=== PATIENT | female | born 1945 | race Caucasian/White ===

== ENCOUNTER → 2017-01-15 | Outpatient (CLI) | payer MEDICARE ==
--- NOTE | 2017-01-15 16:06 | BD ---
EXAMINATION TYPE: MG DEXA axial skeleton. DATE OF EXAM: 01/15/2017 COMPARISON: 2009 CLINICAL HISTORY: 71-year-old female post menopausal Height: 5'3 Weight: 150 FRAX RISK QUESTIONS: Alcohol (3 or more units per day): no Family History (Parent hip fracture): no Glucocorticoids (More than 3mos): no (Ex: prednisone, prednisolone, methylprednisolone, dexamethasone, and hydrocortisone). History of Fracture in Adulthood: no Secondary Osteoporosis: 1. Type 1 Diabetes: no 2. Hyperthyroidism: no 3. Menopause before 45: no 4. Malnutrition: no 5. Chronic liver disease: no Rheumatoid Arthritis: no Current Tobacco Use: no RISK FACTORS HISTORY OF: Surgery to /Hip(right/left)/ When: total hips 1995 Active: no Postmenopausal woman: yes Lost more than 2 inches in height since high school: yes Frequent falls: yes MEDICATIONS: Thyroid Medications: Which medication: Synthroid How Lon years Additional Medications: blood pressure, cholesterol, anti depressant Additional History: pt uses cane EXAM MEASUREMENTS: Bone mineral densitometry was performed using the [employer] System. Bone mineral density as measured about the Lumbar spine is: ----- L1-L4(G/cm2): 1.654 T Score Values are as follows: ----- L2: 3.8 ----- L3: 5.3 ----- L4: 3.8 ----- L1-L4: 3.9 Bone mineral density has: Increased 4.2% since study of: 05/13/2010 IMPRESSION: Normal bone mineral density as measured in the lumbar spine only. There has been prior bilateral hip surgery. Consider repeating this study in 5 years or sooner if there is some new clinical indication. NOTE: T-SCORE=SD OF THE YOUNG ADULT MEAN.
--- NOTE | 2017-01-17 06:59 | MM ---
Reason for exam: screening (asymptomatic). Last mammogram was performed 1 year and 2 months ago. History: Patient is postmenopausal and had first child at age 31. Family history of premenopausal breast cancer in maternal cousin at age 40. Benign right mammotome panel of the right breast, May 23, 2010. Benign excisional biopsy of the left breast. Took estrogen for 22 years 6 months beginning at age 44. Took progesterone for 22 years 6 months beginning at age 44. Physical Findings: A clinical breast exam by your physician is recommended on an annual basis and results should be correlated with mammographic findings. MG 3D Screening Mammo W/Cad Bilateral CC and MLO view(s) were taken. Prior study comparison: November 23, 2015, bilateral MG 3d screening mammo w/cad. June 22, 2014, bilateral MG screening mammo w CAD. May 30, 2013, CAD bilateral diagnostic mammogram. There are scattered fibroglandular densities. Previous mammotome biopsy in the right breast. No significant changes when compared with prior studies. ASSESSMENT: Negative, BI-RAD 1 RECOMMENDATION: Routine screening mammogram of both breasts in 1 year.
== END | disposition home or self-care (01) ==
LOC: RADMAMWWP 11:55
PROVIDERS: ATTEND Internal Medicine
DX: Z12.31 Encounter for screening mammogram for malignant neoplasm of breast (principal); Z78.0 Asymptomatic menopausal state
CPT/HCPCS: 77080; 77063; G0202

== ENCOUNTER → 2017-05-15 | Outpatient (CLI) | payer MEDICARE ==
--- NOTE | 2017-05-15 09:14 | MR ---
EXAMINATION TYPE: MR shoulder RT wo con DATE OF EXAM: 05/15/2017 8:03 AM COMPARISON: NONE HISTORY: Right shoulder pain TECHNIQUE: Multiplanar multispin echo imaging of the shoulder was performed. FINDINGS: Rotator cuff : Marked irregularity of the supraspinatus tendon and portions of the infraspinatus tend on compatible with tendinopathy. Full thickness partial tear of the supraspinatus tendon anteriorly. Tendinosis subscapularis tendon noted as well. Bursa: No bursal effusion or thickening is seen. Musculature: There is no muscular tear, contusion, or atrophy. Acromioclavicular joint : Elevation humeral head relative to the central glenoid axis resulting in se george subacromial impingement. Subacromial spurring with moderately severe AC joint arthropathy.. Osseous structures : Cystic degenerative change greater humeral tuberosity. No evidence for fracture or osseous lesion within the oosmi-up-evyt. Humeral head bony spurring. Long biceps tendon : The biceps tendon is normally situated within the bicipital groove. No complete or partial biceps tendon tear is present. Tendinosis intra-articular portion of the biceps tendon. Glenohumeral Joint fluid : There is no glenohumeral joint effusion. Cartilage and Bone : No focal hyaline cartilage defects are noted. No Hill-Sachs, reverse Hill-Sachs, or bony Bankart lesions are seen. Labrum : Diminutive superior and inferior glenoid labrum suspicious for chronic labral tears.. OTHER FINDINGS : none IMPRESSION: 1. Severe tendinopathy supraspinatus and infraspinatus tendons. This partial tear as discussed. Bethany tion humeral head resulting in severe subacromial impingement. 2. Cystic degenerative change. 3. Chronic glenoid labral tears.
== END | disposition home or self-care (01) ==
LOC: RADMRIMAIN 07:15
PROVIDERS: ATTEND Internal Medicine Hematology & Oncology
DX: S43.491A Other sprain of right shoulder joint, initial encounter (principal); M67.813 Other specified disorders of tendon, right shoulder

== ENCOUNTER 2017-05-18 11:35 | Inpatient (IN) | payer MEDICARE ==
[2017-05-18] MEDS ORDERED: SODIUM CHLORIDE 0.9% 500 ML IV STA (11:57)
--- NOTE | 2017-05-18 12:01 | ED ---
Overdose HPI - General Chief Complaint: Overdose Stated Complaint: overdose Time Seen by Provider: 05/18/17 11:50 Source: patient, family, RN notes reviewed Mode of arrival: wheelchair Limitations: no limitations - History of Present Illness Initial Comments: This is a 72-year-old female history depression and other medical issues who apparently has not been sleeping well recently she was told she could take an extra Seroquel which she did. She had taken 2.5 mg Ambien apparently still could not sleep with her came home he found that she had taken probably 15 5 mg Ambien somewhere around 9:30 this morning. Patient was brought in for evaluation this unclear whether this was accidental or purposeful. No other reported medications were consume this morning. - Related Data Home Medications Medication Instructions Recorded Confirmed Aspirin 81 mg PO DAILY 12/02/14 05/18/17 Calcium Carbonate/Vitamin D3 1 tab PO DAILY 12/02/14 05/18/17 [Calcium 600-Vit D3 400 Tablet] Levothyroxine Sodium [Synthroid] 50 mcg PO SUMOWETHFR 12/02/14 05/18/17 Multivitamins, Thera [Multivitamin 1 tab PO DAILY 12/02/14 05/18/17 (formulary)] lamoTRIgine [LaMICtal] 150 mg PO DAILY 05/01/15 05/18/17 Lisinopril [Zestril] 20 mg PO DAILY 10/14/15 05/18/17 Potassium Chloride ER [K-Dur 10] 10 meq PO DAILY 10/14/15 05/18/17 QUEtiapine [SEROquel] 25 mg PO HS 10/14/15 05/18/17 Cholecalciferol [Vitamin D3] 1,000 unit PO DAILY 05/18/17 05/18/17 Folic Acid 0.4 mg PO DAILY 05/18/17 05/18/17 Hydrocortisone Cream 1 applic TOPICAL BID PRN 05/18/17 05/18/17 [Hydrocortisone 2.5% Cream] L.acidoph,Paracasei, B.lactis 1 cap PO DAILY 05/18/17 05/18/17 [Probiotic] Latanoprost Ophth [Xalatan 0.005%] 1 drops BOTH EYES HS 05/18/17 05/18/17 Levothyroxine Sodium [Synthroid] 100 mcg PO TUSA 05/18/17 05/18/17 Methylphenidate HCl [Concerta] 18 mg PO DAILY 05/18/17 05/18/17 Sertraline HCl [Zoloft] 50 mg PO DAILY 05/18/17 05/18/17 Vortioxetine Hydrobromide 5 mg PO DAILY 05/18/17 05/18/17 [Trintellix] amLODIPine BESYLATE [Norvasc] 10 mg PO HS 05/18/17 05/18/17 Allergies Allergy/AdvReac Type Severity Reaction Status Date / Time OPIATES AdvReac Unknown AGITATION Uncoded 05/18/17 11:43 Review of Systems ROS Statement: Those systems with pertinent positive or pertinent negative responses have been documented in the HPI. ROS Other: All systems not noted in ROS Statement are negative. Past Medical History Past Medical History: Asthma, GERD/Reflux, Hypertension, Skin Disorder, Thyroid Disorder Additional Past Medical History / Comment(s): PAST HX OF MIGRAINES, HX OF GERD- ( NO PROBLEM NOW), HYPOTHYROID. STATES SHE HAS LITTLE BUMPS ON SKIN THAT ITCH- SHE SEEN HER DRVeronica-IVETTE VALLE., STATES SHE HAD RECTAL PROLAPSE. History of Any Multi-Drug Resistant Organisms: None Reported Past Surgical History: Bariatric Surgery, Joint Replacement, Orthopedic Surgery Additional Past Surgical History / Comment(s): PANNICULECTOMY, LAP BAND(2003), RIGHT TOTAL HIP X2, LEFT TOTAL HIP X2, LLOYD TOTAL KNEES, LLOYD CATARACTS, RIGHT THUMB, D&C'S. Past Anesthesia/Blood Transfusion Reactions: Motion Sickness, Postoperative Nausea & Vomiting (PONV) Past Psychological History: ADD/ADHD, Anxiety, Depression Smoking Status: Former smoker Past Alcohol Use History: Occasional Past Drug Use History: None Reported - Past Family History Mother History Unknown: Yes Family Medical History: Cancer Additional Family Medical History / Comment(s): BLADDER CA- AT 70 YEARS OLD. Father History Unknown: Yes Family Medical History: Coronary Artery Disease (CAD), Myocardial Infarction ([place] ) Additional Family Medical History / Comment(s): AT 60 YRS OLD General Exam - General Exam Comments Initial Comments: This is a well-developed well-nourished lethargic female she does respond to questioning and does follow commands. Limitations: no limitations General appearance: lethargic Head exam: Present: atraumatic, normocephalic, normal inspection Eye exam: Present: normal appearance, PERRL, EOMI. Absent: scleral icterus, conjunctival injection, periorbital swelling ENT exam: Present: normal exam, mucous membranes moist Neck exam: Present: normal inspection. Absent: tenderness, meningismus, lymphadenopathy Respiratory exam: Present: normal lung sounds bilaterally. Absent: respiratory distress, wheezes, rales, rhonchi, stridor Cardiovascular Exam: Present: regular rate, normal rhythm, normal heart sounds. Absent: systolic murmur, diastolic murmur, rubs, gallop, clicks GI/Abdominal exam: Present: soft, normal bowel sounds. Absent: distended, tenderness, guarding, rebound, rigid Extremities exam: Present: normal inspection, full ROM, normal capillary refill. Absent: tenderness, pedal edema, joint swelling, calf tenderness Back exam: Present: normal inspection Neurological exam: Present: alert, oriented X3, CN II-XII intact Psychiatric exam: Present: depressed, flat affect Skin exam: Present: warm, dry, intact, normal color. Absent: rash Course Vital Signs 05/18/17 05/18/17 05/18/17 11:41 12:07 13:26 Temperature 97.7 F Pulse Rate 80 66 76 Respiratory 18 12 14 Rate Blood Pressure 125/74 110/68 102/64 O2 Sat by Pulse 89 L 92 L 97 Oximetry Medical Decision Making - Medical Decision Making I did discuss [employer] the patient and with her as well as with Dr. Villalobos. Patient will be admitted she was medically cleared she was evaluated and will be admitted for inpatient treatment - Lab Data Result diagrams: 05/18/17 11:55 05/18/17 11:55 Lab Results 05/18/17 05/18/17 05/18/17 Range/Units 11:55 11:55 11:55 WBC 10.1 (3.8-10.6) k/uL RBC 4.82 (3.80-5.40) m/uL Hgb 14.6 (11.4-16.0) gm/dL Hct 44.6 (34.0-46.0) % MCV 92.5 (80.0-100.0) fL MCH 30.2 (25.0-35.0) pg MCHC 32.7 (31.0-37.0) g/dL RDW 13.6 (11.5-15.5) % Plt Count 217 (150-450) k/uL Neutrophils % 78 % Lymphocytes % 16 % Monocytes % 3 % Eosinophils % 1 % Basophils % 0 % Neutrophils # 7.9 H (1.3-7.7) k/uL Lymphocytes # 1.6 (1.0-4.8) k/uL Monocytes # 0.3 (0-1.0) k/uL Eosinophils # 0.1 (0-0.7) k/uL Basophils # 0.0 (0-0.2) k/uL Sodium 138 (137-145) mmol/L Potassium 4.1 (3.5-5.1) mmol/L Chloride 105 (98-107) mmol/L Carbon Dioxide 24 (22-30) mmol/L Anion Gap 9 mmol/L BUN 14 (7-17) mg/dL Creatinine 0.88 (0.52-1.04) mg/dL Est GFR (MDRD) Af Amer >60 (>60 ml/min/1.73 sqM) Est GFR (MDRD) Non-Af >60 (>60 ml/min/1.73 sqM) Glucose 124 H (74-99) mg/dL Calcium 10.0 (8.4-10.2) mg/dL Total Bilirubin 0.3 (0.2-1.3) mg/dL AST 23 (14-36) U/L ALT 33 (9-52) U/L Alkaline Phosphatase 59 (38-126) U/L Total Creatine Kinase 46 (30-135) U/L CK-MB (CK-2) 1.1 (0.0-2.4) ng/mL CK-MB (CK-2) Rel Index 2.4 Total Protein 7.6 (6.3-8.2) g/dL Albumin 4.1 (3.5-5.0) g/dL Amylase 67 (30-110) U/L Lipase 76 (23-300) U/L Salicylates <1.0 mg/dL Urine Opiates Screen (NotDetected) Ur Oxycodone Screen (NotDetected) Urine Methadone Screen (NotDetected) Ur Propoxyphene Screen (NotDetected) Acetaminophen <10.0 ug/mL Ur Barbiturates Screen (NotDetected) U Tricyclic Antidepress (NotDetected) Ur Phencyclidine Scrn (NotDetected) Ur Amphetamines Screen (NotDetected) U Methamphetamines Scrn (NotDetected) U Benzodiazepines Scrn (NotDetected) Urine Cocaine Screen (NotDetected) U Marijuana (THC) Screen (NotDetected) Serum Alcohol <10 mg/dL 05/18/17 Range/Units 12:55 WBC (3.8-10.6) k/uL RBC (3.80-5.40) m/uL Hgb (11.4-16.0) gm/dL Hct (34.0-46.0) % MCV (80.0-100.0) fL MCH (25.0-35.0) pg MCHC (31.0-37.0) g/dL RDW (11.5-15.5) % Plt Count (150-450) k/uL Neutrophils % % Lymphocytes % % Monocytes % % Eosinophils % % Basophils % % Neutrophils # (1.3-7.7) k/uL Lymphocytes # (1.0-4.8) k/uL Monocytes # (0-1.0) k/uL Eosinophils # (0-0.7) k/uL Basophils # (0-0.2) k/uL Sodium (137-145) mmol/L Potassium (3.5-5.1) mmol/L Chloride (98-107) mmol/L Carbon Dioxide (22-30) mmol/L Anion Gap mmol/L BUN (7-17) mg/dL Creatinine (0.52-1.04) mg/dL Est GFR (MDRD) Af Amer (>60 ml/min/1.73 sqM) Est GFR (MDRD) Non-Af (>60 ml/min/1.73 sqM) Glucose (74-99) mg/dL Calcium (8.4-10.2) mg/dL Total Bilirubin (0.2-1.3) mg/dL AST (14-36) U/L ALT (9-52) U/L Alkaline Phosphatase (38-126) U/L Total Creatine Kinase (30-135) U/L CK-MB (CK-2) (0.0-2.4) ng/mL CK-MB (CK-2) Rel Index Total Protein (6.3-8.2) g/dL Albumin (3.5-5.0) g/dL Amylase (30-110) U/L Lipase (23-300) U/L Salicylates mg/dL Urine Opiates Screen Not Detected (NotDetected) Ur Oxycodone Screen Not Detected (NotDetected) Urine Methadone Screen Not Detected (NotDetected) Ur Propoxyphene Screen Not Detected (NotDetected) Acetaminophen ug/mL Ur Barbiturates Screen Not Detected (NotDetected) U Tricyclic Antidepress Detected H (NotDetected) Ur Phencyclidine Scrn Not Detected (NotDetected) Ur Amphetamines Screen Not Detected (NotDetected) U Methamphetamines Scrn Not Detected (NotDetected) U Benzodiazepines Scrn Not Detected (NotDetected) Urine Cocaine Screen Not Detected (NotDetected) U Marijuana (THC) Screen Not Detected (NotDetected) Serum Alcohol mg/dL - EKG Data -: EKG Interpreted by [facility] EKG shows normal: sinus rhythm, axis, intervals, QRS complexes, ST-T waves (EKG shows normal sinus rhythm of 72. Interval 158 QRS duration 76 QT since QTC of 392/429 ST-T wave changes.) Rate: normal - Radiology Data Radiology results: report reviewed (I did review the imaging and reports no acute findings.), image reviewed Disposition Clinical Impression: Drug overdose, Depression, Bipolar 1 disorder, depressed Disposition: TRANSFER TO PSYCH HOSP/UNIT Condition: Stable Referrals: Carlos Alberto Guerra MD [Primary Care Provider] - 1-2 days
[2017-05-18] MEDS ORDERED: SODIUM CHLORIDE 0.9% 1,000 ML IV STA (12:04)
[2017-05-18 12:21] LABS: Basophils % (A) 0 %; CH 30.5; CHCM 33.2; Eosinophils # (A) 0.1 k/uL (0-0.7); Eosinophils % (A) 1 %; HCT 44.6 % (34.0-46.0); HDW 2.32; HGB 14.6 gm/dL (11.4-16.0); Luc % (Auto) 1; Lymphocytes # (A) 1.6 k/uL (1.0-4.8); Lymphocytes % (A) 16 %; MCH 30.2 pg (25.0-35.0); MCHC 32.7 g/dL (31.0-37.0); MCV 92.5 fL (80.0-100.0); Mean Platelet Volume 8.6; Monocytes # (A) 0.3 k/uL (0-1.0); Monocytes % (A) 3 %; Neutrophils # (A) 7.9 k/uL (1.3-7.7); Neutrophils % (A) 78 %; RBC 4.82 m/uL (3.80-5.40); RDW 13.6 % (11.5-15.5); WBC 10.1 k/uL (3.8-10.6); WBC (Perox) 10.04
[2017-05-18 12:30] LABS: ALT 33 U/L (9-52); AST 23 U/L (14-36); Acetaminophen <10.0 ug/mL; Alcohol <10 mg/dL; Alkaline Phosphatase 59 U/L (38-126); Amylase 67 U/L (30-110); Anion Gap 9 mmol/L; Blood Urea Nitrogen 14 mg/dL (7-17); Carbon Dioxide 24 mmol/L (22-30); Chloride 105 mmol/L (98-107); Glucose 124 mg/dL (74-99); Non-African American GFR(MDRD) >60 (>60 ml/min/1.73 sqM); Potassium 4.1 mmol/L (3.5-5.1); Salicylate <1.0 mg/dL; Sodium 138 mmol/L (137-145); Total Bilirubin 0.3 mg/dL (0.2-1.3); Total Protein 7.6 g/dL (6.3-8.2)
--- NOTE | 2017-05-18 12:48 | XR ---
EXAMINATION TYPE: XR chest 1V portable DATE OF EXAM: 05/18/2017 COMPARISON: NONE HISTORY: Chest pain and depression. TECHNIQUE: Single frontal view of the chest is obtained. FINDINGS: There is no focal air space opacity, pleural effusion, or pneumothorax seen. The cardiac silhouette size is again upper limits of normal. The osseous structures are intact with degenerativ e changes at the greater tuberosities. IMPRESSION: No acute process.
[2017-05-18 12:58] LABS: Creatine Kinase MB 1.1 ng/mL (0.0-2.4)
[2017-05-18] MEDS ORDERED: amLODIPine 10 MG TAB PO SCH (21:00)
[2017-05-18] MEDS: LATANOPROST 0.005% OPHTH DROPS 2.5 ML BTL BOTH EYES SCH (21:03)
[2017-05-18] MEDS: lamoTRIgine 25 MG TAB PO SCH (21:04)
[2017-05-18] MEDS: QUEtiapine 25 MG TAB PO SCH (21:04)
[2017-05-19] MEDS: MAG HYDROX/AL HYDROX/SIMETH 30 ML CUP PO PRN (02:08)
[2017-05-19] MEDS: ACETAMINOPHEN TAB 325 MG TAB PO PRN ×2 (04:36→13:55)
[2017-05-19] MEDS: LEVOTHYROXINE 50 MCG TAB PO SCH (06:04)
--- NOTE | 2017-05-19 07:34 | CONS ---
CONSULTATION Mrs. Austin presented and was brought into the emergency room earlier today with change in mental status. Apparently, she was found lethargic earlier by her . The patient apparently had difficulty falling asleep last evening. She had the Ambien along with an extra Seroquel and still apparently did not sleep well through the night and into the morning ingested approximately 15 tablets of 5 mg Ambien tablets approximately 9:30 in the morning and apparently her discovered the patient and brought her to the emergency room. She has been somewhat lethargic according to the record, but appears to be generally responsive during this period of time. PAST MEDICAL HISTORY: Is notable for a history of bipolar disorder, attention deficit disorder and general anxiety disorder for which she is followed as an outpatient by Psychiatry. Apparently the patient states that she has been stopping her previous medications for her bipolar depressed as stated. She also has other past medical history that includes hypertension. There is a history of mild intermittent asthma, hypothyroidism on replacement therapy. There is a history of benign monoclonal gammopathy for which she is followed by Hematology. She has had a history of major depression in the past. Patient also has had a numbers surgeries regarding her osteoarthritis. She has had both left and right hip surgeries done in the past and revised in early . She has also had a right knee surgery in 2003 and thumb surgery. She has had appendectomy performed back in 2011 and previous D and C and tubal ligations in the past and previous history of laparoscopic gastric banding. No history of myocardial infarction, diabetes, or stroke. HOME MEDICATIONS: Include aspirin 81 mg daily, calcium 600 with vitamin D3 400 one daily, levothyroxine 50 mcg p.o. daily except for Saturdays and Tuesdays for which she takes 100 mcg. She is on Lamictal 150 mg daily, multiple vitamin daily. Lisinopril was recently decreased from 20 to 10 mg and potassium K-Dur 10 mEq daily. Seroquel 25 mg at bedtime, folic acid 0.4 mg daily, probiotic daily, Xalatan eyedrops 1 drop in both eyes 0.005%, Concerta 18 mg daily, but apparently patient has dropped on her recently and also Zoloft 50 mg daily. The Trintellix for bipolar 5 mg daily as mentioned the patient has stopped and amlodipine 10 mg at bedtime which has recently been decreased to 5 mg. Apparently, she has had agitation with opiates in the past. No other reaction. REVIEW OF SYSTEMS: Presently is negative for any unusual headache. No visual disturbances. She has had some nausea but no vomiting. She has had some diffuse epigastric upset recently , but no more pain or urinary or bowel symptoms. No unusual edema. FAMILY HISTORY: Is positive for coronary artery disease. SOCIAL HISTORY: The patient is a former smoker and apparently does drink some wine on a weekly basis and she does live locally at home with her . Social history is otherwise as stated above. PHYSICAL EXAMINATION: She is on my exam fairly easily aroused, alert and oriented. At times during the examination she is tearful. Vital signs revealed a blood pressure of 102/70 with a pulse of 80 and regular. Respirations were 16 and she was afebrile. Head is atraumatic. The extraocular movements were intact. Neck is supple. No thyromegaly or adenopathy detected. Lungs were clear to auscultation and percussion. HEART: Regular without murmur. Breasts and pelvic exam is deferred. Abdomen is soft and nontender. Extremities revealed no edema. Neurologically she is alert, oriented at this time x3. Cranial nerves were intact. She is moving all extremities without focal neurological changes. LABORATORY VALUES: General chemistries were unremarkable. Chest x-ray revealed no acute changes. EKG revealed regular sinus rhythm without acute changes. IMPRESSION: Overall impression at this point is this is a 72-year-old female admitted to the to the psychiatric floor here at [facility] with a history of bipolar and recent depression, having stopped some of her medications and ingestion of overdose of Ambien. She does have a past medical history as stated above with a history of bipolar, depression and attention deficit disorder, along with hypertension, asthma, hypothyroidism, degenerative joint disease, and the multiple surgeries that she has had in the past and also post bariatric surgery. Overall at this point though her cardiovascular status appears stable. We will hold her antihypertensives tonight and see how her blood pressure is in the morning. Await for further psychiatric input. The labs also being done in the morning will include a thyroid along with electrolytes. I would continue her present thyroid at this dose and further recommendations pending clinical response and results of above. MMODL / IJN: [id number] / [facility]ERSum[facility]
[2017-05-19] MEDS ORDERED: BACITRACIN OINT 1 EACH PACKET TOPICAL ONE (08:04)
[2017-05-19] MEDS: CHOLECALCIFEROL 1,000 UNIT TAB PO SCH (08:08)
[2017-05-19] MEDS: CALCIUM CARB-VIT D 500MG-200UN 1 EACH TAB PO SCH (08:08)
[2017-05-19] MEDS: LISINOPRIL 10 MG TAB PO SCH (08:08)
[2017-05-19] MEDS: SERTRALINE 50 MG TAB PO SCH (08:08)
[2017-05-19] MEDS: ASPIRIN 81 MG PO SCH (08:08)
[2017-05-19] MEDS: FOLIC ACID 1 MG TAB PO SCH (08:08)
[2017-05-19 08:41] LABS: Basophils % (A) 0 %; CH 30.9; CHCM 33.2; Eosinophils # (A) 0.1 k/uL (0-0.7); Eosinophils % (A) 1 %; HCT 44.5 % (34.0-46.0); HDW 2.45; HGB 14.7 gm/dL (11.4-16.0); Luc # (Auto) 0.06; Luc % (Auto) 1; Lymphocytes # (A) 1.1 k/uL (1.0-4.8); Lymphocytes % (A) 15 %; MCH 30.8 pg (25.0-35.0); MCHC 32.9 g/dL (31.0-37.0); MCV 93.6 fL (80.0-100.0); Mean Platelet Volume 7.8; Monocytes # (A) 0.3 k/uL (0-1.0); Monocytes % (A) 3 %; Neutrophils # (A) 5.9 k/uL (1.3-7.7); Neutrophils % (A) 80 %; RBC 4.76 m/uL (3.80-5.40); RDW 12.3 % (11.5-15.5); WBC 7.4 k/uL (3.8-10.6); WBC (Perox) 7.27
[2017-05-19] MEDS ORDERED: LISINOPRIL 20 MG TAB PO SCH (09:00)
[2017-05-19 09:01] LABS: Anion Gap 11 mmol/L; Blood Urea Nitrogen 13 mg/dL (7-17); Carbon Dioxide 21 mmol/L (22-30); Chloride 107 mmol/L (98-107); Cholesterol 229 mg/dL (<200); Glucose 104 mg/dL (74-99); HDL Cholesterol 77 mg/dL (40-60); Non-African American GFR(MDRD) >60 (>60 ml/min/1.73 sqM); Potassium 4.1 mmol/L (3.5-5.1); Sodium 139 mmol/L (137-145)
[2017-05-19] MEDS: MULTIVITAMINS, THERA 1 EACH TAB PO SCH (11:25)
--- NOTE | 2017-05-19 15:41 | HP ---
HISTORY AND PHYSICAL IDENTIFYING DATA: The patient is a 72-year-old female. She resides with her . She was admitted through the emergency room. CHIEF COMPLAINT: The patient has had some issues with depression, anxiety and poor sleep. She impulsively took approximately 17 tablets of Ambien 5 mg, which she said she took out of frustration because she was feeling bad physically and mentally. HISTORY OF PRESENT ILLNESS: The patient was not able to give a clear past history. Medical records are not available to clarify past psychiatric history. The patient reports that she has had long-term problems with depression. She said that she first got started on medications around 1982. She said she took Xanax at that time and continued on Xanax until about 2 years ago. She said that she had some exacerbation of psychiatric issues around 1992, though she was not clear about details. She said a little more than 2 years ago she had an episode where she apparently had manic symptoms. She described going for 2 weeks a with little or no sleep and significantly elevated mood. She had a psychiatric hospitalization in [place]. She apparently was diagnosed with bipolar disorder. She had been started on lithium, though she said she tolerated lithium poorly. She was vague about details. She also said that at some point at that time she was started on Lamictal, though she did not find the Lamictal to be helpful in. She has been followed by Dr. Villalobos and noted that she had just seen him recently. She was not clear as to what adjustments might have been made with her medications. She notes that she has had a lot of physical issues including repeat joint replacement surgeries involving both hips and both knees. She had bariatric surgery with lap band placement, though had complications with that. She seemed to indicate that other than the 2 week episode of elevated mood she had prior to her previous hospitalization that she has not had other manic symptoms before that time or since. She says mostly she has struggled with depression issues. She said that this last summer she was doing fairly well. She was active, doing some traveling including a cruise. She did feel that some of her medications were causing her some problems, though she was not clear about details. home psychotropic medications include Lexapro 10 mg a day, Seroquel 25 mg at bedtime. Strattera 50 mg a day. Lamictal 200 mg a day. She says she has been on a muscle relaxant, though that did not show up on the medications that were recorded as her home medications. She acknowledges that she has had some trouble with her medications, then has some help at home keeping her medications organized. When discussing the overdose of Ambien, she said that she took about 17 tablets of her 's 5 mg Ambien. She was not clear about the idea that it was or was not a suicide attempt. She said she was very frustrated and feeling quite negative and took the medicine in a distressed state. Currently, the patient is prescribed Zoloft 50 mg a day, Concerta 18 mg a day, Trintellix 5 mg a day, Lamictal 150 mg a day and Seroquel 25 mg a day as her psychotropic medications. She is admitted for further evaluation. SUBSTANCE USE HISTORY: Patient reports no current or past problems with any substance abuse issues. MEDICAL HISTORY: The patient has a history of asthma, GERD, hypertension, thyroid disease. The past history of migraine headaches. Further medical history and review of systems as per medical consultation. FAMILY AND SOCIAL HISTORY: Patient was vague on details. She lives with her . 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 She said she has to graduate degrees in. She currently is not working. She is ambulatory though requires 2 walking canes. MENTAL STATUS EXAM: Patient was lying in bed. She gave fair eye contact. Psychomotor activity was slowed. Speech was monotone and soft. She was spontaneous. At times she tended to ramble and was somewhat disorganized in her thoughts. Her affect was anxious. Mood depressed. She was moderately distressed. There was no indication for thought disorder. She did make an effort to answer formal cognitive questions. Insight was uncertain. Judgment poor. Fund of knowledge average. PHYSICAL EXAMINATION: Physical exam as per medical consultation. ASSESSMENT: This 70-year-old female she is admitted for a history of depression and possible bipolar disorder. She has a number of general health complications that may be impacting her current situation. Psychosocial stressors are unclear. Her impulse towards taking excessive medications is not fully clear as far as motivation. Her strengths include a long history of good function academically and professionally. Weakness includes possible cognitive issues. DIAGNOSES: 1. Major depression with acute exacerbation. 2. Rule out bipolar disorder. 3. History of bariatric surgery with lap band placement with complications. 4. Gastroesophageal reflux disease. 5. Hypertension. 6. Hypothyroidism. 7. Asthma. RECOMMENDATIONS: Patient will be admitted for comprehensive medical psychiatric and psychosocial evaluation. We will engage the patient in individual and group therapeutic activities. I will continue the patient on Zoloft 50 mg a day, Seroquel 25 mg a day and Lamictal 25 mg at bedtime. At this point, I will keep the patient off her Concerta and Trintellix. She will need time to recover from excessive exposure to Ambien. We will focus on stabilization and discharge planning. MMLAVELLE / IJPhi: [id number] /
[2017-05-19] MEDS: lamoTRIgine 25 MG TAB PO SCH (20:27)
[2017-05-19] MEDS: QUEtiapine 25 MG TAB PO SCH (20:27)
[2017-05-19] MEDS: LATANOPROST 0.005% OPHTH DROPS 2.5 ML BTL BOTH EYES SCH (20:27)
[2017-05-20] MEDS: MAGNESIUM HYDROXIDE 2,400 MG/10 ML CUP PO PRN ×2 (00:27→16:20)
[2017-05-20] MEDS: ACETAMINOPHEN TAB 325 MG TAB PO PRN ×2 (00:27→16:19)
[2017-05-20] MEDS: MAG HYDROX/AL HYDROX/SIMETH 30 ML CUP PO PRN (00:31)
[2017-05-20] MEDS: LEVOTHYROXINE 50 MCG TAB PO SCH (05:35)
[2017-05-20] MEDS ORDERED: PANTOPRAZOLE 40 MG TABLET PO SCH (07:30)
[2017-05-20] MEDS: FOLIC ACID 1 MG TAB PO SCH (08:33)
[2017-05-20] MEDS: SERTRALINE 50 MG TAB PO SCH (08:33)
[2017-05-20] MEDS: CALCIUM CARB-VIT D 500MG-200UN 1 EACH TAB PO SCH (08:33)
[2017-05-20] MEDS: LISINOPRIL 10 MG TAB PO SCH (08:33)
[2017-05-20] MEDS: ASPIRIN 81 MG PO SCH (08:33)
[2017-05-20] MEDS: MULTIVITAMINS, THERA 1 EACH TAB PO SCH (08:33)
[2017-05-20] MEDS: CHOLECALCIFEROL 1,000 UNIT TAB PO SCH (08:33)
--- NOTE | 2017-05-20 12:01 | P.PN ---
Progress Note - Text The patient is a 72-year-old female who presented to the emergency room on the 10th after ingestion of the numerous Ambien tablets. She was presently lethargic on presentation. Apparently she has been complaining of some refractory depression as of late. She has been admitted here to the psychiatric floor here at [facility]. She states she overall feels better. She does complain of some epigastric discomfort. She denies any nausea vomiting or chest pain. No shortness of breath. No unusual urinary or bowel symptoms. vital signs reveal a temperature 97.5 with a pulse of 102 and respirations 16. Blood pressure 133/87 and she is 99% saturated on room air. She is sitting up at the side of the bed alert and oriented. In no acute distress. Lung and heart examination is clear and regular. Abdomen is generally soft and nontender without rebound guarding or masses detected. No unusual edema. No focal neurological deficits noted. laboratory: CBC from yesterday was unremarkable. Electrolytes also were normal although CO2 content was 21. Blood sugar was 104. Her A1c is 5.4. Calcium is 10. GFR is greater than 60. Mild elevation of LDL cholesterol of 133. Total cholesterol 229. Moderately elevated cholesterol at 77 and triglycerides were 93. Would not add cholesterol medication at this time. All her previous liver function testing were good. Amylase and lipase normal. TSH normal at 1.69. Impressions and plan Overall this 72-year-old female is generally doing well. She has had her psychiatric evaluation and treatment is in progress. She does complain of some epigastric discomfort and her Protonix will be increased to twice a day. This should take the place of her omeprazole. if symptoms persist she may need further gastrointestinal evaluation and likely can be done as an outpatient later. She is asking for home medication that apparently is [id number] for her a lactose intolerance and I did discuss with nursing staff that her can bring those in for her. Blood pressures are doing fairly well and continue present regimen pending further readings. Please call for questions concerns or problems. Dr. Man consumer insights specialist for me over the weekend.
[2017-05-20] MEDS: PANTOPRAZOLE 40 MG TABLET PO SCH (16:21)
[2017-05-20] MEDS: LACTASE ENZYME PO PRN ×2 (17:34→20:39)
[2017-05-20] MEDS: lamoTRIgine 25 MG TAB PO SCH (20:59)
[2017-05-20] MEDS: LATANOPROST 0.005% OPHTH DROPS 2.5 ML BTL BOTH EYES SCH (20:59)
[2017-05-20] MEDS ORDERED: QUEtiapine 25 MG TAB PO PRN (21:00)
[2017-05-20] MEDS ORDERED: QUEtiapine 25 MG TAB PO SCH (21:00)
[2017-05-20] MEDS ORDERED: traZODone HCL 50 MG TAB PO SCH (21:00)
--- NOTE | 2017-05-20 21:21 | PN ---
PROGRESS NOTE DATE OF SERVICE: 05/20/2017. CHIEF COMPLAINT: The patient has had some issues with depression, anxiety and poor sleep. She impulsively took 17 tablets of Ambien 5 mg, which she said she took out of frustration because she was feeling bad physically and mentally. INTERVAL HISTORY: Patient has been doing fairly well. She had a quiet evening last night. She said unfortunately she only slept about 3 hours. She notes that she often has to wake up in the night to urinate and then it is very difficult for her to get back to sleep. She does say that her mood is improved. She has a better outlook. She has been able to begin ambulating with the assistance of her walking cane. She says this is been help for her just to be able to be more physically active. She has been up and about. She has been appropriate in her behavior. She has had some problems with diarrhea. She has not had other change in her general health. She tolerates psychotropic medications. MENTAL STATUS: Patient gave good eye contact. She was a little restless. Her thoughts were clear. Her affect was a little constricted. She did smile some. Her mood was reserved, though not down or depressed. She did appear to be significantly distressed. ASSESSMENT: I will continue the current diagnosis and treatment plan. I will add trazodone 75 mg at bedtime in addition to her other psychotropic medications. The patient has shown improvement in her mood. We will continue to focus on stabilization and discharge planning. MMLAVELLE / MYRON: [id number] /
[2017-05-21] MEDS: ACETAMINOPHEN TAB 325 MG TAB PO PRN ×4 (01:56→19:05)
[2017-05-21] MEDS: LEVOTHYROXINE 50 MCG TAB PO SCH (05:44)
[2017-05-21] MEDS: CHOLECALCIFEROL 1,000 UNIT TAB PO SCH (09:23)
[2017-05-21] MEDS: CALCIUM CARB-VIT D 500MG-200UN 1 EACH TAB PO SCH (09:23)
[2017-05-21] MEDS: SERTRALINE 50 MG TAB PO SCH (09:23)
[2017-05-21] MEDS: FOLIC ACID 1 MG TAB PO SCH (09:23)
[2017-05-21] MEDS: PANTOPRAZOLE 40 MG TABLET PO SCH ×2 (09:23→16:55)
[2017-05-21] MEDS: ASPIRIN 81 MG PO SCH (09:23)
[2017-05-21] MEDS: LISINOPRIL 10 MG TAB PO SCH (09:23)
--- NOTE | 2017-05-21 11:02 | P.PN ---
Progress Note - Text Interval history: The patient is found in her room she is lying awake in bed. She has her legs elevated due to experiencing dependent edema. The patient was admitted Sunday after overdosing with 17 Ambien tablets. The patient states that she hadn't slept well the night before felt overwhelmed in the morning and took the medication. She states it wasn't necessarily her intent to but knew she was assuming a safety risk by taking that many pills. She does have a history of an intentional suicide attempt with Xanax overdose proximally 2 years ago. The patient is known to my outpatient practice. In the recent past she had discontinued the Lamictal which was serving as a mood stabilizer. We have reinstituted the Lamictal and she is agreeable. She reports feeling overwhelmed with several stressors at home and focuses on communication difficulties with her spouse. We discussed the need for her to develop more productive activity for herself. She reports she has been responding well to supportive input from nursing and social work. Mental status exam: The patient is a female appearing her stated age. She is lying in bed. She is alert pleasant and cooperative. She endorses recent feelings of depression and frustration. She verbalizes no ongoing suicidal or homicidal ideation intent or plan. There is no report or evidence of psychosis. Thought process for the most part is linear she demonstrates no tangential thinking loose associations or flight of ideas. She does not appear hypomanic or manic at this time. She demonstrates no verbal or physical aggressiveness. No abnormal involuntary movements. Affect is expressive ranging from smiling to brief tearfulness. Plan: The patient will continue on her current psychotropic medications however we will discontinue the trazodone. She has been on that before with lack of efficacy. We will continue the Seroquel and titrate to 75 mg at bedtime Lamictal will be increased to 50 mg at bedtime continue Zoloft 50 mg daily. She was previously on one-to-one supervision due to fall risk after the Ambien overdose. It appears that she is able to ambulate as usual. Nursing will continue to monitor. She is encouraged to attend groups. We will monitor her safety in general. We will involve her as she will allow in treatment planning and discharge planning. The patient is not yet appropriate for discharge home given the recent overdose. Vital signs reviewed. Her primary care physician has seen her in the hospital and he will continue to follow.
[2017-05-21] MEDS: MULTIVITAMINS, THERA 1 EACH TAB PO SCH (11:46)
[2017-05-21] MEDS: LACTASE ENZYME PO PRN (20:18)
[2017-05-21] MEDS: amLODIPine 10 MG TAB PO SCH (21:08)
[2017-05-21] MEDS: lamoTRIgine 25 MG TAB PO SCH (21:09)
[2017-05-21] MEDS: LATANOPROST 0.005% OPHTH DROPS 2.5 ML BTL BOTH EYES SCH (21:09)
[2017-05-21] MEDS: QUEtiapine 25 MG TAB PO SCH (21:09)
[2017-05-22] MEDS: ACETAMINOPHEN TAB 325 MG TAB PO PRN ×3 (05:59→19:03)
[2017-05-22] MEDS: LEVOTHYROXINE 50 MCG TAB PO SCH (05:59)
[2017-05-22 06:00] VITALS: TEMP 97.6
--- NOTE | 2017-05-22 07:58 | P.PN ---
Progress Note - Text The patient is a 72-year-old female who presented to the emergency room on May 18 after ingestion of numerous Ambien tablets. Patient initially presented in a lethargic state. Prior to admission she had been having some refractory depression. Patient apparently also had been self adjusting her medication. She is presently on the psychiatric floor at [facility]. This morning she is sitting on the side of the bed. She states she overall feels better. She has some diffuse joint aches from her arthritis. Patient also fell when she was trying to open up her drawer on the bottom of her bed. Denies any specific head injury. Denies any chest pain or shortness of breath. No nausea or vomiting. This morning vital signs were a temperature of 97.6 with a pulse of 88 respirations 14. Blood pressure was 133/71. She is overall pleasant and oriented. No respiratory distress. No unusual edema. No new focal neurological changes. Patient has been up ambulating. No new labs this morning. Impressions and plans: psychiatric evaluation and treatment in process. Blood pressures are doing better on lisinopril and amlodipine. Overall her pulse and blood pressure are lower. Would continue present medications. Advance as per psychiatry.
[2017-05-22] MEDS: ASPIRIN 81 MG PO SCH (08:04)
[2017-05-22] MEDS: LISINOPRIL 10 MG TAB PO SCH (08:04)
[2017-05-22] MEDS: CHOLECALCIFEROL 1,000 UNIT TAB PO SCH (08:04)
[2017-05-22] MEDS: PANTOPRAZOLE 40 MG TABLET PO SCH ×2 (08:04→17:12)
[2017-05-22] MEDS: SERTRALINE 50 MG TAB PO SCH (08:05)
[2017-05-22] MEDS: CALCIUM CARB-VIT D 500MG-200UN 1 EACH TAB PO SCH (08:05)
[2017-05-22] MEDS: FOLIC ACID 1 MG TAB PO SCH (08:05)
--- NOTE | 2017-05-22 09:59 | P.PN ---
Progress Note - Text Interval history: The patient's is found in her room she follows me to an interview room. She has been compliant with her medications she reports attending some groups. She is using a wheelchair for stability as she has a known gait disturbance. She is feeling more hopeful. She denies having any suicidal ideation intent or plan. She has had a conversation with her . She spontaneously reports future oriented thinking in describing tasks that she wants to accomplish at home and resources she will employed. Mental status exam: The patient is an alert female she is dressed in hospital attire. She ambulates by pushing a wheelchair. Eye contact is appropriate speech is fluent spontaneous nonpressured. She indicates her mood is improving. She reports no suicidal or homicidal ideation intent or plan. She is endorsing no auditory or visual hallucinations or specific delusions. There is no observable evidence of psychosis. Thought process is linear she demonstrates no tangential thinking loose associations or flight of ideas. There is no observable evidence of hypomania or shekhar. She remains oriented to person place and date. She demonstrates no verbal or physical aggressiveness she demonstrates no abnormal involuntary movements. Affect is congruent to reported mood and appears more euthymic today. Plan: The patient is indicating improvement of her mood. She continues to be agreeable in terms of further utilization of Seroquel, Lamictal, Zoloft. She has been seen by her primary care physician again today Dr. Naik. She is encouraged to continue participating in the milieu. We will monitor her for safety. If she demonstrates continued stability and clinical improvement we will consider discharge in the next 1-2 days. Signs reviewed.
[2017-05-22] MEDS: MULTIVITAMINS, THERA 1 EACH TAB PO SCH (12:58)
[2017-05-22] MEDS: QUEtiapine 25 MG TAB PO SCH (21:24)
[2017-05-22] MEDS: amLODIPine 10 MG TAB PO SCH (21:24)
[2017-05-22] MEDS: lamoTRIgine 25 MG TAB PO SCH (21:24)
[2017-05-22] MEDS: LATANOPROST 0.005% OPHTH DROPS 2.5 ML BTL BOTH EYES SCH (21:25)
[2017-05-23] MEDS ORDERED: ACETAMINOPHEN TAB 325 MG TAB ONE (02:30)
[2017-05-23] MEDS: LEVOTHYROXINE 50 MCG TAB PO SCH (06:37)
[2017-05-23] MEDS: PANTOPRAZOLE 40 MG TABLET PO SCH (08:01)
[2017-05-23] MEDS: LISINOPRIL 10 MG TAB PO SCH (08:01)
[2017-05-23] MEDS: ASPIRIN 81 MG PO SCH (08:01)
[2017-05-23] MEDS: FOLIC ACID 1 MG TAB PO SCH (08:01)
[2017-05-23] MEDS: SERTRALINE 50 MG TAB PO SCH (08:02)
[2017-05-23] MEDS: CALCIUM CARB-VIT D 500MG-200UN 1 EACH TAB PO SCH (08:02)
[2017-05-23] MEDS: CHOLECALCIFEROL 1,000 UNIT TAB PO SCH (08:02)
[2017-05-23 08:17] VITALS: BP 148/84; PULSE 97; RESP 18
--- NOTE | 2017-05-23 08:45 | P.PN ---
Progress Note - Text The patient is a 72-year-old female whom I am following on the psychiatric floor because of her underlying medical conditions which include hypertension. Prior to patient's admission we had decreased her blood pressure medications as her outpatient blood pressures were running in the lower 100. We have gradually increased her medications and her blood pressures are still running from 141 up to 166 systolic and anywhere from 72-102 diastolic over the last 24 hours. Otherwise from the medical standpoint she appears to be doing well with a temperature of 97.6 pulse of 80 and respirations 16. At this time we will increase her lisinopril back to her previous dose of 20 mg daily. Continue her amlodipine and continue to monitor her blood pressures as is being done. Upon discharge would continue her blood pressure medications with amlodipine 10 mg at at bedtime and lisinopril 20 mg in the morning. This can be followed as an outpatient. Please call if any questions concerns or problems.
[2017-05-23] MEDS: LISINOPRIL 20 MG TAB PO SCH ×2 (09:19→10:08)
--- NOTE | 2017-05-23 09:43 | P.DS ---
Providers Date of admission: 05/18/17 16:07 Expected date of discharge: 05/23/17 Attending physician: Carlos Alberto Villalobos Consults: 05/18/17 16:13 Consult Physician Routine Consulting Provider: Carlos Alberto Guerra Consult Reason/Comments: H and P and medical management Do you want consulting provider notified?: Yes Primary care physician: Carlos Alberto Guerra - Discharge Diagnosis(es) (1) Bipolar disorder Current Visit: Yes Status: Acute Priority: High (2) ADHD (attention deficit hyperactivity disorder), inattentive type Current Visit: Yes Status: Acute Priority: Medium (3) Generalized anxiety disorder Current Visit: Yes Status: Acute Priority: Medium Hospital Course: Brief summary of admission note: This patient is a 72-year-old female who is known to my outpatient practice who was admitted to the mental health unit after an overdose with 17, 5 mg Ambien tablets. The patient felt overwhelmed with recent stressors and had difficulty with sleep the previous night and impulsively took the pills. She reported no clear intent of killing herself but does admit that this was a reckless maneuver that could have resulted in great harm. The patient has a history of one manic episode with psychosis. Otherwise she has had major depressive disorder for numerous years. She has struggle with generalized anxiety disorder history of PTSD and ADHD symptoms. For full details please refer to the psychiatric evaluation now. Summary of hospital course: The patient was admitted to the mental health unit once medically cleared. She was seen by her primary care physician several times during this stay. She was initially on one-to-one supervision for gait instability subsequent to the overdose. That quickly cleared and she no longer required one-to-one supervision. We reviewed her presenting symptoms and medication options. We continued her on Zoloft which was a recent change Lamictal was restarted and Seroquel was titrated. The patient participated in group she demonstrated no agitated behavior. I was able to speak with her via phone. The patient reported a progressive improvement of symptoms while here. She is feeling more hopeful and is able to describe plans she has for addressing stressors in her life and becoming more productive at home. She has been experiencing some diarrhea here on the mental health unit. It's unclear if this is an infectious etiology reaction to medication or diet related. Her primary care physician has been monitoring her blood pressure she was continued on the Center prole and Norvasc. Lasix was not prescribed. Mental status exam: The patient is alert she is dressed in her own clothing eye contact is appropriate. Speech is fluent spontaneous nonpressured. She is ambulating with the use of to ski poles. She reports her mood is better she is endorsing no hopelessness thinking no suicidal ideation intent or plan. She reports no homicidal ideation. She reports no racing thoughts. There is no evidence of tangential thinking loose associations or flight of ideas. She does not appear hypomanic or manic. She is endorsing no auditory or visual hallucinations or any specific delusions. There is no observed evidence of psychosis. She remains oriented to person place and date. She demonstrates no agitated behavior no verbal or physical aggressiveness. She demonstrates no abnormal involuntary movements. Insight and judgment have sufficiently improved. Affect is appropriately expressive and appears euthymic and congruent to reported mood. Impressions 1. Bipolar disorder most recent depressed, generalized anxiety disorder, history of PTSD, ADHD inattentive type II. Cluster B traits 3. Asthma, GERD, hypertension, thyroid disease history of migraine headaches bilateral hip pathology Plan: The patient will be discharged from mental health unit today to return home with her following a support meeting here on the mental health unit. She will continue on Lamictal 50 mg at bedtime, Seroquel 75 mg at bedtime , Zoloft 50 mg daily. She will follow with her primary care physician regarding her antihypertensives. There is no imminent safety risk the patient is appropriate for transition back to outpatient care. [facility]. Patient Condition at Discharge: Stable Plan - Discharge Summary New Discharge Prescriptions: New lamoTRIgine [LaMICtal] 50 mg PO HS #60 tab QUEtiapine [SEROquel] 75 mg PO HS #90 tab Sertraline [Zoloft] 50 mg PO DAILY tab Continue Aspirin 81 mg PO DAILY Levothyroxine Sodium [Synthroid] 50 mcg PO SUMOWETHFR Multivitamins, Thera [Multivitamin (formulary)] 1 tab PO DAILY Calcium Carbonate/Vitamin D3 [Calcium 600-Vit D3 400 Tablet] 1 tab PO DAILY Lisinopril [Zestril] 20 mg PO DAILY Latanoprost Ophth [Xalatan 0.005%] 1 drops BOTH EYES HS Folic Acid 0.4 mg PO DAILY Cholecalciferol [Vitamin D3] 1,000 unit PO DAILY amLODIPine BESYLATE [Norvasc] 10 mg PO HS Hydrocortisone Cream [Hydrocortisone 2.5% Cream] 1 applic TOPICAL BID PRN PRN Reason: Rash Methylphenidate HCl [Concerta] 18 mg PO DAILY L.acidoph,Paracasei, B.lactis [Probiotic] 1 cap PO DAILY Discontinued lamoTRIgine [LaMICtal] 150 mg PO DAILY Potassium Chloride ER [K-Dur 10] 10 meq PO DAILY QUEtiapine [SEROquel] 25 mg PO HS Vortioxetine Hydrobromide [Trintellix] 5 mg PO DAILY Sertraline HCl [Zoloft] 50 mg PO DAILY Discharge Medication List Aspirin 81 mg PO DAILY 12/02/14 [History] Calcium Carbonate/Vitamin D3 [Calcium 600-Vit D3 400 Tablet] 1 tab PO DAILY [History] Levothyroxine Sodium [Synthroid] 50 mcg PO SUMOWETHFR 12/02/14 [History] Multivitamins, Thera [Multivitamin (formulary)] 1 tab PO DAILY 12/02/14 [History ] Lisinopril [Zestril] 20 mg PO DAILY 10/14/15 [History] Cholecalciferol [Vitamin D3] 1,000 unit PO DAILY 05/18/17 [History] Folic Acid 0.4 mg PO DAILY 05/18/17 [History] Hydrocortisone Cream [Hydrocortisone 2.5% Cream] 1 applic TOPICAL BID PRN [History] L.acidoph,Paracasei, B.lactis [Probiotic] 1 cap PO DAILY 05/18/17 [History] Latanoprost Ophth [Xalatan 0.005%] 1 drops BOTH EYES HS 05/18/17 [History] Methylphenidate HCl [Concerta] 18 mg PO DAILY 05/18/17 [History] amLODIPine BESYLATE [Norvasc] 10 mg PO HS 05/18/17 [History] QUEtiapine [SEROquel] 75 mg PO HS #90 tab 05/23/17 [Rx] Sertraline [Zoloft] 50 mg PO DAILY tab 05/23/17 [Rx] lamoTRIgine [LaMICtal] 50 mg PO HS #60 tab 05/23/17 [Rx] Follow up Appointment(s)/Referral(s): Carlos Alberto Guerra MD [Primary Care Provider] - 1-2 days
[2017-05-23] MEDS ORDERED: LOPERAMIDE 2 MG CAP PO ONE (09:50)
[2017-05-23] MEDS ORDERED: LISINOPRIL 10 MG TAB PO STA (09:51)
[2017-05-24] MEDS ORDERED: LISINOPRIL 20 MG TAB PO SCH (09:00)
== END 2017-05-23 11:20 | disposition home or self-care (01) | DRG 885 ==
LOC: EC 11:35 → 3MHU 16:07
PROVIDERS: ADMIT Psychiatry & Neurology Psychiatry; ATTEND Psychiatry & Neurology Psychiatry
DX: F31.9 Bipolar disorder, unspecified (principal); I10 Essential (primary) hypertension; K21.9 Gastro-esophageal reflux disease without esophagitis; E03.9 Hypothyroidism, unspecified; J45.909 Unspecified asthma, uncomplicated; R53.1 Weakness; T42.6X1A Poisoning by other antiepileptic and sedative-hypnotic drugs, accidental (unintentional), initial encounter; F90.0 Attention-deficit hyperactivity disorder, predominantly inattentive type; F41.1 Generalized anxiety disorder; R26.9 Unspecified abnormalities of gait and mobility; F43.10 Post-traumatic stress disorder, unspecified; R19.7 Diarrhea, unspecified; R45.1 Restlessness and agitation; M19.90 Unspecified osteoarthritis, unspecified site; Z79.899 Other long term (current) drug therapy; Z91.5 Personal history of self-harm; Z82.49 Family history of ischemic heart disease and other diseases of the circulatory system; Z98.84 Bariatric surgery status; Z80.52 Family history of malignant neoplasm of bladder; Z79.82 Long term (current) use of aspirin; Z90.89 Acquired absence of other organs; Z87.891 Personal history of nicotine dependence; Z98.41 Cataract extraction status, right eye; Z98.42 Cataract extraction status, left eye; Z96.653 Presence of artificial knee joint, bilateral; Z96.643 Presence of artificial hip joint, bilateral; W19.XXXA Unspecified fall, initial encounter
CPT/HCPCS: 36415; 71010; 80048; 80053; 80061; 80306; 80320; 82075; 82150; 82550; 82553; 83036; 83520; 83690; 84443; 85025; 93005; 96360; 96361; 99285

== ENCOUNTER 2017-05-24 08:25 | Inpatient (IN) | payer MEDICARE ==
[2017-05-24] MEDS ORDERED: SODIUM CHLORIDE 0.9% 500 ML IV STA (08:33)
[2017-05-24] MEDS ORDERED: NALOXONE 0.4 MG/ML 1 ML VIAL IV STA (08:33)
--- NOTE | 2017-05-24 08:40 | ED ---
General Adult HPI - General Chief complaint: Overdose Stated complaint: overdose Time Seen by Provider: 05/24/17 08:25 Source: EMS, RN notes reviewed Mode of arrival: EMS Limitations: altered mental status - History of Present Illness Initial comments: This is a 72-year-old female who presents emergency Department by ambulance. Patient was brought in unresponsive. According to EMS patient was found unresponsive by her thinks she may have taken too many Seroquel because she has done this in the past. Per EMS she was maintaining her airway and oxygenating okay on the way in however she remained unresponsive for the whole trip. Patient's told paramedics that she was acting normal yesterday and had no complaints. Patient is unable to give us any history is yet to arrive. - Related Data Home Medications Medication Instructions Recorded Confirmed Aspirin 81 mg PO DAILY 12/02/14 05/24/17 Calcium Carbonate/Vitamin D3 1 tab PO DAILY 12/02/14 05/24/17 [Calcium 600-Vit D3 400 Tablet] Levothyroxine Sodium [Synthroid] 50 mcg PO SUMOWETHFR 12/02/14 05/24/17 Multivitamins, Thera [Multivitamin 1 tab PO DAILY 12/02/14 05/24/17 (formulary)] Cholecalciferol [Vitamin D3] 1,000 unit PO DAILY 05/18/17 05/24/17 Folic Acid 0.4 mg PO DAILY 05/18/17 05/24/17 Hydrocortisone Cream 1 applic TOPICAL BID PRN 05/18/17 05/24/17 [Hydrocortisone 2.5% Cream] L.acidoph,Paracasei, B.lactis 1 cap PO DAILY 05/18/17 05/24/17 [Probiotic] Latanoprost Ophth [Xalatan 0.005%] 1 drops BOTH EYES HS 05/18/17 05/24/17 Methylphenidate HCl [Concerta] 18 mg PO DAILY 05/18/17 05/24/17 amLODIPine BESYLATE [Norvasc] 10 mg PO HS 05/18/17 05/24/17 Previous Rx's Medication Instructions Recorded Lisinopril [Zestril] 20 mg PO DAILY #30 tab 05/23/17 QUEtiapine [SEROquel] 75 mg PO HS #90 tab 05/23/17 Sertraline [Zoloft] 50 mg PO DAILY tab 05/23/17 lamoTRIgine [LaMICtal] 50 mg PO HS #60 tab 05/23/17 Allergies Allergy/AdvReac Type Severity Reaction Status Date / Time OPIATES AdvReac Unknown AGITATION Uncoded 05/24/17 08:33 Review of Systems ROS Statement: Those systems with pertinent positive or pertinent negative responses have been documented in the HPI. ROS Other: All systems not noted in ROS Statement are negative. Past Medical History Past Medical History: Asthma, GERD/Reflux, Hypertension, Skin Disorder, Thyroid Disorder Additional Past Medical History / Comment(s): PAST HX OF MIGRAINES, HX OF GERD- ( NO PROBLEM NOW), HYPOTHYROID. STATES SHE HAS LITTLE BUMPS ON SKIN THAT ITCH- SHE SEEN HER DRVeronica-IVETTE VALLE., STATES SHE HAD RECTAL PROLAPSE. History of Any Multi-Drug Resistant Organisms: None Reported Past Surgical History: Bariatric Surgery, Joint Replacement, Orthopedic Surgery Additional Past Surgical History / Comment(s): PANNICULECTOMY, LAP BAND(2003), RIGHT TOTAL HIP X2, LEFT TOTAL HIP X2, LLOYD TOTAL KNEES, LLOYD CATARACTS, RIGHT THUMB, D&C'S. Past Anesthesia/Blood Transfusion Reactions: Motion Sickness, Postoperative Nausea & Vomiting (PONV) Past Psychological History: ADD/ADHD, Anxiety, Depression Smoking Status: Former smoker Past Alcohol Use History: Occasional Past Drug Use History: None Reported - Past Family History Mother History Unknown: Yes Family Medical History: Cancer Additional Family Medical History / Comment(s): BLADDER CA- AT 70 YEARS OLD. Father History Unknown: Yes Family Medical History: Coronary Artery Disease (CAD), Myocardial Infarction ([place] ) Additional Family Medical History / Comment(s): AT 60 YRS OLD General Exam - General Exam Comments Initial Comments: GENERAL: Patient is well-developed and well-nourished. Patient is nontoxic and well- hydrated and is in no acute distress. Patient is unresponsive to verbal and does move and occasionally open her eyes to painful stimuli ENT: Neck is soft and supple. No significant lymphadenopathy is noted. Oropharynx is clear. Moist mucous membranes. EYES: The sclera were anicteric and conjunctiva were pink and moist. Extraocular movements were intact and pupils were equal round and reactive to light. Eyelids were unremarkable. PULMONARY: Unlabored respirations. Good breath sounds bilaterally. No audible rales rhonchi or wheezing was noted. CARDIOVASCULAR: There is a regular rate and rhythm without any murmurs gallops or rubs. ABDOMEN: Soft and nontender with normal bowel sounds. No palpable organomegaly was noted. There is no palpable pulsatile mass. SKIN: Skin is clear with no lesions or rashes and otherwise unremarkable. NEUROLOGIC: Patient is unresponsive she does grimace and occasionally try to pull your hand away with painful stimuli MUSCULOSKELETAL: Normal extremities with adequate strength and full range of motion. LYMPHATICS: No significant lymphadenopathy is noted PSYCHIATRIC: Normal psychiatric evaluation. Limitations: altered mental status Course Vital Signs 05/24/17 05/24/17 05/24/17 08:27 08:30 08:41 Temperature 96.8 F L Pulse Rate 112 H 110 H 112 H Respiratory 18 14 Rate Blood Pressure 111/60 96/54 O2 Sat by Pulse 96 98 96 Oximetry 05/24/17 05/24/17 05/24/17 09:04 09:20 10:00 Temperature Pulse Rate 111 H 98 86 Respiratory 16 18 18 Rate Blood Pressure 144/64 101/53 85/55 O2 Sat by Pulse 99 99 99 Oximetry 05/24/17 10:49 Temperature Pulse Rate 90 Respiratory 18 Rate Blood Pressure 78/57 O2 Sat by Pulse 99 Oximetry Medical Decision Making - Medical Decision Making EKG shows a sinus tachycardia at 113 bpm NE interval is on a 56 QRS is 76 QT interval 358 QTC is 491. Patient's EKG shows no ST segment elevation or depression or T-wave abdomen is noted CT of the brain shows no acute normalities. I spoke with Dr. Guerra he agreed to admit the patient. I spoke with Dr. Judd he states he'll come down and see the patient but he believes that the patient can be admitted to the floor. I wrote admitting orders. I reevaluated the patient on multiple occasions and she remains unresponsive though she does withdraw to painful stimuli. Her vitals are stable. - Lab Data Result diagrams: 05/24/17 08:41 05/24/17 08:41 Lab Results 05/24/17 05/24/17 05/24/17 Range/Units 08:41 08:41 08:41 WBC 7.4 (3.8-10.6) k/uL RBC 4.18 (3.80-5.40) m/uL Hgb 12.8 (11.4-16.0) gm/dL Hct 38.7 (34.0-46.0) % MCV 92.7 (80.0-100.0) fL MCH 30.6 (25.0-35.0) pg MCHC 33.0 (31.0-37.0) g/dL RDW 13.1 (11.5-15.5) % Plt Count 186 (150-450) k/uL Neutrophils % 71 % Lymphocytes % 20 % Monocytes % 4 % Eosinophils % 4 % Basophils % 0 % Neutrophils # 5.2 (1.3-7.7) k/uL Lymphocytes # 1.5 (1.0-4.8) k/uL Monocytes # 0.3 (0-1.0) k/uL Eosinophils # 0.3 (0-0.7) k/uL Basophils # 0.0 (0-0.2) k/uL Sodium 139 (137-145) mmol/L Potassium 3.4 L (3.5-5.1) mmol/L Chloride 106 (98-107) mmol/L Carbon Dioxide 21 L (22-30) mmol/L Anion Gap 12 mmol/L BUN 15 (7-17) mg/dL Creatinine 0.84 (0.52-1.04) mg/dL Est GFR (MDRD) Af Amer >60 (>60 ml/min/1.73 sqM) Est GFR (MDRD) Non-Af >60 (>60 ml/min/1.73 sqM) Glucose 156 H (74-99) mg/dL Plasma Lactic Acid Ramez (0.7-2.0) mmol/L Calcium 9.8 (8.4-10.2) mg/dL Total Bilirubin 0.5 (0.2-1.3) mg/dL AST 23 (14-36) U/L ALT 33 (9-52) U/L Alkaline Phosphatase 54 (38-126) U/L Total Creatine Kinase 117 (30-135) U/L CK-MB (CK-2) 2.9 H* (0.0-2.4) ng/mL CK-MB (CK-2) Rel Index 2.5 Troponin I 0.082 H* (0.000-0.034) ng/mL Total Protein 6.7 (6.3-8.2) g/dL Albumin 3.6 (3.5-5.0) g/dL Salicylates <1.0 mg/dL Urine Opiates Screen (NotDetected) Ur Oxycodone Screen (NotDetected) Urine Methadone Screen (NotDetected) Ur Propoxyphene Screen (NotDetected) Acetaminophen <10.0 ug/mL Ur Barbiturates Screen (NotDetected) U Tricyclic Antidepress (NotDetected) Ur Phencyclidine Scrn (NotDetected) Ur Amphetamines Screen (NotDetected) U Methamphetamines Scrn (NotDetected) U Benzodiazepines Scrn (NotDetected) Urine Cocaine Screen (NotDetected) U Marijuana (THC) Screen (NotDetected) Serum Alcohol <10 mg/dL 05/24/17 05/24/17 Range/Units 08:41 08:41 WBC (3.8-10.6) k/uL RBC (3.80-5.40) m/uL Hgb (11.4-16.0) gm/dL Hct (34.0-46.0) % MCV (80.0-100.0) fL MCH (25.0-35.0) pg MCHC (31.0-37.0) g/dL RDW (11.5-15.5) % Plt Count (150-450) k/uL Neutrophils % % Lymphocytes % % Monocytes % % Eosinophils % % Basophils % % Neutrophils # (1.3-7.7) k/uL Lymphocytes # (1.0-4.8) k/uL Monocytes # (0-1.0) k/uL Eosinophils # (0-0.7) k/uL Basophils # (0-0.2) k/uL Sodium (137-145) mmol/L Potassium (3.5-5.1) mmol/L Chloride (98-107) mmol/L Carbon Dioxide (22-30) mmol/L Anion Gap mmol/L BUN (7-17) mg/dL Creatinine (0.52-1.04) mg/dL Est GFR (MDRD) Af Amer (>60 ml/min/1.73 sqM) Est GFR (MDRD) Non-Af (>60 ml/min/1.73 sqM) Glucose (74-99) mg/dL Plasma Lactic Acid Ramez 1.5 (0.7-2.0) mmol/L Calcium (8.4-10.2) mg/dL Total Bilirubin (0.2-1.3) mg/dL AST (14-36) U/L ALT (9-52) U/L Alkaline Phosphatase (38-126) U/L Total Creatine Kinase (30-135) U/L CK-MB (CK-2) (0.0-2.4) ng/mL CK-MB (CK-2) Rel Index Troponin I (0.000-0.034) ng/mL Total Protein (6.3-8.2) g/dL Albumin (3.5-5.0) g/dL Salicylates mg/dL Urine Opiates Screen Not Detected (NotDetected) Ur Oxycodone Screen Not Detected (NotDetected) Urine Methadone Screen Not Detected (NotDetected) Ur Propoxyphene Screen Not Detected (NotDetected) Acetaminophen ug/mL Ur Barbiturates Screen Not Detected (NotDetected) U Tricyclic Antidepress Detected H (NotDetected) Ur Phencyclidine Scrn Not Detected (NotDetected) Ur Amphetamines Screen Not Detected (NotDetected) U Methamphetamines Scrn Not Detected (NotDetected) U Benzodiazepines Scrn Not Detected (NotDetected) Urine Cocaine Screen Not Detected (NotDetected) U Marijuana (THC) Screen Not Detected (NotDetected) Serum Alcohol mg/dL Critical Care Time Critical Care Time: Yes Total Critical Care Time: 35 Disposition Clinical Impression: Depression, Overdose Disposition: ADMITTED IP TO THIS HOSP Referrals: Carlos Alberto Guerra MD [Primary Care Provider] - 1-2 days Time of Disposition: 11:02
--- NOTE | 2017-05-24 09:00 | XR ---
EXAMINATION TYPE: XR chest 1V portable DATE OF EXAM: 05/24/2017 COMPARISON: 05/18/2017 HISTORY: Unresponsive. TECHNIQUE: Single frontal view of the chest is obtained. FINDINGS: There is no focal air space opacity, pleural effusion, or pneumothorax seen. There is inte rval development of left basilar subsegmental atelectasis. Chronic elevation of the right hemidiaphra gm. The cardiac silhouette size is within normal limits. The osseous structures are intact. Extens dori degenerative changes of the right glenohumeral joint are seen. Surgical clips are again noted marisel r the gastroesophageal junction. IMPRESSION: New minimal left basilar subsegmental atelectasis. No focal consolidation, pneumothorax or pleural effusion.
[2017-05-24 09:03] LABS: Basophils % (A) 0 %; CH 30.6; CHCM 33.1; Eosinophils # (A) 0.3 k/uL (0-0.7); Eosinophils % (A) 4 %; HCT 38.7 % (34.0-46.0); HDW 2.35; HGB 12.8 gm/dL (11.4-16.0); Luc # (Auto) 0.09; Luc % (Auto) 1; Lymphocytes # (A) 1.5 k/uL (1.0-4.8); Lymphocytes % (A) 20 %; MCH 30.6 pg (25.0-35.0); MCV 92.7 fL (80.0-100.0); Mean Platelet Volume 8.2; Monocytes # (A) 0.3 k/uL (0-1.0); Monocytes % (A) 4 %; Neutrophils # (A) 5.2 k/uL (1.3-7.7); Neutrophils % (A) 71 %; RBC 4.18 m/uL (3.80-5.40); RDW 13.1 % (11.5-15.5); WBC 7.4 k/uL (3.8-10.6); WBC (Perox) 8.22
--- NOTE | 2017-05-24 09:16 | CT ---
EXAMINATION TYPE: CT brain wo con DATE OF EXAM: 05/24/2017 COMPARISON: 12/19/2014 INDICATION: Patient poor historian. Patient unresponsive during exam. Possible overdose. DLP: 718.9 mGycm, Automated exposure control for dose reduction was used. CONTRAST: None CT of the brain is performed utilizing 3 mm thick sections through the posterior fossa and 3 mm thick sections through the remaining calvarium. Study is performed within 24 hours of arrival to the hosp ital. No abnormal hyperdensity is present to suggest an acute intracranial hemorrhage. No mass lesion is evident. No acute infarcts are evident. Minimal periventricular white matter ischemic type changes may be pres ent. Ventricles and sulci are slightly prominent for the patient age. Paranasal sinuses and mastoid air cells within the [id number] are clear. IMPRESSIONS: 1. Mild age-related atrophy
[2017-05-24 09:18] LABS: ALT 33 U/L (9-52); AST 23 U/L (14-36); Acetaminophen <10.0 ug/mL; Alcohol <10 mg/dL; Alkaline Phosphatase 54 U/L (38-126); Anion Gap 12 mmol/L; Blood Urea Nitrogen 15 mg/dL (7-17); Calcium 9.8 mg/dL (8.4-10.2); Carbon Dioxide 21 mmol/L (22-30); Chloride 106 mmol/L (98-107); Glucose 156 mg/dL (74-99); Non-African American GFR(MDRD) >60 (>60 ml/min/1.73 sqM); Potassium 3.4 mmol/L (3.5-5.1); Salicylate <1.0 mg/dL; Sodium 139 mmol/L (137-145); Total Bilirubin 0.5 mg/dL (0.2-1.3); Total Protein 6.7 g/dL (6.3-8.2)
[2017-05-24 09:45] LABS: Creatine Kinase MB 2.9 ng/mL (0.0-2.4); Troponin I 0.082 ng/mL (0.000-0.034)
[2017-05-24] MEDS ORDERED: SODIUM CHLORIDE 0.9% 1,000 ML IV ONE (11:10)
--- NOTE | 2017-05-24 11:45 | P.CNPUL ---
History of Present Illness Consult date: 05/24/17 Reason for consult: other Chief complaint: Accidental drug overdose History of present illness: Consult dated 05/24/2017 72-year-old female brought in by EMS. The patient apparently was found to be poorly responsive her unresponsive. The thinks that the ratio may have taken too many Seroquel dose at nighttime. She usually takes one but may have woken up and taken another. The patient's hemodynamically stable. Saturations are fine. She is arousable but falls back into a deep sleep. I was called by the ER doctor to ask my opinion about placement. After evaluating her, I think she can go to the 6 selective unit safely. Head of bed should be elevated. She should not be given a continue to drink at this time. Obviously no narcotics that sedatives hypnotics or tranquilizer should be given. Should she deteriorate, I do know about her we can certainly move her at that time. Review of Systems ROS unobtainable: due to mental status Past Medical History Past Medical History: Asthma, GERD/Reflux, Hypertension, Skin Disorder, Thyroid Disorder Additional Past Medical History / Comment(s): PAST HX OF MIGRAINES, HX OF GERD- ( NO PROBLEM NOW), HYPOTHYROID. STATES SHE HAS LITTLE BUMPS ON SKIN THAT ITCH- SHE SEEN HER DRVeronica-IVETTE VALLE., STATES SHE HAD RECTAL PROLAPSE. History of Any Multi-Drug Resistant Organisms: None Reported Past Surgical History: Bariatric Surgery, Joint Replacement, Orthopedic Surgery Additional Past Surgical History / Comment(s): PANNICULECTOMY, LAP BAND(2003), RIGHT TOTAL HIP X2, LEFT TOTAL HIP X2, LLOYD TOTAL KNEES, LLOYD CATARACTS, RIGHT THUMB, D&C'S. Past Anesthesia/Blood Transfusion Reactions: Motion Sickness, Postoperative Nausea & Vomiting (PONV) Past Psychological History: ADD/ADHD, Anxiety, Depression Smoking Status: Former smoker Past Alcohol Use History: Occasional Past Drug Use History: None Reported - Past Family History Mother History Unknown: Yes Family Medical History: Cancer Additional Family Medical History / Comment(s): BLADDER CA- AT 70 YEARS OLD. Father History Unknown: Yes Family Medical History: Coronary Artery Disease (CAD), Myocardial Infarction ([place] ) Additional Family Medical History / Comment(s): AT 60 YRS OLD Medications and Allergies Home Medications Medication Instructions Recorded Confirmed Type Aspirin 81 mg PO DAILY 12/02/14 05/24/17 History Calcium Carbonate/Vitamin D3 1 tab PO DAILY 12/02/14 05/24/17 History [Calcium 600-Vit D3 400 Tablet] Levothyroxine Sodium [Synthroid] 50 mcg PO SUMOWETHFR 12/02/14 05/24/17 History Multivitamins, Thera [Multivitamin 1 tab PO DAILY 12/02/14 05/24/17 History (formulary)] Cholecalciferol [Vitamin D3] 1,000 unit PO DAILY 05/18/17 05/24/17 History Folic Acid 0.4 mg PO DAILY 05/18/17 05/24/17 History Hydrocortisone Cream 1 applic TOPICAL BID PRN 05/18/17 05/24/17 History [Hydrocortisone 2.5% Cream] L.acidoph,Paracasei, B.lactis 1 cap PO DAILY 05/18/17 05/24/17 History [Probiotic] Latanoprost Ophth [Xalatan 0.005%] 1 drops BOTH EYES HS 05/18/17 05/24/17 History Methylphenidate HCl [Concerta] 18 mg PO DAILY 05/18/17 05/24/17 History amLODIPine BESYLATE [Norvasc] 10 mg PO HS 05/18/17 05/24/17 History Lisinopril [Zestril] 20 mg PO DAILY #30 tab 05/23/17 05/24/17 Rx QUEtiapine [SEROquel] 75 mg PO HS #90 tab 05/23/17 05/24/17 Rx Sertraline [Zoloft] 50 mg PO DAILY tab 05/23/17 05/24/17 Rx lamoTRIgine [LaMICtal] 50 mg PO HS #60 tab 05/23/17 05/24/17 Rx Allergies Allergy/AdvReac Type Severity Reaction Status Date / Time OPIATES AdvReac Unknown AGITATION Uncoded 05/24/17 08:33 Physical Exam Osteopathic Statement: *. No significant issues noted on an osteopathic structural exam other than those noted in the History and Physical/Consult. Vitals: Vital Signs Temp Pulse Resp BP Pulse Ox 05/24/17 11:00 91 16 92/56 99 05/24/17 10:49 90 18 78/57 99 05/24/17 10:00 86 18 85/55 99 05/24/17 09:20 98 18 101/53 99 05/24/17 09:04 111 H 16 144/64 99 05/24/17 08:41 112 H 14 96/54 96 05/24/17 08:30 110 H 98 05/24/17 08:27 96.8 F L 112 H 18 111/60 96 Intake and Output 05/23/17 05/24/17 05/24/17 22:59 06:59 14:59 Other: Weight 68.901 kg Patient Weight 05/25/17 06:59 Weight 68.901 kg No acute distress, very sleepy. Does arouse but falls back to sleep. HEENT examination is grossly unremarkable. Neck supple. Full range of motion. No adenopathy. Cardiovascular examination reveals regular rhythm rate. S1-S2 normal. Lungs clear breath sounds equal. Abdomen soft bowel sounds are heard. Extremities are intact. No cyanosis clubbing or edema. Skin without rash. Neurologic examination cannot be performed. Results - Laboratory Findings CBC and BMP: 05/24/17 08:41 05/24/17 08:41 Abnormal lab findings: Abnormal Labs 05/24/17 05/24/17 05/24/17 08:41 08:41 08:41 Potassium 3.4 L Carbon Dioxide 21 L Glucose 156 H CK-MB (CK-2) 2.9 H* Troponin I 0.082 H* U Tricyclic Antidepress Detected H - Diagnostic Findings Chest x-ray: image reviewed (Labs x-rays a medications are reviewed.) Assessment and Plan (1) Hypothyroidism Current Visit: Yes Status: Acute Code(s): E03.9 - HYPOTHYROIDISM, UNSPECIFIED SNOMED Code(s): 59148645 (2) Asthma Current Visit: Yes Status: Acute Code(s): J45.909 - UNSPECIFIED ASTHMA, UNCOMPLICATED SNOMED Code(s): 573464533 (3) Hypertension Current Visit: Yes Status: Acute Code(s): I10 - ESSENTIAL (PRIMARY) HYPERTENSION SNOMED Code(s): 81128629 (4) GERD (gastroesophageal reflux disease) Current Visit: Yes Status: Acute Code(s): K21.9 - GASTRO-ESOPHAGEAL REFLUX DISEASE WITHOUT ESOPHAGITIS SNOMED Code(s): 006795154 (5) Depression Current Visit: Yes Status: Acute Code(s): F32.9 - MAJOR DEPRESSIVE DISORDER , SINGLE EPISODE, UNSPECIFIED SNOMED Code(s): 90858628 (6) Drug overdose Current Visit: Yes Status: Acute Code(s): T50.901A - POISONING BY UNSP DRUG/ MEDS/BIOL SUBST, ACCIDENTAL, INIT SNOMED Code(s): 15620488 (7) ADHD (attention deficit hyperactivity disorder), inattentive type Current Visit: No Status: Acute Priority: Medium Code(s): F90.0 - ATTN- DEFCT HYPERACTIVITY DISORDER, PREDOM INATTENTIVE TYPE SNOMED Code(s): 68525179 (8) Bipolar 1 disorder, depressed Current Visit: No Status: Acute Code(s): F31.9 - BIPOLAR DISORDER, UNSPECIFIED SNOMED Code(s): 54100615 (9) Generalized anxiety disorder Current Visit: No Status: Acute Priority: Medium Code(s): F41.1 - GENERALIZED ANXIETY DISORDER SNOMED Code(s): 42525173 Plan: Plan dated 05/24/2017 The patient still very sleepy. I believe she can be safely monitored on 6 floor. The patient should arouse as the medication were off. I review her medications make sure she is on nothing that would improve prolong the period of sedation. She should have aspiration precautions nothing to drink at this time. Head of bed elevated at all times. Time with Patient: Greater than 30
--- NOTE | 2017-05-24 17:48 | P.HPIM ---
History of Present Illness Chief complaint Mental status change with unresponsiveness History of present illness The patient is a 72-year-old female who was brought to the emergency room earlier this morning by ambulance. She herself is not able to give a good history but reviewing the records indicates that she was found by her this morning unresponsive and there was some concern that she may have taken more of her Seroquel during the night. Apparently EMS was called and brought her to the emergency room where she was at times unresponsive and at other times she would respond and then fall back to sleep. Patient does have a history of depression and actually was recently hospitalized here at [facility]. Past medical history Patient has had underlying history of bipolar disorder along with attention deficit disorder and anxiety. She has been having increased depression of late and apparently had an overdose of Ambien earlier. Other medical history includes mild intermittent asthma, hypothyroidism on replacement therapy and also history of benign monoclonal gammopathy for which she is followed by hematology. Also history of gastroesophageal reflux disease. Patient has had multiple problems with arthritis and arthritic surgeries which include both left and right hip surgeries with revisions in the early 1999. Also she has had a right knee surgery and previous thumb surgery. Other general surgery includes appendectomy back in 2011 and previous D&C and tubal ligations. She has also had previous laparoscopic banding. No history of myocardial infarction, diabetes or stroke. Home medications: Patient has had agitation reaction with opiates in the past. Medications include Lamictal 50 mg at at bedtime Amlodipine 10 mg at at bedtime Zoloft 50 mg daily Seroquel 75 mg at at bedtime Multiple vitamin daily Concerta 18 mg daily Lisinopril 20 mg daily Synthroid 50 g Sunday, Sunday, Sunday, and Sunday. Apparently on Saturdays and Tuesdays she takes 100 g. Xalatan 0.005% 1 drop in both eyes at at bedtime Hydrocortisone cortisone cream applied topically twice a day to affected areas Folic acid 0.4 mg daily Vitamin D 3000 units daily Calcium 600-vitamin D3 400-1 daily and Aspirin 81 mg daily. Review of systems The patient arouses enough and responds and denies any unusual headache or chest pain or shortness of breath. She denies any nausea or vomiting. Social history Patient lives locally with her . 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 No history of illicit substance use/ abuse. The patient is a former smoker. Occasional EtOH usage. Family history Positive for coronary artery disease. Physical examination: The patient is lying flat in bed and does not appear to be in any acute distress. Her voice though is slurred. Somewhat difficult to follow and understand. Vital signs reveal temperature 97.4 with a pulse of 94 and respirations 18. Blood pressure 134/79 and she is 97% saturated on room air. Head is atraumatic. Extraocular movements intact. Pupils are equal and reactive. Neck is supple. No carotid bruits or adenopathy or thyromegaly detected. Breast and pelvic examination is been deferred. Lungs are clear to auscultation and percussion. Heart tones were regular without murmurs or rubs. Abdomen is soft and nontender without organomegaly or tenderness. Extremities reveal no edema. Patient once again responds and her talk is somewhat slurred but she does respond to simple commands. No definite cranial nerve deficits. She is able to move all extremities and no focal weaknesses noted. Reflexes are generally diminished at this time. Laboratory White count 7.4 with a hemoglobin 12.8 and a platelet count of 186. Sodium 134 with potassium 3.4 and a CO2 content of 21. Random blood sugar was 156. Lactic acid level I.5. All liver function tests satisfactory. CPK was 117. Troponin though elevated 0.082. Toxicology was positive for tricyclic antidepressants. Chest x-ray revealed some minimal left basilar atelectasis but no focal consolidation or pleural effusion noted. computed tomography scan of the brain consistent with mild age-related atrophy. Impressions Altered mental status likely related to overdose of medication, Seroquel by history. Definite evidence for other processes such as CVA or hypotension or myocardial infarction or seizure. Past mental health history of manic depression with recent depressive exacerbation. Other past medical history as listed in the past medical and above. Mild hypokalemia. Plans Continue with IV hydration along with adding potassium in her IV. Follow-up blood tests in the morning. Continue to hold oral medications until her mental status improves and then we'll restart her medications for her hypertension. Consultation with psych services. Consultation has been also obtained from pulmonary medicine to evaluate in the emergency room. Please refer to Dr. Judd's note. Past Medical History Past Medical History: Asthma, GERD/Reflux, Hypertension, Osteoarthritis (OA), Thyroid Disorder Additional Past Medical History / Comment(s): Insomnia, past migraines, sinus problems at times, hypothyroid, arthritis-back pain, sciatica, benign monoclonal gammopathy followed by hematology. History of Any Multi-Drug Resistant Organisms: None Reported Past Surgical History: Adenoidectomy, Appendectomy, Bariatric Surgery, Joint Replacement, Orthopedic Surgery, Tonsillectomy, Tubal Ligation Additional Past Surgical History / Comment(s): 2003 lap band, panniculectomy, R hip ORIF/total arthroplasty, L hip arthroplasty x 2, r knee ACL repair and total arthroplasty, R thumb sx, D&Cs, EGDs/colonoscopies, R breast benign bx. Past Anesthesia/Blood Transfusion Reactions: Motion Sickness, Postoperative Nausea & Vomiting (PONV) Smoking Status: Former smoker - Past Family History Mother History Unknown: Yes Family Medical History: Cancer Additional Family Medical History / Comment(s): BLADDER CA- AT 70 YEARS OLD. Father History Unknown: Yes Family Medical History: Coronary Artery Disease (CAD), Myocardial Infarction (SC ) Additional Family Medical History / Comment(s): AT 60 YRS OLD Medications and Allergies Home Medications Medication Instructions Recorded Confirmed Type Aspirin 81 mg PO DAILY 12/02/14 05/24/17 History Calcium Carbonate/Vitamin D3 1 tab PO DAILY 12/02/14 05/24/17 History [Calcium 600-Vit D3 400 Tablet] Levothyroxine Sodium [Synthroid] 50 mcg PO SUMOWETHFR 12/02/14 05/24/17 History Multivitamins, Thera [Multivitamin 1 tab PO DAILY 12/02/14 05/24/17 History (formulary)] Cholecalciferol [Vitamin D3] 1,000 unit PO DAILY 05/18/17 05/24/17 History Folic Acid 0.4 mg PO DAILY 05/18/17 05/24/17 History Hydrocortisone Cream 1 applic TOPICAL BID PRN 05/18/17 05/24/17 History [Hydrocortisone 2.5% Cream] L.acidoph,Paracasei, B.lactis 1 cap PO DAILY 05/18/17 05/24/17 History [Probiotic] Latanoprost Ophth [Xalatan 0.005%] 1 drops BOTH EYES HS 05/18/17 05/24/17 History Methylphenidate HCl [Concerta] 18 mg PO DAILY 05/18/17 05/24/17 History amLODIPine BESYLATE [Norvasc] 10 mg PO HS 05/18/17 05/24/17 History Lisinopril [Zestril] 20 mg PO DAILY #30 tab 05/23/17 05/24/17 Rx QUEtiapine [SEROquel] 75 mg PO HS #90 tab 05/23/17 05/24/17 Rx Sertraline [Zoloft] 50 mg PO DAILY tab 05/23/17 05/24/17 Rx lamoTRIgine [LaMICtal] 50 mg PO HS #60 tab 05/23/17 05/24/17 Rx Allergies Allergy/AdvReac Type Severity Reaction Status Date / Time OPIATES AdvReac Unknown AGITATION Uncoded 05/24/17 08:33 Physical Exam Vitals: Vital Signs Temp Pulse Pulse Resp BP BP Pulse Ox 05/24/17 16:00 97.4 F L 94 18 134/79 97 05/24/17 13:30 97.4 F L 101 H 16 117/74 98 05/24/17 12:45 97.1 F L 104 H 18 117/68 99 05/24/17 11:55 97 18 101/64 98 05/24/17 11:00 91 16 92/56 99 05/24/17 10:49 90 18 78/57 99 05/24/17 10:00 86 18 85/55 99 05/24/17 09:20 98 18 101/53 99 05/24/17 09:04 111 H 16 144/64 99 05/24/17 08:41 112 H 14 96/54 96 05/24/17 08:30 110 H 98 05/24/17 08:27 96.8 F L 112 H 18 111/60 96 Intake and Output 05/24/17 05/24/17 05/24/17 06:59 14:59 22:59 Other: Weight 68.901 kg Patient Weight 05/25/17 06:59 Weight 68.901 kg Results CBC & Chem 7: 05/24/17 08:41 05/24/17 08:41 Labs: Abnormal Lab Results - Last 24 Hours (Table) 05/24/17 05/24/17 05/24/17 Range/Units 08:41 08:41 08:41 Potassium 3.4 L (3.5-5.1) mmol/L Carbon Dioxide 21 L (22-30) mmol/L Glucose 156 H (74-99) mg/dL CK-MB (CK-2) 2.9 H* (0.0-2.4) ng/mL Troponin I 0.082 H* (0.000-0.034) ng/mL U Tricyclic Antidepress Detected H (NotDetected) Thrombosis Risk Factor Assmnt - Choose All That Apply Any of the Below Risk Factors Present?: Yes Each Factor Represents 1 point: Medical pt on bed rest, Obesity (BMI >25) Other Risk Factors: Yes Each Risk Factor Represents 2 Points: Age 61-74 years, Patient confined to bed Other congenital or acquired thrombophilia - If yes, enter type in comment: No Thrombosis Risk Factor Assessment Total Risk Factor Score: 6 Thrombosis Risk Factor Assessment Level: High Risk
[2017-05-24] MEDS ORDERED: 0.9% NACL WITH KCL 20 MEQ/L 1,000 ML IV ONE (18:00)
[2017-05-25 06:18] LABS: Basophils % (A) 0 %; CH 30.5; CHCM 33.3; Eosinophils # (A) 0.2 k/uL (0-0.7); Eosinophils % (A) 4 %; HCT 36.4 % (34.0-46.0); HDW 2.47; HGB 11.9 gm/dL (11.4-16.0); Luc # (Auto) 0.08; Luc % (Auto) 1; Lymphocytes # (A) 0.8 k/uL (1.0-4.8); Lymphocytes % (A) 12 %; MCH 30.3 pg (25.0-35.0); MCHC 32.8 g/dL (31.0-37.0); MCV 92.2 fL (80.0-100.0); Mean Platelet Volume 7.8; Monocytes # (A) 0.3 k/uL (0-1.0); Monocytes % (A) 4 %; Neutrophils # (A) 5.3 k/uL (1.3-7.7); Neutrophils % (A) 78 %; RBC 3.95 m/uL (3.80-5.40); RDW 12.3 % (11.5-15.5); WBC 6.7 k/uL (3.8-10.6); WBC (Perox) 7.08
[2017-05-25 06:38] LABS: ALT 40 U/L (9-52); AST 29 U/L (14-36); Alkaline Phosphatase 45 U/L (38-126); Anion Gap 9 mmol/L; Blood Urea Nitrogen 11 mg/dL (7-17); Calcium 8.7 mg/dL (8.4-10.2); Carbon Dioxide 17 mmol/L (22-30); Chloride 113 mmol/L (98-107); Glucose 77 mg/dL (74-99); Non-African American GFR(MDRD) >60 (>60 ml/min/1.73 sqM); Potassium 3.6 mmol/L (3.5-5.1); Sodium 139 mmol/L (137-145); Total Bilirubin 0.4 mg/dL (0.2-1.3); Total Protein 5.7 g/dL (6.3-8.2)
[2017-05-25] MEDS ORDERED: TRIAMCINOLONE 0.1% CREAM 80 GM TUBE TOPICAL PRN (07:54)
[2017-05-25] MEDS ORDERED: LEVOTHYROXINE 50 MCG TAB PO SCH (08:00)
--- NOTE | 2017-05-25 08:03 | P.PN ---
Progress Note - Text The patient is a 72-year-old female who was brought into the emergency room yesterday morning by ambulance. The patient was unresponsive and thought at that time to have taken more of her Seroquel during the night according to her 's report to the emergency room physician. The patient has been admitted to the cardiology unit here and has been placed on suicidal precautions. This morning she is much more alert. Tearful at times. She does seem to be alert and oriented. She does not complain of any chest pain or shortness of breath. No nausea or vomiting. In fact she wants to have some breakfast this morning. Last vital signs reveal temperature 97.6 with a pulse of 82 and respirations 18. Blood pressure is 140/111 and she is 97% saturated on room air. Lung and heart examination is clear and regular. Abdomen is nontender. No cranial nerve deficits and no focal weakness noted. No unusual edema. Laboratory values from this morning reveals her CBC to be unremarkable with a white count of 6.7 and a hemoglobin 11.9. Platelet count is 173. Sodium is 139 with potassium of 3.6 and a CO2 content of 17. Her blood sugar was 77. Liver function tests remain stable. Impressions and plans: Patient's neurological status appears to be overall improving. We will resume patient's diet and resume patient's medications for her blood pressure and thyroid and depression. Hitchcock will be removed. Continue suicidal precautions. Await for further psychiatric input.
[2017-05-25] MEDS ORDERED: SERTRALINE 50 MG TAB PO SCH (09:00)
[2017-05-25] MEDS ORDERED: ASPIRIN 81 MG PO SCH (09:00)
[2017-05-25] MEDS ORDERED: METHYLPHENIDATE HCL 18 MG PO SCH (09:00)
[2017-05-25] MEDS ORDERED: LISINOPRIL 20 MG TAB PO SCH (09:00)
--- NOTE | 2017-05-25 10:41 | P.PN ---
Subjective Progress Note Date: 05/25/17 Principal diagnosis: 72-year-old female brought in by EMS. The patient apparently was found to be poorly responsive her unresponsive. The thinks that the ratio may have taken too many Seroquel dose at nighttime. She usually takes one but may have woken up and taken another. The patient's hemodynamically stable. Saturations are fine. She is arousable but falls back into a deep sleep. I was called by the ER doctor to ask my opinion about placement. After evaluating her, I think she can go to the 6 selective unit safely. Head of bed should be elevated. She should not be given a continue to drink at this time. Obviously no narcotics that sedatives hypnotics or tranquilizer should be given. Should she deteriorate, I do know about her we can certainly move her at that time. The patient is seen again today 05/25/2017 in follow-up on the selective care unit. A sitter is at the bedside. The patient is more awake and alert today as compared to yesterday. She denies any intentional overdose. She states she took 2 Seroquel woke up in the middle of the night and could not go back to sleep and took a third Seroquel. She denies any shortness of breath, cough or congestion. She is maintaining good O2 saturations in the high 90s on room air. She's been afebrile. Hemodynamically stable. Objective - Vital Signs Vital signs: Vital Signs Temp 98.4 F 05/25/17 08:00 Pulse 92 05/25/17 08:00 Resp 16 05/25/17 08:00 BP 138/80 05/25/17 08:00 Pulse Ox 99 05/25/17 08:00 Intake & Output 05/24/17 05/25/17 05/25/17 18:59 06:59 18:59 Intake Total 150 100 Output Total 700 450 Balance -550 -350 Weight 68.901 kg 68.5 kg Intake: IV 150 Sodium Chloride 0.9% 1, 150 000 ml @ 75 mls/hr IV . [id number] ONE Rx#:[id number] Oral 100 Output: Urine 700 450 Uretheral (Hitchcock) 700 450 Other: Voiding Method Indwelling Catheter - Exam GENERAL EXAM: Alert, active, comfortable in no apparent distress. HEAD: Normocephalic. EYES: Normal reaction of pupils, equal size. NOSE: Clear with pink turbinates. THROAT: No erythema or exudates. NECK: No masses, no JVD. CHEST: No chest wall deformity. LUNGS: Equal air entry with no crackles, wheeze, rhonchi or dullness. CVS: S1 and S2 normal with no audible murmur, regular rhythm. ABDOMEN: No hepatosplenomegaly, normal bowel sounds, no guarding or rigidity. SPINE: No scoliosis or deformity SKIN: No rashes CENTRAL NERVOUS SYSTEM: No focal deficits, tone is normal in all 4 extremities. EXTREMITIES: There is no peripheral edema. No clubbing, no cyanosis. Peripheral pulses are intact. - Labs CBC & Chem 7: 05/25/17 05:51 05/25/17 05:51 Labs: Abnormal Lab Results - Last 24 Hours (Table) 05/25/17 05/25/17 Range/Units 05:51 05:51 Lymphocytes # 0.8 L (1.0-4.8) k/uL Chloride 113 H (98-107) mmol/L Carbon Dioxide 17 L (22-30) mmol/L Total Protein 5.7 L (6.3-8.2) g/dL Albumin 3.1 L (3.5-5.0) g/dL Assessment and Plan Assessment: Assessment and Plan (1) Hypothyroidism Current Visit: Yes Status: Acute Code(s): E03.9 - HYPOTHYROIDISM, UNSPECIFIED SNOMED Code(s): 86651189 (2) Asthma Current Visit: Yes Status: Acute Code(s): J45.909 - UNSPECIFIED ASTHMA, UNCOMPLICATED SNOMED Code(s): 606616652 (3) Hypertension Current Visit: Yes Status: Acute Code(s): I10 - ESSENTIAL (PRIMARY) HYPERTENSION SNOMED Code(s): 83235360 (4) GERD (gastroesophageal reflux disease) Current Visit: Yes Status: Acute Code(s): K21.9 - GASTRO-ESOPHAGEAL REFLUX DISEASE WITHOUT ESOPHAGITIS SNOMED Code(s): 833516393 (5) Depression Current Visit: Yes Status: Acute Code(s): F32.9 - MAJOR DEPRESSIVE DISORDER , SINGLE EPISODE, UNSPECIFIED SNOMED Code(s): 33574627 (6) Drug overdose Current Visit: Yes Status: Acute Code(s): T50.901A - POISONING BY UNSP DRUG/ MEDS/BIOL SUBST, ACCIDENTAL, INIT SNOMED Code(s): 09420506 (7) ADHD (attention deficit hyperactivity disorder), inattentive type Current Visit: No Status: Acute Priority: Medium Code(s): F90.0 - ATTN- DEFCT HYPERACTIVITY DISORDER, PREDOM INATTENTIVE TYPE SNOMED Code(s): 12348897 (8) Bipolar 1 disorder, depressed Current Visit: No Status: Acute Code(s): F31.9 - BIPOLAR DISORDER, UNSPECIFIED SNOMED Code(s): 17512400 (9) Generalized anxiety disorder Current Visit: No Status: Acute Priority: Medium Code(s): F41.1 - GENERALIZED ANXIETY DISORDER SNOMED Code(s): 40062511 Plan: The patient was seen and evaluated by Dr. Judd. She is much more awake and alert today as compared to yesterday. She denies any intentional overdose. A psychiatric consult is pending. We will increase her activity as tolerated. We 'll continue to follow. I, the cosigning physician, have performed a history and physical examination on the patient. Lung sounds are clear. Maintaining good O2 saturations in the 90s on room air. I have discussed the assessment and plan of care with my nurse practitioner, Leticia Balderrama. I attest the above documented note as dictated by her.
--- NOTE | 2017-05-25 11:23 | P.CN ---
Psychiatric Consult - . Consult:: 05/25/17 11:13 Identifying data: This patient is a 72-year-old female known to my outpatient practice. The patient presented to the hospital unresponsive after an overdose with Seroquel. She has an ongoing diagnosis of bipolar disorder, generalized anxiety disorder, ADHD. The patient was recently treated on the mental health unit for several days. The initial admission was 4 medication overdose. The patient indicates that she is overwhelmed with stressors at home. She continues to describe barriers in the relationship with her . She states that she took the overdose knowing the potential for harm. Prior to her last admission the patient had been off of her mood stabilizer and we had been adjusting the antidepressant medication. The Lamictal was restarted during her last admission Zoloft was continued and Seroquel was titrated. She reports feeling safe in the hospital she is describing no homicidal ideation. She is reporting no auditory or visual hallucinations or specific delusions. Past psychiatric history: The patient has had a total of 2 psychiatric admissions both for suicidal ideation with overdose. She follows at my office for medication management and works with a therapist Peyton at another clinic. Most recently she's been prescribed Zoloft 50 mg daily Lamictal has been restarted 50 mg at bedtime Seroquel was recently increased to 75 mg at bedtime and previously she was on methylphenidate extended release 18 mg daily. The methylphenidate was being held so as not to provoke any symptoms of shekhar. Past medical history refer to history and physical Mental status exam: The patient is alert she is lying in bed she is dressed in hospital attire. Eye contact is appropriate. She endorses a sad depressed mood. She endorses no suicidal ideation today but acknowledges she took the extra pills knowing it could cause harm. She is endorsing no auditory or visual hallucinations or specific delusions is no observable evidence of psychosis. Thought process can be circumstantial she demonstrates no tangential thinking loose associations or flight of ideas. She does not appear hypomanic or manic at this time. She demonstrates no verbal or physical aggressiveness she demonstrates no abnormal involuntary movements. Insight and judgment limited. She is oriented to person place and date. Affect is tearful. Impressions 1. Bipolar disorder most recent depressed, generalized anxiety disorder, ADHD inattentive type II. Cluster B traits Plan: The patient is currently on select care she has been seen by her primary care physician. Once medically cleared we will transition her back to the mental health unit. She indicates she is willing to do this voluntarily. The Seroquel is being held due to the overdose continue Zoloft 50 mg daily Lamictal 50 mg at bedtime. I will discontinue the methylphenidate extended release order. Continue safety assistant until transfer to mental health unit.
[2017-05-25] MEDS ORDERED: CHOLECALCIFEROL 1,000 UNIT TAB PO SCH (12:00)
[2017-05-25] MEDS ORDERED: LACTOBACILLUS ACIDOPH & BULGAR 1 EACH PACKET PO SCH (12:00)
[2017-05-25] MEDS ORDERED: FOLIC ACID 1 MG TAB PO SCH (12:00)
[2017-05-25] MEDS ORDERED: CALCIUM CARB-VIT D 500MG-200UN 1 EACH TAB PO SCH (12:00)
[2017-05-25] MEDS ORDERED: MULTIVITAMINS, THERA 1 EACH TAB PO SCH (12:00)
[2017-05-25 15:55] VITALS: BP 139/96; PULSE 87; RESP 16; TEMP 98.4
[2017-05-25] MEDS ORDERED: LATANOPROST 0.005% OPHTH DROPS 2.5 ML BTL BOTH EYES SCH (21:00)
[2017-05-25] MEDS ORDERED: lamoTRIgine 25 MG TAB PO SCH (21:00)
[2017-05-25] MEDS ORDERED: amLODIPine 10 MG TAB PO SCH (21:00)
--- NOTE | 2017-06-05 08:36 | DS ---
DISCHARGE SUMMARY DATE OF ADMISSION: 05/24/2017 DATE OF DISCHARGE: 05/25/2017 The patient is a 72-year-old female who was admitted to the general medical floor, actually the telemetry unit where she was monitored after presentation to the emergency room with serious mental status changes, obtundation secondary to a Seroquel overdose. The patient was monitored and given IV fluids. Suicidal precautions were undertaken and initial blood pressure medications were held and adjusted and consultation obtained with Psych Services. Please refer to notes by Dr. Villalobos. The patient had been hospitalized previously with a Ambien overdose. The laboratory values revealed a fairly unremarkable CBC x2. Potassium initially was low at 3.4 and was replaced. She did have metabolic acidosis with a CO2 content of 21 and 17. Other general chemistries were satisfactory. Initial blood sugar was 156, but the following morning was down to 77 and other liver function tests were good. The patient once again was seen by Psych Services and also Pulmonary Medicine, Dr. Judd. Plans are now for transfer to the psychiatric pizarro for further evaluation and treatment and care. The EKG did not show any ischemic changes. MEDICATIONS ON DISCHARGE: Will include Lamictal 50 mg, amlodipine 10 mg at bedtime. Zoloft 50 mg daily. Seroquel 75 mg at bedtime pending further adjustment per Psychiatry. Lisinopril 20 mg daily. She is on Synthroid 50 mcg daily with 100 mcg on Saturdays, Tuesdays. She is on Xalatan eyedrops 0.005% 1 drop in both eyes. Hydrocortisone cream applied to affected areas twice a day, folic acid 0.4 mg, vitamin D with 3000 units daily, calcium 600 with vitamin D3 400 units daily, and aspirin 81 mg daily. FINAL DISCHARGE DIAGNOSES: 1. Acute Seroquel overdose. 2. History of manic depression with recent depression. 3. Mild hypokalemia. 4. History of intermittent mild asthma. 5. Hypothyroidism on replacement. 6. History of benign monoclonal gammopathy. 7. Gastroesophageal reflux. 8. History of multiple surgeries for degenerative joint disease including both the left and right hips with revisions along with right knee surgery and previous thumb surgery. 9. Also history of general surgeries which include appendectomy in 2011, previous D and C's, and tubal ligations and also previous laparoscopic banding. DIET AND ACTIVITY: As per the psychiatric pizarro as tolerated. MMODL / IJN: [id number] / ROBERTO
== END 2017-05-25 16:58 | disposition still patient (30) | DRG 918 ==
LOC: EC 08:25 → 6SEL 11:14
PROVIDERS: ADMIT Internal Medicine; ATTEND Internal Medicine
DX: T50.901A Poisoning by unspecified drugs, medicaments and biological substances, accidental (unintentional), initial encounter (principal); F31.9 Bipolar disorder, unspecified; I10 Essential (primary) hypertension; E03.9 Hypothyroidism, unspecified; F90.0 Attention-deficit hyperactivity disorder, predominantly inattentive type; F41.1 Generalized anxiety disorder; E87.6 Hypokalemia; J45.20 Mild intermittent asthma, uncomplicated; K21.9 Gastro-esophageal reflux disease without esophagitis; Z87.891 Personal history of nicotine dependence; Z80.52 Family history of malignant neoplasm of bladder; Z79.82 Long term (current) use of aspirin; Z79.899 Other long term (current) drug therapy; Z82.49 Family history of ischemic heart disease and other diseases of the circulatory system; Z96.642 Presence of left artificial hip joint; Z98.84 Bariatric surgery status; Z88.6 Allergy status to analgesic agent; Z86.69 Personal history of other diseases of the nervous system and sense organs; Z98.41 Cataract extraction status, right eye; Z98.42 Cataract extraction status, left eye; Z96.653 Presence of artificial knee joint, bilateral; Z96.643 Presence of artificial hip joint, bilateral
CPT/HCPCS: 36415; 70450; 71010; 80053; 80306; 80320; 82550; 82553; 83520; 83605; 84484; 85025; 93005; 94760; 96361; 96374; 99291

== ENCOUNTER 2017-05-25 17:02 | Inpatient (IN) | payer MEDICARE ==
[2017-05-25] MEDS ORDERED: MAG HYDROX/AL HYDROX/SIMETH 30 ML CUP PO PRN (17:10)
[2017-05-25] MEDS ORDERED: MAGNESIUM HYDROXIDE 2,400 MG/10 ML CUP PO PRN (17:10)
[2017-05-25] MEDS ORDERED: TRIAMCINOLONE 0.1% CREAM 80 GM TUBE TOPICAL PRN (17:32)
[2017-05-25] MEDS: LATANOPROST 0.005% OPHTH DROPS 2.5 ML BTL BOTH EYES SCH (20:34)
[2017-05-25] MEDS: amLODIPine 10 MG TAB PO SCH (20:34)
[2017-05-25] MEDS: lamoTRIgine 25 MG TAB PO SCH (20:34)
[2017-05-25] MEDS ORDERED: QUEtiapine 25 MG TAB PO SCH (21:00)
[2017-05-25] MEDS: ACETAMINOPHEN TAB 325 MG TAB PO PRN (21:59)
[2017-05-26] MEDS: ACETAMINOPHEN TAB 325 MG TAB PO PRN ×2 (03:55→12:40)
[2017-05-26] MEDS: ASPIRIN 81 MG PO SCH (07:54)
[2017-05-26] MEDS: LISINOPRIL 20 MG TAB PO SCH (07:54)
[2017-05-26] MEDS: SERTRALINE 50 MG TAB PO SCH (07:54)
[2017-05-26] MEDS ORDERED: LOPERAMIDE 2 MG CAP PO PRN (11:01)
--- NOTE | 2017-05-26 11:01 | P.CONS ---
History of Present Illness - History of Present Illness History of present illness The patient is a 72-year-old female who initially was admitted to the medical service back on the after being found unresponsive from an apparent overtaking of her Seroquel. Patient prior to that had had an episode similar with Mykeien. She had presented in a very lethargic state and was monitored on the cardiac unit. Consultation was obtained with Dr. Villalobos her regular psychiatrist and she has been admitted here on the psychiatric floor here at [facility]. Patient has been struggling with increased depression recently. Past medical history Patient does have a history of bipolar disease along with attention deficit disorder and anxiety. As mentioned she's been having more problems with depression of late. Other medical problems include a history of mild intermittent asthma, hypothyroidism on replacement therapy and a history of benign monoclonal gammopathy for which she is followed by hematology. Patient also has gastroesophageal reflux disease. Also history of hypertension. Patient has had multiple surgeries for arthritic problems that include both left and right hip surgeries along with revisions in nearly 1999. She has had right knee surgery and previous thumb surgeries. Other general medical surgical history includes an appendectomy in 2011 and previous D&C and tubal ligations. She has had a previous laparoscopic banding procedure. No history of myocardial infarction diabetes or stroke. Previous home medications prior to admission Lamictal 50 mg at bedtime Amlodipine 10 mg at bedtime Zoloft 50 mg daily Seroquel 75 mg at bedtime Multiple vitamin daily Concerta 18 mg daily Lisinopril 20 mg daily Synthroid 50 g daily and apparently 100 g on Saturdays and Tuesdays. Xalatan eyedrops 0.005% 1 drop in both eyes at bedtime Hydrocortisone cream to affected areas on the skin twice a day as needed Folic acid 0.4 mg daily Vitamin D 50,000 units daily Calcium 600 with vitamin D3 400 units one daily Aspirin 81 mg daily Review of systems Patient is sitting up in a chair. She denies any chest pain shortness of breath. No nausea or vomiting. No unusual headache. No urinary or bowel symptomatology. No unusual edema problems. 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 Patient is a former smoker. Admits only to occasional alcohol usage and no history of illicit substance use. Family history Positive for coronary artery disease. Physical examination: She is alert and pleasant. In no acute distress. Vital signs reveal temperature of 97.5 with a pulse of 86 and respirations 14. Blood pressure is 158/86. Head and neck exam is unremarkable. Extraocular movements intact. Pupils are equal and reactive. Neck is supple without adenopathy, thyromegaly or bruits detected. Breast and pelvic examination deferred. Lungs are clear to auscultation. Heart tones are regular without murmurs. Abdomen is nontender. Extremities reveal no edema. She does have marked degenerative changes about the knees. Hands. Neurologically though she is alert. No cranial nerve deficits. No focal weakness. Labs from yesterday on the medical floor revealed a white count of 6.7 and hemoglobin 11.9 and a platelet count of 173. Sodium was 139 with potassium of 3.6 and a chloride of 113. CO2 content of 17. BUN of 11 with creatinine of 0.8 given her GFR greater than 60. Random blood sugar was 132. TSH performed earlier this month was normal at 1.69. Recent imaging studies include a unremarkable brain CAT scan and chest x-ray. Last EKG on the revealed a normal sinus rhythm. Mild tachycardia. No definite ischemic changes noted. Impressions 1. This 72-year-old female with bipolar disorder and mental illness as previously outlined by psychiatry has had increasing problems with depression. Now requiring 2 admissions to the psychiatric floor along with overtaking of medications 2. Overall seems to be of high risk. 2. Underlying medical concerns of hypertension are mildly elevated. She is back on her home medications. We will continue to monitor and adjust as needed. 3. Other medical problems as listed above generally are stable. She will be continued on her maintenance medications. Past Medical History Past Medical History: Asthma, GERD/Reflux, Hypertension, Osteoarthritis (OA), Thyroid Disorder Additional Past Medical History / Comment(s): Insomnia, past migraines, sinus problems at times, hypothyroid, arthritis-back pain, sciatica, benign monoclonal gammopathy followed by hematology. History of Any Multi-Drug Resistant Organisms: None Reported Past Surgical History: Adenoidectomy, Appendectomy, Bariatric Surgery, Joint Replacement, Orthopedic Surgery, Tonsillectomy, Tubal Ligation Additional Past Surgical History / Comment(s): 2003 lap band, panniculectomy, R hip ORIF/total arthroplasty, L hip arthroplasty x 2, r knee ACL repair and total arthroplasty, R thumb sx, D&Cs, EGDs/colonoscopies, R breast benign bx. Past Anesthesia/Blood Transfusion Reactions: Motion Sickness, Postoperative Nausea & Vomiting (PONV) Smoking Status: Former smoker - Past Family History Mother History Unknown: Yes Family Medical History: Cancer Additional Family Medical History / Comment(s): BLADDER CA- AT 70 YEARS OLD. Father History Unknown: Yes Family Medical History: Coronary Artery Disease (CAD), Myocardial Infarction (PR ) Additional Family Medical History / Comment(s): AT 60 YRS OLD Medications and Allergies Home Medications Medication Instructions Recorded Confirmed Type Aspirin 81 mg PO DAILY 12/02/14 05/24/17 History Calcium Carbonate/Vitamin D3 1 tab PO DAILY 12/02/14 05/24/17 History [Calcium 600-Vit D3 400 Tablet] Levothyroxine Sodium [Synthroid] 50 mcg PO SUMOWETHFR 12/02/14 05/24/17 History Multivitamins, Thera [Multivitamin 1 tab PO DAILY 12/02/14 05/24/17 History (formulary)] Cholecalciferol [Vitamin D3] 1,000 unit PO DAILY 05/18/17 05/24/17 History Folic Acid 0.4 mg PO DAILY 05/18/17 05/24/17 History Hydrocortisone Cream 1 applic TOPICAL BID PRN 05/18/17 05/24/17 History [Hydrocortisone 2.5% Cream] L.acidoph,Paracasei, B.lactis 1 cap PO DAILY 05/18/17 05/24/17 History [Probiotic] Latanoprost Ophth [Xalatan 0.005%] 1 drops BOTH EYES HS 05/18/17 05/24/17 History Methylphenidate HCl [Concerta] 18 mg PO DAILY 05/18/17 05/24/17 History amLODIPine BESYLATE [Norvasc] 10 mg PO HS 05/18/17 05/24/17 History Lisinopril [Zestril] 20 mg PO DAILY #30 tab 05/23/17 05/24/17 Rx QUEtiapine [SEROquel] 75 mg PO HS #90 tab 05/23/17 05/24/17 Rx Sertraline [Zoloft] 50 mg PO DAILY tab 05/23/17 05/24/17 Rx lamoTRIgine [LaMICtal] 50 mg PO HS #60 tab 05/23/17 05/24/17 Rx Allergies Allergy/AdvReac Type Severity Reaction Status Date / Time OPIATES AdvReac Unknown AGITATION Uncoded 05/24/17 08:33 Physical Exam Vitals: Vital Signs Temp Pulse Pulse Pulse Resp BP BP 05/26/17 09:30 86 14 158/86 05/26/17 07:50 87 14 167/84 05/26/17 06:48 16 05/26/17 06:11 97.5 F L 85 16 05/25/17 20:40 76 18 BP 05/26/17 09:30 05/26/17 07:50 05/26/17 06:48 145/86 05/26/17 06:11 186/96 05/25/17 20:40 133/97 Intake and Output 05/25/17 05/26/17 05/26/17 22:59 06:59 14:59 Other: Weight 68.5 kg
[2017-05-26] MEDS ORDERED: LACTOBACILLUS ACIDOPH & BULGAR 1 EACH PACKET PO SCH (12:00)
[2017-05-26] MEDS ORDERED: FOLIC ACID 1 MG TAB PO SCH (12:00)
[2017-05-26] MEDS: CHOLECALCIFEROL 1,000 UNIT TAB PO SCH (12:38)
[2017-05-26] MEDS: CALCIUM CARB-VIT D 500MG-200UN 1 EACH TAB PO SCH (12:38)
[2017-05-26] MEDS: MULTIVITAMINS, THERA 1 EACH TAB PO SCH (12:38)
[2017-05-26] MEDS: FOLIC ACID 1 MG TAB PO SCH (12:39)
[2017-05-26] MEDS: LACTOBACILLUS ACIDOPH & BULGAR 1 EACH PACKET PO SCH (12:39)
--- NOTE | 2017-05-26 14:13 | P.HP ---
Psychiatric H&P - . H&P Date: 05/26/17 History & Physical: Allergies Allergy/AdvReac Type Severity Reaction Status Date / Time OPIATES AdvReac Unknown AGITATION Uncoded 05/24/17 08:33 Vital Signs Temp 97.5 F L 05/26/17 06:11 Pulse 86 05/26/17 09:30 Resp 14 05/26/17 09:30 BP 158/86 05/26/17 09:30 Pulse Ox Intake & Output 05/25/17 05/26/17 05/26/17 18:59 06:59 18:59 Weight 68.5 kg 05/26/17 14:03 IDENTIFYING DATA: 72-year-old female patient HPI: patient admitted to the inpatient psychiatric unit [facility] on a voluntary basis with recent concerns of depression and overdose of Seroquel. Patient states that she had had another recent admission to the [facility] and was discharged home and things were pretty chaotic and she felt like she wanted to be out of pain. She took an overdose of Seroquel denies having had thoughts of suicide at the time but she had pain and wanted to sleep. The recent on prior hospitalization she had taken an overdose of Ambien prior to hospitalization. She does admit to recent depression. She makes reference to having had some depression related to Aldactone in 2013 and came off of the Aldactone. She seems to relate no significant prior history of depressive episodes. She does have per chart history of bipolar disorder. She says since late she's either Clarke pre-op pain her postop pain. She has been placed back on Seroquel 25 mg at bedtime last night and says she only slept 3 hours, relays that she does not feel oversedated. PAST PSYCHIATRIC HISTORY: has been seeing Dr. Villalobos as an outpatient she states for a couple of years. Per chart, history of diagnosis of bipolar disorder. She has been on most recently Zoloft which has a history of working well, Seroquel and Lamictal. She denies any history of suicide attempts. She doesn' t history of self-medicating. She was on Xanax in the past. She currently sees a therapist Peyton at [facility]. PMH:primary care doctor is Dr. Stone. She said total hip replacements bilaterally with multiple dislocations. She had 2 revisions of the hip surgery. She's had bilateral total knee replacements. Mild asthma, lap band surgery, panniculectomy ALLERGIES: opiates MEDICATIONS:Tylenol when necessary, Maalox when necessary,Norvasc, aspirin,Os- Tima plus D, vitamin D3,folic acid, Lactinex,Lamictal, Xalatan,Synthroid, Zestril ,Imodium when necessary, milk of magnesia when necessary,Theragran, Zoloft, Seroquel, Kenalog when necessary CHEMICAL DEPENDENCY HISTORY: denies, quit smoking FAMILY PSYCHIATRIC HISTORY: none known at this time. FAMILY CHEMICAL DEPENDENCY HISTORY: none known at this time. SOCIAL HISTORY: currently lives with her and dog; 2 biological children and 1 child that they have helped take care of. 9 grandchildren. 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 MENTAL STATUS EXAM: she is alert and cooperative with the interview. Her speech is fluent, not rapid or pressured. Thought processes organized. Her mood she describes as "hopeful, peaceful." She denies any thoughts of harm to self or others. There is no evidence of psychosis or agitation. Cognitively she appears to be grossly intact. STRENGTHS/WEAKNESSES: strengthsfamily support; weaknessescoping skills INTELLECTUAL FUNCTIONING: average IMPRESSIONS: bipolar disorder, depressed PLAN: patient is admitted to the inpatient psychiatric unit [facility] on a voluntary basis. She'll be placed on SP 15 minute precautions. Baseline laboratory workup done patient medical consultation will be ordered. She'll participate in group and activity therapies. Baseline laboratory workup will be done the patient. We'll maintain Zoloft and Lamictal as current. We' ll titrate up on Seroquel to help further with the mood stability and would also likely help with difficulty with sleep. We will monitor for any side effects. Continue to monitor regarding any suicidal ideations. We will look into family supports. Estimated length of stay is 3-5 days. Prognosis is guarded. We'll continue to cover this patient for Dr. Villalobos through the weekend.
[2017-05-26] MEDS: LATANOPROST 0.005% OPHTH DROPS 2.5 ML BTL BOTH EYES SCH (20:05)
[2017-05-26] MEDS: amLODIPine 10 MG TAB PO SCH (20:05)
[2017-05-26] MEDS: QUEtiapine 50 MG TAB PO SCH (20:05)
[2017-05-26] MEDS: lamoTRIgine 25 MG TAB PO SCH (20:05)
[2017-05-27] MEDS: LEVOTHYROXINE 50 MCG TAB PO SCH (06:42)
[2017-05-27] MEDS: ASPIRIN 81 MG PO SCH (08:18)
[2017-05-27] MEDS: LISINOPRIL 20 MG TAB PO SCH (08:19)
[2017-05-27] MEDS: SERTRALINE 50 MG TAB PO SCH (08:20)
[2017-05-27] MEDS: CALCIUM CARB-VIT D 500MG-200UN 1 EACH TAB PO SCH (12:29)
[2017-05-27] MEDS: CHOLECALCIFEROL 1,000 UNIT TAB PO SCH (12:29)
[2017-05-27] MEDS: MULTIVITAMINS, THERA 1 EACH TAB PO SCH (12:30)
[2017-05-27] MEDS: LACTOBACILLUS ACIDOPH & BULGAR 1 EACH PACKET PO SCH (12:30)
[2017-05-27] MEDS: FOLIC ACID 1 MG TAB PO SCH (12:30)
[2017-05-27] MEDS: ACETAMINOPHEN TAB 325 MG TAB PO PRN (12:31)
--- NOTE | 2017-05-27 17:33 | P.PN ---
Progress Note - Text Progress Note Date: 05/27/17 Interval history: Patient seen in [facility] today for Dr. Villalobos. She reports that her mood is doing better. She does state that she slept well last night until they woke her up to take her blood pressure. She does not seem to voice any adverse psychotropic medication side effects. Her did come to visit last night. Mental status exam: She is alert and cooperative with the interview. Her speech is fluent, not rapid or pressured. Thought processes are organized. Her affect does show range. Her mood is improved. She does not verbalize any thoughts of harm to self others. No evidence of psychosis. Plan: We'll maintain current psychotropic medication regimen. Patient status does appear to be improving. Dr. Villalobos to resume care this patient starting tomorrow.
[2017-05-27] MEDS: amLODIPine 10 MG TAB PO SCH (20:39)
[2017-05-27] MEDS: QUEtiapine 50 MG TAB PO SCH (20:39)
[2017-05-27] MEDS: lamoTRIgine 25 MG TAB PO SCH (20:39)
[2017-05-27] MEDS: LATANOPROST 0.005% OPHTH DROPS 2.5 ML BTL BOTH EYES SCH (20:40)
[2017-05-28] MEDS: ACETAMINOPHEN TAB 325 MG TAB PO PRN ×3 (02:15→20:36)
[2017-05-28] MEDS: LEVOTHYROXINE 50 MCG TAB PO SCH (06:25)
[2017-05-28] MEDS: ASPIRIN 81 MG PO SCH (08:16)
[2017-05-28] MEDS: SERTRALINE 50 MG TAB PO SCH (08:16)
[2017-05-28] MEDS: LISINOPRIL 20 MG TAB PO SCH (08:16)
--- NOTE | 2017-05-28 08:34 | P.PN ---
Progress Note - Text The patient is a 72-year-old female who was admitted initially to my medical service back on the after she was found unresponsive from an apparent overtaking of Seroquel. Patient had had a similar episode with Mykeien earlier in the month. She is now presently on the psychiatric floor here at [facility]. She is presently up eating in the lounge. She denies any chest pain or shortness of breath. Does complain of insomnia. She does complain of some epigastric discomfort but no vomiting apparently on the pizarro. Last vital signs reveal a temperature of 98.3 pulse is up at 116. Respiratory rate is 16 and blood pressure 141/90. Overall she is alert and oriented. No focal neurological changes. She does not appear to be any respiratory distress. Impressions and plans The patient's blood pressures generally stable. We will continue her lisinopril and amlodipine at present dosages. Discussed with patient, if she continues to have problems with epigastric discomfort this could be worked up with gastroscopy as an outpatient.
--- NOTE | 2017-05-28 11:10 | P.PN ---
Progress Note - Text Interval history: The patient is found in her room she follows me to an interview room. She reports that yesterday her mood seemed to be better but she became more concerned and dysphoric after a visit with her . She states that he had described his own anxiety and she feels guilty as she assumes she was the precipitating cause. She reports having difficulty sleeping last night only getting 4 hours. We again discussed her thought process in terms of overdosing, this time choosing Seroquel. She indicates that she didn't think it would kill her but she wasn't sure. At the time she felt overwhelmed with concerns regarding her which likely prompted impaired sleep. And she took the medications to ensure she slept. We spent some time this morning examining how to change that decision-making process in a time of crisis. We discussed the possibility of developing more cognitive behavioral type strategies. Mental status exam: The patient is alert she is ambulating by pushing a wheelchair. She is dressed in her own clothing. She is pleasant and cooperative. She indicates her mood has fluctuated somewhat. She spends the bulk of the session discussing concerns regarding interactions with her . She is reporting no suicidal ideation today. She endorses no symptoms of psychosis no homicidal ideation. Thought process can be circumstantial at times. She demonstrates no loose associations or flight of ideas. No tangential thinking. She does not appear hypomanic or manic. She i demonstrates no abnormal involuntary movements. No verbal or physical aggressiveness. She remains oriented to person place and date. Affect is appropriately expressive. Plan: The patient will continue on her current medications however we will re- titrate the Seroquel to 75 mg at bedtime. We will likely titrate the Lamictal further during the course of this hospitalization. Continue Zoloft as written. I have asked social work to arrange a family meeting involving myself and her with the patient tomorrow if possible. We will continue to monitor the patient for safety and encourage her participation in the milieu.
[2017-05-28] MEDS: LACTOBACILLUS ACIDOPH & BULGAR 1 EACH PACKET PO SCH (12:47)
[2017-05-28] MEDS: CHOLECALCIFEROL 1,000 UNIT TAB PO SCH (12:47)
[2017-05-28] MEDS: MULTIVITAMINS, THERA 1 EACH TAB PO SCH (12:47)
[2017-05-28] MEDS: CALCIUM CARB-VIT D 500MG-200UN 1 EACH TAB PO SCH (12:47)
[2017-05-28] MEDS: FOLIC ACID 1 MG TAB PO SCH (12:48)
[2017-05-28] MEDS: amLODIPine 10 MG TAB PO SCH (20:34)
[2017-05-28] MEDS: lamoTRIgine 25 MG TAB PO SCH (20:35)
[2017-05-28] MEDS: LATANOPROST 0.005% OPHTH DROPS 2.5 ML BTL BOTH EYES SCH (20:40)
[2017-05-28] MEDS ORDERED: QUEtiapine 25 MG TAB PO SCH (21:00)
[2017-05-29] MEDS: ACETAMINOPHEN TAB 325 MG TAB PO PRN ×2 (02:01→07:29)
[2017-05-29 06:51] VITALS: BP 160/84; PULSE 87; RESP 16; TEMP 97.7
[2017-05-29] MEDS: SERTRALINE 50 MG TAB PO SCH (08:09)
[2017-05-29] MEDS: LISINOPRIL 20 MG TAB PO SCH (08:09)
[2017-05-29] MEDS: ASPIRIN 81 MG PO SCH (08:09)
--- NOTE | 2017-05-29 10:12 | P.DS ---
Providers Date of admission: 05/25/17 17:06 Expected date of discharge: 05/29/17 Attending physician: Carlos Alberto Villalobos Consults: 05/25/17 17:10 Consult Physician Routine Consulting Provider: Carlos Alberto Guerra Consult Reason/Comments: H & P and medical management Do you want consulting provider notified?: Yes Primary care physician: Stated None - Discharge Diagnosis(es) (1) Bipolar disorder Current Visit: No Status: Acute Priority: High (2) Generalized anxiety disorder Current Visit: No Status: Acute Priority: Medium (3) ADHD (attention deficit hyperactivity disorder), inattentive type Current Visit: No Status: Acute Priority: Medium Hospital Course: Brief summary of admission note: The patient is a 72-year-old female who was admitted to the mental health unit after overdosing with Seroquel. The patient had just been recently discharged mental health unit. She reported things at home were chaotic she was unable to sleep that evening and had stomach pain. She took the remaining Seroquel pills in the bottle in order to sleep. The patient is well known to me from the outpatient setting. For full details please refer to the psychiatric evaluation note dictated by Dr. Martel. Summary of hospital course: The patient presented to the emergency room she was admitted to [facility] for I initially saw her. She was medically stabilized and transferred to the mental health unit. She did sign in voluntarily. Throughout the hospitalization she was seen by her primary care physician Dr. Naik. We continued the Zoloft 50 mg daily we ultimately titrated the Lamictal to 100 mg at bedtime Seroquel was re-titrated to 75 mg at bedtime as it has been helpful with sleep. The patient reported a progressive improvement of symptoms while here. Today I held a family meeting involving her for approximately one hour. We discussed presenting circumstances we discussed the need for a change in her outpatient psychotherapy sessions utilizing CBT. The patient's indicates he feels comfortable with the patient returning home and believes she would be safe. Again he is instructed to control all medications at this time and dispense them to her. He is agreeable. Mental status exam: The patient is alert she seated calmly eye contact is appropriate. Speech is fluent spontaneous nonpressured. She can be circumstantial but she demonstrates no tangential thinking loose associations or flight of ideas. She endorses no auditory or visual hallucinations or specific delusions. There is no evidence of psychosis. She does not appear hypomanic or manic. Affect is appropriately expressive. She demonstrates no verbal or physical aggressiveness she demonstrates no abnormal involuntary movements. She is oriented to person place and date. Impressions 1. Bipolar disorder depressed, generalized anxiety disorder, ADHD inattentive type II. Cluster B traits Plan: The patient will be discharged mental health unit today to return home residing with her . She will follow with me in the office for outpatient psychiatric medication management. She plans on returning to her therapist Peyton at [facility]. She will continue on Zoloft 50 mg daily , Lamictal 100 mg at bedtime, Seroquel 75 mg at bedtime. There is no imminent safety risk she is appropriate for discharge to outpatient care. She is instructed to return to the hospital with any acute safety concerns. The patient and her are agreeable to the treatment plan as we discussed during our meeting this morning. Patient Condition at Discharge: Stable Plan - Discharge Summary New Discharge Prescriptions: New Acetaminophen Tab [Tylenol] 650 mg PO Q4HR PRN tab PRN Reason: Pain/Discomfort lamoTRIgine [LaMICtal] 100 mg PO HS #30 tab Triamcinolone 0.1% Cream [Kenalog] 1 applic TOPICAL BID PRN applic PRN Reason: Rash Continue Aspirin 81 mg PO DAILY Levothyroxine Sodium [Synthroid] 50 mcg PO SUMOWETHFR Multivitamins, Thera [Multivitamin (formulary)] 1 tab PO DAILY Calcium Carbonate/Vitamin D3 [Calcium 600-Vit D3 400 Tablet] 1 tab PO DAILY Latanoprost Ophth [Xalatan 0.005%] 1 drops BOTH EYES HS Folic Acid 0.4 mg PO DAILY Cholecalciferol [Vitamin D3] 1,000 unit PO DAILY amLODIPine BESYLATE [Norvasc] 10 mg PO HS Hydrocortisone Cream [Hydrocortisone 2.5% Cream] 1 applic TOPICAL BID PRN PRN Reason: Rash L.acidoph,Paracasei, B.lactis [Probiotic] 1 cap PO DAILY Lisinopril [Zestril] 20 mg PO DAILY #30 tab QUEtiapine [SEROquel] 75 mg PO HS #90 tab Sertraline [Zoloft] 50 mg PO DAILY #30 tab Discontinued Methylphenidate HCl [Concerta] 18 mg PO DAILY lamoTRIgine [LaMICtal] 50 mg PO HS #60 tab Discharge Medication List Aspirin 81 mg PO DAILY 12/02/14 [History] Calcium Carbonate/Vitamin D3 [Calcium 600-Vit D3 400 Tablet] 1 tab PO DAILY [History] Levothyroxine Sodium [Synthroid] 50 mcg PO SUMOWETHFR 12/02/14 [History] Multivitamins, Thera [Multivitamin (formulary)] 1 tab PO DAILY 12/02/14 [History ] Cholecalciferol [Vitamin D3] 1,000 unit PO DAILY 05/18/17 [History] Folic Acid 0.4 mg PO DAILY 05/18/17 [History] Hydrocortisone Cream [Hydrocortisone 2.5% Cream] 1 applic TOPICAL BID PRN [History] L.acidoph,Paracasei, B.lactis [Probiotic] 1 cap PO DAILY 05/18/17 [History] Latanoprost Ophth [Xalatan 0.005%] 1 drops BOTH EYES HS 05/18/17 [History] amLODIPine BESYLATE [Norvasc] 10 mg PO HS 05/18/17 [History] Lisinopril [Zestril] 20 mg PO DAILY #30 tab 05/23/17 [Rx] Acetaminophen Tab [Tylenol] 650 mg PO Q4HR PRN tab 05/29/17 [Rx] QUEtiapine [SEROquel] 75 mg PO HS #90 tab 05/29/17 [Rx] Sertraline [Zoloft] 50 mg PO DAILY #30 tab 05/29/17 [Rx] Triamcinolone 0.1% Cream [Kenalog] 1 applic TOPICAL BID PRN applic 05/29/17 [Rx ] lamoTRIgine [LaMICtal] 100 mg PO HS #30 tab 05/29/17 [Rx]
[2017-05-29] MEDS: CHOLECALCIFEROL 1,000 UNIT TAB PO SCH (12:04)
[2017-05-29] MEDS: FOLIC ACID 1 MG TAB PO SCH (12:04)
[2017-05-29] MEDS: CALCIUM CARB-VIT D 500MG-200UN 1 EACH TAB PO SCH (12:04)
[2017-05-29] MEDS: LACTOBACILLUS ACIDOPH & BULGAR 1 EACH PACKET PO SCH (12:04)
[2017-05-29] MEDS: MULTIVITAMINS, THERA 1 EACH TAB PO SCH (12:09)
[2017-05-29] MEDS ORDERED: lamoTRIgine 100 MG TAB PO SCH (21:00)
== END 2017-05-29 16:09 | disposition home or self-care (01) | DRG 885 ==
LOC: 3MHU 17:06
PROVIDERS: ADMIT Psychiatry & Neurology Psychiatry; ATTEND Psychiatry & Neurology Psychiatry
DX: F31.9 Bipolar disorder, unspecified (principal); R45.851 Suicidal ideations; I10 Essential (primary) hypertension; E03.9 Hypothyroidism, unspecified; F41.1 Generalized anxiety disorder; F90.0 Attention-deficit hyperactivity disorder, predominantly inattentive type; J45.20 Mild intermittent asthma, uncomplicated; K21.9 Gastro-esophageal reflux disease without esophagitis; Z91.5 Personal history of self-harm; Z79.82 Long term (current) use of aspirin; Z79.899 Other long term (current) drug therapy; Z80.52 Family history of malignant neoplasm of bladder; Z82.49 Family history of ischemic heart disease and other diseases of the circulatory system; Z87.891 Personal history of nicotine dependence; Z96.642 Presence of left artificial hip joint; Z96.653 Presence of artificial knee joint, bilateral; Z98.84 Bariatric surgery status

== ENCOUNTER → 2017-06-26 | Outpatient (CLI) | payer MEDICARE ==
--- NOTE | 2017-06-26 12:29 | NM ---
EXAMINATION TYPE: NM hepatobiliary w EF DATE OF EXAM: 06/26/2017 COMPARISON: NONE INDICATION: Right upper quadrant pain TECHNIQUE: After the intravenous administration of 5.4 mCi Tc 99m Mebrofenin hepatobiliary scintigrap hy is performed. Images were obtained immediately post injection. FINDINGS: There is prompt uptake and excretion of radiotracer by the liver. Extrahepatic ducts are identified at 11 minutes. The gallbladder is visualized within 20 minutes. At one hour 8 ounces of oral ensure plus is given to mimic CCK and gallbladder ejection fraction is c alculated at %, which is elevated range. (Normal >35% and <80%.). IMPRESSION: 1. Hyperkinesia with ejection fraction of 85%
--- NOTE | 2017-06-26 15:05 | US ---
EXAMINATION TYPE: US gallbladder DATE OF EXAM: 06/26/2017 COMPARISON: NONE CLINICAL HISTORY: Rt Upper Quad Pain R10.11. EXAM MEASUREMENTS: Liver Length: 12.9 cm Gallbladder Wall: 0.3 cm CBD: 0.7 cm Right Kidney: 11.1 x 5.0 x 4.6 cm Pancreas: Pancreatic duct is mildly dilated at 3mm within the body. Tail obscured by overlying bowel gas Liver: wnl Gallbladder: stones within, wall upper limits of normal. No pericholecystic fluid or gallbladder wal l thickening is evident. Evidence for sonographic Ocampo's sign: no CBD: Normal for the patient age Right Kidney: echogenic foci noted probable stones, largest measuring 0.5 x 0.2 x 0.3cm IMPRESSION: 1. Nonobstructing renal stones. 2. Gallstones without ultrasound evidence of acute cholecystitis.
== END | disposition home or self-care (01) ==
LOC: RADUSMAIN 08:49
PROVIDERS: ATTEND Surgery
DX: N20.0 Calculus of kidney (principal); K80.20 Calculus of gallbladder without cholecystitis without obstruction
CPT/HCPCS: 76705; 78226; A9537

== ENCOUNTER → 2017-07-16 | Outpatient (CLI) | payer MEDICARE ==
[2017-07-16 15:57] VITALS: BP 170/98; PULSE 68; TEMP 97.7; BMI 25.4
--- NOTE | 2017-07-16 17:15 | P.HPBAR ---
Bariatric H&P - History & Physicial H&P Date: 07/16/17 History & Physicial: Visit/CC: lap band follow up Patient initial contact: Initial weight: 66.026 kg Initial weight in pounds: 145.56 Height: 5 ft 3 in Initial BMI: 25.7 Last weight: Current weight: 65.317 kg Current weight in pounds: 144.00 Current BMI: 25.4 [place] body weight (based on NIH guidelines): 52.163 kg Excess body weight loss: 5.1% The patient is a 72 year-old F who presents for Bariatric Assessment. Patient resents today for LAP-BAND follow-up. She has complaints of hunger. She wish to fill. Her band is currently empty. 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 EGD 06/22/17 Past Anesthesia/Blood Transfusion Reactions: Motion Sickness, Postoperative Nausea & Vomiting (PONV) Smoking Status: Former smoker - Past Family History Mother History Unknown: Yes Family Medical History: Cancer Additional Family Medical History / Comment(s): BLADDER CA- AT 70 YEARS OLD. Father History Unknown: Yes Family Medical History: Coronary Artery Disease (CAD), Myocardial Infarction ([place] ) Additional Family Medical History / Comment(s): AT 60 YRS OLD Surgical - Exam Vital Signs Temp Pulse BP 97.7 F 68 170/98 07/16/17 15:55 07/16/17 15:55 07/16/17 15:55 - General well developed, no distress - Eyes PERRL - ENT normal pinna - Neck no masses - Respiratory normal expansion - Cardiovascular Rhythm: regular - Abdomen Abdomen: soft, non tender Bariatric Assessment & Plan Plan: The patient's lap band adjusted. She had 1.3 mL added to her band. She'll follow-up one month. Bariatric Checklist Checklist: Plan: Checklist: EGD: 1. Hiatal hernia: 2. H. Pylori: HgbA1c: Vitamin D: Smoking: Former smoker Primary care physician referral: Dr. Carlos Alberto Guerra Psychiatry clearance: Cardiology clearance: Sleep study: Diet journal: VTE risk score: VTE risk level: Rehab needs at discharge:
== END | disposition home or self-care (01) ==
LOC: BARWHC3 14:53
PROVIDERS: ATTEND Surgery
DX: Z09 Encounter for follow-up examination after completed treatment for conditions other than malignant neoplasm (principal); T73.0XXA Starvation, initial encounter; J45.909 Unspecified asthma, uncomplicated; I10 Essential (primary) hypertension; Z98.84 Bariatric surgery status; Z90.49 Acquired absence of other specified parts of digestive tract; Z98.890 Other specified postprocedural states; Z87.891 Personal history of nicotine dependence
CPT/HCPCS: 99212

== ENCOUNTER → 2017-09-24 | Outpatient (CLI) | payer MEDICARE ==
[2017-09-24 14:55] VITALS: BP 144/88; PULSE 88; RESP 15; BMI 27.1
--- NOTE | 2017-09-24 16:12 | P.HPBAR ---
Bariatric H&P - History & Physicial H&P Date: 09/24/17 History & Physicial: Visit/CC: band adjustment Patient initial contact: Initial weight: 66.026 kg Initial weight in pounds: 145.56 Height: 5 ft 3 in Initial BMI: 25.7 Last weight: Current weight: 69.536 kg Current weight in pounds: 153.30 Current BMI: 27.1 [place] body weight (based on NIH guidelines): 52.163 kg Excess body weight loss: The patient is a 72 year-old F who presents for Bariatric Assessment. The patient resents today for LAP-BAND follow-up. She has hunger and wants to have her band fill. 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 EGD 06/22/17 Past Anesthesia/Blood Transfusion Reactions: Motion Sickness, Postoperative Nausea & Vomiting (PONV) Past Psychological History: ADD/ADHD, Anxiety, Depression Additional Psychological History / Comment(s): 09/14/17: Pt states she has recenlty been dx with depression and panic attacks and it is "not pretty." PT recently admitted on 05/18/17 with bipolar, ADHD, generalized anxiety, impulsive overdose of ambien d/t difficulty sleeping, PAST INTENTIONAL OVERDOSE ATTEMPT 12/02/2014-(PREVIOUSLY RECORDED THAT SHE THOUGHT SHE HAD ALZHEIMERS). Pt resides with her spouse. Pt is normally independent. Pt's spouse is uncertain if this was an accidental overdose or not, he wants pt to be admitted to psychiatric floor once stable. He has cancelled their upcoming vacation to [facility]. Smoking Status: Former smoker Past Alcohol Use History: Occasional Additional Past Alcohol Use History / Comment(s): QUIT SMOKING 1978. SMOKED 1PPD. SMOKED FOR 20 YEARS. Past Drug Use History: None Reported - Past Family History Mother History Unknown: Yes Family Medical History: Cancer Additional Family Medical History / Comment(s): BLADDER CA- AT 70 YEARS OLD. Father History Unknown: Yes Family Medical History: Coronary Artery Disease (CAD), Myocardial Infarction ([place] ) Additional Family Medical History / Comment(s): AT 60 YRS OLD Surgical - Exam Vital Signs Pulse Resp BP 88 15 144/88 09/24/17 14:53 09/24/17 14:53 09/24/17 14:53 - General well developed, no distress - Eyes PERRL - ENT normal pinna - Neck no masses - Respiratory normal expansion - Cardiovascular Rhythm: regular - Abdomen Abdomen: soft, non tender Bariatric Assessment & Plan Plan: The patient LAP-BAND was adjusted. She had 1 mL added to her band. She'll follow-up in one month. Bariatric Checklist Checklist: Plan: Checklist: EGD: 1. Hiatal hernia: 2. H. Pylori: HgbA1c: Vitamin D: Smoking: Former smoker Primary care physician referral: Dr. Carlos Alberto Guerra Psychiatry clearance: Cardiology clearance: Sleep study: Diet journal: VTE risk score: VTE risk level: Rehab needs at discharge:
== END | disposition home or self-care (01) ==
LOC: BARWHC3 14:19
PROVIDERS: ATTEND Surgery
DX: Z48.815 Encounter for surgical aftercare following surgery on the digestive system (principal); Z98.84 Bariatric surgery status; Z98.890 Other specified postprocedural states; Z87.891 Personal history of nicotine dependence
CPT/HCPCS: 99212

== ENCOUNTER → 2018-07-03 | Outpatient (CLI) | payer MEDICARE ==
--- NOTE | 2018-07-05 09:31 | MM ---
Reason for exam: screening (asymptomatic). Last mammogram was performed 1 year and 6 months ago. History: Patient is postmenopausal and had first child at age 31. Family history of premenopausal breast cancer in maternal cousin at age 40. Benign right mammotome panel of the right breast, May 23, 2010. Benign excisional biopsy of the left breast. Took estrogen for 22 years 6 months beginning at age 44. Took progesterone for 22 years 6 months beginning at age 44. Physical Findings: A clinical breast exam by your physician is recommended on an annual basis and results should be correlated with mammographic findings. MG 3D Screening Mammo W/Cad Bilateral CC and MLO view(s) were taken. Prior study comparison: January 15, 2017, bilateral MG 3d screening mammo w/cad. November 23, 2015, bilateral MG 3d screening mammo w/cad. The breast tissue is heterogeneously dense. This may lower the sensitivity of mammography. Previous mammotome biopsy in the right breast. No significant changes when compared with prior studies. ASSESSMENT: Negative, BI-RAD 1 RECOMMENDATION: Routine screening mammogram of both breasts in 1 year.
== END ==
LOC: RADMAMWWP 09:22
PROVIDERS: ATTEND Internal Medicine
DX: Z12.31 Encounter for screening mammogram for malignant neoplasm of breast (principal)
CPT/HCPCS: 77063; 77067

== ENCOUNTER → 2018-07-03 | Outpatient (CLI) | payer MEDICARE ==
[2018-07-03 16:21] LABS: T4, Free (Free Thyroxine) 1.1 ng/dL (0.80-1.80)
== END | disposition home or self-care (01) ==
LOC: LABWHC1 09:35
PROVIDERS: ATTEND Internal Medicine Endocrinology, Diabetes & Metabolism
DX: E03.9 Hypothyroidism, unspecified (principal)
CPT/HCPCS: 36415; 84439; 84443; 84481

== ENCOUNTER → 2019-05-21 | Outpatient (CLI) | payer MEDICARE ==
[2019-05-21 10:04] VITALS: BP 147/85; PULSE 80; TEMP 97.8; BMI 28.1
--- NOTE | 2019-05-21 12:01 | P.HPBAR ---
Bariatric H&P - History & Physicial H&P Date: 05/21/19 History & Physicial: Visit/CC: lap band adjustment Patient initial contact: Initial weight: 66.026 kg Initial weight in pounds: 145.56 Height: 5 ft 3 in Initial BMI: 25.7 Last weight: Current weight: 72.121 kg Current weight in pounds: 159.00 Current BMI: 28.1 [place] body weight (based on NIH guidelines): 52.163 kg Excess body weight loss: The patient is a 74 year-old F who presents for Bariatric Assessment. Patient presents to the clinic today. She had a fill yesterday she has dysphagia. She is requesting fluid to be removed. 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 EGD 06/22/17 Past Anesthesia/Blood Transfusion Reactions: Motion Sickness, Postoperative Nausea & Vomiting (PONV) Smoking Status: Former smoker - Past Family History Mother History Unknown: Yes Family Medical History: Cancer Additional Family Medical History / Comment(s): BLADDER CA- AT 70 YEARS OLD. Father History Unknown: Yes Family Medical History: Coronary Artery Disease (CAD), Myocardial Infarction ([place]) Additional Family Medical History / Comment(s): AT 60 YRS OLD Surgical - Exam Vital Signs Temp Pulse BP 97.8 F 80 147/85 05/21/19 10:02 05/21/19 10:02 05/21/19 10:02 - General well developed, well nourished, no distress - Eyes PERRL - ENT normal pinna - Neck no masses - Respiratory normal expansion - Cardiovascular Rhythm: regular - Abdomen Abdomen: soft, non tender Bariatric Assessment & Plan Plan: Patient LAP-BAND had fluid removed. 0.5 mL was removed from band. She currently is her 1.7 mL in the band. She was able drink water without difficulty. She'll follow-up in one week. Bariatric Checklist Checklist: Plan: Checklist: EGD: 1. Hiatal hernia: 2. H. Pylori: HgbA1c: Vitamin D: Smoking: Former smoker Primary care physician referral: Dr. Carlos Alberto Guerra Psychiatry clearance: Cardiology clearance: Sleep study: Diet journal: VTE risk score: VTE risk level: Rehab needs at discharge:
== END ==
LOC: BARWHC3 09:41
PROVIDERS: ATTEND Surgery
DX: Z46.51 Encounter for fitting and adjustment of gastric lap band (principal); R13.10 Dysphagia, unspecified; Z87.891 Personal history of nicotine dependence
CPT/HCPCS: 99212

== ENCOUNTER 2020-03-11 18:56 | Inpatient (IN) | payer MEDICARE ==
[2020-03-11] MEDS ORDERED: SODIUM CHLORIDE 0.9% 500 ML 500 ML IV STA (19:37)
[2020-03-11] MEDS ORDERED: KETOROLAC 15 MG/ML 1 ML VIAL IVP STA (19:37)
--- NOTE | 2020-03-11 19:44 | ED ---
General Adult HPI - General Source: patient, family, RN notes reviewed Mode of arrival: ambulatory Limitations: no limitations <Nile Ramos - Last Filed: 03/11/20 23:23> <Olman Power - Last Filed: 03/14/20 07:23> - General Chief complaint: Abdominal Pain Stated complaint: Abd pain Time Seen by Provider: 03/11/20 19:18 - History of Present Illness Initial comments: 74-year-old female with a complicated past medical history including several abdominal surgeries presents to the emergency room for abdominal pain. Patient reports that about 7 hours prior to arrival she was straining to have a bowel movement. States she suddenly started to feel lightheaded and like she was going to pass out. Her assisted her to sit down. States that this lasted for quite some time, possibly up to an hour. Patient states that since that time she has had left lower quadrant pain. States that she thought this was from constipation and has been using an enema. Patient has had diarrhea since that time. She may have had scant amount of bright red blood in the stool. Patient states she feels well at this time aside from abdominal pain. Currently rating the pain a 2 out of 3.Patient has no other complaints at this time including shortness of breath, chest pain, nausea or vomiting, headache, or visual changes. (Nile Ramos) - Related Data Home Medications Medication Instructions Recorded Confirmed Cholecalciferol [Vitamin D3 (25 2,000 unit PO DAILY 05/18/17 03/12/20 Mcg = 1000 Iu)] L.acidoph,Paracasei, B.lactis 1 cap PO DAILY 05/18/17 03/12/20 [Probiotic] Latanoprost Ophth [Xalatan 0.005%] 1 drops BOTH EYES HS 05/18/17 03/12/20 Loratadine [Claritin] 10 mg PO DAILY 06/20/17 03/12/20 lisinopriL [Zestril] 20 mg PO BID 06/20/17 03/12/20 Folic Acid 800 mcg PO DAILY 09/24/17 03/12/20 Albuterol Sulfate [Albuterol 1 puff PO RT-Q6H PRN 03/12/20 03/12/20 Sulfate Hfa] Aspirin [Adult Low Dose Aspirin EC] 81 mg PO DAILY 03/12/20 03/12/20 Calcium Carbonate/Vitamin D3 1 tab PO DAILY 03/12/20 03/12/20 [Calcium 600-Vit D3 800 Caplet] Desvenlafaxine Succinate [Pristiq] 100 mg PO DAILY 03/12/20 03/12/20 Eszopiclone 3 mg PO HS 03/12/20 03/12/20 Fluticasone/Salmeterol [Advair Hfa 2 puff INHALATION RT-BID 03/12/20 03/12/20 230-21 Mcg Inhaler] Levothyroxine Sodium [Synthroid] 88 mcg PO MOTUWETHFRSA 03/12/20 03/12/20 Levothyroxine Sodium [Synthroid] 132 mcg PO AHMADI 03/12/20 03/12/20 Montelukast Sodium [Singulair] 10 mg PO HS 03/12/20 03/12/20 Multivit-Min/Iron/Folic/Lutein 1 tab PO DAILY 03/12/20 03/12/20 [Centrum Silver Women Tablet] Omeprazole 20 mg PO DAILY 03/12/20 03/12/20 QUEtiapine [SEROquel] 100 mg PO HS 03/12/20 03/12/20 Suvorexant [Belsomra] 1 tab PO HS 03/12/20 03/12/20 amLODIPine [Norvasc] 10 mg PO HS 03/12/20 03/12/20 buPROPion HCL [Wellbutrin XL] 300 mg PO DAILY 03/12/20 03/12/20 hydroCHLOROthiazide [Hydrodiuril] 25 mg PO DAILY 03/12/20 03/12/20 lamoTRIgine 100 mg PO HS 03/12/20 03/12/20 Allergies Allergy/AdvReac Type Severity Reaction Status Date / Time morphine AdvReac Confusion Verified 03/12/20 07:49 OPIATES AdvReac Unknown AGITATION Uncoded 03/12/20 07:49 Review of Systems ROS Other: All systems not noted in ROS Statement are negative. <Nile Ramos - Last Filed: 03/11/20 23:23> ROS Other: All systems not noted in ROS Statement are negative. <Olman Power - Last Filed: 03/14/20 07:23> ROS Statement: Those systems with pertinent positive or pertinent negative responses have been documented in the HPI. 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 EGD 06/22/17 Past Anesthesia/Blood Transfusion Reactions: Motion Sickness, Postoperative Nausea & Vomiting (PONV) Past Psychological History: ADD/ADHD, Anxiety, Depression Smoking Status: Former smoker Past Alcohol Use History: Occasional Past Drug Use History: None Reported - Past Family History Mother History Unknown: Yes Family Medical History: Cancer Additional Family Medical History / Comment(s): BLADDER CA- AT 70 YEARS OLD. Father History Unknown: Yes Family Medical History: Coronary Artery Disease (CAD), Myocardial Infarction ([place]) Additional Family Medical History / Comment(s): AT 60 YRS OLD <RachelNile P - Last Filed: 03/11/20 23:23> General Exam Limitations: no limitations General appearance: alert, in no apparent distress Head exam: Present: atraumatic, normocephalic, normal inspection Eye exam: Present: normal appearance, PERRL, EOMI. Absent: scleral icterus, conjunctival injection, periorbital swelling ENT exam: Present: normal exam, mucous membranes moist Neck exam: Present: normal inspection. Absent: tenderness, meningismus, lymphadenopathy Respiratory exam: Present: normal lung sounds bilaterally. Absent: respiratory distress, wheezes, rales, rhonchi, stridor Cardiovascular Exam: Present: regular rate, normal rhythm, normal heart sounds. Absent: systolic murmur, diastolic murmur, rubs, gallop, clicks GI/Abdominal exam: Present: soft, tenderness (Mild tenderness left lower quadrant without guarding or rebound.), normal bowel sounds. Absent: distended, guarding, rebound, rigid <Nile Ramos - Last Filed: 03/11/20 23:23> Course Vital Signs 03/11/20 03/11/20 03/11/20 19:13 21:45 22:28 Temperature 98.1 F 98.1 F Pulse Rate 98 94 89 Respiratory 18 18 18 Rate Blood Pressure 132/90 145/85 145/95 O2 Sat by Pulse 97 98 95 Oximetry EKG Findings - EKG Comments: EKG Findings:: Normal sinus rhythm, ventricular rate 83, IN interval 188, QTC 406 <Nile Ramos - Last Filed: 03/11/20 23:23> Medical Decision Making - Lab Data Result diagrams: 03/11/20 19:49 03/11/20 19:49 <Nile Ramos - Last Filed: 03/11/20 23:23> - Lab Data Result diagrams: 03/13/20 10:07 03/13/20 10:07 <Olman Power - Last Filed: 03/14/20 07:23> - Medical Decision Making Vitals are stable. Patient presents for several complaints including his syncope and abdominal pain. CBC does show leukocytosis. CMP shows evidence of dehydration with hyponatremia. Neck acidosis of 2.1 likely secondary to dehydration. Urinalysis is negative. Occult blood is negative. CT abdomen and pelvis showed descending sigmoid colitis which appears inflammatory/infectious in etiology. Pain is controlled. Patient has reportedly not had a cardiac workup in several years. Patient will be admitted for cardiology consultation and trending troponin for near syncopal episode.. (Nile Ramos) I saw this patient in conjunction with the physician visitor services assistant. I performed independent history and physical exam. Agree with case management. (Olman Power) - Lab Data Lab Results 03/11/20 03/11/20 03/11/20 Range/Units 19:49 19:49 19:49 WBC 14.9 H (3.8-10.6) k/uL RBC 4.74 (3.80-5.40) m/uL Hgb 14.4 (11.4-16.0) gm/dL Hct 44.3 (34.0-46.0) % MCV 93.5 (80.0-100.0) fL MCH 30.4 (25.0-35.0) pg MCHC 32.5 (31.0-37.0) g/dL RDW 12.5 (11.5-15.5) % Plt Count 267 (150-450) k/uL Neutrophils % 91 % Lymphocytes % 4 % Monocytes % 3 % Eosinophils % 2 % Basophils % 0 % Neutrophils # 13.6 H (1.3-7.7) k/uL Lymphocytes # 0.6 L (1.0-4.8) k/uL Monocytes # 0.4 (0-1.0) k/uL Eosinophils # 0.2 (0-0.7) k/uL Basophils # 0.0 (0-0.2) k/uL PT 9.7 (9.0-12.0) sec INR 0.9 (<1.2) APTT 21.3 L (22.0-30.0) sec Sodium (137-145) mmol/L Potassium (3.5-5.1) mmol/L Chloride (98-107) mmol/L Carbon Dioxide (22-30) mmol/L Anion Gap mmol/L BUN (7-17) mg/dL Creatinine (0.52-1.04) mg/dL Est GFR (CKD-EPI)AfAm (>60 ml/min/1.73 sqM) Est GFR (CKD-EPI)NonAf (>60 ml/min/1.73 sqM) Glucose (74-99) mg/dL Lactic Ac Sepsis Rflx Plasma Lactic Acid Ramez (0.7-2.0) mmol/L Calcium (8.4-10.2) mg/dL Total Bilirubin (0.2-1.3) mg/dL AST (14-36) U/L ALT (4-34) U/L Alkaline Phosphatase (38-126) U/L Troponin I (0.000-0.034) ng/mL Total Protein (6.3-8.2) g/dL Albumin (3.5-5.0) g/dL Triglycerides (<150) mg/dL Cholesterol (<200) mg/dL LDL Cholesterol, Calc (0-99) mg/dL HDL Cholesterol (40-60) mg/dL Amylase (30-110) U/L Lipase (23-300) U/L Urine Color Yellow Urine Appearance Clear (Clear) Urine pH 6.0 (5.0-8.0) Ur Specific Shelby 1.035 (1.001-1.035) Urine Protein Negative (Negative) Urine Glucose (UA) Negative (Negative) Urine Ketones Negative (Negative) Urine Blood Negative (Negative) Urine Nitrite Negative (Negative) Urine Bilirubin Negative (Negative) Urine Urobilinogen <2.0 (<2.0) mg/dL Ur Leukocyte Esterase Negative (Negative) Stool Occult Blood (Negative) 03/11/20 03/11/20 03/11/20 Range/Units 19:49 19:49 19:49 WBC (3.8-10.6) k/uL RBC (3.80-5.40) m/uL Hgb (11.4-16.0) gm/dL Hct (34.0-46.0) % MCV (80.0-100.0) fL MCH (25.0-35.0) pg MCHC (31.0-37.0) g/dL RDW (11.5-15.5) % Plt Count (150-450) k/uL Neutrophils % % Lymphocytes % % Monocytes % % Eosinophils % % Basophils % % Neutrophils # (1.3-7.7) k/uL Lymphocytes # (1.0-4.8) k/uL Monocytes # (0-1.0) k/uL Eosinophils # (0-0.7) k/uL Basophils # (0-0.2) k/uL PT (9.0-12.0) sec INR (<1.2) APTT (22.0-30.0) sec Sodium 130 L (137-145) mmol/L Potassium 4.3 (3.5-5.1) mmol/L Chloride 97 L (98-107) mmol/L Carbon Dioxide 21 L (22-30) mmol/L Anion Gap 12 mmol/L BUN 22 H (7-17) mg/dL Creatinine 1.10 H (0.52-1.04) mg/dL Est GFR (CKD-EPI)AfAm 57 (>60 ml/min/1.73 sqM) Est GFR (CKD-EPI)NonAf 50 (>60 ml/min/1.73 sqM) Glucose 157 H (74-99) mg/dL Lactic Ac Sepsis Rflx Plasma Lactic Acid Ramez 2.1 H* (0.7-2.0) mmol/L Calcium 10.3 H (8.4-10.2) mg/dL Total Bilirubin 0.6 (0.2-1.3) mg/dL AST 33 (14-36) U/L ALT 21 (4-34) U/L Alkaline Phosphatase 203 H (38-126) U/L Troponin I <0.012 (0.000-0.034) ng/mL Total Protein 7.7 (6.3-8.2) g/dL Albumin 4.7 (3.5-5.0) g/dL Triglycerides (<150) mg/dL Cholesterol (<200) mg/dL LDL Cholesterol, Calc (0-99) mg/dL HDL Cholesterol (40-60) mg/dL Amylase 276 H (30-110) U/L Lipase 157 (23-300) U/L Urine Color Urine Appearance (Clear) Urine pH (5.0-8.0) Ur Specific [place] (1.001-1.035) Urine Protein (Negative) Urine Glucose (UA) (Negative) Urine Ketones (Negative) Urine Blood (Negative) Urine Nitrite (Negative) Urine Bilirubin (Negative) Urine Urobilinogen (<2.0) mg/dL Ur Leukocyte Esterase (Negative) Stool Occult Blood (Negative) 03/11/20 03/11/20 03/11/20 Range/Units 20:25 21:45 22:40 WBC (3.8-10.6) k/uL RBC (3.80-5.40) m/uL Hgb (11.4-16.0) gm/dL Hct (34.0-46.0) % MCV (80.0-100.0) fL MCH (25.0-35.0) pg MCHC (31.0-37.0) g/dL RDW (11.5-15.5) % Plt Count (150-450) k/uL Neutrophils % % Lymphocytes % % Monocytes % % Eosinophils % % Basophils % % Neutrophils # (1.3-7.7) k/uL Lymphocytes # (1.0-4.8) k/uL Monocytes # (0-1.0) k/uL Eosinophils # (0-0.7) k/uL Basophils # (0-0.2) k/uL PT (9.0-12.0) sec INR (<1.2) APTT (22.0-30.0) sec Sodium (137-145) mmol/L Potassium (3.5-5.1) mmol/L Chloride (98-107) mmol/L Carbon Dioxide (22-30) mmol/L Anion Gap mmol/L BUN (7-17) mg/dL Creatinine (0.52-1.04) mg/dL Est GFR (CKD-EPI)AfAm (>60 ml/min/1.73 sqM) Est GFR (CKD-EPI)NonAf (>60 ml/min/1.73 sqM) Glucose (74-99) mg/dL Lactic Ac Sepsis Rflx Y Plasma Lactic Acid Ramez 0.9 (0.7-2.0) mmol/L Calcium (8.4-10.2) mg/dL Total Bilirubin (0.2-1.3) mg/dL AST (14-36) U/L ALT (4-34) U/L Alkaline Phosphatase (38-126) U/L Troponin I (0.000-0.034) ng/mL Total Protein (6.3-8.2) g/dL Albumin (3.5-5.0) g/dL Triglycerides (<150) mg/dL Cholesterol (<200) mg/dL LDL Cholesterol, Calc (0-99) mg/dL HDL Cholesterol (40-60) mg/dL Amylase (30-110) U/L Lipase (23-300) U/L Urine Color Urine Appearance (Clear) Urine pH (5.0-8.0) Ur Specific [place] (1.001-1.035) Urine Protein (Negative) Urine Glucose (UA) (Negative) Urine Ketones (Negative) Urine Blood (Negative) Urine Nitrite (Negative) Urine Bilirubin (Negative) Urine Urobilinogen (<2.0) mg/dL Ur Leukocyte Esterase (Negative) Stool Occult Blood Negative (Negative) 03/11/20 03/12/20 03/12/20 Range/Units 23:42 02:33 02:33 WBC (3.8-10.6) k/uL RBC (3.80-5.40) m/uL Hgb (11.4-16.0) gm/dL Hct (34.0-46.0) % MCV (80.0-100.0) fL MCH (25.0-35.0) pg MCHC (31.0-37.0) g/dL RDW (11.5-15.5) % Plt Count (150-450) k/uL Neutrophils % % Lymphocytes % % Monocytes % % Eosinophils % % Basophils % % Neutrophils # (1.3-7.7) k/uL Lymphocytes # (1.0-4.8) k/uL Monocytes # (0-1.0) k/uL Eosinophils # (0-0.7) k/uL Basophils # (0-0.2) k/uL PT (9.0-12.0) sec INR (<1.2) APTT (22.0-30.0) sec Sodium (137-145) mmol/L Potassium (3.5-5.1) mmol/L Chloride (98-107) mmol/L Carbon Dioxide (22-30) mmol/L Anion Gap mmol/L BUN (7-17) mg/dL Creatinine (0.52-1.04) mg/dL Est GFR (CKD-EPI)AfAm (>60 ml/min/1.73 sqM) Est GFR (CKD-EPI)NonAf (>60 ml/min/1.73 sqM) Glucose (74-99) mg/dL Lactic Ac Sepsis Rflx Plasma Lactic Acid Ramez (0.7-2.0) mmol/L Calcium (8.4-10.2) mg/dL Total Bilirubin (0.2-1.3) mg/dL AST (14-36) U/L ALT (4-34) U/L Alkaline Phosphatase (38-126) U/L Troponin I <0.012 <0.012 (0.000-0.034) ng/mL Total Protein (6.3-8.2) g/dL Albumin (3.5-5.0) g/dL Triglycerides 60 (<150) mg/dL Cholesterol 200 H (<200) mg/dL LDL Cholesterol, Calc 106 H (0-99) mg/dL HDL Cholesterol 82 H (40-60) mg/dL Amylase (30-110) U/L Lipase (23-300) U/L Urine Color Urine Appearance (Clear) Urine pH (5.0-8.0) Ur Specific [place] (1.001-1.035) Urine Protein (Negative) Urine Glucose (UA) (Negative) Urine Ketones (Negative) Urine Blood (Negative) Urine Nitrite (Negative) Urine Bilirubin (Negative) Urine Urobilinogen (<2.0) mg/dL Ur Leukocyte Esterase (Negative) Stool Occult Blood (Negative) Disposition Is patient prescribed a controlled substance at d/c from ED?: No Time of Disposition: 23:20 <Nile Ramos - Last Filed: 03/11/20 23:23> <Olman Power - Last Filed: 03/14/20 07:23> Clinical Impression: Near syncope, Abdominal pain, Dehydration, Colitis Disposition: ADMITTED IP TO THIS HOSP Condition: Fair
[2020-03-11 20:00] LABS: Basophils % (A) 0 %; Eosinophils # (A) 0.2 k/uL (0-0.7); Eosinophils % (A) 2 %; HCT 44.3 % (34.0-46.0); HGB 14.4 gm/dL (11.4-16.0); Lymphocytes # (A) 0.6 k/uL (1.0-4.8); Lymphocytes % (A) 4 %; MCH 30.4 pg (25.0-35.0); MCHC 32.5 g/dL (31.0-37.0); MCV 93.5 fL (80.0-100.0); Mean Platelet Volume 8.7; Monocytes # (A) 0.4 k/uL (0-1.0); Monocytes % (A) 3 %; Neutrophils # (A) 13.6 k/uL (1.3-7.7); Neutrophils % (A) 91 %; Platelet Count 267 k/uL (150-450); RBC 4.74 m/uL (3.80-5.40); RDW 12.5 % (11.5-15.5); WBC 14.9 k/uL (3.8-10.6)
[2020-03-11 20:09] LABS: Albumin 4.7 g/dL (3.5-5.0); Calcium 10.3 mg/dL (8.4-10.2); Potassium 4.3 mmol/L (3.5-5.1); Total Bilirubin 0.6 mg/dL (0.2-1.3); Total Protein 7.7 g/dL (6.3-8.2)
[2020-03-11 20:21] LABS: INR 0.9 (<1.2); Partial Thromboplastin Time 21.3 sec (22.0-30.0); Prothrombin Time 9.7 sec (9.0-12.0)
--- NOTE | 2020-03-11 21:26 | CT ---
EXAMINATION TYPE: CT abdomen pelvis w con DATE OF EXAM: 03/11/2020 COMPARISON: None HISTORY: Left lower quadrant abdominal pain. CT DLP: 1000.1 mGycm Automated exposure control for dose reduction was used. TECHNIQUE: Helical acquisition of images was performed from the lung bases through the pelvis. CONTRAST: Performed without Oral Contrast and with IV Contrast, patient injected with 80ml mL of Isov ue 300. FINDINGS: LUNG BASES: No acute findings. LIVER/GB: The intrahepatic and intrahepatic biliary tree appears dilated in caliber, but the patient is postcholecystectomy. For significance, please refer to bilirubin alkaline phosphatase levels. No f ocal liver lesions. PANCREAS: No significant abnormality is seen. SPLEEN: No significant abnormality is seen. ADRENALS: No significant abnormality is seen. KIDNEYS: No significant abnormality is seen. RETROPERITONEAL ADENOPATHY: None visualized REPRODUCTIVE ORGANS: No significant abnormality is seen URINARY BLADDER: No significant abnormality is seen. PELVIC ADENOPATHY: None visualized. OSSEOUS STRUCTURES: No definite acute process, but heterogeneous bone marrow pattern noted. BOWEL: The descending colon and sigmoid show circumferential mild/moderate mural thickening with mil d indistinctness and pericolonic edematous reticulation. These changes are consistent with acute mild /moderate colitis, etiology likely inflammatory/infectious. There is prominent colonic redundancy wit h prominent gas-distended transverse colon. The transverse colon does not demonstrate mural thickenin g and the transverse mesocolon is unremarkable.There is no extraluminal gas. PERITONEAL CAVITY: No pneumoperitoneum or peritoneal fluid. OTHER: No acute vascular findings. However, marked nonaneurysmal atherosclerotic intimal calcificatio ns are seen throughout the arterial vasculature. IMPRESSION: DESCENDING/SIGMOID COLITIS PATTERN, WHICH APPEARS INFLAMMATORY/INFECTIOUS IN ETIOLOGY.
[2020-03-11 22:33] LABS: Appearance,Urine Clear (Clear); Bilirubin,Urine Negative (Negative); Blood,Urine Negative (Negative); Color,Urine Yellow; Glucose,Urine (UA) Negative (Negative); Ketones,Urine Negative (Negative); Leukocyte Esterase,Urine Negative (Negative); Nitrite,Urine Negative (Negative); Protein,Urine Negative (Negative); Specific Gravity,Urine 1.035 (1.001-1.035); Urobilinogen,Urine <2.0 mg/dL (<2.0)
[2020-03-11] MEDS ORDERED: NITROGLYCERIN SL TABS 0.4 MG TAB SUBLINGUAL PRN (23:20)
[2020-03-12 03:12] LABS: Cholesterol 200 mg/dL (<200); HDL Cholesterol 82 mg/dL (40-60); LDL Cholesterol,Calculated 106 mg/dL (0-99); Triglycerides 60 mg/dL (<150)
[2020-03-12] MEDS ORDERED: ASPIRIN 325 MG TAB PO SCH (09:00)
[2020-03-12] MEDS ORDERED: ALBUTEROL NEBULIZED 2.5 MG/3 ML INHALATION PRN (09:11)
[2020-03-12] MEDS ORDERED: ASPIRIN 81 MG PO SCH (09:15)
--- NOTE | 2020-03-12 09:41 | P.CRDCN ---
History of Present Illness Consult date: 03/12/20 Reason for Consult (text): Near syncope History of present illness: HISTORY OF PRESENTING ILLNESS This is a pleasant 74-year-old female with past medical history of multiple orthopedic issues with 4 prior hip surgeries, knee surgeries, peripheral neuropathy, hypertension who presents secondary to a near syncopal episode. She follows in the office with Dr. BARON Gilman. We have been asked to see in consultation for near syncope. She admits she had been feeling well until last night when she felt like she needed to have a bowel movement. She does have some issues with multiple prior abdominal surgeries. She was sitting down and feeling like she needed to go the bathroom with abdominal pain and then felt very lightheaded. She denies prior similar episodes in the past. She did not actually pass out however almost stated. She therefore called life alert however did not actually go into the emergency department when EMS came. She tr ied to have her gave her an enema which sounded like this did not work with some trauma. She sentences noticed some blood in her stool since the enema. She denies any fevers, chills, cough. She denies any associated shortness breath, palpitations, chest pain or pressure. She had workup in the emergency department which showed CAT scan with concern of colitis. She believes it has been a few years since she had an echocardiogram or stress test. She does not regularly see Dr. Gilman and it has been a few years. DIAGNOSTICS EKG reveals normal sinus rhythm, normal axis, T-wave flattening in [address] of the abdomen and pelvis showed descending and sigmoid colitis Laboratory reviewed, white blood cell count 14.9, hemoglobin 14.4, sodium 1:30, creatinine 1.1, lactic acid 2.1. Troponin negative 3 Home medications include lisinopril 20 mg daily, hydrochlorothiazide 25 mg daily , amlodipine 10 mg daily, aspirin 81 mg daily REVIEW OF SYSTEMS At the time of my exam: CONSTITUTIONAL: Denies fever or chills. CARDIOVASCULAR: Denies chest pain, shortness of breath, orthopnea, PND or palpitations. RESPIRATORY: Denies cough. GASTROINTESTINAL:+ abdominal pain, no diarrhea, +constipation, no nausea or vomiting. MUSCULOSKELETAL: Denies myalgias. NEUROLOGIC: +numbness, no tingling or weakness. ENDOCRINE: Denies fatigue, weight change, polydipsia or polyurina. GENITOURINARY: Denies burning, hematuria or urgency with micturation. HEMATOLOGIC: Denies history of anemia or bleeding. PHYSICAL EXAMINATION Blood pressure 120/80 with prior being 113/73 heart rate 92 afebrile and ma intaining oxygen saturation on room air. CONSTITUTIONAL: No apparent distress. HEENT: Head is normocephalic. Pupils are equal, round. Sclerae anicteric. Mucous membranes of the mouth are moist. No JVD. No carotid bruit. CHEST EXAMINATION: Lungs are clear to auscultation. No chest wall tenderness is noted on palpation or with deep breathing. HEART EXAMINATION: Regular rate and rhythm. S1, S2 heard. No murmurs, gallops or rub. ABDOMEN: Soft, +tender. Positive bowel sounds. EXTREMITIES: 2+ peripheral pulses, no lower extremity edema and no calf tenderness. NEUROLOGIC EXAMINATION: Patient is awake, alert and oriented x3. ASSESSMENT 1. Near syncopal episode likely related to vasovagal episode while having the urge to have a bowel movement and abdominal pain. 2. Hypertension with borderline low blood pressures currently 3. Hyponatremia 4. Colitis by CT 5. Peripheral neuropathy 6. Leukocytosis PLAN Patient's symptoms appear most consistent with a vasovagal episode as she was having the urge to have a bowel movement with abdominal pain. Likely exacerbated by what appears to be colitis with leukocytosis and CT findings. We will continue to monitor on telemetry however no significant bradyarrhythmias. We will check a 2-D echo to rule out valvular heart disease and to assess LV function. If echo normal, patient clear for discharge from cardiac standpoint with follow-up with Dr. Gilman. Patient does have borderline low blood pressures and hyponatremia without complaints of decreased PO intake. Would recommend hold hydrochlorothiazide at this time and reassess blood pressure in the office in one week. 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 EGD 06/22/17 Past Anesthesia/Blood Transfusion Reactions: Motion Sickness, Postoperative Nausea & Vomiting (PONV) Past Psychological History: ADD/ADHD, Anxiety, Depression Additional Psychological History / Comment(s): 09/14/17: Pt states she has recenlty been dx with depression and panic attacks and it is "not pretty." PT recently admitted on 05/18/17 with bipolar, ADHD, generalized anxiety, impulsive overdose of ambien d/t difficulty sleeping, PAST INTENTIONAL OVERDOSE ATTEMPT 12/02/2014-(PREVIOUSLY RECORDED THAT SHE THOUGHT SHE HAD ALZHEIMERS). Pt resides with her spouse. Pt is normally independent. Pt's spouse is uncertain if this was an accidental overdose or not, he wants pt to be admitted to psychiatric floor once stable. He has cancelled their upcoming vacation to [facility]. Smoking Status: Former smoker Past Alcohol Use History: Occasional Additional Past Alcohol Use History / Comment(s): QUIT SMOKING 1978. SMOKED 1PPD. SMOKED FOR 20 YEARS. Past Drug Use History: None Reported - Past Family History Mother History Unknown: Yes Family Medical History: Cancer Additional Family Medical History / Comment(s): BLADDER CA- AT 70 YEARS OLD. Father History Unknown: Yes Family Medical History: Coronary Artery Disease (CAD), Myocardial Infarction (GA) Additional Family Medical History / Comment(s): AT 60 YRS OLD Medications and Allergies Home Medications Medication Instructions Recorded Confirmed Type Cholecalciferol [Vitamin D3 (25 2,000 unit PO DAILY 05/18/17 03/12/20 History Mcg = 1000 Iu)] L.acidoph,Paracasei, B.lactis 1 cap PO DAILY 05/18/17 03/12/20 History [Probiotic] Latanoprost Ophth [Xalatan 0.005%] 1 drops BOTH EYES HS 05/18/17 03/12/20 History Loratadine [Claritin] 10 mg PO DAILY 06/20/17 03/12/20 History lisinopriL [Zestril] 20 mg PO BID 06/20/17 03/12/20 History Folic Acid 800 mcg PO DAILY 09/24/17 03/12/20 History Albuterol Sulfate [Albuterol 1 puff PO RT-Q6H PRN 03/12/20 03/12/20 History Sulfate Hfa] Aspirin [Adult Low Dose Aspirin EC] 81 mg PO DAILY 03/12/20 03/12/20 History Calcium Carbonate/Vitamin D3 1 tab PO DAILY 03/12/20 03/12/20 History [Calcium 600-Vit D3 800 Caplet] Desvenlafaxine Succinate [Pristiq] 100 mg PO DAILY 03/12/20 03/12/20 History Eszopiclone 3 mg PO HS 03/12/20 03/12/20 History Fluticasone/Salmeterol [Advair Hfa 2 puff INHALATION RT-BID 03/12/20 03/12/20 History 230-21 Mcg Inhaler] Levothyroxine Sodium [Synthroid] 88 mcg PO MOTUWETHFRSA 03/12/20 03/12/20 History Levothyroxine Sodium [Synthroid] 132 mcg PO AHMADI 03/12/20 03/12/20 History Montelukast Sodium [Singulair] 10 mg PO HS 03/12/20 03/12/20 History Multivit-Min/Iron/Folic/Lutein 1 tab PO DAILY 03/12/20 03/12/20 History [Centrum Silver Women Tablet] Omeprazole 20 mg PO DAILY 03/12/20 03/12/20 History QUEtiapine [SEROquel] 100 mg PO HS 03/12/20 03/12/20 History amLODIPine [Norvasc] 10 mg PO HS 03/12/20 03/12/20 History buPROPion HCL [Wellbutrin XL] 300 mg PO DAILY 03/12/20 03/12/20 History hydroCHLOROthiazide [Hydrodiuril] 25 mg PO DAILY 03/12/20 03/12/20 History lamoTRIgine 100 mg PO HS 03/12/20 03/12/20 History Allergies Allergy/AdvReac Type Severity Reaction Status Date / Time morphine AdvReac Confusion Verified 03/12/20 07:49 OPIATES AdvReac Unknown AGITATION Uncoded 03/12/20 07:49 Physical Exam Vitals: Vital Signs Temp Pulse Pulse Pulse Pulse Pulse Resp 03/12/20 08:36 99 F 101 H 101 H 92 20 03/12/20 03:00 98.2 F 93 18 03/11/20 23:56 98.0 F 85 18 03/11/20 22:28 89 18 03/11/20 21:45 98.1 F 94 18 03/11/20 19:13 98.1 F 98 18 BP BP BP BP BP Pulse Ox 03/12/20 08:36 120/80 98/65 106/69 93 L 03/12/20 03:00 113/73 93 L 03/11/20 23:56 96 03/11/20 22:28 145/95 95 03/11/20 21:45 145/85 98 03/11/20 19:13 132/90 97 Intake and Output 03/11/20 03/12/20 03/12/20 22:59 06:59 14:59 Other: Voiding Method Toilet # Voids 1 Weight 68.039 kg 68.039 kg Results 03/11/20 19:49 03/11/20 19:49 Cardiac Enzymes 03/11/20 03/11/20 03/11/20 Range/Units 19:49 19:49 23:42 AST 33 (14-36) U/L Troponin I <0.012 <0.012 (0.000-0.034) ng/mL 03/12/20 Range/Units 02:33 AST (14-36) U/L Troponin I <0.012 (0.000-0.034) ng/mL Coagulation 03/11/20 Range/Units 19:49 PT 9.7 (9.0-12.0) sec APTT 21.3 L (22.0-30.0) sec Lipids 03/12/20 Range/Units 02:33 Triglycerides 60 (<150) mg/dL Cholesterol 200 H (<200) mg/dL HDL Cholesterol 82 H (40-60) mg/dL CBC 03/11/20 Range/Units 19:49 WBC 14.9 H (3.8-10.6) k/uL RBC 4.74 (3.80-5.40) m/uL Hgb 14.4 (11.4-16.0) gm/dL Hct 44.3 (34.0-46.0) % Plt Count 267 (150-450) k/uL Comprehensive Metabolic Panel 03/11/20 Range/Units 19:49 Sodium 130 L (137-145) mmol/L Potassium 4.3 (3.5-5.1) mmol/L Chloride 97 L (98-107) mmol/L Carbon Dioxide 21 L (22-30) mmol/L BUN 22 H (7-17) mg/dL Creatinine 1.10 H (0.52-1.04) mg/dL Glucose 157 H (74-99) mg/dL Calcium 10.3 H (8.4-10.2) mg/dL AST 33 (14-36) U/L ALT 21 (4-34) U/L Alkaline Phosphatase 203 H (38-126) U/L Total Protein 7.7 (6.3-8.2) g/dL Albumin 4.7 (3.5-5.0) g/dL Current Medications Generic Name Dose Route Start Last Admin Trade Name Freq PRN Reason Stop Dose Admin Albuterol Sulfate 2.5 mg 03/12/20 09:11 Ventolin Nebulized INHALATION RT-Q6H PRN Shortness Of Breath Aspirin 81 mg 03/12/20 09:15 Aspirin PO DAILY [facility] Budesonide/Formoterol Fumarate 2 puff 03/12/20 20:00 Symbicort 160-4.5 Mcg Inhaler INHALATION RT-BID [facility] Bupropion HCl 300 mg 03/12/20 09:15 Wellbutrin Xl PO DAILY [facility] Calcium Carbonate 1 each 03/12/20 09:15 Oscal 500+D PO DAILY [facility] Cholecalciferol 2,000 unit 03/12/20 09:15 Vitamin D3 (25 Mcg = 1000 Iu) PO DAILY [facility] Desvenlafaxine Succinate 100 mg 03/12/20 09:15 Pristiq Er PO DAILY [facility] Folic Acid 1 mg 03/12/20 09:15 Folic Acid PO DAILY [facility] Lactobacillus Acidoph/Bulgaricus 1 each 03/12/20 09:15 Lactinex PO DAILY [facility] Lamotrigine 100 mg 03/12/20 21:00 Lamictal PO HS [facility] Latanoprost 1 drops 03/12/20 21:00 Xalatan 0.005% BOTH EYES HS [facility] Levothyroxine Sodium 88 mcg 03/12/20 09:15 Synthroid PO [id number] [facility] Levothyroxine Sodium 132 mcg 03/14/20 06:30 Synthroid PO AHMADI [facility] Lisinopril 20 mg 03/12/20 09:15 Zestril PO BID [facility] Loratadine 10 mg 03/12/20 09:15 Claritin PO DAILY [facility] Montelukast Sodium 10 mg 03/12/20 21:00 Singulair PO HS [facility] Multivitamins 1 each 03/12/20 09:15 Theragran PO DAILY [facility] Nitroglycerin 0.4 mg 03/11/20 23:20 Nitrostat SUBLINGUAL Q5M PRN Chest Pain Pantoprazole Sodium 40 mg 03/12/20 09:15 Protonix PO AC-BRKFST [facility] Quetiapine Fumarate 100 mg 03/12/20 21:00 Seroquel PO HS [facility] Temazepam 15 mg 03/12/20 21:00 Restoril PO HS [facility] Intake and Output 03/11/20 03/12/20 03/12/20 22:59 06:59 14:59 Other: Voiding Method Toilet # Voids 1 Weight 68.039 kg 68.039 kg 03/11/20 19:49 03/11/20 19:49
[2020-03-12] MEDS: DESVENLAFAXINE SUCCINATE 50 MG TAB.ER.24H PO SCH (10:44)
[2020-03-12] MEDS: buPROPion XL 300 MG TAB.ER.24H PO SCH (10:44)
[2020-03-12] MEDS: LEVOTHYROXINE 88 MCG TAB PO SCH (10:45)
[2020-03-12] MEDS: CHOLECALCIFEROL 1,000 UNIT TAB PO SCH (10:53)
[2020-03-12] MEDS: LORATADINE 10 MG TAB PO SCH (10:53)
[2020-03-12] MEDS: FOLIC ACID 1 MG TAB PO SCH (10:53)
[2020-03-12] MEDS: CALCIUM CARB-VIT D 500MG-200UN 1 EACH TAB PO SCH (10:53)
[2020-03-12] MEDS: lisinopriL 20 MG TAB PO SCH ×2 (10:53→20:31)
[2020-03-12] MEDS: PANTOPRAZOLE 40 MG TABLET PO SCH (10:53)
[2020-03-12] MEDS: SODIUM CHLORIDE 0.9% 1,000 ML IV SCH ×2 (10:54→20:31)
[2020-03-12] MEDS: PIPERACILLIN-TAZOBACTAM 3.375 GM in SODIUM CHLORIDE 0.9% 100 ML IVPB SCH ×3 (10:57→23:31)
--- NOTE | 2020-03-12 11:56 | ECHOF ---
Referral Reason:near syncope MEASUREMENTS -------- HEIGHT: 157.5 cm WEIGHT: 68.0 kg BP: 106/69 RVIDd: 2.8 cm (< 3.3) IVSd: 1.1 cm (0.6 - 1.1) LVIDd: 4.0 cm (3.9 - 5.3) LVPWd: 1.1 cm (0.6 - 1.1) IVSs: 1.5 cm LVIDs: 2.8 cm LVPWs: 1.5 cm LA Diam: 3.7 cm (2.7 - 3.8) LAESV Index (A-L): 24.71 ml/m Ao Diam: 2.9 cm (2.0 - 3.7) AV Cusp: 1.7 cm (1.5 - 2.6) MV EXCURSION: 11.892 mm (> 18.000) MV EF SLOPE: 35 mm/s (70 - 150) EPSS: 0.2 cm MV E Alen: 1.00 m/s MV DecT: 153 ms MV A Alen: 0.86 m/s MV E/A Ratio: 1.17 RAP: 5.00 mmHg RVSP: 33.06 mmHg FINDINGS -------- Sinus rhythm. This was a technically adequate study. The left ventricular size is normal. There is borderline concentric left ventricular hypertrophy. Overall left ventricular systolic function is normal with, an EF between 60 - 65 %. The right ventricle is normal in size. Normal LA size by volume 22+/-6 ml/m2. The right atrium is normal in size. Interatrial and interventricular septum intact. The aortic valve is trileaflet and appears structurally normal. The mitral valve is normal. Mild tricuspid regurgitation present. There is no evidence of pulmonary hypertension. The right v entricular systolic pressure, as measured by Doppler, is 33.06mmHg. The pulmonic valve was not well visualized. The aortic root size is normal. IVC Not well visulized. There is no pericardial effusion. CONCLUSIONS -------- 1. The left ventricular size is normal. 2. There is borderline concentric left ventricular hypertrophy. 3. Overall left ventricular systolic function is normal with, an EF between 60 - 65 %. 4. Mild tricuspid regurgitation present. 5. The right ventricular systolic pressure, as measured by Doppler, is 33.06mmHg. 6. There is no pericardial effusion. INSTRUMENT LENS INSPECTOR: TRACEE Madsen
[2020-03-12] MEDS: MULTIVITAMINS, THERA 1 EACH TAB PO SCH (12:40)
[2020-03-12] MEDS: LACTOBACILLUS ACIDOPH & BULGAR 1 EACH PACKET PO SCH (12:40)
[2020-03-12] MEDS ORDERED: traMADol 50 MG TAB PO PRN (13:37)
[2020-03-12] MEDS ORDERED: KETOROLAC 15 MG/ML 1 ML VIAL IVP SCH (14:30)
[2020-03-12] MEDS: KETOROLAC 15 MG/ML 1 ML VIAL IVP PRN ×2 (14:57→20:38)
--- NOTE | 2020-03-12 15:56 | P.GSCN ---
History of Present Illness Consult date: 03/12/20 History of present illness: CHIEF COMPLAINT: Abdominal pain HISTORY OF PRESENT ILLNESS: This is a 74-year-old female with a known history of lap band surgery, cholecystectomy, appendectomy, panniculectomy. Also history of asthma, GERD, hypertension, osteoporosis arthritis, hypothyroidism and benign monoclonal gammopathy. Patient presents to the emergency room with complaints of abdominal pain. Patient reports that about 7 hours prior to arrival to ER she was having us draining to have a bowel movement. She felt lightheaded and thought she was going to pass out. She reports that the pain with the left lower quadrant. She was having issues with constipation and used an enema. Then she had some diarrhea. There was scant amount of bright red blood reported in stool. She denies any fever, chills, sweats nausea or vomiting. Computed tomography scan of the abdomen and pelvis showing sigmoid colitis. And therefore surgical consult was placed. Cardiology is also following due to a near syncopal episode. Please note patient was seen and examined with Dr. Fried. PAST MEDICAL HISTORY: See list. PAST SURGICAL HISTORY: See list. MEDICATIONS: See list. ALLERGIES: See list. SOCIAL HISTORY: No illicit drug use. REVIEW OF SYSTEMS: CONSTITUTIONAL: Denies fever or chills. HEENT: Denies blurred vision, vision changes, or eye pain. Denies hemoptysis CARDIOVASCULAR: Denies chest pain or pressure. RESPIRATORY: No shortness of breath. GASTROINTESTINAL: See HPI for pertinent findings HEMATOLOGIC: Denies bleeding disorders. GENITOURINARY: Denies any blood in urine or increased urinary frequency. SKIN: Denies pruitis. Denies rash. PHYSICAL EXAM: VITAL SIGNS: Reviewed GENERAL: Well-developed in no acute distress. HEENT: No sclera icterus. Extraocular movements grossly intact. Moist buccal mucosa. Head is atraumatic, normocephalic. No nasal drainage. ABDOMEN: Soft. Nondistended. NEUROLOGIC: Alert and oriented. Cranial nerves II through XII grossly intact. LABORATORY DATA: WBC 14.9 hemoglobin 14.4 creatinine 1.10 lactic 2.1 stool for occult blood negative UA negative AST 33 ALT 21 IMAGING: CT abdomen descending/sigmoid colon colitis pattern which appears inflammatory or infectious in etiology ASSESSMENT: 1. Acute sigmoid colitis 2. Near syncope followed by cardiology 3. History of multiple abdominal surgeries 4. Essential hypertension 5. Hypothyroidism PLAN: -Conservative management. No surgical intervention needed -Continue clear liquid diet -Continue IV Zosyn -Continue IV fluids Thank you for this consultation. Physician Dough Cutting Machine Operator note has been reviewed by physician. Signing provider agrees with the documented findings, assessment, and plan of care. 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 EGD 06/22/17 Past Anesthesia/Blood Transfusion Reactions: Motion Sickness, Postoperative Naus ea & Vomiting (PONV) Past Psychological History: ADD/ADHD, Anxiety, Depression Additional Psychological History / Comment(s): 09/14/17: Pt states she has recenlty been dx with depression and panic attacks and it is "not pretty." PT recently admitted on 05/18/17 with bipolar, ADHD, generalized anxiety, impulsive overdose of ambien d/t difficulty sleeping, PAST INTENTIONAL OVERDOSE ATTEMPT 12/02/2014-(PREVIOUSLY RECORDED THAT SHE THOUGHT SHE HAD ALZHEIMERS). Pt resides with her spouse. Pt is normally independent. Pt's spouse is uncertain if this was an accidental overdose or not, he wants pt to be admitted to psychiatric floor once stable. He has cancelled their upcoming vacation to [facility]. Smoking Status: Former smoker Past Alcohol Use History: Occasional Additional Past Alcohol Use History / Comment(s): QUIT SMOKING 1978. SMOKED 1PPD. SMOKED FOR 20 YEARS. Past Drug Use History: None Reported - Past Family History Mother History Unknown: Yes Family Medical History: Cancer Additional Family Medical History / Comment(s): BLADDER CA- AT 70 YEARS OLD. Father History Unknown: Yes Family Medical History: Coronary Artery Disease (CAD), Myocardial Infarction (GA) Additional Family Medical History / Comment(s): AT 60 YRS OLD Medications and Allergies Home Medications Medication Instructions Recorded Confirmed Type Cholecalciferol [Vitamin D3 (25 2,000 unit PO DAILY 05/18/17 03/12/20 History Mcg = 1000 Iu)] L.acidoph,Paracasei, B.lactis 1 cap PO DAILY 05/18/17 03/12/20 History [Probiotic] Latanoprost Ophth [Xalatan 0.005%] 1 drops BOTH EYES HS 05/18/17 03/12/20 Histo ry Loratadine [Claritin] 10 mg PO DAILY 06/20/17 03/12/20 History lisinopriL [Zestril] 20 mg PO BID 06/20/17 03/12/20 History Folic Acid 800 mcg PO DAILY 09/24/17 03/12/20 History Albuterol Sulfate [Albuterol 1 puff PO RT-Q6H PRN 03/12/20 03/12/20 History Sulfate Hfa] Aspirin [Adult Low Dose Aspirin EC] 81 mg PO DAILY 03/12/20 03/12/20 History Calcium Carbonate/Vitamin D3 1 tab PO DAILY 03/12/20 03/12/20 History [Calcium 600-Vit D3 800 Caplet] Desvenlafaxine Succinate [Pristiq] 100 mg PO DAILY 03/12/20 03/12/20 History Eszopiclone 3 mg PO HS 03/12/20 03/12/20 History Fluticasone/Salmeterol [Advair Hfa 2 puff INHALATION RT-BID 03/12/20 03/12/20 History 230-21 Mcg Inhaler] Levothyroxine Sodium [Synthroid] 88 mcg PO MOTUWETHFRSA 03/12/20 03/12/20 History Levothyroxine Sodium [Synthroid] 132 mcg PO AHMADI 03/12/20 03/12/20 History Montelukast Sodium [Singulair] 10 mg PO HS 03/12/20 03/12/20 History Multivit-Min/Iron/Folic/Lutein 1 tab PO DAILY 03/12/20 03/12/20 History [Centrum Silver Women Tablet] Omeprazole 20 mg PO DAILY 03/12/20 03/12/20 History QUEtiapine [SEROquel] 100 mg PO HS 03/12/20 03/12/20 History Suvorexant [Belsomra] 1 tab PO HS 03/12/20 03/12/20 History amLODIPine [Norvasc] 10 mg PO HS 03/12/20 03/12/20 History buPROPion HCL [Wellbutrin XL] 300 mg PO DAILY 03/12/20 03/12/20 History hydroCHLOROthiazide [Hydrodiuril] 25 mg PO DAILY 03/12/20 03/12/20 History lamoTRIgine 100 mg PO HS 03/12/20 03/12/20 History Allergies Allergy/AdvReac Type Severity Reaction Status Date / Time morphine AdvReac Confusion Verified 03/12/20 07:49 OPIATES AdvReac Unknown AGITATION Uncoded 03/12/20 07:49 Surgical - Exam Vital Signs Temp Pulse Resp BP Pulse Ox 98.1 F 98 18 132/90 97 03/11/20 19:13 03/11/20 19:13 03/11/20 19:13 03/11/20 19:13 03/11/20 19:13 Results - Labs 03/11/20 19:49 03/11/20 19:49 Abnormal Lab Results - Last 24 Hours (Table) 03/11/20 03/11/20 03/11/20 Range/Units 19:49 19:49 19:49 WBC 14.9 H (3.8-10.6) k/uL Neutrophils # 13.6 H (1.3-7.7) k/uL Lymphocytes # 0.6 L (1.0-4.8) k/uL APTT 21.3 L (22.0-30.0) sec Sodium 130 L (137-145) mmol/L Chloride 97 L (98-107) mmol/L Carbon Dioxide 21 L (22-30) mmol/L BUN 22 H (7-17) mg/dL Creatinine 1.10 H (0.52-1.04) mg/dL Glucose 157 H (74-99) mg/dL Plasma Lactic Acid Ramez (0.7-2.0) mmol/L Calcium 10.3 H (8.4-10.2) mg/dL Alkaline Phosphatase 203 H (38-126) U/L Cholesterol (<200) mg/dL LDL Cholesterol, Calc (0-99) mg/dL HDL Cholesterol (40-60) mg/dL Amylase 276 H (30-110) U/L 03/11/20 03/12/20 Range/Units 19:49 02:33 WBC (3.8-10.6) k/uL Neutrophils # (1.3-7.7) k/uL Lymphocytes # (1.0-4.8) k/uL APTT (22.0-30.0) sec Sodium (137-145) mmol/L Chloride (98-107) mmol/L Carbon Dioxide (22-30) mmol/L BUN (7-17) mg/dL Creatinine (0.52-1.04) mg/dL Glucose (74-99) mg/dL Plasma Lactic Acid Ramez 2.1 H* (0.7-2.0) mmol/L Calcium (8.4-10.2) mg/dL Alkaline Phosphatase (38-126) U/L Cholesterol 200 H (<200) mg/dL LDL Cholesterol, Calc 106 H (0-99) mg/dL HDL Cholesterol 82 H (40-60) mg/dL Amylase (30-110) U/L Diabetes panel 03/11/20 03/12/20 Range/Units 19:49 02:33 Sodium 130 L (137-145) mmol/L Potassium 4.3 (3.5-5.1) mmol/L Chloride 97 L (98-107) mmol/L Carbon Dioxide 21 L (22-30) mmol/L BUN 22 H (7-17) mg/dL Creatinine 1.10 H (0.52-1.04) mg/dL Glucose 157 H (74-99) mg/dL Calcium 10.3 H (8.4-10.2) mg/dL AST 33 (14-36) U/L ALT 21 (4-34) U/L Alkaline Phosphatase 203 H (38-126) U/L Total Protein 7.7 (6.3-8.2) g/dL Albumin 4.7 (3.5-5.0) g/dL Triglycerides 60 (<150) mg/dL HDL Cholesterol 82 H (40-60) mg/dL Calcium panel 03/11/20 Range/Units 19:49 Calcium 10.3 H (8.4-10.2) mg/dL Albumin 4.7 (3.5-5.0) g/dL Pituitary panel 03/11/20 Range/Units 19:49 Sodium 130 L (137-145) mmol/L Potassium 4.3 (3.5-5.1) mmol/L Chloride 97 L (98-107) mmol/L Carbon Dioxide 21 L (22-30) mmol/L BUN 22 H (7-17) mg/dL Creatinine 1.10 H (0.52-1.04) mg/dL Glucose 157 H (74-99) mg/dL Calcium 10.3 H (8.4-10.2) mg/dL Adrenal panel 03/11/20 Range/Units 19:49 Sodium 130 L (137-145) mmol/L Potassium 4.3 (3.5-5.1) mmol/L Chloride 97 L (98-107) mmol/L Carbon Dioxide 21 L (22-30) mmol/L BUN 22 H (7-17) mg/dL Creatinine 1.10 H (0.52-1.04) mg/dL Glucose 157 H (74-99) mg/dL Calcium 10.3 H (8.4-10.2) mg/dL Total Bilirubin 0.6 (0.2-1.3) mg/dL AST 33 (14-36) U/L ALT 21 (4-34) U/L Alkaline Phosphatase 203 H (38-126) U/L Total Protein 7.7 (6.3-8.2) g/dL Albumin 4.7 (3.5-5.0) g/dL
--- NOTE | 2020-03-12 18:52 | CONS ---
CONSULTATION DATE OF DICTATION: 03/12/2020 REASON FOR CONSULTATION: Severe lower abdominal pain and bloody diarrhea. HISTORY OF PRESENT ILLNESS: The patient is a 74-year-old pleasant white female admitted to the hospital because of acute onset of severe lower abdominal pain that started yesterday afternoon. Following the abdominal pain she became extremely lightheaded and dizzy, and an hour later she felt somewhat constipated. She was given an enema by her and after that she started having bright red blood per rectum. She had about 4 episodes yesterday. She came to the emergency room and subsequently had a CT of the abdomen and pelvis done that showed thickening of the left colon consistent with acute colitis. This morning she had another 7 episodes of bright red blood per rectum. She continues to have persistent lower abdominal pain. No fever, chills or night sweats. She never had these symptoms in the past. PAST MEDICAL HISTORY: Her past medical history is significant for asthma, GERD, hypertension, degenerative joint disease, hypothyroidism, chronic migraines, insomnia. PAST SURGICAL HISTORY: Adenoidectomy, appendectomy, bariatric surgery, cholecystectomy, tonsillectomy, tubal ligation, panniculectomy, lap band surgery in 2003, EGD, colonoscopy. The last colonoscopy by Dr. Fried, according to the patient, was 4 or 5 years ago. MEDICATIONS: Medications at home include calcium, levothyroxine, multivitamin, probiotics, Xalatan eye drops, Norvasc, Ventolin, Claritin, Zestril, Pristiq, folic acid, Seroquel, HydroDIURIL, Lamictal. ALLERGIES: Allergies to MORPHINE. SOCIAL HISTORY: Former smoker. No alcohol use. FAMILY HISTORY: Mother had bladder cancer. Father had coronary artery disease and [place]. REVIEW OF SYSTEMS: CARDIOPULMONARY: No chest pain or shortness of breath. GENITOURINARY: No dysuria or hematuria. MUSCULOSKELETAL: Chronic back pain. NEUROLOGY: Unremarkable. PSYCHIATRIC: Unremarkable. ENT/VISION: Unremarkable. CONSTITUTIONAL: No recent weight loss. No fever, chills, night sweats. PHYSICAL EXAMINATION: She appears comfortable, in no apparent distress. Vital signs are stable. Blood pressure 106/69, pulse rate 101, temperature 99. HEENT examination unremarkable. Conjunctivae pink. Sclerae anicteric. Oral cavity no lesions. NECK: No JVD or lymph node enlargement. CHEST: Clear to auscultation. HEART: Regular rate and rhythm. ABDOMEN: Soft. Bowel sounds are positive. No organomegaly. Tenderness in the left lower quadrant area, suprapubic area and the right lower quadrant area. Rest of the abdomen had mild tenderness. EXTREMITIES: No pedal edema. SKIN: No rashes. NEUROLOGIC: Alert and oriented x3. No focal deficits. LABS/IMAGING: Labs done at the time of admission to the hospital: WBC 13.9, hemoglobin 14.4, platelets normal. Basic metabolic panel is within normal limits. Sodium 130, potassium 4.3, BUN 22, creatinine 1.10. AST, ALT normal, alkaline phosphatase 203. Stool occult blood was negative. CT of the abdomen and pelvis done in the emergency room did show thickening of the left colon, mostly in the descending colon and sigmoid colon, consistent with acute colitis. IMPRESSION: 1. This is a patient who presented to the hospital with acute onset of severe lower abdominal pain followed by rectal bleeding that started yesterday morning, and since then she had at least 10 or 15 bowel movements with bright red blood per rectum. CT scan showed thickening of the descending and sigmoid colon. Clinical picture is consistent with acute ischemic colitis. Possibility of infectious colitis cannot be excluded. The patient stated that she did have a colonoscopy by Dr. Fried about 4 or 5 years and was noted to have polyps. 2. History of hypertension. 3. Hyponatremia. 4. History of anxiety and depression. RECOMMENDATIONS: 1. Start her on a clear liquid diet. 2. I had a lengthy discussion with the patient regarding management of acute colitis which is most likely ischemic in etiology. At this time will continue with symptomatic and supportive care with IV hydration and broad-spectrum antibiotics. The patient is already on Zosyn at this time. Repeat labs in the morning. No need for any endoscopic intervention at the present time. Will follow with you closely. Thank you for this consultation. MMODL / IJN: [id number] /
[2020-03-12] MEDS: SYMBICORT 160-4.5 MCG INHALER INHALATION SCH (19:52)
--- NOTE | 2020-03-12 20:15 | P.HPIM ---
History of Present Illness H&P Date: 03/12/20 Chief Complaint: Abdominal pain History of presenting complaint: This is a very pleasant 74-year-old patient of Dr. Audra Bowen. Other extensive medical history. Chronic stable medical conditions include intermittent asthma, GERD, hypertension, primary osteoarthritis and multiple surgeries hypothyroid, chronic insomnia, sciatica, benign monoclonal gammopathy. 2004 patient also had a LAP-BAND with panniculectomy by Dr. Fried. Has had multiple hip and knee surgeries. Does use a cane to get about. Yesterday she sitting down in the tolerate she was straining she felt faint He passed out temporarily. Pulses having abdominal pain no nausea vomiting actually given an enema noticed to have bright red blood in the stool. Admitted for the same. Computed tomography scan did show colitis. Patient has had intermittent bright red blood per rectum. Made nothing by mouth. Start antibiotics. No chest pain or shortness of breath. Review of systems: GEN.: Tired EYES: None HEENT: None NECK: None RESPIRATORY: None CARDIOVASCULAR: None GASTROINTESTINAL: As above GENITOURINARY: None MUSCULOSKELETAL: [Multiple joint pains LYMPHATICS: None HEMATOLOGICAL: None PSYCHIATRY: Anxious NEUROLOGICAL: Does use a cane Past medical history to include: Asthma, GERD, hypertension, osteoarthritis, hypothyroid, insomnia, arthritis in multiple joints, benign monoclonal gammopathy being followed by hematology, LAP- BAND, panniculectomy, multiple orthopedic surgeries, anxiety depression bipolar Social history: . 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 Smoked a pack a day for 20 years stopped in [id number]. There is a glass of wine a day. Physical examination: VITAL SIGNS: 98.1, 98, 18, 132.90, 97% on room air GENERAL: BMI 27.4, laying in bed tired appearing awake. EYES: Pupils equal. Conjunctiva normal. HEENT: External appearance of nose and ears normal, oral cavity grossly normal. NECK: JVD not raised; masses not palpable. HEART: First and second heart sounds are normal; no edema. LUNGS: Respiratory rate normal; clear to auscultation. ABDOMEN: Soft, lower abdominal tenderness, no guarding rigidity, liver spleen not palpable, no masses palpable. PSYCH: Alert and oriented x3; mood and affect anxiousl. MUSCULOSKELETAL: Evidence of OA NEUROLOGICAL: Cranial nerves grossly intact; no facial asymmetry, power and sensation grossly intact. LYMPHATICS: No lymph nodes palpable in the axilla and neck INVESTIGATIONS, reviewed in the clinical context: White count 14.9 hemoglobin 14.4 platelets 267 sodium 1:30 potassium 4.3 bun 22 creatinine 1.10 lactic acid 2.1 UA negative Troponin I 2 both negative EKG tracing personally reviewed by me-normal sinus rhythm nonspecific ST-T wave changes. Computed tomography scan of the abdomen pelvis with contrast: Descending and sigmoid: Show circumferential [id number] mural thickening with mild i ndistinctiveness and pericolonic kidney metastatic reticulation. 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 Put on IV Zosyn. Consultation was made to GI general surgery and cardiology. On telemetry. Home medications resumed. I also spoke to patient's Dr. Austin on The phone. Patient be admitted to inpatient. Will will need at least 2 nights stay in the hospital. 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 EGD 06/22/17 Past Anesthesia/Blood Transfusion Reactions: Motion Sickness, Postoperative Nausea & Vomiting (PONV) Past Psychological History: ADD/ADHD, Anxiety, Depression Additional Psychological History / Comment(s): 09/14/17: Pt states she has recenlty been dx with depression and panic attacks and it is "not pretty." PT recently admitted on 05/18/17 with bipolar, ADHD, generalized anxiety, impulsive overdose of ambien d/t difficulty sleeping, PAST INTENTIONAL OVERDOSE ATTEMPT 12/02/2014-(PREVIOUSLY RECORDED THAT SHE THOUGHT SHE HAD ALZHEIMERS). Pt resides with her spouse. Pt is normally independent. Pt's spouse is uncertain if this was an accidental overdose or not, he wants pt to be admitted to psychiatric floor once stable. He has cancelled their upcoming vacation to [facility]. Smoking Status: Former smoker Past Alcohol Use History: Occasional Additional Past Alcohol Use History / Comment(s): QUIT SMOKING 1978. SMOKED 1PPD. SMOKED FOR 20 YEARS. Past Drug Use History: None Reported - Past Family History Mother History Unknown: Yes Family Medical History: Cancer Additional Family Medical History / Comment(s): BLADDER CA- AT 70 YEARS OLD. Father History Unknown: Yes Family Medical History: Coronary Artery Disease (CAD), Myocardial Infarction (RI) Additional Family Medical History / Comment(s): AT 60 YRS OLD Medications and Allergies Home Medications Medication Instructions Recorded Confirmed Type Cholecalciferol [Vitamin D3 (25 2,000 unit PO DAILY 05/18/17 03/12/20 History Mcg = 1000 Iu)] L.acidoph,Paracasei, B.lactis 1 cap PO DAILY 05/18/17 03/12/20 History [Probiotic] Latanoprost Ophth [Xalatan 0.005%] 1 drops BOTH EYES HS 05/18/17 03/12/20 History Loratadine [Claritin] 10 mg PO DAILY 06/20/17 03/12/20 History lisinopriL [Zestril] 20 mg PO BID 06/20/17 03/12/20 History Folic Acid 800 mcg PO DAILY 09/24/17 03/12/20 History Albuterol Sulfate [Albuterol 1 puff PO RT-Q6H PRN 03/12/20 03/12/20 History Sulfate Hfa] Aspirin [Adult Low Dose Aspirin EC] 81 mg PO DAILY 03/12/20 03/12/20 History Calcium Carbonate/Vitamin D3 1 tab PO DAILY 03/12/20 03/12/20 History [Calcium 600-Vit D3 800 Caplet] Desvenlafaxine Succinate [Pristiq] 100 mg PO DAILY 03/12/20 03/12/20 History Eszopiclone 3 mg PO HS 03/12/20 03/12/20 History Fluticasone/Salmeterol [Advair Hfa 2 puff INHALATION RT-BID 03/12/20 03/12/20 History 230-21 Mcg Inhaler] Levothyroxine Sodium [Synthroid] 88 mcg PO MOTUWETHFRSA 03/12/20 03/12/20 History Levothyroxine Sodium [Synthroid] 132 mcg PO AHMADI 03/12/20 03/12/20 History Montelukast Sodium [Singulair] 10 mg PO HS 03/12/20 03/12/20 History Multivit-Min/Iron/Folic/Lutein 1 tab PO DAILY 03/12/20 03/12/20 History [Centrum Silver Women Tablet] Omeprazole 20 mg PO DAILY 03/12/20 03/12/20 History QUEtiapine [SEROquel] 100 mg PO HS 03/12/20 03/12/20 History Suvorexant [Belsomra] 1 tab PO HS 03/12/20 03/12/20 History amLODIPine [Norvasc] 10 mg PO HS 03/12/20 03/12/20 History buPROPion HCL [Wellbutrin XL] 300 mg PO DAILY 03/12/20 03/12/20 History hydroCHLOROthiazide [Hydrodiuril] 25 mg PO DAILY 03/12/20 03/12/20 History lamoTRIgine 100 mg PO HS 03/12/20 03/12/20 History Allergies Allergy/AdvReac Type Severity Reaction Status Date / Time morphine AdvReac Confusion Verified 03/12/20 07:49 OPIATES AdvReac Unknown AGITATION Uncoded 03/12/20 07:49 Physical Exam Vitals: Vital Signs Temp Pulse Pulse Pulse Pulse Pulse Resp 03/12/20 08:36 99 F 101 H 101 H 92 20 03/12/20 03:00 98.2 F 93 18 03/11/20 23:56 98.0 F 85 18 03/11/20 22:28 89 18 03/11/20 21:45 98.1 F 94 18 03/11/20 19:13 98.1 F 98 18 BP BP BP BP BP Pulse Ox 03/12/20 08:36 120/80 98/65 106/69 93 L 03/12/20 03:00 113/73 93 L 03/11/20 23:56 96 03/11/20 22:28 145/95 95 03/11/20 21:45 145/85 98 03/11/20 19:13 132/90 97 Intake and Output 03/11/20 03/12/20 03/12/20 22:59 06:59 14:59 Other: Voiding Method Toilet # Voids 1 Weight 68.039 kg 68.039 kg Results CBC & Chem 7: 03/11/20 19:49 03/11/20 19:49 Labs: Abnormal Lab Results - Last 24 Hours (Table) 03/11/20 03/11/20 03/11/20 Range/Units 19:49 19:49 19:49 WBC 14.9 H (3.8-10.6) k/uL Neutrophils # 13.6 H (1.3-7.7) k/uL Lymphocytes # 0.6 L (1.0-4.8) k/uL APTT 21.3 L (22.0-30.0) sec Sodium 130 L (137-145) mmol/L Chloride 97 L (98-107) mmol/L Carbon Dioxide 21 L (22-30) mmol/L BUN 22 H (7-17) mg/dL Creatinine 1.10 H (0.52-1.04) mg/dL Glucose 157 H (74-99) mg/dL Plasma Lactic Acid Ramez (0.7-2.0) mmol/L Calcium 10.3 H (8.4-10.2) mg/dL Alkaline Phosphatase 203 H (38-126) U/L Cholesterol (<200) mg/dL LDL Cholesterol, Calc (0-99) mg/dL HDL Cholesterol (40-60) mg/dL Amylase 276 H (30-110) U/L 03/11/20 03/12/20 Range/Units 19:49 02:33 WBC (3.8-10.6) k/uL Neutrophils # (1.3-7.7) k/uL Lymphocytes # (1.0-4.8) k/uL APTT (22.0-30.0) sec Sodium (137-145) mmol/L Chloride (98-107) mmol/L Carbon Dioxide (22-30) mmol/L BUN (7-17) mg/dL Creatinine (0.52-1.04) mg/dL Glucose (74-99) mg/dL Plasma Lactic Acid Ramez 2.1 H* (0.7-2.0) mmol/L Calcium (8.4-10.2) mg/dL Alkaline Phosphatase (38-126) U/L Cholesterol 200 H (<200) mg/dL LDL Cholesterol, Calc 106 H (0-99) mg/dL HDL Cholesterol 82 H (40-60) mg/dL Amylase (30-110) U/L Thrombosis Risk Factor Assmnt - Choose All That Apply Any of the Below Risk Factors Present?: Yes Each Factor Represents 1 point: Obesity (BMI >25) Each Risk Factor Represents 2 Points: Age 61-74 years Other congenital or acquired thrombophilia - If yes, enter type in comment: No Thrombosis Risk Factor Assessment Total Risk Factor Score: 3 Thrombosis Risk Factor Assessment Level: Moderate Risk
[2020-03-12] MEDS: lamoTRIgine 100 MG TAB PO SCH (20:30)
[2020-03-12] MEDS: LATANOPROST 0.005% OPHTH DROPS 2.5 ML BTL BOTH EYES SCH (20:31)
[2020-03-12] MEDS: MONTELUKAST 10 MG TAB PO SCH (20:31)
[2020-03-12] MEDS: LUNESTA (ESZOPICLONE) 3 MG PO SCH (20:31)
[2020-03-12] MEDS: QUEtiapine 50 MG TAB PO SCH (20:31)
[2020-03-12] MEDS: BELSOMRA 20 MG PO SCH (20:31)
[2020-03-12] MEDS ORDERED: TEMAZEPAM 15 MG CAP PO SCH (21:00)
[2020-03-13] MEDS: SODIUM CHLORIDE 0.9% 1,000 ML IV SCH ×2 (06:52→16:33)
[2020-03-13] MEDS: LEVOTHYROXINE 88 MCG TAB PO SCH (06:52)
[2020-03-13] MEDS: PANTOPRAZOLE 40 MG TABLET PO SCH (06:52)
[2020-03-13] MEDS: SYMBICORT 160-4.5 MCG INHALER INHALATION SCH ×2 (08:09→19:34)
[2020-03-13] MEDS: CHOLECALCIFEROL 1,000 UNIT TAB PO SCH (08:34)
[2020-03-13] MEDS: FOLIC ACID 1 MG TAB PO SCH (08:34)
[2020-03-13] MEDS: MULTIVITAMINS, THERA 1 EACH TAB PO SCH (08:34)
[2020-03-13] MEDS: LORATADINE 10 MG TAB PO SCH (08:35)
[2020-03-13] MEDS: LACTOBACILLUS ACIDOPH & BULGAR 1 EACH PACKET PO SCH (08:35)
[2020-03-13] MEDS: CALCIUM CARB-VIT D 500MG-200UN 1 EACH TAB PO SCH (08:35)
[2020-03-13] MEDS: lisinopriL 20 MG TAB PO SCH ×2 (08:35→20:20)
[2020-03-13] MEDS: DESVENLAFAXINE SUCCINATE 50 MG TAB.ER.24H PO SCH (08:36)
[2020-03-13] MEDS: buPROPion XL 300 MG TAB.ER.24H PO SCH (08:37)
[2020-03-13] MEDS: PIPERACILLIN-TAZOBACTAM 3.375 GM in SODIUM CHLORIDE 0.9% 100 ML IVPB SCH ×2 (10:09→16:33)
[2020-03-13 10:50] LABS: Basophils % (A) 0 %; Eosinophils # (A) 0.3 k/uL (0-0.7); Eosinophils % (A) 3 %; HCT 34.5 % (34.0-46.0); Lymphocytes # (A) 0.9 k/uL (1.0-4.8); Lymphocytes % (A) 9 %; MCH 30.7 pg (25.0-35.0); MCHC 32.5 g/dL (31.0-37.0); MCV 94.6 fL (80.0-100.0); Mean Platelet Volume 8.8; Monocytes # (A) 0.4 k/uL (0-1.0); Monocytes % (A) 4 %; Neutrophils # (A) 8.3 k/uL (1.3-7.7); Neutrophils % (A) 83 %; Platelet Count 176 k/uL (150-450); RBC 3.65 m/uL (3.80-5.40); RDW 12.4 % (11.5-15.5); WBC 9.9 k/uL (3.8-10.6)
[2020-03-13 10:52] LABS: Albumin 3.1 g/dL (3.5-5.0); Calcium 8.8 mg/dL (8.4-10.2); Potassium 3.8 mmol/L (3.5-5.1); Total Bilirubin 0.4 mg/dL (0.2-1.3); Total Protein 5.6 g/dL (6.3-8.2)
[2020-03-13 11:02] LABS: HGB 11.2 gm/dL (11.4-16.0)
[2020-03-13 11:41] LABS: Glucose,Whole Blood 103 mg/dL (75-99)
--- NOTE | 2020-03-13 11:52 | PN ---
PROGRESS NOTE The patient is a 74-year-old pleasant white female admitted to the hospital with acute onset of lower abdominal pain followed by multiple episodes of bright red blood per rectum that started 2 days ago. She is feeling much better. She had a small smear of blood in the stool today, but no bowel movements in the last 12 hours. Abdominal pain has improved on a clear liquid diet, tolerating well. She denies any fever, chills, or night sweats. PHYSICAL EXAMINATION: Appears comfortable, no apparent distress. VITAL SIGNS: Vital signs are stable. Blood pressure 127/78, pulse 82, temperature 97.8. HEENT: Examination unremarkable. Conjunctivae are pink. Sclerae anicteric. Oral cavity no lesions. NECK: No JVD or lymph node enlargement. CHEST: Clear to auscultation. HEART: Regular rate and rhythm. ABDOMEN: Soft. Mild tenderness in the left lower quadrant area. The rest of the abdomen was benign. Bowel sounds are positive. No organomegaly. EXTREMITIES: No pedal edema. SKIN: No rashes. NEURO: She is alert and oriented x3. No focal deficits. LABS: WBC 9.1, hemoglobin 11.2, platelets normal. Basic metabolic panel is within normal limits. AST and ALT are 47 and 61 respectively. T-bilirubin and alkaline phosphatase are within normal limits. Stool occult blood was negative. IMPRESSION: Acute onset of lower abdominal pain followed by multiple episodes of bright red blood per rectum and CT scan showing thickening of the left colon, all consistent with acute ischemic colitis. Rule out infectious colitis. The patient clinically is improving. Hemoglobin dropped but stable at 11.2 g/dL. Overall condition has significantly improved since yesterday. RECOMMENDATIONS: 1. Advance to full liquid diet. 2. Continue with empiric antibiotics. 3. Increase ambulation. 4. Repeat labs in the morning. 5. If she is doing well, she can be discharged home in 24-48 hours with an outpatient colonoscopy by Dr. Fried in 6 weeks. MMODL / IJN: [id number] /
--- NOTE | 2020-03-13 12:09 | P.PN ---
Subjective Progress Note Date: 03/13/20 Principal diagnosis: Colitis Patient doing well today. Denies pain. T-max 99.3. Hemoglobin stable. White count normal. No bowel movement today. Objective - Vital Signs Vital signs: Vital Signs Temp 97.8 F 03/13/20 09:00 Pulse 82 03/13/20 09:00 Resp 18 03/13/20 09:00 BP 127/78 03/13/20 09:00 Pulse Ox 94 L 03/13/20 09:00 Intake & Output 03/12/20 03/13/20 03/13/20 18:59 06:59 18:59 Intake Total 1150 1480 240 Balance 1150 1480 240 Intake: IV 1000 1000 Piperacillin-Tazobactam 3 200 .375 gm In Sodium Chloride 0.9% 100 ml @ 25 mls/hr IVPB Q8HR [facility] Rx# :[id number] Sodium Chloride 0.9% 1, 800 1000 000 ml @ 100 mls/hr IV . Q10H [facility] Rx#:[id number] Oral 150 480 240 Other: Voiding Method Toilet Toilet Toilet Bedside Commode Bedside Commode # Voids 3 1 1 # Bowel Movements 2 1 - Exam Abdomen: Soft, nontender, nondistended - Labs CBC & Chem 7: 03/13/20 10:07 03/13/20 10:07 Labs: Abnormal Lab Results - Last 24 Hours (Table) 03/13/20 03/13/20 03/13/20 Range/Units 10:07 10:07 11:38 RBC 3.65 L (3.80-5.40) m/uL Hgb 11.2 L D (11.4-16.0) gm/dL Neutrophils # 8.3 H (1.3-7.7) k/uL Lymphocytes # 0.9 L (1.0-4.8) k/uL Sodium 135 L (137-145) mmol/L Glucose 111 H (74-99) mg/dL POC Glucose (mg/dL) 103 H (75-99) mg/dL AST 47 H (14-36) U/L ALT 61 H (4-34) U/L Total Protein 5.6 L (6.3-8.2) g/dL Albumin 3.1 L (3.5-5.0) g/dL Assessment and Plan (1) Colitis Narrative/Plan: Patient doing well today. Continue advancing diet. Continue empiric a ntibiotics. Possible discharge. Current Visit: Yes Status: Acute Code(s): K52.9 - NONINFECTIVE GASTROENTERITIS AND COLITIS, UNSPECIFIED SNOMED Code(s): 64758731
[2020-03-13] MEDS: KETOROLAC 15 MG/ML 1 ML VIAL IVP PRN ×2 (14:16→20:20)
--- NOTE | 2020-03-13 16:54 | P.PN ---
Progress Note - Text Progress Note Date: 03/13/20 Chief Complaint: Abdominal pain History of presenting complaint: This is a very pleasant 74-year-old patient of Dr. Audra Bowen. Other extensive medical history. Chronic stable medical conditions include intermittent asthma, GERD, hypertension, primary osteoarthritis and multiple surgeries hypothyroid, chronic insomnia, sciatica, benign monoclonal gammopathy. 2004 patient also had a LAP-BAND with panniculectomy by Dr. Fried. Has had multiple hip and knee surgeries. Does use a cane to get about. Yesterday she sitting down in the tolerate she was straining she felt faint She passed out temporarily. Pulses having abdominal pain no nausea vomiting hus band actually given an enema noticed to have bright red blood in the stool. Admitted for the same. Computed tomography scan did show colitis. Patient has had intermittent bright red blood per rectum. Made nothing by mouth. Start antibiotics. No chest pain or shortness of breath. Admitted with descending colitis likely ischemic. Infective colitis cannot be ruled out. Started IV Zosyn. Initially placed on ice chips. Today-feeling a bit better. She does get some blood on the tissue when she wipes herself. Decreased abdominal pain. No nausea vomiting.. Had been on clear liquids. Review of systems: Was done for constitutional, cardiovascular, GI, pulmonary. relevant finding as above Active Medications Albuterol Sulfate (Ventolin Nebulized) 2.5 mg INHALATION RT-Q6H PRN PRN Reason: Shortness Of Breath Budesonide/Formoterol Fumarate (Symbicort 160-4.5 Mcg Inhaler) 2 puff INHALATION RT-BID [facility] Last Admin: 03/13/20 08:09 Dose: 2 puff Documented by: Bupropion HCl (Wellbutrin Xl) 300 mg PO DAILY [facility] Last Admin: 03/13/20 08:37 Dose: 300 mg Documented by: Calcium Carbonate (Oscal 500+D) 1 each PO DAILY [facility] Last Admin: 03/13/20 08:35 Dose: 1 each Documented by: Cholecalciferol (Vitamin D3 (25 Mcg = 1000 Iu)) 2,000 unit PO DAILY [facility] Last Admin: 03/13/20 08:34 Dose: 2,000 unit Documented by: Desvenlafaxine Succinate (Pristiq Er) 100 mg PO DAILY [facility] Last Admin: 03/13/20 08:36 Dose: 100 mg Documented by: Folic Acid (Folic Acid) 1 mg PO DAILY [facility] Last Admin: 03/13/20 08:34 Dose: 1 mg Documented by: Sodium Chloride (Saline 0.9%) 1,000 mls @ 100 mls/hr IV .Q10H [facility] Last Admin: 03/13/20 16:33 Dose: 100 mls/hr Documented by: Piperacillin Sod/Tazobactam (Sod 3.375 gm/ Sodium Chloride) 100 mls @ 25 mls/hr IVPB Q8HR [facility] Last Admin: 03/13/20 16:33 Dose: 25 mls/hr Documented by: Ketorolac Tromethamine (Toradol) 15 mg IVP Q6HR PRN PRN Reason: Pain Stop: 03/15/20 14:31 Last Admin: 03/13/20 14:16 Dose: 15 mg Documented by: Lactobacillus Acidoph/Bulgaricus (Lactinex) 1 each PO DAILY [facility] Last Admin: 03/13/20 08:35 Dose: 1 each Documented by: Lamotrigine (Lamictal) 100 mg PO [facility] Last Admin: 03/12/20 20:30 Dose: 100 mg Documented by: Latanoprost (Xalatan 0.005%) 1 drops BOTH EYES [facility] Last Admin: 03/12/20 20:31 Dose: 1 drops Documented by: Levothyroxine Sodium (Synthroid) 88 mcg PO MoTuWeThFrSa@0630 [facility] Last Admin: 03/13/20 06:52 Dose: 88 mcg Documented by: Levothyroxine Sodium (Synthroid) 132 mcg PO AHMADI [facility] Lisinopril (Zestril) 20 mg PO BID [facility] Last Admin: 03/13/20 08:35 Dose: 20 mg Documented by: Loratadine (Claritin) 10 mg PO DAILY [facility] Last Admin: 03/13/20 08:35 Dose: 10 mg Documented by: Montelukast Sodium (Singulair) 10 mg PO [facility] Last Admin: 03/12/20 20:31 Dose: 10 mg Documented by: Multivitamins (Theragran) 1 each PO DAILY [facility] Last Admin: 03/13/20 08:34 Dose: 1 each Documented by: Nitroglycerin (Nitrostat) 0.4 mg SUBLINGUAL Q5M PRN PRN Reason: Chest Pain Lunesta (Eszopiclone () 3 Mg) 1 each PO [facility] Last Admin: 03/12/20 20:31 Dose: 1 each Documented by: Belsomra (Sovorexant () 20 Mg) 1 each PO [facility] Last Admin: 03/12/20 20:31 Dose: 1 each Documented by: Pantoprazole Sodium (Protonix) 40 mg PO AC-BRKFST [facility] Last Admin: 03/13/20 06:52 Dose: 40 mg Documented by: Quetiapine Fumarate (Seroquel) 100 mg PO [facility] Last Admin: 03/12/20 20:31 Dose: 100 mg Documented by: Physical examination: VITAL SIGNS: 97.8, 82, 18, 127/78, 94% room air GENERAL: Laying in bed, looking a bit better EYES: Pupils equal. Conjunctiva normal. HEENT: External appearance of nose and ears normal, oral cavity grossly normal. NECK: JVD not raised; masses not palpable. HEART: First and second heart sounds are normal; no edema. LUNGS: Respiratory rate normal; clear to auscultation. ABDOMEN: Soft, decreased lower abdominal tenderness, no guarding rigidity, liver spleen not palpable, no masses palpable. PSYCH: Alert and oriented x3; mood and affect anxiousl. MUSCULOSKELETAL: Evidence of OA INVESTIGATIONS, reviewed in the clinical context: White count 9.9 hemoglobin 11.2 platelets 176 potassium 3.8 creatinine 0.80 Admission testing White count 14.9 hemoglobin 14.4 platelets 267 sodium 1:30 potassium 4.3 bun 22 creatinine 1.10 lactic acid 2.1 UA negative Troponin I 2 both negative EKG tracing personally reviewed by me-normal sinus rhythm nonspecific ST-T wave changes. Computed tomography scan of the abdomen pelvis with contrast: Descending and sigmoid: Show circumferential [id number] mural thickening with mild indistinctiveness and pericolonic kidney metastatic reticulation. 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 Maki. Continue with IV Zosyn. Encouraged to set up in a chair and ambulate as tolerated. Questions were answered. Did speak to patient's over the phone.
[2020-03-13] MEDS: LATANOPROST 0.005% OPHTH DROPS 2.5 ML BTL BOTH EYES SCH (20:19)
[2020-03-13] MEDS: BELSOMRA 20 MG PO SCH (20:20)
[2020-03-13] MEDS: MONTELUKAST 10 MG TAB PO SCH (20:20)
[2020-03-13] MEDS: lamoTRIgine 100 MG TAB PO SCH (20:20)
[2020-03-13] MEDS: QUEtiapine 50 MG TAB PO SCH (20:20)
[2020-03-13] MEDS: LUNESTA (ESZOPICLONE) 3 MG PO SCH (20:21)
[2020-03-14] MEDS: PIPERACILLIN-TAZOBACTAM 3.375 GM in SODIUM CHLORIDE 0.9% 100 ML IVPB SCH ×3 (01:28→18:52)
[2020-03-14] MEDS: SODIUM CHLORIDE 0.9% 1,000 ML IV SCH ×3 (01:35→20:39)
[2020-03-14] MEDS ORDERED: LEVOTHYROXINE 88 MCG TAB PO SCH (06:30)
[2020-03-14] MEDS: LEVOTHYROXINE 88 MCG TAB PO SCH (06:33)
[2020-03-14] MEDS: PANTOPRAZOLE 40 MG TABLET PO SCH (06:33)
[2020-03-14] MEDS: SYMBICORT 160-4.5 MCG INHALER INHALATION SCH ×2 (07:58→19:46)
[2020-03-14] MEDS: MULTIVITAMINS, THERA 1 EACH TAB PO SCH (09:51)
[2020-03-14] MEDS: LORATADINE 10 MG TAB PO SCH (09:51)
[2020-03-14] MEDS: CALCIUM CARB-VIT D 500MG-200UN 1 EACH TAB PO SCH (09:51)
[2020-03-14] MEDS: CHOLECALCIFEROL 1,000 UNIT TAB PO SCH (09:51)
[2020-03-14] MEDS: FOLIC ACID 1 MG TAB PO SCH (09:51)
[2020-03-14] MEDS: lisinopriL 20 MG TAB PO SCH ×2 (09:51→20:49)
[2020-03-14] MEDS: DESVENLAFAXINE SUCCINATE 50 MG TAB.ER.24H PO SCH (09:52)
[2020-03-14] MEDS: LACTOBACILLUS ACIDOPH & BULGAR 1 EACH PACKET PO SCH (09:52)
[2020-03-14] MEDS: buPROPion XL 300 MG TAB.ER.24H PO SCH (09:52)
--- NOTE | 2020-03-14 10:45 | P.PN ---
Subjective Progress Note Date: 03/14/20 Principal diagnosis: Colitis Patient had a bloody liquid stool this morning. Otherwise feels well. Mild discomfort. Tolerating diet. Objective - Vital Signs Vital signs: Vital Signs Temp 98.0 F 03/14/20 08:42 Pulse 82 03/14/20 08:42 Resp 16 03/14/20 08:42 BP 148/97 03/14/20 08:42 Pulse Ox 96 03/14/20 08:42 Intake & Output 03/13/20 03/14/20 03/14/20 18:59 06:59 18:59 Intake Total 1440 900 460 Balance 1440 900 460 Intake: IV 1000 100 Piperacillin-Tazobactam 3 200 .375 gm In Sodium Chloride 0.9% 100 ml @ 25 mls/hr IVPB Q8HR [facility] Rx# :[id number] Sodium Chloride 0.9% 1, 800 100 000 ml @ 100 mls/hr IV . Q10H [facility] Rx#:[id number] Intake, IV Titration 200 Amount Piperacillin-Tazobactam 3 200 .375 gm In Sodium Chloride 0.9% 100 ml @ 25 mls/hr IVPB Q8HR [facility] Rx# :[id number] Oral 240 900 360 Other: Voiding Method Toilet Toilet Toilet Bedside Commode Bedside Commode Bedside Commode # Voids 3 1 1 # Bowel Movements 1 - Exam Abdomen: Soft, nondistended, mild left lower quadrant tenderness - Labs CBC & Chem 7: 03/13/20 10:07 03/13/20 10:07 Labs: Abnormal Lab Results - Last 24 Hours (Table) 03/13/20 03/13/20 03/13/20 Range/Units 10:07 10:07 11:38 RBC 3.65 L (3.80-5.40) m/uL Hgb 11.2 L D (11.4-16.0) gm/dL Neutrophils # 8.3 H (1.3-7.7) k/uL Lymphocytes # 0.9 L (1.0-4.8) k/uL Sodium 135 L (137-145) mmol/L Glucose 111 H (74-99) mg/dL POC Glucose (mg/dL) 103 H (75-99) mg/dL AST 47 H (14-36) U/L ALT 61 H (4-34) U/L Total Protein 5.6 L (6.3-8.2) g/dL Albumin 3.1 L (3.5-5.0) g/dL Assessment and Plan (1) Colitis Narrative/Plan: Patient with improved but persistent mucousy bloody diarrhea. Continue antibiotics. Continue diet as ordered. Ambulate. Current Visit: Yes Status: Acute Code(s): K52.9 - NONINFECTIVE GASTROENTERITIS AND COLITIS, UNSPECIFIED SNOMED Code(s): 48919289
[2020-03-14 11:10] LABS: Basophils % (A) 0 %; Eosinophils # (A) 0.3 k/uL (0-0.7); Eosinophils % (A) 5 %; HCT 35.5 % (34.0-46.0); HGB 11.4 gm/dL (11.4-16.0); Lymphocytes # (A) 0.7 k/uL (1.0-4.8); Lymphocytes % (A) 10 %; MCHC 32.2 g/dL (31.0-37.0); MCV 96.3 fL (80.0-100.0); Mean Platelet Volume 8.5; Monocytes # (A) 0.3 k/uL (0-1.0); Monocytes % (A) 4 %; Neutrophils # (A) 5.6 k/uL (1.3-7.7); Neutrophils % (A) 80 %; Platelet Count 179 k/uL (150-450); RBC 3.68 m/uL (3.80-5.40); RDW 12.8 % (11.5-15.5); WBC 6.9 k/uL (3.8-10.6)
--- NOTE | 2020-03-14 11:56 | PN ---
PROGRESS NOTE DATE OF SERVICE: 03/14/2020 REQUESTING PHYSICIAN: Dr. Audra Bowen. BRIEF HISTORY: Patient is a 74-year-old pleasant white female admitted to the hospital with acute colitis. She presented with lower abdominal pain and bloody diarrhea of 3 days duration. She is feeling much better. Abdominal pain has improved. However, she had a 2 bowel movement this morning with still bright red blood noted. She is on a full liquid diet, tolerating well. No nausea or vomiting. No fever, chills, or night sweats. PHYSICAL EXAMINATION: She appears comfortable. VITAL SIGNS: Blood pressure is 149/97, pulse rate 82 and afebrile. HEENT: Examination unremarkable. Conjunctivae are pink. Sclerae anicteric. Oral cavity no lesions. NECK: No JVD or lymph node enlargement. CHEST: Clear to auscultation. HEART: Regular rate and rhythm. ABDOMEN: Soft there was very minimal tenderness in the left lower quadrant area. Rest of the abdomen is benign. Bowel sounds are positive. No organomegaly. EXTREMITIES: No pedal edema. NEURO: She is alert and oriented x3. No focal deficits LABS: No labs available from today. Yesterday hemoglobin was 11.2 g/dL. IMPRESSION: Acute onset of lower abdominal pain followed by bloody diarrhea of 3 days duration. Clinical picture consistent with acute colitis, possibly ischemic etiology, cannot rule out infectious etiology. Presently on broad-spectrum antibiotics. Still has some rectal bleeding but overall feeling much better. Hemoglobin as of yesterday was 11.2 g/dL. RECOMMENDATIONS: 1. Continue with broad-spectrum antibiotics. 2. Advance to a soft diet. 3. Repeat CBC today and tomorrow. 4. If the bleeding subsided she can be discharged home tomorrow with outpatient colonoscopy by Dr. Fried in 6 weeks. MMODL / IJN: [id number] /
[2020-03-14] MEDS: KETOROLAC 15 MG/ML 1 ML VIAL IVP PRN (14:21)
--- NOTE | 2020-03-14 19:11 | P.PN ---
Progress Note - Text Progress Note Date: 03/14/20 Chief Complaint: Abdominal pain History of presenting complaint: This is a very pleasant 74-year-old patient of Dr. Audra Bowen. Other extensive medical history. Chronic stable medical conditions include intermittent asthma, GERD, hypertension, primary osteoarthritis and multiple surgeries hypothyroid, chronic insomnia, sciatica, benign monoclonal gammopathy. 2004 patient also had a LAP-BAND with panniculectomy by Dr. Fried. Has had multiple hip and knee surgeries. Does use a cane to get about. Yesterday she sitting down in the tolerate she was straining she felt faint She passed out temporarily. Pulses having abdominal pain no nausea vomiting hus band actually given an enema noticed to have bright red blood in the stool. Admitted for the same. Computed tomography scan did show colitis. Patient has had intermittent bright red blood per rectum. Made nothing by mouth. Start antibiotics. No chest pain or shortness of breath. Admitted with descending colitis likely ischemic. Infective colitis cannot be ruled out. Started IV Zosyn. Initially placed on ice chips. Today-tolerating full liquids. Abdominal pain better. He did some blood in this stool this morning. Seen by Dr. Giselle Howell. Continue antibiotics. Patient been up in a chair.. Review of systems: Was done for constitutional, cardiovascular, GI, pulmonary. relevant finding as above Active Medications Albuterol Sulfate (Ventolin Nebulized) 2.5 mg INHALATION RT-Q6H PRN PRN Reason: Shortness Of Breath Budesonide/Formoterol Fumarate (Symbicort 160-4.5 Mcg Inhaler) 2 puff INHALATION RT-BID [facility] Last Admin: 03/14/20 07:58 Dose: 2 puff Documented by: Bupropion HCl (Wellbutrin Xl) 300 mg PO DAILY [facility] Last Admin: 03/14/20 09:52 Dose: 300 mg Documented by: Calcium Carbonate (Oscal 500+D) 1 each PO DAILY [facility] Last Admin: 03/14/20 09:51 Dose: 1 each Documented by: Cholecalciferol (Vitamin D3 (25 Mcg = 1000 Iu)) 2,000 unit PO DAILY [facility] Last Admin: 03/14/20 09:51 Dose: 2,000 unit Documented by: Desvenlafaxine Succinate (Pristiq Er) 100 mg PO DAILY [facility] Last Admin: 03/14/20 09:52 Dose: 100 mg Documented by: Folic Acid (Folic Acid) 1 mg PO DAILY [facility] Last Admin: 03/14/20 09:51 Dose: 1 mg Documented by: Sodium Chloride (Saline 0.9%) 1,000 mls @ 100 mls/hr IV .Q10H [facility] Last Admin: 03/14/20 18:17 Dose: Not Given Documented by: Piperacillin Sod/Tazobactam (Sod 3.375 gm/ Sodium Chloride) 100 mls @ 25 mls/hr IVPB Q8HR [facility] Last Admin: 03/14/20 18:52 Dose: 25 mls/hr Documented by: Ketorolac Tromethamine (Toradol) 15 mg IVP Q6HR PRN PRN Reason: Pain Stop: 03/15/20 14:31 Last Admin: 03/14/20 14:21 Dose: 15 mg Documented by: Lactobacillus Acidoph/Bulgaricus (Lactinex) 1 each PO DAILY [facility] Last Admin: 03/14/20 09:52 Dose: 1 each Documented by: Lamotrigine (Lamictal) 100 mg PO [facility] Last Admin: 03/13/20 20:20 Dose: 100 mg Documented by: Latanoprost (Xalatan 0.005%) 1 drops BOTH EYES [facility] Last Admin: 03/13/20 20:19 Dose: 1 drops Documented by: Levothyroxine Sodium (Synthroid) 88 mcg PO MoTuWeThFrSa@0630 [facility] Last Admin: 03/14/20 06:33 Dose: 88 mcg Documented by: Levothyroxine Sodium (Synthroid) 132 mcg PO AHMADI [facility] Last Admin: 03/14/20 11:11 Dose: Not Given Documented by: Lisinopril (Zestril) 20 mg PO BID [facility] Last Admin: 03/14/20 09:51 Dose: 20 mg Documented by: Loratadine (Claritin) 10 mg PO DAILY [facility] Last Admin: 03/14/20 09:51 Dose: 10 mg Documented by: Montelukast Sodium (Singulair) 10 mg PO [facility] Last Admin: 03/13/20 20:20 Dose: 10 mg Documented by: Multivitamins (Theragran) 1 each PO DAILY [facility] Last Admin: 03/14/20 09:51 Dose: 1 each Documented by: Nitroglycerin (Nitrostat) 0.4 mg SUBLINGUAL Q5M PRN PRN Reason: Chest Pain Lunesta (Eszopiclone () 3 Mg) 1 each PO [facility] Last Admin: 03/13/20 20:21 Dose: 1 each Documented by: Belsomra (Sovorexant () 20 Mg) 1 each PO [facility] Last Admin: 03/13/20 20:20 Dose: 1 each Documented by: Pantoprazole Sodium (Protonix) 40 mg PO -BRKFST [facility] Last Admin: 03/14/20 06:33 Dose: 40 mg Documented by: Quetiapine Fumarate (Seroquel) 100 mg PO [facility] Last Admin: 03/13/20 20:20 Dose: 100 mg Documented by: Physical examination: VITAL SIGNS: 98, 82, 16, 148/97, 96% room air GENERAL: Laying in bed, more perked up EYES: Pupils equal. Conjunctiva pale. HEENT: External appearance of nose and ears normal, oral cavity grossly normal. NECK: JVD not raised; masses not palpable. HEART: First and second heart sounds are normal; no edema. LUNGS: Respiratory rate normal; clear to auscultation. ABDOMEN: Soft, decreased lower abdominal tenderness, no guarding rigidity, liver spleen not palpable, no masses palpable. PSYCH: Alert and oriented x3; mood and affect less anxious MUSCULOSKELETAL: Evidence of OA INVESTIGATIONS, reviewed in the clinical context: White count 6.9 hemoglobin 11.4 Admission testing White count 14.9 hemoglobin 14.4 platelets 267 sodium 1:30 potassium 4.3 bun 22 creatinine 1.10 lactic acid 2.1 UA negative Troponin I 2 both negative EKG tracing personally reviewed by me-normal sinus rhythm nonspecific ST-T wave changes. Computed tomography scan of the abdomen pelvis with contrast: Descending and sigmoid: Show circumferential [id number] mural thickening with mild indistinctiveness and pericolonic kidney metastatic reticulation. 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 Repeat CBC in the morning. Discussed with the patient. Spoke to the nurse to have the patient ambulate in the hallway.
[2020-03-14] MEDS: QUEtiapine 50 MG TAB PO SCH (20:49)
[2020-03-14] MEDS: MONTELUKAST 10 MG TAB PO SCH (20:49)
[2020-03-14] MEDS: lamoTRIgine 100 MG TAB PO SCH (20:49)
[2020-03-14] MEDS: LATANOPROST 0.005% OPHTH DROPS 2.5 ML BTL BOTH EYES SCH (20:50)
[2020-03-14] MEDS: BELSOMRA 20 MG PO SCH (21:06)
[2020-03-14] MEDS: LUNESTA (ESZOPICLONE) 3 MG PO SCH (21:06)
[2020-03-15] MEDS: PIPERACILLIN-TAZOBACTAM 3.375 GM in SODIUM CHLORIDE 0.9% 100 ML IVPB SCH ×2 (00:25→08:36)
[2020-03-15 06:09] LABS: Basophils % (A) 0 %; Eosinophils # (A) 0.3 k/uL (0-0.7); Eosinophils % (A) 7 %; HGB 10.1 gm/dL (11.4-16.0); Lymphocytes # (A) 0.7 k/uL (1.0-4.8); Lymphocytes % (A) 15 %; MCH 30.9 pg (25.0-35.0); MCHC 32.7 g/dL (31.0-37.0); MCV 94.5 fL (80.0-100.0); Mean Platelet Volume 8.3; Monocytes # (A) 0.3 k/uL (0-1.0); Monocytes % (A) 7 %; Neutrophils # (A) 3.2 k/uL (1.3-7.7); Neutrophils % (A) 69 %; Platelet Count 171 k/uL (150-450); RBC 3.28 m/uL (3.80-5.40); RDW 12.7 % (11.5-15.5); WBC 4.7 k/uL (3.8-10.6)
[2020-03-15] MEDS: SODIUM CHLORIDE 0.9% 1,000 ML IV SCH (06:27)
[2020-03-15] MEDS: PANTOPRAZOLE 40 MG TABLET PO SCH (06:28)
[2020-03-15 06:46] LABS: African American GFR (CKD) >90 (>60 ml/min/1.73 sqM); Anion Gap 4 mmol/L; Blood Urea Nitrogen 4 mg/dL (7-17); Calcium 8.4 mg/dL (8.4-10.2); Carbon Dioxide 23 mmol/L (22-30); Chloride 111 mmol/L (98-107); Glucose 89 mg/dL (74-99); Non-African American GFR(CKD) 87 (>60 ml/min/1.73 sqM); Potassium 3.8 mmol/L (3.5-5.1); Sodium 138 mmol/L (137-145)
[2020-03-15] MEDS: SYMBICORT 160-4.5 MCG INHALER INHALATION SCH (07:17)
[2020-03-15 08:32] VITALS: BP 164/100; PULSE 83; RESP 16; TEMP 98
[2020-03-15] MEDS: CALCIUM CARB-VIT D 500MG-200UN 1 EACH TAB PO SCH (08:39)
[2020-03-15] MEDS: buPROPion XL 300 MG TAB.ER.24H PO SCH (08:39)
[2020-03-15] MEDS: lisinopriL 20 MG TAB PO SCH (08:40)
[2020-03-15] MEDS: FOLIC ACID 1 MG TAB PO SCH (08:40)
[2020-03-15] MEDS: LACTOBACILLUS ACIDOPH & BULGAR 1 EACH PACKET PO SCH (08:40)
[2020-03-15] MEDS: DESVENLAFAXINE SUCCINATE 50 MG TAB.ER.24H PO SCH (08:40)
[2020-03-15] MEDS: CHOLECALCIFEROL 1,000 UNIT TAB PO SCH (08:40)
[2020-03-15] MEDS: MULTIVITAMINS, THERA 1 EACH TAB PO SCH (08:41)
[2020-03-15] MEDS: LORATADINE 10 MG TAB PO SCH (08:41)
--- NOTE | 2020-03-15 11:22 | P.PN ---
Subjective Progress Note Date: 03/15/20 Principal diagnosis: Colitis Patient doing well today. Brown stool that is more formed. Denies pain. Objective - Vital Signs Vital signs: Vital Signs Temp 98 F 03/15/20 08:31 Pulse 83 03/15/20 08:31 Resp 16 03/15/20 08:31 BP 164/100 03/15/20 08:31 Pulse Ox 95 03/15/20 08:31 Intake & Output 03/14/20 03/15/20 03/15/20 18:59 06:59 18:59 Intake Total 460 300 Output Total 3 Balance 457 300 Intake: IV 100 100 Sodium Chloride 0.9% 1, 100 100 000 ml @ 100 mls/hr IV . Q10H [facility] Rx#:[id number] Oral 360 200 Output: Urine/Stool Mix 3 Other: Voiding Method Toilet Toilet Toilet Bedside Commode Bedside Commode Bedside Commode # Voids 1 2 2 # Bowel Movements 1 2 1 - Exam Abdomen: Soft, nondistended, nontender - Labs CBC & Chem 7: 03/15/20 05:33 03/15/20 05:33 Labs: Abnormal Lab Results - Last 24 Hours (Table) 03/15/20 03/15/20 Range/Units 05:33 05:33 RBC 3.28 L (3.80-5.40) m/uL Hgb 10.1 L (11.4-16.0) gm/dL Hct 31.0 L (34.0-46.0) % Lymphocytes # 0.7 L (1.0-4.8) k/uL Chloride 111 H (98-107) mmol/L BUN 4 L (7-17) mg/dL Microbiology - Last 24 Hours (Table) 03/14/20 15:39 Stool Culture - Preliminary Stool Assessment and Plan (1) Colitis Narrative/Plan: Patient doing well. Continue to monitor for recurrent bleeding. Continue diet as tolerated. Outpatient follow-up with Dr. Fried. He Current Visit: Yes Status: Acute Code(s): K52.9 - NONINFECTIVE GASTROENTERITIS AND COLITIS, UNSPECIFIED SNOMED Code(s): 59780877
--- NOTE | 2020-03-15 11:55 | PN ---
PROGRESS NOTE DATE OF SERVICE: 03/15/2020 INTERVAL HISTORY: Patient is a 74-year-old pleasant white female admitted to hospital with acute colitis, presented with abdominal pain and rectal bleeding. She is doing better. She had 1 brown bowel movement this morning and had small amount of blood when she wiped. No abdominal pain. On a soft diet, tolerating well. PHYSICAL EXAMINATION: Appears comfortable. No apparent distress. VITAL SIGNS: Stable. Blood pressure is 138/85, pulse rate 82 per minute and afebrile. HEENT: Examination unremarkable. Conjunctivae are pink. Sclerae anicteric. Oral cavity no lesions. NECK: No JVD. No lymph node enlargement. CHEST: Clear to auscultation. HEART: Regular rate and rhythm. ABDOMEN: Soft. Bowel sounds are positive. No organomegaly. EXTREMITIES: No pedal edema. SKIN: No rashes. NEURO: She is alert and oriented x3. No focal deficits. LABS: WBC 4.7, hemoglobin 10.1, platelets normal. Basic metabolic panel is within normal limits. IMPRESSION: Acute colitis, possibly infectious versus ischemic. On broad-spectrum antibiotics and doing better. Bleeding has resolved. She had normal bowel movement this morning with a small amount of blood when she wiped. Hemoglobin stable at 10.1 g/dL. RECOMMENDATIONS: 1. Continue with antibiotics. 2. Continue with low fiber diet. 3. The patient can be discharged home today with outpatient followup in 2-3 weeks. Thank you for this consultation. MMODL / CATHIN: [id number] /
--- NOTE | 2020-03-15 15:59 | P.DS ---
Providers Date of admission: 03/12/20 20:15 Expected date of discharge: 03/15/20 Attending physician: Cameron Reza Consults: 03/11/20 23:20 Consult Physician Routine Consulting Provider: [facility] Consult Reason/Comments: near syncope Do you want consulting provider notified?: Yes 03/12/20 09:09 Consult Physician Urgent Consulting Provider: Hilda Howell Consult Reason/Comments: blood in stool, abdominal cramps, colitis Do you want consulting provider notified?: Yes 03/12/20 09:57 Consult Physician Routine Consulting Provider: Rolo Fried Consult Reason/Comments: abd pain Do you want consulting provider notified?: Yes [facility] Course: Chief Complaint: Abdominal pain History of presenting complaint: This is a very pleasant 74-year-old patient of Dr. Audra Bowen. Other extensive medical history. Chronic stable medical conditions include intermittent asthma, GERD, hypertension, primary osteoarthritis and multiple surgeries hypothyroid, chronic insomnia, sciatica, benign monoclonal gammopathy. 2004 patient also had a LAP-BAND with panniculectomy by Dr. Fried. Has had multiple hip and knee surgeries. Does use a cane to get about. Yesterday she sitting down in the tolerate she was straining she felt faint She passed out temporarily. Pulses having abdominal pain no nausea vomiting actually given an enema noticed to have bright red blood in the stool. Admitted for the same. Computed tomography scan did show colitis. Patient has had intermittent bright red blood per rectum. Made nothing by mouth. Start antibiotics. No chest pain or shortness of breath. Admitted with descending colitis likely ischemic. Infective colitis cannot be ruled out. Started IV Zosyn. Initially placed on ice chips. Today-tolerated regular diet. Pain well controlled. No further bleeding. Has been out of bed. Cheerful. Keen to go home. Care was discussed with the patient. Questions were answered. Complete a course of antibiotic. Outpatient coloscopy. Discussion and discharge planning more than 35 minutes Consultation: Dr. Morris from general surgery Dr. Giselle Howell from GI Physical examination: VITAL SIGNS: 98, 83, 16, 137/87, 95% room air GENERAL: Laying in bed, comfortable, cheerful EYES: Pupils equal. Conjunctiva pale. HEENT: External appearance of nose and ears normal, oral cavity grossly normal. NECK: JVD not raised; masses not palpable. HEART: First and second heart sounds are normal; no edema. LUNGS: Respiratory rate normal; clear to auscultation. ABDOMEN: Soft, no abdominal tenderness, no guarding rigidity, liver spleen not palpable, no masses palpable. PSYCH: Alert and oriented x3; mood and affect cheerful MUSCULOSKELETAL: Evidence of OA INVESTIGATIONS, reviewed in the clinical context: White count 4.7 hemoglobin 10.1 potassium 3.8 Admission testing White count 14.9 hemoglobin 14.4 platelets 267 sodium 1:30 potassium 4.3 bun 22 creatinine 1.10 lactic acid 2.1 UA negative Troponin I 2 both negative EKG tracing personally reviewed by me-normal sinus rhythm nonspecific ST-T wave changes. Computed tomography scan of the abdomen pelvis with contrast: Descending and sigmoid: Show circumferential [id number] mural thickening with mild indistinctiveness and pericolonic kidney metastatic reticulation. Assessment: -acute severe ischemic colitis left-sided, infectious component cannot be ruled out-slow to respond -Acute GI blood loss anemia -SIRS from above -Intermittent asthma -GERD -Essential hypertension -Primary osteoarthritis -Hypothyroid and-chronic insomnia for medical conditions -Chronic sciatica -Benign monoclonal adenopathy been followed by hematology -Bipolar disorder currently under control Disposition: Home Patient Condition at Discharge: Stable Plan - Discharge Summary Discharge Rx Participant: No New Discharge Prescriptions: New Amoxicillin/Potassium Clav [Augmentin 875-125 Tablet] 1 tab PO Q12HR #14 tab Continue Latanoprost Ophth [Xalatan 0.005%] 1 drops BOTH EYES HS Cholecalciferol [Vitamin D3 (25 Mcg = 1000 Iu)] 2,000 unit PO DAILY L.acidoph,Paracasei, B.lactis [Probiotic] 1 cap PO DAILY lisinopriL [Zestril] 20 mg PO BID Loratadine [Claritin] 10 mg PO DAILY Folic Acid 800 mcg PO DAILY Eszopiclone 3 mg PO HS Aspirin [Adult Low Dose Aspirin EC] 81 mg PO DAILY buPROPion HCL [Wellbutrin XL] 300 mg PO DAILY Montelukast Sodium [Singulair] 10 mg PO HS Albuterol Sulfate [Albuterol Sulfate Hfa] 1 puff PO RT-Q6H PRN PRN Reason: Shortness Of Breath Calcium Carbonate/Vitamin D3 [Calcium 600-Vit D3 800 Caplet] 1 tab PO DAILY Desvenlafaxine Succinate [Pristiq] 100 mg PO DAILY Fluticasone/Salmeterol [Advair Hfa 230-21 Mcg Inhaler] 2 puff INHALATION RT- BID lamoTRIgine 100 mg PO HS Levothyroxine Sodium [Synthroid] 88 mcg PO MOTUWETHFRSA Levothyroxine Sodium [Synthroid] 132 mcg PO AHMADI Multivit-Min/Iron/Folic/Lutein [Centrum Silver Women Tablet] 1 tab PO DAILY Omeprazole 20 mg PO DAILY QUEtiapine [SEROquel] 100 mg PO HS Suvorexant [Belsomra] 1 tab PO HS Changed amLODIPine [Norvasc] 5 mg PO HS #0 Discontinued hydroCHLOROthiazide [Hydrodiuril] 25 mg PO DAILY Discharge Medication List Cholecalciferol [Vitamin D3 (25 Mcg = 1000 Iu)] 2,000 unit PO DAILY 05/18/17 [History] L.acidoph,Paracasei, B.lactis [Probiotic] 1 cap PO DAILY 05/18/17 [History] Latanoprost Ophth [Xalatan 0.005%] 1 drops BOTH EYES HS 05/18/17 [History] Loratadine [Claritin] 10 mg PO DAILY 06/20/17 [History] lisinopriL [Zestril] 20 mg PO BID 06/20/17 [History] Folic Acid 800 mcg PO DAILY 09/24/17 [History] Albuterol Sulfate [Albuterol Sulfate Hfa] 1 puff PO RT-Q6H PRN 03/12/20 [History] Aspirin [Adult Low Dose Aspirin EC] 81 mg PO DAILY 03/12/20 [History] Calcium Carbonate/Vitamin D3 [Calcium 600-Vit D3 800 Caplet] 1 tab PO DAILY 03/12/20 [History] Desvenlafaxine Succinate [Pristiq] 100 mg PO DAILY 03/12/20 [History] Eszopiclone 3 mg PO HS 03/12/20 [History] Fluticasone/Salmeterol [Advair Hfa 230-21 Mcg Inhaler] 2 puff INHALATION RT-BID 03/12/20 [History] Levothyroxine Sodium [Synthroid] 88 mcg PO MOTUWETHFRSA 03/12/20 [History] Levothyroxine Sodium [Synthroid] 132 mcg PO AHMADI 03/12/20 [History] Montelukast Sodium [Singulair] 10 mg PO HS 03/12/20 [History] Multivit-Min/Iron/Folic/Lutein [Centrum Silver Women Tablet] 1 tab PO DAILY 03/12/20 [History] Omeprazole 20 mg PO DAILY 03/12/20 [History] QUEtiapine [SEROquel] 100 mg PO HS 03/12/20 [History] Suvorexant [Belsomra] 1 tab PO HS 03/12/20 [History] buPROPion HCL [Wellbutrin XL] 300 mg PO DAILY 03/12/20 [History] lamoTRIgine 100 mg PO HS 03/12/20 [History] Amoxicillin/Potassium Clav [Augmentin 875-125 Tablet] 1 tab PO Q12HR #14 tab 03/15/20 [Rx] amLODIPine [Norvasc] 5 mg PO HS #0 03/15/20 [Rx] Follow up Appointment(s)/Referral(s): Kindra Gilman MD [STAFF PHYSICIAN] - 1 Week (Please call the office to schedule follow up appointment) Hilda Howell MD [STAFF PHYSICIAN] - 1 Week (Please call the office to schedule follow up appointment) Dez Bowen DO [Primary Care Provider] - 1-2 days (Please call the office to schedule follow up appointment) Rolo Fried MD [STAFF PHYSICIAN] - 1 Week (Please call the office to schedule follow up appointment) Patient Instructions/Handouts: Irritable Bowel Syndrome (GEN), Infectious Colitis (GEN) Discharge Disposition: HOME SELF-CARE
== END 2020-03-15 12:53 | disposition home or self-care (01) | DRG 394 ==
LOC: EC 18:56 → 3NCARDOBS 23:13 → OBSVTOIN 03-12 20:15
PROVIDERS: ADMIT Hospitalist; ATTEND Hospitalist
DX: K55.039 Acute (reversible) ischemia of large intestine, extent unspecified (principal); A09 Infectious gastroenteritis and colitis, unspecified; R65.10 Systemic inflammatory response syndrome (SIRS) of non-infectious origin without acute organ dysfunction; E87.2 Acidosis; E87.1 Hypo-osmolality and hyponatremia; D62 Acute posthemorrhagic anemia; F31.9 Bipolar disorder, unspecified; K21.9 Gastro-esophageal reflux disease without esophagitis; J45.20 Mild intermittent asthma, uncomplicated; I10 Essential (primary) hypertension; E03.9 Hypothyroidism, unspecified; G43.909 Migraine, unspecified, not intractable, without status migrainosus; D47.2 Monoclonal gammopathy; F90.9 Attention-deficit hyperactivity disorder, unspecified type; F41.0 Panic disorder [episodic paroxysmal anxiety]; F41.1 Generalized anxiety disorder; E86.0 Dehydration; M54.30 Sciatica, unspecified side; M19.91 Primary osteoarthritis, unspecified site; F51.04 Psychophysiologic insomnia; R45.87 Impulsiveness; E66.9 Obesity, unspecified; G62.9 Polyneuropathy, unspecified; M81.0 Age-related osteoporosis without current pathological fracture; K59.00 Constipation, unspecified; R55 Syncope and collapse; Z68.27 Body mass index [BMI] 27.0-27.9, adult; Z79.899 Other long term (current) drug therapy; Z79.82 Long term (current) use of aspirin; Z79.51 Long term (current) use of inhaled steroids; Z98.84 Bariatric surgery status; Z98.890 Other specified postprocedural states; Z90.49 Acquired absence of other specified parts of digestive tract; Z98.51 Tubal ligation status; Z96.643 Presence of artificial hip joint, bilateral; Z96.651 Presence of right artificial knee joint; Z87.891 Personal history of nicotine dependence; Z79.890 Hormone replacement therapy; Z88.5 Allergy status to narcotic agent; Z80.52 Family history of malignant neoplasm of bladder; Z82.49 Family history of ischemic heart disease and other diseases of the circulatory system
CPT/HCPCS: 36415; 51701; 74177; 80048; 80053; 80061; 81003; 82150; 82272; 83605; 83690; 84484; 85025; 85610; 85730; 87045; 87046; 93005; 93306; 94640; 96361; 96374; 99285

== ENCOUNTER → 2020-04-29 | Day surgery (SDC) | payer MEDICARE ==
[2020-04-27 18:24] VITALS: BMI 27.8
[~2020-04-29] MED LIST: LACTATED RINGERS 1,000 ML IV SCH; LIDOCAINE 1% (10MG/ML) FOR IV START INTRADERMA ONE; PROPOFOL 10 MG/ML 20 ML VIAL IV ONE
[2020-04-29 09:50] VITALS: TEMP 97.7
--- NOTE | 2020-04-29 10:16 | P.GSHP ---
History of Present Illness H&P Date: 04/29/20 Chief Complaint: Colitis This a 74-year-old female with a previous history of colitis. Patient rents today for colonoscopy. Past Medical History Past Medical History: Asthma, GERD/Reflux, Hypertension, Osteoarthritis (OA), Thyroid Disorder Additional Past Medical History / Comment(s): Insomnia, past migraines, sinus problems at times, hypothyroid, arthritis-back pain, sciatica,, GALLBLADDER DISORDER History of Any Multi-Drug Resistant Organisms: None Reported Past Surgical History: Adenoidectomy, Appendectomy, Bariatric Surgery, Cholecystectomy, Joint Replacement, Orthopedic Surgery, Tonsillectomy, Tubal Ligation Additional Past Surgical History / Comment(s): 2003 lap band, panniculectomy, R hip ORIF/total arthroplasty, L hip arthroplasty x 2, r knee ACL repair and total arthroplasty, R thumb sx, D&Cs, EGDs/colonoscopies, R breast benign bx. EGD 06/22/17 Past Anesthesia/Blood Transfusion Reactions: Motion Sickness, Postoperative Nausea & Vomiting (PONV) Smoking Status: Former smoker - Past Family History Mother History Unknown: Yes Family Medical History: Cancer Additional Family Medical History / Comment(s): BLADDER CA- AT 70 YEARS OLD. Father History Unknown: Yes Family Medical History: Coronary Artery Disease (CAD), Myocardial Infarction ([place]) Additional Family Medical History / Comment(s): AT 60 YRS OLD Medications and Allergies Home Medications Medication Instructions Recorded Confirmed Type Cholecalciferol [Vitamin D3 (25 2,000 unit PO DAILY 05/18/17 04/29/20 History Mcg = 1000 Iu)] L.acidoph,Paracasei, B.lactis 1 cap PO DAILY 05/18/17 04/29/20 History [Probiotic] Latanoprost Ophth [Xalatan 0.005%] 1 drops BOTH EYES HS 05/18/17 04/29/20 History Loratadine [Claritin] 10 mg PO DAILY 06/20/17 04/29/20 History lisinopriL [Zestril] 20 mg PO BID 06/20/17 04/29/20 History Folic Acid 800 mcg PO DAILY 09/24/17 04/29/20 History Albuterol Sulfate [Albuterol 1 puff PO RT-Q6H PRN 03/12/20 04/29/20 History Sulfate Hfa] Aspirin [Adult Low Dose Aspirin EC] 81 mg PO DAILY 03/12/20 04/29/20 History Calcium Carbonate/Vitamin D3 1 tab PO DAILY 03/12/20 04/29/20 History [Calcium 600-Vit D3 800 Caplet] Desvenlafaxine Succinate [Pristiq] 100 mg PO DAILY 03/12/20 04/29/20 History Eszopiclone 3 mg PO HS 03/12/20 04/29/20 History Fluticasone/Salmeterol [Advair Hfa 2 puff INHALATION RT-BID 03/12/20 04/29/20 History 230-21 Mcg Inhaler] Levothyroxine Sodium [Synthroid] 88 mcg PO MOTUWETHFRSA 03/12/20 04/29/20 History Levothyroxine Sodium [Synthroid] 132 mcg PO AHMAID 03/12/20 04/29/20 History Montelukast Sodium [Singulair] 10 mg PO HS 03/12/20 04/29/20 History Multivit-Min/Iron/Folic/Lutein 1 tab PO DAILY 03/12/20 04/29/20 History [Centrum Silver Women Tablet] Omeprazole 20 mg PO DAILY 03/12/20 04/29/20 History QUEtiapine [SEROquel] 100 mg PO HS 03/12/20 04/29/20 History Suvorexant [Belsomra] 20 mg PO HS 03/12/20 04/29/20 History buPROPion HCL [Wellbutrin XL] 300 mg PO DAILY 03/12/20 04/29/20 History lamoTRIgine 100 mg PO HS 03/12/20 04/29/20 History hydroCHLOROthiazide 25 mg PO MOTUWETHFRSA 04/27/20 04/29/20 History hydroCHLOROthiazide [Hydrodiuril] 50 mg PO AHMADI 04/27/20 04/29/20 History Allergies Allergy/AdvReac Type Severity Reaction Status Date / Time spironolactone Allergy ANXIETY Verified 04/27/20 18:12 [From Aldactone] AND DEPRESSION morphine AdvReac Confusion Verified 04/27/20 18:10 OPIATES AdvReac Unknown AGITATION Uncoded 04/27/20 18:10 Surgical - Exam Vital Signs Temp Pulse Resp BP Pulse Ox 97.7 F 83 18 160/95 94 L 04/29/20 09:49 04/29/20 09:49 04/29/20 09:49 04/29/20 09:49 04/29/20 09:49 - General well developed, well nourished, no distress - Eyes PERRL - ENT normal pinna - Neck no masses - Respiratory normal expansion - Cardiovascular Rhythm: regular - Abdomen Abdomen: soft, non tender Assessment and Plan Assessment: Colitis. We'll perform colonoscopy.
--- NOTE | 2020-04-29 10:35 | P.OP ---
Date of Procedure: 04/29/20 Preoperative Diagnosis: Colitis Postoperative Diagnosis: Mild diverticulosis Procedure(s) Performed: Colonoscopy Anesthesia: MAC Surgeon: Rolo Fried Pathology: none sent Condition: stable Disposition: PACU Description of Procedure: The patient's placed on the endoscopy table lateral position. She received IV sedation. Digital rectal exam performed which revealed no abnormality. The flexible colonoscope was then placed anus passed throughout the colon. The ileocecal valve was visualized tortuosity valve. Scope was withdrawn. The remainder the ascending colon transverse colon appeared normal. The descending and; was mild diverticular changes. The scope was brought back the rectum this appeared normal. Scope. There is no evidence of any inflammatory changes in the descending and sigmoid colon.
[2020-04-29 10:39] VITALS: BP 138/68; RESP 16
[2020-04-29 10:57] VITALS: PULSE 68
== END ==
LOC: ORWHC2ENDO 08:47
PROVIDERS: ATTEND Surgery
DX: K57.30 Diverticulosis of large intestine without perforation or abscess without bleeding (principal); Q43.8 Other specified congenital malformations of intestine; K21.9 Gastro-esophageal reflux disease without esophagitis; I10 Essential (primary) hypertension; J45.909 Unspecified asthma, uncomplicated; M19.90 Unspecified osteoarthritis, unspecified site; G47.00 Insomnia, unspecified; E03.9 Hypothyroidism, unspecified; M47.9 Spondylosis, unspecified; M54.30 Sciatica, unspecified side; Z90.49 Acquired absence of other specified parts of digestive tract; Z98.84 Bariatric surgery status; Z98.51 Tubal ligation status; Z96.643 Presence of artificial hip joint, bilateral; Z96.651 Presence of right artificial knee joint; Z98.890 Other specified postprocedural states; Z87.891 Personal history of nicotine dependence; Z80.52 Family history of malignant neoplasm of bladder; Z82.49 Family history of ischemic heart disease and other diseases of the circulatory system; Z79.899 Other long term (current) drug therapy; Z79.82 Long term (current) use of aspirin; Z79.890 Hormone replacement therapy; Z79.51 Long term (current) use of inhaled steroids; Z88.5 Allergy status to narcotic agent; Z88.8 Allergy status to other drugs, medicaments and biological substances
CPT/HCPCS: 45378; J2704

== ENCOUNTER → 2020-06-24 | Outpatient (CLI) | payer MEDICARE | END | disposition home or self-care (01) | LOC: RADUSWWP 12:32 | PROVIDERS: ATTEND Family Medicine | DX: I73.9 Peripheral vascular disease, unspecified (principal) | CPT/HCPCS: 93922 ==

== ENCOUNTER 2020-10-25 08:52 | Day surgery (SDC) | payer MEDICARE ==
[2020-10-22 12:22] VITALS: BMI 27.8
[~2020-10-25 08:52] MED LIST changes: +ACETAMINOPHEN TAB 500 MG TAB PO PRN; +HEPARIN SODIUM,PORCINE/PF 5,000 UNIT/0.5 ML SYRINGE SQ PRN; -LIDOCAINE 1% (10MG/ML) FOR IV START INTRADERMA ONE; +LIDOCAINE 1% (10MG/ML) FOR IV START INTRADERMA PRN; -PROPOFOL 10 MG/ML 20 ML VIAL IV ONE; +Pre Op ABX Message 1 EACH MISC MISCELLANE ONE
[2020-10-25 09:24] VITALS: TEMP 97.4
[2020-10-25] MEDS ORDERED: ONDANSETRON 4 MG/2 ML VIAL ONE (09:30)
[2020-10-25] MEDS ORDERED: LIDOCAINE 1% (10MG/ML) FOR IV START INTRADERMA ONE (09:41)
[2020-10-25] MEDS ORDERED: DEXAMETHASONE SOD PHOSPHATE 4 MG/ML 1 ML VIAL IV ONE (09:42)
--- NOTE | 2020-10-25 11:09 | P.GSHP ---
History of Present Illness H&P Date: 10/25/20 Chief Complaint: Right Buttock skin lesion Is a 75-year-old female who presents today for excision of a right buttock skin lesion. Patient hasn't had an inflamed skin lesion for several months. It measured approximately 3 cm in size. Past Medical History Past Medical History: Asthma, GERD/Reflux, Hypertension, Osteoarthritis (OA), Thyroid Disorder Additional Past Medical History / Comment(s): Insomnia, past migraines, sinus problems at times, hypothyroid, arthritis-back pain, sciatica,, GALLBLADDER DISORDER History of Any Multi-Drug Resistant Organisms: None Reported Past Surgical History: Adenoidectomy, Appendectomy, Bariatric Surgery, Joint Replacement, Orthopedic Surgery, Tonsillectomy, Tubal Ligation Additional Past Surgical History / Comment(s): 2003 lap band, panniculectomy, R hip ORIF/total arthroplasty, L hip arthroplasty x 2, r knee ACL repair and total arthroplasty, R thumb sx, D&Cs, EGDs/colonoscopies, R breast benign bx. EGD Past Anesthesia/Blood Transfusion Reactions: Motion Sickness, Postoperative Nausea & Vomiting (PONV) Smoking Status: Former smoker - Past Family History Mother History Unknown: Yes Family Medical History: Cancer Additional Family Medical History / Comment(s): BLADDER CA- AT 70 YEARS OLD. Father History Unknown: Yes Family Medical History: Coronary Artery Disease (CAD), Myocardial Infarction ([place]) Additional Family Medical History / Comment(s): AT 60 YRS OLD Medications and Allergies Home Medications Medication Instructions Recorded Confirmed Type Cholecalciferol [Vitamin D3 (25 2,000 unit PO DAILY 05/18/17 10/25/20 History Mcg = 1000 Iu)] Latanoprost Ophth [Xalatan 0.005%] 1 drops BOTH EYES HS 05/18/17 10/25/20 History Loratadine [Claritin] 10 mg PO DAILY 06/20/17 10/25/20 History lisinopriL [Zestril] 20 mg PO BID 06/20/17 10/25/20 History Folic Acid 800 mcg PO DAILY 09/24/17 10/25/20 History Albuterol Sulfate [Albuterol 1 puff PO RT-Q6H PRN 03/12/20 10/25/20 History Sulfate Hfa] Aspirin [Adult Low Dose Aspirin EC] 81 mg PO DAILY 03/12/20 10/25/20 History Calcium Carbonate/Vitamin D3 1 tab PO DAILY 03/12/20 10/25/20 History [Calcium 600-Vit D3 20 Mcg (800 Iu)] Desvenlafaxine Succinate [Pristiq] 50 mg PO DAILY 03/12/20 10/25/20 History Eszopiclone 3 mg PO HS 03/12/20 10/25/20 History Fluticasone/Salmeterol [Advair Hfa 2 puff INHALATION RT-BID 03/12/20 10/25/20 History 230-21 Mcg Inhaler] Levothyroxine Sodium [Synthroid] 88 mcg PO MOTUWETHFRSA 03/12/20 10/25/20 History Levothyroxine Sodium [Synthroid] 132 mcg PO AHMADI 03/12/20 10/25/20 History Montelukast Sodium [Singulair] 10 mg PO HS 03/12/20 10/25/20 History Multivit-Min/Iron/Folic/Lutein 1 tab PO DAILY 03/12/20 10/25/20 History [Centrum Silver Women Tablet] Omeprazole 20 mg PO DAILY 03/12/20 10/25/20 History QUEtiapine [SEROquel] 100 mg PO HS 03/12/20 10/25/20 History Suvorexant [Belsomra] 10 mg PO HS 03/12/20 10/25/20 History buPROPion HCL [Wellbutrin XL] 300 mg PO DAILY 03/12/20 10/25/20 History lamoTRIgine 100 mg PO HS 03/12/20 10/25/20 History hydroCHLOROthiazide 25 mg PO MOTUWETHFRSA 04/27/20 10/25/20 History hydroCHLOROthiazide [Hydrodiuril] 50 mg PO AHMADI 04/27/20 10/25/20 History amLODIPine [Norvasc] 10 mg PO DAILY 10/22/20 10/25/20 History Cephalexin [Keflex] 500 mg PO Q6HR 10/25/20 10/25/20 History Clindamycin Phosphate [Clindagel 1 applic TOPICAL BID 10/25/20 10/25/20 History 1%] Allergies Allergy/AdvReac Type Severity Reaction Status Date / Time spironolactone Allergy ANXIETY Verified 10/25/20 09:13 [From Aldactone] AND DEPRESSION morphine AdvReac Confusion Verified 10/25/20 09:13 OPIATES AdvReac Unknown AGITATION Uncoded 10/25/20 09:13 Surgical - Exam Vital Signs Temp Pulse BP Pulse Ox 97.4 F L 89 140/82 99 10/25/20 09:22 10/25/20 09:22 10/25/20 09:22 10/25/20 09:22 - General well developed, well nourished, no distress - Eyes PERRL - ENT normal pinna - Neck no masses - Respiratory normal expansion - Cardiovascular Rhythm: regular - Abdomen Abdomen: soft, non tender - Integumentary 3 cm right buttock skin lesion Assessment and Plan Assessment: Right buttock skin lesion. We'll perform excision.
[2020-10-25] MEDS ORDERED: KETAMINE 10 MG/ML 20 ML VIAL ONE (11:27)
[2020-10-25] MEDS ORDERED: MIDAZOLAM 2 MG/2 ML VIAL ONE (11:27)
[2020-10-25] MEDS ORDERED: PROPOFOL 10 MG/ML 20 ML VIAL IV ONE (11:27)
[2020-10-25] MEDS ORDERED: BUPIVACAINE (PF) 0.25% 30 ML VIAL SQ ONE (11:51)
--- NOTE | 2020-10-25 12:14 | P.OP ---
Date of Procedure: 10/25/20 Preoperative Diagnosis: Right buttock skin lesion Postoperative Diagnosis: Right buttock skin lesion Procedure(s) Performed: Excision of right buttock skin lesion Anesthesia: MAC Surgeon: Rolo Fried Pathology: other Condition: stable Disposition: PACU Description of Procedure: The patient's placed on the operating table in the lateral position. Her right buttock was prepped and draped usual sterile fashion. Patient had a 3 cm skin lesion. Elliptical skin incision was made around the lesion after the area was anesthetized 1% local Xylocaine. Using a large cautery the subcu tissue divided. The specimens of pathology. The Bovie hemostasis. The skin was closed interrupted 3-0 nylon suture. Patient top she will was sent to recovery room stable condition.
[2020-10-25 12:45] VITALS: BP 115/68; PULSE 84; RESP 16
== END 2020-10-25 13:14 | disposition home or self-care (01) ==
LOC: OR 08:52
PROVIDERS: ATTEND Surgery
DX: L72.0 Epidermal cyst (principal); L02.91 Cutaneous abscess, unspecified; L92.9 Granulomatous disorder of the skin and subcutaneous tissue, unspecified; J45.909 Unspecified asthma, uncomplicated; K21.9 Gastro-esophageal reflux disease without esophagitis; I10 Essential (primary) hypertension; M19.90 Unspecified osteoarthritis, unspecified site; E03.9 Hypothyroidism, unspecified; G47.00 Insomnia, unspecified; M47.9 Spondylosis, unspecified; Z90.89 Acquired absence of other organs; Z98.84 Bariatric surgery status; Z96.643 Presence of artificial hip joint, bilateral; Z96.651 Presence of right artificial knee joint; Z98.51 Tubal ligation status; Z98.890 Other specified postprocedural states; Z87.891 Personal history of nicotine dependence; Z80.52 Family history of malignant neoplasm of bladder; Z82.49 Family history of ischemic heart disease and other diseases of the circulatory system; Z79.82 Long term (current) use of aspirin; Z79.890 Hormone replacement therapy; Z79.899 Other long term (current) drug therapy; Z88.5 Allergy status to narcotic agent; Z88.8 Allergy status to other drugs, medicaments and biological substances
CPT/HCPCS: 88304; 11403; J2250; J1100; J2405; J2704; J1644

== ENCOUNTER → 2020-11-24 | Outpatient (CLI) | payer MEDICARE ==
--- NOTE | 2020-11-25 12:43 | BD ---
EXAMINATION TYPE: Axial Bone Density DATE OF EXAM: 11/24/2020 COMPARISON: 01/15/2017 CLINICAL HISTORY: Height: 61.2 IN Weight: 147 LBS RISK FACTORS HISTORY OF: Surgery to Hip(LLOYD)Wrist (right): When: LLOYD HIP REPLACEMENTS IN AGE 40'S; RT WRIST AGE 60 Active: LIMITED Diet low in dairy products/other sources of calcium: YES Postmenopausal woman: AGE 55 Take estrogen and/or progesterone medications: NOT NOW How long: TOOK CONTROL ON AND OFF FOR 10 YEARS Lost more than 2 inches in height since high school: YES 5" Frequent falls: YES DUE TO BALANCE MEDICATIONS: Thyroid Medications: YES Which medication: Synthroid How Lon+ YEARS Additional Medications: CALCIUM, VIT D, SYNTHROID, HCTZ,AMLODIPINE, ADVAIR,SEROQUEL, WELLBUTRIN, PRIL OSEC, VENTOLIN, CLINDAMYCIN,RETIN A GEL,BABY ASPIRIN,LAMOTRIGINE,LISINOPRIL, LUNESTA, SINGULAIR, P EXAM MEASUREMENTS: Bone mineral densitometry was performed using the [employer] System. Bone mineral density as measured about the Lumbar spine is: ----- L1-L4(G/cm2): 1.739 T Score Values are as follows: ----- L2: 5.6 ----- L3: 5.6 ----- L4: 4.3 ----- L1-L4: 4.7 Bone mineral density has: Increased 5.9% since study of: 01/15/2017 [employer]LOYD HIP REPLACEMENTS Bone mineral density about the L Wrist (g/cm2): 0.538 T Score values are as follows: -----Dist. R+U: 0.4 -----Prox. R+U: -2.1 -----Radius total: -2.3 Bone mineral density BASELINE OF LEFT WRIST IMPRESSION: Bone density likely falsely elevated in the low back due to reactive sclerosis from degen erative change. Osteopenia (T Score between -2.5 and -1) in the left forearm. There is slightly increased risk of fracture and the patient may be considered for treatment. Re-Screen 2-5 years. NOTE: T-SCORE=SD OF THE YOUNG ADULT MEAN.
== END | disposition home or self-care (01) ==
LOC: RADBDWWP 09:42
PROVIDERS: ATTEND Family Medicine
DX: Z13.820 Encounter for screening for osteoporosis (principal); M85.832 Other specified disorders of bone density and structure, left forearm
CPT/HCPCS: 77080

== ENCOUNTER → 2020-11-25 | Outpatient (CLI) | payer MEDICARE ==
--- NOTE | 2020-11-29 09:56 | MM ---
Reason for exam: screening (asymptomatic). Last mammogram was performed 1 year and 3 months ago. History: Patient is postmenopausal and had first child at age 31. Family history of premenopausal breast cancer in maternal cousin at age 40. Benign right mammotome panel of the right breast, May 23, 2010. Benign excisional biopsy of the left breast. Took estrogen for 22 years 6 months beginning at age 44. Took progesterone for 22 years 6 months beginning at age 44. Physical Findings: A clinical breast exam by your physician is recommended on an annual basis and results should be correlated with mammographic findings. MG 3D Screening Mammo W/Cad Bilateral CC and MLO view(s) were taken. Prior study comparison: August 14, 2019, bilateral MG 3d screening mammo w/cad. July 03, 2018, bilateral MG 3d screening mammo w/cad. There are scattered fibroglandular densities. ASSESSMENT: Benign, BI-RAD 2 RECOMMENDATION: Routine screening mammogram of both breasts in 1 year.
== END | disposition home or self-care (01) ==
LOC: RADMAMWWP 14:48
PROVIDERS: ATTEND Family Medicine
DX: Z12.31 Encounter for screening mammogram for malignant neoplasm of breast (principal); Z78.0 Asymptomatic menopausal state; Z80.3 Family history of malignant neoplasm of breast
CPT/HCPCS: 77063; 77067

== ENCOUNTER → 2022-01-12 | Outpatient (CLI) | payer MEDICARE ==
--- NOTE | 2022-01-13 15:44 | MM ---
Reason for Exam: Screening (asymptomatic). Last mammogram was performed 1 year(s) and 2 month(s) ago. Patient History: Menarche at age 10. First Full-Term at age 31. Late child-bearing (after 30). Postmenopausal. Estrogen, starting at age 44 for 22 years, 6 months. Progesterone, starting at age 44 for 22 years, 6 months. Benign Excisional Biopsy on the left side. 05/23/2010, Benign Core Biopsy on the right side. Maternal cousin had breast cancer, age 40. Risk Values: Allie 5 year model risk: 4.0%. NCI Lifetime model risk: 8.0%. Prior Study Comparison: 07/03/2018 Bilateral Screening Mammogram, [facility]. 08/14/2019 Bilateral Screening Mammogram, [facility]. 11/25/2020 Bilateral Screening Mammogram, [facility]. Tissue Density: The breast tissue is heterogeneously dense. This may lower the sensitivity of mammography. Findings: Analyzed By CAD. Breast density has increased compared to prior exam likely from interval weight loss. Microclip central right breast from prior biopsy. No significant change from prior exams. Overall Assessment: Benign, BI-RAD 2 Management: Screening Mammogram of both breasts in 1 year. 1. Patient should continue monthly self breast exams. 2. A clinical breast exam by your physician is recommended on an annual basis. 3. This exam should not preclude additional follow-up of suspicious palpable abnormalities. Electronically signed and approved by: Fuentes Stone M.D. Radiologist
== END | disposition home or self-care (01) ==
LOC: RADMAMWWP 12:57
PROVIDERS: ATTEND Family Medicine
DX: Z12.31 Encounter for screening mammogram for malignant neoplasm of breast (principal)
CPT/HCPCS: 77063; 77067

== ENCOUNTER 2022-01-23 17:29 | Emergency (ER) | payer MEDICARE ==
--- NOTE | 2022-01-23 19:36 | ED ---
General Adult HPI - General Source: patient, RN notes reviewed, old records reviewed Mode of arrival: ambulatory Limitations: no limitations <To Mulligan - Last Filed: 01/23/22 19:34> - History of Present Illness -: days(s) Radiation: non-radiation Consistency: constant Improves with: none Worsens with: none Associated Symptoms: confusion, loss of appetite Treatments Prior to Arrival: none <Sal Castaneda - Last Filed: 01/23/22 23:38> <Shamir Vega - Last Filed: 01/27/22 11:20> - General Chief complaint: Psychiatric Symptoms Stated complaint: EPS Eval Time Seen by Provider: 01/23/22 18:53 - History of Present Illness Initial comments: 76-year-old female history of bipolar depression presenting for psychiatric evaluation. Patient has had workup as an outpatient with chief complaint of frequent falls and balance issues. She had CT imaging and laboratory testing performed today. She has had a new nurse practitioner who is prescribing her psychiatric medication and she's had multiple dosing changes over the past several weeks. She is accompanied by her daughter and her were able to give a detailed history. She has previous history of bipolar depression with manic phases. She has been manic according to family over the past one week. (To Mulligan) - Related Data Home Medications Medication Instructions Recorded Confirmed Loratadine [Claritin] 10 mg PO DAILY 06/20/17 01/23/22 lisinopriL [Zestril] 20 mg PO BID 06/20/17 01/23/22 Folic Acid 0.4 mg PO DAILY 09/24/17 01/23/22 Albuterol Sulfate [Albuterol 1 puff PO RT-Q6H PRN 03/12/20 01/23/22 Sulfate Hfa] Calcium Carbonate/Vitamin D3 1 tab PO DAILY 03/12/20 01/23/22 [Calcium 600-Vit D3 20 Mcg (800 Iu)] Eszopiclone 3 mg PO HS 03/12/20 01/23/22 Fluticasone Propion/Salmeterol 2 puff INHALATION RT-BID 03/12/20 01/23/22 [Advair Hfa 230-21 Mcg Inhaler] Levothyroxine Sodium [Synthroid] 88 mcg PO MOTUWETHFRSA 03/12/20 01/23/22 Levothyroxine Sodium [Synthroid] 132 mcg PO AHMADI 03/12/20 01/23/22 Montelukast Sodium [Singulair] 10 mg PO HS 03/12/20 01/23/22 Multivit-Min/Iron/Folic/Lutein 1 tab PO DAILY 03/12/20 01/23/22 [Centrum Silver Women Tablet] Omeprazole 20 mg PO BID 03/12/20 01/23/22 buPROPion HCL [Wellbutrin XL] 300 mg PO DIRECTED 03/12/20 01/23/22 lamoTRIgine 150 mg PO HS 03/12/20 01/23/22 hydroCHLOROthiazide 25 mg PO MOTUWETHFRSA 04/27/20 01/23/22 amLODIPine [Norvasc] 10 mg PO HS 10/22/20 01/23/22 Alendronate Sodium [Fosamax] 70 mg PO WEEKLY 01/23/22 01/23/22 Desvenlafaxine Succinate [Pristiq 50 mg PO DIRECTED 01/23/22 01/23/22 ER] Desvenlafaxine [Pristiq ER] 100 mg PO DIRECTED 01/23/22 01/23/22 Pravastatin Sodium [Pravachol] 20 mg PO HS 01/23/22 01/23/22 QUEtiapine FUMARATE [SEROquel] 200 mg PO HS 01/23/22 01/23/22 hydroCHLOROthiazide 50 mg PO AHMADI 01/23/22 01/23/22 lamoTRIgine 200 mg PO DIRECTED 01/23/22 01/23/22 Allergies Allergy/AdvReac Type Severity Reaction Status Date / Time spironolactone Allergy ANXIETY Verified 01/23/22 21:50 [From Aldactone] AND DEPRESSION morphine AdvReac Confusion Verified 01/23/22 21:50 OPIATES AdvReac Unknown AGITATION Uncoded 01/23/22 21:50 Review of Systems ROS Other: All systems not noted in ROS Statement are negative. <To Mulligan - Last Filed: 01/23/22 19:34> ROS Other: All systems not noted in ROS Statement are negative. <Sal Castaneda - Last Filed: 01/23/22 23:38> ROS Other: All systems not noted in ROS Statement are negative. <Shamir Vega - Last Filed: 01/27/22 11:20> ROS Statement: Those systems with pertinent positive or pertinent negative responses have been documented in the HPI. Past Medical History Past Medical History: Asthma, GERD/Reflux, Hypertension, Osteoarthritis (OA), Thyroid Disorder Additional Past Medical History / Comment(s): Insomnia, past migraines, sinus problems at times, hypothyroid, arthritis-back pain, sciatica,, GALLBLADDER DISORDER History of Any Multi-Drug Resistant Organisms: None Reported Past Surgical History: Adenoidectomy, Appendectomy, Bariatric Surgery, Joint Replacement, Orthopedic Surgery, Tonsillectomy, Tubal Ligation Additional Past Surgical History / Comment(s): 2004 lap band, panniculectomy, R hip ORIF/total arthroplasty, L hip arthroplasty x 2, r knee ACL repair and total arthroplasty, R thumb sx, D&Cs, EGDs/colonoscopies, R breast benign bx. EGD Past Anesthesia/Blood Transfusion Reactions: Motion Sickness, Postoperative Nausea & Vomiting (PONV) Past Psychological History: ADD/ADHD, Anxiety, Bipolar, Depression, Panic Disorder Smoking Status: Former smoker - Past Family History Mother History Unknown: Yes Family Medical History: Cancer Additional Family Medical History / Comment(s): BLADDER CA- AT 70 YEARS OLD. Father History Unknown: Yes Family Medical History: Coronary Artery Disease (CAD), Myocardial Infarction ([place]) Additional Family Medical History / Comment(s): AT 60 YRS OLD <To Mulligan - Last Filed: 01/23/22 19:34> General Exam Limitations: no limitations General appearance: alert, in no apparent distress Head exam: Present: atraumatic, normocephalic Eye exam: Present: normal appearance ENT exam: Present: mucous membranes moist Neck exam: Present: normal inspection. Absent: tenderness, meningismus Respiratory exam: Present: normal lung sounds bilaterally. Absent: respiratory distress, wheezes Cardiovascular Exam: Present: regular rate, normal rhythm GI/Abdominal exam: Present: soft. Absent: distended, tenderness, guarding Extremities exam: Present: normal inspection Neurological exam: Present: alert, oriented X3. Absent: motor sensory deficit Psychiatric exam: Present: manic Skin exam: Present: warm, dry, intact. Absent: cyanosis, diaphoretic <To Mulligan - Last Filed: 01/23/22 19:34> General appearance: alert, in no apparent distress Head exam: Present: atraumatic, normocephalic, normal inspection Eye exam: Present: normal appearance, PERRL, EOMI. Absent: scleral icterus, conjunctival injection, periorbital swelling ENT exam: Present: normal exam, mucous membranes moist Neck exam: Present: normal inspection. Absent: tenderness, meningismus, lymphadenopathy Respiratory exam: Present: normal lung sounds bilaterally. Absent: respiratory distress, wheezes, rales, rhonchi, stridor Cardiovascular Exam: Present: regular rate, normal rhythm, normal heart sounds. Absent: systolic murmur, diastolic murmur, rubs, gallop, clicks GI/Abdominal exam: Present: soft, normal bowel sounds. Absent: distended, tenderness, guarding, rebound, rigid Extremities exam: Present: normal inspection, full ROM, normal capillary refill. Absent: tenderness, pedal edema, joint swelling, calf tenderness Back exam: Present: normal inspection Neurological exam: Present: alert, oriented X3, CN II-XII intact Psychiatric exam: Present: normal affect, normal mood Skin exam: Present: warm, dry, intact, normal color. Absent: rash <Sal Castaneda B - Last Filed: 01/23/22 23:38> Course <To Mulligan N - Last Filed: 01/23/22 19:34> <Sal Castaneda B - Last Filed: 01/23/22 23:38> Vital Signs 01/23/22 01/23/22 01/24/22 17:52 23:00 06:00 Temperature 98.2 F 98.7 F Pulse Rate 98 54 L 80 Respiratory 20 16 Rate Blood Pressure 126/85 169/82 165/85 O2 Sat by Pulse 97 98 96 Oximetry 01/24/22 01/24/22 01/24/22 07:37 08:41 11:08 Temperature 99.2 F Pulse Rate 91 77 97 Respiratory 18 18 18 Rate Blood Pressure 185/109 175/116 O2 Sat by Pulse 97 98 97 Oximetry 01/24/22 01/24/22 01/24/22 13:34 14:25 19:18 Temperature 98.4 F 98.3 F Pulse Rate 95 91 90 Respiratory 18 18 18 Rate Blood Pressure 145/95 150/77 O2 Sat by Pulse 97 95 97 Oximetry 01/25/22 01/25/22 01/25/22 06:29 14:00 21:10 Temperature 98.0 F Pulse Rate 83 82 92 Respiratory 16 18 18 Rate Blood Pressure 160/92 140/86 151/107 O2 Sat by Pulse 98 97 92 L Oximetry 01/26/22 01/26/22 01/26/22 06:50 08:22 11:22 Temperature Pulse Rate 99 83 94 Respiratory 18 16 16 Rate Blood Pressure 134/96 120/83 94/72 O2 Sat by Pulse 97 96 95 Oximetry 01/26/22 01/27/22 20:00 08:46 Temperature 98.5 F Pulse Rate 94 105 H Respiratory 20 16 Rate Blood Pressure 140/109 125/84 O2 Sat by Pulse 94 L 92 L Oximetry - Reevaluation(s) Reevaluation #1: 01/23/22 19:36 Cleared for EPS. (To Mulligan) Reevaluation #2: 01/23/22 23:38 Patient is seen and evaluated by EPS (Sal Castaneda) Medical Decision Making <Sal Castaneda - Last Filed: 01/23/22 23:38> - Lab Data Result diagrams: 01/27/22 06:14 01/27/22 06:14 <Shamir Vega - Last Filed: 01/27/22 11:20> - Medical Decision Making 76 female presented today for evaluation of psychiatric illness. Patient's his tory of bipolar history of current shekhar, patient be transferred for inpatient geriatric psychiatric evaluation and treatment (Sal Castaneda) I was notified by EPS that they may have a placement for the patient. I completed an updated certification. I spoke with the patient's . Patient is sedated at this time, however this is secondary to the medications, a nd is cooperative. Apparently has been having more manic-type symptoms over the last few weeks following a period of depression once medications were changed. No other acute complaints at this time. (Shamir Vega) - Lab Data Lab Results 01/23/22 01/23/22 01/23/22 Range/Units 18:45 23:34 23:34 WBC 6.6 (3.8-10.6) k/uL RBC 3.84 (3.80-5.40) m/uL Hgb 12.0 (11.4-16.0) gm/dL Hct 35.4 (34.0-46.0) % MCV 92.0 (80.0-100.0) fL MCH 31.1 (25.0-35.0) pg MCHC 33.8 (31.0-37.0) g/dL RDW 12.9 (11.5-15.5) % Plt Count 318 (150-450) k/uL MPV 7.9 Neutrophils % 58 % Lymphocytes % 18 % Monocytes % 7 % Eosinophils % 13 % Basophils % 0 % Neutrophils # 3.9 (1.3-7.7) k/uL Lymphocytes # 1.2 (1.0-4.8) k/uL Monocytes # 0.5 (0-1.0) k/uL Eosinophils # 0.9 H (0-0.7) k/uL Basophils # 0.0 (0-0.2) k/uL Sodium 135 L (137-145) mmol/L Potassium 2.6 L* (3.5-5.1) mmol/L Chloride 100 (98-107) mmol/L Carbon Dioxide 30 (22-30) mmol/L Anion Gap 5 mmol/L BUN 19 H (7-17) mg/dL Creatinine 0.86 (0.52-1.04) mg/dL Est GFR (CKD-EPI)AfAm 77 (>60 ml/min/1.73 sqM) Est GFR (CKD-EPI)NonAf 66 (>60 ml/min/1.73 sqM) Glucose 118 H (74-99) mg/dL Calcium 11.8 H (8.4-10.2) mg/dL Total Bilirubin 0.2 (0.2-1.3) mg/dL AST 24 (14-36) U/L ALT 20 (4-34) U/L Alkaline Phosphatase 89 (38-126) U/L Total Protein 6.4 (6.3-8.2) g/dL Albumin 3.5 (3.5-5.0) g/dL Urine Color Yellow Urine Appearance Cloudy H (Clear) Urine pH 6.5 (5.0-8.0) Ur Specific Kyle 1.016 (1.001-1.035) Urine Protein Trace H (Negative) Urine Glucose (UA) Negative (Negative) Urine Ketones Negative (Negative) Urine Blood Negative (Negative) Urine Nitrite Negative (Negative) Urine Bilirubin Negative (Negative) Urine Urobilinogen <2.0 (<2.0) mg/dL Ur Leukocyte Esterase Moderate H (Negative) Urine RBC 9 H (0-5) /hpf Urine WBC 9 H (0-5) /hpf Ur Squamous Epith Cells <1 (0-4) /hpf Urine Bacteria Rare H (None) /hpf Hyaline Casts 8 H (0-2) /lpf Urine Mucus Rare H (None) /hpf Urine Opiates Screen Not Detected (NotDetected) Ur Oxycodone Screen Not Detected (NotDetected) Urine Methadone Screen Not Detected (NotDetected) Ur Propoxyphene Screen Not Detected (NotDetected) Ur Barbiturates Screen Not Detected (NotDetected) U Tricyclic Antidepress Detected H (NotDetected) Ur Phencyclidine Scrn Not Detected (NotDetected) Ur Amphetamines Screen Not Detected (NotDetected) U Methamphetamines Scrn Not Detected (NotDetected) U Benzodiazepines Scrn Not Detected (NotDetected) Urine Cocaine Screen Not Detected (NotDetected) U Marijuana (THC) Screen Detected H (NotDetected) Coronavirus (PCR) (Not Detectd) 01/23/22 01/24/22 01/27/22 Range/Units 23:34 07:36 06:14 WBC 7.7 (3.8-10.6) k/uL RBC 4.23 (3.80-5.40) m/uL Hgb 12.8 (11.4-16.0) gm/dL Hct 38.7 (34.0-46.0) % MCV 91.5 (80.0-100.0) fL MCH 30.2 (25.0-35.0) pg MCHC 33.1 (31.0-37.0) g/dL RDW 12.4 (11.5-15.5) % Plt Count 328 (150-450) k/uL MPV 7.9 Neutrophils % 62 % Lymphocytes % 21 % Monocytes % 6 % Eosinophils % 9 % Basophils % 1 % Neutrophils # 4.7 (1.3-7.7) k/uL Lymphocytes # 1.6 (1.0-4.8) k/uL Monocytes # 0.5 (0-1.0) k/uL Eosinophils # 0.7 (0-0.7) k/uL Basophils # 0.0 (0-0.2) k/uL Sodium 136 L (137-145) mmol/L Potassium 3.4 L (3.5-5.1) mmol/L Chloride 101 (98-107) mmol/L Carbon Dioxide 31 H (22-30) mmol/L Anion Gap 4 mmol/L BUN 17 (7-17) mg/dL Creatinine 0.90 (0.52-1.04) mg/dL Est GFR (CKD-EPI)AfAm 72 (>60 ml/min/1.73 sqM) Est GFR (CKD-EPI)NonAf 63 (>60 ml/min/1.73 sqM) Glucose 106 H (74-99) mg/dL Calcium 11.4 H (8.4-10.2) mg/dL Total Bilirubin 0.4 (0.2-1.3) mg/dL AST 27 (14-36) U/L ALT 21 (4-34) U/L Alkaline Phosphatase 91 (38-126) U/L Total Protein 6.7 (6.3-8.2) g/dL Albumin 3.7 (3.5-5.0) g/dL Urine Color Urine Appearance (Clear) Urine pH (5.0-8.0) Ur Specific Kyle (1.001-1.035) Urine Protein (Negative) Urine Glucose (UA) (Negative) Urine Ketones (Negative) Urine Blood (Negative) Urine Nitrite (Negative) Urine Bilirubin (Negative) Urine Urobilinogen (<2.0) mg/dL Ur Leukocyte Esterase (Negative) Urine RBC (0-5) /hpf Urine WBC (0-5) /hpf Ur Squamous Epith Cells (0-4) /hpf Urine Bacteria (None) /hpf Hyaline Casts (0-2) /lpf Urine Mucus (None) /hpf Urine Opiates Screen (NotDetected) Ur Oxycodone Screen (NotDetected) Urine Methadone Screen (NotDetected) Ur Propoxyphene Screen (NotDetected) Ur Barbiturates Screen (NotDetected) U Tricyclic Antidepress (NotDetected) Ur Phencyclidine Scrn (NotDetected) Ur Amphetamines Screen (NotDetected) U Methamphetamines Scrn (NotDetected) U Benzodiazepines Scrn (NotDetected) Urine Cocaine Screen (NotDetected) U Marijuana (THC) Screen (NotDetected) Coronavirus (PCR) Not Detected (Not Detectd) 01/27/22 Range/Units 06:14 WBC (3.8-10.6) k/uL RBC (3.80-5.40) m/uL Hgb (11.4-16.0) gm/dL Hct (34.0-46.0) % MCV (80.0-100.0) fL MCH (25.0-35.0) pg MCHC (31.0-37.0) g/dL RDW (11.5-15.5) % Plt Count (150-450) k/uL MPV Neutrophils % % Lymphocytes % % Monocytes % % Eosinophils % % Basophils % % Neutrophils # (1.3-7.7) k/uL Lymphocytes # (1.0-4.8) k/uL Monocytes # (0-1.0) k/uL Eosinophils # (0-0.7) k/uL Basophils # (0-0.2) k/uL Sodium 137 (137-145) mmol/L Potassium 3.2 L (3.5-5.1) mmol/L Chloride 102 (98-107) mmol/L Carbon Dioxide 30 (22-30) mmol/L Anion Gap 5 mmol/L BUN 24 H (7-17) mg/dL Creatinine 1.38 H (0.52-1.04) mg/dL Est GFR (CKD-EPI)AfAm 43 (>60 ml/min/1.73 sqM) Est GFR (CKD-EPI)NonAf 37 (>60 ml/min/1.73 sqM) Glucose 108 H (74-99) mg/dL Calcium 12.3 H (8.4-10.2) mg/dL Total Bilirubin 0.4 (0.2-1.3) mg/dL AST 24 (14-36) U/L ALT 18 (4-34) U/L Alkaline Phosphatase 78 (38-126) U/L Total Protein 6.7 (6.3-8.2) g/dL Albumin 3.7 (3.5-5.0) g/dL Urine Color Urine Appearance (Clear) Urine pH (5.0-8.0) Ur Specific Kyle (1.001-1.035) Urine Protein (Negative) Urine Glucose (UA) (Negative) Urine Ketones (Negative) Urine Blood (Negative) Urine Nitrite (Negative) Urine Bilirubin (Negative) Urine Urobilinogen (<2.0) mg/dL Ur Leukocyte Esterase (Negative) Urine RBC (0-5) /hpf Urine WBC (0-5) /hpf Ur Squamous Epith Cells (0-4) /hpf Urine Bacteria (None) /hpf Hyaline Casts (0-2) /lpf Urine Mucus (None) /hpf Urine Opiates Screen (NotDetected) Ur Oxycodone Screen (NotDetected) Urine Methadone Screen (NotDetected) Ur Propoxyphene Screen (NotDetected) Ur Barbiturates Screen (NotDetected) U Tricyclic Antidepress (NotDetected) Ur Phencyclidine Scrn (NotDetected) Ur Amphetamines Screen (NotDetected) U Methamphetamines Scrn (NotDetected) U Benzodiazepines Scrn (NotDetected) Urine Cocaine Screen (NotDetected) U Marijuana (THC) Screen (NotDetected) Coronavirus (PCR) (Not Detectd) Disposition <To Mulligan - Last Filed: 01/23/22 19:34> Is patient prescribed a controlled substance at d/c from ED?: No <Sal Castaneda - Last Filed: 01/23/22 23:38> <Shamir Vega - Last Filed: 01/27/22 11:20> Clinical Impression: Bipolar disorder, Psychosis, Monopolar shekhar, Bipolar 1 disorder, depressed, Generalized anxiety disorder, ADHD (attention deficit hyperactivity disorder), inattentive type, Acute anxiety Disposition: TRANSFER TO PSYCH HOSP/UNIT Condition: Fair Referrals: Dez Bowen DO [Primary Care Provider] - 1-2 days
[2022-01-23 20:00] LABS: Appearance,Urine Cloudy (Clear); Bacteria,Urine Rare /hpf; Bilirubin,Urine Negative (Negative); Blood,Urine Negative (Negative); Color,Urine Yellow; Glucose,Urine (UA) Negative (Negative); Hyaline Casts,Urine 8 /lpf (0-2); Ketones,Urine Negative (Negative); Leukocyte Esterase,Urine Moderate (Negative); Mucus,Urine Rare /hpf; Nitrite,Urine Negative (Negative); PH, Urine 6.5 (5.0-8.0); Protein,Urine Trace (Negative); RBC,Urine 9 /hpf (0-5); Specific Gravity,Urine 1.016 (1.001-1.035); Squamous Epithelial Cell,Urine <1 /hpf (0-4); Urobilinogen,Urine <2.0 mg/dL (<2.0); WBC,Urine 9 /hpf (0-5)
[2022-01-23 20:16] LABS: Amphetamine Screen,Urine Not Detected (NotDetected); Barbiturate Screen,Urine Not Detected (NotDetected); Benzodiazepines Screen,Urine Not Detected (NotDetected); Cocaine Screen,Urine Not Detected (NotDetected); Methadone Screen, Urine Not Detected (NotDetected); Opiate Screen,Urine Not Detected (NotDetected); Oxycodone Screen, Urine Not Detected (NotDetected); Phencyclidine Screen,Urine Not Detected (NotDetected); Tricyclic Antidepressant,Urine Detected (NotDetected); Urn Cannabinoid Scrn Detected (NotDetected)
--- NOTE | 2022-01-23 20:25 | XR ---
EXAMINATION TYPE: XR lumbosacral spine min 4V DATE OF EXAM: 01/23/2022 COMPARISON: NONE HISTORY: Back pain TECHNIQUE: 5 view FINDINGS: There is degenerative disc space narrowing throughout the lumbar spine with spurring and va cuum disc. No compression fracture. There is a retrolisthesis of the L3 vertebral body. Abdominal aor ta is atheromatous. Sacroiliac joints are intact. No focal bone destruction. There is very slight dex troscoliosis. IMPRESSION: There is multilevel spondylotic changes. Mild dextroscoliosis and L3 retrolisthesis. No fracture seen .
[2022-01-23] MEDS ORDERED: IBUPROFEN 600 MG TAB PO STA (23:40)
[2022-01-23] MEDS ORDERED: ACETAMINOPHEN TAB 500 MG TAB PO STA (23:40)
[2022-01-23 23:45] LABS: Basophils % (A) 0 %; Eosinophils # (A) 0.9 k/uL (0-0.7); Eosinophils % (A) 13 %; HCT 35.4 % (34.0-46.0); Lymphocytes # (A) 1.2 k/uL (1.0-4.8); Lymphocytes % (A) 18 %; MCH 31.1 pg (25.0-35.0); MCHC 33.8 g/dL (31.0-37.0); Mean Platelet Volume 7.9; Monocytes # (A) 0.5 k/uL (0-1.0); Monocytes % (A) 7 %; Neutrophils # (A) 3.9 k/uL (1.3-7.7); Neutrophils % (A) 58 %; Platelet Count 318 k/uL (150-450); RBC 3.84 m/uL (3.80-5.40); RDW 12.9 % (11.5-15.5); WBC 6.6 k/uL (3.8-10.6)
[2022-01-23] MEDS ORDERED: POTASSIUM BICARBONATE/CIT AC 20 MEQ TABLET.EFF PO STA ×2 (23:45)
[2022-01-23 23:56] LABS: Albumin 3.5 g/dL (3.5-5.0); Calcium 11.8 mg/dL (8.4-10.2); Total Bilirubin 0.2 mg/dL (0.2-1.3); Total Protein 6.4 g/dL (6.3-8.2)
[2022-01-24 00:07] LABS: Potassium 2.6 mmol/L (3.5-5.1)
[2022-01-24] MEDS ORDERED: lamoTRIgine 100 MG TAB PO STA (01:55)
[2022-01-24 08:17] LABS: Albumin 3.7 g/dL (3.5-5.0); Calcium 11.4 mg/dL (8.4-10.2); Potassium 3.4 mmol/L (3.5-5.1); Total Bilirubin 0.4 mg/dL (0.2-1.3); Total Protein 6.7 g/dL (6.3-8.2)
[2022-01-24] MEDS: lisinopriL 20 MG TAB PO SCH ×2 (09:15→20:21)
[2022-01-24] MEDS: LEVOTHYROXINE 88 MCG TAB PO SCH (09:15)
[2022-01-24] MEDS: hydroCHLOROthiazide 25 MG TAB PO SCH (09:15)
[2022-01-24] MEDS: SODIUM CHLORIDE 0.9% 1,000 ML IV SCH ×2 (09:15→20:22)
[2022-01-24] MEDS ORDERED: CEPHALEXIN 500 MG CAP PO STA (09:19)
[2022-01-24] MEDS ORDERED: NON FORMULARY DRUG (Desvenlafaxine [Pristiq Er] 100 MG Tab.Er.24h) PO SCH (16:15)
[2022-01-24] MEDS ORDERED: buPROPion XL 300 MG TAB.ER.24H PO SCH (16:15)
[2022-01-24] MEDS ORDERED: DESVENLAFAXINE SUCCINATE 50 MG TAB.ER.24H PO SCH (16:15)
[2022-01-24] MEDS: ACETAMINOPHEN TAB 325 MG TAB PO PRN (20:19)
[2022-01-24] MEDS: PANTOPRAZOLE 40 MG TABLET PO SCH (20:21)
[2022-01-24] MEDS: amLODIPine 10 MG TAB PO SCH (20:21)
[2022-01-24] MEDS: SYMBICORT 160-4.5 MCG INHALER INHALATION SCH (20:24)
[2022-01-24] MEDS ORDERED: TEMAZEPAM 15 MG CAP PO SCH (21:00)
[2022-01-24] MEDS: lamoTRIgine 100 MG TAB PO SCH (21:24)
[2022-01-24] MEDS: PRAVASTATIN SODIUM 20 MG TAB PO SCH (21:24)
[2022-01-24] MEDS: TEMAZEPAM 7.5 MG CAP PO SCH (23:28)
[2022-01-24] MEDS: QUEtiapine 200 MG TAB PO SCH (23:28)
[2022-01-25] MEDS: LEVOTHYROXINE 88 MCG TAB PO SCH (06:31)
[2022-01-25] MEDS: PANTOPRAZOLE 40 MG TABLET PO SCH ×2 (10:45→21:12)
[2022-01-25] MEDS: hydroCHLOROthiazide 25 MG TAB PO SCH (10:45)
[2022-01-25] MEDS: CALCIUM CARB-VIT D 500 MG-5 MCG TAB PO SCH (10:45)
[2022-01-25] MEDS: FOLIC ACID 1 MG TAB PO SCH (10:45)
[2022-01-25] MEDS: SYMBICORT 160-4.5 MCG INHALER INHALATION SCH ×2 (10:45→22:25)
[2022-01-25] MEDS: lisinopriL 20 MG TAB PO SCH ×2 (10:45→21:12)
[2022-01-25] MEDS: ACETAMINOPHEN TAB 325 MG TAB PO PRN ×2 (12:25→22:32)
[2022-01-25] MEDS: TEMAZEPAM 7.5 MG CAP PO SCH (21:12)
[2022-01-25] MEDS: QUEtiapine 200 MG TAB PO SCH (21:12)
[2022-01-25] MEDS: PRAVASTATIN SODIUM 20 MG TAB PO SCH (21:12)
[2022-01-25] MEDS: amLODIPine 10 MG TAB PO SCH (21:12)
[2022-01-25] MEDS: lamoTRIgine 100 MG TAB PO SCH (21:14)
[2022-01-25] MEDS: SODIUM CHLORIDE 0.9% 1,000 ML IV SCH (22:16)
[2022-01-26] MEDS: LEVOTHYROXINE 88 MCG TAB PO SCH (06:46)
[2022-01-26] MEDS: PANTOPRAZOLE 40 MG TABLET PO SCH ×2 (08:20→20:33)
[2022-01-26] MEDS: FOLIC ACID 1 MG TAB PO SCH (08:20)
[2022-01-26] MEDS: lisinopriL 20 MG TAB PO SCH ×3 (08:21→20:33)
[2022-01-26] MEDS: hydroCHLOROthiazide 25 MG TAB PO SCH ×2 (08:21→11:04)
[2022-01-26] MEDS: CALCIUM CARB-VIT D 500 MG-5 MCG TAB PO SCH (08:21)
[2022-01-26] MEDS: SYMBICORT 160-4.5 MCG INHALER INHALATION SCH ×2 (11:04→20:34)
[2022-01-26] MEDS: lamoTRIgine 100 MG TAB PO SCH (20:33)
[2022-01-26] MEDS: PRAVASTATIN SODIUM 20 MG TAB PO SCH (20:33)
[2022-01-26] MEDS: TEMAZEPAM 7.5 MG CAP PO SCH (20:33)
[2022-01-26] MEDS: QUEtiapine 200 MG TAB PO SCH (20:33)
[2022-01-26] MEDS: amLODIPine 10 MG TAB PO SCH (20:33)
[2022-01-27 06:25] LABS: Basophils % (A) 1 %; Eosinophils # (A) 0.7 k/uL (0-0.7); Eosinophils % (A) 9 %; HCT 38.7 % (34.0-46.0); HGB 12.8 gm/dL (11.4-16.0); Lymphocytes # (A) 1.6 k/uL (1.0-4.8); Lymphocytes % (A) 21 %; MCH 30.2 pg (25.0-35.0); MCHC 33.1 g/dL (31.0-37.0); MCV 91.5 fL (80.0-100.0); Mean Platelet Volume 7.9; Monocytes # (A) 0.5 k/uL (0-1.0); Monocytes % (A) 6 %; Neutrophils # (A) 4.7 k/uL (1.3-7.7); Neutrophils % (A) 62 %; Platelet Count 328 k/uL (150-450); RBC 4.23 m/uL (3.80-5.40); RDW 12.4 % (11.5-15.5); WBC 7.7 k/uL (3.8-10.6)
[2022-01-27 06:45] LABS: Albumin 3.7 g/dL (3.5-5.0); Calcium 12.3 mg/dL (8.4-10.2); Potassium 3.2 mmol/L (3.5-5.1); Total Bilirubin 0.4 mg/dL (0.2-1.3); Total Protein 6.7 g/dL (6.3-8.2)
[2022-01-27] MEDS ORDERED: ACETAMINOPHEN TAB 325 MG TAB PO PRN (06:51)
--- NOTE | 2022-01-27 07:00 | XR ---
EXAMINATION TYPE: XR chest 1V portable DATE OF EXAM: 01/27/2022 6:04 AM COMPARISON: Chest radiographs from 05/24/2017 TECHNIQUE: XR chest 1V portable Portable AP radiograph of the chest. CLINICAL INDICATION:Female, 76 years old with history of cough; FINDINGS: Lungs/Pleura: Bibasilar airspace opacities are present increased. There is no evidence of pleural eff usion, or pneumothorax. Pulmonary vascularity: Mild pulmonary vascular congestion. Heart/mediastinum: Cardiomediastinal silhouette is prominent in size. Musculoskeletal: No acute osseous pathology. IMPRESSION: Increased bibasilar airspace opacities correlate for pneumonia/aspiration.
[2022-01-27] MEDS: LEVOTHYROXINE 88 MCG TAB PO SCH ×2 (07:27→22:34)
[2022-01-27] MEDS: PANTOPRAZOLE 40 MG TABLET PO SCH ×2 (09:01→18:42)
[2022-01-27] MEDS: CALCIUM CARB-VIT D 500 MG-5 MCG TAB PO SCH (09:02)
[2022-01-27] MEDS: hydroCHLOROthiazide 25 MG TAB PO SCH (09:02)
[2022-01-27] MEDS: FOLIC ACID 1 MG TAB PO SCH (09:02)
[2022-01-27] MEDS: SYMBICORT 160-4.5 MCG INHALER INHALATION SCH ×2 (09:02→20:51)
[2022-01-27] MEDS: lisinopriL 20 MG TAB PO SCH ×2 (09:02→20:50)
[2022-01-27 20:58] LABS: Appearance,Urine Clear (Clear); Bacteria,Urine Rare /hpf; Bilirubin,Urine Negative (Negative); Blood,Urine Negative (Negative); Color,Urine Yellow; Glucose,Urine (UA) Negative (Negative); Hyaline Casts,Urine 16 /lpf (0-2); Ketones,Urine Negative (Negative); Leukocyte Esterase,Urine Large (Negative); Mucus,Urine Rare /hpf; Nitrite,Urine Negative (Negative); Protein,Urine Trace (Negative); RBC,Urine 2 /hpf (0-5); Specific Gravity,Urine 1.012 (1.001-1.035); Squamous Epithelial Cell,Urine 1 /hpf (0-4); Urobilinogen,Urine <2.0 mg/dL (<2.0); WBC,Urine 23 /hpf (0-5)
[2022-01-27] MEDS ORDERED: amLODIPine 10 MG TAB PO SCH (21:00)
[2022-01-27] MEDS ORDERED: TEMAZEPAM 7.5 MG CAP PO SCH (21:00)
[2022-01-27] MEDS ORDERED: PRAVASTATIN SODIUM 20 MG TAB PO SCH (21:00)
[2022-01-27] MEDS ORDERED: QUEtiapine 200 MG TAB PO SCH (21:00)
[2022-01-27] MEDS ORDERED: lamoTRIgine 100 MG TAB PO SCH (21:00)
[2022-01-28] MEDS: FOLIC ACID 1 MG TAB PO SCH (08:02)
[2022-01-28] MEDS: CALCIUM CARB-VIT D 500 MG-5 MCG TAB PO SCH (08:03)
[2022-01-28] MEDS: PANTOPRAZOLE 40 MG TABLET PO SCH ×2 (08:03→18:09)
[2022-01-28] MEDS: LEVOTHYROXINE 88 MCG TAB PO SCH (08:03)
[2022-01-28] MEDS: lisinopriL 20 MG TAB PO SCH (08:03)
[2022-01-28] MEDS: hydroCHLOROthiazide 25 MG TAB PO SCH (08:03)
[2022-01-28 08:22] VITALS: RESP 16
[2022-01-28] MEDS ORDERED: cefTRIAXone IN SWFI 1,000 MG/10 ML SYRINGE IVP STA (14:56)
[2022-01-28] MEDS ORDERED: CEPHALEXIN 500 MG CAP PO STA (15:10)
--- NOTE | 2022-01-28 15:35 | ED ---
Medical Decision Making - Medical Decision Making The patient rested comfortably throughout the day have evidence of a UTI the patient was started on antibiotics additionally and certification was completed by me. I did discuss this with the patient and her . Transfer is pending - Lab Data Result diagrams: 01/27/22 06:14 01/27/22 06:14 Lab Results 01/23/22 01/23/22 01/23/22 Range/Units 18:45 23:34 23:34 WBC 6.6 (3.8-10.6) k/uL RBC 3.84 (3.80-5.40) m/uL Hgb 12.0 (11.4-16.0) gm/dL Hct 35.4 (34.0-46.0) % MCV 92.0 (80.0-100.0) fL MCH 31.1 (25.0-35.0) pg MCHC 33.8 (31.0-37.0) g/dL RDW 12.9 (11.5-15.5) % Plt Count 318 (150-450) k/uL MPV 7.9 Neutrophils % 58 % Lymphocytes % 18 % Monocytes % 7 % Eosinophils % 13 % Basophils % 0 % Neutrophils # 3.9 (1.3-7.7) k/uL Lymphocytes # 1.2 (1.0-4.8) k/uL Monocytes # 0.5 (0-1.0) k/uL Eosinophils # 0.9 H (0-0.7) k/uL Basophils # 0.0 (0-0.2) k/uL Sodium 135 L (137-145) mmol/L Potassium 2.6 L* (3.5-5.1) mmol/L Chloride 100 (98-107) mmol/L Carbon Dioxide 30 (22-30) mmol/L Anion Gap 5 mmol/L BUN 19 H (7-17) mg/dL Creatinine 0.86 (0.52-1.04) mg/dL Est GFR (CKD-EPI)AfAm 77 (>60 ml/min/1.73 sqM) Est GFR (CKD-EPI)NonAf 66 (>60 ml/min/1.73 sqM) Glucose 118 H (74-99) mg/dL Calcium 11.8 H (8.4-10.2) mg/dL Total Bilirubin 0.2 (0.2-1.3) mg/dL AST 24 (14-36) U/L ALT 20 (4-34) U/L Alkaline Phosphatase 89 (38-126) U/L Total Protein 6.4 (6.3-8.2) g/dL Albumin 3.5 (3.5-5.0) g/dL Urine Color Yellow Urine Appearance Cloudy H (Clear) Urine pH 6.5 (5.0-8.0) Ur Specific [place] 1.016 (1.001-1.035) Urine Protein Trace H (Negative) Urine Glucose (UA) Negative (Negative) Urine Ketones Negative (Negative) Urine Blood Negative (Negative) Urine Nitrite Negative (Negative) Urine Bilirubin Negative (Negative) Urine Urobilinogen <2.0 (<2.0) mg/dL Ur Leukocyte Esterase Moderate H (Negative) Urine RBC 9 H (0-5) /hpf Urine WBC 9 H (0-5) /hpf Ur Squamous Epith Cells <1 (0-4) /hpf Urine Bacteria Rare H (None) /hpf Hyaline Casts 8 H (0-2) /lpf Urine Mucus Rare H (None) /hpf Urine Opiates Screen Not Detected (NotDetected) Ur Oxycodone Screen Not Detected (NotDetected) Urine Methadone Screen Not Detected (NotDetected) Ur Propoxyphene Screen Not Detected (NotDetected) Ur Barbiturates Screen Not Detected (NotDetected) U Tricyclic Antidepress Detected H (NotDetected) Ur Phencyclidine Scrn Not Detected (NotDetected) Ur Amphetamines Screen Not Detected (NotDetected) U Methamphetamines Scrn Not Detected (NotDetected) U Benzodiazepines Scrn Not Detected (NotDetected) Urine Cocaine Screen Not Detected (NotDetected) U Marijuana (THC) Screen Detected H (NotDetected) Coronavirus (PCR) (Not Detectd) Influenza Type A (PCR) (Not Detectd) Influenza Type B (PCR) (Not Detectd) RSV (PCR) (Not Detectd) SARS-CoV-2 (PCR) (Not Detectd) 01/23/22 01/24/22 01/27/22 Range/Units 23:34 07:36 06:14 WBC 7.7 (3.8-10.6) k/uL RBC 4.23 (3.80-5.40) m/uL Hgb 12.8 (11.4-16.0) gm/dL Hct 38.7 (34.0-46.0) % MCV 91.5 (80.0-100.0) fL MCH 30.2 (25.0-35.0) pg MCHC 33.1 (31.0-37.0) g/dL RDW 12.4 (11.5-15.5) % Plt Count 328 (150-450) k/uL MPV 7.9 Neutrophils % 62 % Lymphocytes % 21 % Monocytes % 6 % Eosinophils % 9 % Basophils % 1 % Neutrophils # 4.7 (1.3-7.7) k/uL Lymphocytes # 1.6 (1.0-4.8) k/uL Monocytes # 0.5 (0-1.0) k/uL Eosinophils # 0.7 (0-0.7) k/uL Basophils # 0.0 (0-0.2) k/uL Sodium 136 L (137-145) mmol/L Potassium 3.4 L (3.5-5.1) mmol/L Chloride 101 (98-107) mmol/L Carbon Dioxide 31 H (22-30) mmol/L Anion Gap 4 mmol/L BUN 17 (7-17) mg/dL Creatinine 0.90 (0.52-1.04) mg/dL Est GFR (CKD-EPI)AfAm 72 (>60 ml/min/1.73 sqM) Est GFR (CKD-EPI)NonAf 63 (>60 ml/min/1.73 sqM) Glucose 106 H (74-99) mg/dL Calcium 11.4 H (8.4-10.2) mg/dL Total Bilirubin 0.4 (0.2-1.3) mg/dL AST 27 (14-36) U/L ALT 21 (4-34) U/L Alkaline Phosphatase 91 (38-126) U/L Total Protein 6.7 (6.3-8.2) g/dL Albumin 3.7 (3.5-5.0) g/dL Urine Color Urine Appearance (Clear) Urine pH (5.0-8.0) Ur Specific [place] (1.001-1.035) Urine Protein (Negative) Urine Glucose (UA) (Negative) Urine Ketones (Negative) Urine Blood (Negative) Urine Nitrite (Negative) Urine Bilirubin (Negative) Urine Urobilinogen (<2.0) mg/dL Ur Leukocyte Esterase (Negative) Urine RBC (0-5) /hpf Urine WBC (0-5) /hpf Ur Squamous Epith Cells (0-4) /hpf Urine Bacteria (None) /hpf Hyaline Casts (0-2) /lpf Urine Mucus (None) /hpf Urine Opiates Screen (NotDetected) Ur Oxycodone Screen (NotDetected) Urine Methadone Screen (NotDetected) Ur Propoxyphene Screen (NotDetected) Ur Barbiturates Screen (NotDetected) U Tricyclic Antidepress (NotDetected) Ur Phencyclidine Scrn (NotDetected) Ur Amphetamines Screen (NotDetected) U Methamphetamines Scrn (NotDetected) U Benzodiazepines Scrn (NotDetected) Urine Cocaine Screen (NotDetected) U Marijuana (THC) Screen (NotDetected) Coronavirus (PCR) Not Detected (Not Detectd) Influenza Type A (PCR) (Not Detectd) Influenza Type B (PCR) (Not Detectd) RSV (PCR) (Not Detectd) SARS-CoV-2 (PCR) (Not Detectd) 01/27/22 01/27/22 01/28/22 Range/Units 06:14 20:51 13:10 WBC (3.8-10.6) k/uL RBC (3.80-5.40) m/uL Hgb (11.4-16.0) gm/dL Hct (34.0-46.0) % MCV (80.0-100.0) fL MCH (25.0-35.0) pg MCHC (31.0-37.0) g/dL RDW (11.5-15.5) % Plt Count (150-450) k/uL MPV Neutrophils % % Lymphocytes % % Monocytes % % Eosinophils % % Basophils % % Neutrophils # (1.3-7.7) k/uL Lymphocytes # (1.0-4.8) k/uL Monocytes # (0-1.0) k/uL Eosinophils # (0-0.7) k/uL Basophils # (0-0.2) k/uL Sodium 137 (137-145) mmol/L Potassium 3.2 L (3.5-5.1) mmol/L Chloride 102 (98-107) mmol/L Carbon Dioxide 30 (22-30) mmol/L Anion Gap 5 mmol/L BUN 24 H (7-17) mg/dL Creatinine 1.38 H (0.52-1.04) mg/dL Est GFR (CKD-EPI)AfAm 43 (>60 ml/min/1.73 sqM) Est GFR (CKD-EPI)NonAf 37 (>60 ml/min/1.73 sqM) Glucose 108 H (74-99) mg/dL Calcium 12.3 H (8.4-10.2) mg/dL Total Bilirubin 0.4 (0.2-1.3) mg/dL AST 24 (14-36) U/L ALT 18 (4-34) U/L Alkaline Phosphatase 78 (38-126) U/L Total Protein 6.7 (6.3-8.2) g/dL Albumin 3.7 (3.5-5.0) g/dL Urine Color Yellow Urine Appearance Clear (Clear) Urine pH 7.0 (5.0-8.0) Ur Specific [place] 1.012 (1.001-1.035) Urine Protein Trace H (Negative) Urine Glucose (UA) Negative (Negative) Urine Ketones Negative (Negative) Urine Blood Negative (Negative) Urine Nitrite Negative (Negative) Urine Bilirubin Negative (Negative) Urine Urobilinogen <2.0 (<2.0) mg/dL Ur Leukocyte Esterase Large H (Negative) Urine RBC 2 (0-5) /hpf Urine WBC 23 H (0-5) /hpf Ur Squamous Epith Cells 1 (0-4) /hpf Urine Bacteria Rare H (None) /hpf Hyaline Casts 16 H (0-2) /lpf Urine Mucus Rare H (None) /hpf Urine Opiates Screen (NotDetected) Ur Oxycodone Screen (NotDetected) Urine Methadone Screen (NotDetected) Ur Propoxyphene Screen (NotDetected) Ur Barbiturates Screen (NotDetected) U Tricyclic Antidepress (NotDetected) Ur Phencyclidine Scrn (NotDetected) Ur Amphetamines Screen (NotDetected) U Methamphetamines Scrn (NotDetected) U Benzodiazepines Scrn (NotDetected) Urine Cocaine Screen (NotDetected) U Marijuana (THC) Screen (NotDetected) Coronavirus (PCR) (Not Detectd) Influenza Type A (PCR) Not Detected (Not Detectd) Influenza Type B (PCR) Not Detected (Not Detectd) RSV (PCR) Not Detected (Not Detectd) SARS-CoV-2 (PCR) Not Detected (Not Detectd) Disposition Clinical Impression: Bipolar disorder, Psychosis, Monopolar shekhar, Bipolar 1 disorder, depressed, Generalized anxiety disorder, ADHD (attention deficit hyperactivity disorder), inattentive type, Acute anxiety Disposition: TRANSFER TO PSYCH HOSP/UNIT Condition: Fair Referrals: Dez Bowen DO [Primary Care Provider] - 1-2 days Decision Date: 01/28/22 Decision Time: 15:00
[2022-01-28 19:15] VITALS: BP 128/78; PULSE 79; TEMP 98.1
[2022-01-29] MEDS ORDERED: CEPHALEXIN 500 MG CAP PO SCH
[2022-01-29] MEDS ORDERED: LEVOTHYROXINE 88 MCG TAB PO SCH ×2 (06:30)
== END 2022-01-28 19:12 ==
LOC: EC 17:29
DX: F31.5 Bipolar disorder, current episode depressed, severe, with psychotic features (principal); F90.9 Attention-deficit hyperactivity disorder, unspecified type; F41.1 Generalized anxiety disorder; I10 Essential (primary) hypertension; K21.9 Gastro-esophageal reflux disease without esophagitis; Z79.83 Long term (current) use of bisphosphonates; Z87.891 Personal history of nicotine dependence; Z88.8 Allergy status to other drugs, medicaments and biological substances; Z88.1 Allergy status to other antibiotic agents
CPT/HCPCS: 36415; 72110; 80053; 80306; 81001; 82075; 85025; 87635; 87636; 93005; 99285

== ENCOUNTER → 2022-01-23 | Outpatient (CLI) | payer MEDICARE ==
--- NOTE | 2022-01-23 13:13 | CT ---
EXAMINATION TYPE: CT brain wo con DATE OF EXAM: 01/23/2022 COMPARISON: 05/24/2017 HISTORY: loss of balance, falls CT DLP: 1165 mGycm Automated exposure control for dose reduction was used. FINDINGS: Moderate generalized degenerative change. Artifact limits assessment for subtle hemorrhage. No gross acute intracranial hemorrhage or mass effect. No midline shift. Faint low-attenuation white matter is nonspecific but most remote white matter disease. Small cervical areas of low attenuation involving the basal ganglia compatible with remote Calvarium intact. Orbits symmetric. Sinuses clear. Tiny punctate metallic foreign bodies in the epide rmis anterior to the frontal bone correlate clinically. Findings are retrospectively noted on prior e xam. Craniocervical junction partially empty sella turcica IMPRESSION: DEGENERATIVE AND NONSPECIFIC WHITE MATTER CHANGES MOST TYPICAL OF REMOTE ISCHEMIA WITH NO ACUTE HEMOR RHAGE OR MASS EFFECT.
[2022-01-23 18:49] LABS: Basophils # (A) 0.03 X 10*3/uL (0.00-0.10); Basophils % (A) 0.5 %; Eosinophils # (A) 0.64 X 10*3/uL (0.04-0.35); Eosinophils % (A) 10.1 %; HCT 38.3 % (37.2-46.3); HGB 12.5 g/dL (12.0-15.0); Immature Grans, Automated 0.3 %; Lymphocytes # (A) 1.03 X 10*3/uL (0.90-5.00); Lymphocytes % (A) 16.2 %; MCH 30.1 pg (27.0-32.0); MCHC 32.6 g/dL (32.0-37.0); MCV 92.3 fL (80.0-97.0); Mean Platelet Volume 10.6 fL (9.5-12.2); NRBC Per 100 WBC 0 /100 WBCS (0.0-0.0); Neutrophils # (A) 3.92 X 10*3/uL (1.80-7.70); Neutrophils % (A) 61.9 %; Platelet Count 293 X 10*3/uL (140-440); RBC 4.15 X 10*6/uL (4.10-5.20); RDW 12.2 % (11.5-14.5); WBC 6.34 X 10*3/uL (4.50-10.00)
[2022-01-23 20:42] LABS: African American GFR (CKD) 66.2 (60.0-200.0); Albumin/Globulin Ratio 1.27 (1.60-3.17); Anion Gap 14.3 mmol/L (10.00-18.00); BUN/Creat Ratio 19.17 Ratio (12.00-20.00); Blood Urea Nitrogen 18.5 mg/dL (9.0-27.0); Calcium 12.4 mg/dL (8.7-10.3); Carbon Dioxide 24.3 mmol/L (20.0-27.5); Globulin 3.1 g/dL (1.6-3.3); Non-African American GFR(CKD) 57.1 (60.0-200.0); Potassium 2.9 mmol/L (3.5-5.5); Total Bilirubin 0.3 mg/dL (0.30-1.20); Total Protein 7.1 g/dL (6.2-8.2)
== END | disposition home or self-care (01) ==
LOC: RADCTMAIN 12:15
PROVIDERS: ATTEND Family Medicine
DX: R29.6 Repeated falls (principal); R51.9 Headache, unspecified; R42 Dizziness and giddiness; Z79.899 Other long term (current) drug therapy
CPT/HCPCS: 70450; 80053; 85025

== ENCOUNTER 2022-03-08 09:36 | Day surgery (SDC) | payer MEDICARE ==
[2022-03-07 12:08] VITALS: BMI 24.0
[~2022-03-08 09:36] MED LIST changes: +DEXAMETHASONE SOD PHOSPHATE 4 MG/ML 1 ML VIAL IV ONE; +ONDANSETRON 4 MG/2 ML VIAL IVP ONE; +fentaNYL (PF) 50 MCG/ML 2 ML AMP IV PRN
--- NOTE | 2022-03-08 10:23 | P.GSHP ---
History of Present Illness H&P Date: 03/08/22 Chief Complaint: Right elbow lipoma 2 This is a 76-year-old female who's developed a double lipoma on the right side. Patient has 2 lipomas measuring 3 cm and 5 cm over her right elbow. She presents today for excision. Past Medical History Past Medical History: Asthma, GERD/Reflux, Hypertension, Osteoarthritis (OA), Thyroid Disorder Additional Past Medical History / Comment(s): Insomnia, past migraines,PAST HYPERTENSION , sinus problems at times,HIP DISLOCATION X20 History of Any Multi-Drug Resistant Organisms: None Reported Past Surgical History: Adenoidectomy, Appendectomy, Bariatric Surgery, Joint Replacement, Orthopedic Surgery, Tonsillectomy, Tubal Ligation Additional Past Surgical History / Comment(s): 2003 lap band, panniculectomy, R hip ORIF/total arthroplasty, L hip arthroplasty x 2, r knee ACL repair and total right arthroplasty, R thumb sx, D&Cs, EGDs/colonoscopies, R breast benign bx. EGD Past Anesthesia/Blood Transfusion Reactions: Motion Sickness, Postoperative Nausea & Vomiting (PONV) Smoking Status: Former smoker - Past Family History Mother History Unknown: Yes Family Medical History: Cancer Additional Family Medical History / Comment(s): BLADDER CA- AT 70 YEARS OLD. Father History Unknown: Yes Family Medical History: Coronary Artery Disease (CAD), Myocardial Infarction ([place]) Additional Family Medical History / Comment(s): AT 60 YRS OLD Medications and Allergies Home Medications Medication Instructions Recorded Confirmed Type Loratadine [Claritin] 10 mg PO DAILY 06/20/17 03/08/22 History lisinopriL [Zestril] 10 mg PO BID 06/20/17 03/08/22 History Folic Acid 0.4 mg PO DAILY 09/24/17 03/08/22 History Albuterol Sulfate [Albuterol 1 puff PO RT-Q6H PRN 03/12/20 03/08/22 History Sulfate Hfa] Fluticasone Propion/Salmeterol 2 puff INHALATION RT-BID 03/12/20 03/08/22 History [Advair Hfa 230-21 Mcg Inhaler] Levothyroxine Sodium [Synthroid] 88 mcg PO 1200 03/12/20 03/08/22 History Montelukast Sodium [Singulair] 10 mg PO HS 03/12/20 03/08/22 History Multivit-Min/Iron/Folic/Lutein 1 tab PO DAILY 03/12/20 03/08/22 History [Centrum Silver Women Tablet] Omeprazole 20 mg PO DAILY 03/12/20 03/08/22 History Alendronate Sodium [Fosamax] 70 mg PO AHMADI 01/23/22 03/08/22 History Pravastatin Sodium [Pravachol] 20 mg PO HS 01/23/22 03/08/22 History QUEtiapine FUMARATE [SEROquel] 200 mg PO HS 01/23/22 03/08/22 History Fluticasone Propion/Salmeterol 2 puff INHALATION BID 03/07/22 03/08/22 History [Advair Hfa 230-21 Mcg Inhaler] amLODIPine [Norvasc] 10 mg PO DAILY 03/07/22 03/08/22 History Allergies Allergy/AdvReac Type Severity Reaction Status Date / Time spironolactone Allergy ANXIETY Verified 03/08/22 09:58 [From Aldactone] AND DEPRESSION morphine AdvReac Confusion Verified 03/08/22 09:58 OPIATES AdvReac Unknown AGITATION Uncoded 03/08/22 09:58 Surgical - Exam Vital Signs Temp Pulse Resp BP Pulse Ox 96.7 F L 86 18 104/64 96 03/08/22 09:53 03/08/22 09:53 03/08/22 09:53 03/08/22 09:53 03/08/22 09:53 - General well developed, well nourished, no distress - Eyes PERRL - ENT normal pinna - Neck no masses - Respiratory normal expansion - Cardiovascular Rhythm: regular - Abdomen Abdomen: soft, non tender Assessment and Plan Assessment: Right elbow lipoma 2. We'll perform excision.
[2022-03-08] MEDS ORDERED: MIDAZOLAM 2 MG/2 ML VIAL ONE (10:36)
[2022-03-08] MEDS ORDERED: fentaNYL (PF) 50 MCG/ML 2 ML AMP ONE (10:36)
[2022-03-08] MEDS ORDERED: PROPOFOL 10 MG/ML 20 ML VIAL IV ONE (10:36)
[2022-03-08] MEDS ORDERED: LIDOCAINE 2% INJ 20 MG/ML (2 ML VIAL) ONE (10:36)
[2022-03-08] MEDS ORDERED: SODIUM CHLORIDE 0.9% 50 ML with ceFAZolin 2,000 MG IV ONE ×2 (11:02)
[2022-03-08] MEDS ORDERED: BUPIVACAIN-EPI 0.25%-1:200,000 30 ML VIAL SQ ONE (11:05)
[2022-03-08 11:36] VITALS: TEMP 98.1
--- NOTE | 2022-03-08 11:54 | P.OP ---
Date of Procedure: 03/08/22 Preoperative Diagnosis: Right elbow lipoma 2 Postoperative Diagnosis: Right elbow lipoma 2 Procedure(s) Performed: Excision of right elbow lipoma Anesthesia: OSMEL Surgeon: Rolo Fried Estimated Blood Loss (ml): 5 Pathology: none sent (Elbow lipoma 2) Condition: stable Disposition: PACU Description of Procedure: The patient's placed on the operative table in the supine position. She received general endotracheal tube anesthesia. Her right elbow was prepped and draped usual fashion. The patient to lipomas measuring 5 cm and 2 cm over her right elbow. The skin was excised surrounding lipoma. And then the lipoma was dissected with left cautery. He was achieved. The skin incision sites were closed with 3-0 nylon suture. Patient top she will. Sterile dressing applied. Patient sent to recovery room in stable condition.
[2022-03-08 12:13] VITALS: RESP 20
[2022-03-08 12:19] VITALS: BP 115/73; PULSE 78
== END 2022-03-08 12:47 ==
LOC: OR 09:36
PROVIDERS: ATTEND Surgery
DX: D23.61 Other benign neoplasm of skin of right upper limb, including shoulder (principal); L72.0 Epidermal cyst; I10 Essential (primary) hypertension; E78.5 Hyperlipidemia, unspecified; J45.909 Unspecified asthma, uncomplicated; K21.9 Gastro-esophageal reflux disease without esophagitis; E07.9 Disorder of thyroid, unspecified; M19.90 Unspecified osteoarthritis, unspecified site; Z79.890 Hormone replacement therapy; Z79.899 Other long term (current) drug therapy; Z88.5 Allergy status to narcotic agent; Z88.8 Allergy status to other drugs, medicaments and biological substances; Z79.51 Long term (current) use of inhaled steroids; Z87.891 Personal history of nicotine dependence; Z80.52 Family history of malignant neoplasm of bladder; Z82.49 Family history of ischemic heart disease and other diseases of the circulatory system; Z90.49 Acquired absence of other specified parts of digestive tract
CPT/HCPCS: 24071; 88304; 88305; J2250; J1100; J2405; J0690; J3010; J2704; J1644; J2001

== ENCOUNTER 2022-07-15 08:27 | Inpatient (IN) | payer MEDICARE ==
[2022-07-15] MEDS ORDERED: SODIUM CHLORIDE 0.9% 500 ML 500 ML IV STA (08:48)
[2022-07-15] MEDS ORDERED: SODIUM CHLORIDE 0.9% 1,000 ML IV ONE ×3 (09:15→11:54)
--- NOTE | 2022-07-15 09:15 | ED ---
General Adult HPI - General Chief complaint: Overdose Stated complaint: rx overdose Time Seen by Provider: 07/15/22 08:35 Source: patient, RN notes reviewed, old records reviewed Mode of arrival: wheelchair Limitations: no limitations - History of Present Illness Initial comments: This is a 77-year-old female presents emergency department after having taking 30 of Seroquel and they were long-acting. Patient stated she had the thought of committing suicide and she took the pills and then immediately regretted it and told her . Patient took the pills around 8:00 in the morning. Patient states she's not thinking clearly right now. Patient denies any headache patient denies any numbness or weakness. Patient denies any chest pain difficul ty breathing or shortness of breath patient denies any palpitations. Patient denies abdominal pain patient denies any nausea vomiting. states that the patient has been depressive states since before Thanksgiving she's been previously diagnosed with bipolar - Related Data Home Medications Medication Instructions Recorded Confirmed Loratadine [Claritin] 10 mg PO DAILY 06/20/17 03/08/22 lisinopriL [Zestril] 10 mg PO BID 06/20/17 03/08/22 Folic Acid 0.4 mg PO DAILY 09/24/17 03/08/22 Albuterol Sulfate [Albuterol 1 puff PO RT-Q6H PRN 03/12/20 03/08/22 Sulfate Hfa] Fluticasone Propion/Salmeterol 2 puff INHALATION RT-BID 03/12/20 03/08/22 [Advair Hfa 230-21 Mcg Inhaler] Levothyroxine Sodium [Synthroid] 88 mcg PO 1200 03/12/20 03/08/22 Montelukast Sodium [Singulair] 10 mg PO HS 03/12/20 03/08/22 Multivit-Min/Iron/Folic/Lutein 1 tab PO DAILY 03/12/20 03/08/22 [Centrum Silver Women Tablet] Omeprazole 20 mg PO DAILY 03/12/20 03/08/22 Alendronate Sodium [Fosamax] 70 mg PO AHMADI 01/23/22 03/08/22 Pravastatin Sodium [Pravachol] 20 mg PO HS 01/23/22 03/08/22 QUEtiapine FUMARATE [SEROquel] 200 mg PO HS 01/23/22 03/08/22 Fluticasone Propion/Salmeterol 2 puff INHALATION BID 03/07/22 03/08/22 [Advair Hfa 230-21 Mcg Inhaler] amLODIPine [Norvasc] 10 mg PO DAILY 03/07/22 03/08/22 Previous Rx's Medication Instructions Recorded Sulfamethox-Tmp 800-160Mg [Bactrim 1 tab PO Q12HR #14 tab 03/08/22 DS 800-160 mg] Allergies Allergy/AdvReac Type Severity Reaction Status Date / Time spironolactone Allergy ANXIETY Verified 07/15/22 08:31 [From Aldactone] AND DEPRESSION morphine AdvReac Confusion Verified 07/15/22 08:31 OPIATES AdvReac Unknown AGITATION Uncoded 07/15/22 08:31 Review of Systems ROS Statement: Those systems with pertinent positive or pertinent negative responses have been documented in the HPI. ROS Other: All systems not noted in ROS Statement are negative. Past Medical History Past Medical History: Asthma, GERD/Reflux, Hypertension, Osteoarthritis (OA), Thyroid Disorder Additional Past Medical History / Comment(s): Insomnia, past migraines,PAST HYPERTENSION , sinus problems at times,HIP DISLOCATION X20 History of Any Multi-Drug Resistant Organisms: None Reported Past Surgical History: Adenoidectomy, Appendectomy, Bariatric Surgery, Joint Replacement, Orthopedic Surgery, Tonsillectomy, Tubal Ligation Additional Past Surgical History / Comment(s): 2004 lap band, panniculectomy, R hip ORIF/total arthroplasty, L hip arthroplasty x 2, r knee ACL repair and total right arthroplasty, R thumb sx, D&Cs, EGDs/colonoscopies, R breast benign bx. EGD Past Anesthesia/Blood Transfusion Reactions: Motion Sickness, Postoperative Nausea & Vomiting (PONV) Past Psychological History: ADD/ADHD, Anxiety, Bipolar, Depression, Panic Disorder Smoking Status: Former smoker - Past Family History Mother History Unknown: Yes Family Medical History: Cancer Additional Family Medical History / Comment(s): BLADDER CA- AT 70 YEARS OLD. Father History Unknown: Yes Family Medical History: Coronary Artery Disease (CAD), Myocardial Infarction ([place]) Additional Family Medical History / Comment(s): AT 60 YRS OLD General Exam - General Exam Comments Initial Comments: GENERAL: Patient is well-developed and well-nourished. Patient is nontoxic and well- hydrated and is in no acute distress. ENT: Neck is soft and supple. No significant lymphadenopathy is noted. Oropharynx is clear. Moist mucous membranes. Neck has full range of motion without eliciting any pain. EYES: The sclera were anicteric and conjunctiva were pink and moist. Extraocular movements were intact and pupils were equal round and reactive to light. Eyelids were unremarkable. PULMONARY: Unlabored respirations. Good breath sounds bilaterally. No audible rales rhonchi or wheezing was noted. CARDIOVASCULAR: There is a regular rate and rhythm without any murmurs gallops or rubs. ABDOMEN: Soft and nontender with normal bowel sounds. SKIN: Skin is clear with no lesions or rashes and otherwise unremarkable. NEUROLOGIC: Patient is alert and oriented x3. Cranial nerves II through XII are grossly intact. Motor and sensory are also intact. Normal speech, volume and content. Symmetrical smile. MUSCULOSKELETAL: Normal extremities with adequate strength and full range of motion. LYMPHATICS: No significant lymphadenopathy is noted PSYCHIATRIC: Patient states she was taking the pills to commit suicide but then she immediately regretted it. Patient still is very depressed Limitations: no limitations Course Vital Signs 07/15/22 07/15/22 08:31 09:35 Temperature 98 F Pulse Rate 51 L Respiratory 16 Rate Blood Pressure 117/69 O2 Sat by Pulse 96 95 Oximetry Medical Decision Making - Medical Decision Making EKG was interpreted by myself. EKG shows sinus tachycardia with frequent PACs at a rate of 107 bpm [place] interval 166 QRS is 85 QT interval 3:30 QTC is 376. Patient's EKG shows no ST segment elevation or depression. Was pt. sent in by a medical professional or institution (, PA, COMB SETTER, urgent care, hospital, or alf...) When possible be specific @ -[No] Did you speak to anyone other than the patient for history (EMS, parent, family, police, friend...)? What history was obtained from this source @ -Spoke with the extensively about her past medical history about current situation. Did you review nursing and triage notes (agree or disagree)? Why? @ -[I reviewed and agree with nursing and triage notes] Were old charts reviewed (outside hosp., previous admission, EMS record, old EKG, old radiological studies, urgent care reports/EKG's, alf records)? Report findings @ -[No old charts were reviewed] Differential Diagnosis (chest pain, altered mental status, abdominal pain women, abdominal pain men, vaginal bleeding, weakness, fever, dyspnea, syncope, headache, dizziness, GI bleed, back pain, seizure, CVA, palpatations, mental health)? @ -[not applicable] EKG interpreted by me (3pts min.). @ -[As above] X-rays interpreted by me (1pt min.). @ -[None done] CT interpreted by me (1pt min.). @ -[None done] U/S interpreted by me (1pt. min.). @ -[None done] What testing was considered but not performed or refused? (CT, X-rays, U/S, labs)? Why? @ -Considered doing a gastric lavage however patient had a LAP-BAND so it was unable to be performed What meds were considered but not given or refused? Why? @ -Because patient took Seroquel Benadryl was considered for any extrapyramidal symptoms Did you discuss the management of the patient with other professionals (professionals i.e. , PA, COMB SETTER, lab, RT, psych nurse, social science manager, volunteer firefighter, teacher, traffic police officer, special education case manager)? Give summary @ -I spoke with the [facility] agreed to admit the patient admitted the patient wrote admitting orders Was smoking cessation discussed for >3mins.? @ -[No] Was critical care preformed (if so, how long)? @ -[No] Were there social determinants of health that impacted care today? How? (Homelessness, low income, unemployed, alcoholism, drug addiction, transportation, low edu. Level, literacy, decrease access to med. care, assisted, rehab)? @ -[No] Was there de-escalation of care discussed even if they declined (Discuss DNR or withdrawal of care, Hospice)? DNR status @ -[No] What co-morbidities impacted this encounter? (DM, HTN, Smoking, COPD, CAD, Cancer, CVA, ARF, Chemo, Hep., AIDS, mental health diagnosis, sleep apnea, morbid obesity)? @ -[None] Was patient admitted / discharged? Hospital course, mention meds given and route, prescriptions, significant lab abnormalities, going to OR and other pertinent info. @ -Patient will be admitted for suicidal ideations and suicide attempt as well as a Seroquel overdose Undiagnosed new problem with uncertain prognosis? @ -[No] Drug Therapy requiring intensive monitoring for toxicity (Heparin, Nitro, Insulin, Cardizem)? @ -[No] Were any procedures done? @ -[No] Diagnosis/symptom? @ -Seroquel overdose Acute, or Chronic, or Acute on Chronic? @ -Acute Uncomplicated (without systemic symptoms) or Complicated (systemic symptoms)? @ -Complicated Side effects of treatment? @ -[No] Exacerbation, Progression, or Severe Exacerbation? @ -[No] Poses a threat to life or bodily function? How? (Chest pain, [place], [place], pneumonia, PE, COPD, DKA, ARF, appy, cholecystitis, CVA, Diverticulitis, Homicidal, Suicidal, threat to staff... and all critical care pts) @ -Yes. This could lead 2 QT interval prolongation which could lead to lethal arrhythmia. Diagnosis/symptom? @ -Depression Acute, or Chronic, or Acute on Chronic? @ -Acute on chronic Uncomplicated (without systemic symptoms) or Complicated (systemic symptoms)? @ -[default] Side effects of treatment? @ -[none] Exacerbation, Progression, or Severe Exacerbation] @ -[no] Poses a threat to life or bodily function? @ - Diagnosis/symptom? @ -Suicide attempts Acute, or Chronic, or Acute on Chronic? @ -Acute Uncomplicated (without systemic symptoms) or Complicated (systemic symptoms)? @ -Complicated Side effects of treatment? @ -[none] Exacerbation, Progression, or Severe Exacerbation] @ -[no] Poses a threat to life or bodily function? @ -[no] - Lab Data Result diagrams: 07/15/22 09:11 07/15/22 09:11 Lab Results 07/15/22 07/15/22 Range/Units 09:11 09:11 WBC 3.5 L (3.8-10.6) k/uL RBC 4.34 (3.80-5.40) m/uL Hgb 13.1 (11.4-16.0) gm/dL Hct 37.5 (34.0-46.0) % MCV 86.4 (80.0-100.0) fL MCH 30.1 (25.0-35.0) pg MCHC 34.8 (31.0-37.0) g/dL RDW 12.2 (11.5-15.5) % Plt Count 199 (150-450) k/uL MPV 8.4 Neutrophils % 64 % Lymphocytes % 28 % Monocytes % 5 % Eosinophils % 1 % Basophils % 1 % Neutrophils # 2.3 (1.3-7.7) k/uL Lymphocytes # 1.0 (1.0-4.8) k/uL Monocytes # 0.2 (0-1.0) k/uL Eosinophils # 0.0 (0-0.7) k/uL Basophils # 0.0 (0-0.2) k/uL Sodium 134 L (137-145) mmol/L Potassium 3.7 (3.5-5.1) mmol/L Chloride 102 (98-107) mmol/L Carbon Dioxide 22 (22-30) mmol/L Anion Gap 10 mmol/L BUN 10 (7-17) mg/dL Creatinine 0.65 (0.52-1.04) mg/dL Est GFR (CKD-EPI)AfAm >90 (>60 ml/min/1.73 sqM) Est GFR (CKD-EPI)NonAf 86 (>60 ml/min/1.73 sqM) Glucose 183 H (74-99) mg/dL Calcium 9.1 (8.4-10.2) mg/dL Total Bilirubin 0.4 (0.2-1.3) mg/dL AST 21 (14-36) U/L ALT 20 (4-34) U/L Alkaline Phosphatase 62 (38-126) U/L Total Protein 7.1 (6.3-8.2) g/dL Albumin 4.3 (3.5-5.0) g/dL Salicylates <1.0 mg/dL Acetaminophen <10.0 ug/mL Serum Alcohol <10 mg/dL Disposition Clinical Impression: Depression, Suicide attempt, Overdose by ingestion Disposition: ADMITTED IP TO THIS HOSP Referrals: Dez Bowen DO [Primary Care Provider] - 1-2 days Time of Disposition: 10:37
[2022-07-15 09:21] LABS: Basophils % (A) 1 %; Eosinophils % (A) 1 %; HCT 37.5 % (34.0-46.0); HGB 13.1 gm/dL (11.4-16.0); Lymphocytes % (A) 28 %; MCH 30.1 pg (25.0-35.0); MCHC 34.8 g/dL (31.0-37.0); MCV 86.4 fL (80.0-100.0); Mean Platelet Volume 8.4; Monocytes # (A) 0.2 k/uL (0-1.0); Monocytes % (A) 5 %; Neutrophils # (A) 2.3 k/uL (1.3-7.7); Neutrophils % (A) 64 %; Platelet Count 199 k/uL (150-450); RBC 4.34 m/uL (3.80-5.40); RDW 12.2 % (11.5-15.5); WBC 3.5 k/uL (3.8-10.6)
[2022-07-15 09:41] LABS: ALT 20 U/L (4-34); AST 21 U/L (14-36); Acetaminophen <10.0 ug/mL; African American GFR (CKD) >90 (>60 ml/min/1.73 sqM); Albumin 4.3 g/dL (3.5-5.0); Alcohol <10 mg/dL; Alkaline Phosphatase 62 U/L (38-126); Anion Gap 10 mmol/L; Blood Urea Nitrogen 10 mg/dL (7-17); Calcium 9.1 mg/dL (8.4-10.2); Carbon Dioxide 22 mmol/L (22-30); Chloride 102 mmol/L (98-107); Glucose 183 mg/dL (74-99); Non-African American GFR(CKD) 86 (>60 ml/min/1.73 sqM); Potassium 3.7 mmol/L (3.5-5.1); Salicylate <1.0 mg/dL; Sodium 134 mmol/L (137-145); Total Bilirubin 0.4 mg/dL (0.2-1.3); Total Protein 7.1 g/dL (6.3-8.2)
[2022-07-15 22:45] LABS: Amphetamine Screen,Urine Not Detected (NotDetected); Barbiturate Screen,Urine Not Detected (NotDetected); Benzodiazepines Screen,Urine Not Detected (NotDetected); Cocaine Screen,Urine Not Detected (NotDetected); Methadone Screen, Urine Not Detected (NotDetected); Opiate Screen,Urine Not Detected (NotDetected); Oxycodone Screen, Urine Not Detected (NotDetected); Phencyclidine Screen,Urine Not Detected (NotDetected); Tricyclic Antidepressant,Urine Detected (NotDetected); Urn Cannabinoid Scrn Not Detected (NotDetected)
[2022-07-15] MEDS ORDERED: LORazepam 2 MG/ML INJ IV STA (23:04)
--- NOTE | 2022-07-15 23:38 | CT ---
EXAMINATION TYPE: CT brain wo con DATE OF EXAM: 07/15/2022 COMPARISON: 01/23/2022 HISTORY: seizure, seroquel OD CT DLP: 1107.4 mGycm Automated exposure control for dose reduction was used. Images of the brain obtained with no contrast. There is diffuse cerebral atrophy. There is no mass effect or midline shift. No sign of intracranial hemorrhage. Calvarium is intact. There is normal aeration of the mastoid sinuses. IMPRESSION: Cerebral atrophy and no acute intracranial abnormality. No change compared to old exam.
[2022-07-16 05:23] LABS: Glucose,Whole Blood 96 mg/dL (70-110)
[2022-07-16 05:24] LABS: ABG HCO3 19 mmol/L (21-25); ABG Oxygen Saturation 98.1 % (94-97); ABG PCO2 33 mmHg (35-45); ABG PH 7.37 (7.35-7.45); ABG PO2 98 mmHg (83-108); ABG TCO2 20 mmol/L (19-24); Allen Test Performed? Yes
[2022-07-16] MEDS ORDERED: NALOXONE 0.4 MG/ML 1 ML VIAL IV PRN (06:06)
[2022-07-16 06:40] LABS: African American GFR (CKD) >90 (>60 ml/min/1.73 sqM); Anion Gap 8 mmol/L; Blood Urea Nitrogen 16 mg/dL (7-17); Calcium 7.9 mg/dL (8.4-10.2); Carbon Dioxide 19 mmol/L (22-30); Chloride 112 mmol/L (98-107); Glucose 96 mg/dL (74-99); Magnesium 2.1 mg/dL (1.6-2.3); Non-African American GFR(CKD) 80 (>60 ml/min/1.73 sqM); Potassium 3.8 mmol/L (3.5-5.1); Sodium 139 mmol/L (137-145)
[2022-07-16 06:45] LABS: HGB 11.4 gm/dL (11.4-16.0); MCH 29.4 pg (25.0-35.0); MCHC 33.6 g/dL (31.0-37.0); MCV 87.3 fL (80.0-100.0); Mean Platelet Volume 8.9; Platelet Count 211 k/uL (150-450); RDW 12.7 % (11.5-15.5); WBC 9.4 k/uL (3.8-10.6)
[2022-07-16] MEDS ORDERED: FUROSEMIDE 10 MG/ML 4 ML VIAL IV STA (06:45)
--- NOTE | 2022-07-16 06:45 | P.CNPUL ---
History of Present Illness Consult date: 07/16/22 Reason for consult: dyspnea Chief complaint: drug overdose History of present illness: This is a 77-year-old female patient with known history of bipolar depression, who presented emergency department yesterday after overdosing on a large quantity of Seroquel tablets. Based on calculation, the patient has significant total of 10,400 mg of Seroquel all at once. This was an intentional overdose. She took the pills and she immediately regretted and contacted her went to bring her to the emergency department. In the emergency, was not given a gastric lavage. I'm not certain if the patient was given activated charcoal also. Nevertheless, she was 100 stable. She did not have an EKG changes and her EKG was essentially within normal limits. Her mental status was normal when she arrived to the emergency department. Her vitals are all stable. It's she had a temperature of 98 with a pulse of 51 and respiration of 16 and a blood pressure of 117/69 with a pulse ox of 96% on room air oxygen. Her blood work showed a number of his account of 3.5 with a hemoglobin of 13.1 and a platelet count of 199. Sodium is at 134 with a potassium level of 3.7 BUN is at 10 with a creatinine of 0.6 and a glucose was 183. As the patient was in the emergency department, she was given a CAT scan of the brain that showed no acute abnormalities. Subsequently, around midnight, the patient had a generalized seizure. The seizure lasted for a total of 2 minutes and the patient was given a total of 2 mg of Ativan IV. Following that, the patient became progressively hypoxic. There is a possibility that the patient aspirated as the patient had some emesis post seizure activity. She had onle 1 seizure episode. At that point, she was placed on 100% nonrebreather facemask to bring a saturation above 90%. I was contacted and the patient got moved to the intensive care unit.. At this point in time, the patient withdraws to sternal rub and painful stimulation. She is not following commands. She is significantly obtunded, possibly postictal. No jerky body movements. No body stiffness. No tonic or clonic activity. No fever. No neck stiffness. No trauma. She remains hemodynamically stable and the most recent blood pressure is 105/85. A chest x- ray was done and showed bilateral infiltrates could be related to aspiration pneumonia/ARDS/noncardiogenic pulmonary edema. Repeat EKG will be done. Based on the cardiac rhythm on the monitor, no significant abnormalities are noted. Neurologic has been involved. Most recent QTC is at 330 milliseconds. Review of Systems ROS unobtainable: due to mental status Past Medical History Past Medical History: Asthma, GERD/Reflux, Hypertension, Osteoarthritis (OA), Thyroid Disorder Additional Past Medical History / Comment(s): Insomnia, past migraines,PAST HYPERTENSION , sinus problems at times,HIP DISLOCATION X20 History of Any Multi-Drug Resistant Organisms: None Reported Past Surgical History: Adenoidectomy, Appendectomy, Bariatric Surgery, Joint Replacement, Orthopedic Surgery, Tonsillectomy, Tubal Ligation Additional Past Surgical History / Comment(s): 2004 lap band, panniculectomy, R hip ORIF/total arthroplasty, L hip arthroplasty x 2, r knee ACL repair and total right arthroplasty, R thumb sx, D&Cs, EGDs/colonoscopies, R breast benign bx. EGD Past Anesthesia/Blood Transfusion Reactions: Motion Sickness, Postoperative Nausea & Vomiting (PONV) Past Psychological History: ADD/ADHD, Anxiety, Bipolar, Depression, Panic Disorder Smoking Status: Former smoker - Past Family History Mother History Unknown: Yes Family Medical History: Cancer Additional Family Medical History / Comment(s): BLADDER CA- AT 70 YEARS OLD. Father History Unknown: Yes Family Medical History: Coronary Artery Disease (CAD), Myocardial Infarction (MT) Additional Family Medical History / Comment(s): AT 60 YRS OLD Medications and Allergies Home Medications Medication Instructions Recorded Confirmed Type Loratadine [Claritin] 10 mg PO DAILY 06/20/17 07/15/22 History lisinopriL [Zestril] 10 mg PO BID 06/20/17 07/15/22 History Albuterol Sulfate [Albuterol 2 puff INHALATION RT-QID PRN 03/12/20 07/15/22 History Sulfate Hfa] Levothyroxine Sodium [Synthroid] 88 mcg PO DAILY@1200 03/12/20 07/15/22 History Montelukast Sodium [Singulair] 10 mg PO HS 03/12/20 07/15/22 History Multivit-Min/Iron/Folic/Lutein 1 tab PO DAILY@1200 03/12/20 07/15/22 History [Centrum Silver Women Tablet] Omeprazole 20 mg PO DAILY 03/12/20 07/15/22 History Alendronate Sodium [Fosamax] 70 mg PO AHMADI 01/23/22 07/15/22 History Pravastatin Sodium [Pravachol] 20 mg PO HS 01/23/22 07/15/22 History amLODIPine [Norvasc] 10 mg PO DAILY 03/07/22 07/15/22 History Budesonide/Formoterol Fumarate 2 puff INHALATION RT-BID 07/15/22 07/15/22 History [Symbicort 80-4.5 Mcg Inhaler] Cholecalciferol [Vitamin D3 (25 50 mcg PO Q2D@1200 07/15/22 07/15/22 History Mcg = 1000 Iu)] Folic Acid 0.8 mg PO DAILY@1200 07/15/22 07/15/22 History L.acidoph,Paracasei, B.lactis 1 cap PO DAILY@1200 07/15/22 07/15/22 History [Probiotic] QUEtiapine FUMARATE [SEROquel XR] 400 mg PO HS 07/15/22 07/15/22 History Allergies Allergy/AdvReac Type Severity Reaction Status Date / Time spironolactone Allergy ANXIETY Verified 07/15/22 12:53 [From Aldactone] AND DEPRESSION buspirone [From BuSpar] AdvReac Insomnia Verified 07/15/22 16:16 morphine AdvReac Confusion Verified 07/15/22 12:53 Opioids - Morphine Analogues AdvReac Confusion Verified 07/15/22 12:53 Opioids-Meperidine and AdvReac Confusion Verified 07/15/22 12:53 Related OPIATES AdvReac Unknown AGITATION Uncoded 07/15/22 12:53 Physical Exam Vitals: Vital Signs Temp Pulse Pulse Resp BP BP Pulse Ox 07/16/22 06:00 28 H 07/16/22 05:54 98.5 F 94 23 103/72 97 07/16/22 03:23 86 16 96/62 99 07/16/22 01:52 87 14 99/62 99 07/15/22 23:32 88 14 84/50 100 07/15/22 23:00 07/15/22 21:33 93/60 07/15/22 19:30 97.8 F 97 16 98/60 95 07/15/22 17:00 97.4 F L 89 16 90/55 94 L 07/15/22 16:09 96 07/15/22 13:33 95 14 92/58 96 07/15/22 11:48 92 14 82/70 95 07/15/22 09:35 95 07/15/22 08:31 98 F 51 L 16 117/69 96 FiO2 07/16/22 06:00 07/16/22 05:54 07/16/22 03:23 07/16/22 01:52 07/15/22 23:32 07/15/22 23:00 100 07/15/22 21:33 07/15/22 19:30 07/15/22 17:00 07/15/22 16:09 07/15/22 13:33 07/15/22 11:48 07/15/22 09:35 07/15/22 08:31 Intake and Output 07/15/22 07/15/22 07/16/22 14:59 22:59 06:59 Output Total 500 300 Balance -500 -300 Output: Urine 500 300 Straight 500 Other: Weight 54.431 kg Patient is currently quite obtunded, withdraws only to deep painful stimulation. She is currently on 100% nonrebreather facemask. Breathing is nonlabored. No jerky body movements. No tonic or clonic activity at this point in time. No twitching. Head exam was generally normal. There was no scleral icterus or corneal arcus. Mucous membranes were moist. Neck was supple and without jugular venous distension, thyromegaly, or carotid bruits. Carotids were easily palpable bilaterally. There was no adenopathy. Lungs sounds are diminished and the patient has limited secondary to the mid and lower lung wiggins bilaterally. Cardiac exam revealed the PMI to be normally situated and sized. The rhythm was regular and no extrasystoles were noted during several minutes of auscultation. The first and second heart sounds were normal and physiologic splitting of the second heart sound was noted. There were no murmurs, rubs, clicks, or gallops. Abdominal exam revealed normal bowel sounds. The abdomen was soft, non-tender, and without masses, organomegaly, or appreciable enlargement of the abdominal aorta. Lower extremities Examination of the extremities revealed easily palpable radial, femoral and pedal pulses. There was no cyanosis, clubbing or edema. Examination of the skin revealed no evidence of significant rashes, suspicious appearing nevi or other concerning lesions. Neurologically, the patient is alert and oriented 0. Not responsive at this point in time. Was also painful stimulation. Adequate motor and sensory asse ssment cannot be done. No facial asymmetry. No jerky body movements. No neck stiffness. Pupils are round 4 mm in size and sluggishly reactive to light. No preferential gaze. No nystagmus. Results - Laboratory Findings CBC and BMP: 07/15/22 09:11 07/15/22 09:11 ABG ABG pH 7.37 (7.35-7.45) 07/16/22 05:22 ABG pCO2 33 mmHg (35-45) L 07/16/22 05:22 ABG pO2 98 mmHg (83-108) 07/16/22 05:22 ABG O2 Saturation 98.1 % (94-97) H 07/16/22 05:22 Abnormal lab findings: Abnormal Labs 07/15/22 07/15/22 07/15/22 09:11 09:11 22:15 WBC 3.5 L ABG pCO2 ABG HCO3 ABG O2 Saturation Sodium 134 L Glucose 183 H U Tricyclic Antidepress Detected H 07/16/22 05:22 WBC ABG pCO2 33 L ABG HCO3 19 L ABG O2 Saturation 98.1 H Sodium Glucose U Tricyclic Antidepress - Diagnostic Findings Chest x-ray: image reviewed Assessment and Plan Plan: Acute intentional drug overdose with Seroquel Acute seizure activity, drug induced, received Ativan. Currently quite obtunded probably postictal. CAT scan of the brain that was done at time of admission was negative. Acute hypoxic respiratory failure currently on on a percent on rebreather facemask. Rule out aspiration/ARDS. Rule out noncardiac pulmonary edema. Diminished level of consciousness secondary to above History of bronchial asthma maternal Symbicort on outpatient basis Hypertension Degenerative arthritis Chronic bipolar disorder/depression. Plan The patient 100% on rebreather facemask Patient has been resuscitated with IV fluids. The patient received a total of 5 L of normal saline in the emergency. I'm going to switch her to KVO and given a dose of Lasix 40 mg IV push Cover the patient with IV Zosyn 3.375 g every 8 hours covering for aspiration pneumonia Obtain echocardiogram to assess LV function We'll obtain an EEG Monitor for any seizure activity Monitor neuro status Consult neurology Urine drug screen has been essentially negative We'll need a sitter at the bedside and suicide precautions Heparin subcu for DVT prophylaxis IV Protonix Blood gas was noted Chest x-ray was noted Hitchcock catheter insertion urinary retention due to Seroquel overdose Condition is obviously critical and will be kept in the intensive care unit. We'll closely monitor for any seizure activity. Apply seizure precautions. We'll continue to follow. Time with Patient: Greater than 30
--- NOTE | 2022-07-16 07:21 | XR ---
EXAMINATION TYPE: XR chest 1V portable DATE OF EXAM: 07/16/2022 4:45 AM COMPARISON: Chest radiographs from 01/27/2022. TECHNIQUE: XR chest 1V portable Portable AP radiograph of the chest. CLINICAL INDICATION:Female, 77 years old with history of resp distress; FINDINGS: Lungs/Pleura: There is no evidence of pleural effusion, focal consolidation, or pneumothorax. Pulmonary vascularity: Unremarkable. Heart/mediastinum: Cardiomediastinal silhouette is unremarkable. Atherosclerotic calcifications are seen in the aorta. Musculoskeletal: Degenerative changes of the shoulder joints. Findings communicated to Telly Jimenez on 07/16/2022 7:[address] To Navarro. IMPRESSION: There appears to be air under the diaphragm on the right further evaluation for pneumoperitoneum. Cor relate clinically for recent surgical intervention.
--- NOTE | 2022-07-16 08:25 | XR ---
EXAMINATION TYPE: XR chest 1V portable DATE OF EXAM: 07/16/2022 8:12 AM COMPARISON: Chest radiographs from earlier same day. TECHNIQUE: XR chest 1V portable Portable AP radiograph of the chest. CLINICAL INDICATION:Female, 77 years old with history of pneumonia; FINDINGS: Lungs/Pleura: Consolidation with air bronchograms projecting over the left heart. There is no evidenc e of pleural effusion, focal consolidation, or pneumothorax. Pulmonary vascularity: Unremarkable. Heart/mediastinum: Cardiomediastinal silhouette is unremarkable. Musculoskeletal: No acute osseous pathology. IMPRESSION: Free air under the diaphragm is not as well visualized on this exam. Some lucencies projecting over t he heart could represent atelectatic lung. Further evaluation of the chest with chest CT is recommend ed.
[2022-07-16] MEDS: PIPERACILLIN-TAZOBACTAM 3.375 GM in SODIUM CHLORIDE 0.9% 100 ML IVPB SCH ×2 (08:29→16:27)
[2022-07-16] MEDS: PANTOPRAZOLE 40 MG/10 ML VIAL IVP SCH (08:29)
[2022-07-16] MEDS: HEPARIN SODIUM,PORCINE/PF 5,000 UNIT/0.5 ML SYRINGE SQ SCH ×2 (08:29→16:27)
[2022-07-16] MEDS: LEVOTHYROXINE IVP 100 MCG/5 ML VIAL IV SCH (08:29)
[2022-07-16] MEDS: SODIUM CHLORIDE 0.9% 1,000 ML IV SCH (08:30)
[2022-07-16 08:37] LABS: Band Neutrophils % 2 %; Lymphocytes # (M) 0.09 k/uL (1.0-4.8); Monocytes # (M) 0.85 k/uL (0-1.0); Neutrophils % (M) 88 %; Nucleated Red Blood Cells 0 /100 WBC (0-0); Total Cells Counted 100
[2022-07-16 09:10] LABS: Appearance,Urine Clear (Clear); Bilirubin,Urine Negative (Negative); Blood,Urine Moderate (Negative); Color,Urine Yellow; Glucose,Urine (UA) Negative (Negative); Ketones,Urine 2+ (Negative); Leukocyte Esterase,Urine Negative (Negative); Mucus,Urine Rare /hpf; Nitrite,Urine Negative (Negative); PH, Urine 6.5 (5.0-8.0); Protein,Urine 2+ (Negative); RBC,Urine <1 /hpf (0-5); Specific Gravity,Urine 1.021 (1.001-1.035); Squamous Epithelial Cell,Urine 1 /hpf (0-4); Urobilinogen,Urine <2.0 mg/dL (<2.0); WBC,Urine 3 /hpf (0-5)
--- NOTE | 2022-07-16 09:17 | P.HPIM ---
History of Present Illness H&P Date: 07/15/22 Chief Complaint: Overdose with Seroquel 77-year-old female presents emergency department after having taking 30 of Seroquel and they were long-acting. Patient stated she had the thought of committing suicide and she took the pills and then immediately regretted it and told her . Patient took the pills around 8:00 in the morning. Patient states she's not thinking clearly right now. Patient denies any headache patient denies any numbness or weakness. Patient denies any chest pain difficulty breathing or shortness of breath patient denies any palpitations. Vick osei denies abdominal pain patient denies any nausea vomiting. states that the patient has been depressive states since before Thanksgiving she's been previously diagnosed with bipolar Upon arrival to ED patient had a temperature of 98, pulse of 51 and respiration of 16 and a blood pressure of 117/69 with a pulse ox of 96% on room air oxygen. Blood work reveals WBC of 3.5 with a hemoglobin of 13.1 and a platelet count of 199. Sodium is at 134 with a potassium level of 3.7 BUN is at 10 with a creatinine of 0.6 and a glucose was 183. --CAT scan of the brain that showed no acute abnormalities. EKG reveals sinus tachycardia with frequent supraventricular premature complexes -Controlled was consulted and recommended patient on telemetry given increased risk of QTC prolongation and arrhythmias Review of Systems ROS unobtainable: due to mental status Past Medical History Past Medical History: Asthma, GERD/Reflux, Hypertension, Osteoarthritis (OA), Thyroid Disorder Additional Past Medical History / Comment(s): Insomnia, past migraines,PAST HYPERTENSION , sinus problems at times,HIP DISLOCATION X20 History of Any Multi-Drug Resistant Organisms: None Reported Past Surgical History: Adenoidectomy, Appendectomy, Bariatric Surgery, Joint Replacement, Orthopedic Surgery, Tonsillectomy, Tubal Ligation Additional Past Surgical History / Comment(s): 2004 lap band, panniculectomy, R hip ORIF/total arthroplasty, L hip arthroplasty x 2, r knee ACL repair and total right arthroplasty, R thumb sx, D&Cs, EGDs/colonoscopies, R breast benign bx. EGD Past Anesthesia/Blood Transfusion Reactions: Motion Sickness, Postoperative Nausea & Vomiting (PONV) Past Psychological History: ADD/ADHD, Anxiety, Bipolar, Depression, Panic Disorder Smoking Status: Former smoker - Past Family History Mother History Unknown: Yes Family Medical History: Cancer Additional Family Medical History / Comment(s): BLADDER CA- AT 70 YEARS OLD. Father History Unknown: Yes Family Medical History: Coronary Artery Disease (CAD), Myocardial Infarction (ID) Additional Family Medical History / Comment(s): AT 60 YRS OLD Medications and Allergies Home Medications Medication Instructions Recorded Confirmed Type Loratadine [Claritin] 10 mg PO DAILY 06/20/17 07/15/22 History lisinopriL [Zestril] 10 mg PO BID 06/20/17 07/15/22 History Albuterol Sulfate [Albuterol 2 puff INHALATION RT-QID PRN 03/12/20 07/15/22 History Sulfate Hfa] Levothyroxine Sodium [Synthroid] 88 mcg PO DAILY@1200 03/12/20 07/15/22 History Montelukast Sodium [Singulair] 10 mg PO HS 03/12/20 07/15/22 History Multivit-Min/Iron/Folic/Lutein 1 tab PO DAILY@1200 03/12/20 07/15/22 History [Centrum Silver Women Tablet] Omeprazole 20 mg PO DAILY 03/12/20 07/15/22 History Alendronate Sodium [Fosamax] 70 mg PO AHMADI 01/23/22 07/15/22 History Pravastatin Sodium [Pravachol] 20 mg PO HS 01/23/22 07/15/22 History amLODIPine [Norvasc] 10 mg PO DAILY 03/07/22 07/15/22 History Budesonide/Formoterol Fumarate 2 puff INHALATION RT-BID 07/15/22 07/15/22 History [Symbicort 80-4.5 Mcg Inhaler] Cholecalciferol [Vitamin D3 (25 50 mcg PO Q2D@119907/15/22 07/15/22 History Mcg = 1000 Iu)] Folic Acid 0.8 mg PO DAILY@1200 07/15/22 07/15/22 History L.acidoph,Paracasei, B.lactis 1 cap PO DAILY@1200 07/15/22 07/15/22 History [Probiotic] QUEtiapine FUMARATE [SEROquel XR] 400 mg PO 07/15/22 07/15/22 History Allergies Allergy/AdvReac Type Severity Reaction Status Date / Time spironolactone Allergy ANXIETY Verified 07/15/22 12:53 [From Aldactone] AND DEPRESSION buspirone [From BuSpar] AdvReac Insomnia Verified 07/15/22 16:16 morphine AdvReac Confusion Verified 07/15/22 12:53 Opioids - Morphine Analogues AdvReac Confusion Verified 07/15/22 12:53 Opioids-Meperidine and AdvReac Confusion Verified 07/15/22 12:53 Related OPIATES AdvReac Unknown AGITATION Uncoded 07/15/22 12:53 Physical Exam Vitals: Vital Signs Temp Pulse Resp BP Pulse Ox 07/15/22 09:35 95 07/15/22 08:31 98 F 51 L 16 117/69 96 Intake and Output 07/14/22 07/15/22 07/15/22 22:59 06:59 14:59 Other: Weight 54.431 kg PHYSICAL EXAMINATION: GENERAL: The patient is alert and oriented x3, not in any acute distress. Well developed, well nourished. HEENT: Pupils are round and equally reacting to light. EOMI. No scleral icterus. No conjunctival pallor. Normocephalic, atraumatic. No pharyngeal erythema. No thyromegaly. CARDIOVASCULAR: S1 and S2 present. No murmurs, rubs, or gallops. PULMONARY: Chest is clear to auscultation, no wheezing or crackles. ABDOMEN: Soft, nontender, nondistended, normoactive bowel sounds. No palpable organomegaly. MUSCULOSKELETAL: No joint swelling or deformity. EXTREMITIES: No cyanosis, clubbing, or pedal edema. NEUROLOGICAL: Gross neurological examination did not reveal any focal deficits. SKIN: No rashes. Results CBC & Chem 7: 07/16/22 06:16 07/16/22 06:16 Labs: Abnormal Lab Results - Last 24 Hours (Table) 07/15/22 07/15/22 Range/Units 09:11 09:11 WBC 3.5 L (3.8-10.6) k/uL Sodium 134 L (137-145) mmol/L Glucose 183 H (74-99) mg/dL Assessment and Plan Assessment: 1. Intentional Seroquel overdose - Patient reports overdose with 30 extended-release Seroquel tablets; patient immediately regretted taking medication and told her and patient was brought to ED; patient was not given gastric lavage given history of bariatric surgery - Present control recommending continuous EKG monitoring given risk for QTC prolongation and atrial arrhythmias 2. Altered mental status; related to Seroquel overdose - We will monitor closely; neurochecks per protocol 3. Suicidal attempt; patient does have history of bipolar disorder; we will consult psych 4. Bipolar disorder/depression; patient takes Seroquel 200 mg by mouth daily at bedtime which has been placed on hold until further psychiatric evaluation 5. Asthma; not in exacerbation; albuterol inhaler 2 puffs 4 times a day when necessary, Advair HFA 2 puffs twice a day, Singulair 10 mg daily at bedtime 6. Hypertension; Norvasc 10 mg daily, lisinopril 10 mg twice a day 7. Hypothyroidism; levothyroxin 88 MCG daily 8. Hyperlipidemia; patient takes pravastatin 20 mg by mouth daily at bedtime DVT prophylaxis; SCDs/subcu heparin CODE STATUS; full code
[2022-07-16] MEDS ORDERED: levETIRAcetam IV 1,000 MG in SALINE 1 100ML.BAG IVPB STA (09:38)
--- NOTE | 2022-07-16 10:56 | P.CNNES ---
History of Present Illness Consult date: 07/16/22 Requesting physician: Jonathan Mcwilliams Reason for Consult: seizure History of Present Illness: This is a 77-year-old woman who presented emergency department after overdosing on large quantity of Seroquel tablets. History was obtained from medical record and patient nurse. Neurology is consulted for seizure. It seems that the patient had a total of 10,400 mg all at once and was intentional overdose. After she took the pills she merely regretted and contacted her to bring her to the emergency department. She was also the patient received Benadryl. She denied any headache, numbness or weakness while in the ED. It seemed to the patient has been the depressed since before and it seems that she was diagnosed with bipolar. While in the emergency department is seems that the patient had the attendance second seizure-like activity according to the ED staff which I was preferred served yesterday but according to the ICU note is mentioned that she had a two-minute seizure but I was told 10 seconds yesterday. And it seemed that was generalized seizure.. Unsure exactly description of the seizure but as a result the patient was given 2 mg Ativan ED team. It does not seem that the patient got gastric lavage according to the ED team since the patient had a lap band so was unable to be performed. Also onset of the patient received activated charcoal. It appears that toxicology team has been notified according to the ICU nurse. Patient was hypoxic so well was placed on nonrebreather. Some of her home medication consists of Seroquel 400 mg 1 tablet daily at bedtime, Synthroid. Claritin 10 mg daily According to the nurse she continues to be the severely drowsy and is on nonrebreather. And has tremors of her body. Some other workup during his hospital visit consisted of: Patient is afebrile. Had a hypotensive episode as low as 84/50 Chemistry panel is calcium, magnesium AST and ALT thyroid is within normal limits. Initial sodium the is 134 but repeated is 139. BUN/creatinine is within normal limits Urine tox screen is positive for tricyclic antidepressant otherwise rest is nondetected. Salsalate is less than now 1, Sinemet and less than 10 and serum alcohol was less than 10. CT of the head is reported as cerebral atrophy and no acute intracranial abnormality. No change compared to old exam. I personally reviewed the CT of the head and I agree there is no acute subacute ischemia and there is no typical hemorrhage. Patient does have the generalized cerebral atrophy but I feel a predominantly more over the bilateral frontal region. Review of Systems Review of system is limited by the parent positive and negative aspiration HPI. Past Medical History Past Medical History: Asthma, GERD/Reflux, Hypertension, Osteoarthritis (OA), Thyroid Disorder Additional Past Medical History / Comment(s): Insomnia, past migraines,PAST HYPERTENSION , sinus problems at times,HIP DISLOCATION X20 History of Any Multi-Drug Resistant Organisms: None Reported Past Surgical History: Adenoidectomy, Appendectomy, Bariatric Surgery, Joint Replacement, Orthopedic Surgery, Tonsillectomy, Tubal Ligation Additional Past Surgical History / Comment(s): 2004 lap band, panniculectomy, R hip ORIF/total arthroplasty, L hip arthroplasty x 2, r knee ACL repair and total right arthroplasty, R thumb sx, D&Cs, EGDs/colonoscopies, R breast benign bx. EGD Past Anesthesia/Blood Transfusion Reactions: Motion Sickness, Postoperative Nausea & Vomiting (PONV) Past Psychological History: ADD/ADHD, Anxiety, Bipolar, Depression, Panic Disorder Smoking Status: Former smoker - Past Family History Mother History Unknown: Yes Family Medical History: Cancer Additional Family Medical History / Comment(s): BLADDER CA- AT 70 YEARS OLD. Father History Unknown: Yes Family Medical History: Coronary Artery Disease (CAD), Myocardial Infarction (AR) Additional Family Medical History / Comment(s): AT 60 YRS OLD Medications and Allergies Home Medications Medication Instructions Recorded Confirmed Type Loratadine [Claritin] 10 mg PO DAILY 06/20/17 07/15/22 History lisinopriL [Zestril] 10 mg PO BID 06/20/17 07/15/22 History Albuterol Sulfate [Albuterol 2 puff INHALATION RT-QID PRN 03/12/20 07/15/22 His tory Sulfate Hfa] Levothyroxine Sodium [Synthroid] 88 mcg PO DAILY@1200 03/12/20 07/15/22 History Montelukast Sodium [Singulair] 10 mg PO HS 03/12/20 07/15/22 History Multivit-Min/Iron/Folic/Lutein 1 tab PO DAILY@1200 03/12/20 07/15/22 History [Centrum Silver Women Tablet] Omeprazole 20 mg PO DAILY 03/12/20 07/15/22 History Alendronate Sodium [Fosamax] 70 mg PO AHMADI 01/23/22 07/15/22 History Pravastatin Sodium [Pravachol] 20 mg PO HS 01/23/22 07/15/22 History amLODIPine [Norvasc] 10 mg PO DAILY 03/07/22 07/15/22 History Budesonide/Formoterol Fumarate 2 puff INHALATION RT-BID 07/15/22 07/15/22 History [Symbicort 80-4.5 Mcg Inhaler] Cholecalciferol [Vitamin D3 (25 50 mcg PO Q2D@1200 07/15/22 07/15/22 History Mcg = 1000 Iu)] Folic Acid 0.8 mg PO DAILY@1200 07/15/22 07/15/22 History L.acidoph,Paracasei, B.lactis 1 cap PO DAILY@1200 07/15/22 07/15/22 History [Probiotic] QUEtiapine FUMARATE [SEROquel XR] 400 mg PO HS 07/15/22 07/15/22 History Allergies Allergy/AdvReac Type Severity Reaction Status Date / Time spironolactone Allergy ANXIETY Verified 07/15/22 12:53 [From Aldactone] AND DEPRESSION buspirone [From BuSpar] AdvReac Insomnia Verified 07/15/22 16:16 morphine AdvReac Confusion Verified 07/15/22 12:53 Opioids - Morphine Analogues AdvReac Confusion Verified 07/15/22 12:53 Opioids-Meperidine and AdvReac Confusion Verified 07/15/22 12:53 Related OPIATES AdvReac Unknown AGITATION Uncoded 07/15/22 12:53 Physical Examination - Vital Signs Vital Signs: Vital Signs Temp Pulse Pulse Resp BP BP Pulse Ox 07/16/22 10:00 98 16 114/72 99 07/16/22 09:00 98 18 116/97 98 07/16/22 08:00 99.6 F 96 23 113/72 98 07/16/22 07:30 95 20 114/70 99 07/16/22 07:00 94 22 115/83 98 07/16/22 06:50 95 24 115/83 99 07/16/22 06:40 96 22 105/84 98 07/16/22 06:30 96 21 105/84 98 07/16/22 06:20 21 115/67 96 07/16/22 06:10 94 22 115/67 97 07/16/22 06:00 94 21 105/89 98 07/16/22 05:54 98.5 F 94 23 103/72 97 07/16/22 05:50 95 20 103/72 97 07/16/22 05:40 26 H 103/72 98 07/16/22 05:30 96 17 103/72 97 07/16/22 05:20 24 07/16/22 03:23 86 16 96/62 99 07/16/22 01:52 87 14 99/62 99 07/15/22 23:32 88 14 84/50 100 07/15/22 23:00 07/15/22 21:33 93/60 07/15/22 19:30 97.8 F 97 16 98/60 95 07/15/22 17:00 97.4 F L 89 16 90/55 94 L 07/15/22 16:09 96 07/15/22 13:33 95 14 92/58 96 07/15/22 11:48 92 14 82/70 95 FiO2 07/16/22 10:00 100 07/16/22 09:00 100 07/16/22 08:00 100 07/16/22 07:30 07/16/22 07:00 07/16/22 06:50 07/16/22 06:40 07/16/22 06:30 07/16/22 06:20 07/16/22 06:10 07/16/22 06:00 07/16/22 05:54 07/16/22 05:50 07/16/22 05:40 07/16/22 05:30 07/16/22 05:20 07/16/22 03:23 07/16/22 01:52 07/15/22 23:32 07/15/22 23:00 100 07/15/22 21:33 07/15/22 19:30 07/15/22 17:00 07/15/22 16:09 07/15/22 13:33 07/15/22 11:48 Intake and Output 07/15/22 07/16/22 07/16/22 22:59 06:59 14:59 Intake Total 120 Output Total 686 462 1755 Balance -500 -300 -1080 Intake: Intake, IV Titration 120 Amount Piperacillin-Tazobactam 3 100 .375 gm In Sodium Chloride 0.9% 100 ml @ 25 mls/hr IVPB Q8HR [facility] Rx# :[id number] Sodium Chloride 0.9% 1, 20 000 ml @ 10 mls/hr IV . Q24H [facility] Rx#:[id number] Output: Urine 322 [id number] Straight 500 Other: Voiding Method Indwelling Catheter GENERAL: The patient is lying in bed and is not in acute distress. CHEST: The heart rate is regular rate rhythm. No murmurs to auscultation. LUNG: Clear to auscultation bilaterally no wheezing noted throughout. Not labored breathing. Is on nonrebreather. ABDOMEN/GI: Bowel sounds present in all 4 quadrants. No tenderness to palpation throughout. NEUROLOGICAL: Limited because of her condition. Higher mental function: The patient is stupor. She is not following commands or verbalizing. Cranial nerves: She will briefly opens eyes with painful stimuli. Pupils are 3mm, round and reactive to light. Primary gaze is random movement of eye and seems roving. No facial weakness. No verbalizing. Rest is limited. T Motor: The strength is hard to assess individual muscles but would withdrawal upper and lower equally to painful stimuli. Has repeated nonrhythmic jerks of uppers predominately. Normal bulk. Decrease tone throughout. Cerebellum: Unable to assess. Sensation: Sensation is unable to assess light touch. But to painful stimuli is withdrawaling. Reflexes (right/left): 2+ throughout except. Patellar are 3+ bilaterally. Plantars are upgoing at baseline (not sure if baseline from prior lower ex tremity surgeries). Results - Laboratory Findings CBC and BMP: 07/16/22 06:16 07/16/22 06:16 Abnormal Lab Findings: Abnormal Labs 07/15/22 07/15/22 07/15/22 09:11 09:11 22:15 WBC 3.5 L Neutrophils # (Manual) Lymphocytes # (Manual) ABG pCO2 ABG HCO3 ABG O2 Saturation Sodium 134 L Chloride Carbon Dioxide Glucose 183 H Calcium CK-MB (CK-2) Urine Protein Urine Ketones Urine Blood Urine Mucus U Tricyclic Antidepress Detected H 07/16/22 07/16/22 07/16/22 05:22 06:16 06:16 WBC Neutrophils # (Manual) 8.40 H Lymphocytes # (Manual) 0.09 L ABG pCO2 33 L ABG HCO3 19 L ABG O2 Saturation 98.1 H Sodium Chloride 112 H Carbon Dioxide 19 L Glucose Calcium 7.9 L CK-MB (CK-2) Urine Protein Urine Ketones Urine Blood Urine Mucus U Tricyclic Antidepress 07/16/22 07/16/22 06:16 08:40 WBC Neutrophils # (Manual) Lymphocytes # (Manual) ABG pCO2 ABG HCO3 ABG O2 Saturation Sodium Chloride Carbon Dioxide Glucose Calcium CK-MB (CK-2) 19.8 H Urine Protein 2+ H Urine Ketones 2+ H Urine Blood Moderate H Urine Mucus Rare H U Tricyclic Antidepress Assessment and Plan Assessment: Toxic encephalopathy (intentional overdose of Seroquel) New onset seizure (witnessed one seizure by ED team) provoked due to medication effect (toxic dose of seroquel)/possible serotonin syndrome Continuous body jerks/tremors: either seizure or extraprymidal symptoms from toxic effect of seroquel/serotonin syndrome Suicidal attempt Chronic bipolar depression [place] possible aspiration pneumonia Acute hypoxic respiratory for on nonrebreather Plan: I'll pursue with a stat EEG Because of concern for seizures since the patient continues to have these body jerks I start the patient on Keppra with a loading dose of 1 g and the maintenance of 500 every 12 hours Placed on seizure precautions seizure pads I ordered CK level and myoglobin level Consider MRI of the brain if patient continues to be encephalopathic. Recommend IV fluids. I will place her on Ativan 0.5mg every Q4 hrs as needed (not large dose since causes respiratory depression/worsening hypoxia) Consulted psychiatry team We'll defer the rest of the medical management to primary and ICU team The plan was discussed with the patient's ICU nurse Thank you for the consultation Dr. Snyder will start neurology service tomorrow A.M. Time with Patient: Greater than 30
[2022-07-16] MEDS ORDERED: RX INFO: IV CONTRAST WAS GIVEN 1 EACH MISC MISCELLANE PRN (11:52)
[2022-07-16 12:07] LABS: Glucose,Whole Blood 91 mg/dL (70-110)
--- NOTE | 2022-07-16 14:23 | P.PN ---
Subjective Progress Note Date: 07/16/22 Principal diagnosis: Intentional overdose with Seroquel New onset seizure 77-year-old female presents emergency department after having taking 30 of Seroq uel and they were long-acting. Patient stated she had the thought of committing suicide and she took the pills and then immediately regretted it and told her . Patient took the pills around 8:00 in the morning. Patient states she's not thinking clearly right now. Patient denies any headache patient denies any numbness or weakness. Patient denies any chest pain difficulty breathing or shortness of breath patient denies any palpitations. Patient denies abdominal pain patient denies any nausea vomiting. states that the patient has been depressive states since before Thanksgiving she's been previously diagnosed with bipolar Upon arrival to ED patient had a temperature of 98, pulse of 51 and respiration of 16 and a blood pressure of 117/69 with a pulse ox of 96% on room air oxygen. Blood work reveals WBC of 3.5 with a hemoglobin of 13.1 and a platelet count of 199. Sodium is at 134 with a potassium level of 3.7 BUN is at 10 with a creatinine of 0.6 and a glucose was 183. --CAT scan of the brain that showed no acute abnormalities. EKG reveals sinus tachycardia with frequent supraventricular premature complexes -Controlled was consulted and recommended patient on telemetry given increased risk of QTC prolongation and arrhythmias Last night patient had episode of seizure activity which lasted about 2 minutes; generalized seizure which aborted when patient was given 2 mg of IV Ativan; patient is transferred to ICU Urine tox screen is positive for tricyclic antidepressant otherwise rest is nondetected. Salsalate is less than now 1, Sinemet and less than 10 and serum alcohol was less than 10. CT of the head is reported as cerebral atrophy and no acute intracranial abnormality. No change compared to old exam Placed on seizure precautions seizure pads --CK level and myoglobin level Consider MRI of the brain if patient continues to be encephalopathic. Recommend IV fluids. --Ativan 0.5mg every Q4 hrs as needed Objective - Vital Signs Vital signs: Vital Signs Temp 99.6 F 07/16/22 08:00 Pulse 98 07/16/22 09:00 Resp 18 07/16/22 09:00 BP 116/97 07/16/22 09:00 Pulse Ox 98 07/16/22 09:00 FiO2 100 07/16/22 09:00 Intake & Output 07/15/22 07/16/22 07/16/22 18:59 06:59 18:59 Intake Total 110 Output Total 800 450 Balance -800 -340 Weight 54.431 kg Intake: Intake, IV Titration 110 Amount Piperacillin-Tazobactam 3 100 .375 gm In Sodium Chloride 0.9% 100 ml @ 25 mls/hr IVPB Q8HR [facility] Rx# :[id number] Sodium Chloride 0.9% 1, 10 000 ml @ 10 mls/hr IV . Q24H [facility] Rx#:[id number] Output: Urine 800 450 Straight 500 - Exam HEENT: Pupils are round and equally reacting to light. EOMI. No scleral icterus. No conjunctival pallor. Normocephalic, atraumatic. No pharyngeal erythema. No thyromegaly. CARDIOVASCULAR: S1 and S2 present. No murmurs, rubs, or gallops. PULMONARY: Chest is clear to auscultation, no wheezing or crackles. ABDOMEN: Soft, nontender, nondistended, normoactive bowel sounds. No palpable organomegaly. MUSCULOSKELETAL: No joint swelling or deformity. EXTREMITIES: No cyanosis, clubbing, or pedal edema. NEUROLOGICAL: Gross neurological examination did not reveal any focal deficits. SKIN: No rashe - Labs CBC & Chem 7: 07/16/22 06:16 07/16/22 06:16 Labs: Abnormal Lab Results - Last 24 Hours (Table) 07/15/22 07/15/22 07/15/22 Range/Units 09:11 09:11 22:15 WBC 3.5 L (3.8-10.6) k/uL Neutrophils # (Manual) (1.3-7.7) k/uL Lymphocytes # (Manual) (1.0-4.8) k/uL ABG pCO2 (35-45) mmHg ABG HCO3 (21-25) mmol/L ABG O2 Saturation (94-97) % Sodium 134 L (137-145) mmol/L Chloride (98-107) mmol/L Carbon Dioxide (22-30) mmol/L Glucose 183 H (74-99) mg/dL Calcium (8.4-10.2) mg/dL U Tricyclic Antidepress Detected H (NotDetected) 01/02/2807/16/22 07/16/22 Range/Units 05:22 06:16 06:16 WBC (3.8-10.6) k/uL Neutrophils # (Manual) 8.40 H (1.3-7.7) k/uL Lymphocytes # (Manual) 0.09 L (1.0-4.8) k/uL ABG pCO2 33 L (35-45) mmHg ABG HCO3 19 L (21-25) mmol/L ABG O2 Saturation 98.1 H (94-97) % Sodium (137-145) mmol/L Chloride 112 H (98-107) mmol/L Carbon Dioxide 19 L (22-30) mmol/L Glucose (74-99) mg/dL Calcium 7.9 L (8.4-10.2) mg/dL U Tricyclic Antidepress (NotDetected) Assessment and Plan Assessment: 1. Intentional Seroquel overdose - Patient reports overdose with 30 extended-release Seroquel tablets; patient immediately regretted taking medication and told her and patient was brought to ED; patient was not given gastric lavage given history of bariatric surgery - Present control recommending continuous EKG monitoring given risk for QTC prolongation and atrial arrhythmias 2. Altered mental status; related to Seroquel overdose - We will monitor closely; neurochecks per protocol 3. Suicidal attempt; patient does have history of bipolar disorder; we will consult psych 4. Bipolar disorder/depression; patient takes Seroquel 200 mg by mouth daily at bedtime which has been placed on hold until further psychiatric evaluation 5. Asthma; not in exacerbation; albuterol inhaler 2 puffs 4 times a day when necessary, Advair HFA 2 puffs twice a day, Singulair 10 mg daily at bedtime 6. Hypertension; Norvasc 10 mg daily, lisinopril 10 mg twice a day 7. Hypothyroidism; levothyroxin 88 MCG daily 8. Hyperlipidemia; patient takes pravastatin 20 mg by mouth daily at bedtime DVT prophylaxis; SCDs/subcu heparin CODE STATUS; full code
--- NOTE | 2022-07-16 16:52 | P.CN ---
Psychiatric Consult - . Consult date: 07/16/22 Consult:: IDENTIFYING DATA: This patient is a 77 year old female with history of bipolar disorder and Cluster B traits, who presented following intentional overdose on 30 of Seroquel XR 400 mg tabs as a suicide attempt.. REASON FOR REFERRAL: Psychiatry was consulted for suicidal ideation/attempt HISTORY OF PRESENT ILLNESS: Per ER note, "This is a 77-year-old female presents emergency department after having taking 30 of Seroquel and they were long- acting. Patient stated she had the thought of committing suicide and she took the pills and then immediately regretted it and told her . Patient took the pills around 8:00 in the morning (on 07/15/2022). Patient states she's not thinking clearly right now." On my assessment, patient is asleep and intermittently awakens briefly while checking her reflexes, however she is too sedated to answer questions. She is observed to twitch her arms and legs sporadically (myoclonus) that is consistant with suspected serotonin syndrome. Reflexes are increased in her LLE and LUE. She appears flushed and restless at times. No diarrhea, agitation, or dilated pupils observed or reported. Per nurse, gastric lavage was not possible since patient has had gastric bypass surgery. Patient had a seizure at around midnight last night and required Ativan 2 mg IV x 1. Vitals reviewed and her heart rate, respirations, blood pressure and Sp02 saturations have been within normal limi ts. Temperature has been mostly stable with a mild increase in temperature from 98.5F this morning to slight elevation to 99.6F and 99.3F later in the morning and early afternoon. No rigidity, tremors or excessive sweating observed. Labs reviewed and no leukocytosis present, WBC is normal at 9.4, however initial CK is elevated at 1506 at 6:15am today (likely related to seizure activity rather than NMS). PAST PSYCHIATRIC HISTORY: Patient is not able to answer questions due to sedation and so the following was taken from chart review: Patient has a a history of bipolar disorder, Cluster B traits, REJI, ADD. Past psychiatric medications: Lamictal, Seroquel, Zoloft, Trintellix, Concerta, Xanax, Adderall XR, Wellbutrin XL Previous psychiatric hospitalizations: About 2-3 prior admissions at [facility] for suicide attempts by overdose. Past psychiatric outpatient follow-up: Not known at this time. Suicide attempts: overdose on 4 psychotropic medications in 2017, 2 other past psychiatric admissions for overdose including overdose on Ambien. PAST MEDICAL HISTORY: Past Medical History: Asthma, Hypertension History of Any Multi-Drug Resistant Organisms: None Reported Past Surgical History: Joint Replacement, Orthopedic Surgery Past Psychological History: Anxiety, Depression Smoking Status: Former smoker Past Alcohol Use History: None Reported Past Drug Use History: None Reported ALLERGIES: as per EMR. CHEMICAL DEPENDENCY HISTORY: Not known at this time since patient is too sedated to answer questions. FAMILY PSYCHIATRIC/SUBSTANCE USE HISTORY: Not known at this time since patient is too sedated to answer questions. SOCIAL HISTORY: Patient is , lives with . MENTAL STATUS EXAM: General Appearance: Patient appears to be stated age, is disheveled and asleep, fair hygiene and grooming, wearing hospital gown. Behavior: Patient too sedated from overdose to answer questions. Intermittent myoclonus (twitches) observed, at times restless. Speech: Unable to assess due to sedation. Mood/Affect: Unable to assess due to sedation. Suicidality/Homicidality: Status post suicide attempt by intentional overdose on Seroquel Perceptions: Unable to assess due to sedation. Though content/process: Unable to assess due to sedation. Memory and concentration: Unable to assess due to sedation. Judgment and insight: poor IMPRESSIONS: Suicide attempt by intentional drug overdose on Seroquel Bipolar disorder, by history Serotonin syndrome due to overdose on Seroquel PLAN: -At this time patient DOES meet criteria for inpatient psychiatric admission, however due to the severity of her overdose and subsequent medical complications,she is not medically stable to transfer to psychiatry at this time. She will need transfer to a geriatric psychiatry unit once medically stable. -Patient DOES NOT have decision making capacity at this time and is unable to reason through and communicate/appreciate the risks, benefits and alternatives to treatment. -For serotonin syndrome, continue supportive care to maintain stable vital signs as you are doing, including oxygen, IV fluids, cardiac monitoring. If patient becomes agitated, low doses of Ativan or Diazepam may be used for controlling agitation to provide adequate sedation while maintaining normal vital signs. Avoid or minimize use of physical restraints. If benzodiazepines and supportive care fail to improve agitation or correct vital signs, then consider cyproheptadine as antidote. -Patient is at increased risk for NMS. Continue to monitor vital signs for fever, monitor for significant motor changes such as rigidity. Agree with trending WBC and CK (already ordered) to monitor for leukocytosis and increasing CK. It is likely her CK elevation was from her seizure last night however this should be followed. Continue to hold Seroquel as you are and avoid other serotonergic medications. -Delirium precautions recommended with patient including - avoiding use of narcotics and [employer] sedatives, limit anticholinergic medications when possible, frequent re-orientation, minimize use of restraints, open window shades during the day and close them at night. -Continue suicide precautions and 1:1 sitter for safety. -Cannot leave AMA at this time. Patient will need a petition and certification if attempting to leave AMA. -When medically stable, patient is eligible for transfer to a psych bed when available. -Communicated plan to patient's nurse -Will continue to follow along -Please contact with any questions. 07/16/22 13:25 07/16/22 16:12
[2022-07-16 17:59] LABS: Glucose,Whole Blood 93 mg/dL (70-110)
--- NOTE | 2022-07-16 20:07 | EEG ---
ELECTROENCEPHALOGRAM REPORT CLINICAL HISTORY: This is a 77-year-old woman with serotonin overdose, who had a witnessed seizure in our facility and continues to be confused and has continuous tremors of her body. The video EEG is obtained to evaluate for seizure epileptiform activity. RELEVANT MEDICATIONS: 1. Keppra. 2. 2 mg Ativan. EEG TYPE: A routine 21-channel EEG is performed with video using the 10/20 electrode placement system. DESCRIPTION: The background consists of [id number] voltage of 6.5 to 7.5 hertz activity and at times the background consists of diffuse nonrhythmic delta activity. There was no physiological stage 2 sleep architecture. There is no focal slowing. Interictal and ictal is none. ACTIVATION PROCEDURE: Photic stimulation and hyperventilation is not performed. CLINICAL INTERPRETATION: This is an abnormal routine EEG. The background slowing is suggestive of moderate encephalopathy. There is no focal slowing, epileptiform discharge, or seizure on the EEG. Clinical correlation is recommended. MMLAVELLE / CATHIN: [id number] /
[2022-07-16] MEDS: levETIRAcetam IV 500 MG in SODIUM CHLORIDE 0.9% 100 ML IVPB SCH (20:23)
[2022-07-16] MEDS ORDERED: Potassium Replacement Protocol 1 EACH MISC MISCELLANE PRN (22:27)
--- NOTE | 2022-07-16 22:27 | CT ---
EXAMINATION TYPE: CT chest w con DATE OF EXAM: 07/16/2022 COMPARISON: None HISTORY: rule out subdiaphragm air Chest pain CT DLP: 330.4 mGycm Automated exposure control for dose reduction was used. CONTRAST: Performed with IV Contrast, patient injected with 100 mL of Isovue 300. Images obtained from the thoracic inlet to the diaphragm with the IV contrast. There is infiltrate and atelectasis in both lower lobes. Heart is mildly enlarged. 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 No mediastinal adenopathy. Thoracic aorta is atheromatous. There are n o hilar masses. There is dilated air filled esophagus. The thoracic spine is intact. Multilevel spondylotic changes in the mid and lower thoracic spine. The re is 15% compression deformity of T11 and T10. The sternum is intact. The ribs appear intact. There is pigtail Drainage catheter in the abdomen at the lesser curvature of the stomach. I do not see definite subdiaphragmatic air. There is apparent interposition of the hepatic flexure of the colon. Colon extends superiorly to the diaphragm. IMPRESSION: There is extensive infiltrate and atelectasis at both lung bases. No definite free air. There is left upper quadrant pigtail drainage catheter at the lesser curvature of the stomach.
[2022-07-16] MEDS: POTASSIUM CHLORIDE 10 MEQ in WATER FOR INJECTION 1 100ML.BAG IVPB SCH (23:10)
[2022-07-17] MEDS: PIPERACILLIN-TAZOBACTAM 3.375 GM in SODIUM CHLORIDE 0.9% 100 ML IVPB SCH ×3 (00:08→16:25)
[2022-07-17] MEDS: HEPARIN SODIUM,PORCINE/PF 5,000 UNIT/0.5 ML SYRINGE SQ SCH ×3 (00:08→16:24)
[2022-07-17] MEDS: POTASSIUM CHLORIDE 10 MEQ in WATER FOR INJECTION 1 100ML.BAG IVPB SCH ×5 (00:21→13:01)
[2022-07-17 00:54] LABS: Glucose,Whole Blood 86 mg/dL (70-110)
[2022-07-17 06:33] LABS: Glucose,Whole Blood 85 mg/dL (70-110)
[2022-07-17 06:36] LABS: Basophils % (A) 0 %; Eosinophils % (A) 0 %; Lymphocytes # (A) 0.5 k/uL (1.0-4.8); Lymphocytes % (A) 6 %; MCH 30.3 pg (25.0-35.0); MCHC 34.4 g/dL (31.0-37.0); MCV 88.1 fL (80.0-100.0); Mean Platelet Volume 8.9; Monocytes # (A) 0.2 k/uL (0-1.0); Monocytes % (A) 3 %; Neutrophils # (A) 8.4 k/uL (1.3-7.7); Neutrophils % (A) 91 %; Platelet Count 186 k/uL (150-450); RBC 3.63 m/uL (3.80-5.40); RDW 12.3 % (11.5-15.5); WBC 9.3 k/uL (3.8-10.6)
[2022-07-17 07:09] LABS: Calcium 7.7 mg/dL (8.4-10.2); Potassium 3.5 mmol/L (3.5-5.1)
--- NOTE | 2022-07-17 07:26 | XR ---
EXAMINATION TYPE: XR chest 1V portable DATE OF EXAM: 07/17/2022 CLINICAL HISTORY: Difficulty breathing and aspiration. TECHNIQUE: Single AP portable upright view of the chest is obtained. COMPARISON: Chest CT and x-ray from one day earlier FINDINGS: Persistent right basilar and left lower lung increased opacities. Cardiac silhouette size i s stable and within normal limits with atherosclerotic and ectatic thoracic aorta. Underlying scoliot ic curvature near the thoracolumbar junction redemonstrated. LAP-BAND device redemonstrated. IMPRESSION: Persistent left lower lung and patchy right basilar acute infiltrate and/or atelectasis. No significant change from one day earlier.
[2022-07-17] MEDS: PANTOPRAZOLE 40 MG/10 ML VIAL IVP SCH (08:16)
[2022-07-17] MEDS: LEVOTHYROXINE IVP 100 MCG/5 ML VIAL IV SCH (08:16)
[2022-07-17] MEDS: SODIUM CHLORIDE 0.9% 1,000 ML IV SCH ×2 (08:33→17:58)
[2022-07-17] MEDS: levETIRAcetam IV 500 MG in SODIUM CHLORIDE 0.9% 100 ML IVPB SCH ×2 (09:11→20:54)
--- NOTE | 2022-07-17 10:15 | P.PN ---
Subjective From records 77-year-old female presents emergency department after having taking 30 of Seroquel and they were long-acting. Patient stated she had the thought of committing suicide and she took the pills and then immediately regretted it and told her . Patient took the pills around 8:00 in the morning. Patient states she's not thinking clearly right now. Patient denies any headache patient denies any numbness or weakness. Patient denies any chest pain difficulty breathing or shortness of breath patient denies any palpitations. Vick osei denies abdominal pain patient denies any nausea vomiting. states that the patient has been depressive states since before Thanksgiving she's been previously diagnosed with bipolar Upon arrival to ED patient had a temperature of 98, pulse of 51 and respiration of 16 and a blood pressure of 117/69 with a pulse ox of 96% on room air oxygen. Blood work reveals WBC of 3.5 with a hemoglobin of 13.1 and a platelet count of 199. Sodium is at 134 with a potassium level of 3.7 BUN is at 10 with a creatinine of 0.6 and a glucose was 183. --CAT scan of the brain that showed no acute abnormalities. EKG reveals sinus tachycardia with frequent supraventricular premature complexes -Controlled was consulted and recommended patient on telemetry given increased risk of QTC prolongation and arrhythmias Last night patient had episode of seizure activity which lasted about 2 minutes; generalized seizure which aborted when patient was given 2 mg of IV Ativan; patient is transferred to ICU Urine tox screen is positive for tricyclic antidepressant otherwise rest is nondetected. Salsalate is less than now 1, Sinemet and less than 10 and serum alcohol was less than 10. CT of the head is reported as cerebral atrophy and no acute intracranial abnormality. No change compared to old exam Placed on seizure precautions seizure pads --CK level and myoglobin level Consider MRI of the brain if patient continues to be encephalopathic. Recommend IV fluids. --Ativan 0.5mg every Q4 hrs as needed 07/17/2022 Patient remains in the ICU, she is awake, follows simple commands but she mumbles, probably she still confused. Sitter at bedside. No restraints but Hitchcock catheter in a Place She nausea and the hospital but she is disoriented to time or person Patient currently breathing quietly, oxygen saturation is 97% on 6 L oxygen Creatinine kinase trending down. Hemoglobin 11. Patient developed by several consultants, including psychiatrist, patient does not have capacity to make decision. She is currently on Zosyn for aspiration pneumonia and Keppra. No more seizure- like activity Active Medications Generic Name Dose Route Start Last Admin Trade Name Freq PRN Reason Stop Dose Admin Heparin Sodium (Porcine) 5,000 unit 07/16/22 08:00 07/17/22 08:16 Heparin Sodium,Porcine/Pf 5,000 Unit/0.5 Ml Syringe SQ 5,000 unit Q8HR [facility] Administration Piperacillin Sod/Tazobactam 100 mls @ 25 mls/hr 07/16/22 08:00 07/17/22 08:15 Sod 3.375 gm/ Sodium Chloride IVPB 25 mls/hr Q8HR [facility] Administration Protocol Sodium Chloride 1,000 mls @ 100 mls/hr 07/16/22 07:45 07/17/22 08:33 Saline 0.9% IV Not Given .Q10H [facility] Levetiracetam 500 mg/ Sodium 105 mls @ 400 mls/hr 07/16/22 21:00 07/17/22 09:11 Chloride IVPB 400 mls/hr Q12HR [facility] Administration Levothyroxine Sodium 50 mcg 07/16/22 09:00 07/17/22 08:16 Levothyroxine Ivp 100 Mcg/5 Ml Vial IV 50 mcg DAILY [facility] Administration Lorazepam 0.5 mg 07/16/22 11:37 Lorazepam 2 Mg/Ml Inj IV Q4HR PRN Seizures Miscellaneous Information 1 each 07/16/22 11:52 Rx Info: Iv Contrast Was Given 1 Each Misc MISCELLANE 07/18/22 11:52 DAILY PRN Per Protocol Miscellaneous Information 1 each 07/16/22 22:27 Potassium Replacement Protocol 1 Each Misc MISCELLANE DAILY PRN Per Protocol Protocol Naloxone HCl 0.2 mg 07/16/22 06:06 Naloxone 0.4 Mg/Ml 1 Ml Vial IV Q2M PRN Opioid Reversal Pantoprazole Sodium 40 mg 07/16/22 09:00 07/17/22 08:16 Pantoprazole 40 Mg/10 Ml Vial IVP 40 mg DAILY [facility] Administration Objective - Vital Signs Vital signs: Vital Signs Temp 98.1 F 07/17/22 06:00 Pulse 85 07/17/22 09:00 Resp 17 07/17/22 09:00 BP 132/81 07/17/22 09:00 Pulse Ox 97 07/17/22 09:00 FiO2 100 07/16/22 19:00 Intake & Output 07/16/22 07/17/22 07/17/22 18:59 06:59 18:59 Intake Total 480 1000 450 Output Total 3240 556 103 Balance -2760 444 347 Weight 54.431 kg Intake: IV 950 450 Piperacillin-Tazobactam 3 100 100 .375 gm In Sodium Chloride 0.9% 100 ml @ 25 mls/hr IVPB Q8HR [facility] Rx# :[id number] Potassium Chloride 10 meq 400 100 In Water For Injection 1 100ml.bag @ 100 mls/hr IVPB Q1HR [facility] Rx#: [id number] Sodium Chloride 0.9% 1, 350 150 000 ml @ 100 mls/hr IV . Q10H [facility] Rx#:[id number] levETIRAcetam IV 500 mg 100 100 In Sodium Chloride 0.9% 100 ml @ 400 mls/hr IVPB Q12HR [facility] Rx#:[id number] Intake, IV Titration 480 50 Amount Piperacillin-Tazobactam 3 200 .375 gm In Sodium Chloride 0.9% 100 ml @ 25 mls/hr IVPB Q8HR [facility] Rx# :[id number] Sodium Chloride 0.9% 1, 180 50 000 ml @ 100 mls/hr IV . Q10H [facility] Rx#:[id number] levETIRAcetam IV 1,000 mg 100 In Saline 1 100ml.bag @ 400 mls/hr IVPB ONCE [facility] Rx#:[id number] Output: Urine 3240 556 103 Other: Voiding Method Indwelling Catheter Indwelling Catheter Indwelling Catheter # Bowel Movements 0 0 - Exam -GENERAL: The patient is alert and oriented x1 to place only, confused, not in any acute distress. Well developed, well nourished. HEENT: Pupils are round and equally reacting to light. EOMI. No scleral icterus. No conjunctival pallor. Normocephalic, atraumatic. No pharyngeal erythema. No thyromegaly. CARDIOVASCULAR: S1 and S2 present. No murmurs, rubs, or gallops. PULMONARY: Chest is clear to auscultation, no wheezing or crackles. ABDOMEN: Soft, nontender, nondistended, normoactive bowel sounds. No palpable organomegaly. MUSCULOSKELETAL: No joint swelling or deformity. EXTREMITIES: No cyanosis, clubbing, or pedal edema. NEUROLOGICAL: Gross neurological examination did not reveal any focal deficits. SKIN: No rashes. no petechiae. - Labs CBC & Chem 7: 07/17/22 05:44 07/17/22 05:44 Labs: Abnormal Lab Results - Last 24 Hours (Table) 07/16/22 07/16/22 07/16/22 Range/Units 06:16 06:16 16:25 RBC (3.80-5.40) m/uL Hgb (11.4-16.0) gm/dL Hct (34.0-46.0) % Neutrophils # (1.3-7.7) k/uL Lymphocytes # (1.0-4.8) k/uL Potassium (3.5-5.1) mmol/L Chloride (98-107) mmol/L Calcium (8.4-10.2) mg/dL Creatine Kinase 1506 H* 2661 H* (30-135) U/L CK-MB (CK-2) 19.8 H (0.0-2.4) ng/mL 07/16/22 07/17/22 07/17/22 Range/Units 16:25 05:44 05:44 RBC 3.63 L (3.80-5.40) m/uL Hgb 11.0 L (11.4-16.0) gm/dL Hct 32.0 L (34.0-46.0) % Neutrophils # 8.4 H (1.3-7.7) k/uL Lymphocytes # 0.5 L (1.0-4.8) k/uL Potassium 2.9 L (3.5-5.1) mmol/L Chloride 111 H (98-107) mmol/L Calcium 7.7 L (8.4-10.2) mg/dL Creatine Kinase (30-135) U/L CK-MB (CK-2) (0.0-2.4) ng/mL 07/17/22 Range/Units 05:44 RBC (3.80-5.40) m/uL Hgb (11.4-16.0) gm/dL Hct (34.0-46.0) % Neutrophils # (1.3-7.7) k/uL Lymphocytes # (1.0-4.8) k/uL Potassium (3.5-5.1) mmol/L Chloride (98-107) mmol/L Calcium (8.4-10.2) mg/dL Creatine Kinase 1419 H* (30-135) U/L CK-MB (CK-2) (0.0-2.4) ng/mL Assessment and Plan Assessment: 1. Intentional Seroquel overdose - Patient reports overdose with 30 extended-release Seroquel tablets; patient immediately regretted taking medication and told her and patient was brought to ED; patient was not given gastric lavage given history of bariatric surgery - Present control recommending continuous EKG monitoring given risk for QTC prolongation and atrial arrhythmias 2. Altered mental status;secondary to metabolic and toxic encephalopathy related to Seroquel overdose, With acute seizure disorder, Possible serotonin syndrome - Neurologist on the case -Started on Keppra - We will monitor closely; neurochecks per protocol 3. Suicidal attempt; patient does have history of bipolar disorder; we will consult psych: Patient cannot leave AMA, patient will need psychiatric admission 4. Bipolar disorder/depression; patient takes Seroquel 200 mg by mouth daily at bedtime which has been placed on hold until further psychiatric evaluation. 5. Asthma; not in exacerbation; albuterol inhaler 2 puffs 4 times a day when necessary, Advair HFA 2 puffs twice a day, Singulair 10 mg daily at bedtime 6. Hypertension; Norvasc 10 mg daily, lisinopril 10 mg twice a day 7. Hypothyroidism; levothyroxin 88 MCG daily 8. Hyperlipidemia; patient takes pravastatin 20 mg by mouth daily at bedtime DVT prophylaxis; SCDs/subcu heparin CODE STATUS; full code
[2022-07-17 11:57] LABS: Glucose,Whole Blood 73 mg/dL (70-110)
--- NOTE | 2022-07-17 12:32 | P.PN ---
Subjective Progress Note Date: 07/17/22 Principal diagnosis: intentional drug overdose with Seroquel This is a 77-year-old female patient with known history of bipolar depression, who presented emergency department yesterday after overdosing on a large quantity of Seroquel tablets. Based on calculation, the patient has significant total of 10,400 mg of Seroquel all at once. This was an intentional overdose. She took the pills and she immediately regretted and contacted her went to bring her to the emergency department. In the emergency, was not given a gastric lavage. I'm not certain if the patient was given activated charcoal also. Nevertheless, she was 100 stable. She did not have an EKG changes and her EKG was essentially within normal limits. Her mental status was normal when she arrived to the emergency department. Her vitals are all stable. It's she had a temperature of 98 with a pulse of 51 and respiration of 16 and a blood pressure of 117/69 with a pulse ox of 96% on room air oxygen. Her blood work showed a number of his account of 3.5 with a hemoglobin of 13.1 and a platelet count of 199. Sodium is at 134 with a potassium level of 3.7 BUN is at 10 with a creatinine of 0.6 and a glucose was 183. As the patient was in the emergency department, she was given a CAT scan of the brain that showed no acute abnormalities. Subsequently, around midnight, the patient had a generalized seizure. The seizure lasted for a total of 2 minutes and the patient was given a total of 2 mg of Ativan IV. Following that, the patient became progressively hypoxic. There is a possibility that the patient aspirated as the patient had some emesis post seizure activity. She had onle 1 seizure episode. At that point, she was placed on 100% nonrebreather facemask to bring a saturation above 90%. I was contacted and the patient got moved to the intensive care unit.. At this point in time, the patient withdraws to sternal rub and painful stimulation. She is not following commands. She is significantly obtunded, possibly postictal. No jerky body movements. No body stiffness. No tonic or clonic activity. No fever. No neck stiffness. No trauma. She remains hemodynamically stable and the most recent blood pressure is 105/85. A chest x- ray was done and showed bilateral infiltrates could be related to aspiration pneumonia/ARDS/noncardiogenic pulmonary edema. Repeat EKG will be done. Based on the cardiac rhythm on the monitor, no significant abnormalities are noted. Neurologic has been involved. Most recent QTC is at 330 milliseconds. Reevaluated today on 07/27/2022, patient is definitely more awake today, seems to be a bit slow, but arousable, follows simple instructions, and not in any distress. Remains on 6 L nasal cannula, IV fluid at 0.9 normal saline Septra 100 mL per hour today. Chest x-ray continues to show left lower lobe infiltrate. Last seizure was on 07/16. Continues to have elevated CPK nonetheless seems to be trending down. Overall the patient is better, hemodynamically stable, remains on antibiotics for presumptive aspiration pneumonia. WBC count is 9.3 and electrolytes are normal renal profile is normal CPK is 1419. Objective - Vital Signs Vital signs: Vital Signs Temp 98.1 F 07/17/22 06:00 Pulse 87 07/17/22 11:00 Resp 20 07/17/22 11:00 BP 133/77 07/17/22 11:00 Pulse Ox 92 L 07/17/22 11:00 FiO2 100 07/16/22 19:00 Intake & Output 07/16/22 07/17/22 07/17/22 18:59 06:59 18:59 Intake Total 480 1000 750 Output Total 3240 556 203 Balance -2760 444 547 Weight 54.431 kg Intake: IV 950 750 Piperacillin-Tazobactam 3 100 100 .375 gm In Sodium Chloride 0.9% 100 ml @ 25 mls/hr IVPB Q8HR [facility] Rx# :[id number] Potassium Chloride 10 meq 400 200 In Water For Injection 1 100ml.bag @ 100 mls/hr IVPB Q1HR [facility] Rx#: [id number] Sodium Chloride 0.9% 1, 350 350 000 ml @ 100 mls/hr IV . Q10H [facility] Rx#:[id number] levETIRAcetam IV 500 mg 100 100 In Sodium Chloride 0.9% 100 ml @ 400 mls/hr IVPB Q12HR [facility] Rx#:[id number] Intake, IV Titration 480 50 Amount Piperacillin-Tazobactam 3 200 .375 gm In Sodium Chloride 0.9% 100 ml @ 25 mls/hr IVPB Q8HR [facility] Rx# :[id number] Sodium Chloride 0.9% 1, 180 50 000 ml @ 100 mls/hr IV . Q10H [facility] Rx#:[id number] levETIRAcetam IV 1,000 mg 100 In Saline 1 100ml.bag @ 400 mls/hr IVPB ONCE [facility] Rx#:[id number] Output: Urine 3240 556 203 Other: Voiding Method Indwelling Catheter Indwelling Catheter Indwelling Catheter # Bowel Movements 0 0 - Exam Physical Exam: Revealed 77-year-old female in no distress, on 6 L nasal cannula. Head: Atraumatic, normocephalic. HEENT:[Neck is supple.] [No neck masses.] [No thyromegaly.] [No JVD.] Chest: [Fine crackles at the left base otherwise unremarkable. Cardiac Exam: [Normal S1 and S2, no S3 gallop, no murmur.] Abdomen: [Soft, nontender, no megaly, no rebound, no guarding, normal bowel sounds.] Extremities: [No clubbing, no edema, no cyanosis.] Neurological Exam: Significant improvement in her neurological status compared to what was described yesterday. Patient is arousable, awake, follows instructions, but relatively slow. Psychiatric: Normal mood, flat affect, relatively normal mental status. Skin: No rashes - Labs CBC & Chem 7: 07/17/22 05:44 07/17/22 05:44 Labs: Abnormal Lab Results - Last 24 Hours (Table) 07/16/22 07/16/22 07/17/22 Range/Units 16:25 16:25 05:44 RBC 3.63 L (3.80-5.40) m/uL Hgb 11.0 L (11.4-16.0) gm/dL Hct 32.0 L (34.0-46.0) % Neutrophils # 8.4 H (1.3-7.7) k/uL Lymphocytes # 0.5 L (1.0-4.8) k/uL Potassium 2.9 L (3.5-5.1) mmol/L Chloride (98-107) mmol/L Calcium (8.4-10.2) mg/dL Creatine Kinase 2661 H* (30-135) U/L 01/09/23 01/09/23 Range/Units 05:44 05:44 RBC (3.80-5.40) m/uL Hgb (11.4-16.0) gm/dL Hct (34.0-46.0) % Neutrophils # (1.3-7.7) k/uL Lymphocytes # (1.0-4.8) k/uL Potassium (3.5-5.1) mmol/L Chloride 111 H (98-107) mmol/L Calcium 7.7 L (8.4-10.2) mg/dL Creatine Kinase 1419 H* (30-135) U/L Assessment and Plan Assessment: Acute intentional drug overdose with Seroquel Acute seizure activity, likely drug induced, responded to Ativan. History of underlying bronchial asthma presently under control. Acute hypoxic respiratory failure secondary to aspiration pneumonia, Chronic bipolar disorder Benign essential hypertension Recommendation: Continue O2 via nasal cannula and titrate accordingly Continue antibiotics/Zosyn for presumptive aspiration pneumonia Continue to monitor for any seizure activity. Continue Keppra. Continue GI and DVT prophylaxis Continue suicidal precautions Chest x-ray was reviewed and will have follow-up chest x-ray in a.m. Continue IV fluid and monitor CPK. Monitor renal profile. We'll continue to monitor in the ICU for the next 24 hours. Will follow. Time with Patient: Less than 30
[2022-07-17 16:39] LABS: Glucose,Whole Blood 82 mg/dL (70-110)
[2022-07-17] MEDS: LORazepam 2 MG/ML INJ IV PRN (16:59)
--- NOTE | 2022-07-17 18:31 | P.PN ---
Subjective Progress Note Date: 07/17/22 Patient initially seen by Dr. Brendon Judd. Please refer to Dr. Judd's note for detail. Patient is a 77-year-old female with serotonin toxicity that was intentional due to overdose on Seroquel. Patient has previous history of suicidal attempts as well. Patient had 1 witnessed seizure and has body tremors. Patient was started on Keppra [address] Judd felt patient probably has serotonin syndrome. He recommended continue hydration. EEG revealed moderate encephalopathy. No epileptiform activity was seen. MRI brain recommended if not improved. Psych is also following. Per nursing report, patient is much more alert and awake, but hallucinates. She is awake, talking, knows the year, hallucinates, sometimes talks to her dog or sees a English, thinks that she is in psych [facility]izar[facility]. Also on IV fluids. Objective - Vital Signs Vital signs: Vital Signs Temp 97.9 F 07/17/22 16:00 Pulse 87 07/17/22 18:00 Resp 22 07/17/22 18:00 BP 134/74 07/17/22 18:00 Pulse Ox 98 07/17/22 17:00 FiO2 100 07/16/22 19:00 Intake & Output 07/16/22 07/17/22 07/17/22 18:59 06:59 18:59 Intake Total 480 1000 1850 Output Total 3240 556 653 Balance -2760 444 1197 Weight 54.431 kg Intake: IV 950 1550 Piperacillin-Tazobactam 3 100 200 .375 gm In Sodium Chloride 0.9% 100 ml @ 25 mls/hr IVPB Q8HR [facility] Rx# :[id number] Potassium Chloride 10 meq 400 300 In Water For Injection 1 100ml.bag @ 100 mls/hr IVPB Q1HR [facility] Rx#: [id number] Sodium Chloride 0.9% 1, 350 950 000 ml @ 100 mls/hr IV . Q10H [facility] Rx#:[id number] levETIRAcetam IV 500 mg 100 100 In Sodium Chloride 0.9% 100 ml @ 400 mls/hr IVPB Q12HR [facility] Rx#:[id number] Intake, IV Titration 480 50 Amount Piperacillin-Tazobactam 3 200 .375 gm In Sodium Chloride 0.9% 100 ml @ 25 mls/hr IVPB Q8HR [facility] Rx# :[id number] Sodium Chloride 0.9% 1, 180 50 000 ml @ 100 mls/hr IV . Q10H [facility] Rx#:[id number] levETIRAcetam IV 1,000 mg 100 In Saline 1 100ml.bag @ 400 mls/hr IVPB ONCE [facility] Rx#:[id number] Oral 300 Output: Urine 3240 556 653 Other: Voiding Method Indwelling Catheter Indwelling Catheter Indwelling Catheter # Bowel Movements 0 0 - Exam Patient is alert and awake, appears slightly encephalopathic. Slightly delirious. She knows that she is in [facility], knows her name, knows her 's name.l 4 activities equally. She mumbles. No obvious aphasia. Mouth is dry. Pupils are equal, round and reacting, patient blinks to visual threat. Face is symmetric. Her rocket scientist is equal, moves all 4 limbs equally. Reflexes are 2+ in the arms, 2+ at the knees, 1+ ankles and plantars are possibly upgoing. Sensations appears equal. Tone is equal. - Labs CBC & Chem 7: 07/18/22 06:43 07/18/22 06:43 Labs: Abnormal Lab Results - Last 24 Hours (Table) 07/16/22 07/17/22 07/17/22 Range/Units 16:25 05:44 05:44 RBC 3.63 L (3.80-5.40) m/uL Hgb 11.0 L (11.4-16.0) gm/dL Hct 32.0 L (34.0-46.0) % Neutrophils # 8.4 H (1.3-7.7) k/uL Lymphocytes # 0.5 L (1.0-4.8) k/uL Potassium 2.9 L (3.5-5.1) mmol/L Chloride 111 H (98-107) mmol/L Calcium 7.7 L (8.4-10.2) mg/dL Creatine Kinase (30-135) U/L 07/17/22 Range/Units 05:44 RBC (3.80-5.40) m/uL Hgb (11.4-16.0) gm/dL Hct (34.0-46.0) % Neutrophils # (1.3-7.7) k/uL Lymphocytes # (1.0-4.8) k/uL Potassium (3.5-5.1) mmol/L Chloride (98-107) mmol/L Calcium (8.4-10.2) mg/dL Creatine Kinase 1419 H* (30-135) U/L Assessment and Plan Assessment: Toxic encephalopathy (intentional overdose of Seroquel) New onset seizure (witnessed one seizure by ED team) provoked due to medication effect (toxic dose of seroquel)/possible serotonin syndrome Continuous body jerks/tremors: either seizure or extraprymidal symptoms from toxic effect of seroquel/serotonin syndrome Suicidal attempt Chronic bipolar depression Possible aspiration pneumonia Acute hypoxic respiratory failure. Plan: EEG revealed moderate encephalopathy. No epileptiform activity was seen. Because of concern for seizures since the patient continues to have these body jerks, Dr. Judd started the patient on Keppra with a loading dose of 1 g and the maintenance of 500 mg every 12 hours. Would suggest weaning off Keppra, once mentation normalizes. Placed on seizure precautions seizure pads CK level improving 1419 and myoglobin level pending. CT head 07/15/2022 revealed cerebral atrophy and no acute intracranial abnormality. Recommend IV fluids. Dr. Judd placed her on Ativan 0.5mg every Q4 hrs as needed (not large dose since causes respiratory depression/worsening hypoxia) Psychiatry and board. We'll defer the rest of the medical management to primary and ICU team
[2022-07-17 22:26] LABS: Glucose,Whole Blood 84 mg/dL (70-110)
[2022-07-17] MEDS ORDERED: POTASSIUM CHLORIDE 20 MEQ in WATER FOR INJECTION 1 100ML.BAG IVPB SCH (22:28)
[2022-07-18] MEDS: PIPERACILLIN-TAZOBACTAM 3.375 GM in SODIUM CHLORIDE 0.9% 100 ML IVPB SCH ×3 (00:23→17:09)
[2022-07-18] MEDS: HEPARIN SODIUM,PORCINE/PF 5,000 UNIT/0.5 ML SYRINGE SQ SCH ×3 (00:23→17:09)
[2022-07-18] MEDS: LORazepam 2 MG/ML INJ IV PRN (01:46)
[2022-07-18] MEDS: SODIUM CHLORIDE 0.9% 1,000 ML IV SCH (05:38)
[2022-07-18 06:02] LABS: Glucose,Whole Blood 71 mg/dL (70-110)
[2022-07-18 07:34] LABS: Basophils % (A) 0 %; Eosinophils # (A) 0.1 k/uL (0-0.7); Eosinophils % (A) 1 %; HCT 33.4 % (34.0-46.0); HGB 10.7 gm/dL (11.4-16.0); Lymphocytes # (A) 0.4 k/uL (1.0-4.8); Lymphocytes % (A) 6 %; MCH 28.6 pg (25.0-35.0); MCHC 32.1 g/dL (31.0-37.0); MCV 89.1 fL (80.0-100.0); Mean Platelet Volume 8.5; Monocytes # (A) 0.2 k/uL (0-1.0); Monocytes % (A) 3 %; Neutrophils # (A) 6.5 k/uL (1.3-7.7); Neutrophils % (A) 90 %; Platelet Count 190 k/uL (150-450); RBC 3.75 m/uL (3.80-5.40); RDW 12.8 % (11.5-15.5); WBC 7.3 k/uL (3.8-10.6)
[2022-07-18 07:44] LABS: African American GFR (CKD) >90 (>60 ml/min/1.73 sqM); Anion Gap 4 mmol/L; Blood Urea Nitrogen 12 mg/dL (7-17); Calcium 7.9 mg/dL (8.4-10.2); Carbon Dioxide 21 mmol/L (22-30); Chloride 113 mmol/L (98-107); Glucose 77 mg/dL (74-99); Non-African American GFR(CKD) 90 (>60 ml/min/1.73 sqM); Potassium 3.5 mmol/L (3.5-5.1); Sodium 138 mmol/L (137-145)
[2022-07-18] MEDS: PANTOPRAZOLE 40 MG/10 ML VIAL IVP SCH (08:35)
[2022-07-18] MEDS: POTASSIUM CHLORIDE 10 MEQ in WATER FOR INJECTION 1 100ML.BAG IVPB SCH ×4 (08:36→15:37)
[2022-07-18] MEDS: LEVOTHYROXINE IVP 100 MCG/5 ML VIAL IV SCH (08:36)
[2022-07-18] MEDS: levETIRAcetam IV 500 MG in SODIUM CHLORIDE 0.9% 100 ML IVPB SCH ×2 (08:36→21:33)
--- NOTE | 2022-07-18 10:33 | P.PN ---
Subjective From records 77-year-old female presents emergency department after having taking 30 of Seroquel and they were long-acting. Patient stated she had the thought of committing suicide and she took the pills and then immediately regretted it and told her . Patient took the pills around 8:00 in the morning. Patient states she's not thinking clearly right now. Patient denies any headache patient denies any numbness or weakness. Patient denies any chest pain difficulty breathing or shortness of breath patient denies any palpitations. Vick osei denies abdominal pain patient denies any nausea vomiting. states that the patient has been depressive states since before Thanksgiving she's been previously diagnosed with bipolar Upon arrival to ED patient had a temperature of 98, pulse of 51 and respiration of 16 and a blood pressure of 117/69 with a pulse ox of 96% on room air oxygen. Blood work reveals WBC of 3.5 with a hemoglobin of 13.1 and a platelet count of 199. Sodium is at 134 with a potassium level of 3.7 BUN is at 10 with a creatinine of 0.6 and a glucose was 183. --CAT scan of the brain that showed no acute abnormalities. EKG reveals sinus tachycardia with frequent supraventricular premature complexes -Controlled was consulted and recommended patient on telemetry given increased risk of QTC prolongation and arrhythmias Last night patient had episode of seizure activity which lasted about 2 minutes; generalized seizure which aborted when patient was given 2 mg of IV Ativan; patient is transferred to ICU Urine tox screen is positive for tricyclic antidepressant otherwise rest is nondetected. Salsalate is less than now 1, Sinemet and less than 10 and serum alcohol was less than 10. CT of the head is reported as cerebral atrophy and no acute intracranial abnormality. No change compared to old exam Placed on seizure precautions seizure pads --CK level and myoglobin level Consider MRI of the brain if patient continues to be encephalopathic. Recommend IV fluids. --Ativan 0.5mg every Q4 hrs as needed 07/17/2022 Patient remains in the ICU, she is awake, follows simple commands but she mumbles, probably she still confused. Sitter at bedside. No restraints but Hitchcock catheter in a Place She nausea and the hospital but she is disoriented to time or person Patient currently breathing quietly, oxygen saturation is 97% on 6 L oxygen Creatinine kinase trending down. Hemoglobin 11. Patient developed by several consultants, including psychiatrist, patient does not have capacity to make decision. She is currently on Zosyn for aspiration pneumonia and Keppra. No more seizure- like activity 07/18/2022 Patient still confused but she is improving, she knows she isn't particularly on hospital but she is disoriented to time and person. However she has somewhat insight into her illness, she knows she took extra pills on Seroquel She denies any headache or new weakness or numbness Patient is hemodynamically stable. Hemoglobin 10 Creatinine kinase trending down, 470 today. She is on 6 L the morning saturating 97% Remains on Zosyn Objective - Vital Signs Vital signs: Vital Signs Temp 97.7 F 07/18/22 08:00 Pulse 77 07/18/22 09:00 Resp 14 07/18/22 09:00 BP 148/94 07/18/22 09:00 Pulse Ox 95 07/18/22 08:00 FiO2 100 07/16/22 19:00 Intake & Output 07/17/22 07/18/22 07/18/22 18:59 06:59 18:59 Intake Total 1950 1425 860 Output Total 733 807 180 Balance 1217 618 680 Weight 67.1 kg Intake: IV 1650 1425 420 Piperacillin-Tazobactam 3 200 125 100 .375 gm In Sodium Chloride 0.9% 100 ml @ 25 mls/hr IVPB Q8HR [facility] Rx# :[id number] Potassium Chloride 10 meq 300 In Water For Injection 1 100ml.bag @ 100 mls/hr IVPB Q1HR [facility] Rx#: [id number] Sodium Chloride 0.9% 1, 1050 1200 220 000 ml @ 20 mls/hr IV . Q24H [facility] Rx#:[id number] levETIRAcetam IV 500 mg 100 100 100 In Sodium Chloride 0.9% 100 ml @ 400 mls/hr IVPB Q12HR [facility] Rx#:[id number] Intake, IV Titration 200 Amount Potassium Chloride 10 meq 200 In Water For Injection 1 100ml.bag @ 100 mls/hr IVPB Q1HR [facility] Rx#: [id number] Oral 300 240 Output: Urine 733 807 180 Other: Voiding Method Indwelling Catheter Indwelling Catheter Indwelling Catheter # Bowel Movements 0 - Exam -GENERAL: The patient is alert and oriented x1 to place only, confused, not in any acute distress. Well developed, well nourished. HEENT: Pupils are round and equally reacting to light. EOMI. No scleral icterus. No conjunctival pallor. Normocephalic, atraumatic. No pharyngeal erythema. No thyromegaly. CARDIOVASCULAR: S1 and S2 present. No murmurs, rubs, or gallops. PULMONARY: Chest is clear to auscultation, no wheezing or crackles. ABDOMEN: Soft, nontender, nondistended, normoactive bowel sounds. No palpable organomegaly. MUSCULOSKELETAL: No joint swelling or deformity. EXTREMITIES: No cyanosis, clubbing, or pedal edema. NEUROLOGICAL: Gross neurological examination did not reveal any focal deficits. SKIN: No rashes. no petechiae. - Labs CBC & Chem 7: 07/18/22 06:43 07/18/22 06:43 Labs: Abnormal Lab Results - Last 24 Hours (Table) 07/18/22 07/18/22 07/18/22 Range/Units 06:43 06:43 06:43 RBC 3.75 L (3.80-5.40) m/uL Hgb 10.7 L (11.4-16.0) gm/dL Hct 33.4 L (34.0-46.0) % Lymphocytes # 0.4 L (1.0-4.8) k/uL Chloride 113 H (98-107) mmol/L Carbon Dioxide 21 L (22-30) mmol/L Calcium 7.9 L (8.4-10.2) mg/dL Creatine Kinase 470 H (30-135) U/L Assessment and Plan Assessment: 1. Intentional Seroquel overdose - Patient reports overdose with 30 extended-release Seroquel tablets; patient immediately regretted taking medication and told her and patient was brought to ED; patient was not given gastric lavage given history of bariatric surgery - Present control recommending continuous EKG monitoring given risk for QTC prolongation and atrial arrhythmias 2. Altered mental status;secondary to metabolic and toxic encephalopathy related to Seroquel overdose, With acute seizure disorder, Possible serotonin syndrome - Neurologist on the case -Started on Keppra - We will monitor closely; neurochecks per protocol 3. Suicidal attempt; patient does have history of bipolar disorder; we will consult psych: Patient cannot leave AMA, patient will need psychiatric admission 4. Aspiration pneumonia with acute hypoxic respiratory failure: Continue with Zosyn and aspiration precaution, she tolerates diet well. The pulmonary team on the case 5. Asthma; not in exacerbation; albuterol inhaler 2 puffs 4 times a day when necessary, Advair HFA 2 puffs twice a day, Singulair 10 mg daily at bedtime 6. Hypertension; Norvasc 10 mg daily, lisinopril 10 mg twice a day 7. Hypothyroidism; levothyroxin 88 MCG daily 8. Hyperlipidemia; patient takes pravastatin 20 mg by mouth daily at bedtime DVT prophylaxis; SCDs/subcu heparin CODE STATUS; full code
--- NOTE | 2022-07-18 11:49 | P.PN ---
Subjective Progress Note Date: 07/18/22 Principal diagnosis: intentional drug overdose with Seroquel This is a 77-year-old female patient with known history of bipolar depression, who presented emergency department yesterday after overdosing on a large quantity of Seroquel tablets. Based on calculation, the patient has significant total of 10,400 mg of Seroquel all at once. This was an intentional overdose. She took the pills and she immediately regretted and contacted her went to bring her to the emergency department. In the emergency, was not given a gastric lavage. I'm not certain if the patient was given activated charcoal also. Nevertheless, she was 100 stable. She did not have an EKG changes and her EKG was essentially within normal limits. Her mental status was normal when she arrived to the emergency department. Her vitals are all stable. It's she had a temperature of 98 with a pulse of 51 and respiration of 16 and a blood pressure of 117/69 with a pulse ox of 96% on room air oxygen. Her blood work showed a number of his account of 3.5 with a hemoglobin of 13.1 and a platelet count of 199. Sodium is at 134 with a potassium level of 3.7 BUN is at 10 with a creatinine of 0.6 and a glucose was 183. As the patient was in the emergency department, she was given a CAT scan of the brain that showed no acute abnormalities. Subsequently, around midnight, the patient had a generalized seizure. The seizure lasted for a total of 2 minutes and the patient was given a total of 2 mg of Ativan IV. Following that, the patient became progressively hypoxic. There is a possibility that the patient aspirated as the patient had some emesis post seizure activity. She had onle 1 seizure episode. At that point, she was placed on 100% nonrebreather facemask to bring a saturation above 90%. I was contacted and the patient got moved to the intensive care unit.. At this point in time, the patient withdraws to sternal rub and painful stimulation. She is not following commands. She is significantly obtunded, possibly postictal. No jerky body movements. No body stiffness. No tonic or clonic activity. No fever. No neck stiffness. No trauma. She remains hemodynamically stable and the most recent blood pressure is 105/85. A chest x- ray was done and showed bilateral infiltrates could be related to aspiration pneumonia/ARDS/noncardiogenic pulmonary edema. Repeat EKG will be done. Based on the cardiac rhythm on the monitor, no significant abnormalities are noted. Neurologic has been involved. Most recent QTC is at 330 milliseconds. Reevaluated today on 07/17/2022, patient is definitely more awake today, seems to be a bit slow, but arousable, follows simple instructions, and not in any distress. Remains on 6 L nasal cannula, IV fluid at 0.9 normal saline Septra 100 mL per hour today. Chest x-ray continues to show left lower lobe infiltrate. Last seizure was on 07/16. Continues to have elevated CPK nonetheless seems to be trending down. Overall the patient is better, hemodynamically stable, remains on antibiotics for presumptive aspiration pneumonia. WBC count is 9.3 and electrolytes are normal renal profile is normal CPK is 1419. Reevaluated today on 07/18/2022, patient remains in the ICU, continues to steadily improve, remained generally weak, CPK is down to 470, steadily improving. It was 1419 yesterday. Patient is on nasal cannula at 5 L, her IV fluid is at 20 mL/h, she has a sitter at bedside, and overall she is doing well, recovering nicely. Plan is to transfer the patient to regular medical floor today, and eventually decide whether the patient needs inpatient psychiatric evaluation. That will be decided upon later. In the meantime I plan to schedule the patient out of the ICU, physical therapy to evaluate, and psychiatry to follow. In the meantime the patient will remain on suicidal precautions. CBC is unremarkable, electrodes are normal renal profile is normal CPK is 470. Objective - Vital Signs Vital signs: Vital Signs Temp 97.7 F 07/18/22 08:00 Pulse 77 07/18/22 09:00 Resp 14 07/18/22 09:00 BP 148/94 07/18/22 09:00 Pulse Ox 95 07/18/22 08:00 FiO2 100 07/16/22 19:00 Intake & Output 07/17/22 07/18/22 07/18/22 18:59 06:59 18:59 Intake Total 1950 1425 880 Output Total 733 807 180 Balance 1217 618 700 Weight 67.1 kg Intake: IV 1650 1425 440 Piperacillin-Tazobactam 3 200 125 100 .375 gm In Sodium Chloride 0.9% 100 ml @ 25 mls/hr IVPB Q8HR [facility] Rx# :[id number] Potassium Chloride 10 meq 300 In Water For Injection 1 100ml.bag @ 100 mls/hr IVPB Q1HR [facility] Rx#: [id number] Sodium Chloride 0.9% 1, 1050 1200 240 000 ml @ 20 mls/hr IV . Q24H [facility] Rx#:[id number] levETIRAcetam IV 500 mg 100 100 100 In Sodium Chloride 0.9% 100 ml @ 400 mls/hr IVPB Q12HR [facility] Rx#:[id number] Intake, IV Titration 200 Amount Potassium Chloride 10 meq 200 In Water For Injection 1 100ml.bag @ 100 mls/hr IVPB Q1HR [facility] Rx#: [id number] Oral 300 240 Output: Urine 733 807 180 Other: Voiding Method Indwelling Catheter Indwelling Catheter Indwelling Catheter # Bowel Movements 0 - Exam Physical Exam: Revealed 77-year-old female in no distress, on 5L nasal cannula. Head: Atraumatic, normocephalic. HEENT:[Neck is supple.] [No neck masses.] [No thyromegaly.] [No JVD.] Chest: [Fine crackles at the left base otherwise unremarkable. Cardiac Exam: [Normal S1 and S2, no S3 gallop, no murmur.] Abdomen: [Soft, nontender, no megaly, no rebound, no guarding, normal bowel sounds.] Extremities: [No clubbing, no edema, no cyanosis.] Neurological Exam: Steady improvement in her overall neurological status, alert oriented 3, patient is generally weak Psychiatric: Normal mood, flat affect, relatively normal mental status. Skin: No rashes - Labs CBC & Chem 7: 07/18/22 06:43 07/18/22 06:43 Labs: Abnormal Lab Results - Last 24 Hours (Table) 07/18/22 07/18/22 07/18/22 Range/Units 06:43 06:43 06:43 RBC 3.75 L (3.80-5.40) m/uL Hgb 10.7 L (11.4-16.0) gm/dL Hct 33.4 L (34.0-46.0) % Lymphocytes # 0.4 L (1.0-4.8) k/uL Chloride 113 H (98-107) mmol/L Carbon Dioxide 21 L (22-30) mmol/L Calcium 7.9 L (8.4-10.2) mg/dL Creatine Kinase 470 H (30-135) U/L Assessment and Plan Assessment: Impression: Acute intentional drug overdose with Seroquel Acute seizure activity, likely drug induced, responded to Ativan. History of underlying bronchial asthma presently under control. Acute hypoxic respiratory failure secondary to aspiration pneumonia, Chronic bipolar disorder Benign essential hypertension Recommendation: Continue O2 via nasal cannula and titrate accordingly Continue antibiotics/Zosyn for presumptive aspiration pneumonia Continue to monitor for any seizure activity. Continue Keppra. Continue GI and DVT prophylaxis Continue suicidal precautions Continue IV fluid and monitor CPK. Monitor renal profile. Both are improving. Transfer the patient today to a regular medical floor. Will follow. Time with Patient: Less than 30
--- NOTE | 2022-07-18 14:22 | P.PN ---
Progress Note - Text Progress Note Date: 07/18/22 Interval History: Patient was seen resting in bed and was directable and agreeable to speak with marketing writer in her room. Currently, the patient reports that she continues to feel significantly depressed. She reports that she has been feeling like this for quite some time and is uncertain about how to get better. She does admit that the overdose was with the intention to end her life. She is currently reporting suicidal ideation however no intention or plan at this time. She is denying any homicidal ideation, intention, and/or plan. She reports that she has been able to sleep but was not sleeping prior to this admission. She is not reporting any issues regarding her general medical health at this time. She denies any auditory or visual hallucinations. She reports no paranoia or other delusions. Mental Status Exam: General Appearance: Patient appears to be stated age is alert, directable, and cooperative. Behavior: Patient is calmly lying down in bed without any agitated behavior. She is eating her lunch. Speech: Patient's speech is fluent and nonpressured. Soft-spoken. Low in volume. Mood/Affect: Mood is "not feeling good mentally." affect is congruent and constricted. Withdrawn. Suicidality/Homicidality: Patient endorses suicidal ideation however denies any homicidal ideation. Perceptions: Patient denies any visual hallucinations and denies any auditory hallucinations Though content/process: Patient is dysphoric. No delusional thought content endorsed. Memory and concentration: AOX3, grossly intact for the purposes of this session Judgment and insight: Poor Vital Signs Temp 97.8 F 07/18/22 12:00 Pulse 84 07/18/22 12:00 Resp 23 07/18/22 12:00 BP 135/88 07/18/22 12:00 Pulse Ox 94 L 07/18/22 12:00 FiO2 100 07/16/22 19:00 Intake & Output 07/17/22 07/18/22 07/18/22 18:59 06:59 18:59 Intake Total 1950 1425 1160 Output Total 733 807 480 Balance 1217 618 680 Weight 67.1 kg Intake: IV 1650 1425 600 Piperacillin-Tazobactam 3 200 125 100 .375 gm In Sodium Chloride 0.9% 100 ml @ 25 mls/hr IVPB Q8HR [facility] Rx# :[id number] Potassium Chloride 10 meq 300 In Water For Injection 1 100ml.bag @ 100 mls/hr IVPB Q1HR [facility] Rx#: [id number] Sodium Chloride 0.9% 1, 1050 1200 300 000 ml @ 20 mls/hr IV . Q24H [facility] Rx#:[id number] levETIRAcetam IV 500 mg 100 100 200 In Sodium Chloride 0.9% 100 ml @ 400 mls/hr IVPB Q12HR [facility] Rx#:[id number] Intake, IV Titration 200 Amount Potassium Chloride 10 meq 200 In Water For Injection 1 100ml.bag @ 100 mls/hr IVPB Q1HR [facility] Rx#: [id number] Oral 300 360 Output: Urine 733 807 480 Other: Voiding Method Indwelling Catheter Indwelling Catheter Indwelling Catheter # Bowel Movements 0 Laboratory Results - Last 24 Hours 07/17/22 07/17/22 07/18/22 16:37 22:24 06:00 WBC RBC Hgb Hct MCV MCH MCHC RDW Plt Count MPV Neutrophils % Lymphocytes % Monocytes % Eosinophils % Basophils % Neutrophils # Lymphocytes # Monocytes # Eosinophils # Basophils # Sodium Potassium Chloride Carbon Dioxide Anion Gap BUN Creatinine Est GFR (CKD-EPI)AfAm Est GFR (CKD-EPI)NonAf Glucose POC Glucose (mg/dL) 82 84 71 POC Glu Newspaper Columnist ID Dina Shin, Rossy Prince Calcium Creatine Kinase 07/18/22 07/18/22 07/18/22 06:43 06:43 06:43 WBC 7.3 RBC 3.75 L Hgb 10.7 L Hct 33.4 L MCV 89.1 MCH 28.6 MCHC 32.1 RDW 12.8 Plt Count 190 MPV 8.5 Neutrophils % 90 Lymphocytes % 6 Monocytes % 3 Eosinophils % 1 Basophils % 0 Neutrophils # 6.5 Lymphocytes # 0.4 L Monocytes # 0.2 Eosinophils # 0.1 Basophils # 0.0 Sodium 138 Potassium 3.5 Chloride 113 H Carbon Dioxide 21 L Anion Gap 4 BUN 12 Creatinine 0.57 Est GFR (CKD-EPI)AfAm >90 Est GFR (CKD-EPI)NonAf 90 Glucose 77 POC Glucose (mg/dL) POC Glu Newspaper Columnist ID Calcium 7.9 L Creatine Kinase 470 H Assessment Suicide attempt by intentional drug overdose on Seroquel Bipolar disorder, by history Serotonin syndrome due to overdose on Seroquel Plan: -At this time patient DOES meet criteria for inpatient psychiatric admission, however due to the severity of her overdose and subsequent medical complications,she is not medically stable to transfer to psychiatry at this time. She will need transfer to a geriatric psychiatry unit once medically stable. -Patient DOES NOT have decision making capacity at this time and is unable to reason through and communicate/appreciate the risks, benefits and alternatives to treatment. -For serotonin syndrome, continue supportive care to maintain stable vital signs as you are doing, including oxygen, IV fluids, cardiac monitoring. If patient becomes agitated, low doses of Ativan or Diazepam may be used for controlling agitation to provide adequate sedation while maintaining normal vital signs. Avoid or minimize use of physical restraints. If benzodiazepines and supportive care fail to improve agitation or correct vital signs, then consider cyproheptadine as antidote. -Patient is at increased risk for NMS. Continue to monitor vital signs for fever, monitor for significant motor changes such as rigidity. Continue to hold Seroquel as you are and avoid other serotonergic medications. -Delirium precautions recommended with patient including - avoiding use of narcotics and [employer] OFF[employer]ER sedatives, limit anticholinergic medications when possible, frequent re-orientation, minimize use of restraints, open window shades during the day and close them at night. -Continue suicide precautions and 1:1 sitter for safety. -Cannot leave AMA at this time. Patient will need a petition and certification if attempting to leave AMA. -When medically stable, patient is eligible for transfer to a psych bed when available. -Psychiatry will sign off at this time. Please call us or reconsult us with any questions or concerns.
[2022-07-19] MEDS: HEPARIN SODIUM,PORCINE/PF 5,000 UNIT/0.5 ML SYRINGE SQ SCH ×4 (00:25→23:59)
[2022-07-19] MEDS: PIPERACILLIN-TAZOBACTAM 3.375 GM in SODIUM CHLORIDE 0.9% 100 ML IVPB SCH ×4 (00:25→23:59)
[2022-07-19 04:38] LABS: African American GFR (CKD) >90 (>60 ml/min/1.73 sqM); Anion Gap 1 mmol/L; Blood Urea Nitrogen 12 mg/dL (7-17); Calcium 8.2 mg/dL (8.4-10.2); Carbon Dioxide 22 mmol/L (22-30); Chloride 111 mmol/L (98-107); Glucose 126 mg/dL (74-99); Non-African American GFR(CKD) >90 (>60 ml/min/1.73 sqM); Potassium 3.4 mmol/L (3.5-5.1); Sodium 134 mmol/L (137-145)
[2022-07-19] MEDS: SODIUM CHLORIDE 0.9% 1,000 ML IV SCH (04:52)
[2022-07-19] MEDS: levETIRAcetam IV 500 MG in SODIUM CHLORIDE 0.9% 100 ML IVPB SCH ×2 (09:45→21:38)
[2022-07-19] MEDS: LEVOTHYROXINE IVP 100 MCG/5 ML VIAL IV SCH (09:51)
[2022-07-19] MEDS: PANTOPRAZOLE 40 MG/10 ML VIAL IVP SCH (09:51)
[2022-07-19] MEDS ORDERED: Potassium Replacement Protocol 1 EACH MISC MISCELLANE PRN (11:29)
--- NOTE | 2022-07-19 11:33 | P.PN ---
Subjective From records 77-year-old female presents emergency department after having taking 30 of Seroquel and they were long-acting. Patient stated she had the thought of committing suicide and she took the pills and then immediately regretted it and told her . Patient took the pills around 8:00 in the morning. Patient states she's not thinking clearly right now. Patient denies any headache patient denies any numbness or weakness. Patient denies any chest pain difficulty breathing or shortness of breath patient denies any palpitations. Vick osei denies abdominal pain patient denies any nausea vomiting. states that the patient has been depressive states since before Thanksgiving she's been previously diagnosed with bipolar Upon arrival to ED patient had a temperature of 98, pulse of 51 and respiration of 16 and a blood pressure of 117/69 with a pulse ox of 96% on room air oxygen. Blood work reveals WBC of 3.5 with a hemoglobin of 13.1 and a platelet count of 199. Sodium is at 134 with a potassium level of 3.7 BUN is at 10 with a creatinine of 0.6 and a glucose was 183. --CAT scan of the brain that showed no acute abnormalities. EKG reveals sinus tachycardia with frequent supraventricular premature complexes -Controlled was consulted and recommended patient on telemetry given increased risk of QTC prolongation and arrhythmias Last night patient had episode of seizure activity which lasted about 2 minutes; generalized seizure which aborted when patient was given 2 mg of IV Ativan; patient is transferred to ICU Urine tox screen is positive for tricyclic antidepressant otherwise rest is nondetected. Salsalate is less than now 1, Sinemet and less than 10 and serum alcohol was less than 10. CT of the head is reported as cerebral atrophy and no acute intracranial abnormality. No change compared to old exam Placed on seizure precautions seizure pads --CK level and myoglobin level Consider MRI of the brain if patient continues to be encephalopathic. Recommend IV fluids. --Ativan 0.5mg every Q4 hrs as needed 07/17/2022 Patient remains in the ICU, she is awake, follows simple commands but she mumbles, probably she still confused. Sitter at bedside. No restraints but Hitchcock catheter in a Place She nausea and the hospital but she is disoriented to time or person Patient currently breathing quietly, oxygen saturation is 97% on 6 L oxygen Creatinine kinase trending down. Hemoglobin 11. Patient developed by several consultants, including psychiatrist, patient does not have capacity to make decision. She is currently on Zosyn for aspiration pneumonia and Keppra. No more seizure- like activity 07/18/2022 Patient still confused but she is improving, she knows she isn't particularly on hospital but she is disoriented to time and person. However she has somewhat insight into her illness, she knows she took extra pills on Seroquel She denies any headache or new weakness or numbness Patient is hemodynamically stable. Hemoglobin 10 Creatinine kinase trending down, 470 today. She is on 6 L the morning saturating 97% Remains on Zosyn 07/19/2022 Patient is back to her basic mental status, she denies any specific symptoms today. General she is in the hospital and she knows the date and oriented to person and she has insight into her illness. Vitals stable. BMP is unremarkable. Neurology already signed off. I discussed the case with pulmonary/critical care team and they cleared her for discharge today. Patient is medically stable pending placement. Psychiatric recommended geriatric psychiatric unit, social security assessor on the case, patient is medically stable for discharge pending placement Also we'll monitor her hemoglobin Objective - Vital Signs Vital signs: Vital Signs Temp 98.5 F 07/19/22 09:57 Pulse 90 07/19/22 09:57 Resp 14 07/19/22 09:57 BP 149/102 07/19/22 09:57 Pulse Ox 97 07/19/22 09:57 FiO2 100 07/16/22 19:00 Intake & Output 07/18/22 07/19/22 07/19/22 18:59 06:59 18:59 Intake Total 1540 660 200 Output Total 860 855 250 Balance 680 -195 -50 Weight 66.5 kg Intake: IV 780 660 200 Piperacillin-Tazobactam 3 200 400 100 .375 gm In Sodium Chloride 0.9% 100 ml @ 25 mls/hr IVPB Q8HR [facility] Rx# :[id number] Sodium Chloride 0.9% 1, 380 260 000 ml @ 20 mls/hr IV . Q24H [facility] Rx#:[id number] levETIRAcetam IV 500 mg 200 100 In Sodium Chloride 0.9% 100 ml @ 400 mls/hr IVPB Q12HR [facility] Rx#:[id number] Intake, IV Titration 400 Amount Potassium Chloride 10 meq 400 In Water For Injection 1 100ml.bag @ 100 mls/hr IVPB Q1HR [facility] Rx#: [id number] Oral 360 Output: Urine 860 855 250 Other: Voiding Method Indwelling Catheter Indwelling Catheter Indwelling Catheter - Exam -GENERAL: The patient is alert and oriented x1 to place only, confused, not in any acute distress. Well developed, well nourished. HEENT: Pupils are round and equally reacting to light. EOMI. No scleral icterus. No conjunctival pallor. Normocephalic, atraumatic. No pharyngeal erythema. No thyromegaly. CARDIOVASCULAR: S1 and S2 present. No murmurs, rubs, or gallops. PULMONARY: Chest is clear to auscultation, no wheezing or crackles. ABDOMEN: Soft, nontender, nondistended, normoactive bowel sounds. No palpable organomegaly. MUSCULOSKELETAL: No joint swelling or deformity. EXTREMITIES: No cyanosis, clubbing, or pedal edema. NEUROLOGICAL: Gross neurological examination did not reveal any focal deficits. SKIN: No rashes. no petechiae. - Labs CBC & Chem 7: 07/18/22 06:43 07/19/22 03:49 Labs: Abnormal Lab Results - Last 24 Hours (Table) 07/16/22 07/19/22 Range/Units 06:16 03:49 Sodium 134 L (137-145) mmol/L Potassium 3.4 L (3.5-5.1) mmol/L Chloride 111 H (98-107) mmol/L Creatinine 0.49 L (0.52-1.04) mg/dL Glucose 126 H (74-99) mg/dL Calcium 8.2 L (8.4-10.2) mg/dL Myoglobin 3247 H (<=58) ng/mL Assessment and Plan Assessment: 1. Intentional Seroquel overdose with suicidal attempt - Patient reports overdose with 30 extended-release Seroquel tablets; patient immediately regretted taking medication and told her and patient was brought to ED; patient was not given gastric lavage given history of bariatric surgery - Patient is hemodynamically stable for transfer to geriatric psych unit once bed available. 2. Altered mental status;secondary to metabolic and toxic encephalopathy related to Seroquel overdose, With acute seizure disorder, Possible serotonin syndrome - Started on Keppra , Patient informed - Zaheer junior neurologist cleared her for discharge and there are signs of the case as per staff 3. Aspiration pneumonia with acute hypoxic respiratory failure: Continue with Z osyn and aspiration precaution, she tolerates diet well. The pulmonary team on the case and they cleared patient for discharge 4. Asthma; not in exacerbation; albuterol inhaler 2 puffs 4 times a day when necessary, Advair HFA 2 puffs twice a day, Singulair 10 mg daily at bedtime 5. Hyperlipidemia; patient takes pravastatin 20 mg by mouth daily at bedtime 6. Hypertension; Norvasc 10 mg daily, lisinopril 10 mg twice a day 7. Hypothyroidism; levothyroxin 88 MCG daily DVT prophylaxis; SCDs/subcu heparin CODE STATUS; full code
--- NOTE | 2022-07-19 12:00 | P.PN ---
Subjective Progress Note Date: 07/18/22 07/18/2022: Patient was seen for a follow-up. Patient's son was also present today. He mentions that patient took 30 tablets of Seroquel. Half of them were Seroquel SR 400 mg and a half of them were Seroquel SR 300 mg. He mentions that patient has previous history of 3 suicide attempts in the past. She has bipolar disorder. He mentions that once patient is stabilized, he would like her to go to a psych unit in [facility]. Patient is present is asleep. Per nursing report, she is much improved, fully alert and awake when she is awake. She is fully oriented. 07/17/2022: Patient initially seen by Dr. Brendon Judd. Please refer to Dr. Judd's note for detail. Patient is a 77-year-old female with serotonin toxicity that was intentional due to overdose on Seroquel. Patient has previous history of suicidal attempts as well. Patient had 1 witnessed seizure and has body tremors. Patient was started on Keppra [address] a day[address] Dr. Judd felt patient probably has serotonin syndrome. He recommended continue hydration. EEG revealed moderate encephalopathy. No epileptiform activity was seen. MRI brain recommended if not improved. Psych is also following. Per nursing report, patient is much more alert and awake, but hallucinates. She is awake, talking, knows the year, hallucinates, sometimes talks to her dog or sees a [place]ese, thinks that she is in [facility] [place]. Also on IV fluids. Objective - Vital Signs Vital signs: Vital Signs Temp 97.9 F 07/18/22 16:00 Pulse 78 07/18/22 16:00 Resp 16 07/18/22 16:00 BP 155/91 07/18/22 16:00 Pulse Ox 97 07/18/22 16:00 FiO2 100 07/16/22 19:00 Intake & Output 07/17/22 07/18/22 07/18/22 18:59 06:59 18:59 Intake Total 1950 1425 1520 Output Total 733 807 680 Balance 1217 618 840 Weight 67.1 kg Intake: IV 1650 1425 760 Piperacillin-Tazobactam 3 200 125 200 .375 gm In Sodium Chloride 0.9% 100 ml @ 25 mls/hr IVPB Q8HR [facility] Rx# :[id number] Potassium Chloride 10 meq 300 In Water For Injection 1 100ml.bag @ 100 mls/hr IVPB Q1HR [facility] Rx#: [id number] Sodium Chloride 0.9% 1, 1050 1200 360 000 ml @ 20 mls/hr IV . Q24H [facility] Rx#:[id number] levETIRAcetam IV 500 mg 100 100 200 In Sodium Chloride 0.9% 100 ml @ 400 mls/hr IVPB Q12HR [facility] Rx#:[id number] Intake, IV Titration 400 Amount Potassium Chloride 10 meq 400 In Water For Injection 1 100ml.bag @ 100 mls/hr IVPB Q1HR [facility] Rx#: [id number] Oral 300 360 Output: Urine 733 807 680 Other: Voiding Method Indwelling Catheter Indwelling Catheter Indwelling Catheter # Bowel Movements 0 - Exam 07/18/2022: Patient asleep at this time. Per nurse report, she does respond very well, and follows directions. Encephalopathy seems to have mostly resolved. 07/17/2022: Patient is alert and awake, appears slightly encephalopathic. Slightly delirious. She knows that she is in [facility], knows her name, knows her 's name.l 4 activities equally. She mumbles. No obvious aphasia. Mouth is dry. Pupils are equal, round and reacting, patient blinks to visual threat. Face is symmetric. Her senior test analyst is equal, moves all 4 limbs equally. Reflexes are 2+ in the arms, 2+ at the knees, 1+ ankles and plantars are possibly upgoing. Sensations appears equal. Tone is equal. - Labs CBC & Chem 7: 07/18/22 06:43 07/19/22 03:49 Labs: Abnormal Lab Results - Last 24 Hours (Table) 07/18/22 07/18/22 07/18/22 Range/Units 06:43 06:43 06:43 RBC 3.75 L (3.80-5.40) m/uL Hgb 10.7 L (11.4-16.0) gm/dL Hct 33.4 L (34.0-46.0) % Lymphocytes # 0.4 L (1.0-4.8) k/uL Chloride 113 H (98-107) mmol/L Carbon Dioxide 21 L (22-30) mmol/L Calcium 7.9 L (8.4-10.2) mg/dL Creatine Kinase 470 H (30-135) U/L Assessment and Plan Assessment: Toxic encephalopathy (intentional overdose of Seroquel) New onset seizure (witnessed one seizure by ED team) provoked due to medication effect (toxic dose of seroquel)/possible serotonin syndrome Continuous body jerks/tremors: either seizure or extraprymidal symptoms from toxic effect of seroquel/serotonin syndrome, now resolved. Suicidal attempt Chronic bipolar depression Possible aspiration pneumonia Acute hypoxic respiratory failure. Plan: EEG revealed moderate encephalopathy. No epileptiform activity was seen. Because of concern for seizures since the patient continues to have these body jerks, Dr. Judd started the patient on Keppra with a loading dose of 1 g and the maintenance of 500 mg every 12 hours. Would suggest weaning off Keppra, once mentation normalizes. Placed on seizure precautions seizure pads CK level further improving 410 and myoglobin level 3247 (<=58). CT head 07/15/2022 revealed cerebral atrophy and no acute intracranial abnormality. Recommend IV fluids. Dr. Judd placed her on Ativan 0.5mg every Q4 hrs as needed (not large dose since causes respiratory depression/worsening hypoxia) Psychiatry and board. Neurologically clear for transfer to psychiatry unit. Discussed with patient's son and patient's nursing detail.
--- NOTE | 2022-07-19 12:42 | P.PN ---
Subjective Progress Note Date: 07/19/22 Principal diagnosis: intentional drug overdose with Seroquel This is a 77-year-old female patient with known history of bipolar depression, who presented emergency department yesterday after overdosing on a large quantity of Seroquel tablets. Based on calculation, the patient has significant total of 10,400 mg of Seroquel all at once. This was an intentional overdose. She took the pills and she immediately regretted and contacted her went to bring her to the emergency department. In the emergency, was not given a gastric lavage. I'm not certain if the patient was given activated charcoal also. Nevertheless, she was 100 stable. She did not have an EKG changes and her EKG was essentially within normal limits. Her mental status was normal when she arrived to the emergency department. Her vitals are all stable. It's she had a temperature of 98 with a pulse of 51 and respiration of 16 and a blood pressure of 117/69 with a pulse ox of 96% on room air oxygen. Her blood work showed a number of his account of 3.5 with a hemoglobin of 13.1 and a platelet count of 199. Sodium is at 134 with a potassium level of 3.7 BUN is at 10 with a creatinine of 0.6 and a glucose was 183. As the patient was in the emergency department, she was given a CAT scan of the brain that showed no acute abnormalities. Subsequently, around midnight, the patient had a generalized seizure. The seizure lasted for a total of 2 minutes and the patient was given a total of 2 mg of Ativan IV. Following that, the patient became progressively hypoxic. There is a possibility that the patient aspirated as the patient had some emesis post seizure activity. She had onle 1 seizure episode. At that point, she was placed on 100% nonrebreather facemask to bring a saturation above 90%. I was contacted and the patient got moved to the intensive care unit.. At this point in time, the patient withdraws to sternal rub and painful stimulation. She is not following commands. She is significantly obtunded, possibly postictal. No jerky body movements. No body stiffness. No tonic or clonic activity. No fever. No neck stiffness. No trauma. She remains hemodynamically stable and the most recent blood pressure is 105/85. A chest x- ray was done and showed bilateral infiltrates could be related to aspiration pneumonia/ARDS/noncardiogenic pulmonary edema. Repeat EKG will be done. Based on the cardiac rhythm on the monitor, no significant abnormalities are noted. Neurologic has been involved. Most recent QTC is at 330 milliseconds. Reevaluated today on 07/17/2022, patient is definitely more awake today, seems to be a bit slow, but arousable, follows simple instructions, and not in any distress. Remains on 6 L nasal cannula, IV fluid at 0.9 normal saline Septra 100 mL per hour today. Chest x-ray continues to show left lower lobe infiltrate. Last seizure was on 07/16. Continues to have elevated CPK nonetheless seems to be trending down. Overall the patient is better, hemodynamically stable, remains on antibiotics for presumptive aspiration pneumonia. WBC count is 9.3 and electrolytes are normal renal profile is normal CPK is 1419. Reevaluated today on 07/18/2022, patient remains in the ICU, continues to steadily improve, remained generally weak, CPK is down to 470, steadily improving. It was 1419 yesterday. Patient is on nasal cannula at 5 L, her IV fluid is at 20 mL/h, she has a sitter at bedside, and overall she is doing well, recovering nicely. Plan is to transfer the patient to regular medical floor today, and eventually decide whether the patient needs inpatient psychiatric evaluation. That will be decided upon later. In the meantime I plan to schedule the patient out of the ICU, physical therapy to evaluate, and psychiatry to follow. In the meantime the patient will remain on suicidal precautions. CBC is unremarkable, electrodes are normal renal profile is normal CPK is 470. Reevaluated today on 07/19/2022, patient remains in the ICU, she is basically an overflow, she could potentially go to a medical surgical floor or to the psychiatric floor. She is on room air, she does not have any infusions, patient is practically stable for transfer either to psychiatry or to medical surgical floor. Continues to have a bedside sitter, patient remains on suicidal precautions. Objective - Vital Signs Vital signs: Vital Signs Temp 98.5 F 07/19/22 09:57 Pulse 90 07/19/22 09:57 Resp 14 07/19/22 09:57 BP 149/102 07/19/22 09:57 Pulse Ox 97 07/19/22 09:57 FiO2 100 07/16/22 19:00 Intake & Output 07/18/22 07/19/22 07/19/22 18:59 06:59 18:59 Intake Total 1540 660 200 Output Total 860 855 250 Balance 680 -195 -50 Weight 66.5 kg Intake: IV 780 660 200 Piperacillin-Tazobactam 3 200 400 100 .375 gm In Sodium Chloride 0.9% 100 ml @ 25 mls/hr IVPB Q8HR [facility] Rx# :[id number] Sodium Chloride 0.9% 1, 380 260 000 ml @ 20 mls/hr IV . Q24H [facility] Rx#:[id number] levETIRAcetam IV 500 mg 200 100 In Sodium Chloride 0.9% 100 ml @ 400 mls/hr IVPB Q12HR [facility] Rx#:[id number] Intake, IV Titration 400 Amount Potassium Chloride 10 meq 400 In Water For Injection 1 100ml.bag @ 100 mls/hr IVPB Q1HR [facility] Rx#: [id number] Oral 360 Output: Urine 860 855 250 Other: Voiding Method Indwelling Catheter Indwelling Catheter Indwelling Catheter - Exam Physical Exam: Revealed 77-year-old female in no distress, on room air Head: Atraumatic, normocephalic. HEENT:[Neck is supple.] [No neck masses.] [No thyromegaly.] [No JVD.] Chest: [Fine crackles at the left base otherwise unremarkable. Cardiac Exam: [Normal S1 and S2, no S3 gallop, no murmur.] Abdomen: [Soft, nontender, no megaly, no rebound, no guarding, normal bowel sounds.] Extremities: [No clubbing, no edema, no cyanosis.] Neurological Exam: Steady improvement in her overall neurological status, alert oriented 3, patient is generally weak Psychiatric: Normal mood, flat affect, relatively normal mental status. Skin: No rashes - Labs CBC & Chem 7: 07/18/22 06:43 07/19/22 03:49 Labs: Abnormal Lab Results - Last 24 Hours (Table) 07/16/22 07/19/22 Range/Units 06:16 03:49 Sodium 134 L (137-145) mmol/L Potassium 3.4 L (3.5-5.1) mmol/L Chloride 111 H (98-107) mmol/L Creatinine 0.49 L (0.52-1.04) mg/dL Glucose 126 H (74-99) mg/dL Calcium 8.2 L (8.4-10.2) mg/dL Myoglobin 3247 H (<=58) ng/mL Assessment and Plan Assessment: Impression: Acute intentional drug overdose with Seroquel Acute seizure activity, likely drug induced, responded to Ativan. History of underlying bronchial asthma presently under control. Acute hypoxic respiratory failure secondary to aspiration pneumonia, Chronic bipolar disorder Benign essential hypertension Recommendation: Continue antibiotics/Zosyn for presumptive aspiration pneumonia, will eventually recommend Augmentin to replace Zosyn. Continue to monitor for any seizure activity. Continue Keppra. Continue GI and DVT prophylaxis Continue suicidal precautions Continue IV fluid and monitor CPK. Monitor renal profile. Both are improving. Likely transferred out of the ICU today Will follow. Time with Patient: Less than 30
[2022-07-19] MEDS: ACETAMINOPHEN TAB 325 MG TAB PO PRN (18:04)
[2022-07-19] MEDS: LORazepam 2 MG/ML INJ IV PRN (21:25)
--- NOTE | 2022-07-19 22:50 | P.PN ---
Subjective Progress Note Date: 07/19/22 07/19/2022: Patient was seen for a follow-up. Patient is sitting in the recliner, having her dinner. Patient denies any headache. Patient admits to taking a bunch of Seroquel tablets, as she was not able to sleep. Patient denies any focal symptoms. Offers no complaints. 07/18/2022: Patient was seen for a follow-up. Patient's son was also present today. He mentions that patient took 30 tablets of Seroquel. Half of them were Seroquel SR 400 mg and a half of them were Seroquel SR 300 mg. He mentions that patient has previous history of 3 suicide attempts in the past. She has bipolar disorder. He mentions that once patient is stabilized, he would like her to go to a psych unit in [facility]. Patient is present is asleep. Per nursing report, she is much improved, fully alert and awake when she is awake. She is fully oriented. 07/17/2022: Patient initially seen by Dr. Brendon Judd. Please refer to Dr. Judd's note for detail. Patient is a 77-year-old female with serotonin toxicity that was intentional due to overdose on Seroquel. Patient has previous history of suicidal attempts as well. Patient had 1 witnessed seizure and has body tremors. Patient was started on Keppra [address] mg [address] day[address]. Judd felt patient probably has serotonin syndrome. He recommended continue hydration. EEG revealed moderate encephalopathy. No epileptiform activity was seen. MRI brain recommended if not improved. Psych is also following. Per nursing report, patient is much more alert and awake, but hallucinates. She is awake, talking, knows the year, hallucinates, sometimes talks to her dog or sees a Ethiopian, thinks that she is in [facility] [place]. Also on IV fluids. Objective - Vital Signs Vital signs: Vital Signs Temp 98.4 F 07/19/22 20:00 Pulse 76 07/19/22 20:00 Resp 16 07/19/22 20:00 BP 153/111 07/19/22 20:00 Pulse Ox 96 07/19/22 20:00 FiO2 100 07/16/22 19:00 Intake & Output 07/19/22 07/19/22 07/20/22 06:59 18:59 06:59 Intake Total 660 300 Output Total 855 250 Balance -195 50 Weight 66.5 kg Intake: IV 660 300 Piperacillin-Tazobactam 3 400 200 .375 gm In Sodium Chloride 0.9% 100 ml @ 25 mls/hr IVPB Q8HR [facility] Rx# :[id number] Sodium Chloride 0.9% 1, 260 000 ml @ 20 mls/hr IV . Q24H [facility] Rx#:[id number] levETIRAcetam IV 500 mg 100 In Sodium Chloride 0.9% 100 ml @ 400 mls/hr IVPB Q12HR [facility] Rx#:[id number] Output: Urine 855 250 Other: Voiding Method Indwelling Catheter Indwelling Catheter External Catheter # Voids 0 - Exam Patient is alert and awake, fully oriented. She knows it is July 2022 and that she is in [facility] in [facility]. No aphasia or dysarthria. Pupils are equal, round and reacting, visual wiggins are full. Face is symmetric. Strength is normal. Sensations appears equal. Tone is equal. - Labs CBC & Chem 7: 07/18/22 06:43 07/19/22 03:49 Labs: Abnormal Lab Results - Last 24 Hours (Table) 07/16/22 07/19/22 Range/Units 06:16 03:49 Sodium 134 L (137-145) mmol/L Potassium 3.4 L (3.5-5.1) mmol/L Chloride 111 H (98-107) mmol/L Creatinine 0.49 L (0.52-1.04) mg/dL Glucose 126 H (74-99) mg/dL Calcium 8.2 L (8.4-10.2) mg/dL Myoglobin 3247 H (<=58) ng/mL Assessment and Plan Assessment: Toxic encephalopathy (intentional overdose of Seroquel) New onset seizure (witnessed one seizure by ED team) provoked due to medication effect (toxic dose of seroquel)/possible serotonin syndrome Continuous body jerks/tremors: Probably due to metabolic encephalopathy, now resolved. Suicidal attempt Chronic bipolar depression Possible aspiration pneumonia Acute hypoxic respiratory failure. Plan: EEG revealed moderate encephalopathy. No epileptiform activity was seen. Because of concern for seizures since the patient continues to have these body jerks, Dr. Judd started the patient on Keppra with a loading dose of 1 g and the maintenance of 500 mg every 12 hours. Decrease Keppra to 500 mg once daily for 2 days and then stop. Placed on seizure precautions seizure pads CK level further improving 410 and myoglobin level 3247 (<=58). CT head 07/15/2022 revealed cerebral atrophy and no acute intracranial abnormality. Recommend IV fluids. Dr. Judd placed her on Ativan 0.5mg every Q4 hrs as needed (not large dose since causes respiratory depression/worsening hypoxia) Psychiatry and board. Neurologically clear for transfer to psychiatry unit. Discussed with nurse in detail.
[2022-07-20] MEDS: SODIUM CHLORIDE 0.9% 1,000 ML IV SCH (04:49)
[2022-07-20 06:28] LABS: Basophils % (A) 0 %; Eosinophils # (A) 0.1 k/uL (0-0.7); Eosinophils % (A) 2 %; HCT 37.1 % (34.0-46.0); HGB 12.7 gm/dL (11.4-16.0); Lymphocytes # (A) 0.8 k/uL (1.0-4.8); Lymphocytes % (A) 15 %; MCH 29.2 pg (25.0-35.0); MCHC 34.2 g/dL (31.0-37.0); MCV 85.3 fL (80.0-100.0); Mean Platelet Volume 8.3; Monocytes # (A) 0.3 k/uL (0-1.0); Monocytes % (A) 5 %; Neutrophils # (A) 4.1 k/uL (1.3-7.7); Neutrophils % (A) 77 %; Platelet Count 212 k/uL (150-450); RBC 4.35 m/uL (3.80-5.40); RDW 12.6 % (11.5-15.5); WBC 5.3 k/uL (3.8-10.6)
[2022-07-20 06:53] LABS: African American GFR (CKD) >90 (>60 ml/min/1.73 sqM); Anion Gap 4 mmol/L; Blood Urea Nitrogen 8 mg/dL (7-17); Calcium 8.4 mg/dL (8.4-10.2); Carbon Dioxide 27 mmol/L (22-30); Chloride 107 mmol/L (98-107); Glucose 99 mg/dL (74-99); Non-African American GFR(CKD) >90 (>60 ml/min/1.73 sqM); Potassium 3.3 mmol/L (3.5-5.1); Sodium 138 mmol/L (137-145)
[2022-07-20] MEDS ORDERED: Potassium Replacement Protocol 1 EACH MISC MISCELLANE PRN ×2 (07:02→07:06)
[2022-07-20] MEDS: PIPERACILLIN-TAZOBACTAM 3.375 GM in SODIUM CHLORIDE 0.9% 100 ML IVPB SCH (08:24)
[2022-07-20] MEDS: HEPARIN SODIUM,PORCINE/PF 5,000 UNIT/0.5 ML SYRINGE SQ SCH ×2 (08:25→15:55)
[2022-07-20] MEDS: PANTOPRAZOLE 40 MG/10 ML VIAL IVP SCH (08:25)
[2022-07-20] MEDS: levETIRAcetam 500 MG TAB PO SCH (08:25)
[2022-07-20] MEDS: POTASSIUM CHLORIDE ER 20 MEQ TAB.ER PO SCH ×2 (08:25→13:35)
[2022-07-20] MEDS: LEVOTHYROXINE IVP 100 MCG/5 ML VIAL IV SCH (08:26)
--- NOTE | 2022-07-20 10:14 | P.PN ---
Subjective From records 77-year-old female presents emergency department after having taking 30 of Seroquel and they were long-acting. Patient stated she had the thought of committing suicide and she took the pills and then immediately regretted it and told her . Patient took the pills around 8:00 in the morning. Patient states she's not thinking clearly right now. Patient denies any headache patient denies any numbness or weakness. Patient denies any chest pain difficulty breathing or shortness of breath patient denies any palpitations. Vick osei denies abdominal pain patient denies any nausea vomiting. states that the patient has been depressive states since before Thanksgiving she's been previously diagnosed with bipolar Upon arrival to ED patient had a temperature of 98, pulse of 51 and respiration of 16 and a blood pressure of 117/69 with a pulse ox of 96% on room air oxygen. Blood work reveals WBC of 3.5 with a hemoglobin of 13.1 and a platelet count of 199. Sodium is at 134 with a potassium level of 3.7 BUN is at 10 with a creatinine of 0.6 and a glucose was 183. --CAT scan of the brain that showed no acute abnormalities. EKG reveals sinus tachycardia with frequent supraventricular premature complexes -Controlled was consulted and recommended patient on telemetry given increased risk of QTC prolongation and arrhythmias Last night patient had episode of seizure activity which lasted about 2 minutes; generalized seizure which aborted when patient was given 2 mg of IV Ativan; patient is transferred to ICU Urine tox screen is positive for tricyclic antidepressant otherwise rest is nondetected. Salsalate is less than now 1, Sinemet and less than 10 and serum alcohol was less than 10. CT of the head is reported as cerebral atrophy and no acute intracranial abnormality. No change compared to old exam Placed on seizure precautions seizure pads --CK level and myoglobin level Consider MRI of the brain if patient continues to be encephalopathic. Recommend IV fluids. --Ativan 0.5mg every Q4 hrs as needed 07/17/2022 Patient remains in the ICU, she is awake, follows simple commands but she mumbles, probably she still confused. Sitter at bedside. No restraints but Hitchcock catheter in a Place She nausea and the hospital but she is disoriented to time or person Patient currently breathing quietly, oxygen saturation is 97% on 6 L oxygen Creatinine kinase trending down. Hemoglobin 11. Patient developed by several consultants, including psychiatrist, patient does not have capacity to make decision. She is currently on Zosyn for aspiration pneumonia and Keppra. No more seizure- like activity 07/18/2022 Patient still confused but she is improving, she knows she isn't particularly on hospital but she is disoriented to time and person. However she has somewhat insight into her illness, she knows she took extra pills on Seroquel She denies any headache or new weakness or numbness Patient is hemodynamically stable. Hemoglobin 10 Creatinine kinase trending down, 470 today. She is on 6 L the morning saturating 97% Remains on Zosyn 07/19/2022 Patient is back to her basic mental status, she denies any specific symptoms today. General she is in the hospital and she knows the date and oriented to person and she has insight into her illness. Vitals stable. BMP is unremarkable. Neurology already signed off. I discussed the case with pulmonary/critical care team and they cleared her for discharge today. Patient is medically stable pending placement. Psychiatric recommended geriatric psychiatric unit, social security benefits interviewer on the case, patient is medically stable for discharge pending placement Also we'll monitor her hemoglobin 07/20/2022 Patient back to her normal self, fully awake and oriented, mildly lethargic, no new complaint Vitals are stable, labs are stable and low potassium replaced. Patient currently on Augmentin Patient is medically stable for transfer to geriatric psych unit pending placement, no place for today per case repairer Discussed with staff to check a bladder scan Objective - Vital Signs Vital signs: Vital Signs Temp 97.9 F 07/20/22 08:00 Pulse 89 07/20/22 08:00 Resp 20 07/20/22 08:00 BP 159/105 07/20/22 08:00 Pulse Ox 97 07/20/22 08:00 FiO2 100 07/16/22 19:00 Intake & Output 07/19/22 07/20/22 07/20/22 18:59 06:59 18:59 Intake Total 300 Output Total 250 450 Balance 50 -450 Weight 64 kg Intake: IV 300 Piperacillin-Tazobactam 3 200 .375 gm In Sodium Chloride 0.9% 100 ml @ 25 mls/hr IVPB Q8HR [facility] Rx# :[id number] levETIRAcetam IV 500 mg 100 In Sodium Chloride 0.9% 100 ml @ 400 mls/hr IVPB Q12HR [facility] Rx#:[id number] Output: Urine 250 450 Other: Voiding Method Indwelling Catheter External Catheter # Voids 0 - Exam -GENERAL: The patient is alert and oriented x1 to place only, confused, not in any acute distress. Well developed, well nourished. HEENT: Pupils are round and equally reacting to light. EOMI. No scleral icterus. No conjunctival pallor. Normocephalic, atraumatic. No pharyngeal erythema. No thyromegaly. CARDIOVASCULAR: S1 and S2 present. No murmurs, rubs, or gallops. PULMONARY: Chest is clear to auscultation, no wheezing or crackles. ABDOMEN: Soft, nontender, nondistended, normoactive bowel sounds. No palpable organomegaly. MUSCULOSKELETAL: No joint swelling or deformity. EXTREMITIES: No cyanosis, clubbing, or pedal edema. NEUROLOGICAL: Gross neurological examination did not reveal any focal deficits. SKIN: No rashes. no petechiae. - Labs CBC & Chem 7: 07/20/22 06:13 07/20/22 06:13 Labs: Abnormal Lab Results - Last 24 Hours (Table) 07/20/22 07/20/22 Range/Units 06:13 06:13 Lymphocytes # 0.8 L (1.0-4.8) k/uL Potassium 3.3 L (3.5-5.1) mmol/L Creatinine 0.47 L (0.52-1.04) mg/dL Assessment and Plan Assessment: 1. Intentional Seroquel overdose with suicidal attempt - Patient reports overdose with 30 extended-release Seroquel tablets; patient immediately regretted taking medication and told her and patient was brought to ED; patient was not given gastric lavage given history of bariatric surgery - Patient is hemodynamically stable for transfer to geriatric psych unit once bed available. 2. Altered mental status;secondary to metabolic and toxic encephalopathy related to Seroquel overdose, With acute seizure disorder, Possible serotonin syndrome - Started on Keppra , Patient informed - Zaheer junior neurologist cleared her for discharge and there are signs of the case as per staff 3. Aspiration pneumonia with acute hypoxic respiratory failure: Continue with Augmentin and aspiration precaution, she tolerates diet well. The pulmonary team on the case and they cleared patient for discharge 4. Asthma; not in exacerbation; albuterol inhaler 2 puffs 4 times a day when necessary, Advair HFA 2 puffs twice a day, Singulair 10 mg daily at bedtime 5. Hyperlipidemia; patient takes pravastatin 20 mg by mouth daily at bedtime 6. Hypertension; Norvasc 10 mg daily, lisinopril 10 mg twice a day 7. Hypothyroidism; levothyroxin 88 MCG daily DVT prophylaxis; SCDs/subcu heparin CODE STATUS; full code
[2022-07-20 12:13] VITALS: BMI 26.6
--- NOTE | 2022-07-20 12:16 | P.PN ---
Subjective Progress Note Date: 07/20/22 Principal diagnosis: intentional drug overdose with Seroquel This is a 77-year-old female patient with known history of bipolar depression, who presented emergency department yesterday after overdosing on a large quantity of Seroquel tablets. Based on calculation, the patient has significant total of 10,400 mg of Seroquel all at once. This was an intentional overdose. She took the pills and she immediately regretted and contacted her went to bring her to the emergency department. In the emergency, was not given a gastric lavage. I'm not certain if the patient was given activated charcoal also. Nevertheless, she was 100 stable. She did not have an EKG changes and her EKG was essentially within normal limits. Her mental status was normal when she arrived to the emergency department. Her vitals are all stable. It's she had a temperature of 98 with a pulse of 51 and respiration of 16 and a blood pressure of 117/69 with a pulse ox of 96% on room air oxygen. Her blood work showed a number of his account of 3.5 with a hemoglobin of 13.1 and a platelet count of 199. Sodium is at 134 with a potassium level of 3.7 BUN is at 10 with a creatinine of 0.6 and a glucose was 183. As the patient was in the emergency department, she was given a CAT scan of the brain that showed no acute abnormalities. Subsequently, around midnight, the patient had a generalized seizure. The seizure lasted for a total of 2 minutes and the patient was given a total of 2 mg of Ativan IV. Following that, the patient became progressively hypoxic. There is a possibility that the patient aspirated as the patient had some emesis post seizure activity. She had onle 1 seizure episode. At that point, she was placed on 100% nonrebreather facemask to bring a saturation above 90%. I was contacted and the patient got moved to the intensive care unit.. At this point in time, the patient withdraws to sternal rub and painful stimulation. She is not following commands. She is significantly obtunded, possibly postictal. No jerky body movements. No body stiffness. No tonic or clonic activity. No fever. No neck stiffness. No trauma. She remains hemodynamically stable and the most recent blood pressure is 105/85. A chest x- ray was done and showed bilateral infiltrates could be related to aspiration pneumonia/ARDS/noncardiogenic pulmonary edema. Repeat EKG will be done. Based on the cardiac rhythm on the monitor, no significant abnormalities are noted. Neurologic has been involved. Most recent QTC is at 330 milliseconds. Reevaluated today on 07/17/2022, patient is definitely more awake today, seems to be a bit slow, but arousable, follows simple instructions, and not in any distress. Remains on 6 L nasal cannula, IV fluid at 0.9 normal saline Septra 100 mL per hour today. Chest x-ray continues to show left lower lobe infiltrate. Last seizure was on 07/16. Continues to have elevated CPK nonetheless seems to be trending down. Overall the patient is better, hemodynamically stable, remains on antibiotics for presumptive aspiration pneumonia. WBC count is 9.3 and electrolytes are normal renal profile is normal CPK is 1419. Reevaluated today on 07/18/2022, patient remains in the ICU, continues to steadily improve, remained generally weak, CPK is down to 470, steadily improving. It was 1419 yesterday. Patient is on nasal cannula at 5 L, her IV fluid is at 20 mL/h, she has a sitter at bedside, and overall she is doing well, recovering nicely. Plan is to transfer the patient to regular medical floor today, and eventually decide whether the patient needs inpatient psychiatric evaluation. That will be decided upon later. In the meantime I plan to schedule the patient out of the ICU, physical therapy to evaluate, and psychiatry to follow. In the meantime the patient will remain on suicidal precautions. CBC is unremarkable, electrodes are normal renal profile is normal CPK is 470. Reevaluated today on 07/19/2022, patient remains in the ICU, she is basically an overflow, she could potentially go to a medical surgical floor or to the psychiatric floor. She is on room air, she does not have any infusions, patient is practically stable for transfer either to psychiatry or to medical surgical floor. Continues to have a bedside sitter, patient remains on suicidal precautions. Reevaluated today on 07/20/22, patient remains in the ICU as an overflow, doing quite well, waiting for a medical surgical bed or psychiatric bed to transfer the patient out of the ICU.CBC today is normal basic metabolic profile is normal renal profile is normal Objective - Vital Signs Vital signs: Vital Signs Temp 97.9 F 07/20/22 08:00 Pulse 89 07/20/22 08:00 Resp 20 07/20/22 08:00 BP 159/105 07/20/22 08:00 Pulse Ox 97 07/20/22 08:00 FiO2 100 07/16/22 19:00 Intake & Output 07/19/22 07/20/22 07/20/22 18:59 06:59 18:59 Intake Total 300 Output Total 250 450 Balance 50 -450 Weight 64 kg 64 kg Intake: IV 300 Piperacillin-Tazobactam 3 200 .375 gm In Sodium Chloride 0.9% 100 ml @ 25 mls/hr IVPB Q8HR [facility] Rx# :[id number] levETIRAcetam IV 500 mg 100 In Sodium Chloride 0.9% 100 ml @ 400 mls/hr IVPB Q12HR [facility] Rx#:[id number] Output: Urine 250 450 Other: Voiding Method Indwelling Catheter External Catheter # Voids 0 - Exam Physical Exam: Revealed 77-year-old female in no distress, on room air Head: Atraumatic, normocephalic. HEENT:[Neck is supple.] [No neck masses.] [No thyromegaly.] [No JVD.] Chest: [Fine crackles at the left base otherwise unremarkable. Cardiac Exam: [Normal S1 and S2, no S3 gallop, no murmur.] Abdomen: [Soft, nontender, no megaly, no rebound, no guarding, normal bowel sounds.] Extremities: [No clubbing, no edema, no cyanosis.] Neurological Exam:alert oriented 3 no focal deficit Psychiatric: Normal mood, flat affect, relatively normal mental status. Skin: No rashes - Labs CBC & Chem 7: 07/20/22 06:13 07/20/22 06:13 Labs: Abnormal Lab Results - Last 24 Hours (Table) 07/20/22 07/20/22 Range/Units 06:13 06:13 Lymphocytes # 0.8 L (1.0-4.8) k/uL Potassium 3.3 L (3.5-5.1) mmol/L Creatinine 0.47 L (0.52-1.04) mg/dL Assessment and Plan Assessment: Impression: Acute intentional drug overdose with Seroquel Acute seizure activity, likely drug induced, responded to Ativan. History of underlying bronchial asthma presently under control. Acute hypoxic respiratory failure secondary to aspiration pneumonia, Chronic bipolar disorder Benign essential hypertension Recommendation: change Zosyn to oral Augmentin. Continue to monitor for any seizure activity. Continue Keppra. Continue GI and DVT prophylaxis Continue suicidal precautions transfer out of the ICU once another bed is available. Will follow. Time with Patient: Less than 30
[2022-07-20] MEDS: ACETAMINOPHEN TAB 325 MG TAB PO PRN ×2 (12:38→22:41)
[2022-07-20] MEDS: AMOXIC-POT CLAV 875-125MG 1 EACH TAB PO SCH ×2 (13:35→21:44)
[2022-07-20] MEDS: amLODIPine 10 MG TAB PO SCH (15:55)
[2022-07-20] MEDS: LORazepam 2 MG/ML INJ IV PRN (18:33)
[2022-07-21] MEDS: HEPARIN SODIUM,PORCINE/PF 5,000 UNIT/0.5 ML SYRINGE SQ SCH ×3 (00:36→16:17)
[2022-07-21] MEDS: PANTOPRAZOLE 40 MG TABLET PO SCH (06:59)
[2022-07-21] MEDS: SODIUM CHLORIDE 0.9% 1,000 ML IV SCH (07:00)
[2022-07-21] MEDS: levETIRAcetam 500 MG TAB PO SCH (08:30)
[2022-07-21] MEDS: amLODIPine 10 MG TAB PO SCH (08:31)
[2022-07-21] MEDS: ACETAMINOPHEN TAB 325 MG TAB PO PRN ×3 (09:24→20:23)
[2022-07-21] MEDS: AMOXIC-POT CLAV 875-125MG 1 EACH TAB PO SCH ×2 (09:25→20:17)
--- NOTE | 2022-07-21 10:09 | P.PN ---
Subjective Progress Note Date: 07/20/22 07/20/2022: Patient was seen for a follow-up. Patient states that she had a headache earlier, but resolved with Tylenol. No seizures. Awaiting transfer to psych unit. 07/19/2022: Patient was seen for a follow-up. Patient is sitting in the recliner, having her dinner. Patient denies any headache. Patient admits to taking a bunch of Seroquel tablets, as she was not able to sleep. Patient denies any focal symptoms. Offers no complaints. 07/18/2022: Patient was seen for a follow-up. Patient's son was also present today. He mentions that patient took 30 tablets of Seroquel. Half of them were Seroquel SR 400 mg and a half of them were Seroquel SR 300 mg. He mentions that patient has previous history of 3 suicide attempts in the past. She has bipolar disorder. He mentions that once patient is stabilized, he would like her to go to a psych unit in [facility]. Patient is present is asleep. Per nursing report, she is much improved, fully alert and awake when she is awake. She is fully oriented. 07/17/2022: Patient initially seen by Dr. Brendon Judd. Please refer to Dr. Judd's note for detail. Patient is a 77-year-old female with serotonin toxicity that was intentional due to overdose on Seroquel. Patient has previous history of suicidal attempts as well. Patient had 1 witnessed seizure and has body tremors. Patient was started on Keppra [address] Judd felt patient probably has serotonin syndrome. He recommended continue hydration. EEG revealed moderate encephalopathy. No epileptiform activity was seen. MRI brain recommended if not improved. Psych is also following. Per nursing report, patient is much more alert and awake, but hallucinates. She is awake, talking, knows the year, hallucinates, sometimes talks to her dog or sees a [place], thinks that she is in psych [facility]. Also on IV fluids. Objective - Vital Signs Vital signs: Vital Signs Temp 97.8 F 07/20/22 14:00 Pulse 89 07/20/22 08:00 Resp 16 07/20/22 14:00 BP 172/115 07/20/22 14:00 Pulse Ox 94 L 07/20/22 14:00 FiO2 100 07/16/22 19:00 Intake & Output 07/19/22 07/20/22 07/20/22 18:59 06:59 18:59 Intake Total 300 Output Total 250 450 Balance 50 -450 Weight 64 kg 64 kg Intake: IV 300 Piperacillin-Tazobactam 3 200 .375 gm In Sodium Chloride 0.9% 100 ml @ 25 mls/hr IVPB Q8HR [facility] Rx# :[id number] levETIRAcetam IV 500 mg 100 In Sodium Chloride 0.9% 100 ml @ 400 mls/hr IVPB Q12HR [facility] Rx#:[id number] Output: Urine 250 450 Other: Voiding Method Indwelling Catheter External Catheter Toilet # Voids 0 3 - Exam Patient is alert and awake, fully oriented. She knows it is July 2022 and that she is in [facility] in [facility]. No aphasia or dysarthria. Pupils are equal, round and reacting, visual wiggins are full. Face is symmetric. Strength is normal. Sensations appears equal. Tone is equal. - Labs CBC & Chem 7: 07/20/22 06:13 07/20/22 06:13 Labs: Abnormal Lab Results - Last 24 Hours (Table) 07/20/22 07/20/22 Range/Units 06:13 06:13 Lymphocytes # 0.8 L (1.0-4.8) k/uL Potassium 3.3 L (3.5-5.1) mmol/L Creatinine 0.47 L (0.52-1.04) mg/dL Assessment and Plan Assessment: Toxic encephalopathy (intentional overdose of Seroquel) New onset seizure (witnessed one seizure by ED team) provoked due to medication effect (toxic dose of seroquel)/possible serotonin syndrome Continuous body jerks/tremors: Probably due to metabolic encephalopathy, now resolved. Suicidal attempt Chronic bipolar depression Possible aspiration pneumonia Acute hypoxic respiratory failure. Plan: EEG revealed moderate encephalopathy. No epileptiform activity was seen. Because of concern for seizures since the patient continues to have these body jerks, Dr. Judd started the patient on Keppra with a loading dose of 1 g and the maintenance of 500 mg every 12 hours. Decrease Keppra to 500 mg once daily for 2 days and then stop. Patient tolerating weaning down does well. No recurrent seizure. Patient will receive last dose of Keppra tomorrow on Sunday. Placed on seizure precautions seizure pads CK level further improving 410 and myoglobin level 3247 (<=58). CT head 07/15/2022 revealed cerebral atrophy and no acute intracranial abnormali ty. Recommend IV fluids. Dr. Judd placed her on Ativan 0.5mg every Q4 hrs as needed (not large dose since causes respiratory depression/worsening hypoxia) Psychiatry and board. Neurologically clear for transfer to psychiatry unit. Discussed with nurse in detail.
--- NOTE | 2022-07-21 11:58 | P.PN ---
Subjective Progress Note Date: 07/21/22 Principal diagnosis: intentional drug overdose with Seroquel This is a 77-year-old female patient with known history of bipolar depression, who presented emergency department yesterday after overdosing on a large quantity of Seroquel tablets. Based on calculation, the patient has significant total of 10,400 mg of Seroquel all at once. This was an intentional overdose. She took the pills and she immediately regretted and contacted her went to bring her to the emergency department. In the emergency, was not given a gastric lavage. I'm not certain if the patient was given activated charcoal also. Nevertheless, she was 100 stable. She did not have an EKG changes and her EKG was essentially within normal limits. Her mental status was normal when she arrived to the emergency department. Her vitals are all stable. It's she had a temperature of 98 with a pulse of 51 and respiration of 16 and a blood pressure of 117/69 with a pulse ox of 96% on room air oxygen. Her blood work showed a number of his account of 3.5 with a hemoglobin of 13.1 and a platelet count of 199. Sodium is at 134 with a potassium level of 3.7 BUN is at 10 with a creatinine of 0.6 and a glucose was 183. As the patient was in the emergency department, she was given a CAT scan of the brain that showed no acute abnormalities. Subsequently, around midnight, the patient had a generalized seizure. The seizure lasted for a total of 2 minutes and the patient was given a total of 2 mg of Ativan IV. Following that, the patient became progressively hypoxic. There is a possibility that the patient aspirated as the patient had some emesis post seizure activity. She had onle 1 seizure episode. At that point, she was placed on 100% nonrebreather facemask to bring a saturation above 90%. I was contacted and the patient got moved to the intensive care unit.. At this point in time, the patient withdraws to sternal rub and painful stimulation. She is not following commands. She is significantly obtunded, possibly postictal. No jerky body movements. No body stiffness. No tonic or clonic activity. No fever. No neck stiffness. No trauma. She remains hemodynamically stable and the most recent blood pressure is 105/85. A chest x- ray was done and showed bilateral infiltrates could be related to aspiration pneumonia/ARDS/noncardiogenic pulmonary edema. Repeat EKG will be done. Based on the cardiac rhythm on the monitor, no significant abnormalities are noted. Neurologic has been involved. Most recent QTC is at 330 milliseconds. Reevaluated today on 07/17/2022, patient is definitely more awake today, seems to be a bit slow, but arousable, follows simple instructions, and not in any distress. Remains on 6 L nasal cannula, IV fluid at 0.9 normal saline Septra 100 mL per hour today. Chest x-ray continues to show left lower lobe infiltrate. Last seizure was on 07/16. Continues to have elevated CPK nonetheless seems to be trending down. Overall the patient is better, hemodynamically stable, remains on antibiotics for presumptive aspiration pneumonia. WBC count is 9.3 and electrolytes are normal renal profile is normal CPK is 1419. Reevaluated today on 07/18/2022, patient remains in the ICU, continues to steadily improve, remained generally weak, CPK is down to 470, steadily improving. It was 1419 yesterday. Patient is on nasal cannula at 5 L, her IV fluid is at 20 mL/h, she has a sitter at bedside, and overall she is doing well, recovering nicely. Plan is to transfer the patient to regular medical floor today, and eventually decide whether the patient needs inpatient psychiatric evaluation. That will be decided upon later. In the meantime I plan to schedule the patient out of the ICU, physical therapy to evaluate, and psychiatry to follow. In the meantime the patient will remain on suicidal precautions. CBC is unremarkable, electrodes are normal renal profile is normal CPK is 470. Reevaluated today on 07/19/2022, patient remains in the ICU, she is basically an overflow, she could potentially go to a medical surgical floor or to the psychiatric floor. She is on room air, she does not have any infusions, patient is practically stable for transfer either to psychiatry or to medical surgical floor. Continues to have a bedside sitter, patient remains on suicidal precautions. Reevaluated today on 07/20/22, patient remains in the ICU as an overflow, doing quite well, waiting for a medical surgical bed or psychiatric bed to transfer the patient out of the ICU.CBC today is normal basic metabolic profile is normal renal profile is normal Reevaluated today on 1/13/23, remains in the ICU as an overflow, patient may be considered for discharge to psychiatric unit in [place] where she used to be before. Overall the patient is doing great, and I will clear the patient for discharge to psychiatry inpatient evaluation. Objective - Vital Signs Vital signs: Vital Signs Temp 98.6 F 07/21/22 08:00 Pulse 86 07/21/22 08:00 Resp 15 07/21/22 08:00 BP 165/99 07/21/22 08:00 Pulse Ox 97 07/21/22 08:12 FiO2 100 07/16/22 19:00 Intake & Output 07/20/22 07/21/22 07/21/22 18:59 06:59 18:59 Intake Total 460 Output Total 275 Balance 460 -275 Weight 64 kg 62.2 kg Intake: IV 220 Sodium Chloride 0.9% 1, 220 000 ml @ 20 mls/hr IV . Q24H SANTINO Rx#:[id number] Oral 240 Output: Urine 275 Other: Voiding Method Toilet Toilet Toilet # Voids 3 2 - Exam Physical Exam: Revealed 77-year-old female in no distress, on room air Head: Atraumatic, normocephalic. HEENT:[Neck is supple.] [No neck masses.] [No thyromegaly.] [No JVD.] Chest: [Fine crackles at the left base otherwise unremarkable. Cardiac Exam: [Normal S1 and S2, no S3 gallop, no murmur.] Abdomen: [Soft, nontender, no megaly, no rebound, no guarding, normal bowel sounds.] Extremities: [No clubbing, no edema, no cyanosis.] Neurological Exam:alert oriented 3 no focal deficit Psychiatric: Normal mood, flat affect, relatively normal mental status. Skin: No rashes - Labs CBC & Chem 7: 07/20/22 06:13 07/20/22 06:13 Assessment and Plan Assessment: Impression: Acute intentional drug overdose with Seroquel Acute seizure activity, likely drug induced, responded to Ativan. History of underlying bronchial asthma presently under control. Acute hypoxic respiratory failure secondary to aspiration pneumonia, Chronic bipolar disorder Benign essential hypertension Recommendation: Continue Augmentin for 5 more days Continue to monitor for any seizure activity. Continue Keppra. Continue GI and DVT prophylaxis Continue suicidal precautions Cleared for transfer Time with Patient: Less than 30
[2022-07-21] MEDS: LEVOTHYROXINE 88 MCG TAB PO SCH (12:57)
--- NOTE | 2022-07-21 15:06 | P.DS ---
Providers Date of admission: 07/15/22 10:38 Attending physician: Haresh Gordon Consults: 07/15/22 23:06 Consult Physician Urgent Consulting Provider: Brendon Judd Consult Reason/Comments: NOS seizure Do you want consulting provider notified?: Yes 07/16/22 04:27 Consult Physician Urgent Consulting Provider: Telly Jimenez Consult Reason/Comments: ICU management Do you want consulting provider notified?: Already Contacted 07/16/22 10:31 Consult Physician Routine Consulting Provider: Riley Almeida Consult Reason/Comments: suicidal ideation/attempt Do you want consulting provider notified?: Yes Primary care physician: Dez [place] Hospital Course: 1. Intentional Seroquel overdose with suicidal attempt, patient to be transferred to geriatric psych unit 2. Altered mental status;secondary to metabolic and toxic encephalopathy related to Seroquel overdose, With acute seizure disorder, Possible serotonin syndrome, Resolved. Patient finished her Keppra dose and patient did for disch arge by neurologist 3. Aspiration pneumonia with acute hypoxic respiratory failure: Continue with Augmentin 5 days upon discharge, relieved by aircraft sales representative 4. Asthma; not in exacerbation; 5. Hyperlipidemia; 6. Hypertension; 7. Hypothyroidism; hospital course: 77-year-old female presents emergency department after having taking 30 of Seroquel and they were long-acting. Patient presents because of altered mental status secondary to Seroquel overdose with intention to end her life. Patient was admitted to the ICU with neurology and psychiatry service evaluation, serotonin syndrome is suspected, patient was seated with Keppra as well for possible seizure, however EEG was negative for epileptiform discharge and today is her last day Keppra, no more Keppra as needed upon discharge by neurologist who cleared her for discharge. Psychiatric recommended patient meets criteria for inpatient psych hospital, Cert signed today and patient Accepted to geriatric psych unit to be tr ansferred, licensed master social worker on the case She was treated with Zosyn for aspiration pneumonia with pulmonary were following her closely, her breathing is quiet and pneumonia significantly improved and she tolerates diet well. Patient will need short course of oral antibiotics upon discharge. Today she is awake alert oriented to time place and person, she denies any specific complaints. No chest pain or dyspnea. No abdominal pain vomiting or diarrhea, no urinary complaints. No headache weakness numbness or dizziness. Patient was cleared for discharge by all consultants Patient denies any other new symptoms. Problems and management plan were discussed with the patient and he verbalized understanding and acceptance Patient was found stable and can be discharged to geriatric psych unitin guarded prognosis however he needs follow-up as an outpatient. Patient was instructed to follow up with PCP within one week and patient agrees We recommend patient follow up with aircraft sales representative Dr. Jimenez N1 to 2 weeks and the neurologist Dr. Guzmán in 1-2 weeks and with her psychiatrist as an outpatient. However patient currently is going to be transferred to geriatric psych unit Physical exam Gen: patient is a AAOx3, no distress CVS: S1-S2, RRR, no murmur Lungs: B/L CTA, no wheezing Abdomen: soft, no distention, no tenderness, positive bowel sounds Extremity: no leg edema or induration Time spent more than 35 minutes Plan - Discharge Summary New Discharge Prescriptions: No Action lisinopriL [Zestril] 10 mg PO BID Loratadine [Claritin] 10 mg PO DAILY Montelukast Sodium [Singulair] 10 mg PO HS Albuterol Sulfate [Albuterol Sulfate Hfa] 2 puff INHALATION RT-QID PRN PRN Reason: Shortness Of Breath Levothyroxine Sodium [Synthroid] 88 mcg PO DAILY@1200 Multivit-Min/Iron/Folic/Lutein [Centrum Silver Women Tablet] 1 tab PO DAILY@1200 Omeprazole 20 mg PO DAILY Pravastatin Sodium [Pravachol] 20 mg PO HS Alendronate Sodium [Fosamax] 70 mg PO AHMADI amLODIPine [Norvasc] 10 mg PO DAILY Cholecalciferol [Vitamin D3 (25 Mcg = 1000 Iu)] 50 mcg PO Q2D@1200 Budesonide/Formoterol Fumarate [Symbicort 80-4.5 Mcg Inhaler] 2 puff INHALATION RT-BID QUEtiapine FUMARATE [SEROquel XR] 400 mg PO HS L.acidoph,Paracasei, B.lactis [Probiotic] 1 cap PO DAILY@1200 Folic Acid 0.8 mg PO DAILY@1200 Discharge Medication List lisinopriL [Zestril] 10 mg PO BID 06/20/17 [History] Albuterol Sulfate [Albuterol Sulfate Hfa] 2 puff INHALATION RT-QID PRN 03/12/20 [History] Levothyroxine Sodium [Synthroid] 88 mcg PO DAILY@1200 03/12/20 [History] Montelukast Sodium [Singulair] 10 mg PO HS 03/12/20 [History] Multivit-Min/Iron/Folic/Lutein [Centrum Silver Women Tablet] 1 tab PO DAILY@1200 03/12/20 [History] Omeprazole 20 mg PO DAILY 03/12/20 [History] Alendronate Sodium [Fosamax] 70 mg PO AHMADI 01/23/22 [History] Pravastatin Sodium [Pravachol] 20 mg PO HS 01/23/22 [History] amLODIPine [Norvasc] 10 mg PO DAILY 03/07/22 [History] Budesonide/Formoterol Fumarate [Symbicort 80-4.5 Mcg Inhaler] 2 puff INHALATION RT-BID 07/15/22 [History] Cholecalciferol [Vitamin D3 (25 Mcg = 1000 Iu)] 50 mcg PO Q2D@1200 07/15/22 [History] Folic Acid 0.8 mg PO DAILY@1200 07/15/22 [History] Acetaminophen Tab [Tylenol] 325 mg PO Q6HR PRN tab 07/21/22 [Rx] Amoxic-Pot Clav 875-125Mg [Augmentin 875-125] 1 each PO Q12HR 5 Days #10 tab 07/21/22 [Rx] Follow up Appointment(s)/Referral(s): Dez Bowen DO [Primary Care Provider] - 1-2 days Patient Instructions/Handouts: Seizure/Epilepsy Discharge Instructions & Follow-Up
--- NOTE | 2022-07-21 16:45 | P.PN ---
Subjective Progress Note Date: 07/21/22 07/21/2022: Patient is laying comfortably in the bed. 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 No seizures reported. 07/20/2022: Patient was seen for a follow-up. Patient states that she had a headache earlier, but resolved with Tylenol. No seizures. Awaiting transfer to psych unit. 07/19/2022: Patient was seen for a follow-up. Patient is sitting in the recliner, having her dinner. Patient denies any headache. Patient admits to taking a bunch of Seroquel tablets, as she was not able to sleep. Patient denies any focal symptoms. Offers no complaints. 07/18/2022: Patient was seen for a follow-up. Patient's son was also present today. He mentions that patient took 30 tablets of Seroquel. Half of them were Seroquel SR 400 mg and a half of them were Seroquel SR 300 mg. He mentions that patient has previous history of 3 suicide attempts in the past. She has bipolar disorder. He mentions that once patient is stabilized, he would like her to go to a psych unit in [facility]. Patient is present is asleep. Per nursing report, she is much improved, fully alert and awake when she is awake. She is fully oriented. 07/17/2022: Patient initially seen by Dr. Brendon Judd. Please refer to Dr. Judd's note for detail. Patient is a 77-year-old female with serotonin toxicity that was intentional due to overdose on Seroquel. Patient has previous history of suicidal attempts as well. Patient had 1 witnessed seizure and has body tremors. Patient was started on Keppra [address] Judd felt patient probably has serotonin syndrome. He recommended continue hydration. EEG revealed moderate encephalopathy. No epileptiform activity was seen. MRI brain recommended if not improved. Psych is also following. Per nursing report, patient is much more alert and awake, but hallucinates. She is awake, talking, knows the year, hallucinates, sometimes talks to her dog or sees a Romansh, thinks that she is in psych [facility]. Also on IV fluids. Objective - Vital Signs Vital signs: Vital Signs Temp 98.4 F 07/21/22 14:00 Pulse 76 07/21/22 14:00 Resp 14 07/21/22 14:00 BP 149/98 07/21/22 14:00 Pulse Ox 96 07/21/22 14:00 FiO2 100 07/16/22 19:00 Intake & Output 07/20/22 07/21/22 07/21/22 18:59 06:59 18:59 Intake Total 460 300 Output Total 500 Balance 460 -200 Weight 64 kg 62.2 kg Intake: IV 220 Sodium Chloride 0.9% 1, 220 000 ml @ 20 mls/hr IV . Q24H [facility] Rx#:[id number] Oral 240 300 Output: Urine 500 Other: Voiding Method Toilet Toilet Toilet # Voids 3 2 - Exam Patient is alert and awake, fully oriented. She knows it is July 2022 and that she is in [facility] in [facility]. No aphasia or dysarthria. Pupils are equal, round and reacting, visual wiggins are full. Patient has slightly disconjugate gaze, perhaps lazy eye. This is chronic. Face is symmetric. Strength is normal in the arms and legs, except hip flexion, which is 4+ bilaterally. Sensations appears equal. Tone is equal. Patient has slightly slow mentation. - Labs CBC & Chem 7: 07/20/22 06:13 07/20/22 06:13 Assessment and Plan Assessment: Toxic encephalopathy (intentional overdose of Seroquel) New onset seizure (witnessed one seizure by ED team) provoked due to medication effect (toxic dose of seroquel)/possible serotonin syndrome Continuous body jerks/tremors: Probably due to metabolic encephalopathy, now res olved. Suicidal attempt Chronic bipolar depression Possible aspiration pneumonia Acute hypoxic respiratory failure. Plan: EEG revealed moderate encephalopathy. No epileptiform activity was seen. Because of concern for seizures since the patient continues to have these body jerks, Dr. Judd started the patient on Keppra with a loading dose of 1 g and the maintenance of 500 mg every 12 hours. Decrease Keppra to 500 mg once daily for 2 days and then stop. Patient tolerating weaning down does well. No recurrent seizure. Patient will receive last dose of Keppra tomorrow on Sunday. Placed on seizure precautions seizure pads CK level further improving 410 and myoglobin level 3247 (<=58). CT head 07/15/2022 revealed cerebral atrophy and no acute intracranial abnormality. Recommend IV fluids. B12 1109, folate 29.9, TSH 1.29, all normal. Dr. Judd placed her on Ativan 0.5mg every Q4 hrs as needed (not large dose since causes respiratory depression/worsening hypoxia) Psychiatry and board. Neurologically clear for transfer to psychiatry unit. Discussed with nurse in detail. Neurology will sign off.
[2022-07-22] MEDS: HEPARIN SODIUM,PORCINE/PF 5,000 UNIT/0.5 ML SYRINGE SQ SCH ×4 (00:28→23:26)
[2022-07-22] MEDS: SODIUM CHLORIDE 0.9% 1,000 ML IV SCH (04:32)
[2022-07-22] MEDS: ACETAMINOPHEN TAB 325 MG TAB PO PRN ×2 (05:09→16:31)
[2022-07-22] MEDS: PANTOPRAZOLE 40 MG TABLET PO SCH (07:10)
[2022-07-22] MEDS: amLODIPine 10 MG TAB PO SCH (09:32)
[2022-07-22] MEDS: AMOXIC-POT CLAV 875-125MG 1 EACH TAB PO SCH ×2 (09:32→20:04)
[2022-07-22] MEDS: levETIRAcetam 500 MG TAB PO SCH (09:32)
[2022-07-22] MEDS: LEVOTHYROXINE 88 MCG TAB PO SCH (12:05)
--- NOTE | 2022-07-22 13:44 | P.PN ---
Subjective Progress Note Date: 07/22/22 77-year-old female presents emergency department after having taking 30 of Seroquel and they were long-acting. Patient stated she had the thought of committing suicide and she took the pills and then immediately regretted it and told her . Patient took the pills around 8:00 in the morning. Patient states she's not thinking clearly right now. Patient denies any headache patient denies any numbness or weakness. Patient denies any chest pain difficulty breathing or shortness of breath patient denies any palpitations. Patient denies abdominal pain patient denies any nausea vomiting. states that the patient has been depressive states since before Thanksgiving she's been previously diagnosed with bipolar Upon arrival to ED patient had a temperature of 98, pulse of 51 and respiration of 16 and a blood pressure of 117/69 with a pulse ox of 96% on room air oxygen. Blood work reveals WBC of 3.5 with a hemoglobin of 13.1 and a platelet count of 199. Sodium is at 134 with a potassium level of 3.7 BUN is at 10 with a creatinine of 0.6 and a glucose was 183. --CAT scan of the brain that showed no acute abnormalities. EKG reveals sinus tachycardia with frequent supraventricular premature complexes -Controlled was consulted and recommended patient on telemetry given increased risk of QTC prolongation and arrhythmias Last night patient had episode of seizure activity which lasted about 2 minutes; generalized seizure which aborted when patient was given 2 mg of IV Ativan; patient is transferred to ICU Urine tox screen is positive for tricyclic antidepressant otherwise rest is nondetected. Salsalate is less than now 1, Sinemet and less than 10 and serum alcohol was less than 10. CT of the head is reported as cerebral atrophy and no acute intracranial abnormality. No change compared to old exam Placed on seizure precautions seizure pads --CK level and myoglobin level Consider MRI of the brain if patient continues to be encephalopathic. Recommend IV fluids. --Ativan 0.5mg every Q4 hrs as needed 07/17/2022 Patient remains in the ICU, she is awake, follows simple commands but she mumbles, probably she still confused. Sitter at bedside. No restraints but Hitchcock catheter in a Place She nausea and the hospital but she is disoriented to time or person Patient currently breathing quietly, oxygen saturation is 97% on 6 L oxygen Creatinine kinase trending down. Hemoglobin 11. Patient developed by several consultants, including psychiatrist, patient does not have capacity to make decision. She is currently on Zosyn for aspiration pneumonia and Keppra. No more seizure- like activity 07/18/2022 Patient still confused but she is improving, she knows she isn't particularly on hospital but she is disoriented to time and person. However she has somewhat insight into her illness, she knows she took extra pills on Seroquel She denies any headache or new weakness or numbness Patient is hemodynamically stable. Hemoglobin 10 Creatinine kinase trending down, 470 today. She is on 6 L the morning saturating 97% Remains on Zosyn 07/19/2022 Patient is back to her basic mental status, she denies any specific symptoms today. General she is in the hospital and she knows the date and oriented to person and she has insight into her illness. Vitals stable. BMP is unremarkable. Neurology already signed off. I discussed the case with pulmonary/critical care team and they cleared her for discharge today. Patient is medically stable pending placement. Psychiatric recommended geriatric psychiatric unit, social science manager on the case, patient is medically stable for discharge pending placement Also we'll monitor her hemoglobin 07/20/2022 Patient back to her normal self, fully awake and oriented, mildly lethargic, no new complaint Vitals are stable, labs are stable and low potassium replaced. Patient currently on Augmentin Patient is medically stable for transfer to geriatric psych unit pending placement, no place for today per case mgr Discussed with staff to check a bladder scan 07/22. Patient seen and examined. Vital signs stable. Patient is very tearful. States she is anxious. REVIEW OF SYSTEMS: CONSTITUTIONAL: No fever, no malaise,. CARDIOVASCULAR: No chest pain, no palpitations, no syncope. PULMONARY: No shortness of breath, no cough, GASTROINTESTINAL: No diarrhea, no nausea, no vomiting, no abdominal pain. NEUROLOGICAL: No headaches, no weakness, PHYSICAL EXAMINATION: GENERAL: The patient is alert and oriented x3, not in any acute distress. Well developed, well nourished. HEENT: Pupils are round and equally reacting to light. EOMI. No scleral icterus. No conjunctival pallor. Normocephalic, atraumatic. No pharyngeal erythema. No thyromegaly. CARDIOVASCULAR: S1 and S2 present. No murmurs, rubs, or gallops. PULMONARY: Chest is clear to auscultation, no wheezing or crackles. ABDOMEN: Soft, nontender, nondistended, normoactive bowel sounds. No palpable organomegaly. MUSCULOSKELETAL: No joint swelling or deformity. EXTREMITIES: No cyanosis, clubbing, or pedal edema. NEUROLOGICAL: Gross neurological examination did not reveal any focal deficits. SKIN: No rashes. Assessment and plan . Intentional Seroquel overdose with suicidal attempt, patient to be transferred to geriatric psych unit Altered mental status;secondary to metabolic and toxic encephalopathy related to Seroquel overdose, With acute seizure disorder, Possible serotonin syndrome, Resolved. Patient finished her Keppra dose and patient did for discharge by neurologist Aspiration pneumonia with acute hypoxic respiratory failure: Continue with Augmentin 5 days upon discharge, relieved by civil designer Asthma; not in exacerbation; Hyperlipidemia; Hypertension; Hypothyroidism; Plan; Patient currently waiting on transfer to inpatient [facility] psych unit Continue Augmentin Continue Norvasc, lisinopril. Continue pravastatin. Continue levothyroxine Continue sitter Objective - Vital Signs Vital signs: Vital Signs Temp 98.3 F 07/22/22 13:28 Pulse 109 H 07/22/22 13:28 Resp 16 07/22/22 13:28 BP 155/110 07/22/22 13:28 Pulse Ox 96 07/22/22 13:28 FiO2 100 07/16/22 19:00 Intake & Output 07/21/22 07/22/22 07/22/22 18:59 06:59 18:59 Intake Total 500 Output Total 500 250 Balance 0 -250 Weight 58.9 kg Intake: Oral 500 Output: Urine 500 250 Other: Voiding Method Toilet Toilet Toilet # Voids 1 2 - Labs CBC & Chem 7: 07/20/22 06:13 07/20/22 06:13 Labs: Abnormal Lab Results - Last 24 Hours (Table) 07/21/22 Range/Units 17:10 Vitamin B12 1109.0 H (200.0-944.0) pg/mL
[2022-07-23] MEDS: SODIUM CHLORIDE 0.9% 1,000 ML IV SCH (06:33)
[2022-07-23] MEDS: PANTOPRAZOLE 40 MG TABLET PO SCH (06:36)
[2022-07-23] MEDS: ACETAMINOPHEN TAB 325 MG TAB PO PRN ×2 (06:53→12:39)
[2022-07-23] MEDS: amLODIPine 10 MG TAB PO SCH (07:38)
[2022-07-23] MEDS: AMOXIC-POT CLAV 875-125MG 1 EACH TAB PO SCH ×2 (07:38→20:35)
[2022-07-23] MEDS: HEPARIN SODIUM,PORCINE/PF 5,000 UNIT/0.5 ML SYRINGE SQ SCH ×3 (07:38→22:48)
[2022-07-23] MEDS: LEVOTHYROXINE 88 MCG TAB PO SCH (12:39)
--- NOTE | 2022-07-23 13:07 | P.PN ---
Subjective Progress Note Date: 07/23/22 77-year-old female presents emergency department after having taking 30 of Seroquel and they were long-acting. Patient stated she had the thought of committing suicide and she took the pills and then immediately regretted it and told her . Patient took the pills around 8:00 in the morning. Patient states she's not thinking clearly right now. Patient denies any headache patient denies any numbness or weakness. Patient denies any chest pain difficulty breathing or shortness of breath patient denies any palpitations. Patient denies abdominal pain patient denies any nausea vomiting. states that the patient has been depressive states since before Thanksgiving she's been previously diagnosed with bipolar Upon arrival to ED patient had a temperature of 98, pulse of 51 and respiration of 16 and a blood pressure of 117/69 with a pulse ox of 96% on room air oxygen. Blood work reveals WBC of 3.5 with a hemoglobin of 13.1 and a platelet count of 199. Sodium is at 134 with a potassium level of 3.7 BUN is at 10 with a creatinine of 0.6 and a glucose was 183. --CAT scan of the brain that showed no acute abnormalities. EKG reveals sinus tachycardia with frequent supraventricular premature complexes -Controlled was consulted and recommended patient on telemetry given increased risk of QTC prolongation and arrhythmias Last night patient had episode of seizure activity which lasted about 2 minutes; generalized seizure which aborted when patient was given 2 mg of IV Ativan; patient is transferred to ICU Urine tox screen is positive for tricyclic antidepressant otherwise rest is nondetected. Salsalate is less than now 1, Sinemet and less than 10 and serum alcohol was less than 10. CT of the head is reported as cerebral atrophy and no acute intracranial abnormality. No change compared to old exam Placed on seizure precautions seizure pads --CK level and myoglobin level Consider MRI of the brain if patient continues to be encephalopathic. Recommend IV fluids. --Ativan 0.5mg every Q4 hrs as needed 07/17/2022 Patient remains in the ICU, she is awake, follows simple commands but she mumbles, probably she still confused. Sitter at bedside. No restraints but Hitchcock catheter in a Place She nausea and the hospital but she is disoriented to time or person Patient currently breathing quietly, oxygen saturation is 97% on 6 L oxygen Creatinine kinase trending down. Hemoglobin 11. Patient developed by several consultants, including psychiatrist, patient does not have capacity to make decision. She is currently on Zosyn for aspiration pneumonia and Keppra. No more seizure- like activity 07/18/2022 Patient still confused but she is improving, she knows she isn't particularly on hospital but she is disoriented to time and person. However she has somewhat insight into her illness, she knows she took extra pills on Seroquel She denies any headache or new weakness or numbness Patient is hemodynamically stable. Hemoglobin 10 Creatinine kinase trending down, 470 today. She is on 6 L the morning saturating 97% Remains on Zosyn 07/19/2022 Patient is back to her basic mental status, she denies any specific symptoms today. General she is in the hospital and she knows the date and oriented to person and she has insight into her illness. Vitals stable. BMP is unremarkable. Neurology already signed off. I discussed the case with pulmonary/critical care team and they cleared her for discharge today. Patient is medically stable pending placement. Psychiatric recommended geriatric psychiatric unit, older adult social work specialist on the case, patient is medically stable for discharge pending placement Also we'll monitor her hemoglobin 07/20/2022 Patient back to her normal self, fully awake and oriented, mildly lethargic, no new complaint Vitals are stable, labs are stable and low potassium replaced. Patient currently on Augmentin Patient is medically stable for transfer to geriatric psych unit pending placement, no place for today per skilled nursing case manager Discussed with staff to check a bladder scan 07/22. Patient seen and examined. Vital signs stable. Patient is very tearful. States she is anxious. 07/23. Patient seen and examined. Labs reviewed,. No acute issues overnight. Patient keen to go to inpatient psych. Stated that she needs to get better REVIEW OF SYSTEMS: CONSTITUTIONAL: No fever, no malaise,. CARDIOVASCULAR: No chest pain, no palpitations, no syncope. PULMONARY: No shortness of breath, no cough, GASTROINTESTINAL: No diarrhea, no nausea, no vomiting, no abdominal pain. NEUROLOGICAL: No headaches, no weakness, PHYSICAL EXAMINATION: GENERAL: The patient is alert and oriented x3, not in any acute distress. Well developed, well nourished. HEENT: Pupils are round and equally reacting to light. EOMI. No scleral icterus. No conjunctival pallor. Normocephalic, atraumatic. No pharyngeal erythema. No thyromegaly. CARDIOVASCULAR: S1 and S2 present. No murmurs, rubs, or gallops. PULMONARY: Chest is clear to auscultation, no wheezing or crackles. ABDOMEN: Soft, nontender, nondistended, normoactive bowel sounds. No palpable organomegaly. MUSCULOSKELETAL: No joint swelling or deformity. EXTREMITIES: No cyanosis, clubbing, or pedal edema. NEUROLOGICAL: Gross neurological examination did not reveal any focal deficits. SKIN: No rashes. Assessment and plan . Intentional Seroquel overdose with suicidal attempt, patient to be transferred to geriatric psych unit Altered mental status;secondary to metabolic and toxic encephalopathy related to Seroquel overdose, With acute seizure disorder, Possible serotonin syndrome, Resolved. Patient finished her Keppra dose and patient did for discharge by neurologist Aspiration pneumonia with acute hypoxic respiratory failure: Continue with Au gmentin 5 days upon discharge, relieved by business taxes specialist Asthma; not in exacerbation; Hyperlipidemia; Hypertension; Hypothyroidism; Plan; Patient currently waiting on transfer to inpatient [facility] Continue Augmentin till 07/25 Continue Norvasc, lisinopril. Continue pravastatin. Continue levothyroxine Continue sitter Objective - Vital Signs Vital signs: Vital Signs Temp 98.1 F 07/23/22 08:00 Pulse 79 07/23/22 08:00 Resp 16 07/23/22 08:00 BP 158/84 07/23/22 08:00 Pulse Ox 99 07/23/22 08:33 FiO2 100 07/16/22 19:00 Intake & Output 07/22/22 07/23/22 07/23/22 18:59 06:59 18:59 Intake Total 720 Balance 720 Intake: Oral 720 Other: Voiding Method Toilet Toilet Toilet # Voids 2 4 - Labs CBC & Chem 7: 07/20/22 06:13 07/20/22 06:13
[2022-07-23] MEDS: MELATONIN 5 MG TABLET PO SCH (22:35)
[2022-07-24] MEDS: SODIUM CHLORIDE 0.9% 1,000 ML IV SCH (02:07)
[2022-07-24] MEDS: PANTOPRAZOLE 40 MG TABLET PO SCH (06:27)
[2022-07-24] MEDS: ACETAMINOPHEN TAB 325 MG TAB PO PRN ×2 (08:00→17:30)
[2022-07-24] MEDS: amLODIPine 10 MG TAB PO SCH (08:00)
[2022-07-24] MEDS: HEPARIN SODIUM,PORCINE/PF 5,000 UNIT/0.5 ML SYRINGE SQ SCH ×4 (08:01→23:27)
[2022-07-24] MEDS: AMOXIC-POT CLAV 875-125MG 1 EACH TAB PO SCH ×2 (08:01→21:44)
[2022-07-24] MEDS: LEVOTHYROXINE 88 MCG TAB PO SCH (13:32)
--- NOTE | 2022-07-24 14:34 | P.PN ---
Subjective Progress Note Date: 07/24/22 77-year-old female presents emergency department after having taking 30 of Seroquel and they were long-acting. Patient stated she had the thought of committing suicide and she took the pills and then immediately regretted it and told her . Patient took the pills around 8:00 in the morning. Patient states she's not thinking clearly right now. Patient denies any headache patient denies any numbness or weakness. Patient denies any chest pain difficulty breathing or shortness of breath patient denies any palpitations. Patient denies abdominal pain patient denies any nausea vomiting. states that the patient has been depressive states since before Thanksgiving she's been previously diagnosed with bipolar Upon arrival to ED patient had a temperature of 98, pulse of 51 and respiration of 16 and a blood pressure of 117/69 with a pulse ox of 96% on room air oxygen. Blood work reveals WBC of 3.5 with a hemoglobin of 13.1 and a platelet count of 199. Sodium is at 134 with a potassium level of 3.7 BUN is at 10 with a creatinine of 0.6 and a glucose was 183. --CAT scan of the brain that showed no acute abnormalities. EKG reveals sinus tachycardia with frequent supraventricular premature complexes -Controlled was consulted and recommended patient on telemetry given increased risk of QTC prolongation and arrhythmias Last night patient had episode of seizure activity which lasted about 2 minutes; generalized seizure which aborted when patient was given 2 mg of IV Ativan; patient is transferred to ICU Urine tox screen is positive for tricyclic antidepressant otherwise rest is nondetected. Salsalate is less than now 1, Sinemet and less than 10 and serum alcohol was less than 10. CT of the head is reported as cerebral atrophy and no acute intracranial abnormality. No change compared to old exam Placed on seizure precautions seizure pads --CK level and myoglobin level Consider MRI of the brain if patient continues to be encephalopathic. Recommend IV fluids. --Ativan 0.5mg every Q4 hrs as needed 07/17/2022 Patient remains in the ICU, she is awake, follows simple commands but she mumbles, probably she still confused. Sitter at bedside. No restraints but Hitchcock catheter in a Place She nausea and the hospital but she is disoriented to time or person Patient currently breathing quietly, oxygen saturation is 97% on 6 L oxygen Creatinine kinase trending down. Hemoglobin 11. Patient developed by several consultants, including psychiatrist, patient does not have capacity to make decision. She is currently on Zosyn for aspiration pneumonia and Keppra. No more seizure- like activity 07/18/2022 Patient still confused but she is improving, she knows she isn't particularly on hospital but she is disoriented to time and person. However she has somewhat insight into her illness, she knows she took extra pills on Seroquel She denies any headache or new weakness or numbness Patient is hemodynamically stable. Hemoglobin 10 Creatinine kinase trending down, 470 today. She is on 6 L the morning saturating 97% Remains on Zosyn 07/19/2022 Patient is back to her basic mental status, she denies any specific symptoms today. General she is in the hospital and she knows the date and oriented to person and she has insight into her illness. Vitals stable. BMP is unremarkable. Neurology already signed off. I discussed the case with pulmonary/critical care team and they cleared her for discharge today. Patient is medically stable pending placement. Psychiatric recommended geriatric psychiatric unit, social media developer on the case, patient is medically stable for discharge pending placement Also we'll monitor her hemoglobin 07/20/2022 Patient back to her normal self, fully awake and oriented, mildly lethargic, no new complaint Vitals are stable, labs are stable and low potassium replaced. Patient currently on Augmentin Patient is medically stable for transfer to geriatric psych unit pending placement, no place for today per showcase maker Discussed with staff to check a bladder scan 07/22. Patient seen and examined. Vital signs stable. Patient is very tearful. States she is anxious. 07/23. Patient seen and examined. Labs reviewed,. No acute issues overnight. Patient keen to go to inpatient psych. Stated that she needs to get better 07/24. Patient seen and examined. Vital signs stable. Sitter at the bedside. No acute issues overnight REVIEW OF SYSTEMS: CONSTITUTIONAL: No fever, no malaise,. CARDIOVASCULAR: No chest pain, no palpitations, no syncope. PULMONARY: No shortness of breath, no cough, GASTROINTESTINAL: No diarrhea, no nausea, no vomiting, no abdominal pain. NEUROLOGICAL: No headaches, no weakness, PHYSICAL EXAMINATION: GENERAL: The patient is alert and oriented x3, not in any acute distress. Well developed, well nourished. HEENT: Pupils are round and equally reacting to light. EOMI. No scleral icterus. No conjunctival pallor. Normocephalic, atraumatic. No pharyngeal erythema. No thyromegaly. CARDIOVASCULAR: S1 and S2 present. No murmurs, rubs, or gallops. PULMONARY: Chest is clear to auscultation, no wheezing or crackles. ABDOMEN: Soft, nontender, nondistended, normoactive bowel sounds. No palpable organomegaly. MUSCULOSKELETAL: No joint swelling or deformity. EXTREMITIES: No cyanosis, clubbing, or pedal edema. NEUROLOGICAL: Gross neurological examination did not reveal any focal deficits. SKIN: No rashes. Assessment and plan . Intentional Seroquel overdose with suicidal attempt, patient to be transferred to geriatric psych unit Altered mental status;secondary to metabolic and toxic encephalopathy related to Seroquel overdose, With acute seizure disorder, Possible serotonin syndrome, Resolved. Patient finished her Keppra dose and patient did for discharge by neurologist Aspiration pneumonia with acute hypoxic respiratory failure: Continue with Augmentin 5 days upon discharge, relieved by pharmaceutical sales specialist Asthma; not in exacerbation; Hyperlipidemia; Hypertension; Hypothyroidism; Plan; Patient currently waiting on transfer to inpatient [facility] unit Continue Augmentin till 07/25 Continue Norvasc, lisinopril. Continue pravastatin. Continue levothyroxine Continue sitter Patient medically stable for transfer to inpatient psych Objective - Vital Signs Vital signs: Vital Signs Temp 98.5 F 07/24/22 07:59 Pulse 75 07/24/22 13:02 Resp 16 07/24/22 13:02 BP 125/78 07/24/22 13:02 Pulse Ox 97 07/24/22 13:02 FiO2 100 07/16/22 19:00 Intake & Output 07/23/22 07/24/22 07/24/22 18:59 06:59 18:59 Intake Total 840 240 Balance 840 240 Intake: Oral 840 240 Other: Voiding Method Toilet Toilet # Voids 2 2 1 - Labs CBC & Chem 7: 07/20/22 06:13 07/20/22 06:13
[2022-07-24] MEDS: MELATONIN 5 MG TABLET PO SCH (20:57)
[2022-07-25] MEDS: SODIUM CHLORIDE 0.9% 1,000 ML IV SCH ×2 (02:23→21:07)
[2022-07-25] MEDS: PANTOPRAZOLE 40 MG TABLET PO SCH (05:43)
[2022-07-25] MEDS: HEPARIN SODIUM,PORCINE/PF 5,000 UNIT/0.5 ML SYRINGE SQ SCH ×3 (09:38→20:59)
[2022-07-25] MEDS: amLODIPine 10 MG TAB PO SCH (09:38)
[2022-07-25] MEDS: AMOXIC-POT CLAV 875-125MG 1 EACH TAB PO SCH ×2 (09:49→20:59)
[2022-07-25] MEDS: LEVOTHYROXINE 88 MCG TAB PO SCH (12:54)
--- NOTE | 2022-07-25 14:01 | P.PN ---
Subjective Progress Note Date: 07/25/22 77-year-old female presents emergency department after having taking 30 of Seroquel and they were long-acting. Patient stated she had the thought of committing suicide and she took the pills and then immediately regretted it and told her . Patient took the pills around 8:00 in the morning. Patient states she's not thinking clearly right now. Patient denies any headache patient denies any numbness or weakness. Patient denies any chest pain difficulty breathing or shortness of breath patient denies any palpitations. Patient denies abdominal pain patient denies any nausea vomiting. states that the patient has been depressive states since before Thanksgiving she's been previously diagnosed with bipolar Upon arrival to ED patient had a temperature of 98, pulse of 51 and respiration of 16 and a blood pressure of 117/69 with a pulse ox of 96% on room air oxygen. Blood work reveals WBC of 3.5 with a hemoglobin of 13.1 and a platelet count of 199. Sodium is at 134 with a potassium level of 3.7 BUN is at 10 with a creatinine of 0.6 and a glucose was 183. --CAT scan of the brain that showed no acute abnormalities. EKG reveals sinus tachycardia with frequent supraventricular premature complexes -Controlled was consulted and recommended patient on telemetry given increased risk of QTC prolongation and arrhythmias Last night patient had episode of seizure activity which lasted about 2 minutes; generalized seizure which aborted when patient was given 2 mg of IV Ativan; patient is transferred to ICU Urine tox screen is positive for tricyclic antidepressant otherwise rest is nondetected. Salsalate is less than now 1, Sinemet and less than 10 and serum alcohol was less than 10. CT of the head is reported as cerebral atrophy and no acute intracranial abnormality. No change compared to old exam Placed on seizure precautions seizure pads --CK level and myoglobin level Consider MRI of the brain if patient continues to be encephalopathic. Recommend IV fluids. --Ativan 0.5mg every Q4 hrs as needed 07/17/2022 Patient remains in the ICU, she is awake, follows simple commands but she mumbles, probably she still confused. Sitter at bedside. No restraints but Hitchcock catheter in a Place She nausea and the hospital but she is disoriented to time or person Patient currently breathing quietly, oxygen saturation is 97% on 6 L oxygen Creatinine kinase trending down. Hemoglobin 11. Patient developed by several consultants, including psychiatrist, patient does not have capacity to make decision. She is currently on Zosyn for aspiration pneumonia and Keppra. No more seizure- like activity 07/18/2022 Patient still confused but she is improving, she knows she isn't particularly on hospital but she is disoriented to time and person. However she has somewhat insight into her illness, she knows she took extra pills on Seroquel She denies any headache or new weakness or numbness Patient is hemodynamically stable. Hemoglobin 10 Creatinine kinase trending down, 470 today. She is on 6 L the morning saturating 97% Remains on Zosyn 07/19/2022 Patient is back to her basic mental status, she denies any specific symptoms today. General she is in the hospital and she knows the date and oriented to person and she has insight into her illness. Vitals stable. BMP is unremarkable. Neurology already signed off. I discussed the case with pulmonary/critical care team and they cleared her for discharge today. Patient is medically stable pending placement. Psychiatric recommended geriatric psychiatric unit, social organization professor on the case, patient is medically stable for discharge pending placement Also we'll monitor her hemoglobin 07/20/2022 Patient back to her normal self, fully awake and oriented, mildly lethargic, no new complaint Vitals are stable, labs are stable and low potassium replaced. Patient currently on Augmentin Patient is medically stable for transfer to geriatric psych unit pending placement, no place for today per case picker Discussed with staff to check a bladder scan 07/22. Patient seen and examined. Vital signs stable. Patient is very tearful. States she is anxious. 07/23. Patient seen and examined. Labs reviewed,. No acute issues overnight. Patient keen to go to inpatient psych. Stated that she needs to get better 07/24. Patient seen and examined. Vital signs stable. Sitter at the bedside. No acute issues overnight 07/25. Patient seen and examined. Patient is a very friendly person, currently in pleasant mood. Denies any auditory or visual visual hallucinations REVIEW OF SYSTEMS: CONSTITUTIONAL: No fever, no malaise,. CARDIOVASCULAR: No chest pain, no palpitations, no syncope. PULMONARY: No shortness of breath, no cough, GASTROINTESTINAL: No diarrhea, no nausea, no vomiting, no abdominal pain. NEUROLOGICAL: No headaches, no weakness, PHYSICAL EXAMINATION: GENERAL: The patient is alert and oriented x3, not in any acute distress. Well developed, well nourished. HEENT: Pupils are round and equally reacting to light. EOMI. No scleral icterus. No conjunctival pallor. Normocephalic, atraumatic. No pharyngeal erythema. No thyromegaly. CARDIOVASCULAR: S1 and S2 present. No murmurs, rubs, or gallops. PULMONARY: Chest is clear to auscultation, no wheezing or crackles. ABDOMEN: Soft, nontender, nondistended, normoactive bowel sounds. No palpable organomegaly. MUSCULOSKELETAL: No joint swelling or deformity. EXTREMITIES: No cyanosis, clubbing, or pedal edema. NEUROLOGICAL: Gross neurological examination did not reveal any focal deficits. SKIN: No rashes. Assessment and plan . Intentional Seroquel overdose with suicidal attempt, patient to be trans ferred to geriatric psych unit Altered mental status;secondary to metabolic and toxic encephalopathy related to Seroquel overdose, With acute seizure disorder, Possible serotonin syndrome, Resolved. Patient finished her Keppra dose and patient did for discharge by neurologist Aspiration pneumonia with acute hypoxic respiratory failure: Continue with Augmentin 5 days upon discharge, relieved by gear hobber set up operator Asthma; not in exacerbation; Hyperlipidemia; Hypertension; Hypothyroidism; Plan; Patient currently waiting on transfer to inpatient [facility] unit Continue Augmentin till 07/25 Continue Norvasc, lisinopril. Continue pravastatin. Continue levothyroxine Continue sitter Objective - Vital Signs Vital signs: Vital Signs Temp 98.5 F 07/25/22 08:00 Pulse 73 07/25/22 08:00 Resp 16 07/25/22 08:00 BP 140/90 07/25/22 08:00 Pulse Ox 94 L 07/25/22 08:00 FiO2 100 07/16/22 19:00 Intake & Output 07/24/22 07/25/22 07/25/22 18:59 06:59 18:59 Intake Total 240 Balance 240 Intake: Oral 240 Other: Voiding Method Toilet Toilet # Voids 1 4 - Labs CBC & Chem 7: 07/20/22 06:13 07/20/22 06:13
[2022-07-25] MEDS: ACETAMINOPHEN TAB 325 MG TAB PO PRN (18:22)
[2022-07-25] MEDS: MELATONIN 5 MG TABLET PO SCH (21:00)
[2022-07-26] MEDS: ACETAMINOPHEN TAB 325 MG TAB PO PRN ×3 (02:00→20:18)
[2022-07-26] MEDS: PANTOPRAZOLE 40 MG TABLET PO SCH (06:13)
[2022-07-26] MEDS: amLODIPine 10 MG TAB PO SCH (08:12)
[2022-07-26] MEDS: HEPARIN SODIUM,PORCINE/PF 5,000 UNIT/0.5 ML SYRINGE SQ SCH ×4 (08:12→23:47)
[2022-07-26] MEDS: AMOXIC-POT CLAV 875-125MG 1 EACH TAB PO SCH (08:12)
--- NOTE | 2022-07-26 12:36 | P.PN ---
Subjective Progress Note Date: 07/26/22 77-year-old female presents emergency department after having taking 30 of Seroquel and they were long-acting. Patient stated she had the thought of committing suicide and she took the pills and then immediately regretted it and told her . Patient took the pills around 8:00 in the morning. Patient states she's not thinking clearly right now. Patient denies any headache patient denies any numbness or weakness. Patient denies any chest pain difficulty breathing or shortness of breath patient denies any palpitations. Patient denies abdominal pain patient denies any nausea vomiting. states that the patient has been depressive states since before Thanksgiving she's been previously diagnosed with bipolar Upon arrival to ED patient had a temperature of 98, pulse of 51 and respiration of 16 and a blood pressure of 117/69 with a pulse ox of 96% on room air oxygen. Blood work reveals WBC of 3.5 with a hemoglobin of 13.1 and a platelet count of 199. Sodium is at 134 with a potassium level of 3.7 BUN is at 10 with a creatinine of 0.6 and a glucose was 183. --CAT scan of the brain that showed no acute abnormalities. EKG reveals sinus tachycardia with frequent supraventricular premature complexes -Controlled was consulted and recommended patient on telemetry given increased risk of QTC prolongation and arrhythmias Last night patient had episode of seizure activity which lasted about 2 minutes; generalized seizure which aborted when patient was given 2 mg of IV Ativan; patient is transferred to ICU Urine tox screen is positive for tricyclic antidepressant otherwise rest is nondetected. Salsalate is less than now 1, Sinemet and less than 10 and serum alcohol was less than 10. CT of the head is reported as cerebral atrophy and no acute intracranial abnormality. No change compared to old exam Placed on seizure precautions seizure pads --CK level and myoglobin level Consider MRI of the brain if patient continues to be encephalopathic. Recommend IV fluids. --Ativan 0.5mg every Q4 hrs as needed 07/17/2022 Patient remains in the ICU, she is awake, follows simple commands but she mumbles, probably she still confused. Sitter at bedside. No restraints but Hitchcock catheter in a Place She nausea and the hospital but she is disoriented to time or person Patient currently breathing quietly, oxygen saturation is 97% on 6 L oxygen Creatinine kinase trending down. Hemoglobin 11. Patient developed by several consultants, including psychiatrist, patient does not have capacity to make decision. She is currently on Zosyn for aspiration pneumonia and Keppra. No more seizure- like activity 07/18/2022 Patient still confused but she is improving, she knows she isn't particularly on hospital but she is disoriented to time and person. However she has somewhat insight into her illness, she knows she took extra pills on Seroquel She denies any headache or new weakness or numbness Patient is hemodynamically stable. Hemoglobin 10 Creatinine kinase trending down, 470 today. She is on 6 L the morning saturating 97% Remains on Zosyn 07/19/2022 Patient is back to her basic mental status, she denies any specific symptoms today. General she is in the hospital and she knows the date and oriented to person and she has insight into her illness. Vitals stable. BMP is unremarkable. Neurology already signed off. I discussed the case with pulmonary/critical care team and they cleared her for discharge today. Patient is medically stable pending placement. Psychiatric recommended geriatric psychiatric unit, manager social on the case, patient is medically stable for discharge pending placement Also we'll monitor her hemoglobin 07/20/2022 Patient back to her normal self, fully awake and oriented, mildly lethargic, no new complaint Vitals are stable, labs are stable and low potassium replaced. Patient currently on Augmentin Patient is medically stable for transfer to geriatric psych unit pending placement, no place for today per window caser Discussed with staff to check a bladder scan 07/22. Patient seen and examined. Vital signs stable. Patient is very tearful. States she is anxious. 07/23. Patient seen and examined. Labs reviewed,. No acute issues overnight. Patient keen to go to inpatient psych. Stated that she needs to get better 07/24. Patient seen and examined. Vital signs stable. Sitter at the bedside. No acute issues overnight 07/25. Patient seen and examined. Patient is a very friendly person, currently in pleasant mood. Denies any auditory or visual visual hallucinations 07/26. Patient seen and examined. Sitter at the bedside. No acute issues overnight REVIEW OF SYSTEMS: CONSTITUTIONAL: No fever, no malaise,. CARDIOVASCULAR: No chest pain, no palpitations, no syncope. PULMONARY: No shortness of breath, no cough, GASTROINTESTINAL: No diarrhea, no nausea, no vomiting, no abdominal pain. NEUROLOGICAL: No headaches, no weakness, PHYSICAL EXAMINATION: GENERAL: The patient is alert and oriented x3, not in any acute distress. Well developed, well nourished. HEENT: Pupils are round and equally reacting to light. EOMI. No scleral icterus. No conjunctival pallor. Normocephalic, atraumatic. No pharyngeal erythema. No thyromegaly. CARDIOVASCULAR: S1 and S2 present. No murmurs, rubs, or gallops. PULMONARY: Chest is clear to auscultation, no wheezing or crackles. ABDOMEN: Soft, nontender, nondistended, normoactive bowel sounds. No palpable organomegaly. MUSCULOSKELETAL: No joint swelling or deformity. EXTREMITIES: No cyanosis, clubbing, or pedal edema. NEUROLOGICAL: Gross neurological examination did not reveal any focal deficits. SKIN: No rashes. Assessment and plan . Intentional Seroquel overdose with suicidal attempt, patient to be transferred to geriatric psych unit Altered mental status;secondary to metabolic and toxic encephalopathy related to Seroquel overdose, With acute seizure disorder, Possible serotonin syndrome, Resolved. Patient finished her Keppra dose and patient did for discharge by neurologist Aspiration pneumonia with acute hypoxic respiratory failure: Continue with Augmentin 5 days upon discharge, relieved by drawbench operator Asthma; not in exacerbation; Hyperlipidemia; Hypertension; Hypothyroidism; Plan; Continue Norvasc, lisinopril. Continue pravastatin. Continue levothyroxine Continue sitter Waiting on transfer to inpatient [facility] Objective - Vital Signs Vital signs: Vital Signs Temp 98.3 F 07/26/22 08:00 Pulse 75 07/26/22 08:12 Resp 20 07/26/22 08:12 BP 155/100 07/26/22 08:00 Pulse Ox 100 07/26/22 08:00 FiO2 100 07/16/22 19:00 Intake & Output 07/25/22 07/26/22 07/26/22 18:59 06:59 18:59 Other: Voiding Method Toilet Toilet # Voids 1 3 - Labs CBC & Chem 7: 07/20/22 06:13 07/20/22 06:13
[2022-07-26] MEDS: LEVOTHYROXINE 88 MCG TAB PO SCH (13:25)
[2022-07-26] MEDS: MELATONIN 5 MG TABLET PO SCH (20:18)
[2022-07-27] MEDS: ACETAMINOPHEN TAB 325 MG TAB PO PRN ×2 (01:44→08:09)
[2022-07-27] MEDS: SODIUM CHLORIDE 0.9% 1,000 ML IV SCH (05:31)
[2022-07-27] MEDS: PANTOPRAZOLE 40 MG TABLET PO SCH (06:45)
[2022-07-27] MEDS: HEPARIN SODIUM,PORCINE/PF 5,000 UNIT/0.5 ML SYRINGE SQ SCH (08:09)
[2022-07-27] MEDS: amLODIPine 10 MG TAB PO SCH (08:09)
[2022-07-27] MEDS: LEVOTHYROXINE 88 MCG TAB PO SCH (11:02)
--- NOTE | 2022-07-27 14:02 | P.PN ---
Subjective Progress Note Date: 07/27/22 77-year-old female presents emergency department after having taking 30 of Seroquel and they were long-acting. Patient stated she had the thought of committing suicide and she took the pills and then immediately regretted it and told her . Patient took the pills around 8:00 in the morning. Patient states she's not thinking clearly right now. Patient denies any headache patient denies any numbness or weakness. Patient denies any chest pain difficulty breathing or shortness of breath patient denies any palpitations. Patient denies abdominal pain patient denies any nausea vomiting. states that the patient has been depressive states since before Thanksgiving she's been previously diagnosed with bipolar Upon arrival to ED patient had a temperature of 98, pulse of 51 and respiration of 16 and a blood pressure of 117/69 with a pulse ox of 96% on room air oxygen. Blood work reveals WBC of 3.5 with a hemoglobin of 13.1 and a platelet count of 199. Sodium is at 134 with a potassium level of 3.7 BUN is at 10 with a creatinine of 0.6 and a glucose was 183. --CAT scan of the brain that showed no acute abnormalities. EKG reveals sinus tachycardia with frequent supraventricular premature complexes -Controlled was consulted and recommended patient on telemetry given increased risk of QTC prolongation and arrhythmias Last night patient had episode of seizure activity which lasted about 2 minutes; generalized seizure which aborted when patient was given 2 mg of IV Ativan; patient is transferred to ICU Urine tox screen is positive for tricyclic antidepressant otherwise rest is nondetected. Salsalate is less than now 1, Sinemet and less than 10 and serum alcohol was less than 10. CT of the head is reported as cerebral atrophy and no acute intracranial abnormality. No change compared to old exam Placed on seizure precautions seizure pads --CK level and myoglobin level Consider MRI of the brain if patient continues to be encephalopathic. Recommend IV fluids. --Ativan 0.5mg every Q4 hrs as needed 07/17/2022 Patient remains in the ICU, she is awake, follows simple commands but she mumbles, probably she still confused. Sitter at bedside. No restraints but Hitchcock catheter in a Place She nausea and the hospital but she is disoriented to time or person Patient currently breathing quietly, oxygen saturation is 97% on 6 L oxygen Creatinine kinase trending down. Hemoglobin 11. Patient developed by several consultants, including psychiatrist, patient does not have capacity to make decision. She is currently on Zosyn for aspiration pneumonia and Keppra. No more seizure- like activity 07/18/2022 Patient still confused but she is improving, she knows she isn't particularly on hospital but she is disoriented to time and person. However she has somewhat insight into her illness, she knows she took extra pills on Seroquel She denies any headache or new weakness or numbness Patient is hemodynamically stable. Hemoglobin 10 Creatinine kinase trending down, 470 today. She is on 6 L the morning saturating 97% Remains on Zosyn 07/19/2022 Patient is back to her basic mental status, she denies any specific symptoms today. General she is in the hospital and she knows the date and oriented to person and she has insight into her illness. Vitals stable. BMP is unremarkable. Neurology already signed off. I discussed the case with pulmonary/critical care team and they cleared her for discharge today. Patient is medically stable pending placement. Psychiatric recommended geriatric psychiatric unit, social insurance specialist on the case, patient is medically stable for discharge pending placement Also we'll monitor her hemoglobin 07/20/2022 Patient back to her normal self, fully awake and oriented, mildly lethargic, no new complaint Vitals are stable, labs are stable and low potassium replaced. Patient currently on Augmentin Patient is medically stable for transfer to geriatric psych unit pending placement, no place for today per case supervisor Discussed with staff to check a bladder scan 07/22. Patient seen and examined. Vital signs stable. Patient is very tearful. States she is anxious. 07/23. Patient seen and examined. Labs reviewed,. No acute issues overnight. Patient keen to go to inpatient psych. Stated that she needs to get better 07/24. Patient seen and examined. Vital signs stable. Sitter at the bedside. No acute issues overnight 07/25. Patient seen and examined. Patient is a very friendly person, currently in pleasant mood. Denies any auditory or visual visual hallucinations 07/26. Patient seen and examined. Sitter at the bedside. No acute issues overnight 07/27. Patient seen and examined. Patient is stable for discharge. Repeat clinical cert done this morning REVIEW OF SYSTEMS: CONSTITUTIONAL: No fever, no malaise,. CARDIOVASCULAR: No chest pain, no palpitations, no syncope. PULMONARY: No shortness of breath, no cough, GASTROINTESTINAL: No diarrhea, no nausea, no vomiting, no abdominal pain. NEUROLOGICAL: No headaches, no weakness, PHYSICAL EXAMINATION: GENERAL: The patient is alert and oriented x3, not in any acute distress. Well developed, well nourished. HEENT: Pupils are round and equally reacting to light. EOMI. No scleral icterus. No conjunctival pallor. Normocephalic, atraumatic. No pharyngeal erythema. No thyromegaly. CARDIOVASCULAR: S1 and S2 present. No murmurs, rubs, or gallops. PULMONARY: Chest is clear to auscultation, no wheezing or crackles. ABDOMEN: Soft, nontender, nondistended, normoactive bowel sounds. No palpable organomegaly. MUSCULOSKELETAL: No joint swelling or deformity. EXTREMITIES: No cyanosis, clubbing, or pedal edema. NEUROLOGICAL: Gross neurological examination did not reveal any focal deficits. SKIN: No rashes. Assessment and plan . Intentional Seroquel overdose with suicidal attempt, patient to be transferre d to geriatric psych unit Altered mental status;secondary to metabolic and toxic encephalopathy related to Seroquel overdose, With acute seizure disorder, Possible serotonin syndrome, Resolved. Patient finished her Keppra dose and patient did for discharge by neurologist Aspiration pneumonia with acute hypoxic respiratory failure: Continue with Augmentin 5 days upon discharge, relieved by account information clerk Asthma; not in exacerbation; Hyperlipidemia; Hypertension; Hypothyroidism; Plan; Continue Norvasc, lisinopril. Continue pravastatin. Continue levothyroxine Continue sitter Waiting on transfer to inpatient [facility] psych Objective - Vital Signs Vital signs: Vital Signs Temp 98.6 F 07/27/22 07:20 Pulse 70 07/27/22 08:09 Resp 16 07/27/22 08:09 BP 148/95 07/27/22 07:20 Pulse Ox 95 07/27/22 07:20 FiO2 100 07/16/22 19:00 Intake & Output 07/26/22 07/27/22 07/27/22 18:59 06:59 18:59 Intake Total 100 118 Output Total 1 Balance 100 -1 118 Intake: Oral 100 118 Output: Urine/Stool Mix 1 Other: Voiding Method Toilet Toilet # Voids 2 3 - Labs CBC & Chem 7: 07/20/22 06:13 07/20/22 06:13
--- NOTE | 2022-07-27 14:16 | P.DS ---
Providers Date of admission: 07/15/22 10:38 Expected date of discharge: 07/27/22 Attending physician: Haresh Gordon Consults: 07/15/22 23:06 Consult Physician Urgent Consulting Provider: Brendon Judd Consult Reason/Comments: NOS seizure Do you want consulting provider notified?: Yes 07/16/22 04:27 Consult Physician Urgent Consulting Provider: Telly Jimenez Consult Reason/Comments: ICU management Do you want consulting provider notified?: Already Contacted 07/16/22 10:31 Consult Physician Routine Consulting Provider: Riley Almeida Consult Reason/Comments: suicidal ideation/attempt Do you want consulting provider notified?: Yes Primary care physician: Dez Bowne [facility] Course: Discharge diagnoses; Intentional Seroquel overdose with suicidal attempt, patient to be transferred to geriatric psych unit Altered mental status;secondary to metabolic and toxic encephalopathy related to Seroquel overdose, With acute seizure disorder, Possible serotonin syndrome, Resolved. Patient finished her Keppra dose and patient did for discharge by neurologist Aspiration pneumonia with acute hypoxic respiratory failure: Continue with Augmentin 5 days upon discharge, relieved by field insurance sales manager Asthma; not in exacerbation; Hyperlipidemia; Hypertension; Hypothyroidism; Hospital course; 77-year-old female presents emergency department after having taking 30 of Seroquel and they were long-acting. Patient stated she had the thought of committing suicide and she took the pills and then immediately regretted it and told her . Patient took the pills around 8:00 in the morning. Patient states she's not thinking clearly right now. Patient denies any headache patient denies any numbness or weakness. Patient denies any chest pain difficulty breathing or shortness of breath patient denies any palpitations. Patient denies abdominal pain patient denies any nausea vomiting. states that the patient has been depressive states since before Thanksgiving she's been previously diagnosed with bipolar Upon arrival to ED patient had a temperature of 98, pulse of 51 and respiration of 16 and a blood pressure of 117/69 with a pulse ox of 96% on room air oxygen. Blood work reveals WBC of 3.5 with a hemoglobin of 13.1 and a platelet count of 199. Sodium is at 134 with a potassium level of 3.7 BUN is at 10 with a creatinine of 0.6 and a glucose was 183. --CAT scan of the brain that showed no acute abnormalities. EKG reveals sinus tachycardia with frequent supraventricular premature complexes -Controlled was consulted and recommended patient on telemetry given increased risk of QTC prolongation and arrhythmias Last night patient had episode of seizure activity which lasted about 2 minutes; generalized seizure which aborted when patient was given 2 mg of IV Ativan; patient is transferred to ICU Urine tox screen is positive for tricyclic antidepressant otherwise rest is nondetected. Salsalate is less than now 1, Sinemet and less than 10 and serum alcohol was less than 10. CT of the head is reported as cerebral atrophy and no acute intracranial abnormality. No change compared to old exam Placed on seizure precautions seizure pads --CK level and myoglobin level Consider MRI of the brain if patient continues to be encephalopathic. Recommend IV fluids. --Ativan 0.5mg every Q4 hrs as needed 07/17/2022 Patient remains in the ICU, she is awake, follows simple commands but she mumbles, probably she still confused. Sitter at bedside. No restraints but Hitchcock catheter in a Place She nausea and the hospital but she is disoriented to time or person Patient currently breathing quietly, oxygen saturation is 97% on 6 L oxygen Creatinine kinase trending down. Hemoglobin 11. Patient developed by several consultants, including psychiatrist, patient does not have capacity to make decision. She is currently on Zosyn for aspiration pneumonia and Keppra. No more seizure- like activity 07/18/2022 Patient still confused but she is improving, she knows she isn't particularly on hospital but she is disoriented to time and person. However she has somewhat insight into her illness, she knows she took extra pills on Seroquel She denies any headache or new weakness or numbness Patient is hemodynamically stable. Hemoglobin 10 Creatinine kinase trending down, 470 today. She is on 6 L the morning saturating 97% Remains on Zosyn 07/19/2022 Patient is back to her basic mental status, she denies any specific symptoms today. General she is in the hospital and she knows the date and oriented to person and she has insight into her illness. Vitals stable. BMP is unremarkable. Neurology already signed off. I discussed the case with pulmonary/critical care team and they cleared her for discharge today. Patient is medically stable pending placement. Psychiatric recommended geriatric psychiatric unit, certified social workers in health care on the case, patient is medically stable for discharge pending placement Also we'll monitor her hemoglobin 07/20/2022 Patient back to her normal self, fully awake and oriented, mildly lethargic, no new complaint Vitals are stable, labs are stable and low potassium replaced. Patient currently on Augmentin Patient is medically stable for transfer to geriatric psych unit pending placement, no place for today per caser up Discussed with staff to check a bladder scan 07/22. Patient seen and examined. Vital signs stable. Patient is very tearful. States she is anxious. 07/23. Patient seen and examined. Labs reviewed,. No acute issues overnight. Patient keen to go to inpatient psych. Stated that she needs to get better 07/24. Patient seen and examined. Vital signs stable. Sitter at the bedside. No acute issues overnight 07/25. Patient seen and examined. Patient is a very friendly person, currently in pleasant mood. Denies any auditory or visual visual hallucinations 07/26. Patient seen and examined. Sitter at the bedside. No acute issues overnight 07/27. Patient seen and examined. Patient is stable for discharge. Repeat clinical cert done this morning PHYSICAL EXAMINATION: GENERAL: The patient is alert and oriented x3, not in any acute distress. Well developed, well nourished. HEENT: Pupils are round and equally reacting to light. EOMI. No scleral icterus. No conjunctival pallor. Normocephalic, atraumatic. No pharyngeal erythema. No thyromegaly. CARDIOVASCULAR: S1 and S2 present. No murmurs, rubs, or gallops. PULMONARY: Chest is clear to auscultation, no wheezing or crackles. ABDOMEN: Soft, nontender, nondistended, normoactive bowel sounds. No palpable organomegaly. MUSCULOSKELETAL: No joint swelling or deformity. EXTREMITIES: No cyanosis, clubbing, or pedal edema. NEUROLOGICAL: Gross neurological examination did not reveal any focal deficits. SKIN: No rashes. Patient Condition at Discharge: Stable Plan - Discharge Summary New Discharge Prescriptions: New Amoxic-Pot Clav 875-125Mg [Augmentin 875-125] 1 each PO Q12HR 5 Days #10 tab Acetaminophen Tab [Tylenol] 325 mg PO Q6HR PRN tab PRN Reason: Fever And/ Or Pain Continue lisinopriL [Zestril] 10 mg PO BID Montelukast Sodium [Singulair] 10 mg PO HS Albuterol Sulfate [Albuterol Sulfate Hfa] 2 puff INHALATION RT-QID PRN PRN Reason: Shortness Of Breath Levothyroxine Sodium [Synthroid] 88 mcg PO DAILY@1200 Multivit-Min/Iron/Folic/Lutein [Centrum Silver Women Tablet] 1 tab PO DAILY@1200 Omeprazole 20 mg PO DAILY Pravastatin Sodium [Pravachol] 20 mg PO HS Alendronate Sodium [Fosamax] 70 mg PO AHMADI amLODIPine [Norvasc] 10 mg PO DAILY Cholecalciferol [Vitamin D3 (25 Mcg = 1000 Iu)] 50 mcg PO Q2D@1200 Budesonide/Formoterol Fumarate [Symbicort 80-4.5 Mcg Inhaler] 2 puff INHALATION RT-BID Folic Acid 0.8 mg PO DAILY@1200 Discontinued Loratadine [Claritin] 10 mg PO DAILY QUEtiapine FUMARATE [SEROquel XR] 400 mg PO HS L.acidoph,Paracasei, B.lactis [Probiotic] 1 cap PO DAILY@1200 Discharge Medication List lisinopriL [Zestril] 10 mg PO BID 06/20/17 [History] Albuterol Sulfate [Albuterol Sulfate Hfa] 2 puff INHALATION RT-QID PRN 03/12/20 [History] Levothyroxine Sodium [Synthroid] 88 mcg PO DAILY@1200 03/12/20 [History] Montelukast Sodium [Singulair] 10 mg PO HS 03/12/20 [History] Multivit-Min/Iron/Folic/Lutein [Centrum Silver Women Tablet] 1 tab PO DAILY@1200 03/12/20 [History] Omeprazole 20 mg PO DAILY 03/12/20 [History] Alendronate Sodium [Fosamax] 70 mg PO AHMADI 01/23/22 [History] Pravastatin Sodium [Pravachol] 20 mg PO HS 01/23/22 [History] amLODIPine [Norvasc] 10 mg PO DAILY 03/07/22 [History] Budesonide/Formoterol Fumarate [Symbicort 80-4.5 Mcg Inhaler] 2 puff INHALATION RT-BID 07/15/22 [History] Cholecalciferol [Vitamin D3 (25 Mcg = 1000 Iu)] 50 mcg PO Q2D@1200 07/15/22 [History] Folic Acid 0.8 mg PO DAILY@1200 07/15/22 [History] Acetaminophen Tab [Tylenol] 325 mg PO Q6HR PRN tab 07/21/22 [Rx] Amoxic-Pot Clav 875-125Mg [Augmentin 875-125] 1 each PO Q12HR 5 Days #10 tab 07/21/22 [Rx] Follow up Appointment(s)/Referral(s): Dez Bowen DO [Primary Care Provider] - 1-2 days Kristopher Guzmán MD [Medical Doctor] - 1 Week (Neurologist) Telly Jimenez MD [STAFF PHYSICIAN] - 1 Week (Electrical Contractor) Patient Instructions/Handouts: Seizure/Epilepsy Discharge Instructions & Follow-Up Activity/Diet/Wound Care/Special Instructions: Patient to be transferred to geriatric psych unit Discharge Disposition: OTHER INSTITUTION NOT DEFINED
[2022-07-27 15:18] VITALS: BP 145/94; PULSE 57; RESP 18; TEMP 97.9
== END 2022-07-27 17:55 | DRG 917 ==
LOC: EC 08:27 → 1SOBS 10:38 → 3SCARD 13:13 → 2SICU 07-16 04:40 → 6NMEDSUR 07-20 06:42 → 2SICU 07-20 06:43 → 3SCARD 07-22 11:32 → 4SSUR 07-24 17:19 → 3SCARD 07-24 17:20 → 4SSUR 07-24 18:51
PROVIDERS: ADMIT Hospitalist; ATTEND Hospitalist
DX: T43.592A Poisoning by other antipsychotics and neuroleptics, intentional self-harm, initial encounter (principal); G92.8 Other toxic encephalopathy; J96.01 Acute respiratory failure with hypoxia; J69.0 Pneumonitis due to inhalation of food and vomit; F31.30 Bipolar disorder, current episode depressed, mild or moderate severity, unspecified; R56.9 Unspecified convulsions; I95.9 Hypotension, unspecified; J44.9 Chronic obstructive pulmonary disease, unspecified; F60.3 Borderline personality disorder; G31.9 Degenerative disease of nervous system, unspecified; Z20.822 Contact with and (suspected) exposure to COVID-19; G47.00 Insomnia, unspecified; I49.1 Atrial premature depolarization; F90.9 Attention-deficit hyperactivity disorder, unspecified type; R33.9 Retention of urine, unspecified; I10 Essential (primary) hypertension; E03.9 Hypothyroidism, unspecified; E78.5 Hyperlipidemia, unspecified; K21.9 Gastro-esophageal reflux disease without esophagitis; M19.90 Unspecified osteoarthritis, unspecified site; Z79.83 Long term (current) use of bisphosphonates; Z79.890 Hormone replacement therapy; Z79.51 Long term (current) use of inhaled steroids; Z79.899 Other long term (current) drug therapy; Z91.51 Personal history of suicidal behavior; Z87.891 Personal history of nicotine dependence; Z98.84 Bariatric surgery status; Z96.642 Presence of left artificial hip joint; Z96.641 Presence of right artificial hip joint; Y92.009 Unspecified place in unspecified non-institutional (private) residence as the place of occurrence of the external cause; Z88.5 Allergy status to narcotic agent; Z88.8 Allergy status to other drugs, medicaments and biological substances
CPT/HCPCS: 36415; 36600; 70450; 71045; 71260; 80048; 80053; 80143; 80179; 80306; 80320; 81001; 82550; 82553; 82607; 82746; 82805; 83735; 83874; 84132; 84443; 85025; 87635; 93005; 94760; 95816; 96361; 96374; 96375; 99285

== ENCOUNTER 2023-01-14 10:52 | Inpatient (IN) | payer MEDICARE ==
[2023-01-14] MEDS ORDERED: NITROGLYCERIN OINT 1 INCH/GM PACKET TOPICAL STA (11:20)
--- NOTE | 2023-01-14 11:31 | ED ---
General Adult HPI - General Chief complaint: Chest Pain Stated complaint: Chest Pain Time Seen by Provider: 01/14/23 11:05 Source: patient, RN notes reviewed, old records reviewed Mode of arrival: ambulatory Limitations: no limitations - History of Present Illness Initial comments: This is a 77-year-old female who presents emergency Department complaining of chest pain started about 6:00 this morning when she woke up. Patient states it hurts take a deep breath. Patient states she has a history of atrial fibrillation but no history of any problems. Patient states she does have high blood pressure high cholesterol she is also on eliquis for the A. fib. Patient has not noticed any increased shortness of breath. Patient denies any radiation of the pain to the back of the arm to the neck. Patient denies any fever chills or cough. Patient denies any leg swelling or calf tenderness. Patient denies abdominal pain patient denies nausea or vomiting. Patient denies any lightheadedness dizziness. patient continues to have chest pain currently - Related Data Home Medications Medication Instructions Recorded Confirmed lisinopriL [Zestril] 10 mg PO BID 06/20/17 07/15/22 Albuterol Sulfate [Albuterol 2 puff INHALATION RT-QID PRN 03/12/20 07/15/22 Sulfate Hfa] Levothyroxine Sodium [Synthroid] 88 mcg PO DAILY@1200 03/12/20 07/15/22 Montelukast Sodium [Singulair] 10 mg PO 03/12/20 07/15/22 Multivit-Min/Iron/Folic/Lutein 1 tab PO DAILY@1200 03/12/20 07/15/22 [Centrum Silver Women Tablet] Omeprazole 20 mg PO DAILY 03/12/20 07/15/22 Alendronate Sodium [Fosamax] 70 mg PO AHMADI 01/23/22 07/15/22 Pravastatin Sodium [Pravachol] 20 mg PO 01/23/22 07/15/22 amLODIPine [Norvasc] 10 mg PO DAILY 03/07/22 07/15/22 Budesonide/Formoterol Fumarate 2 puff INHALATION RT-BID 07/15/22 07/15/22 [Symbicort 80-4.5 Mcg Inhaler] Cholecalciferol [Vitamin D3 (25 50 mcg PO Q2D@1200 07/15/22 07/15/22 Mcg = 1000 Iu)] Folic Acid 0.8 mg PO DAILY@1200 07/15/22 07/15/22 Previous Rx's Medication Instructions Recorded Acetaminophen Tab [Tylenol] 325 mg PO Q6HR PRN tab 07/21/22 Amoxic-Pot Clav 875-125Mg 1 each PO Q12HR 5 Days #10 tab 07/21/22 [Augmentin 875-125] Allergies Allergy/AdvReac Type Severity Reaction Status Date / Time spironolactone Allergy ANXIETY Verified 07/15/22 12:53 [From Aldactone] AND DEPRESSION buspirone [From BuSpar] AdvReac Insomnia Verified 07/15/22 16:16 fluticasone furoate AdvReac Unknown Verified 01/14/23 11:05 [From Trelegy Ellipta] lurasidone [From Latuda] AdvReac Unknown Verified 01/14/23 11:05 morphine AdvReac Confusion Verified 07/15/22 12:53 Opioids - Morphine Analogues AdvReac Confusion Verified 07/15/22 12:53 Opioids-Meperidine and AdvReac Confusion Verified 07/15/22 12:53 Related umeclidinium AdvReac Unknown Verified 01/14/23 11:05 [From Trelegy Ellipta] vilanterol AdvReac Unknown Verified 01/14/23 11:05 [From Trelegy Ellipta] OPIATES AdvReac Unknown AGITATION Uncoded 07/15/22 12:53 Review of Systems ROS Statement: Those systems with pertinent positive or pertinent negative responses have been documented in the HPI. ROS Other: All systems not noted in ROS Statement are negative. Past Medical History Past Medical History: Asthma, GERD/Reflux, Hyperlipidemia, Hypertension, Osteoarthritis (OA), Thyroid Disorder Additional Past Medical History / Comment(s): Insomnia, past migraines,PAST HYPERTENSION , sinus problems at times,HIP DISLOCATION X20, legally blind Lt eye History of Any Multi-Drug Resistant Organisms: None Reported Past Surgical History: Bariatric Surgery, Joint Replacement, Orthopedic Surgery, Tubal Ligation Additional Past Surgical History / Comment(s): 2003 lap band, panniculectomy, R hip ORIF/total arthroplasty, L hip arthroplasty x 2, r knee ACL repair and total right arthroplasty, R thumb sx, D&Cs, EGDs/colonoscopies, R breast benign bx. EGD Past Anesthesia/Blood Transfusion Reactions: No Reported Reaction Past Psychological History: ADD/ADHD, Anxiety, Bipolar, Depression Smoking Status: Former smoker Past Alcohol Use History: Occasional Past Drug Use History: None Reported - Past Family History Mother History Unknown: Yes Family Medical History: Cancer Additional Family Medical History / Comment(s): BLADDER CA- AT 70 YEARS OLD. Father History Unknown: Yes Family Medical History: Coronary Artery Disease (CAD), Myocardial Infarction (ID) Additional Family Medical History / Comment(s): AT 60 YRS OLD General Exam - General Exam Comments Initial Comments: GENERAL: Patient is well-developed and well-nourished. Patient is nontoxic and well- hydrated and is in mild distress. ENT: Neck is soft and supple. No significant lymphadenopathy is noted. Oropharynx is clear. Moist mucous membranes. Neck has full range of motion without eliciting any pain. EYES: The sclera were anicteric and conjunctiva were pink and moist. Extraocular movements were intact and pupils were equal round and reactive to light. Eyelids were unremarkable. PULMONARY: Unlabored respirations. Good breath sounds bilaterally. No audible rales rhonchi or wheezing was noted. CARDIOVASCULAR: There is a regular rate and rhythm without any murmurs gallops or rubs. ABDOMEN: Soft and nontender with normal bowel sounds. SKIN: Skin is clear with no lesions or rashes and otherwise unremarkable. NEUROLOGIC: Patient is alert and oriented x3. Cranial nerves II through XII are grossly intact. Motor and sensory are also intact. Normal speech, volume and content. Symmetrical smile. MUSCULOSKELETAL: Normal extremities with adequate strength and full range of motion. No lower extremity swelling or edema. No calf tenderness. LYMPHATICS: No significant lymphadenopathy is noted PSYCHIATRIC: Normal psychiatric evaluation. Limitations: no limitations Course Vital Signs 01/14/23 01/14/23 01/14/23 11:01 11:39 11:40 Temperature 98.7 F Pulse Rate 90 89 Respiratory 18 20 20 Rate Blood Pressure 98/67 115/79 O2 Sat by Pulse 95 96 Oximetry 01/14/23 13:15 Temperature Pulse Rate 102 H Respiratory 20 Rate Blood Pressure 160/91 O2 Sat by Pulse 94 L Oximetry Medical Decision Making - Medical Decision Making EKG was interpreted by myself shows atrial fibrillation at 94 bpm QRS is 92 QT interval is 281 QTC is 333. Patient's EKG shows no ST segment elevation or depression. Was pt. sent in by a medical professional or institution (, AURELIO, KEELER POLYGRAPH OPERATOR, urgent care, hospital, or prison...) When possible be specific @ -No Did you speak to anyone other than the patient for history (EMS, parent, family, police, friend...)? What history was obtained from this source @ - did quite a bit of the history Did you review nursing and triage notes (agree or disagree)? Why? @ -I reviewed and agree with nursing and triage notes Were old charts reviewed (outside hosp., previous admission, EMS record, old EKG, old radiological studies, urgent care reports/EKG's, prison records)? Report findings @ -I reviewed prior charts prior lab work in prior EKGs in this patient Differential Diagnosis (chest pain, altered mental status, abdominal pain women, abdominal pain men, vaginal bleeding, weakness, fever, dyspnea, syncope, headache, dizziness, GI bleed, back pain, seizure, CVA, palpatations, mental health, musculoskeletal)? @ -Differential Chest Pain: Stable Angina, Unstable Angina, STEMI, NSTEMI Aortic Dissection, Pneumothorax, Musculoskeletal, Esophageal Spasm GERD, Cholecystitis, Pancreatitis, Zoster, this is not meant to be an all-inclusive list. EKG interpreted by me (3pts min.). @ -As above X-rays interpreted by me (1pt min.). @ -X-ray shows no acute abnormality CT interpreted by me (1pt min.). @ -None done U/S interpreted by me (1pt. min.). @ -None done What testing was considered but not performed or refused? (CT, X-rays, U/S, labs)? Why? @ -None What meds were considered but not given or refused? Why? @ -None Did you discuss the management of the patient with other professionals (professionals i.e. , AURELIO, KEELER POLYGRAPH OPERATOR, lab, RT, psych nurse, social scientist, naval designer, teacher, correction officer city or county jail, pillowcase turner)? Give summary @ -I spoke with Dr. Guerra he agreed to admit the patient admitted the patient I consult cardiology Was smoking cessation discussed for >3mins.? @ -No Was critical care preformed (if so, how long)? @ -No Were there social determinants of health that impacted care today? How? (Homele ssness, low income, unemployed, alcoholism, drug addiction, transportation, low edu. Level, literacy, decrease access to med. care, assisted, rehab)? @ -No Was there de-escalation of care discussed even if they declined (Discuss DNR or withdrawal of care, Hospice)? DNR status @ -No What co-morbidities impacted this encounter? (DM, HTN, Smoking, COPD, CAD, Cancer, CVA, ARF, Chemo, Hep., AIDS, mental health diagnosis, sleep apnea, morbid obesity)? @ -None Was patient admitted / discharged? Hospital course, mention meds given and route, prescriptions, significant lab abnormalities, going to OR and other pertinent info. @ -Patient's lab work came back with a negative troponin chest x-ray was normal. Patient has significant risk factors so [facility] I will consult cardiology. Undiagnosed new problem with uncertain prognosis? @ -No Drug Therapy requiring intensive monitoring for toxicity (Heparin, Nitro, Insulin, Cardizem)? @ -No Were any procedures done? @ -No Diagnosis/symptom? @ -Chest pain Acute, or Chronic, or Acute on Chronic? @ -Acute Uncomplicated (without systemic symptoms) or Complicated (systemic symptoms)? @ -Complicated Side effects of treatment? @ -No Exacerbation, Progression, or Severe Exacerbation? @ -No Poses a threat to life or bodily function? How? (Chest pain, USA, ID, pneumonia, PE, COPD, DKA, ARF, appy, cholecystitis, CVA, Diverticulitis, Homicidal, Suicida l, threat to staff... and all critical care pts) @ -Yes this could lead to an ID hypoxia and end organ dysfunction - Lab Data Result diagrams: 01/14/23 11:20 01/14/23 11:20 Lab Results 01/14/23 01/14/23 01/14/23 Range/Units 11:20 11:20 11:20 WBC 11.4 H (3.8-10.6) k/uL RBC 3.68 L (3.80-5.40) m/uL Hgb 10.6 L (11.4-16.0) gm/dL Hct 32.7 L (34.0-46.0) % MCV 88.9 (80.0-100.0) fL MCH 28.7 (25.0-35.0) pg MCHC 32.3 (31.0-37.0) g/dL RDW 13.3 (11.5-15.5) % Plt Count 217 (150-450) k/uL MPV 9.8 Neutrophils % 86 % Lymphocytes % 7 % Monocytes % 5 % Eosinophils % 2 % Basophils % 0 % Neutrophils # 9.8 H (1.3-7.7) k/uL Lymphocytes # 0.7 L (1.0-4.8) k/uL Monocytes # 0.5 (0-1.0) k/uL Eosinophils # 0.2 (0-0.7) k/uL Basophils # 0.0 (0-0.2) k/uL PT 9.7 (9.0-12.0) sec INR 0.9 (<1.2) APTT 24.0 (22.0-30.0) sec Sodium 135 L (137-145) mmol/L Potassium 4.7 (3.5-5.1) mmol/L Chloride 103 (98-107) mmol/L Carbon Dioxide 22 (22-30) mmol/L Anion Gap 10 mmol/L BUN 33 H (7-17) mg/dL Creatinine 0.95 (0.52-1.04) mg/dL Est GFR (CKD-EPI)AfAm 67 (>60 ml/min/1.73 sqM) Est GFR (CKD-EPI)NonAf 58 (>60 ml/min/1.73 sqM) Glucose 114 H (74-99) mg/dL Calcium 9.1 (8.4-10.2) mg/dL Magnesium 2.1 (1.6-2.3) mg/dL Total Bilirubin 0.4 (0.2-1.3) mg/dL AST 23 (14-36) U/L ALT 17 (4-34) U/L Alkaline Phosphatase 70 (38-126) U/L Troponin I (0.000-0.034) ng/mL NT-Pro-B Natriuret Pep pg/mL Total Protein 7.0 (6.3-8.2) g/dL Albumin 3.8 (3.5-5.0) g/dL Amylase 73 (30-110) U/L 01/14/23 01/14/23 Range/Units 11:20 11:20 WBC (3.8-10.6) k/uL RBC (3.80-5.40) m/uL Hgb (11.4-16.0) gm/dL Hct (34.0-46.0) % MCV (80.0-100.0) fL MCH (25.0-35.0) pg MCHC (31.0-37.0) g/dL RDW (11.5-15.5) % Plt Count (150-450) k/uL MPV Neutrophils % % Lymphocytes % % Monocytes % % Eosinophils % % Basophils % % Neutrophils # (1.3-7.7) k/uL Lymphocytes # (1.0-4.8) k/uL Monocytes # (0-1.0) k/uL Eosinophils # (0-0.7) k/uL Basophils # (0-0.2) k/uL PT (9.0-12.0) sec INR (<1.2) APTT (22.0-30.0) sec Sodium (137-145) mmol/L Potassium (3.5-5.1) mmol/L Chloride (98-107) mmol/L Carbon Dioxide (22-30) mmol/L Anion Gap mmol/L BUN (7-17) mg/dL Creatinine (0.52-1.04) mg/dL Est GFR (CKD-EPI)AfAm (>60 ml/min/1.73 sqM) Est GFR (CKD-EPI)NonAf (>60 ml/min/1.73 sqM) Glucose (74-99) mg/dL Calcium (8.4-10.2) mg/dL Magnesium (1.6-2.3) mg/dL Total Bilirubin (0.2-1.3) mg/dL AST (14-36) U/L ALT (4-34) U/L Alkaline Phosphatase (38-126) U/L Troponin I <0.012 (0.000-0.034) ng/mL NT-Pro-B Natriuret Pep 553 pg/mL Total Protein (6.3-8.2) g/dL Albumin (3.5-5.0) g/dL Amylase (30-110) U/L Disposition Clinical Impression: Chest pain Disposition: ADMITTED IP TO THIS HOSP Is patient prescribed a controlled substance at d/c from ED?: No Referrals: Dez Bowen DO [Primary Care Provider] - 1-2 days Time of Disposition: 14:00
[2023-01-14 11:47] LABS: Basophils % (A) 0 %; Eosinophils # (A) 0.2 k/uL (0-0.7); Eosinophils % (A) 2 %; HCT 32.7 % (34.0-46.0); HGB 10.6 gm/dL (11.4-16.0); Lymphocytes # (A) 0.7 k/uL (1.0-4.8); Lymphocytes % (A) 7 %; MCH 28.7 pg (25.0-35.0); MCHC 32.3 g/dL (31.0-37.0); MCV 88.9 fL (80.0-100.0); Mean Platelet Volume 9.8; Monocytes # (A) 0.5 k/uL (0-1.0); Monocytes % (A) 5 %; Neutrophils # (A) 9.8 k/uL (1.3-7.7); Neutrophils % (A) 86 %; Platelet Count 217 k/uL (150-450); RBC 3.68 m/uL (3.80-5.40); RDW 13.3 % (11.5-15.5); WBC 11.4 k/uL (3.8-10.6)
[2023-01-14 12:06] LABS: INR 0.9 (<1.2); Prothrombin Time 9.7 sec (9.0-12.0)
--- NOTE | 2023-01-14 12:06 | XR ---
EXAMINATION TYPE: XR chest 2V DATE OF EXAM: 01/14/2023 11:51 AM COMPARISON: Chest radiographs from 07/17/2022 TECHNIQUE: XR chest 2V Frontal and lateral views of the chest. CLINICAL INDICATION:Female, 77 years old with history of Chest Pain; FINDINGS: Lungs/Pleura: Pleural effusion or pneumothorax. Bibasilar patchy airspace opacities that are apprecia venessa on the lateral view. Pulmonary vascularity: Unremarkable. Heart/mediastinum: Cardiomediastinal silhouette is prominent in size. Atherosclerotic calcifications are seen in the aorta. Musculoskeletal: No acute osseous pathology. Bilateral shoulder arthropathy. IMPRESSION: Bibasilar patchy airspace opacities which may represent atelectasis versus infiltrate.
[2023-01-14 12:54] LABS: ALT 17 U/L (4-34); AST 23 U/L (14-36); African American GFR (CKD) 67 (>60 ml/min/1.73 sqM); Albumin 3.8 g/dL (3.5-5.0); Alkaline Phosphatase 70 U/L (38-126); Amylase 73 U/L (30-110); Anion Gap 10 mmol/L; Blood Urea Nitrogen 33 mg/dL (7-17); Calcium 9.1 mg/dL (8.4-10.2); Carbon Dioxide 22 mmol/L (22-30); Chloride 103 mmol/L (98-107); Glucose 114 mg/dL (74-99); Magnesium 2.1 mg/dL (1.6-2.3); Non-African American GFR(CKD) 58 (>60 ml/min/1.73 sqM); Potassium 4.7 mmol/L (3.5-5.1); Sodium 135 mmol/L (137-145); Total Bilirubin 0.4 mg/dL (0.2-1.3)
[2023-01-14] MEDS ORDERED: HYDROmorphone 0.5 MG/0.5 ML SYRINGE IM STA (13:06)
[2023-01-14] MEDS ORDERED: LORazepam 2 MG/ML INJ IV STA (13:07)
[2023-01-14] MEDS ORDERED: NITROGLYCERIN SL TABS 0.4 MG TAB SUBLINGUAL PRN (14:18)
[2023-01-14] MEDS: NITROGLYCERIN OINT 1 INCH/GM PACKET TOPICAL SCH ×2 (18:36→23:04)
[2023-01-14] MEDS: ACETAMINOPHEN TAB 325 MG TAB PO PRN (18:44)
[2023-01-14] MEDS: MONTELUKAST 10 MG TAB PO SCH (20:27)
[2023-01-14] MEDS: PRAVASTATIN SODIUM 40 MG TAB PO SCH (20:27)
[2023-01-14] MEDS: lisinopriL 10 MG TAB PO SCH (20:27)
[2023-01-14] MEDS: FLECAINIDE 50 MG TAB PO SCH (20:27)
[2023-01-14] MEDS: QUEtiapine 100 MG TAB PO SCH (20:27)
[2023-01-14] MEDS: APIXABAN 5 MG TAB PO SCH (20:27)
[2023-01-14] MEDS: DIVALPROEX 500 MG TABLET.DR PO SCH (20:27)
[2023-01-14] MEDS: ALBUTEROL HFA INHALER INHALATION PRN (21:33)
[2023-01-14] MEDS: SYMBICORT 80-4.5 MCG INHALER INHALATION SCH (21:34)
--- NOTE | 2023-01-15 00:23 | P.HPIM ---
History of Present Illness H&P Date: 01/14/23 Chief Complaint: Chest pain Patient is a 77-year-old female with known history of hypertension, hyperlipidemia, asthma, GERD and hypothyroidism and migraine headaches, anxiety /depression and bipolar disorder and prior history of smoking was brought to the hospital with complaints of chest pain started around 6 AM this morning when she woke up from bed. Patient states that pain in the left retrosternal and hurts with deep breathing. Patient is currently on anticoagulation with Eliquis for atrial fibrillation. Patient states that pain radiating to the left and to the neck. Also associated nausea and dizziness. Patient is a poor historian. Patient was given Dilaudid in the ER and Nitropaste was applied. Patient currently denies any complaints of chest pain. Denies any leg swelling. No calf tenderness. Patient was recently admitted to the hospital in July 2022 with intentional Seroquel overdose with suicide attempt, acute hypoxic respiratory failure with improvement and transferred to geriatric inpatient psychiatric unit. Chest x-ray showed bibasilar patchy airspace opacities which may represent atelectasis versus infiltrate. EKG showed atrial fibrillation. Laboratory data showed WBC 11.4 hemoglobin 10.6 and platelets 217 Sodium 135 potassium 4.7 chloride 103 bicarb is 22 BUN 33 and creatinine 0.95 Blood sugar is 114 Liver enzymes are elevated, troponin x3 negative and proBNP is 553. Amylase level 73 Review of Systems Complete review of systems could not be obtained from the patient except as per HPI. Past Medical History Past Medical History: Asthma, GERD/Reflux, Hyperlipidemia, Hypertension, Osteoarthritis (OA), Thyroid Disorder Additional Past Medical History / Comment(s): Insomnia, past migraines,PAST HYPERTENSION , sinus problems at times,HIP DISLOCATION X20, legally blind Lt eye History of Any Multi-Drug Resistant Organisms: None Reported Past Surgical History: Bariatric Surgery, Joint Replacement, Orthopedic Surgery, Tubal Ligation Additional Past Surgical History / Comment(s): 2004 lap band, panniculectomy, R hip ORIF/total arthroplasty, L hip arthroplasty x 2, r knee ACL repair and total right arthroplasty, R thumb sx, D&Cs, EGDs/colonoscopies, R breast benign bx. EGD Past Anesthesia/Blood Transfusion Reactions: No Reported Reaction Past Psychological History: ADD/ADHD, Anxiety, Bipolar, Depression Smoking Status: Former smoker Past Alcohol Use History: Occasional Past Drug Use History: None Reported - Past Family History Mother History Unknown: Yes Family Medical History: Cancer Additional Family Medical History / Comment(s): BLADDER CA- AT 70 YEARS OLD. Father History Unknown: Yes Family Medical History: Coronary Artery Disease (CAD), Myocardial Infarction (CA) Additional Family Medical History / Comment(s): AT 60 YRS OLD Medications and Allergies Home Medications Medication Instructions Recorded Confirmed Type Albuterol Sulfate [Albuterol 2 puff INHALATION RT-QID PRN 03/12/20 01/14/23 History Sulfate Hfa] Levothyroxine Sodium [Synthroid] 88 mcg PO DAILY@1200 03/12/20 01/14/23 History Montelukast Sodium [Singulair] 10 mg PO 03/12/20 01/14/23 History Multivit-Min/Iron/Folic/Lutein 1 tab PO DAILY@1200 03/12/20 01/14/23 History [Centrum Silver Women Tablet] Omeprazole 20 mg PO DAILY 03/12/20 01/14/23 History Alendronate Sodium [Fosamax] 70 mg PO AHMADI 01/23/22 01/14/23 History Budesonide/Formoterol Fumarate 2 puff INHALATION RT-BID 07/15/22 01/14/23 History [Symbicort 80-4.5 Mcg Inhaler] Cholecalciferol [Vitamin D3 (25 50 mcg PO Q2D@1200 07/15/22 01/14/23 History Mcg = 1000 Iu)] Folic Acid 0.8 mg PO DAILY@1200 07/15/22 01/14/23 History Apixaban [Eliquis] 5 mg PO BID 01/14/23 01/14/23 History Diltiazem Cd [Cardizem CD] 240 mg PO DAILY 01/14/23 01/14/23 History Divalproex Sodium [Depakote] 500 mg PO 01/14/23 01/14/23 History Flecainide [Tambocor] 50 mg PO BID 01/14/23 01/14/23 History L.acidoph,Paracasei, B.lactis 1 cap PO DAILY@1200 01/14/23 01/14/23 History [Probiotic] Loratadine 10 mg PO DAILY 01/14/23 01/14/23 History Pravastatin Sodium [Pravachol] 40 mg PO 01/14/23 01/14/23 History QUEtiapine [SEROquel] 50 mg PO BID 01/14/23 01/14/23 History QUEtiapine [SEROquel] 100 mg PO HS 01/14/23 01/14/23 History buPROPion [Wellbutrin] 75 mg PO DAILY 01/14/23 01/14/23 History lisinopriL [Zestril] 10 mg PO BID 01/14/23 01/14/23 History traZODone HCL [Desyrel] 50 mg PO HS PRN 01/14/23 01/14/23 History Allergies Allergy/AdvReac Type Severity Reaction Status Date / Time buspirone [From BuSpar] AdvReac Insomnia Verified 01/14/23 15:48 fluticasone furoate AdvReac Unknown Verified 01/14/23 15:48 [From Trelegy Ellipta] lurasidone [From Latuda] AdvReac Unknown Verified 01/14/23 15:48 morphine AdvReac Confusion Verified 01/14/23 15:48 Opioids - Morphine Analogues AdvReac Confusion Verified 01/14/23 15:48 Opioids-Meperidine and AdvReac Confusion Verified 01/14/23 15:48 Related spironolactone AdvReac ANXIETY Verified 01/14/23 15:48 [From Aldactone] AND DEPRESSION umeclidinium AdvReac Unknown Verified 01/14/23 15:48 [From Trelegy Ellipta] vilanterol AdvReac Unknown Verified 01/14/23 15:48 [From Trelegy Ellipta] OPIATES AdvReac Unknown AGITATION Uncoded 01/14/23 15:48 Physical Exam Vitals: Vital Signs Temp Pulse Resp BP Pulse Ox 01/14/23 15:22 108 H 18 118/88 98 01/14/23 14:00 114 H 20 118/79 95 01/14/23 13:15 102 H 20 160/91 94 L 01/14/23 11:40 20 01/14/23 11:39 89 20 115/79 96 01/14/23 11:01 98.7 F 90 18 98/67 95 Intake and Output 01/14/23 01/14/23 01/14/23 06:59 14:59 22:59 Other: Weight 63.503 kg PHYSICAL EXAMINATION: Patient is lying in the bed. Awake and alert but drowsy and lethargic. HEENT: Normocephalic. Neck is supple. Pupils reactive. Nostrils clear. Oral cavity is moist. Neck reveals no JVD, carotid bruits, or thyromegaly. CHEST EXAMINATION: Trachea is central. Symmetrical expansion. Bibasilar diminis hed sounds. No wheezing.. CARDIAC: Normal S1, S2 with no gallops. No murmurs ABDOMEN: Soft. Bowel sounds present. Nontender. No organomegaly. No abdominal bruits. Extremities: reveal no edema. No clubbing or cyanosis Neurologically awake, alert, oriented x2-3. Able to move extremities. No gross focal deficits noted Skin: No rash or skin lesions. Psychiatric: Coperative. Nonsuicidal, could not be assessed completely. Musculoskeletal: No joint swelling or deformity. Results CBC & Chem 7: 01/14/23 11:20 01/14/23 11:20 Labs: Abnormal Lab Results - Last 24 Hours (Table) 01/14/23 01/14/23 Range/Units 11:20 11:20 WBC 11.4 H (3.8-10.6) k/uL RBC 3.68 L (3.80-5.40) m/uL Hgb 10.6 L (11.4-16.0) gm/dL Hct 32.7 L (34.0-46.0) % Neutrophils # 9.8 H (1.3-7.7) k/uL Lymphocytes # 0.7 L (1.0-4.8) k/uL Sodium 135 L (137-145) mmol/L BUN 33 H (7-17) mg/dL Glucose 114 H (74-99) mg/dL Thrombosis Risk Factor Assmnt - DVT/VTE Prophylaxis DVT/VTE Prophylaxis: Pharmacologic Prophylaxis ordered Assessment and Plan Assessment: Atypical chest pain. Rule out ACS. Pleuritic. Bibasilar infiltrate/atelectasis. Possible pneumonia. Recent history of Seroquel overdose/suicide attempt and hypoxic respiratory failure in July 2022 Atrial fibrillation on anticoagulation with Eliquis Hypertension. Currently hypotensive Hyperlipidemia Osteoarthritis Hypothyroidism GERD Asthma ADD/ADHD, anxiety bipolar disorder and depression Prior history of smoking History of multiple hip surgeries Plan: Patient will be continued on telemetry monitoring. Serial EKG and troponin x3. Symptomatic management for pain. Will be started on antibiotics ceftriaxone and doxycycline and follow-up procalcitonin level. WBC 11.4. Encourage incentive spirometry. Continue with Cardizem and flecainide and other home medications. Limit narcotic pain medications. Continue with albuterol elation and Symbicort and oxygen supplementation as needed. Follow-up closely. Cardiology was consulted for evaluation. Time with Patient: Greater than 30
[2023-01-15] MEDS: DOXYCYCLINE 100 MG CAP PO SCH ×2 (02:41→09:13)
[2023-01-15] MEDS: PANTOPRAZOLE 40 MG TABLET PO SCH (06:38)
[2023-01-15] MEDS: NITROGLYCERIN OINT 1 INCH/GM PACKET TOPICAL SCH (06:38)
[2023-01-15 06:41] LABS: Basophils % (A) 0 %; Eosinophils # (A) 0.2 k/uL (0-0.7); Eosinophils % (A) 2 %; HGB 9.8 gm/dL (11.4-16.0); Lymphocytes # (A) 1.2 k/uL (1.0-4.8); Lymphocytes % (A) 11 %; MCH 30.1 pg (25.0-35.0); MCHC 32.6 g/dL (31.0-37.0); MCV 92.3 fL (80.0-100.0); Mean Platelet Volume 9.2; Monocytes % (A) 9 %; Neutrophils # (A) 8.4 k/uL (1.3-7.7); Neutrophils % (A) 77 %; Platelet Count 251 k/uL (150-450); RBC 3.25 m/uL (3.80-5.40); RDW 13.2 % (11.5-15.5); WBC 10.9 k/uL (3.8-10.6)
[2023-01-15 07:05] LABS: African American GFR (CKD) 54 (>60 ml/min/1.73 sqM); Anion Gap 9 mmol/L; Blood Urea Nitrogen 36 mg/dL (7-17); Calcium 8.8 mg/dL (8.4-10.2); Carbon Dioxide 23 mmol/L (22-30); Chloride 102 mmol/L (98-107); Glucose 113 mg/dL (74-99); Non-African American GFR(CKD) 47 (>60 ml/min/1.73 sqM); Potassium 4.5 mmol/L (3.5-5.1); Sodium 134 mmol/L (137-145)
[2023-01-15] MEDS: SYMBICORT 80-4.5 MCG INHALER INHALATION SCH ×2 (08:36→20:53)
[2023-01-15] MEDS: ALBUTEROL HFA INHALER INHALATION PRN ×2 (08:36→16:11)
[2023-01-15] MEDS ORDERED: ASPIRIN 325 MG TAB PO SCH (09:00)
[2023-01-15] MEDS: lisinopriL 10 MG TAB PO SCH ×2 (09:12→20:01)
[2023-01-15] MEDS: APIXABAN 5 MG TAB PO SCH ×2 (09:12→20:02)
[2023-01-15] MEDS: DILTIAZEM CD 240 MG CAP.ER.24H PO SCH (09:12)
[2023-01-15] MEDS: FLECAINIDE 50 MG TAB PO SCH ×2 (09:12→20:02)
[2023-01-15] MEDS: buPROPion 75 MG TAB PO SCH (09:13)
[2023-01-15 11:17] LABS: Chol/HDL Ratio 2.16 Ratio; LDL Cholesterol,Calculated 60.9 mg/dL (0.0-131.0); VLDL Calculation 13.64 mg/dL (5.00-40.00)
[2023-01-15] MEDS ORDERED: NON FORMULARY DRUG (Multivit-Min/Iron/Folic/Lutein [Centrum Silver Women Tablet] 1 EACH Ta PO SCH (12:00)
--- NOTE | 2023-01-15 12:00 | P.CRDCN ---
History of Present Illness History of present illness: HISTORY OF PRESENT ILLNESS: This is a 77-year-old female with a past medical history significant for atrial fibrillation, asthma, hypertension, syncope, peripheral neuropathy, and depression. Patient follows in the office with Dr. De Leon. We have been asked to see the patient in consultation for chest pain. Patient examined at the bedside. Patient states she began having chest pain on while she was at [facility] with her . She states the pain continued over the weekend. She states there is nothing that really makes the pain better. She reports the pain is worse with deep inspiration. She also reports the pain is worse with chest wall palpation. She denied any radiation of the pain. Denied any nausea or vomiting. Denied any dizziness or lightheadedness. She denied any episodes of syncope. The patient has been treated for possible pneumonia. The patient was found to have leukocytosis and was febrile overnight. Patient states she is scheduled for outpatient cardioversion on January 19. * EKG reveals atrial fibrillation with controlled ventricular rate. No signs of acute ischemia. * Chest xray bibasilar patchy airspace opacities which may represent atelectasis versus infiltrate * Laboratory data: W BC 10.9. Hemoglobin 9.8. Platelet count 251. Sodium 134. Potassium 4.5. BUN 36. Creatinine 1.14. Troponin negative 3. ProBNP 553. * Current home cardiac medications include Eliquis 5mg BID, Cardizem 240 mg daily, Flecainide 50mg BID, Pravachol 40 mg at night, and lisinopril 10 mg twice a day * Most recent echocardiogram obtained in March 2020 revealing ejection fraction 60-65% with mild tricuspid regurgitation REVIEW OF SYSTEMS: At the time of my exam: CONSTITUTIONAL: Denies fever or chills. HEENT: Denies blurred vision, vision changes, or eye pain. Denies hemoptysis CARDIOVASCULAR: Denies chest pain. Denies orthopnea. Denies PND. Denies palpitations RESPIRATORY: Denies shortness of breath. GASTROINTESTINAL: Denies abdominal pain. Denies nausea or vomiting. HEMATOLOGIC: Denies bleeding disorders. GENITOURINARY: Denies any blood in urine. SKIN: Denies pruitis. Denies rash. PHYSICAL EXAM: VITAL SIGNS: Reviewed. GENERAL: Well-developed in no acute distress. HEENT: Head is normocephalic. Pupils are equal, round. Sclerae anicteric. Mucous membranes of the mouth are moist. Neck supple. No JVD or thyromegaly LUNGS: Respirations even and unlabored. Lungs essentially clear to auscultation bilaterally. HEART: Irregular rate and rhythm. S1 and S2 heard. ABDOMEN: Soft. Nondistended. Nontender. EXTREMITIES: Normal range of motion. No clubbing or cyanosis. Peripheral pulses intact. No lower extremity edema NEUROLOGIC: Awake and alert. Oriented x 3. ASSESSMENT: Chest pain, atypical, troponin negative 3, appears pleuritic Possible pneumonia Leukocytosis with fever Persistent atrial fibrillation Hypertension Hyperlipidemia Asthma Peripheral neuropathy PLAN: An acute coronary event has been ruled out Resume home cardiac medications Obtain 2-D echo to assess cardiac structure and function We will postpone patient's PABLITO/cardioversion secondary to fever and leukocytosis Further recommendations pending patient's course Nurse practitioner note has been reviewed by physician. Signing provider agrees with the documented findings, assessment, and plan of care. Past Medical History Past Medical History: Asthma, GERD/Reflux, Hyperlipidemia, Hypertension, Osteoarthritis (OA), Thyroid Disorder Additional Past Medical History / Comment(s): Insomnia, past migraines,PAST HYPERTENSION , sinus problems at times,HIP DISLOCATION X20, legally blind Lt eye History of Any Multi-Drug Resistant Organisms: None Reported Past Surgical History: Bariatric Surgery, Joint Replacement, Orthopedic Surgery, Tubal Ligation Additional Past Surgical History / Comment(s): 2004 lap band, panniculectomy, R hip ORIF/total arthroplasty, L hip arthroplasty x 2, r knee ACL repair and total right arthroplasty, R thumb sx, D&Cs, EGDs/colonoscopies, R breast benign bx. EGD Past Anesthesia/Blood Transfusion Reactions: No Reported Reaction Past Psychological History: ADD/ADHD, Anxiety, Bipolar, Depression Smoking Status: Former smoker Past Alcohol Use History: Occasional Past Drug Use History: None Reported - Past Family History Mother History Unknown: Yes Family Medical History: Cancer Additional Family Medical History / Comment(s): BLADDER CA- AT 70 YEARS OLD. Father History Unknown: Yes Family Medical History: Coronary Artery Disease (CAD), Myocardial Infarction ([place]) Additional Family Medical History / Comment(s): AT 60 YRS OLD Medications and Allergies Home Medications Medication Instructions Recorded Confirmed Type Albuterol Sulfate [Albuterol 2 puff INHALATION RT-QID PRN 03/12/20 01/14/23 History Sulfate Hfa] Levothyroxine Sodium [Synthroid] 88 mcg PO DAILY@1200 03/12/20 01/14/23 History Montelukast Sodium [Singulair] 10 mg PO HS 03/12/20 01/14/23 History Multivit-Min/Iron/Folic/Lutein 1 tab PO DAILY@1200 03/12/20 01/14/23 History [Centrum Silver Women Tablet] Omeprazole 20 mg PO DAILY 03/12/20 01/14/23 History Alendronate Sodium [Fosamax] 70 mg PO AHMADI 01/23/22 01/14/23 History Budesonide/Formoterol Fumarate 2 puff INHALATION RT-BID 07/15/22 01/14/23 History [Symbicort 80-4.5 Mcg Inhaler] Cholecalciferol [Vitamin D3 (25 50 mcg PO Q2D@1200 07/15/22 01/14/23 History Mcg = 1000 Iu)] Folic Acid 0.8 mg PO DAILY@1200 07/15/22 01/14/23 History Apixaban [Eliquis] 5 mg PO BID 01/14/23 01/14/23 History Diltiazem Cd [Cardizem CD] 240 mg PO DAILY 01/14/23 01/14/23 History Divalproex Sodium [Depakote] 500 mg PO HS 01/14/23 01/14/23 History Flecainide [Tambocor] 50 mg PO BID 01/14/23 01/14/23 History L.acidoph,Paracasei, B.lactis 1 cap PO DAILY@1200 01/14/23 01/14/23 History [Probiotic] Loratadine 10 mg PO DAILY 01/14/23 01/14/23 History Pravastatin Sodium [Pravachol] 40 mg PO HS 01/14/23 01/14/23 History QUEtiapine [SEROquel] 50 mg PO BID 01/14/23 01/14/23 History QUEtiapine [SEROquel] 100 mg PO HS 01/14/23 01/14/23 History buPROPion [Wellbutrin] 75 mg PO DAILY 01/14/23 01/14/23 History lisinopriL [Zestril] 10 mg PO BID 01/14/23 01/14/23 History traZODone HCL [Desyrel] 50 mg PO HS PRN 01/14/23 01/14/23 History Allergies Allergy/AdvReac Type Severity Reaction Status Date / Time buspirone [From BuSpar] AdvReac Insomnia Verified 01/14/23 15:48 fluticasone furoate AdvReac Unknown Verified 01/14/23 15:48 [From Trelegy Ellipta] lurasidone [From Latuda] AdvReac Unknown Verified 01/14/23 15:48 morphine AdvReac Confusion Verified 01/14/23 15:48 Opioids - Morphine Analogues AdvReac Confusion Verified 01/14/23 15:48 Opioids-Meperidine and AdvReac Confusion Verified 01/14/23 15:48 Related spironolactone AdvReac ANXIETY Verified 01/14/23 15:48 [From Aldactone] AND DEPRESSION umeclidinium AdvReac Unknown Verified 01/14/23 15:48 [From Trelegy Ellipta] vilanterol AdvReac Unknown Verified 01/14/23 15:48 [From Trelegy Ellipta] OPIATES AdvReac Unknown AGITATION Uncoded 01/14/23 15:48 Physical Exam Vitals: Vital Signs Temp Pulse Pulse Resp BP BP Pulse Ox 01/15/23 04:00 100.2 F H 78 18 97/65 92 L 01/15/23 02:00 18 01/14/23 23:04 96 18 84/56 94 L 01/14/23 21:34 95 01/14/23 19:57 98.3 F 94 18 91/56 96 01/14/23 17:12 99.9 F H 108 H 14 99/67 97 01/14/23 15:22 108 H 18 118/88 98 01/14/23 14:00 114 H 20 118/79 95 01/14/23 13:15 102 H 20 160/91 94 L 01/14/23 11:40 20 01/14/23 11:39 89 20 115/79 96 01/14/23 11:01 98.7 F 90 18 98/67 95 Intake and Output 01/14/23 01/15/23 01/15/23 22:59 06:59 14:59 Intake Total 10 Output Total 525 200 200 Balance -515 -200 -200 Intake: IV 10 Invasive Line 1 10 Output: Urine 525 200 200 Straight 525 200 Other: Voiding Method Bedside Commode # Voids 1 # Bowel Movements 1 Weight 63.503 kg Results 01/15/23 06:20 01/15/23 06:20 Cardiac Enzymes 01/14/23 01/14/23 01/14/23 Range/Units 11:20 11:20 14:49 AST 23 (14-36) U/L Troponin I <0.012 <0.012 (0.000-0.034) ng/mL 01/14/23 Range/Units 17:35 AST (14-36) U/L Troponin I <0.012 (0.000-0.034) ng/mL Coagulation 01/14/23 Range/Units 11:20 PT 9.7 (9.0-12.0) sec APTT 24.0 (22.0-30.0) sec CBC 01/14/23 01/15/23 Range/Units 11:20 06:20 WBC 11.4 H 10.9 H (3.8-10.6) k/uL RBC 3.68 L 3.25 L (3.80-5.40) m/uL Hgb 10.6 L 9.8 L (11.4-16.0) gm/dL Hct 32.7 L 30.0 L (34.0-46.0) % Plt Count 217 251 (150-450) k/uL Comprehensive Metabolic Panel 01/14/23 01/15/23 Range/Units 11:20 06:20 Sodium 135 L 134 L (137-145) mmol/L Potassium 4.7 4.5 (3.5-5.1) mmol/L Chloride 103 102 (98-107) mmol/L Carbon Dioxide 22 23 (22-30) mmol/L BUN 33 H 36 H (7-17) mg/dL Creatinine 0.95 1.14 H (0.52-1.04) mg/dL Glucose 114 H 113 H (74-99) mg/dL Calcium 9.1 8.8 (8.4-10.2) mg/dL AST 23 (14-36) U/L ALT 17 (4-34) U/L Alkaline Phosphatase 70 (38-126) U/L Total Protein 7.0 (6.3-8.2) g/dL Albumin 3.8 (3.5-5.0) g/dL Current Medications Generic Name Dose Route Start Last Admin Trade Name Jamaq PRN Reason Stop Dose Admin Acetaminophen 650 mg 01/14/23 18:36 01/14/23 18:44 Acetaminophen Tab 325 Mg Tab PO 650 mg Q6HR PRN Administration Fever and/ or Pain Albuterol Sulfate 2 puff 01/14/23 16:34 01/15/23 08:36 Albuterol Hfa Inhaler INHALATION 2 puff RT-QID PRN Administration Shortness Of Breath Apixaban 5 mg 01/14/23 21:00 01/14/23 20:27 Apixaban 5 Mg Tab PO 5 mg BID SANTINO Administration Protocol Aspirin 325 mg 01/15/23 09:00 Aspirin 325 Mg Tab PO DAILY [facility] Budesonide/Formoterol Fumarate 2 puff 01/14/23 20:00 01/15/23 08:36 Symbicort 80-4.5 Mcg Inhaler INHALATION 2 puff RT-BID SANTINO Administration Bupropion HCl 75 mg 01/15/23 09:00 Bupropion 75 Mg Tab PO DAILY [facility] Diltiazem HCl 240 mg 01/15/23 09:00 Diltiazem Cd 240 Mg Cap.Er.24h PO DAILY [facility] Divalproex Sodium 500 mg 01/14/23 21:00 01/14/23 20:27 Divalproex 500 Mg Tablet.Dr PO 500 mg HS [facility] Administration Doxycycline Monohydrate 100 mg 01/15/23 00:30 01/15/23 02:41 Doxycycline 100 Mg Cap PO Not Given BID [facility] Protocol Flecainide Acetate 50 mg 01/14/23 21:00 01/14/23 20:27 Flecainide 50 Mg Tab PO 50 mg BID SANTINO Administration Ceftriaxone Sodium 1 gm/ 50 mls @ 100 mls/hr 01/15/23 09:00 Sodium Chloride IVPB Q24HR [facility] Protocol Levothyroxine Sodium 88 mcg 01/15/23 12:00 Levothyroxine 88 Mcg Tab PO DAILY@1200 [facility] Lisinopril 10 mg 01/14/23 21:00 01/14/23 20:27 Lisinopril 10 Mg Tab PO 10 mg BID SANTINO Administration Montelukast Sodium 10 mg 01/14/23 21:00 01/14/23 20:27 Montelukast 10 Mg Tab PO 10 mg HS [facility] Administration Nitroglycerin 0.4 mg 01/14/23 14:18 Nitroglycerin Sl Tabs 0.4 Mg Tab SUBLINGUAL Q5M PRN Chest Pain Nitroglycerin 1 inch 01/14/23 18:00 01/15/23 06:38 Nitroglycerin Oint 1 Inch/Gm Packet TOPICAL Not Given Q6HR SANTINO Pantoprazole Sodium 40 mg 01/15/23 07:30 01/15/23 06:38 Pantoprazole 40 Mg Tablet PO 40 mg DAILY@0730 SANTINO Administration Pravastatin Sodium 40 mg 01/14/23 21:00 01/14/23 20:27 Pravastatin Sodium 40 Mg Tab PO 40 mg HS SANTINO Administration Quetiapine Fumarate 100 mg 01/14/23 21:00 01/14/23 20:27 Quetiapine 100 Mg Tab PO 100 mg HS SANTINO Administration Trazodone HCl 50 mg 01/14/23 16:34 Trazodone Hcl 50 Mg Tab PO HS PRN Insomnia Intake and Output 01/14/23 01/15/23 01/15/23 22:59 06:59 14:59 Intake Total 10 Output Total 525 200 200 Balance -515 -200 -200 Intake: IV 10 Invasive Line 1 10 Output: Urine 525 200 200 Straight 525 200 Other: Voiding Method Bedside Commode # Voids 1 # Bowel Movements 1 Weight 63.503 kg 01/15/23 06:20 01/15/23 06:20
[2023-01-15] MEDS: MULTIVITAMINS, THERA 1 EACH TAB PO SCH (12:14)
[2023-01-15] MEDS: CHOLECALCIFEROL 25 MCG (1000 IU) TABLET PO SCH (12:14)
[2023-01-15] MEDS: LEVOTHYROXINE 88 MCG TAB PO SCH (12:14)
[2023-01-15] MEDS: FOLIC ACID 1 MG TAB PO SCH (12:14)
[2023-01-15] MEDS: methylPREDNISolone SOD SUCCI 40 MG/ML 1 ML VIAL IV SCH ×2 (12:15→17:14)
[2023-01-15] MEDS: LACTOBACILLUS ACIDOPHILUS/PECT 1 EACH CAPSULE PO SCH (12:15)
--- NOTE | 2023-01-15 12:18 | PN ---
PROGRESS NOTE DATE OF SERVICE: 01/15/2023 SUBJECTIVE: This is a 77-year-old, who was admitted with chest pain, was possibly having pleurisy or bibasilar pneumonia. The patient has empiric antibiotics. The patient also has atrial fibrillation, scheduled to have cardioversion on Sunday. No fever. OBJECTIVE: VITAL SIGNS: Pulse is 97, blood pressure 118/81, respirations 18, T-max 100.2. HEENT: Conjunctivae normal. NECK: No jugular venous distention. CARDIOVASCULAR: S1, S2. RESPIRATIONS: A few scattered rhonchi and crackles. ABDOMEN: Soft, nontender. NERVOUS SYSTEM: Nonfocal. LABORATORY DATA: WBC 10.9. ASSESSMENT: 1. Chest pain, possibly pleuritic. 2. Possible bibasilar pneumonia. 3. Fever. 4. Increased WBC. 5. Hyponatremia. 6. Atrial fibrillation. 7. Asthma. 8. Hypertension. 9. Multiple medical issues. 10.History of depression, on ECT from [facility]. RECOMMENDATIONS AND DISCUSSION: This is a 77-year-old woman, who presented with multiple complex medical issues, we will monitor the patient closely. Continue the current medications, continue symptomatic treatment. Otherwise, I would recommend bronchodilators. Symptomatic treatment of the pain and also empiric antibiotics. Pulmonary consultation. Cardiology consultation. Further recommendations to follow. MMODL / IJN: [id number] /
[2023-01-15] MEDS: ACETAMINOPHEN TAB 325 MG TAB PO PRN (20:01)
[2023-01-15] MEDS: DIVALPROEX 500 MG TABLET.DR PO SCH (20:01)
[2023-01-15] MEDS: PRAVASTATIN SODIUM 40 MG TAB PO SCH (20:01)
[2023-01-15] MEDS: MONTELUKAST 10 MG TAB PO SCH (20:01)
[2023-01-15] MEDS: QUEtiapine 50 MG TAB PO SCH (20:01)
[2023-01-15] MEDS: QUEtiapine 100 MG TAB PO SCH (21:50)
[2023-01-16] MEDS: methylPREDNISolone SOD SUCCI 40 MG/ML 1 ML VIAL IV SCH ×4 (00:26→23:07)
[2023-01-16] MEDS: traZODone HCL 50 MG TAB PO PRN ×2 (00:48→20:09)
--- NOTE | 2023-01-16 04:24 | P.CNPUL ---
History of Present Illness Consult date: 01/16/23 Requesting physician: Evie Garcia Reason for consult: pneumonia Chief complaint: Chest pain History of present illness: I am seeing this patient in new consultation today 01/16/2023 for suspected left lower lobe pneumonia. Patient is a 77-year-old white female with past medical history significant for asthma, paroxysmal atrial fibrillation, hypertension, previous intentional overdose, and bipolar disorder. Patient does follow in the office with Dr. Judd for moderate persistent asthma. Patient is normally maintained on a combination of Trelegy inhaler and albuterol. Patient was rec ently treated in the office for asthma exacerbation with steroid burst taper. Patient is also on Singular. Patient presented to the emergency room on January 14 for substernal chest pain. Pain is worse with deep inspiration and palpation. No evidence of acute coronary syndrome. ECG showed no ischemic changes. Troponins less than 0.012. There are concerns for pneumonia. Chest x-ray from 2 days ago show left lower lobe airspace opacity which may reflect atelectasis versus infiltrate. Patient is intermittently febrile this admission with a T- max of 100.2F. Patient is currently in bed, on 3 L/m nasal cannula, in no acute distress. She is refusing to provide any additional information at this time. She states that she just wants to go back to bed. Patient was started on a combination of azithromycin and Rocephin. Procalcitonin level was elevated at 0.95. Most recent CBC from yesterday shows a WBC count of 11, hemoglobin 10, hematocrit 30, platelets 251. BMP shows sodium 134, potassium 4.5, chloride 102, serum bicarbonate 23, BUN 36, creatinine 1.14, glucose 113. Negative for COVID-19. Currently on a combination of bronchodilators and Symbicort inhaler. Asthma does not appear active. Patient appears nontoxic, and is hemodynamically stable. Review of Systems She is refusing to provide a review of systems at this time Past Medical History Past Medical History: Asthma, GERD/Reflux, Hyperlipidemia, Hypertension, Osteoarthritis (OA), Thyroid Disorder Additional Past Medical History / Comment(s): Insomnia, past migraines,PAST HYPERTENSION , sinus problems at times,HIP DISLOCATION X20, legally blind Lt eye History of Any Multi-Drug Resistant Organisms: None Reported Past Surgical History: Bariatric Surgery, Joint Replacement, Orthopedic Surgery, Tubal Ligation Additional Past Surgical History / Comment(s): 2003 lap band, panniculectomy, R hip ORIF/total arthroplasty, L hip arthroplasty x 2, r knee ACL repair and total right arthroplasty, R thumb sx, D&Cs, EGDs/colonoscopies, R breast benign bx. EGD Past Anesthesia/Blood Transfusion Reactions: No Reported Reaction Past Psychological History: ADD/ADHD, Anxiety, Bipolar, Depression Smoking Status: Former smoker Past Alcohol Use History: Occasional Past Drug Use History: None Reported - Past Family History Mother History Unknown: Yes Family Medical History: Cancer Additional Family Medical History / Comment(s): BLADDER CA- AT 70 YEARS OLD. Father History Unknown: Yes Family Medical History: Coronary Artery Disease (CAD), Myocardial Infarction ([place]) Additional Family Medical History / Comment(s): AT 60 YRS OLD Medications and Allergies Home Medications Medication Instructions Recorded Confirmed Type Albuterol Sulfate [Albuterol 2 puff INHALATION RT-QID PRN 03/12/20 01/14/23 History Sulfate Hfa] Levothyroxine Sodium [Synthroid] 88 mcg PO DAILY@1200 03/12/20 01/14/23 History Montelukast Sodium [Singulair] 10 mg PO HS 03/12/20 01/14/23 History Multivit-Min/Iron/Folic/Lutein 1 tab PO DAILY@1200 03/12/20 01/14/23 History [Centrum Silver Women Tablet] Omeprazole 20 mg PO DAILY 03/12/20 01/14/23 History Alendronate Sodium [Fosamax] 70 mg PO AHMADI 01/23/22 01/14/23 History Budesonide/Formoterol Fumarate 2 puff INHALATION RT-BID 07/15/22 01/14/23 His tory [Symbicort 80-4.5 Mcg Inhaler] Cholecalciferol [Vitamin D3 (25 50 mcg PO Q2D@1200 07/15/22 01/14/23 History Mcg = 1000 Iu)] Folic Acid 0.8 mg PO DAILY@1200 07/15/22 01/14/23 History Apixaban [Eliquis] 5 mg PO BID 01/14/23 01/14/23 History Diltiazem Cd [Cardizem CD] 240 mg PO DAILY 01/14/23 01/14/23 History Divalproex Sodium [Depakote] 500 mg PO HS 01/14/23 01/14/23 History Flecainide [Tambocor] 50 mg PO BID 01/14/23 01/14/23 History Geovanna Ffoana B.lactis 1 cap PO DAILY@1200 01/14/23 01/14/23 History [Probiotic] Loratadine 10 mg PO DAILY 01/14/23 01/14/23 History Pravastatin Sodium [Pravachol] 40 mg PO HS 01/14/23 01/14/23 History QUEtiapine [SEROquel] 50 mg PO BID 01/14/23 01/14/23 History QUEtiapine [SEROquel] 100 mg PO HS 01/14/23 01/14/23 History buPROPion [Wellbutrin] 75 mg PO DAILY 01/14/23 01/14/23 History lisinopriL [Zestril] 10 mg PO BID 01/14/23 01/14/23 History traZODone HCL [Desyrel] 50 mg PO HS PRN 01/14/23 01/14/23 History Allergies Allergy/AdvReac Type Severity Reaction Status Date / Time buspirone [From BuSpar] AdvReac Insomnia Verified 01/14/23 15:48 fluticasone furoate AdvReac Unknown Verified 01/14/23 15:48 [From Trelegy Ellipta] lurasidone [From Latuda] AdvReac Unknown Verified 01/14/23 15:48 morphine AdvReac Confusion Verified 01/14/23 15:48 Opioids - Morphine Analogues AdvReac Confusion Verified 01/14/23 15:48 Opioids-Meperidine and AdvReac Confusion Verified 01/14/23 15:48 Related spironolactone AdvReac ANXIETY Verified 01/14/23 15:48 [From Aldactone] AND DEPRESSION umeclidinium AdvReac Unknown Verified 01/14/23 15:48 [From Trelegy Ellipta] vilanterol AdvReac Unknown Verified 01/14/23 15:48 [From Trelegy Ellipta] OPIATES AdvReac Unknown AGITATION Uncoded 01/14/23 15:48 Physical Exam Vitals: Vital Signs Temp Pulse Resp BP Pulse Ox 01/16/23 00:00 98.1 F 78 18 110/67 95 01/15/23 19:59 98.2 F 89 18 112/72 94 L 01/15/23 16:00 98.7 F 65 18 109/64 91 L 01/15/23 14:00 65 18 01/15/23 12:10 98.1 F 93 18 106/64 94 L 01/15/23 09:28 97 18 01/15/23 09:25 98.4 F 97 18 118/81 100 01/15/23 04:00 100.2 F H 78 18 97/65 92 L Intake and Output 01/15/23 01/15/23 01/16/23 14:59 22:59 06:59 Intake Total 222 Output Total 200 Balance -200 222 Intake: Oral 222 Output: Urine 200 Other: Voiding Method Bedside Commode # Voids 1 1 # Bowel Movements 1 GENERAL EXAM: Alert, non-cooperative, 77-year-old female appearing stated age, fairly comfortable in no apparent distress. HEAD: Normocephalic and atraumatic EYES: Normal reaction of pupils, equal size. NOSE: Clear with pink turbinates. THROAT: No erythema or exudates. NECK: No masses, no JVD. CHEST: No chest wall deformity. LUNGS: Equal air entry with no crackles, wheeze, rhonchi or dullness. On 3 L/m nasal cannula. No conversational dyspnea or accessory muscle use.. CVS: S1 and S2 normal with no audible murmur, irregular rhythm. No extra heart sounds ABDOMEN: No hepatosplenomegaly, active bowel sounds, no guarding or rigidity. SPINE: No scoliosis or deformity SKIN: No rashes CENTRAL NERVOUS SYSTEM: No focal deficits, tone is normal in all 4 extremities. EXTREMITIES: There is no peripheral edema, clubbing, or cyanosis. Peripheral pulses are intact. Results - Laboratory Findings CBC and BMP: 01/16/23 09:45 01/16/23 09:45 PT/INR, D-dimer PT 9.7 sec (9.0-12.0) 01/14/23 11:20 INR 0.9 (<1.2) 01/14/23 11:20 Abnormal lab findings: Abnormal Labs 01/14/23 01/14/23 01/15/23 11:20 11:20 06:20 WBC 11.4 H RBC 3.68 L Hgb 10.6 L Hct 32.7 L Neutrophils # 9.8 H Lymphocytes # 0.7 L Sodium 135 L 134 L BUN 33 H 36 H Creatinine 1.14 H Glucose 114 H 113 H HDL Cholesterol 64.50 H Procalcitonin 01/15/23 01/15/23 06:20 06:20 WBC 10.9 H RBC 3.25 L Hgb 9.8 L Hct 30.0 L Neutrophils # 8.4 H Lymphocytes # Sodium BUN Creatinine Glucose HDL Cholesterol Procalcitonin 0.95 H - Diagnostic Findings Chest x-ray: image reviewed Assessment and Plan Assessment: Acute hypoxemic respiratory failure, possibly secondary to community acquired pneumonia. Currently on 3 L/m nasal cannula. Chest x-ray shows bibasilar patchy airspace opacities which may represent atelectasis versus infiltrate. Moderate persistent asthma, currently not in exacerbation Atypical chest pain, acute coronary syndrome ruled out Paroxysmal atrial fibrillation with controlled ventricular rate. Patient was tentatively scheduled for PABLITO and cardioversion on Sunday, this may have been rescheduled Benign essential hypertension Hyperlipidemia Bipolar disorder History of intentional overdose Plan: Patient's medications, labs, chest x-ray reviewed Continue supplemental oxygen to maintain oxygen saturation of 92% or greater Currently on a combination of azithromycin and Rocephin Procalcitonin level was elevated at 0.95 Continue as needed bronchodilators and Symbicort inhaler Taper solumedrol check UA Anticoagulated on Eliquis Echocardiogram is pending We will continue to follow I have personally seen and examined the patient, performed the documentation and the assessment and plan as written. Number of minutes spent on the visit:20 This is a joint evaluation that was done along with the nurse practitioner. This evaluation was done in more than 30 minutes. The patient was hospitalized for acute hypoxic respiratory failure and shortness of breath. She is known to have bronchial asthma. She has. At time of admission. There may be some limited bibasilar pulmonary infiltrates and a repeat chest x-ray from today showing improvement although there is some minimal residual left basilar changes. The patient remains on Rocephin and Zithromax. She is weak and she is quite debilitated and unsteady in her gait. She is at a high risk of fall. Pro-calcitonin level was at 0.95. She is on bronchodilators. She is also on systemic steroids. She remains in atrial fibrillation. Cardioversion was postponed by cardiology and this will be done once her condition is further stabilized. Nevertheless, the patient will be kept on her medications including anti-coagulation with Eliquis 5 mg by mouth twice a day. We'll continue to follow. Time with Patient: Greater than 30
[2023-01-16] MEDS: PANTOPRAZOLE 40 MG TABLET PO SCH (06:10)
--- NOTE | 2023-01-16 08:06 | XR ---
EXAMINATION TYPE: XR chest 1V portable DATE OF EXAM: 01/16/2023 7:07 AM COMPARISON: Chest radiographs from 01/14/2023 TECHNIQUE: XR chest 1V portable Frontal view of the chest. CLINICAL INDICATION:Female, 77 years old with history of pneumonia; FINDINGS: Lungs/Pleura: There is no evidence of pleural effusion, focal consolidation, or pneumothorax. Pulmonary vascularity: Unremarkable. Heart/mediastinum: Cardiomediastinal silhouette is unremarkable. Musculoskeletal: No acute osseous pathology. Other findings: None Lines/Tubes: Tubing seen in the upper abdomen. IMPRESSION: Lungs are relatively clear, findings on prior likely representing atelectasis. No acute cardiopulmona ry disease/process.
[2023-01-16] MEDS: SYMBICORT 80-4.5 MCG INHALER INHALATION SCH ×2 (08:39→19:49)
[2023-01-16] MEDS: FLECAINIDE 50 MG TAB PO SCH ×2 (08:46→20:09)
[2023-01-16] MEDS: buPROPion 75 MG TAB PO SCH (08:46)
[2023-01-16] MEDS: lisinopriL 10 MG TAB PO SCH ×2 (08:46→20:09)
[2023-01-16] MEDS: APIXABAN 5 MG TAB PO SCH ×2 (08:46→20:09)
[2023-01-16] MEDS: DILTIAZEM CD 240 MG CAP.ER.24H PO SCH (08:46)
[2023-01-16] MEDS: LORATADINE 10 MG TAB PO SCH (08:46)
[2023-01-16] MEDS: QUEtiapine 50 MG TAB PO SCH ×2 (08:46→20:09)
[2023-01-16] MEDS ORDERED: DEXTROSE 50% SYRINGE 50 ML IVP PRN ×2 (09:14)
[2023-01-16 09:32] LABS: Appearance,Urine Clear (Clear); Bilirubin,Urine Negative (Negative); Blood,Urine Negative (Negative); Color,Urine Yellow; Glucose,Urine (UA) Negative (Negative); Ketones,Urine Negative (Negative); Leukocyte Esterase,Urine Small (Negative); Mucus,Urine Rare /hpf; Nitrite,Urine Negative (Negative); Protein,Urine Trace (Negative); RBC,Urine 21 /hpf (0-5); Specific Gravity,Urine 1.018 (1.001-1.035); Squamous Epithelial Cell,Urine <1 /hpf (0-4); Urobilinogen,Urine <2.0 mg/dL (<2.0); WBC,Urine 17 /hpf (0-5)
[2023-01-16 10:12] LABS: Basophils % (A) 0 %; Eosinophils # (A) 0.2 k/uL (0-0.7); Eosinophils % (A) 1 %; HCT 32.8 % (34.0-46.0); HGB 10.5 gm/dL (11.4-16.0); Lymphocytes # (A) 0.7 k/uL (1.0-4.8); Lymphocytes % (A) 6 %; MCH 28.9 pg (25.0-35.0); MCHC 32.1 g/dL (31.0-37.0); MCV 89.8 fL (80.0-100.0); Mean Platelet Volume 10.1; Monocytes # (A) 0.2 k/uL (0-1.0); Monocytes % (A) 2 %; Neutrophils # (A) 9.7 k/uL (1.3-7.7); Neutrophils % (A) 90 %; Platelet Count 254 k/uL (150-450); RBC 3.66 m/uL (3.80-5.40); WBC 10.8 k/uL (3.8-10.6)
[2023-01-16] MEDS: AZITHROMYCIN 500 MG in SODIUM CHLORIDE 0.9% 250 ML IVPB SCH (10:13)
[2023-01-16 10:42] LABS: African American GFR (CKD) 82 (>60 ml/min/1.73 sqM); Anion Gap 12 mmol/L; Blood Urea Nitrogen 35 mg/dL (7-17); Calcium 8.7 mg/dL (8.4-10.2); Carbon Dioxide 22 mmol/L (22-30); Chloride 99 mmol/L (98-107); Glucose 207 mg/dL (74-99); Non-African American GFR(CKD) 71 (>60 ml/min/1.73 sqM); Potassium 4.4 mmol/L (3.5-5.1); Sodium 133 mmol/L (137-145)
[2023-01-16 11:53] LABS: Glucose,Whole Blood 185 mg/dL (70-110)
[2023-01-16] MEDS: CHOLECALCIFEROL 25 MCG (1000 IU) TABLET PO SCH (12:07)
[2023-01-16] MEDS: MULTIVITAMINS, THERA 1 EACH TAB PO SCH (12:07)
[2023-01-16] MEDS: LEVOTHYROXINE 88 MCG TAB PO SCH (12:07)
[2023-01-16] MEDS: LACTOBACILLUS ACIDOPHILUS/PECT 1 EACH CAPSULE PO SCH (12:07)
[2023-01-16] MEDS: FOLIC ACID 1 MG TAB PO SCH (12:08)
[2023-01-16] MEDS: INSULIN ASPART (NovoLOG) 100 UNIT/ML VIAL SQ SCH ×3 (12:08→22:11)
--- NOTE | 2023-01-16 13:47 | P.PN ---
Subjective HISTORY OF PRESENT ILLNESS: This is a 77-year-old female with a past medical history significant for atrial fibrillation, asthma, hypertension, syncope, peripheral neuropathy, and depression. Patient follows in the office with Dr. De Leon. We have been asked to see the patient in consultation for chest pain. Patient examined at the bedside. Patient states she began having chest pain on while she was at [facility] with her . She states the pain continued over the weekend. She states there is nothing that really makes the pain better. She reports the pain is worse with deep inspiration. She also reports the pain is worse with chest wall palpation. She denied any radiation of the pain. Denied any nausea or vomiting. Denied any dizziness or lightheadedness. She denied any episodes of syncope. The patient has been treated for possible pneumonia. The patient was found to have leukocytosis and was febrile overnight. Patient states she is scheduled for outpatient cardioversion on January 19. * EKG reveals atrial fibrillation with controlled ventricular rate. No signs of acute ischemia. * Chest xray bibasilar patchy airspace opacities which may represent atelectasis versus infiltrate * Laboratory data: W BC 10.9. Hemoglobin 9.8. Platelet count 251. Sodium 134. Potassium 4.5. BUN 36. Creatinine 1.14. Troponin negative 3. ProBNP 553. * Current home cardiac medications include Eliquis 5mg BID, Cardizem 240 mg daily, Flecainide 50mg BID, Pravachol 40 mg at night, and lisinopril 10 mg twice a day * Most recent echocardiogram obtained in March 2020 revealing ejection fraction 60-65% with mild tricuspid regurgitation 01/16/2023 Patient examined this morning at the bedside. Patient denies chest pain or pressure. She reports her shortness of breath is improving. She is receiving antibiotics for pneumonia. WBC today at 10.8. Echocardiogram remains pending. PHYSICAL EXAM: VITAL SIGNS: Reviewed. GENERAL: Well-developed in no acute distress. HEENT: Head is normocephalic. Pupils are equal, round. Sclerae anicteric. Mucous membranes of the mouth are moist. Neck supple. No JVD or thyromegaly LUNGS: Respirations even and unlabored. Lungs essentially clear to auscultation bilaterally. HEART: Irregular rate and rhythm. S1 and S2 heard. ABDOMEN: Soft. Nondistended. Nontender. EXTREMITIES: Normal range of motion. No clubbing or cyanosis. Peripheral pulses intact. No lower extremity edema NEUROLOGIC: Awake and alert. Oriented x 3. ASSESSMENT: Chest pain, atypical, troponin negative 3, appears pleuritic Pneumonia Leukocytosis with fever Persistent atrial fibrillation Hypertension Hyperlipidemia Asthma Peripheral neuropathy PLAN: 2-D echo ordered. Await results Continue cardiac medications Patient scheduled for outpatient cardioversion on January 19. We will postpone this procedure secondary to pneumonia. Patient may follow up in the office with Dr. De Leon to have this rescheduled. No further inpatient recommendations from a cardiac standpoint Nurse practitioner note has been reviewed by physician. Signing provider agrees with the documented findings, assessment, and plan of care. Objective - Vital Signs Vital signs: Vital Signs Temp 97.4 F L 01/16/23 11:48 Pulse 101 H 01/16/23 11:48 Resp 16 01/16/23 11:48 BP 121/80 01/16/23 11:48 Pulse Ox 94 L 01/16/23 11:48 FiO2 Intake & Output 01/15/23 01/16/23 01/16/23 18:59 06:59 18:59 Intake Total 222 300 118 Output Total 200 175 Balance 22 300 -57 Intake: Oral 222 300 118 Output: Urine 200 175 Other: Voiding Method Bedside Commode Bedside Commode # Voids 1 1 # Bowel Movements 1 - Labs CBC & Chem 7: 01/16/23 09:45 01/16/23 09:45 Labs: Abnormal Lab Results - Last 24 Hours (Table) 01/16/23 01/16/23 01/16/23 Range/Units 08:56 09:45 09:45 WBC 10.8 H (3.8-10.6) k/uL RBC 3.66 L (3.80-5.40) m/uL Hgb 10.5 L (11.4-16.0) gm/dL Hct 32.8 L (34.0-46.0) % Neutrophils # 9.7 H (1.3-7.7) k/uL Lymphocytes # 0.7 L (1.0-4.8) k/uL Sodium 133 L (137-145) mmol/L BUN 35 H (7-17) mg/dL Glucose 207 H (74-99) mg/dL POC Glucose (mg/dL) (70-110) mg/dL Urine Protein Trace H (Negative) Ur Leukocyte Esterase Small H (Negative) Urine RBC 21 H (0-5) /hpf Urine WBC 17 H (0-5) /hpf Urine Mucus Rare H (None) /hpf 01/16/23 Range/Units 11:45 WBC (3.8-10.6) k/uL RBC (3.80-5.40) m/uL Hgb (11.4-16.0) gm/dL Hct (34.0-46.0) % Neutrophils # (1.3-7.7) k/uL Lymphocytes # (1.0-4.8) k/uL Sodium (137-145) mmol/L BUN (7-17) mg/dL Glucose (74-99) mg/dL POC Glucose (mg/dL) 185 H (70-110) mg/dL Urine Protein (Negative) Ur Leukocyte Esterase (Negative) Urine RBC (0-5) /hpf Urine WBC (0-5) /hpf Urine Mucus (None) /hpf
--- NOTE | 2023-01-16 14:00 | PN ---
PROGRESS NOTE DATE OF SERVICE: 01/16/2023 SUBJECTIVE: This is a 77-year-old woman, who was admitted with chest pain, possibly pleuritic and possibly bilateral community-acquired pneumonia, is improving slightly. The patient is on broad spectrum IV antibiotics. No chest pain. No palpitation. OBJECTIVE: VITAL SIGNS: Pulse is 100, blood pressure 121/80, respirations 16. HEENT: Conjunctivae normal. NECK: No JVD. CARDIOVASCULAR: S1, S2 muffled. RESPIRATIONS: Breath sounds diminished at the bases. A few scattered rhonchi. ABDOMEN: Soft. LABORATORY DATA: Reviewed. COVID-19 is negative. ASSESSMENT: 1. Chest pain, possibly pleuritic. 2. Possible bibasilar pneumonia. 3. Fever. 4. Increased WBC. 5. Hyponatremia. 6. Atrial fibrillation. 7. Asthma. 8. Hypertension. 9. History of depression, on ECT from [facility]. 10.Multiple medical issues. RECOMMENDATIONS: Recommend to continue current management. Continue symptomatic treatment. Continue with IV steroids. Continue with bronchodilators. Continue with antibiotics. Repeat labs in the morning. Closely follow with Pulmonary. Further recommendations to follow. MMODL / IJN: [id number] /
[2023-01-16 16:53] LABS: Glucose,Whole Blood 184 mg/dL (70-110)
--- NOTE | 2023-01-16 17:26 | CA ---
Transthoracic Echo Report Name: Michelle Austin Age: 77 Gender: F : 1945 Exam Date: 01/16/2023 14:24 Exam Location: [facility] Ht (in): 61 Wt (lb): 140 Ordering Physician: Laya Mcgowan Attending/Referring Phys: [id number], [facility] Bryan Schwartz Procedure CPT: Indications: LV function Cardiac Hx: Technical Quality: Fair Contrast 1: Total Dose (mL): Contrast 2: Total Dose (mL): MEASUREMENTS (Male / Female) Normal Values 2D ECHO LV Diastolic Diameter PLAX 4.0 cm 4.2 - 5.9 / 3.9 - 5.3 cm LV Systolic Diameter PLAX 2.6 cm IVS Diastolic Thickness 1.4 cm 0.6 - 1.0 / 0.6 - 0.9 cm LVPW Diastolic Thickness 1.3 cm 0.6 - 1.0 / 0.6 - 0.9 cm LV Relative Wall Thickness 0.7 RV Internal Dim ED PLAX 3.1 cm LVOT Diameter 2.0 cm Aortic Root Diameter 3.0 cm LA Systolic Diameter LX 3.4 cm 3.0 - 4.0 / 2.7 - 3.8 cm LV Diastolic Volume MOD BP 38.8 cm??? 67 - 155 / 56 - 104 cm??? LV Systolic Volume MOD BP 11.3 cm??? 22 - 58 / 19 - 49 cm??? LV Ejection Fraction MOD BP 70.8 % >= 55 % LV Diastolic Volume MOD 4C 49.4 cm??? LV Systolic Volume MOD 4C 10.2 cm??? LV Ejection Fraction MOD 4C 79.4 % LV Diastolic Length 4C 7.1 cm LV Systolic Length 4C 6.0 cm LV Diastolic Volume MOD 2C 27.7 cm??? LV Systolic Volume MOD 2C 12.0 cm??? LV Ejection Fraction MOD 2C 56.7 % LV Diastolic Length 2C 6.4 cm LV Systolic Length 2C 5.5 cm LA Volume 65.9 cm??? 18 - 58 / 22 - 52 cm??? DOPPLER AV Peak Velocity 159.0 cm/s AV Peak Gradient 10.1 mmHg LVOT Peak Velocity 122.1 cm/s LVOT Peak Gradient 6.0 mmHg AV Area Cont Eq pk 2.4 cm??? MV Peak Velocity 170.9 cm/s MV Peak Gradient 11.7 mmHg MV Mean Velocity 70.6 cm/s MV Mean Gradient 2.8 mmHg MV Velocity Time Integral 33.5 cm MV E' Velocity 10.7 cm/s TR Peak Velocity 241.7 cm/s TR Peak Gradient 23.4 mmHg Right Ventricular Systolic Press 28.8 mmHg PV Peak Velocity 121.0 cm/s PV Peak Gradient 5.9 mmHg FINDINGS Left Ventricle Moderately increased septal wall thickness. Moderately increased posterior wall thickness. Left ventricular ejection fraction is estimated at 55-60 %. Right Ventricle Normal right ventricular size. Right Atrium Mild right atrial dilatation. Left Atrium Moderately increased left atrial volume. Mildly increased left atrial area. LA Volume index= 41ml/m2 Mitral Valve Structurally normal mitral valve. Aortic Valve Aortic valve not well visualized. No aortic valve stenosis or regurgitation. Tricuspid Valve Tricuspid valve not well visualized. Trace TR. Pulmonic Valve Pulmonic valve not well visualized. No pulmonic regurgitation. Pericardium Not well visualized. Aorta Normal size aortic root and proximal ascending aorta. CONCLUSIONS Limited parasternal and subcostal views. Normal LV systolic function Previewed by: Dr. Michael Howell MD (Electronically Signed) Final Date: 16 January 2023 17:25
[2023-01-16] MEDS: ACETAMINOPHEN TAB 325 MG TAB PO PRN (18:58)
[2023-01-16 19:57] LABS: Glucose,Whole Blood 145 mg/dL (70-110)
[2023-01-16] MEDS: PRAVASTATIN SODIUM 40 MG TAB PO SCH (20:09)
[2023-01-16] MEDS: DIVALPROEX 500 MG TABLET.DR PO SCH (20:09)
[2023-01-16] MEDS: MONTELUKAST 10 MG TAB PO SCH (20:09)
[2023-01-16] MEDS: QUEtiapine 100 MG TAB PO SCH (23:30)
[2023-01-17 06:16] LABS: Glucose,Whole Blood 177 mg/dL (70-110)
[2023-01-17 07:47] LABS: Glucose,Whole Blood 147 mg/dL (70-110)
[2023-01-17] MEDS: INSULIN ASPART (NovoLOG) 100 UNIT/ML VIAL SQ SCH ×2 (08:10→12:08)
[2023-01-17 08:19] LABS: Basophils % (A) 0 %; Eosinophils # (A) 0.1 k/uL (0-0.7); Eosinophils % (A) 1 %; HCT 35.6 % (34.0-46.0); HGB 11.3 gm/dL (11.4-16.0); Lymphocytes # (A) 0.7 k/uL (1.0-4.8); Lymphocytes % (A) 5 %; MCH 29.4 pg (25.0-35.0); MCHC 31.8 g/dL (31.0-37.0); MCV 92.2 fL (80.0-100.0); Mean Platelet Volume 8.8; Monocytes # (A) 0.4 k/uL (0-1.0); Monocytes % (A) 3 %; Neutrophils # (A) 13.1 k/uL (1.3-7.7); Neutrophils % (A) 90 %; Platelet Count 376 k/uL (150-450); RBC 3.86 m/uL (3.80-5.40); RDW 12.9 % (11.5-15.5); WBC 14.5 k/uL (3.8-10.6)
[2023-01-17] MEDS: SYMBICORT 80-4.5 MCG INHALER INHALATION SCH (08:35)
[2023-01-17 08:44] LABS: African American GFR (CKD) 77 (>60 ml/min/1.73 sqM); Anion Gap 10 mmol/L; Blood Urea Nitrogen 40 mg/dL (7-17); Calcium 8.9 mg/dL (8.4-10.2); Carbon Dioxide 23 mmol/L (22-30); Chloride 101 mmol/L (98-107); Glucose 157 mg/dL (74-99); Non-African American GFR(CKD) 67 (>60 ml/min/1.73 sqM); Potassium 4.5 mmol/L (3.5-5.1); Sodium 134 mmol/L (137-145)
[2023-01-17 08:58] LABS: C Reactive Protein 5.2 mg/dL (<1.0)
[2023-01-17 09:28] LABS: Erythrocyte Sedimentation Rate 58 mm/hr (0-20)
[2023-01-17] MEDS: PANTOPRAZOLE 40 MG TABLET PO SCH (09:42)
[2023-01-17] MEDS: lisinopriL 10 MG TAB PO SCH (09:42)
[2023-01-17] MEDS: QUEtiapine 50 MG TAB PO SCH (09:42)
[2023-01-17] MEDS: DILTIAZEM CD 240 MG CAP.ER.24H PO SCH (09:42)
[2023-01-17] MEDS: LORATADINE 10 MG TAB PO SCH (09:42)
[2023-01-17] MEDS: ACETAMINOPHEN TAB 325 MG TAB PO PRN (09:43)
[2023-01-17] MEDS: FLECAINIDE 50 MG TAB PO SCH (09:43)
[2023-01-17] MEDS: APIXABAN 5 MG TAB PO SCH (09:43)
[2023-01-17] MEDS: methylPREDNISolone SOD SUCCI 40 MG/ML 1 ML VIAL IV SCH (09:44)
[2023-01-17] MEDS: buPROPion 75 MG TAB PO SCH (09:44)
[2023-01-17 10:01] VITALS: TEMP 98
[2023-01-17 11:52] LABS: Glucose,Whole Blood 245 mg/dL (70-110)
[2023-01-17] MEDS ORDERED: predniSONE 20 MG TAB PO SCH (12:00)
[2023-01-17] MEDS: FOLIC ACID 1 MG TAB PO SCH (12:08)
[2023-01-17] MEDS: CHOLECALCIFEROL 25 MCG (1000 IU) TABLET PO SCH (12:08)
[2023-01-17] MEDS: LACTOBACILLUS ACIDOPHILUS/PECT 1 EACH CAPSULE PO SCH (12:08)
[2023-01-17] MEDS: AZITHROMYCIN 500 MG in SODIUM CHLORIDE 0.9% 250 ML IVPB SCH (12:08)
[2023-01-17] MEDS: LEVOTHYROXINE 88 MCG TAB PO SCH (12:08)
[2023-01-17] MEDS: MULTIVITAMINS, THERA 1 EACH TAB PO SCH (12:08)
[2023-01-17 12:22] VITALS: BP 122/83; PULSE 130; RESP 16
[2023-01-17] MEDS ORDERED: METOPROLOL TARTRATE 25 MG TAB PO SCH (13:00)
--- NOTE | 2023-01-17 14:27 | P.PN ---
Subjective HISTORY OF PRESENT ILLNESS: This is a 77-year-old female with a past medical history significant for atrial fibrillation, asthma, hypertension, syncope, peripheral neuropathy, and depression. Patient follows in the office with Dr. De Leon. We have been asked to see the patient in consultation for chest pain. Patient examined at the bedside. Patient states she began having chest pain on while she was at [facility] with her . She states the pain continued over the weekend. She states there is nothing that really makes the pain better. She reports the pain is worse with deep inspiration. She also reports the pain is worse with chest wall palpation. She denied any radiation of the pain. Denied any nausea or vomiting. Denied any dizziness or lightheadedness. She denied any episodes of syncope. The patient has been treated for possible pneumonia. The patient was found to have leukocytosis and was febrile overnight. Patient states she is scheduled for outpatient cardioversion on January 19. * EKG reveals atrial fibrillation with controlled ventricular rate. No signs of acute ischemia. * Chest xray bibasilar patchy airspace opacities which may represent atelectasis versus infiltrate * Laboratory data: W BC 10.9. Hemoglobin 9.8. Platelet count 251. Sodium 134. Potassium 4.5. BUN 36. Creatinine 1.14. Troponin negative 3. ProBNP 553. * Current home cardiac medications include Eliquis 5mg BID, Cardizem 240 mg daily, Flecainide 50mg BID, Pravachol 40 mg at night, and lisinopril 10 mg twice a day * Most recent echocardiogram obtained in March 2020 revealing ejection fraction 60-65% with mild tricuspid regurgitation 01/16/2023 Patient examined this morning at the bedside. Patient denies chest pain or pressure. She reports her shortness of breath is improving. She is receiving antibiotics for pneumonia. WBC today at 10.8. Echocardiogram remains pending. 01/17/2023 Patient examined this afternoon at the bedside. Patient denies chest pain or pressure. She reports her shortness of breath has resolved. Telemetry reveals atrial fibrillation with heart rate between [id number]. Echocardiogram completed revealing ejection fraction 55-60% with trace TR. PHYSICAL EXAM: VITAL SIGNS: Reviewed. GENERAL: Well-developed in no acute distress. HEENT: Head is normocephalic. Pupils are equal, round. Sclerae anicteric. Mucous membranes of the mouth are moist. Neck supple. No JVD or thyromegaly LUNGS: Respirations even and unlabored. Lungs essentially clear to auscultation bilaterally. HEART: Tachycardic. Irregular rate and rhythm. S1 and S2 heard. ABDOMEN: Soft. Nondistended. Nontender. EXTREMITIES: Normal range of motion. No clubbing or cyanosis. Peripheral pulses intact. No lower extremity edema NEUROLOGIC: Awake and alert. Oriented x 3. ASSESSMENT: Chest pain, atypical, troponin negative 3, appears pleuritic Pneumonia Leukocytosis with fever Persistent atrial fibrillation Hypertension Hyperlipidemia Asthma Peripheral neuropathy PLAN: Continue cardiac medications Add metoprolol 25 mg twice a day Patient scheduled for outpatient cardioversion on January 19. We will postpone this procedure secondary to pneumonia. Patient may follow up in the office with Dr. De Leon to have this rescheduled. Patient is stable for discharge home today from a cardiac standpoint Nurse practitioner note has been reviewed by physician. Signing provider agrees with the documented findings, assessment, and plan of care. Objective - Vital Signs Vital signs: Vital Signs Temp 98 F 01/17/23 09:40 Pulse 130 H 01/17/23 12:00 Resp 16 01/17/23 12:00 BP 122/83 01/17/23 12:00 Pulse Ox 98 01/17/23 12:26 FiO2 Intake & Output 01/16/23 01/17/23 01/17/23 18:59 06:59 18:59 Intake Total 594 360 Output Total 575 800 Balance 19 -800 360 Intake: Oral 594 360 Output: Urine 575 800 Other: Voiding Method Toilet Toilet # Voids 2 # Bowel Movements 1 - Labs CBC & Chem 7: 01/17/23 08:00 01/17/23 08:00 Labs: Abnormal Lab Results - Last 24 Hours (Table) 01/16/23 01/16/23 01/16/23 Range/Units 09:45 16:39 19:56 WBC (3.8-10.6) k/uL Hgb (11.4-16.0) gm/dL Neutrophils # (1.3-7.7) k/uL Lymphocytes # (1.0-4.8) k/uL ESR (0-20) mm/hr Sodium (137-145) mmol/L BUN (7-17) mg/dL Glucose (74-99) mg/dL POC Glucose (mg/dL) 184 H 145 H (70-110) mg/dL C-Reactive Protein (<1.0) mg/dL Procalcitonin 0.57 H (0.02-0.09) ng/mL 01/17/23 01/17/23 01/17/23 Range/Units 06:09 07:44 08:00 WBC 14.5 H (3.8-10.6) k/uL Hgb 11.3 L (11.4-16.0) gm/dL Neutrophils # 13.1 H (1.3-7.7) k/uL Lymphocytes # 0.7 L (1.0-4.8) k/uL ESR 58 H (0-20) mm/hr Sodium (137-145) mmol/L BUN (7-17) mg/dL Glucose (74-99) mg/dL POC Glucose (mg/dL) 177 H 147 H (70-110) mg/dL C-Reactive Protein (<1.0) mg/dL Procalcitonin (0.02-0.09) ng/mL 01/17/23 01/17/23 Range/Units 08:00 11:50 WBC (3.8-10.6) k/uL Hgb (11.4-16.0) gm/dL Neutrophils # (1.3-7.7) k/uL Lymphocytes # (1.0-4.8) k/uL ESR (0-20) mm/hr Sodium 134 L (137-145) mmol/L BUN 40 H (7-17) mg/dL Glucose 157 H (74-99) mg/dL POC Glucose (mg/dL) 245 H (70-110) mg/dL C-Reactive Protein 5.2 H (<1.0) mg/dL Procalcitonin (0.02-0.09) ng/mL
--- NOTE | 2023-01-17 14:59 | P.PN ---
Subjective Progress Note Date: 01/17/23 I am seeing this patient in new consultation today 01/16/2023 for suspected left lower lobe pneumonia. Patient is a 77-year-old white female with past medical history significant for asthma, paroxysmal atrial fibrillation, hypertension, previous intentional overdose, and bipolar disorder. Patient does follow in the office with Dr. Judd for moderate persistent asthma. Patient is normally maintained on a combination of Trelegy inhaler and albuterol. Patient was recently treated in the office for asthma exacerbation with steroid burst taper. Patient is also on Singular. Patient presented to the emergency room on January 14 for substernal chest pain. Pain is worse with deep inspiration and palpation. No evidence of acute coronary syndrome. ECG showed no ischemic changes. Troponins less than 0.012. There are concerns for pneumonia. Chest x-ray from 2 days ago show left lower lobe airspace opacity which may reflect atelectasis versus infiltrate. Patient is intermittently febrile this admission with a T- max of 100.2F. Patient is currently in bed, on 3 L/m nasal cannula, in no acute distress. She is refusing to provide any additional information at this time. She states that she just wants to go back to bed. Patient was started on a combination of azithromycin and Rocephin. Procalcitonin level was elevated at 0.95. Most recent CBC from yesterday shows a WBC count of 11, hemoglobin 10, hematocrit 30, platelets 251. BMP shows sodium 134, potassium 4.5, chloride 102, serum bicarbonate 23, BUN 36, creatinine 1.14, glucose 113. Negative for COVID-19. Currently on a combination of bronchodilators and Symbicort inhaler. Asthma does not appear active. Patient appears nontoxic, and is hemodynamically stable. On today's evaluation of 01/17/2023, the patient is doing well. Much improved in terms of her breathing and she is having any significant shortness of breath. She is afebrile. Pulse ox of 97% on room air oxygen. No chest pain. No pleurisy. No cough or sputum production. No fever. BUN is at 40 with a creatinine of 0.8. Sodium is at 134, the white cell count is at 14.5 with a hemoglobin of 11.3. Platelet count is at 376. Blood sugar from today is at 245. The patient be able to discharge home today on a prednisone burst taper and Symbicort in addition to a course of antibiotics to be taken on outpatient basis. Objective - Vital Signs Vital signs: Vital Signs Temp 98 F 01/17/23 09:40 Pulse 130 H 01/17/23 12:00 Resp 16 01/17/23 12:00 BP 122/83 01/17/23 12:00 Pulse Ox 98 01/17/23 12:26 FiO2 Intake & Output 01/16/23 01/17/23 01/17/23 18:59 06:59 18:59 Intake Total 594 600 Output Total 575 800 Balance 19 -800 600 Intake: Oral 594 600 Output: Urine 575 800 Other: Voiding Method Toilet Toilet # Voids 2 # Bowel Movements 1 - Exam GENERAL EXAM: Alert, non-cooperative, 77-year-old female appearing stated age, fairly comfortable in no apparent distress. HEAD: Normocephalic and atraumatic EYES: Normal reaction of pupils, equal size. NOSE: Clear with pink turbinates. THROAT: No erythema or exudates. NECK: No masses, no JVD. CHEST: No chest wall deformity. LUNGS: Equal air entry with no crackles, wheeze, rhonchi or dullness. On 3 L/m nasal cannula. No conversational dyspnea or accessory muscle use.. CVS: S1 and S2 normal with no audible murmur, irregular rhythm. No extra heart sounds ABDOMEN: No hepatosplenomegaly, active bowel sounds, no guarding or rigidity. SPINE: No scoliosis or deformity SKIN: No rashes CENTRAL NERVOUS SYSTEM: No focal deficits, tone is normal in all 4 extremities. EXTREMITIES: There is no peripheral edema, clubbing, or cyanosis. Peripheral pulses are intact. - Labs CBC & Chem 7: 01/17/23 08:00 01/17/23 08:00 Labs: Abnormal Lab Results - Last 24 Hours (Table) 01/16/23 01/16/23 01/16/23 Range/Units 09:45 16:39 19:56 WBC (3.8-10.6) k/uL Hgb (11.4-16.0) gm/dL Neutrophils # (1.3-7.7) k/uL Lymphocytes # (1.0-4.8) k/uL ESR (0-20) mm/hr Sodium (137-145) mmol/L BUN (7-17) mg/dL Glucose (74-99) mg/dL POC Glucose (mg/dL) 184 H 145 H (70-110) mg/dL C-Reactive Protein (<1.0) mg/dL Procalcitonin 0.57 H (0.02-0.09) ng/mL 01/17/23 01/17/23 01/17/23 Range/Units 06:09 07:44 08:00 WBC 14.5 H (3.8-10.6) k/uL Hgb 11.3 L (11.4-16.0) gm/dL Neutrophils # 13.1 H (1.3-7.7) k/uL Lymphocytes # 0.7 L (1.0-4.8) k/uL ESR 58 H (0-20) mm/hr Sodium (137-145) mmol/L BUN (7-17) mg/dL Glucose (74-99) mg/dL POC Glucose (mg/dL) 177 H 147 H (70-110) mg/dL C-Reactive Protein (<1.0) mg/dL Procalcitonin (0.02-0.09) ng/mL 01/17/23 01/17/23 Range/Units 08:00 11:50 WBC (3.8-10.6) k/uL Hgb (11.4-16.0) gm/dL Neutrophils # (1.3-7.7) k/uL Lymphocytes # (1.0-4.8) k/uL ESR (0-20) mm/hr Sodium 134 L (137-145) mmol/L BUN 40 H (7-17) mg/dL Glucose 157 H (74-99) mg/dL POC Glucose (mg/dL) 245 H (70-110) mg/dL C-Reactive Protein 5.2 H (<1.0) mg/dL Procalcitonin (0.02-0.09) ng/mL Assessment and Plan Assessment: Acute hypoxemic respiratory failure, possibly secondary to community acquired pn eumonia. Currently on 3 L/m nasal cannula. Chest x-ray shows bibasilar patchy airspace opacities which may represent atelectasis versus infiltrate. The patient is improved clinically and the patient is currently on room air oxygen. No significant respiratory distress and she feels that her breathing status is back to her baseline. Moderate persistent asthma, currently not in exacerbation, improving Atypical chest pain, acute coronary syndrome ruled out, recovered Paroxysmal atrial fibrillation with controlled ventricular rate. Patient was tentatively scheduled for PABLITO and cardioversion on Sunday, this may have been rescheduled Benign essential hypertension Hyperlipidemia Bipolar disorder History of intentional overdose Plan: Clinically improved and the patient be able to discharge home and the Entocort and a prednisone burst taper and a course of antibiotics to be taken on outpatient basis Follow-up with pulmonary Follow-up with cardiology regarding atrial fibrillation possibility of cardioversion/ablation and the patient is on anticoagulants. Her pro-calcitonin level was low at 0.95 The patient anticoagulation with Eliquis 5 mg by mouth twice a day
--- NOTE | 2023-01-18 17:40 | P.DS ---
Providers Date of admission: 01/14/23 14:18 Expected date of discharge: 01/17/23 Attending physician: Emeterio Guerra Consults: 01/14/23 14:18 Consult Physician Urgent Consulting Provider: [facility] Consult Reason/Comments: Chest pain Do you want consulting provider notified?: Yes 01/15/23 10:02 Consult Physician Urgent Consulting Provider: Telly Jimenez Consult Reason/Comments: pna Do you want consulting provider notified?: Yes Primary care physician: Dez Bowen Hospital Course: Final diagnosis Chest pain, likely pleuritic Possible right basilar pneumonia, community-acquired Fever with leukocytosis, sepsis, present on admission secondary to pneumonia Acute hypoxic respiratory failure secondary to above Hyponatremia Atrial fibrillation Moderate persistent asthma history, not an exacerbation concerns for COPD Hypertension history History of depression on ECT therapy at [facility] GI prophylaxis DVT prophylaxis Full code Discharge disposition Patient is being discharged in a stable condition with guarded prognosis to home. Patient will follow-up with Dr. Bowen in the outpatient setting upon discharge. Patient is to continue with a short course of oral Ceftin for the next 5 days along with a prednisone taper and inhaler. Patient prescribed DuoNeb treatments to manage COPD. Patient to follow-up with pulmonary o utpatient as scheduled. Patient may need to reschedule possible ablation on Sunday with cardiology. Total time taken is greater than 35 minutes. Hospital course This is a 77-year-old female who was recently admitted with increasing shortness of breath and chest pain pain followed by multiple medical consultations. Pulmonary and cardiology evaluated the patient with concerns of community-acquir ed pneumonia with acute hypoxic respiratory failure. Patient was continued on DuoNeb treatments along with steroids and antibiotics. Patient continued with incentive spirometer and encourage the patient to continue outpatient at least 10 times every hour while awake. Patient has improved on shortness of breath and would recommend Ceftin twice daily for the next 5 days as well as DuoNeb treatments and outpatient follow-up with pulmonary. Patient has been cleared by consultations. Please refer to other consultation notes for further HPI. Currently no reports of chest pain, shortness of breath, or palpitations. Patient is afebrile. No reports of nausea or vomiting and patient is tolerating diet. Patient will be discharged home today. Physical exam: Gen: This is a 77-year-old female who is awake, alert and oriented 3, well- developed, well-nourished HEENT: Head is atraumatic, normocephalic. Pupils equal, round. Sclerae is anicteric. NECK: Supple. No JVD. No lymphadenopathy. No thyromegaly. LUNGS: Diminished breath sounds bilaterally with some scattered rhonchi. No intercostal retractions. HEART: S1, S2 are muffled, irregular ABDOMEN: Soft. Bowel sounds are present. No masses. No tenderness. EXTREMITIES: No pedal edema. No calf tenderness. NEUROLOGICAL: Patient is awake, alert and oriented x3. Cranial nerves 2 through 12 are grossly intact. Please refer to medication reconciliation sheet for a list of medications. The impression and plan of care has been dictated by Evie Garcia, Nurse Practitioner as directed. Dr. Evan MD I have performed a history and examination and MDM of this patient, discussed the same with the dictator, and agree with the dictator's assessment and plan as written ,documented as a scribe. Based on total visit time, I have performed more than 50% of the visit. Patient Condition at Discharge: Fair Plan - Discharge Summary Discharge Rx Participant: No New Discharge Prescriptions: New cefUROXime axetiL [Ceftin] 500 mg PO BID 1 Days #2 tab predniSONE 10 mg PO DIRECTED #30 tab Ipratropium-Albuterol Nebulize [Duoneb 0.5 mg-3 mg/3 ml Soln] 3 ml INHALATION QID #100 each Acetaminophen Tab [Tylenol] 650 mg PO Q6HR PRN tab PRN Reason: Fever And/ Or Pain Metoprolol Tartrate 25 mg PO BID #60 tab Continue Montelukast Sodium [Singulair] 10 mg PO HS Albuterol Sulfate [Albuterol Sulfate Hfa] 2 puff INHALATION RT-QID PRN PRN Reason: Shortness Of Breath Levothyroxine Sodium [Synthroid] 88 mcg PO DAILY@1200 Multivit-Min/Iron/Folic/Lutein [Centrum Silver Women Tablet] 1 tab PO DAILY@1200 Omeprazole 20 mg PO DAILY Alendronate Sodium [Fosamax] 70 mg PO AHMADI Cholecalciferol [Vitamin D3 (25 Mcg = 1000 Iu)] 50 mcg PO Q2D@1200 Budesonide/Formoterol Fumarate [Symbicort 80-4.5 Mcg Inhaler] 2 puff INHALATION RT-BID Apixaban [Eliquis] 5 mg PO BID buPROPion [Wellbutrin] 75 mg PO DAILY Divalproex Sodium [Depakote] 500 mg PO HS L.acidoph,Paracasei, B.lactis [Probiotic] 1 cap PO DAILY@1200 lisinopriL [Zestril] 10 mg PO BID QUEtiapine [SEROquel] 50 mg PO BID traZODone HCL [Desyrel] 50 mg PO HS PRN PRN Reason: Insomnia Folic Acid 0.8 mg PO DAILY@1200 Diltiazem Cd [Cardizem CD] 240 mg PO DAILY Flecainide [Tambocor] 50 mg PO BID Loratadine 10 mg PO DAILY Pravastatin Sodium [Pravachol] 40 mg PO HS QUEtiapine [SEROquel] 100 mg PO HS Discharge Medication List Albuterol Sulfate [Albuterol Sulfate Hfa] 2 puff INHALATION RT-QID PRN 03/12/20 [History] Levothyroxine Sodium [Synthroid] 88 mcg PO DAILY@1200 03/12/20 [History] Montelukast Sodium [Singulair] 10 mg PO HS 03/12/20 [History] Multivit-Min/Iron/Folic/Lutein [Centrum Silver Women Tablet] 1 tab PO DAILY@1200 03/12/20 [History] Omeprazole 20 mg PO DAILY 03/12/20 [History] Alendronate Sodium [Fosamax] 70 mg PO AHMADI 01/23/22 [History] Budesonide/Formoterol Fumarate [Symbicort 80-4.5 Mcg Inhaler] 2 puff INHALATION RT-BID 07/15/22 [History] Cholecalciferol [Vitamin D3 (25 Mcg = 1000 Iu)] 50 mcg PO Q2D@1200 07/15/22 [History] Folic Acid 0.8 mg PO DAILY@1200 07/15/22 [History] Apixaban [Eliquis] 5 mg PO BID 01/14/23 [History] Diltiazem Cd [Cardizem CD] 240 mg PO DAILY 01/14/23 [History] Divalproex Sodium [Depakote] 500 mg PO HS 01/14/23 [History] Flecainide [Tambocor] 50 mg PO BID 01/14/23 [History] L.acidoph,Paracasei, B.lactis [Probiotic] 1 cap PO DAILY@1200 01/14/23 [History] Loratadine 10 mg PO DAILY 01/14/23 [History] Pravastatin Sodium [Pravachol] 40 mg PO HS 01/14/23 [History] QUEtiapine [SEROquel] 50 mg PO BID 01/14/23 [History] QUEtiapine [SEROquel] 100 mg PO HS 01/14/23 [History] buPROPion [Wellbutrin] 75 mg PO DAILY 01/14/23 [History] lisinopriL [Zestril] 10 mg PO BID 01/14/23 [History] traZODone HCL [Desyrel] 50 mg PO HS PRN 01/14/23 [History] Acetaminophen Tab [Tylenol] 650 mg PO Q6HR PRN tab 01/17/23 [Rx] Ipratropium-Albuterol Nebulize [Duoneb 0.5 mg-3 mg/3 ml Soln] 3 ml INHALATION QID #100 each 01/17/23 [Rx] Metoprolol Tartrate 25 mg PO BID #60 tab 01/17/23 [Rx] cefUROXime axetiL [Ceftin] 500 mg PO BID 1 Days #2 tab 01/17/23 [Rx] predniSONE 10 mg PO DIRECTED #30 tab 01/17/23 [Rx] Follow up Appointment(s)/Referral(s): Holland De Leon DO [STAFF PHYSICIAN] - 01/24/23 8:30 am [facility] [NON-STAFF] - As Needed (Nebulizer) To Judd DO [Doctor of Osteopathic Medicine] - 03/01/23 2:00 pm (Office put the patient on a cancelllation list and if an appointment opens up earlier the office will call.) Dez Bowen DO [Primary Care Provider] - 01/18/23 2:00 pm Patient Instructions/Handouts: Chest Pain (DC) Activity/Diet/Wound Care/Special Instructions: Activity Limited until follow-up Follow-up primary care provider on discharge Follow-up pulmonary outpatient Continue taking medications as prescribed Continue follow-up with primary care provider as well as specialists Discharge Disposition: HOME SELF-CARE
== END 2023-01-17 14:33 | disposition home or self-care (01) | DRG 193 ==
LOC: EC 10:52 → 3SCARD 14:18
PROVIDERS: ADMIT Internal Medicine; ATTEND Internal Medicine
DX: J18.9 Pneumonia, unspecified organism (principal); J96.01 Acute respiratory failure with hypoxia; I48.19 Other persistent atrial fibrillation; E87.1 Hypo-osmolality and hyponatremia; I48.91 Unspecified atrial fibrillation; I10 Essential (primary) hypertension; E78.00 Pure hypercholesterolemia, unspecified; K21.9 Gastro-esophageal reflux disease without esophagitis; E78.5 Hyperlipidemia, unspecified; M19.90 Unspecified osteoarthritis, unspecified site; H54.8 Legal blindness, as defined in USA; J45.40 Moderate persistent asthma, uncomplicated; G62.9 Polyneuropathy, unspecified; F90.9 Attention-deficit hyperactivity disorder, unspecified type; F41.9 Anxiety disorder, unspecified; F31.9 Bipolar disorder, unspecified; I95.9 Hypotension, unspecified; E03.9 Hypothyroidism, unspecified; Z96.643 Presence of artificial hip joint, bilateral; Z20.822 Contact with and (suspected) exposure to COVID-19; Z79.01 Long term (current) use of anticoagulants; Z91.51 Personal history of suicidal behavior; Z79.899 Other long term (current) drug therapy; Z79.890 Hormone replacement therapy; Z79.83 Long term (current) use of bisphosphonates; Z79.51 Long term (current) use of inhaled steroids; Z87.891 Personal history of nicotine dependence; Z88.3 Allergy status to other anti-infective agents; Z88.8 Allergy status to other drugs, medicaments and biological substances; Z88.6 Allergy status to analgesic agent; Z88.4 Allergy status to anesthetic agent; Z88.5 Allergy status to narcotic agent
CPT/HCPCS: 36415; 71045; 71046; 80048; 80053; 80061; 81001; 82150; 83036; 83735; 83880; 84145; 84484; 85025; 85610; 85652; 85730; 86140; 87449; 87635; 93005; 93306; 94640; 94760; 96372; 96374; 99285

== ENCOUNTER 2023-01-30 10:27 | Observation (INO) | payer MEDICARE ==
[2023-01-30] MEDS ORDERED: IPRATROPIUM-ALBUTEROL 3 ML NEB INHALATION STA (10:49)
[2023-01-30] MEDS ORDERED: methylPREDNISolone SOD SUCCI 125 MG/2 ML VIAL IV STA (10:49)
--- NOTE | 2023-01-30 10:52 | ED ---
General Adult HPI - General Chief complaint: Shortness of Breath Stated complaint: SOB Time Seen by Provider: 01/30/23 10:32 Source: patient, family, RN notes reviewed Mode of arrival: wheelchair Limitations: no limitations - History of Present Illness Initial comments: Patient is a pleasant 77-year-old female presenting to the emergency department with difficulty breathing. Onset of symptoms was the past week or so. Patient was in the hospital a few weeks ago with pneumonia. Patient does have history of atrial fibrillation and is on oral anticoagulation for this and has been taking them. No significant cough. Patient has mild leg swelling at times. No calf pain. No fevers. Patient did have nebulizer treatment at home without much improvement of symptoms. - Related Data Home Medications Medication Instructions Recorded Confirmed Albuterol Sulfate [Albuterol 2 puff INHALATION RT-QID PRN 03/12/20 01/30/23 Sulfate Hfa] Levothyroxine Sodium [Synthroid] 88 mcg PO DAILY@1200 03/12/20 01/30/23 Montelukast Sodium [Singulair] 10 mg PO 03/12/20 01/30/23 Multivit-Min/Iron/Folic/Lutein 1 tab PO DAILY@1200 03/12/20 01/30/23 [Centrum Silver Women Tablet] Omeprazole 20 mg PO DAILY 03/12/20 01/30/23 Alendronate Sodium [Fosamax] 70 mg PO AHMADI 01/23/22 01/30/23 Budesonide/Formoterol Fumarate 2 puff INHALATION RT-BID 07/15/22 01/30/23 [Symbicort 80-4.5 Mcg Inhaler] Cholecalciferol [Vitamin D3 (25 50 mcg PO Q2D@1200 07/15/22 01/30/23 Mcg = 1000 Iu)] Folic Acid 0.8 mg PO DAILY@1200 07/15/22 01/30/23 Apixaban [Eliquis] 5 mg PO BID 01/14/23 01/30/23 Diltiazem Cd [Cardizem CD] 240 mg PO DAILY 01/14/23 01/30/23 Divalproex Sodium [Depakote] 500 mg PO HS 01/14/23 01/30/23 Flecainide [Tambocor] 50 mg PO BID 01/14/23 01/30/23 L.acidoph,Paracasei, B.lactis 1 cap PO DAILY@1200 01/14/23 01/30/23 [Probiotic] Loratadine 10 mg PO DAILY 01/14/23 01/30/23 Pravastatin Sodium [Pravachol] 40 mg PO HS 01/14/23 01/30/23 QUEtiapine [SEROquel] 50 mg PO BID 01/14/23 01/30/23 QUEtiapine [SEROquel] 100 mg PO HS 01/14/23 01/30/23 buPROPion [Wellbutrin] 75 mg PO DAILY 01/14/23 01/30/23 lisinopriL [Zestril] 10 mg PO BID 01/14/23 01/30/23 traZODone HCL [Desyrel] 50 mg PO HS PRN 01/14/23 01/30/23 Chlorthalidone 25 mg PO DAILY PRN 01/30/23 01/30/23 Previous Rx's Medication Instructions Recorded Acetaminophen Tab [Tylenol] 650 mg PO Q6HR PRN tab 01/17/23 Metoprolol Tartrate 25 mg PO BID #60 tab 01/17/23 Allergies Allergy/AdvReac Type Severity Reaction Status Date / Time buspirone [From BuSpar] AdvReac Insomnia Verified 01/30/23 10:32 fluticasone furoate AdvReac HTN Verified 01/30/23 10:32 [From Trelegy Ellipta] lurasidone [From Latuda] AdvReac Parkinson Verified 01/30/23 10:32 Symptoms Opioids - Morphine Analogues AdvReac AGITATION Verified 01/30/23 10:32 Opioids-Meperidine and AdvReac AGITATION Verified 01/30/23 10:32 Related spironolactone AdvReac ANXIETY Verified 01/30/23 10:32 [From Aldactone] AND DEPRESSION umeclidinium AdvReac HTN Verified 01/30/23 10:32 [From Trelegy Ellipta] vilanterol AdvReac HTN Verified 01/30/23 10:32 [From Trelegy Ellipta] OPIATES AdvReac Unknown AGITATION Uncoded 01/30/23 10:32 Review of Systems ROS Statement: Those systems with pertinent positive or pertinent negative responses have been documented in the HPI. ROS Other: All systems not noted in ROS Statement are negative. Constitutional: Denies: fever, chills Eyes: Denies: eye pain ENT: Denies: ear pain Respiratory: Reports: as per HPI, dyspnea Cardiovascular: Denies: chest pain Endocrine: Reports: fatigue Gastrointestinal: Denies: abdominal pain Genitourinary: Denies: dysuria Musculoskeletal: Denies: back pain Skin: Denies: rash Neurological: Denies: weakness Past Medical History Past Medical History: Atrial Fibrillation, Asthma, GERD/Reflux, Hyperlipidemia, Hypertension, Osteoarthritis (OA), Thyroid Disorder Additional Past Medical History / Comment(s): SOB inceased since afib dx in October 2022,recent January 2023 admission for pneumonia-last dose prednisone taper 01-30-23, Insomnia, past migraines,PAST HYPERTENSION , sinus problems at times,HIP DISLOCATION X20, legally blind Lt eye,Covid infection spring 2021 History of Any Multi-Drug Resistant Organisms: None Reported Past Surgical History: Bariatric Surgery, Joint Replacement, Orthopedic Surgery, Tubal Ligation Additional Past Surgical History / Comment(s): 2003 lap band, panniculectomy, R hip ORIF/total arthroplasty, L hip arthroplasty x 2, r knee ACL repair and total right arthroplasty, R thumb sx, D&Cs, EGDs/colonoscopies, R breast benign bx. EGD Past Anesthesia/Blood Transfusion Reactions: No Reported Reaction Past Psychological History: ADD/ADHD, Anxiety, Bipolar, Depression Smoking Status: Former smoker - Past Family History Mother History Unknown: Yes Family Medical History: Cancer Additional Family Medical History / Comment(s): BLADDER CA- AT 70 YEARS OLD. Father History Unknown: Yes Family Medical History: Coronary Artery Disease (CAD), Myocardial Infarction (MT) Additional Family Medical History / Comment(s): AT 60 YRS OLD General Exam Limitations: no limitations General appearance: alert Head exam: Present: normocephalic Eye exam: Present: normal appearance Neck exam: Present: normal inspection Respiratory exam: Present: respiratory distress, wheezes, decreased breath sounds Cardiovascular Exam: Present: tachycardia, irregular rhythm GI/Abdominal exam: Present: soft. Absent: tenderness Extremities exam: Present: normal inspection. Absent: pedal edema, calf tenderness Neurological exam: Present: alert Psychiatric exam: Present: normal affect, normal mood Skin exam: Present: normal color Course Vital Signs 01/30/23 01/30/23 01/30/23 10:28 11:37 11:47 Temperature 97.6 F Pulse Rate 105 H 87 92 Respiratory 22 Rate Blood Pressure 105/68 O2 Sat by Pulse 91 L Oximetry EKG Findings - EKG Results: EKG: interpreted by JASEND (Right axis. Septal Q waves.), normal ST/T EKG shows: atrial fibrillation Medical Decision Making - Medical Decision Making Was pt. sent in by a medical professional or institution (, PA, CABIN AGENT, urgent care, hospital, or long-term...) When possible be specific @ -No Did you speak to anyone other than the patient for history (EMS, parent, family, police, friend...)? What history was obtained from this source @ -History is also taken from the who is a better historian Did you review nursing and triage notes (agree or disagree)? Why? @ -I reviewed and agree with nursing and triage notes Were old charts reviewed (outside hosp., previous admission, EMS record, old EKG, old radiological studies, urgent care reports/EKG's, long-term records)? Report findings @ -Previous x-rays reviewed. Last x-ray does have some increased markings left lower lobe as well Differential Diagnosis (chest pain, altered mental status, abdominal pain women, abdominal pain men, vaginal bleeding, weakness, fever, dyspnea, syncope, headache, dizziness, GI bleed, back pain, seizure, CVA, palpatations, mental health, musculoskeletal)? @ -Differential Dyspnea: Coronary syndrome, arrhythmia, tamponade, asthma, COPD, pulmonary embolism, pneumonia, pneumothorax, pulmonary effusion, anaphylaxis, diabetic ketoacidosis, flailed chest, pulmonary contusion, diaphragmatic rupture, anemia, neuromuscular, this is not meant to be an all-inclusive list. EKG interpreted by me (3pts min.). @ -As above X-rays interpreted by me (1pt min.). @ -Chest x-ray shows nonspecific increased markings left lower lobe CT interpreted by me (1pt min.). @ -None done U/S interpreted by me (1pt. min.). @ -None done What testing was considered but not performed or refused? (CT, X-rays, U/S, labs)? Why? @ -None What meds were considered but not given or refused? Why? @ -None Did you discuss the management of the patient with other professionals (professionals i.e. , PA, CABIN AGENT, lab, RT, psych nurse, social staff worker, parts identifier, teacher, seismology technical officer, protective services case worker)? Give summary @ -Case was discussed with Dr. Rivera, who will admit covering for Dr. Reza, who admits covering Dr. Bowen. Case was also discussed with Dr. Eisenberg, who will consult for pulmonary. Was smoking cessation discussed for >3mins.? @ -No Was critical care preformed (if so, how long)? @ -No Were there social determinants of health that impacted care today? How? (Homelessness, low income, unemployed, alcoholism, drug addiction, transportation, low edu. Level, literacy, decrease access to med. care, usp, rehab)? @ -No Was there de-escalation of care discussed even if they declined (Discuss DNR or withdrawal of care, Hospice)? DNR status @ -No What co-morbidities impacted this encounter? (DM, HTN, Smoking, COPD, CAD, Cancer, CVA, ARF, Chemo, Hep., AIDS, mental health diagnosis, sleep apnea, morbid obesity)? @ -None Was patient admitted / discharged? Hospital course, mention meds given and route, prescriptions, significant lab abnormalities, going to OR and other pert inent info. @ -Patient reevaluated with mild improvement. Patient updated on plan. Patient will be admitted with pulmonary consult. Undiagnosed new problem with uncertain prognosis? @ -No Drug Therapy requiring intensive monitoring for toxicity (Heparin, Nitro, Insulin, Cardizem)? @ -No Were any procedures done? @ -No Diagnosis/symptom? @ -Asthma exacerbation Acute, or Chronic, or Acute on Chronic? @ -Acute Uncomplicated (without systemic symptoms) or Complicated (systemic symptoms)? @ -default Side effects of treatment? @ -No Exacerbation, Progression, or Severe Exacerbation? @ -No Poses a threat to life or bodily function? How? (Chest pain, USA, MT, pneumonia, PE, COPD, DKA, ARF, appy, cholecystitis, CVA, Diverticulitis, Homicidal, Suicidal, threat to staff... and all critical care pts) @ -No - Lab Data Result diagrams: 01/30/23 11:07 01/30/23 11:07 Lab Results 01/30/23 01/30/23 01/30/23 Range/Units 11:04 11:07 11:07 WBC 21.0 H (3.8-10.6) k/uL RBC 3.31 L (3.80-5.40) m/uL Hgb 10.2 L (11.4-16.0) gm/dL Hct 30.4 L (34.0-46.0) % MCV 91.7 (80.0-100.0) fL MCH 30.8 (25.0-35.0) pg MCHC 33.5 (31.0-37.0) g/dL RDW 13.9 (11.5-15.5) % Plt Count 393 (150-450) k/uL MPV 8.5 Neutrophils % 90 % Lymphocytes % 4 % Monocytes % 4 % Eosinophils % 2 % Basophils % 0 % Neutrophils # 19.0 H (1.3-7.7) k/uL Lymphocytes # 0.8 L (1.0-4.8) k/uL Monocytes # 0.8 (0-1.0) k/uL Eosinophils # 0.4 (0-0.7) k/uL Basophils # 0.0 (0-0.2) k/uL PT 11.1 (9.0-12.0) sec INR 1.1 (<1.2) APTT 26.0 (22.0-30.0) sec Sodium (137-145) mmol/L Potassium (3.5-5.1) mmol/L Chloride (98-107) mmol/L Carbon Dioxide (22-30) mmol/L Anion Gap mmol/L BUN (7-17) mg/dL Creatinine (0.52-1.04) mg/dL Est GFR (CKD-EPI)AfAm (>60 ml/min/1.73 sqM) Est GFR (CKD-EPI)NonAf (>60 ml/min/1.73 sqM) Glucose (74-99) mg/dL Plasma Lactic Acid Ramez (0.7-2.0) mmol/L Calcium (8.4-10.2) mg/dL Magnesium (1.6-2.3) mg/dL Total Bilirubin (0.2-1.3) mg/dL AST (14-36) U/L ALT (4-34) U/L Alkaline Phosphatase (38-126) U/L Troponin I (0.000-0.034) ng/mL NT-Pro-B Natriuret Pep pg/mL Total Protein (6.3-8.2) g/dL Albumin (3.5-5.0) g/dL Influenza Type A (PCR) Not Detected (Not Detectd) Influenza Type B (PCR) Not Detected (Not Detectd) RSV (PCR) Not Detected (Not Detectd) SARS-CoV-2 (PCR) Not Detected (Not Detectd) 01/30/23 01/30/23 01/30/23 Range/Units 11:07 11:07 11:07 WBC (3.8-10.6) k/uL RBC (3.80-5.40) m/uL Hgb (11.4-16.0) gm/dL Hct (34.0-46.0) % MCV (80.0-100.0) fL MCH (25.0-35.0) pg MCHC (31.0-37.0) g/dL RDW (11.5-15.5) % Plt Count (150-450) k/uL MPV Neutrophils % % Lymphocytes % % Monocytes % % Eosinophils % % Basophils % % Neutrophils # (1.3-7.7) k/uL Lymphocytes # (1.0-4.8) k/uL Monocytes # (0-1.0) k/uL Eosinophils # (0-0.7) k/uL Basophils # (0-0.2) k/uL PT (9.0-12.0) sec INR (<1.2) APTT (22.0-30.0) sec Sodium 137 (137-145) mmol/L Potassium 4.4 (3.5-5.1) mmol/L Chloride 103 (98-107) mmol/L Carbon Dioxide 24 (22-30) mmol/L Anion Gap 10 mmol/L BUN 21 H (7-17) mg/dL Creatinine 0.71 (0.52-1.04) mg/dL Est GFR (CKD-EPI)AfAm >90 (>60 ml/min/1.73 sqM) Est GFR (CKD-EPI)NonAf 83 (>60 ml/min/1.73 sqM) Glucose 153 H (74-99) mg/dL Plasma Lactic Acid Ramez 1.1 (0.7-2.0) mmol/L Calcium 8.0 L (8.4-10.2) mg/dL Magnesium 2.1 (1.6-2.3) mg/dL Total Bilirubin 0.4 (0.2-1.3) mg/dL AST 20 (14-36) U/L ALT 15 (4-34) U/L Alkaline Phosphatase 66 (38-126) U/L Troponin I <0.012 (0.000-0.034) ng/mL NT-Pro-B Natriuret Pep 802 pg/mL Total Protein 6.2 L (6.3-8.2) g/dL Albumin 3.2 L (3.5-5.0) g/dL Influenza Type A (PCR) (Not Detectd) Influenza Type B (PCR) (Not Detectd) RSV (PCR) (Not Detectd) SARS-CoV-2 (PCR) (Not Detectd) Disposition Clinical Impression: Asthma with acute exacerbation Disposition: ADMITTED IP TO THIS HOSP Is patient prescribed a controlled substance at d/c from ED?: No Referrals: Dez Bowen DO [Primary Care Provider] - 1-2 days Time of Disposition: 13:13
[2023-01-30 11:14] LABS: Basophils % (A) 0 %; Eosinophils # (A) 0.4 k/uL (0-0.7); Eosinophils % (A) 2 %; HCT 30.4 % (34.0-46.0); HGB 10.2 gm/dL (11.4-16.0); Lymphocytes # (A) 0.8 k/uL (1.0-4.8); Lymphocytes % (A) 4 %; MCH 30.8 pg (25.0-35.0); MCHC 33.5 g/dL (31.0-37.0); MCV 91.7 fL (80.0-100.0); Mean Platelet Volume 8.5; Monocytes # (A) 0.8 k/uL (0-1.0); Monocytes % (A) 4 %; Neutrophils % (A) 90 %; Platelet Count 393 k/uL (150-450); RBC 3.31 m/uL (3.80-5.40); RDW 13.9 % (11.5-15.5)
--- NOTE | 2023-01-30 11:33 | XR ---
EXAMINATION TYPE: XR chest 2V DATE OF EXAM: 01/30/2023 COMPARISON: 01/16/2023 HISTORY: Shortness of breath TECHNIQUE: Frontal and lateral views of the chest are obtained. FINDINGS: Scattered senescent parenchymal changes noted. Hyperinflation compatible with COPD. There is pulmonary venous congestion with cardiomegaly. Patchy density left lower lobe could reflect atelectasis or infiltrate. Mediastinal structures are stable and grossly unremarkable. No evidence for hilar prominence. Degenerative changes dorsal spine. IMPRESSION: 1. Mild CHF suggested. Infiltrate of other etiology at the left lung base is difficult to exclude. Co rrelate clinically.
[2023-01-30 11:34] LABS: ALT 15 U/L (4-34); AST 20 U/L (14-36); African American GFR (CKD) >90 (>60 ml/min/1.73 sqM); Albumin 3.2 g/dL (3.5-5.0); Alkaline Phosphatase 66 U/L (38-126); Anion Gap 10 mmol/L; Blood Urea Nitrogen 21 mg/dL (7-17); Carbon Dioxide 24 mmol/L (22-30); Chloride 103 mmol/L (98-107); Glucose 153 mg/dL (74-99); Magnesium 2.1 mg/dL (1.6-2.3); Non-African American GFR(CKD) 83 (>60 ml/min/1.73 sqM); Potassium 4.4 mmol/L (3.5-5.1); Sodium 137 mmol/L (137-145); Total Bilirubin 0.4 mg/dL (0.2-1.3); Total Protein 6.2 g/dL (6.3-8.2)
[2023-01-30 11:39] LABS: INR 1.1 (<1.2); Prothrombin Time 11.1 sec (9.0-12.0)
[2023-01-30 11:42] LABS: NT-Pro-B-Type Natriuretic Pept 802 pg/mL
[2023-01-30] MEDS ORDERED: ACETAMINOPHEN TAB 325 MG TAB PO STA (12:43)
--- NOTE | 2023-01-30 12:49 | P.HPIM ---
History of Present Illness Patient is a pleasant 77-year-old female came in with compensative from as of breath is on 2 L of she usually doesn't wear any oxygen at home patient does have a cough without any significant sputum production was recently treated for pneumonia and asthma exacerbation. Patient is admitted for asthma exacerbation patient is saturating at 91% severely better compared to yesterday patient is negative for influenza, RSV and COVID-19. Chest x-ray is suspicious for pulmonary edema although patient's BNP is only 800, patient does have leukocytosis probably secondary to systemic steroids she was on which she completed yesterday. Patient denied any fever chills. Pro-calcitonin will be ordered. REVIEW OF SYSTEMS: CONSTITUTIONAL: No fever, no malaise, no fatigue. HEENT: No recent visual problems or hearing problems. Denied any sore throat. CARDIOVASCULAR: No chest pain, orthopnea, PND, no palpitations, no syncope. PULMONARY: no hemoptysis. GASTROINTESTINAL: No diarrhea, no nausea, no vomiting, no abdominal pain. NEUROLOGICAL: No headaches, no weakness, no numbness. HEMATOLOGICAL: Denies any bleeding or petechiae. GENITOURINARY: Denies any burning micturition, frequency, or urgency. MUSCULOSKELETAL/RHEUMATOLOGICAL: Denies any joint pain, swelling, or any muscle pain. ENDOCRINE: Denies any polyuria or polydipsia. The rest of the 14-point review of systems is negative. PHYSICAL EXAMINATION: GENERAL: The patient is alert and oriented x3, not in any acute distress. Well developed, well nourished. HEENT: Pupils are round and equally reacting to light. EOMI. No scleral icterus. No conjunctival pallor. Normocephalic, atraumatic. No pharyngeal erythema. No thyromegaly. CARDIOVASCULAR: S1 and S2 present. No murmurs, rubs, or gallops. PULMONARY: Mild expiratory wheezing without any crackles ABDOMEN: Soft, nontender, nondistended, normoactive bowel sounds. No palpable organomegaly. MUSCULOSKELETAL: No joint swelling or deformity. EXTREMITIES: No cyanosis, clubbing, or pedal edema. NEUROLOGICAL: Gross neurological examination did not reveal any focal deficits. SKIN: No rashes. Assessment and plan -Possible asthma exacerbation: Patient was started on systemic steroids inhalational treatments, will not require any antibiotics, pulmonary will be consulted to -Leukocytosis secondary to steroids she was on until yesterday -Chronic atrial fibrillation continue with anticoagulation patient is supposed to get cardioversion as an outpatient. Patient is presently rate controlled and having gases visual reflux disease -Hyperlipidemia -Hypertension hypothyroidism - DVT prophylaxis: Lovenox Past Medical History Past Medical History: Atrial Fibrillation, Asthma, GERD/Reflux, Hyperlipidemia, Hypertension, Osteoarthritis (OA), Thyroid Disorder Additional Past Medical History / Comment(s): SOB inceased since afib dx in October 2022,recent January 2023 admission for pneumonia-last dose prednisone taper 01-30-23, Insomnia, past migraines,PAST HYPERTENSION , sinus problems at times,HIP DISLOCATION X20, legally blind Lt eye,Covid infection spring 2021 History of Any Multi-Drug Resistant Organisms: None Reported Past Surgical History: Bariatric Surgery, Joint Replacement, Orthopedic Surgery, Tubal Ligation Additional Past Surgical History / Comment(s): 2004 lap band, panniculectomy, R hip ORIF/total arthroplasty, L hip arthroplasty x 2, r knee ACL repair and total right arthroplasty, R thumb sx, D&Cs, EGDs/colonoscopies, R breast benign bx. EG D Past Anesthesia/Blood Transfusion Reactions: No Reported Reaction Past Psychological History: ADD/ADHD, Anxiety, Bipolar, Depression Smoking Status: Former smoker - Past Family History Mother History Unknown: Yes Family Medical History: Cancer Additional Family Medical History / Comment(s): BLADDER CA- AT 70 YEARS OLD. Father History Unknown: Yes Family Medical History: Coronary Artery Disease (CAD), Myocardial Infarction ([place]) Additional Family Medical History / Comment(s): AT 60 YRS OLD Medications and Allergies Home Medications Medication Instructions Recorded Confirmed Type Albuterol Sulfate [Albuterol 2 puff INHALATION RT-QID PRN 03/12/20 01/30/23 History Sulfate Hfa] Levothyroxine Sodium [Synthroid] 88 mcg PO DAILY@119903/12/20 01/30/23 History Montelukast Sodium [Singulair] 10 mg PO HS 03/12/20 01/30/23 History Multivit-Min/Iron/Folic/Lutein 1 tab PO DAILY@1200 03/12/20 01/30/23 History [Centrum Silver Women Tablet] Omeprazole 20 mg PO DAILY 03/12/20 01/30/23 History Alendronate Sodium [Fosamax] 70 mg PO AHMADI 01/23/22 01/30/23 History Budesonide/Formoterol Fumarate 2 puff INHALATION RT-BID 07/15/22 01/30/23 History [Symbicort 80-4.5 Mcg Inhaler] Cholecalciferol [Vitamin D3 (25 50 mcg PO Q2D@1200 07/15/22 01/30/23 History Mcg = 1000 Iu)] Folic Acid 0.8 mg PO DAILY@1200 07/15/22 01/30/23 History Apixaban [Eliquis] 5 mg PO BID 01/14/23 01/30/23 History Diltiazem Cd [Cardizem CD] 240 mg PO DAILY 01/14/23 01/30/23 History Divalproex Sodium [Depakote] 500 mg PO HS 01/14/23 01/30/23 History Flecainide [Tambocor] 50 mg PO BID 01/14/23 01/30/23 History L.acidoph,Paracasei, B.lactis 1 cap PO DAILY@1200 01/14/23 01/30/23 History [Probiotic] Loratadine 10 mg PO DAILY 01/14/23 01/30/23 History Pravastatin Sodium [Pravachol] 40 mg PO HS 01/14/23 01/30/23 History QUEtiapine [SEROquel] 50 mg PO BID 01/14/23 01/30/23 History QUEtiapine [SEROquel] 100 mg PO HS 01/14/23 01/30/23 History buPROPion [Wellbutrin] 75 mg PO DAILY 01/14/23 01/30/23 History lisinopriL [Zestril] 10 mg PO BID 01/14/23 01/30/23 History traZODone HCL [Desyrel] 50 mg PO HS PRN 01/14/23 01/30/23 History Acetaminophen Tab [Tylenol] 650 mg PO Q6HR PRN tab 01/17/23 01/30/23 Rx Metoprolol Tartrate 25 mg PO BID #60 tab 01/17/23 01/30/23 Rx Chlorthalidone 25 mg PO DAILY PRN 01/30/23 01/30/23 History Allergies Allergy/AdvReac Type Severity Reaction Status Date / Time buspirone [From BuSpar] AdvReac Insomnia Verified 01/30/23 10:32 fluticasone furoate AdvReac HTN Verified 01/30/23 10:32 [From Trelegy Ellipta] lurasidone [From Latuda] AdvReac Parkinson Verified 01/30/23 10:32 Symptoms Opioids - Morphine Analogues AdvReac AGITATION Verified 01/30/23 10:32 Opioids-Meperidine and AdvReac AGITATION Verified 01/30/23 10:32 Related spironolactone AdvReac ANXIETY Verified 01/30/23 10:32 [From Aldactone] AND DEPRESSION umeclidinium AdvReac HTN Verified 01/30/23 10:32 [From Trelegy Ellipta] vilanterol AdvReac HTN Verified 01/30/23 10:32 [From Trelegy Ellipta] OPIATES AdvReac Unknown AGITATION Uncoded 01/30/23 10:32 Physical Exam Vitals: Vital Signs Temp Pulse Resp BP Pulse Ox 01/30/23 11:47 92 01/30/23 11:37 87 01/30/23 10:28 97.6 F 105 H 22 105/68 91 L Intake and Output 01/29/23 01/30/23 01/30/23 22:59 06:59 14:59 Other: Weight 65.771 kg Results CBC & Chem 7: 01/30/23 11:07 01/30/23 11:07 Labs: Abnormal Lab Results - Last 24 Hours (Table) 01/30/23 01/30/23 Range/Units 11:07 11:07 WBC 21.0 H (3.8-10.6) k/uL RBC 3.31 L (3.80-5.40) m/uL Hgb 10.2 L (11.4-16.0) gm/dL Hct 30.4 L (34.0-46.0) % Neutrophils # 19.0 H (1.3-7.7) k/uL Lymphocytes # 0.8 L (1.0-4.8) k/uL BUN 21 H (7-17) mg/dL Glucose 153 H (74-99) mg/dL Calcium 8.0 L (8.4-10.2) mg/dL Total Protein 6.2 L (6.3-8.2) g/dL Albumin 3.2 L (3.5-5.0) g/dL
[2023-01-30] MEDS ORDERED: NALOXONE 0.4 MG/ML 1 ML VIAL IVP PRN (13:11)
[2023-01-30] MEDS ORDERED: IPRATROPIUM-ALBUTEROL 3 ML NEB INHALATION PRN (13:11)
[2023-01-30] MEDS ORDERED: AZITHROMYCIN 500 MG in SODIUM CHLORIDE 0.9% 250 ML IVPB ONE (13:30)
[2023-01-30] MEDS ORDERED: ALBUTEROL NEBULIZED 2.5 MG/3 ML INHALATION PRN (15:27)
[2023-01-30] MEDS: IPRATROPIUM-ALBUTEROL 3 ML NEB INHALATION SCH ×2 (16:09→20:58)
[2023-01-30] MEDS: methylPREDNISolone SOD SUCCI 125 MG/2 ML VIAL IV SCH ×2 (19:30→22:13)
[2023-01-30] MEDS ORDERED: SYMBICORT 80-4.5 MCG INHALER INHALATION SCH (20:00)
[2023-01-30] MEDS ORDERED: lisinopriL 10 MG TAB PO SCH (21:00)
[2023-01-30] MEDS: APIXABAN 5 MG TAB PO SCH (22:11)
[2023-01-30] MEDS: QUEtiapine 50 MG TAB PO SCH (22:11)
[2023-01-30] MEDS: PRAVASTATIN SODIUM 40 MG TAB PO SCH (22:11)
[2023-01-30] MEDS: METOPROLOL TARTRATE 25 MG TAB PO SCH (22:12)
[2023-01-30] MEDS: MONTELUKAST 10 MG TAB PO SCH (22:12)
[2023-01-30] MEDS: ACETAMINOPHEN TAB 325 MG TAB PO PRN (22:12)
[2023-01-30] MEDS: QUEtiapine 100 MG TAB PO SCH (22:12)
[2023-01-30] MEDS: DIVALPROEX 500 MG TABLET.DR PO SCH (22:13)
[2023-01-30] MEDS: FLECAINIDE 50 MG TAB PO SCH (22:13)
[2023-01-30] MEDS: traZODone HCL 50 MG TAB PO PRN (22:23)
[2023-01-30] MEDS ORDERED: FUROSEMIDE 10 MG/ML 2 ML VIAL IV ONE (23:51)
[2023-01-31] MEDS ORDERED: BENZONATATE 100 MG CAP PO PRN (03:24)
--- NOTE | 2023-01-31 03:42 | P.CNPUL ---
History of Present Illness Consult date: 01/31/23 Requesting physician: Dawn Solis Reason for consult: asthma Chief complaint: Progressively worsening shortness of breath over the last 2 weeks History of present illness: I'm seeing this patient in consultation today 01/31/2023 for acute asthma exacerbation. Patient is a 77-year-old white female with past medical history significant for asthma, paroxysmal atrial fibrillation, hypertension, previous intentional overdose, and bipolar disorder. Her primary care provider is Dr. Audra Bowen. Patient does follow my office with Dr. Judd for moderate persistent asthma. Patient is normally maintained on a combination of Symbicort inhaler and Ventolin rescue inhaler. Patient was recently treated for a left lower lobe pneumonia and discharged on January 17 on a combination of Ceftin and prednisone taper. The patient has been tapering her steroids as ordered, and started to experience worsening shortness of breath and wheezing. She did come to the emergency room yesterday morning complaining of these symptoms. She denies any fever, chills, chest pain, hemoptysis. She states that she completed her course of antibiotics. She denies any sick contacts. She states that her shortness of breath is accompanied by wheezing and chest tightness. She does have a dry persistent cough. Denies any chest pain, heart palpitations, syncope, orthopnea, or lower extremity swelling. She is currently sitting up in bed, on 3 L/m nasal cannula, in no acute distress. She does have some significant expiratory wheezing on auscultation. Chest x-ray on arrival showed a persistent left lower lung base infiltrate that was unchanged from her recent x-rays. There was also very mild pulmonary vascular congestion and cardiomegaly. NT proBNP was not significantly elevated for age at 802. CBC on arrival did show some leukocytosis which is likely related to her steroid use. Her WBC coun t is 21, hemoglobin 10, hematocrit 30.4, platelets 393. BMP was unremarkable. She was negative for influenza, RSV, COVID-19. Patient was started on empiric azithromycin. She is afebrile. She is on a combination of DuoNeb's, Symbicort inhaler, and IV Solu-Medrol. Patient appears nontoxic and is hemodynamically stable. She will be monitored on the observation unit. Review of Systems REVIEW OF SYSTEMS: CONSTITUTIONAL: Denies any recent significant weight loss or weight gain. EYES: Denies change in vision. EARS, NOSE, MOUTH, THROAT: Denies headaches, denies sore throat. CARDIOVASCULAR: Denies chest pain, palpitations or syncopal episodes. RESPIRATORY: See HPI GASTROINTESTINAL: Denies change in appetite, abdominal pain, nausea and vomiting, or diarrhea GENITOURINARY: Denies hematuria, denies infections. MUSKULOSKELETAL: Denies pain, denies swelling. INTEGUMENTARY: Denies rash, denies eczema. NEUROLOGICAL: Denies recent memory loss, no recent seizure activity. PSYCHIATRIC: Denies anxiety, denies depression. HEMATOLOGIC/LYMPHATIC: Denies anemia, denies enlarged lymph node Past Medical History Past Medical History: Atrial Fibrillation, Asthma, GERD/Reflux, Hyperlipidemia, Hypertension, Osteoarthritis (OA), Thyroid Disorder Additional Past Medical History / Comment(s): SOB inceased since afib dx in October 2022,recent January 2023 admission for pneumonia-last dose prednisone taper 01-30-23, Insomnia, past migraines,PAST HYPERTENSION , sinus problems at time s,HIP DISLOCATION X20, legally blind Lt eye,Covid infection spring 2021 History of Any Multi-Drug Resistant Organisms: None Reported Past Surgical History: Bariatric Surgery, Joint Replacement, Orthopedic Surgery, Tubal Ligation Additional Past Surgical History / Comment(s): 2004 lap band, panniculectomy, R hip ORIF/total arthroplasty, L hip arthroplasty x 2, r knee ACL repair and total right arthroplasty, R thumb sx, D&Cs, EGDs/colonoscopies, R breast benign bx. EGD Past Anesthesia/Blood Transfusion Reactions: No Reported Reaction Past Psychological History: ADD/ADHD, Anxiety, Bipolar, Depression Additional Psychological History / Comment(s): PANIC ATTACK ,ADD, currently undergoing ECT treatments at [facility] for severe depression Smoking Status: Former smoker Past Alcohol Use History: Occasional Additional Past Alcohol Use History / Comment(s): QUIT SMOKING 1987 STARTED SMOKING AT AGE 17. SMOKED 1PPD. Past Drug Use History: None Reported - Past Family History Mother History Unknown: Yes Family Medical History: Cancer Additional Family Medical History / Comment(s): BLADDER CA- AT 70 YEARS OLD. Father History Unknown: Yes Family Medical History: Coronary Artery Disease (CAD), Myocardial Infarction ([place]) Additional Family Medical History / Comment(s): AT 60 YRS OLD Medications and Allergies Home Medications Medication Instructions Recorded Confirmed Type Albuterol Sulfate [Albuterol 2 puff INHALATION RT-QID PRN 03/12/20 01/30/23 History Sulfate Hfa] Levothyroxine Sodium [Synthroid] 88 mcg PO DAILY@1200 03/12/20 01/30/23 History Montelukast Sodium [Singulair] 10 mg PO HS 03/12/20 01/30/23 History Multivit-Min/Iron/Folic/Lutein 1 tab PO DAILY@1200 03/12/20 01/30/23 History [Centrum Silver Women Tablet] Omeprazole 20 mg PO DAILY 03/12/20 01/30/23 History Alendronate Sodium [Fosamax] 70 mg PO AHMADI 01/23/22 01/30/23 History Budesonide/Formoterol Fumarate 2 puff INHALATION RT-BID 07/15/22 01/30/23 History [Symbicort 80-4.5 Mcg Inhaler] Cholecalciferol [Vitamin D3 (25 50 mcg PO Q2D@1200 07/15/22 01/30/23 History Mcg = 1000 Iu)] Folic Acid 0.8 mg PO DAILY@1200 07/15/22 01/30/23 History Apixaban [Eliquis] 5 mg PO BID 01/14/23 01/30/23 History Diltiazem Cd [Cardizem CD] 240 mg PO DAILY 01/14/23 01/30/23 History Divalproex Sodium [Depakote] 500 mg PO HS 01/14/23 01/30/23 History Flecainide [Tambocor] 50 mg PO BID 01/14/23 01/30/23 History L.acidoph,Paracasei, B.lactis 1 cap PO DAILY@1200 01/14/23 01/30/23 History [Probiotic] Loratadine 10 mg PO DAILY 01/14/23 01/30/23 History Pravastatin Sodium [Pravachol] 40 mg PO HS 01/14/23 01/30/23 History QUEtiapine [SEROquel] 50 mg PO BID 01/14/23 01/30/23 History QUEtiapine [SEROquel] 100 mg PO HS 01/14/23 01/30/23 History buPROPion [Wellbutrin] 75 mg PO DAILY 01/14/23 01/30/23 History lisinopriL [Zestril] 10 mg PO BID 01/14/23 01/30/23 History traZODone HCL [Desyrel] 50 mg PO HS PRN 01/14/23 01/30/23 History Metoprolol Tartrate 25 mg PO BID #60 tab 01/17/23 01/30/23 Rx Chlorthalidone 25 mg PO DAILY PRN 01/30/23 01/30/23 History Allergies Allergy/AdvReac Type Severity Reaction Status Date / Time buspirone [From BuSpar] AdvReac Insomnia Verified 01/30/23 13:38 fluticasone furoate AdvReac HTN Verified 01/30/23 13:38 [From Trelegy Ellipta] lurasidone [From Latuda] AdvReac Parkinson Verified 01/30/23 13:38 Symptoms Opioids - Morphine Analogues AdvReac AGITATION Verified 01/30/23 13:38 Opioids-Meperidine and AdvReac AGITATION Verified 01/30/23 13:38 Related spironolactone AdvReac ANXIETY Verified 01/30/23 13:38 [From Aldactone] AND DEPRESSION umeclidinium AdvReac HTN Verified 01/30/23 13:38 [From Trelegy Ellipta] vilanterol AdvReac HTN Verified 01/30/23 13:38 [From Trelegy Ellipta] OPIATES AdvReac Unknown AGITATION Uncoded 01/30/23 13:38 Physical Exam Vitals: Vital Signs Temp Pulse Pulse Resp BP BP Pulse Ox 01/31/23 02:16 98.4 F 86 16 128/65 98 01/30/23 21:09 94 01/30/23 21:01 94 01/30/23 20:27 98.2 F 95 15 121/77 97 01/30/23 19:30 96 20 117/79 97 01/30/23 17:41 92 18 96 01/30/23 16:47 99 20 110/83 93 L 01/30/23 16:19 96 01/30/23 16:13 95 01/30/23 16:09 92 01/30/23 14:51 98 20 114/89 94 L 01/30/23 13:43 97.9 F 98 20 111/71 92 L 01/30/23 11:47 92 01/30/23 11:37 87 01/30/23 10:28 97.6 F 105 H 22 105/68 91 L Intake and Output 01/30/23 01/30/23 01/31/23 14:59 22:59 06:59 Other: # Voids 1 Weight 65.771 kg GENERAL EXAM: Alert, 77-year-old white female appearing stated age, comfortable in no apparent distress. HEAD: Normocephalic and atraumatic EYES: Normal reaction of pupils, equal size. NOSE: Clear with pink turbinates. THROAT: No erythema or exudates. NECK: No masses, no JVD. CHEST: No chest wall deformity. LUNGS: Equal air entry with expiratory wheezes heard throughout. No rhonchi, crackles, or focal dullness. On 3 L/m nasal cannula. No conversational dyspnea or accessory muscle use. She does have a dry persistent cough. CVS: S1 and S2 normal with no audible murmur, irregular rhythm. No extra heart sounds. Heart rate 94 bpm. ABDOMEN: No hepatosplenomegaly, active bowel sounds, no guarding or rigidity. SPINE: No scoliosis or deformity SKIN: No rashes CENTRAL NERVOUS SYSTEM: No focal deficits, tone is normal in all 4 extremities. EXTREMITIES: There is 1+ bilateral lower extremity pitting edema. No clubbing, or cyanosis. Peripheral pulses are intact. Results - Laboratory Findings CBC and BMP: 01/30/23 11:07 01/30/23 11:07 PT/INR, D-dimer PT 11.1 sec (9.0-12.0) 01/30/23 11:07 INR 1.1 (<1.2) 01/30/23 11:07 Abnormal lab findings: Abnormal Labs 01/30/23 01/30/23 11:07 11:07 WBC 21.0 H RBC 3.31 L Hgb 10.2 L Hct 30.4 L Neutrophils # 19.0 H Lymphocytes # 0.8 L BUN 21 H Glucose 153 H Calcium 8.0 L Total Protein 6.2 L Albumin 3.2 L - Diagnostic Findings Chest x-ray: image reviewed Assessment and Plan Assessment: Acute exacerbation of moderate persistent bronchial asthma. Chest x-ray on arrival did show a persistent left lower lobe infiltrate versus atelectasis. She was just recently treated inpatient for left lower lobe pneumonia, and completed a course of Ceftin at home. There was also some mild pulmonary vascular congestion. NT proBNP was only mildly elevated at 800, which is relatively low for age. Negative for influenza, RSV, COVID-19. Possible mild exacerbation of diastolic congestive heart failure. Most recent echocardiogram done earlier this month shows a preserved ejection fraction of 55-60%, and no significant valvular abnormalities reported. Acute hypoxemic respiratory failure secondary to above, on 3 L/m nasal cannula. Leukocytosis, likely related to steroids Chronic paroxysmal atrial fibrillation, currently with controlled ventricular rate, anticoagulated on Eliquis Benign essential hypertension Hyperlipidemia Bipolar disorder History of intentional overdose Plan: Patient's medications, labs, chest x-ray reviewed Continue supplemental oxygen to maintain oxygen saturations 92% or greater Start patient on combination of DuoNeb's, Symbicort inhaler, and IV Solu-Medrol Continue empiric azithromycin and check procalcitonin level Add Tessalon Perles for antitussive Given a one-time dose of Lasix 20 mg IV once Anticoagulated on Eliquis We will continue to follow I have personally seen and examined the patient, performed the documentation and the assessment and plan as written. Number of minutes spent on the visit: 20 Time with Patient: Greater than 30
[2023-01-31] MEDS: methylPREDNISolone SOD SUCCI 125 MG/2 ML VIAL IV SCH (06:28)
[2023-01-31] MEDS: PANTOPRAZOLE 40 MG TABLET PO SCH (06:28)
[2023-01-31] MEDS: SYMBICORT 160-4.5 MCG INHALER INHALATION SCH ×2 (07:55→18:24)
[2023-01-31] MEDS: IPRATROPIUM-ALBUTEROL 3 ML NEB INHALATION SCH ×4 (07:55→18:24)
[2023-01-31] MEDS: METOPROLOL TARTRATE 25 MG TAB PO SCH ×2 (09:11→21:14)
[2023-01-31] MEDS: DILTIAZEM CD 240 MG CAP.ER.24H PO SCH (09:11)
[2023-01-31] MEDS: FLECAINIDE 50 MG TAB PO SCH ×2 (09:11→21:14)
[2023-01-31] MEDS: APIXABAN 5 MG TAB PO SCH ×2 (09:11→21:14)
[2023-01-31] MEDS: LORATADINE 10 MG TAB PO SCH (09:11)
[2023-01-31] MEDS: buPROPion 75 MG TAB PO SCH (09:11)
[2023-01-31] MEDS: QUEtiapine 50 MG TAB PO SCH ×2 (09:17→21:14)
[2023-01-31] MEDS ORDERED: AZITHROMYCIN 500 MG TAB PO SCH (10:00)
[2023-01-31 10:28] LABS: Basophils % (A) 0 %; Eosinophils # (A) 0.2 k/uL (0-0.7); Eosinophils % (A) 1 %; HCT 31.9 % (34.0-46.0); Hypochromasia Moderate; Lymphocytes # (A) 0.6 k/uL (1.0-4.8); Lymphocytes % (A) 2 %; MCH 30.3 pg (25.0-35.0); MCHC 31.4 g/dL (31.0-37.0); MCV 96.4 fL (80.0-100.0); Mean Platelet Volume 8.2; Monocytes # (A) 0.6 k/uL (0-1.0); Monocytes % (A) 3 %; Neutrophils # (A) 22.2 k/uL (1.3-7.7); Neutrophils % (A) 94 %; Platelet Count 366 k/uL (150-450); RBC 3.31 m/uL (3.80-5.40); RDW 13.6 % (11.5-15.5); WBC 23.7 k/uL (3.8-10.6)
[2023-01-31] MEDS: methylPREDNISolone SOD SUCCI 40 MG/ML 1 ML VIAL IV SCH ×2 (10:36→21:13)
--- NOTE | 2023-01-31 10:37 | P.CRDCN ---
History of Present Illness Consult date: 01/31/23 Consult reason: atrial fibrillation History of present illness: HISTORY OF PRESENT ILLNESS: This is a 77-year-old female with a past medical history significant for atrial fibrillation, asthma, hypertension, syncope, peripheral neuropathy, and depression. Patient follows in the office with Dr. De Leon. We have been asked to see the patient in consultation for chest pain. Patient states she began having difficulty in breathing and wheezing at home with a little bit of a cough. She was recently hospitalized earlier this month and states she developed shortness of breath this and she got home. After nebulizer treatment here, patient states that she is 100% better. She denies any fever or chills, no palpitations, no lightheadedness or dizziness, no nausea, vomiting or diarrhea. Patient was scheduled for outpatient cardioversion on February 01 EKG reveals atrial fibrillation with controlled ventricular rate. No signs of acute ischemia. Chest xray mild CHF suggested, infiltrate of other etiology is difficult to exclude left lung base WBC 23.7, hemoglobin 10, platelet count 366. Electrolytes normal. BUN 21 creatinine 0.71. Troponin negative 1. ProBNP 802. Liver function tests are normal Current home cardiac medications include Eliquis 5mg BID, chlorthalidone 25 mg daily as needed, Cardizem 240 mg daily, Flecainide 50mg BID, levothyroxine 88 g daily, lisinopril 10 mg twice daily, metoprolol tartrate 25 mg twice daily, Pravachol 40 mg at night Echocardiogram performed here on 01/16/2023 revealed field limited views, normal LV systolic function. REVIEW OF SYSTEMS: At the time of my exam: CONSTITUTIONAL: Denies fever or chills. HEENT: Denies blurred vision, vision changes, or eye pain. Denies hemoptysis CARDIOVASCULAR: Denies chest pain. Denies orthopnea. Denies PND. Denies palpitations RESPIRATORY: Denies shortness of breath. GASTROINTESTINAL: Denies abdominal pain. Denies nausea or vomiting. HEMATOLOGIC: Denies bleeding disorders. GENITOURINARY: Denies any blood in urine. SKIN: Denies pruitis. Denies rash. PHYSICAL EXAM: VITAL SIGNS: Reviewed. GENERAL: Well-developed in no acute distress. HEENT: Head is normocephalic. Pupils are equal, round. Sclerae anicteric. Mucous membranes of the mouth are moist. Neck supple. No JVD or thyromegaly LUNGS: Respirations even and unlabored. Lungs essentially clear to auscultation bilaterally. HEART: Irregular rate and rhythm. S1 and S2 heard. ABDOMEN: Soft. Nondistended. Nontender. EXTREMITIES: Normal range of motion. No clubbing or cyanosis. Peripheral pulses intact. No lower extremity edema NEUROLOGIC: Awake and alert. Oriented x 3. ASSESSMENT: Persistent atrial fibrillation with rate controlled Possible pneumonia Leukocytosis Hypertension Hyperlipidemia Asthma Peripheral neuropathy PLAN: An acute coronary event has been ruled out Resume home cardiac medicationsNo need to repeat echocardiogram Patient will keep scheduled PABLITO/cardioversion for tomorrow Patient to be nothing by mouth after midnight Further recommendations pending patient's course Nurse practitioner note has been reviewed by physician. Signing provider agrees with the documented findings, assessment, and plan of care. Past Medical History Past Medical History: Atrial Fibrillation, Asthma, GERD/Reflux, Hyperlipidemia, Hypertension, Osteoarthritis (OA), Thyroid Disorder Additional Past Medical History / Comment(s): SOB inceased since afib dx in October 2022,recent January 2023 admission for pneumonia-last dose prednisone taper 01-30-23, Insomnia, past migraines,PAST HYPERTENSION , sinus problems at times,HIP DISLOCATION X20, legally blind Lt eye,Covid infection spring 2021 History of Any Multi-Drug Resistant Organisms: None Reported Past Surgical History: Bariatric Surgery, Joint Replacement, Orthopedic Surgery, Tubal Ligation Additional Past Surgical History / Comment(s): 2004 lap band, panniculectomy, R hip ORIF/total arthroplasty, L hip arthroplasty x 2, r knee ACL repair and total right arthroplasty, R thumb sx, D&Cs, EGDs/colonoscopies, R breast benign bx. EGD Past Anesthesia/Blood Transfusion Reactions: No Reported Reaction Past Psychological History: ADD/ADHD, Anxiety, Bipolar, Depression Additional Psychological History / Comment(s): PANIC ATTACK ,ADD, currently undergoing ECT treatments at [facility] for severe depression Smoking Status: Former smoker Past Alcohol Use History: Occasional Additional Past Alcohol Use History / Comment(s): QUIT SMOKING 1987 STARTED SMOKING AT AGE 17. SMOKED 1PPD. Past Drug Use History: None Reported - Past Family History Mother History Unknown: Yes Family Medical History: Cancer Additional Family Medical History / Comment(s): BLADDER CA- AT 70 YEARS OLD. Father History Unknown: Yes Family Medical History: Coronary Artery Disease (CAD), Myocardial Infarction (AR) Additional Family Medical History / Comment(s): AT 60 YRS OLD Medications and Allergies Home Medications Medication Instructions Recorded Confirmed Type Albuterol Sulfate [Albuterol 2 puff INHALATION RT-QID PRN 03/12/20 01/30/23 History Sulfate Hfa] Levothyroxine Sodium [Synthroid] 88 mcg PO DAILY@1200 03/12/20 01/30/23 History Montelukast Sodium [Singulair] 10 mg PO HS 03/12/20 01/30/23 History Multivit-Min/Iron/Folic/Lutein 1 tab PO DAILY@1200 03/12/20 01/30/23 History [Centrum Silver Women Tablet] Omeprazole 20 mg PO DAILY 03/12/20 01/30/23 History Alendronate Sodium [Fosamax] 70 mg PO AHMADI 01/23/22 01/30/23 History Budesonide/Formoterol Fumarate 2 puff INHALATION RT-BID 07/15/22 01/30/23 History [Symbicort 80-4.5 Mcg Inhaler] Cholecalciferol [Vitamin D3 (25 50 mcg PO Q2D@1200 07/15/22 01/30/23 History Mcg = 1000 Iu)] Folic Acid 0.8 mg PO DAILY@1200 07/15/22 01/30/23 History Apixaban [Eliquis] 5 mg PO BID 01/14/23 01/30/23 History Diltiazem Cd [Cardizem CD] 240 mg PO DAILY 01/14/23 01/30/23 History Divalproex Sodium [Depakote] 500 mg PO HS 01/14/23 01/30/23 History Flecainide [Tambocor] 50 mg PO BID 01/14/23 01/30/23 History L.acidoph,Paracasei, B.lactis 1 cap PO DAILY@1200 01/14/23 01/30/23 History [Probiotic] Loratadine 10 mg PO DAILY 01/14/23 01/30/23 History Pravastatin Sodium [Pravachol] 40 mg PO HS 01/14/23 01/30/23 History QUEtiapine [SEROquel] 50 mg PO BID 01/14/23 01/30/23 History QUEtiapine [SEROquel] 100 mg PO HS 01/14/23 01/30/23 History buPROPion [Wellbutrin] 75 mg PO DAILY 01/14/23 01/30/23 History lisinopriL [Zestril] 10 mg PO BID 01/14/23 01/30/23 History traZODone HCL [Desyrel] 50 mg PO HS PRN 01/14/23 01/30/23 History Metoprolol Tartrate 25 mg PO BID #60 tab 01/17/23 01/30/23 Rx Chlorthalidone 25 mg PO DAILY PRN 01/30/23 01/30/23 History Allergies Allergy/AdvReac Type Severity Reaction Status Date / Time buspirone [From BuSpar] AdvReac Insomnia Verified 01/30/23 13:38 fluticasone furoate AdvReac HTN Verified 01/30/23 13:38 [From Trelegy Ellipta] lurasidone [From Latuda] AdvReac Parkinson Verified 01/30/23 13:38 Symptoms Opioids - Morphine Analogues AdvReac AGITATION Verified 01/30/23 13:38 Opioids-Meperidine and AdvReac AGITATION Verified 01/30/23 13:38 Related spironolactone AdvReac ANXIETY Verified 01/30/23 13:38 [From Aldactone] AND DEPRESSION umeclidinium AdvReac HTN Verified 01/30/23 13:38 [From Trelegy Ellipta] vilanterol AdvReac HTN Verified 01/30/23 13:38 [From Trelegy Ellipta] OPIATES AdvReac Unknown AGITATION Uncoded 01/30/23 13:38 Physical Exam Vitals: Vital Signs Temp Pulse Pulse Resp BP BP Pulse Ox 01/31/23 07:56 72 94 L 01/31/23 03:12 96 01/31/23 02:16 98.4 F 86 16 128/65 98 01/30/23 21:09 94 01/30/23 21:01 94 01/30/23 20:27 98.2 F 95 15 121/77 97 01/30/23 19:30 96 20 117/79 97 01/30/23 17:41 92 18 96 01/30/23 16:47 99 20 110/83 93 L 01/30/23 16:19 96 01/30/23 16:13 95 01/30/23 16:09 92 01/30/23 14:51 98 20 114/89 94 L 01/30/23 13:43 97.9 F 98 20 111/71 92 L 01/30/23 11:47 92 01/30/23 11:37 87 01/30/23 10:28 97.6 F 105 H 22 105/68 91 L Intake and Output 01/30/23 01/31/23 01/31/23 22:59 06:59 14:59 Other: # Voids 1 1 Results 01/30/23 11:07 01/30/23 11:07 Cardiac Enzymes 01/30/23 01/30/23 Range/Units 11:07 11:07 AST 20 (14-36) U/L Troponin I <0.012 (0.000-0.034) ng/mL Coagulation 01/30/23 Range/Units 11:07 PT 11.1 (9.0-12.0) sec APTT 26.0 (22.0-30.0) sec CBC 01/30/23 Range/Units 11:07 WBC 21.0 H (3.8-10.6) k/uL RBC 3.31 L (3.80-5.40) m/uL Hgb 10.2 L (11.4-16.0) gm/dL Hct 30.4 L (34.0-46.0) % Plt Count 393 (150-450) k/uL Comprehensive Metabolic Panel 01/30/23 Range/Units 11:07 Sodium 137 (137-145) mmol/L Potassium 4.4 (3.5-5.1) mmol/L Chloride 103 (98-107) mmol/L Carbon Dioxide 24 (22-30) mmol/L BUN 21 H (7-17) mg/dL Creatinine 0.71 (0.52-1.04) mg/dL Glucose 153 H (74-99) mg/dL Calcium 8.0 L (8.4-10.2) mg/dL AST 20 (14-36) U/L ALT 15 (4-34) U/L Alkaline Phosphatase 66 (38-126) U/L Total Protein 6.2 L (6.3-8.2) g/dL Albumin 3.2 L (3.5-5.0) g/dL Current Medications Generic Name Dose Route Start Last Admin Trade Name Freq PRN Reason Stop Dose Admin Acetaminophen 650 mg 01/30/23 13:11 01/30/23 22:12 Acetaminophen Tab 325 Mg Tab PO 650 mg Q4HR PRN Administration Mild Pain or Fever > 100.5 Albuterol Sulfate 2.5 mg 01/30/23 15:27 Albuterol Nebulized 2.5 Mg/3 Ml INHALATION RT-QID PRN Shortness Of Breath Albuterol/Ipratropium 3 ml 01/30/23 16:00 01/31/23 07:55 Ipratropium-Albuterol 3 Ml Neb INHALATION 3 ml RT-QID [facility] Administration Albuterol/Ipratropium 3 ml 01/30/23 13:11 01/31/23 03:10 Ipratropium-Albuterol 3 Ml Neb INHALATION 3 ml RT-Q2H PRN Administration Shortness Of Breath Or Wheezing Apixaban 5 mg 01/30/23 21:00 01/30/23 22:11 Apixaban 5 Mg Tab PO 5 mg BID [facility] Administration Protocol Benzonatate 200 mg 01/31/23 03:24 Benzonatate 100 Mg Cap PO TID PRN Cough Budesonide/Formoterol Fumarate 2 puff 01/31/23 08:00 01/31/23 07:55 Symbicort 160-4.5 Mcg Inhaler INHALATION 2 puff RT-BID [facility] Administration Bupropion HCl 75 mg 01/31/23 09:00 Bupropion 75 Mg Tab PO DAILY [facility] Cholecalciferol 50 mcg 02/01/23 12:00 Cholecalciferol 25 Mcg (1000 Iu) Tablet PO Q2D@1200 [facility] Diltiazem HCl 240 mg 01/31/23 09:00 Diltiazem Cd 240 Mg Cap.Er.24h PO DAILY [facility] Divalproex Sodium 500 mg 01/30/23 21:00 01/30/23 22:13 Divalproex 500 Mg Tablet.Dr PO 500 mg HS [facility] Administration Flecainide Acetate 50 mg 01/30/23 21:00 01/30/23 22:13 Flecainide 50 Mg Tab PO 50 mg BID [facility] Administration Folic Acid 1 mg 01/31/23 12:00 Folic Acid 1 Mg Tab PO DAILY@1200 [facility] Azithromycin 500 mg/ Sodium 250 mls @ 250 mls/hr 01/31/23 14:00 Chloride IVPB 02/01/23 14:59 Q24H [facility] Protocol Lactobacillus Acidophilus 1 each 01/31/23 12:00 Lactobacillus Acidophilus/Pect 1 Each Capsule PO DAILY@1200 [facility] Levothyroxine Sodium 88 mcg 01/31/23 12:00 Levothyroxine 88 Mcg Tab PO DAILY@1200 [facility] Loratadine 10 mg 01/31/23 09:00 Loratadine 10 Mg Tab PO DAILY [facility] Methylprednisolone Sodium Succinate 60 mg 01/30/23 18:00 01/31/23 06:28 Methylprednisolone Sod Succi 125 Mg/2 Ml Vial IV 60 mg Q6HR [facility] Administration Metoprolol Tartrate 25 mg 01/30/23 21:00 01/30/23 22:12 Metoprolol Tartrate 25 Mg Tab PO 25 mg BID [facility] Administration Montelukast Sodium 10 mg 01/30/23 21:00 01/30/23 22:12 Montelukast 10 Mg Tab PO 10 mg HS [facility] Administration Naloxone HCl 0.2 mg 01/30/23 13:11 Naloxone 0.4 Mg/Ml 1 Ml Vial IVP Q2M PRN Opioid Reversal Pantoprazole Sodium 40 mg 01/31/23 07:30 01/31/23 06:28 Pantoprazole 40 Mg Tablet PO 40 mg [id number] [facility] Administration Pravastatin Sodium 40 mg 01/30/23 21:00 01/30/23 22:11 Pravastatin Sodium 40 Mg Tab PO 40 mg HS [facility] Administration Quetiapine Fumarate 50 mg 01/30/23 21:00 01/30/23 22:11 Quetiapine 50 Mg Tab PO 50 mg BID [facility] Administration Quetiapine Fumarate 100 mg 01/30/23 21:00 01/30/23 22:12 Quetiapine 100 Mg Tab PO 100 mg HS [facility] Administration Trazodone HCl 50 mg 01/30/23 15:27 01/30/23 22:23 Trazodone Hcl 50 Mg Tab PO 50 mg HS PRN Administration Insomnia Intake and Output 01/30/23 01/31/23 01/31/23 22:59 06:59 14:59 Other: # Voids 1 1 01/30/23 11:07 01/30/23 11:07
[2023-01-31 10:46] LABS: African American GFR (CKD) >90 (>60 ml/min/1.73 sqM); Anion Gap 13 mmol/L; Blood Urea Nitrogen 21 mg/dL (7-17); Carbon Dioxide 21 mmol/L (22-30); Chloride 102 mmol/L (98-107); Glucose 157 mg/dL (74-99); Non-African American GFR(CKD) 88 (>60 ml/min/1.73 sqM); Potassium 4.3 mmol/L (3.5-5.1); Sodium 136 mmol/L (137-145)
[2023-01-31] MEDS: LEVOTHYROXINE 88 MCG TAB PO SCH (13:28)
[2023-01-31] MEDS: LACTOBACILLUS ACIDOPHILUS/PECT 1 EACH CAPSULE PO SCH (13:28)
[2023-01-31] MEDS: FOLIC ACID 1 MG TAB PO SCH (13:28)
[2023-01-31] MEDS ORDERED: AZITHROMYCIN 500 MG in SODIUM CHLORIDE 0.9% 250 ML IVPB SCH (14:00)
--- NOTE | 2023-01-31 15:52 | P.PN ---
Subjective Progress Note Date: 01/31/23 Patient is a pleasant 77-year-old female came in with compensative from as of breath is on 2 L of she usually doesn't wear any oxygen at home patient does have a cough without any significant sputum production was recently treated for pneumonia and asthma exacerbation. Patient is admitted for asthma exacerbation patient is saturating at 91% severely better compared to yesterday patient is negative for influenza, RSV and COVID-19. Chest x-ray is suspicious for pulmonary edema although patient's BNP is only 800, patient does have leukocytosis probably secondary to systemic steroids she was on which she completed yesterday. Patient denied any fever chills. Pro-calcitonin will be ordered. 01/31/2023 Patient is evaluated today resting in bed continues to have some faint scattered wheezing and shortness of breath. Continues on 2L nasal cannula does not wear oxygen outpatient. Remains in atrial fibrillation heart rate in the high 90s. Cardiology following and planning for patient to undergo PABLITO cardioversion tomorrow. Received a dose of IV lasix yesterday. Patient remains on IV solumedrol. Procalcitonin level is negative and antibiotics have been discontinued. Review of Systems Constitutional: Denied any fatigue denied any fever. Cardio vascular: denied any chest pain, palpitations Gastrointestinal: denied any nausea, vomiting, diarrhea Pulmonary: Reports shortness of breath, cough Neurologic denied any new focal deficits All inpatient medications were reviewed and appropriate changes in these medications as dictated in the interval history and assessment and plan. PHYSICAL EXAMINATION: GENERAL: The patient is alert and oriented x3, not in any acute distress. Well developed, well nourished. HEENT: Pupils are round and equally reacting to light. EOMI. No scleral icterus. No conjunctival pallor. Normocephalic, atraumatic. No pharyngeal erythema. No thyromegaly. CARDIOVASCULAR: S1 and S2 present. No murmurs, rubs, or gallops. PULMONARY: Mild expiratory wheezing without any crackles ABDOMEN: Soft, nontender, nondistended, normoactive bowel sounds. No palpable organomegaly. MUSCULOSKELETAL: No joint swelling or deformity. EXTREMITIES: No cyanosis, clubbing, or pedal edema. NEUROLOGICAL: Gross neurological examination did not reveal any focal deficits. SKIN: No rashes. Assessment and plan -Asthma excerbation with history of persistent bronchial asthma: Patient was started on systemic steroids inhalational treatments, antibiotics discontinued procalcitonin is normal -Leukocytosis likely steroid induced will follow up CBC tomorrow -Chronic atrial fibrillation on eliquis, scheduled to undergo PABLITO/Cardioversion tomorrow which was scheduled as an outpatient. -Gastroesophageal reflux disease -Hyperlipidemia -Hypertension -hypothyroidism GI prophylaxis DVT prophylaxis: Lovenox The impression and plan of care has been dictated by Caroline Oliver, Nurse Practitioner as directed. Dr. Nicole MD I have performed a history and physical examination and medical decision making of this patient, discussed the same with the dictator, and agree with the dictators assessment and plan as written, documented as a scribe. Based on total visit time, I have performed more than 50% of this visit. Objective - Vital Signs Vital signs: Vital Signs Temp 97.3 F L 01/31/23 07:00 Pulse 76 01/31/23 08:12 Resp 16 01/31/23 07:00 BP 130/78 01/31/23 07:00 Pulse Ox 95 01/31/23 07:56 FiO2 Intake & Output 01/30/23 01/31/23 01/31/23 18:59 06:59 18:59 Weight 65.771 kg Other: # Voids 1 - Labs CBC & Chem 7: 01/31/23 09:48 01/31/23 09:48 Labs: Abnormal Lab Results - Last 24 Hours (Table) 01/30/23 01/30/23 Range/Units 11:07 11:07 WBC 21.0 H (3.8-10.6) k/uL RBC 3.31 L (3.80-5.40) m/uL Hgb 10.2 L (11.4-16.0) gm/dL Hct 30.4 L (34.0-46.0) % Neutrophils # 19.0 H (1.3-7.7) k/uL Lymphocytes # 0.8 L (1.0-4.8) k/uL BUN 21 H (7-17) mg/dL Glucose 153 H (74-99) mg/dL Calcium 8.0 L (8.4-10.2) mg/dL Total Protein 6.2 L (6.3-8.2) g/dL Albumin 3.2 L (3.5-5.0) g/dL Assessment and Plan Time with Patient: Less than 30
[2023-01-31] MEDS: traZODone HCL 50 MG TAB PO PRN (21:13)
[2023-01-31] MEDS: MONTELUKAST 10 MG TAB PO SCH (21:14)
[2023-01-31] MEDS: PRAVASTATIN SODIUM 40 MG TAB PO SCH (21:14)
[2023-01-31] MEDS: DIVALPROEX 500 MG TABLET.DR PO SCH (21:14)
[2023-01-31] MEDS: QUEtiapine 100 MG TAB PO SCH (21:14)
[2023-02-01] MEDS: PANTOPRAZOLE 40 MG TABLET PO SCH (06:20)
[2023-02-01] MEDS: ACETAMINOPHEN TAB 325 MG TAB PO PRN ×2 (06:23→18:32)
--- NOTE | 2023-02-01 08:10 | P.PN ---
Subjective Progress Note Date: 02/01/23 PROGRESS NOTE The patient is a 77-year-old female with history of atrial fibrillation, bronchial asthma who presented with worsening dyspnea and wheezing. She's feeling better today. She denies any chest discomfort, dizziness or palpitations. She denies any nausea. She is scheduled to undergo cardioversion by Dr. De Leon today. She continues to be in atrial fibrillation with controlled ventricular response. Medications: Cardizem 240 mg daily, flecainide 50 mg twice a day, Eliquis 5 mg twice a day, levothyroxine, metoprolol 25 mg twice a day, pravastatin 40 mg daily, Seroquel, Singulair, trazodone. PHYSICAL EXAMINATION: Blood pressure 114/70 heart rate 80 LUNGS: Clear to auscultation HEART: Regular rate and rhythm, S1, S2. No S3. Systolic ejection murmur ABDOMEN: Soft, nontender, no organomegaly EXTREMETIES: Trace edema IMPRESSION: 1. Exacerbation of bronchial asthma 2. Atrial fibrillation, anticoagulated, rate controlled 3. Hypertension 4. Hyperlipidemia PLAN: 1. Continue present therapy 2. Proceed with cardioversion today 3. Depending on her progress further recommendations will be made Objective - Vital Signs Vital signs: Vital Signs Temp 97.7 F 02/01/23 07:00 Pulse 80 02/01/23 07:00 Resp 18 02/01/23 07:00 BP 114/75 02/01/23 07:00 Pulse Ox 93 L 02/01/23 07:00 FiO2 Intake & Output 01/31/23 02/01/23 02/01/23 18:59 06:59 18:59 Intake Total 118 Balance 118 Intake: Oral 118 Other: # Voids 2 1 - Labs CBC & Chem 7: 01/31/23 09:48 01/31/23 09:48 Labs: Abnormal Lab Results - Last 24 Hours (Table) 01/31/23 01/31/23 Range/Units 09:48 09:48 WBC 23.7 H (3.8-10.6) k/uL RBC 3.31 L (3.80-5.40) m/uL Hgb 10.0 L (11.4-16.0) gm/dL Hct 31.9 L (34.0-46.0) % Neutrophils # 22.2 H (1.3-7.7) k/uL Lymphocytes # 0.6 L (1.0-4.8) k/uL Sodium 136 L (137-145) mmol/L Carbon Dioxide 21 L (22-30) mmol/L BUN 21 H (7-17) mg/dL Glucose 157 H (74-99) mg/dL Calcium 8.0 L (8.4-10.2) mg/dL
[2023-02-01] MEDS: IPRATROPIUM-ALBUTEROL 3 ML NEB INHALATION SCH ×4 (08:22→20:00)
[2023-02-01] MEDS: SYMBICORT 160-4.5 MCG INHALER INHALATION SCH ×2 (08:22→20:00)
[2023-02-01 08:36] LABS: Basophils # (A) 0.02 X 10*3/uL (0.00-0.10); Basophils % (A) 0.1 %; Eosinophils # (A) 0 X 10*3/uL (0.04-0.35); Eosinophils % (A) 0 %; HCT 26.6 % (37.2-46.3); HGB 8.5 d/dL (12.0-15.0); Lymphocytes # (A) 0.46 X 10*3/uL (0.90-5.00); Lymphocytes % (A) 2.5 %; MCH 29.4 pg (27.0-32.0); Mean Platelet Volume 10.5 FL (9.5-12.2); Monocytes # (A) 0.61 X 10*3/uL (0.20-1.00); Monocytes % (A) 3.3 %; NRBC Per 100 WBC 0 X 10*3/uL (0.00-0.01); Neutrophils # (A) 17.06 X 10*3/uL (1.80-7.70); Neutrophils % (A) 93.5 %; Platelet Count 375 X 10*3/uL (140-440); RBC 2.89 X 10*6/uL (4.10-5.20); RDW 13.9 % (11.5-14.5); WBC 18.26 X 10*3/uL (4.50-10.00)
[2023-02-01] MEDS: LORATADINE 10 MG TAB PO SCH (10:04)
[2023-02-01] MEDS: QUEtiapine 50 MG TAB PO SCH ×2 (10:04→20:20)
[2023-02-01] MEDS: METOPROLOL TARTRATE 25 MG TAB PO SCH ×2 (10:04→20:20)
[2023-02-01] MEDS: DILTIAZEM CD 240 MG CAP.ER.24H PO SCH (10:04)
[2023-02-01] MEDS: APIXABAN 5 MG TAB PO SCH ×2 (10:04→20:20)
[2023-02-01] MEDS: FLECAINIDE 50 MG TAB PO SCH ×2 (10:05→20:19)
[2023-02-01] MEDS: buPROPion 75 MG TAB PO SCH (10:05)
--- NOTE | 2023-02-01 11:09 | P.PN ---
Subjective Progress Note Date: 02/01/23 I'm seeing this patient in consultation today 01/31/2023 for acute asthma exacerbation. Patient is a 77-year-old white female with past medical history significant for asthma, paroxysmal atrial fibrillation, hypertension, previous intentional overdose, and bipolar disorder. Her primary care provider is Dr. Audra Bowen. Patient does follow my office with Dr. Judd for moderate persistent asthma. Patient is normally maintained on a combination of Symbicort inhaler and Ventolin rescue inhaler. Patient was recently treated for a left lower lobe pneumonia and discharged on January 17 on a combination of Ceftin and prednisone taper. The patient has been tapering her steroids as ordered, and st arted to experience worsening shortness of breath and wheezing. She did come to the emergency room yesterday morning complaining of these symptoms. She denies any fever, chills, chest pain, hemoptysis. She states that she completed her course of antibiotics. She denies any sick contacts. She states that her shortness of breath is accompanied by wheezing and chest tightness. She does have a dry persistent cough. Denies any chest pain, heart palpitations, syncope, orthopnea, or lower extremity swelling. She is currently sitting up in bed, on 3 L/m nasal cannula, in no acute distress. She does have some significant expiratory wheezing on auscultation. Chest x-ray on arrival showed a persistent left lower lung base infiltrate that was unchanged from her recent x-rays. There was also very mild pulmonary vascular congestion and cardiomegaly. NT proBNP was not significantly elevated for age at 802. CBC on arrival did show some leukocytosis which is likely related to her steroid use. Her WBC count is 21, hemoglobin 10, hematocrit 30.4, platelets 393. BMP was unremarkable. She was negative for influenza, RSV, COVID-19. Patient was started on empiric azithromycin. She is afebrile. She is on a combination of DuoNeb's, Symbicort inhaler, and IV Solu-Medrol. Patient appears nontoxic and is hemodynamically stable. She will be monitored on the observation unit. The patient is seen today 02/01/2023 in follow-up on the regular medical floor. She is currently resting comfortably in bed. Awake and alert in no acute distress. No worsening shortness of breath, cough or congestion. He is maintaining O2 saturations in the 90s on 2 L/m per nasal cannula. Afebrile. Hemodynamically stable. The plan is for cardioversion today. White count 18.2. Hemoglobin 8.5. Platelets 375. Procalcitonin was 0.08. She is currently on azithromycin, Solu-Medrol, Symbicort and DuoNeb inhalations. Anticoagulated with Eliquis. Objective - Vital Signs Vital signs: Vital Signs Temp 97.7 F 02/01/23 07:00 Pulse 74 02/01/23 08:36 Resp 18 02/01/23 08:00 BP 114/75 02/01/23 07:00 Pulse Ox 93 L 02/01/23 08:23 FiO2 Intake & Output 01/31/23 02/01/23 02/01/23 18:59 06:59 18:59 Intake Total 118 Balance 118 Intake: Oral 118 Other: # Voids 2 1 - Exam GENERAL EXAM: Alert, 77-year-old female appearing stated age, on 2 L nasal cannula, comfortable in no apparent distress. HEAD: Normocephalic and atraumatic EYES: Normal reaction of pupils, equal size. NOSE: Clear with pink turbinates. THROAT: No erythema or exudates. NECK: No masses, no JVD. CHEST: No chest wall deformity. LUNGS: Equal air entry with expiratory wheezes heard throughout. No rhonchi, crackles, or focal dullness. No conversational dyspnea or accessory muscle use. CVS: S1 and S2 normal with no audible murmur, irregular rhythm. No extra heart sounds. Heart rate 94 bpm. ABDOMEN: No hepatosplenomegaly, active bowel sounds, no guarding or rigidity. SPINE: No scoliosis or deformity SKIN: No rashes CENTRAL NERVOUS SYSTEM: No focal deficits, tone is normal in all 4 extremities. EXTREMITIES: There is 1+ bilateral lower extremity pitting edema. No clubbing, or cyanosis. Peripheral pulses are intact. - Labs CBC & Chem 7: 02/01/23 04:23 01/31/23 09:48 Labs: Abnormal Lab Results - Last 24 Hours (Table) 02/01/23 Range/Units 04:23 WBC 18.26 H (4.50-10.00) X 10*3/uL RBC 2.89 L (4.10-5.20) X 10*6/uL Hgb 8.5 L (12.0-15.0) d/dL Hct 26.6 L (37.2-46.3) % Neutrophils # 17.06 H (1.80-7.70) X 10*3/uL Lymphocytes # 0.46 L (0.90-5.00) X 10*3/uL Eosinophils # 0 L (0.04-0.35) X 10*3/uL Assessment and Plan Assessment: Acute exacerbation of moderate persistent bronchial asthma. Chest x-ray on [facility] did show a persistent left lower lobe infiltrate versus atelectasis. Pro- calcitonin 0.08. Antibiotics discontinued. There was also some mild pulmonary vascular congestion. NT proBNP was only mildly elevated at 800, which is relatively low for age. Negative for influenza, RSV, COVID-19. Possible mild exacerbation of diastolic congestive heart failure. Most recent echocardiogram done earlier this month shows a preserved ejection fraction of 55-60%, and no significant valvular abnormalities reported. Acute hypoxemic respiratory failure secondary to above, on 3 L/m nasal cannula. Leukocytosis, likely related to steroids Chronic paroxysmal atrial fibrillation, currently with controlled ventricular rate, anticoagulated on Eliquis Benign essential hypertension Hyperlipidemia Bipolar disorder History of intentional overdose Plan: The patient was seen and evaluated Medications and labs reviewed Discontinue antibiotics Again discontinue steroids Titrate down the FiO2 as tolerated Plan as her cardioversion today Anticoagulated with Eliquis We'll continue to follow I have personally seen and examined the patient, performed the documentation and the assessment and plan as written. Number of minutes spent on the visit: 10.
[2023-02-01] MEDS ORDERED: LIDOCAINE 2% INJ 20 MG/ML (2 ML VIAL) ONE (11:58)
[2023-02-01] MEDS ORDERED: PROPOFOL 10 MG/ML 20 ML VIAL IV ONE (11:58)
[2023-02-01] MEDS ORDERED: CHOLECALCIFEROL 25 MCG (1000 IU) TABLET PO SCH (12:00)
[2023-02-01] MEDS ORDERED: BENZOCAINE SPRAY 1 CAN TOPICAL ONE (12:01)
[2023-02-01] MEDS ORDERED: LACTATED RINGERS 1,000 ML IV ONE (12:03)
[2023-02-01] MEDS: LEVOTHYROXINE 88 MCG TAB PO SCH (13:27)
[2023-02-01] MEDS: LACTOBACILLUS ACIDOPHILUS/PECT 1 EACH CAPSULE PO SCH (13:27)
[2023-02-01] MEDS: FOLIC ACID 1 MG TAB PO SCH (13:27)
--- NOTE | 2023-02-01 16:12 | P.PN ---
Subjective Progress Note Date: 02/01/23 Patient is a pleasant 77-year-old female came in with compensative from as of breath is on 2 L of she usually doesn't wear any oxygen at home patient does have a cough without any significant sputum production was recently treated for pneumonia and asthma exacerbation. Patient is admitted for asthma exacerbation patient is saturating at 91% severely better compared to yesterday patient is negative for influenza, RSV and COVID-19. Chest x-ray is suspicious for pulmonary edema although patient's BNP is only 800, patient does have leukocytosis probably secondary to systemic steroids she was on which she completed yesterday. Patient denied any fever chills. Pro-calcitonin will be ordered. 01/31/2023 Patient is evaluated today resting in bed continues to have some faint scattered wheezing and shortness of breath. Continues on 2L nasal cannula does not wear oxygen outpatient. Remains in atrial fibrillation heart rate in the high 90s. Cardiology following and planning for patient to undergo PABLITO cardioversion tomorrow. Received a dose of IV lasix yesterday. Patient remains on IV solumedrol. Procalcitonin level is negative and antibiotics have been discontinued. 02/01/2023 Patient is evaluated today resting in bed continues on nasal cannula and continues to have shortness of breath with exertion. Patient is scheduled to undergo PABLITO and cardioversion if today at noon. Lungs are clearing. Patient continues on updrafts and has been taken off the solumedrol. Patients white count is down to 18, hemoglobin 8.5. Review of Systems Constitutional: Denied any fatigue denied any fever. Cardio vascular: denied any chest pain, palpitations Gastrointestinal: denied any nausea, vomiting, diarrhea Pulmonary: Reports shortness of breath, cough Neurologic denied any new focal deficits All inpatient medications were reviewed and appropriate changes in these medications as dictated in the interval history and assessment and plan. PHYSICAL EXAMINATION: GENERAL: The patient is alert and oriented x3, not in any acute distress. Well developed, well nourished. HEENT: Pupils are round and equally reacting to light. EOMI. No scleral icterus. No conjunctival pallor. Normocephalic, atraumatic. No pharyngeal erythema. No thyromegaly. CARDIOVASCULAR: S1 and S2 present. No murmurs, rubs, or gallops. PULMONARY: Mild expiratory wheezing without any crackles ABDOMEN: Soft, nontender, nondistended, normoactive bowel sounds. No palpable organomegaly. MUSCULOSKELETAL: No joint swelling or deformity. EXTREMITIES: No cyanosis, clubbing, or pedal edema. NEUROLOGICAL: Gross neurological examination did not reveal any focal deficits. SKIN: No rashes. Assessment and plan -Asthma excerbation with history of persistent bronchial asthma: Remains on inhalational treatments, antibiotics discontinued procalcitonin is normal and IV steroids have been discontinued -Leukocytosis likely steroid induced, WBC 18 today improving with discontinuation of steroids. -Chronic atrial fibrillation on eliquis, scheduled to undergo PABLITO/Cardioversion today which was scheduled as an outpatient. -Gastroesophageal reflux disease -Hyperlipidemia -Hypertension -hypothyroidism GI prophylaxis DVT prophylaxis: Lovenox Plan Continue with current medications, patient to undergo PABLITO and cardioversion. The impression and plan of care has been dictated by Caroline Oliver, Nurse Practitioner as directed. Dr. Nicole MD I have performed a history and physical examination and medical decision making of this patient, discussed the same with the dictator, and agree with the dictators assessment and plan as written, documented as a scribe. Based on total visit time, I have performed more than 50% of this visit. Objective - Vital Signs Vital signs: Vital Signs Temp 97.7 F 02/01/23 07:00 Pulse 74 02/01/23 16:03 Resp 18 02/01/23 12:50 BP 119/75 02/01/23 14:20 Pulse Ox 91 L 02/01/23 14:20 FiO2 Intake & Output 01/31/23 02/01/23 02/01/23 18:59 06:59 18:59 Intake Total 118 Balance 118 Intake: Oral 118 Other: # Voids 2 1 1 - Labs CBC & Chem 7: 02/01/23 04:23 01/31/23 09:48 Labs: Abnormal Lab Results - Last 24 Hours (Table) 02/01/23 Range/Units 04:23 WBC 18.26 H (4.50-10.00) X 10*3/uL RBC 2.89 L (4.10-5.20) X 10*6/uL Hgb 8.5 L (12.0-15.0) d/dL Hct 26.6 L (37.2-46.3) % Neutrophils # 17.06 H (1.80-7.70) X 10*3/uL Lymphocytes # 0.46 L (0.90-5.00) X 10*3/uL Eosinophils # 0 L (0.04-0.35) X 10*3/uL Assessment and Plan Time with Patient: Less than 30
[2023-02-01] MEDS: PRAVASTATIN SODIUM 40 MG TAB PO SCH (20:20)
[2023-02-01] MEDS: QUEtiapine 100 MG TAB PO SCH (20:20)
[2023-02-01] MEDS: traZODone HCL 50 MG TAB PO PRN (20:20)
[2023-02-01] MEDS: MONTELUKAST 10 MG TAB PO SCH (20:20)
[2023-02-01] MEDS: DIVALPROEX 500 MG TABLET.DR PO SCH (20:20)
[2023-02-02] MEDS: PANTOPRAZOLE 40 MG TABLET PO SCH (05:24)
[2023-02-02 07:25] VITALS: BP 137/75; PULSE 67; RESP 16; TEMP 98
--- NOTE | 2023-02-02 07:45 | P.TEE ---
Description of Procedure(s): Procedure performed: Transesophageal Echocardiogram with color flow doppler, pulsed wave doppler and continuous wave doppler, synchronized cardioversion Moderate conscious sedation: Moderate conscious sedation was supplied by anesthesia, see separate report. Complications: none Indications: Afib PROCEDURE: After the risks, benefits and alternatives of the above mentioned procedure was explained in detail with the patient, informed consent was obtained. Patient was brought to the lab in a fasting state. Patient was given IV Versed and Fentanyl for sedation. The throat was sprayed with Hurricane to anesthetize the throat. A lubricated Omni probe was then introduced into the esophagus and stomach and multiple views were obtained. 2D echo with color flow doppler, pulsed wave doppler and continuous wave doppler was utilized. There was rotation with different anatomy which appeared related to folding of the probe on itself when the probe was removed. There was no thrombus noted and therefore patient underwent synchronized cardioversion x 1 with 200J with resultant sinus rhythm. Patient tolerated the procedure well. Patient was transferred to the post procedure area in stable and satisfactory condition. FINDINGS: 1. The aortic valve is tricuspid and functioning normally with mild aortic regurgitation. 2. The mitral valve is normal with mild mitral regurgitation 3. Tricuspid valve appears to be normal with mild tricuspid regurgitation. 4. Left atrial appendage is clear with no left atrial appendage thrombus 6. Left ventricular ejection fraction 55%
[2023-02-02] MEDS: APIXABAN 5 MG TAB PO SCH (08:28)
[2023-02-02] MEDS: FLECAINIDE 50 MG TAB PO SCH (08:28)
[2023-02-02] MEDS: QUEtiapine 50 MG TAB PO SCH (08:28)
[2023-02-02] MEDS: METOPROLOL TARTRATE 25 MG TAB PO SCH (08:28)
[2023-02-02] MEDS: DILTIAZEM CD 240 MG CAP.ER.24H PO SCH (08:28)
[2023-02-02] MEDS: LORATADINE 10 MG TAB PO SCH (08:29)
[2023-02-02] MEDS: buPROPion 75 MG TAB PO SCH (08:29)
[2023-02-02 08:39] LABS: Basophils # (A) 0.01 X 10*3/uL (0.00-0.10); Basophils % (A) 0.1 %; Eosinophils # (A) 0.01 X 10*3/uL (0.04-0.35); Eosinophils % (A) 0.1 %; HCT 28.4 % (37.2-46.3); HGB 8.9 d/dL (12.0-15.0); Lymphocytes # (A) 1.03 X 10*3/uL (0.90-5.00); Lymphocytes % (A) 7.4 %; MCH 29.5 pg (27.0-32.0); MCHC 31.3 d/dL (32.0-37.0); Mean Platelet Volume 9.7 FL (9.5-12.2); Monocytes # (A) 0.84 X 10*3/uL (0.20-1.00); NRBC Per 100 WBC 0 X 10*3/uL (0.00-0.01); Neutrophils # (A) 11.97 X 10*3/uL (1.80-7.70); Neutrophils % (A) 85.8 %; Platelet Count 392 X 10*3/uL (140-440); RBC 3.02 X 10*6/uL (4.10-5.20); RDW 14.1 % (11.5-14.5); WBC 13.94 X 10*3/uL (4.50-10.00)
[2023-02-02] MEDS: IPRATROPIUM-ALBUTEROL 3 ML NEB INHALATION SCH (09:12)
[2023-02-02] MEDS: SYMBICORT 160-4.5 MCG INHALER INHALATION SCH (09:12)
[2023-02-02 09:52] LABS: BUN/Creat Ratio 35.75 Ratio (12.00-20.00); Blood Urea Nitrogen 28.6 mg/dL (9.0-27.0); Carbon Dioxide 21.2 mmol/L (21.6-31.8); Chloride 106 mmol/L (96-109); Glucose 92 mg/dL (70-110); Sodium 138 mmol/L (135-145)
[2023-02-02] MEDS: ACETAMINOPHEN TAB 325 MG TAB PO PRN (10:26)
--- NOTE | 2023-02-02 10:57 | P.PN ---
Subjective Progress Note Date: 02/02/23 I'm seeing this patient in consultation today 01/31/2023 for acute asthma exacerbation. Patient is a 77-year-old white female with past medical history significant for asthma, paroxysmal atrial fibrillation, hypertension, previous intentional overdose, and bipolar disorder. Her primary care provider is Dr. Audra Bowen. Patient does follow my office with Dr. Judd for moderate persistent asthma. Patient is normally maintained on a combination of Symbicort inhaler and Ventolin rescue inhaler. Patient was recently treated for a left lower lobe pneumonia and discharged on January 17 on a combination of Ceftin and prednisone taper. The patient has been tapering her steroids as ordered, and st arted to experience worsening shortness of breath and wheezing. She did come to the emergency room yesterday morning complaining of these symptoms. She denies any fever, chills, chest pain, hemoptysis. She states that she completed her course of antibiotics. She denies any sick contacts. She states that her shortness of breath is accompanied by wheezing and chest tightness. She does have a dry persistent cough. Denies any chest pain, heart palpitations, syncope, orthopnea, or lower extremity swelling. She is currently sitting up in bed, on 3 L/m nasal cannula, in no acute distress. She does have some significant expiratory wheezing on auscultation. Chest x-ray on arrival showed a persistent left lower lung base infiltrate that was unchanged from her recent x-rays. There was also very mild pulmonary vascular congestion and cardiomegaly. NT proBNP was not significantly elevated for age at 802. CBC on arrival did show some leukocytosis which is likely related to her steroid use. Her WBC count is 21, hemoglobin 10, hematocrit 30.4, platelets 393. BMP was unremarkable. She was negative for influenza, RSV, COVID-19. Patient was started on empiric azithromycin. She is afebrile. She is on a combination of DuoNeb's, Symbicort inhaler, and IV Solu-Medrol. Patient appears nontoxic and is hemodynamically stable. She will be monitored on the observation unit. The patient is seen today 02/01/2023 in follow-up on the regular medical floor. She is currently resting comfortably in bed. Awake and alert in no acute distress. No worsening shortness of breath, cough or congestion. He is maintaining O2 saturations in the 90s on 2 L/m per nasal cannula. Afebrile. Hemodynamically stable. The plan is for cardioversion today. White count 18.2. Hemoglobin 8.5. Platelets 375. Procalcitonin was 0.08. She is currently on azithromycin, Solu-Medrol, Symbicort and DuoNeb inhalations. Anticoagulated with Eliquis. The patient is seen today 02/02/2023 in follow-up on the regular medical floor. She is awake and alert in no acute distress. Resting comfortably in bed. Remaining in sinus rhythm post-cardioversion. She is anticoagulated with Eliquis. Remains on DuoNeb inhalations, Symbicort. No worsening shortness of breath, cough or congestion. Maintaining O2 saturations in the high 90s on 2 L/m per nasal cannula. Afebrile. Hemodynamically stable. White count 13.9. Hemoglobin 8.9. Platelets 392. Sodium 138. Potassium 5.0. Bicarb 21. BUN 28. Creatinine 0.8. Glucose 92. Objective - Vital Signs Vital signs: Vital Signs Temp 98.0 F 02/02/23 07:00 Pulse 67 02/02/23 08:00 Resp 16 02/02/23 08:00 BP 137/75 02/02/23 07:00 Pulse Ox 99 02/02/23 07:00 FiO2 Intake & Output 02/01/23 02/02/23 02/02/23 18:59 06:59 18:59 Intake Total 118 Balance 118 Intake: Oral 118 Other: Voiding Method Bedside Commode Bedside Commode # Voids 1 2 - Exam GENERAL EXAM: Alert, very pleasant 77-year-old female, on 2 L nasal cannula, comfortable in no apparent distress. HEAD: Normocephalic and atraumatic EYES: Normal reaction of pupils, equal size. NOSE: Clear with pink turbinates. THROAT: No erythema or exudates. NECK: No masses, no JVD. CHEST: No chest wall deformity. LUNGS: Equal air entry with expiratory wheezes heard throughout. No rhonchi, crackles, or focal dullness. CVS: S1 and S2 normal with no audible murmur, regular rhythm. No extra heart sounds. Heart rate 94 bpm. ABDOMEN: No hepatosplenomegaly, active bowel sounds, no guarding or rigidity. SPINE: No scoliosis or deformity SKIN: No rashes CENTRAL NERVOUS SYSTEM: No focal deficits, tone is normal in all 4 extremities. EXTREMITIES: There is 1+ bilateral lower extremity pitting edema. No clubbing, or cyanosis. Peripheral pulses are intact. - Labs CBC & Chem 7: 02/02/23 05:50 02/02/23 05:50 Labs: Abnormal Lab Results - Last 24 Hours (Table) 02/02/23 02/02/23 Range/Units 05:50 05:50 WBC 13.94 H (4.50-10.00) X 10*3/uL RBC 3.02 L (4.10-5.20) X 10*6/uL Hgb 8.9 L (12.0-15.0) d/dL Hct 28.4 L (37.2-46.3) % MCHC 31.3 L (32.0-37.0) d/dL Neutrophils # 11.97 H (1.80-7.70) X 10*3/uL Eosinophils # 0.01 L (0.04-0.35) X 10*3/uL Carbon Dioxide 21.2 L (21.6-31.8) mmol/L BUN 28.6 H (9.0-27.0) mg/dL BUN/Creatinine Ratio 35.75 H (12.00-20.00) Ratio Calcium 8.0 L (8.7-10.3) mg/dL Microbiology - Last 24 Hours (Table) 01/30/23 13:50 Blood Culture - Preliminary Blood 01/30/23 13:35 Blood Culture - Preliminary Blood Assessment and Plan Assessment: Acute exacerbation of moderate persistent bronchial asthma. Chest x-ray on arrival did show a persistent left lower lobe infiltrate versus atelectasis. Pro-calcitonin 0.08. Antibiotics discontinued. There was also some mild pulmonary vascular congestion. NT proBNP was only mildly elevated at 800. Negative for influenza, RSV, COVID-19. Possible mild exacerbation of diastolic congestive heart failure. Most recent echocardiogram done earlier this month shows a preserved ejection fraction of 55-60%, and no significant valvular abnormalities reported. Acute hypoxemic respiratory failure secondary to above, on 2 L/m nasal cannula. Leukocytosis, likely related to steroids Chronic paroxysmal atrial fibrillation, currently with controlled ventricular rate, anticoagulated on Eliquis. PABLITO revealed no thrombus. She had undergone cardioversion, currently in sinus rhythm. Benign essential hypertension Hyperlipidemia Bipolar disorder History of intentional overdose Plan: The patient was seen and evaluated Medications and labs reviewed Titrate down the FiO2 as tolerated Currently in sinus rhythm Anticoagulated with Eliquis Cleared for discharge from the pulmonary standpoint Follow-up in our office as scheduled I have personally seen and examined the patient, performed the documentation and the assessment and plan as written. Number of minutes spent on the visit: 10.
--- NOTE | 2023-02-02 11:40 | P.PN ---
Subjective Progress Note Date: 02/02/23 PROGRESS NOTE The patient is a 77-year-old female with history of atrial fibrillation, bronchial asthma who presented with worsening dyspnea and wheezing. She's feeling better today. She denies any chest discomfort, dizziness or palpitations. She denies any nausea. She is scheduled to undergo cardioversion by Dr. De Leon today. She continues to be in atrial fibrillation with controlled ventricular response. Medications: Cardizem 240 mg daily, flecainide 50 mg twice a day, Eliquis 5 mg twice a day, levothyroxine, metoprolol 25 mg twice a day, pravastatin 40 mg daily, Seroquel, Singulair, trazodone. 02/02 Yesterday, patient underwent PABLITO with Dr. De Leon revealed aortic valve is tricuspid functioning normal with mild aortic regurgitation, mild mitral regurgitation, mild tricuspid regurgitation, left atrial appendage clear with no thrombus, EF 55%. Patient also underwent cardioversion and remains in a sinus rhythm this morning. Heart rate is in the 60s and 70s, blood pressure 137/75. WBC is 13.9, hemoglobin 8.9, platelet count 392. Creatinine 0.8. PHYSICAL EXAMINATION: LUNGS: Clear to auscultation HEART: Regular rate and rhythm, S1, S2. No S3. Systolic ejection murmur ABDOMEN: Soft, nontender, no organomegaly EXTREMETIES: Trace edema IMPRESSION: 1. Exacerbation of bronchial asthma 2. Atrial fibrillation, anticoagulated, rate controlled 3. Hypertension 4. Hyperlipidemia PLAN: 1. Continue present therapy 2. Patient is cleared for discharge by follow-up in the office with Dr. De Leon in 1-2 weeks. Nurse practitioner note has been reviewed, I agree with the documented findings and plan of care. Patient was seen and examined. Objective - Vital Signs Vital signs: Vital Signs Temp 98.0 F 02/02/23 07:00 Pulse 67 02/02/23 07:00 Resp 16 02/02/23 07:00 BP 137/75 02/02/23 07:00 Pulse Ox 99 02/02/23 07:00 FiO2 Intake & Output 02/01/23 02/02/23 02/02/23 18:59 06:59 18:59 Intake Total 118 Balance 118 Intake: Oral 118 Other: Voiding Method Bedside Commode # Voids 1 2 - Labs CBC & Chem 7: 02/02/23 05:50 02/02/23 05:50 Labs: Abnormal Lab Results - Last 24 Hours (Table) 02/01/23 Range/Units 04:23 WBC 18.26 H (4.50-10.00) X 10*3/uL RBC 2.89 L (4.10-5.20) X 10*6/uL Hgb 8.5 L (12.0-15.0) d/dL Hct 26.6 L (37.2-46.3) % Neutrophils # 17.06 H (1.80-7.70) X 10*3/uL Lymphocytes # 0.46 L (0.90-5.00) X 10*3/uL Eosinophils # 0 L (0.04-0.35) X 10*3/uL Microbiology - Last 24 Hours (Table) 01/30/23 13:50 Blood Culture - Preliminary Blood 01/30/23 13:35 Blood Culture - Preliminary Blood
--- NOTE | 2023-02-03 17:50 | P.DS ---
Providers Date of admission: 01/30/23 13:25 Attending physician: Dawn Rivera Consults: 01/30/23 15:30 Consult Physician Routine Consulting Provider: To Judd Consult Reason/Comments: dyspnea Do you want consulting provider notified?: Yes 01/30/23 15:31 Consult Physician Routine Consulting Provider: Michael Howell Consult Reason/Comments: afib Do you want consulting provider notified?: Yes Primary care physician: Dez Bowen Hospital Course: Final Diagnosis -Asthma excerbation with history of persistent bronchial asthma -Leukocytosis likely steroid induced, WBC improving off steroids -Chronic atrial fibrillation on eliquis, converted to normal sinus rhythm s/p PABLITO cardioversion. -Gastroesophageal reflux disease -Hyperlipidemia -Hypertension -hypothyroidism Discharge Disposition Patient is stable for discharge has been cleared by cardiology s/p PABLITO Cardioversion and currently converted to normal sinus rhythm. Remains on anticoagulation. Patient has been cleared by pulmonary services and recommending no steroids or antibiotics on discharge. White blood cell count is improving and recommend to repeat in 2 to 3 days outpatient. Hospital Course Patient is a pleasant 77-year-old female with history of hypertension, hyperlipidemia, GERD, hypothyroidism, asthma and chronic atrial fibrillation she is anticoagulated. Came in with compensative shortness of breath is on 2 L of she usually doesn't wear any oxygen at home. Also has a cough without sputum production noted that patient was recently treated for pneumonia and asthma exacerbation. Patient is admitted for asthma exacerbation patient is saturating at 91% on 2-3L of oxygen, patient is negative for influenza, RSV and COVID-19. Chest x-ray is suspicious for pulmonary edema although patient's BNP is only 800, patient does have leukocytosis probably secondary to systemic steroids she was on which she completed yesterday. Patient denied any fever chills. Pro- calcitonin was found to be normal antibiotics discontinued and pulmonary not recommending any further antibiotics they were stopped. Patient remains having faint scattered wheezing as well as atrial fibrillation heart rate in the high 90s. Cardiology was following him planning to undergo outpatient PABLITO cardioversion which was completed while patient was hospitalized. Findings are aortic valve is tricuspid and functioning normally without aortic regurgitation, there is mild mitral regurgitation, mild tricuspid regurgitation, left atrial appendage is clear with no left atrial appendage thrombus and EF of 55%. Patient received one synchronized cardioversion with 200 J and was converted to normal sinus rhythm from atrial fibrillation. Patient was able to be weaned off the oxygen and was saturating 96% on room air. Wheezing has improved and patient's shortness of breath is also improved. Most recent labs show a white count of 13.9 down from 21 on admission, sodium is normal 138, BUN 28, creatinine 0.8. Patients lungs are clear. S1 S2 auscultated with regular rate and rhythm. Patient will be discharged home with the above mentioned recommendations. Please see medication Reconciliation for a list of current medication. Thank you for allowing us to participate in the care of this patient. The impression and plan of care has been dictated by Caroline Oliver, Nurse Practitioner as directed. Dr. Nicole MD I have performed a history and physical examination and medical decision making of this patient, discussed the same with the dictator, and agree with the dictators assessment and plan as written, documented as a scribe. Based on total visit time, I have performed more than 50% of this visit. Patient Condition at Discharge: Stable Plan - Discharge Summary Discharge Rx Participant: No New Discharge Prescriptions: New Budesonide-Formot 160-4.5 Mcg [Symbicort 160-4.5 Mcg Inhaler] 2 puff INHALATION RT-BID #1 each Benzonatate [Tessalon Perles] 200 mg PO TID PRN #20 cap PRN Reason: Cough Continue Montelukast Sodium [Singulair] 10 mg PO HS Albuterol Sulfate [Albuterol Sulfate Hfa] 2 puff INHALATION RT-QID PRN PRN Reason: Shortness Of Breath Levothyroxine Sodium [Synthroid] 88 mcg PO DAILY@1200 Multivit-Min/Iron/Folic/Lutein [Centrum Silver Women Tablet] 1 tab PO DAILY@1200 Omeprazole 20 mg PO DAILY Alendronate Sodium [Fosamax] 70 mg PO AHMADI Cholecalciferol [Vitamin D3 (25 Mcg = 1000 Iu)] 50 mcg PO Q2D@1200 Apixaban [Eliquis] 5 mg PO BID buPROPion [Wellbutrin] 75 mg PO DAILY Divalproex Sodium [Depakote] 500 mg PO HS L.acidoph,Paracasei, B.lactis [Probiotic] 1 cap PO DAILY@1200 lisinopriL [Zestril] 10 mg PO BID QUEtiapine [SEROquel] 50 mg PO BID traZODone HCL [Desyrel] 50 mg PO HS PRN PRN Reason: Insomnia Folic Acid 0.8 mg PO DAILY@1200 Diltiazem Cd [Cardizem CD] 240 mg PO DAILY Flecainide [Tambocor] 50 mg PO BID Loratadine 10 mg PO DAILY Pravastatin Sodium [Pravachol] 40 mg PO HS QUEtiapine [SEROquel] 100 mg PO HS Metoprolol Tartrate 25 mg PO BID #60 tab Chlorthalidone 25 mg PO DAILY PRN PRN Reason: Edema Discontinued Budesonide/Formoterol Fumarate [Symbicort 80-4.5 Mcg Inhaler] 2 puff INHALATION RT-BID Discharge Medication List Albuterol Sulfate [Albuterol Sulfate Hfa] 2 puff INHALATION RT-QID PRN 03/12/20 [History] Levothyroxine Sodium [Synthroid] 88 mcg PO DAILY@1200 03/12/20 [History] Montelukast Sodium [Singulair] 10 mg PO HS 03/12/20 [History] Multivit-Min/Iron/Folic/Lutein [Centrum Silver Women Tablet] 1 tab PO DAILY@1200 03/12/20 [History] Omeprazole 20 mg PO DAILY 03/12/20 [History] Alendronate Sodium [Fosamax] 70 mg PO AHMADI 01/23/22 [History] Cholecalciferol [Vitamin D3 (25 Mcg = 1000 Iu)] 50 mcg PO Q2D@1200 07/15/22 [History] Folic Acid 0.8 mg PO DAILY@1200 07/15/22 [History] Apixaban [Eliquis] 5 mg PO BID 01/14/23 [History] Diltiazem Cd [Cardizem CD] 240 mg PO DAILY 01/14/23 [History] Divalproex Sodium [Depakote] 500 mg PO HS 01/14/23 [History] Flecainide [Tambocor] 50 mg PO BID 01/14/23 [History] L.acidoph,Paracasei, B.lactis [Probiotic] 1 cap PO DAILY@1200 01/14/23 [History] Loratadine 10 mg PO DAILY 01/14/23 [History] Pravastatin Sodium [Pravachol] 40 mg PO HS 01/14/23 [History] QUEtiapine [SEROquel] 50 mg PO BID 01/14/23 [History] QUEtiapine [SEROquel] 100 mg PO HS 01/14/23 [History] buPROPion [Wellbutrin] 75 mg PO DAILY 01/14/23 [History] lisinopriL [Zestril] 10 mg PO BID 01/14/23 [History] traZODone HCL [Desyrel] 50 mg PO HS PRN 01/14/23 [History] Metoprolol Tartrate 25 mg PO BID #60 tab 01/17/23 [Rx] Chlorthalidone 25 mg PO DAILY PRN 01/30/23 [History] Benzonatate [Tessalon Perles] 200 mg PO TID PRN #20 cap 02/02/23 [Rx] Budesonide-Formot 160-4.5 Mcg [Symbicort 160-4.5 Mcg Inhaler] 2 puff INHALATION RT-BID #1 each 02/02/23 [Rx] Follow up Appointment(s)/Referral(s): Holland De Leon DO [STAFF PHYSICIAN] - 02/09/23 9:00 am To Judd DO [Doctor of Osteopathic Medicine] - 03/01/23 2:00 pm Dez Bowen DO [Primary Care Provider] - 1-2 days Ambulatory/Diagnostic Orders: Basic Metabolic Panel [LAB.AMB] Time Frame: 3 Days, Location: None Selected Complete Blood Count w/diff [LAB.AMB] Time Frame: 3 Days, Location: None Selected Patient Instructions/Handouts: Heart Failure (GEN), Dyspnea (GEN), Cardioversion (GEN), Shortness of Breath (GEN) Activity/Diet/Wound Care/Special Instructions: Symbicort inhaler has been increased to 160-4.5 mg dose a new prescription has been sent in Continue off steroids and repeat labs in 2 to 3 days to monitor white count Follow up with your known sports writer and marker hand on discharge Follow up with your PCP in 1 to 2 days Discharge Disposition: HOME SELF-CARE
== END 2023-02-02 10:33 | disposition home or self-care (01) ==
LOC: EC 10:27 → 6NMEDSUR 13:25
PROVIDERS: ADMIT Internal Medicine; ATTEND Internal Medicine
DX: J45.31 Mild persistent asthma with (acute) exacerbation (principal); D72.829 Elevated white blood cell count, unspecified; I48.20 Chronic atrial fibrillation, unspecified; K21.9 Gastro-esophageal reflux disease without esophagitis; E78.5 Hyperlipidemia, unspecified; I10 Essential (primary) hypertension; E03.9 Hypothyroidism, unspecified; Z20.822 Contact with and (suspected) exposure to COVID-19; I08.1 Rheumatic disorders of both mitral and tricuspid valves; M19.90 Unspecified osteoarthritis, unspecified site; I48.91 Unspecified atrial fibrillation; G47.00 Insomnia, unspecified; H54.8 Legal blindness, as defined in USA; Z86.16 Personal history of COVID-19; Z98.84 Bariatric surgery status; Z96.642 Presence of left artificial hip joint; Z96.651 Presence of right artificial knee joint; Z98.890 Other specified postprocedural states; F90.9 Attention-deficit hyperactivity disorder, unspecified type; F31.9 Bipolar disorder, unspecified; F41.9 Anxiety disorder, unspecified; Z80.52 Family history of malignant neoplasm of bladder; Z82.49 Family history of ischemic heart disease and other diseases of the circulatory system; Z87.891 Personal history of nicotine dependence; Z79.01 Long term (current) use of anticoagulants; Z79.890 Hormone replacement therapy; Z79.51 Long term (current) use of inhaled steroids; Z79.899 Other long term (current) drug therapy; Z88.5 Allergy status to narcotic agent; Z88.8 Allergy status to other drugs, medicaments and biological substances
CPT/HCPCS: 96376 ×3; 96374; 99285; 36415; 94640 ×6; 94760 ×3; 93005 ×2; 92960; 83880; 80053; 80048 ×2; 83605; 83735; 84484; 85025 ×4; 85610; 85730; 87040; 84145; 87636; 71046; G0378 ×4; J2920; J2930 ×2; J0456; J2704; J2001

== ENCOUNTER → 2023-05-16 | Outpatient (CLI) | payer MEDICARE ==
--- NOTE | 2023-05-17 11:00 | MM ---
Reason for Exam: Screening (asymptomatic). Last mammogram was performed 1 year(s) and 4 month(s) ago. Patient History: Menarche at age 10. First Full-Term at age 31. Late child-bearing (after 30). Postmenopausal. Estrogen, starting at age 44 for 22 years, 6 months. Progesterone, starting at age 44 for 22 years, 6 months. Benign Excisional Biopsy on the left side. 05/23/2010, Benign Core Biopsy on the right side. Maternal cousin had breast cancer, age 40. Risk Values: Allie 5 year model risk: 3.9%. NCI Lifetime model risk: 6.9%. Prior Study Comparison: 11/23/2015 Bilateral Screening Mammogram, [facility]. 01/15/2017 Bilateral Screening Mammogram, [facility]. 07/03/2018 Bilateral Screening Mammogram, [facility]. 08/14/2019 Bilateral Screening Mammogram, [facility]. 11/25/2020 Bilateral Screening Mammogram, [facility]. 01/12/2022 Bilateral MG 3D screening mammo w/cad, [facility]. Tissue Density: The breast tissue is heterogeneously dense. This may lower the sensitivity of mammography. Findings: Analyzed By CAD. Pattern appears symmetrical and stable. A core marker is in the right breast. Benign-appearing calcifications within the right breast No suspicious groups of microcalcifications, spiculated or lobular masses, architectural distortion or other secondary signs of malignancy are mammographically apparent. Overall Assessment: Benign, BI-RAD 2 Management: Screening Mammogram of both breasts in 1 year. A negative mammogram report should not preclude additional follow up of suspicious palpable abnormalities. Patient should continue monthly self breast exam. A clinical breast exam by your physician is recommended on an annual basis and results should be correlated with mammographic findings. Electronically signed and approved by: Herber Tim D.O. Radiologis
== END | disposition home or self-care (01) ==
LOC: RADMAMWWP 13:16
PROVIDERS: ATTEND Family Medicine
DX: Z12.31 Encounter for screening mammogram for malignant neoplasm of breast (principal); Z78.0 Asymptomatic menopausal state; Z80.3 Family history of malignant neoplasm of breast
CPT/HCPCS: 77063; 77067

== ENCOUNTER 2023-11-14 16:21 | Emergency (ER) | payer MEDICARE ==
--- NOTE | 2023-11-14 17:53 | XR ---
EXAMINATION TYPE: XR Hip RT and AP Pelvis DATE OF EXAM: 11/14/2023 5:38 PM CLINICAL INDICATION:Female, 78 years old with history of fall; [facility] COMPARISON: None. TECHNIQUE: XR Hip RT and AP Pelvis; hip was examined in the frontal and lateral projections and a AP pelvis. FINDINGS: No evidence for acute process, joint dislocation or significant soft tissue swelling. Bilat eral hip arthroplasties. Hardware appears intact. Severe degeneration changes of the spine with osteophyte formation disc narrowing and osteophyte form ation. IMPRESSION: 1. No acute process. 2. Bilateral hip arthroplasties with hardware intact. 3. Severe degeneration changes of the spine.
--- NOTE | 2023-11-14 18:00 | CT ---
EXAMINATION TYPE: CT brain cspine wo con CT DLP: 1367.4 mGycm, Automated exposure control for dose reduction was used. DATE OF EXAM: 11/14/2023 5:49 PM COMPARISON: 08/31/2023 CLINICAL INDICATION:Female, 78 years old with history of fall, head injury, on eliquis; fall TECHNIQUE: Brain: Multiple axial CT images of the brain were obtained without IV contrast. Cspine: Axial CT images from the skull base to the inferior aspect of T2 we obtained without intraven ous contrast. Coronal and sagittal reformatted images were also reviewed. FINDINGS: Brain: Extra-axial spaces: No abnormal extra-axial fluid collections. Ventricular system: Within normal limits Cerebral parenchyma: Cerebral atrophy. No acute intraparenchymal hemorrhage or mass effect. The hammond -white junction is well differentiated. Scattered hypoattenuating areas are seen within the white mat ter. Cerebellum: Unremarkable. Mass effect: No evidence of midline shift. Intracranial vasculature: unremarkable Soft tissues: Normal. Calvarium/osseous structures: No depressed skull fracture. Paranasal sinuses and mastoid air cells: Clear. Visualized orbits: Orbital contents are intact. Cervical spine: Fracture: None. Osseous structures: Multilevel degenerative disc disease changes with endplate spurring and disc oste ophyte complex's. Vertebral alignment: Straightening of the spinal alignment with reversal of curvature. There is anter olisthesis of C3 and C4 C4 on C5 and retrolisthesis of C5 on C6 and C6 and C7. Anterolisthesis of C7 on T1. Spinal canal/Neural Foramina: Disc osteophyte complexes at C4-C5 with at least mild spinal canal sten osis. Facet joint uncovertebral joint arthropathy scattered throughout the cervical spine with varyin g degrees of neural foraminal stenosis. Neck soft tissues: Prevertebral soft tissues are within normal limits. Other: The airway is patent. The lung apices are clear. IMPRESSION: 1. No acute intracranial process. 2. Nonspecific white matter changes, likely secondary to chronic small vessel ischemic disease. 3. No evidence of cervical spine fracture. 4. Moderate to severe multilevel degenerative disc disease.
[2023-11-14 18:09] LABS: Basophils % (A) 0 %; Eosinophils # (A) 0.1 k/uL (0-0.7); Eosinophils % (A) 1 %; HCT 34.1 % (34.0-46.0); Lymphocytes # (A) 1.4 k/uL (1.0-4.8); Lymphocytes % (A) 9 %; MCH 29.7 pg (25.0-35.0); MCHC 32.4 g/dL (31.0-37.0); MCV 91.7 fL (80.0-100.0); Mean Platelet Volume 9.4; Monocytes # (A) 0.5 k/uL (0-1.0); Monocytes % (A) 3 %; Neutrophils # (A) 13.9 k/uL (1.3-7.7); Neutrophils % (A) 87 %; Platelet Count 251 k/uL (150-450); RBC 3.72 m/uL (3.80-5.40); RDW 13.4 % (11.5-15.5)
[2023-11-14 18:21] LABS: ALT 13 U/L (4-34); AST 27 U/L (14-36); African American GFR (CKD) >90 (>60 ml/min/1.73 sqM); Albumin 3.8 g/dL (3.5-5.0); Alkaline Phosphatase 66 U/L (38-126); Anion Gap 7 mmol/L; Blood Urea Nitrogen 21 mg/dL (7-17); Calcium 9.6 mg/dL (8.4-10.2); Carbon Dioxide 26 mmol/L (22-30); Chloride 103 mmol/L (98-107); Glucose 107 mg/dL (74-99); Non-African American GFR(CKD) 82 (>60 ml/min/1.73 sqM); Potassium 4.8 mmol/L (3.5-5.1); Sodium 136 mmol/L (137-145); Total Bilirubin 0.4 mg/dL (0.2-1.3); Total Protein 7.1 g/dL (6.3-8.2)
[2023-11-14 18:42] VITALS: PULSE 68
--- NOTE | 2023-11-14 18:50 | ED ---
Fall HPI - General Chief Complaint: Fall Stated Complaint: Fall on thinner-R leg injury Time Seen by Provider: 11/14/23 16:30 Source: patient, family Mode of arrival: wheelchair - History of Present Illness Initial Comments: 78-year-old female who presents emergency department reporting right hip pain. She was in the shower when she accidentally slipped. She fell backwards and hit her right hip on the tub ledge. She has had history of hip replacements in the past. She has had hip dislocations. States that the pain is not severe. She did take some Tylenol at home before coming into the hospital. She denies hitting her head however upon my evaluation there is external signs of injury. Patient is on anticoagulation. No reported confusion or headache. Patient denies syncopal episode. She denies any knee or ankle pain. She has been able to slightly weight-bear on the extremity. Denies any numbness or tingling. Denies any chest or back pain. No other alleviating, precipitating or modifying factors - Related Data Home Medications Medication Instructions Recorded Confirmed Albuterol Sulfate [Albuterol 2 puff INHALATION RT-QID PRN 03/12/20 11/14/23 Sulfate Hfa] Levothyroxine Sodium [Synthroid] 88 mcg PO DAILY@1200 03/12/20 11/14/23 Montelukast Sodium [Singulair] 10 mg PO 03/12/20 11/14/23 Multivit-Min/Iron/Folic/Lutein 1 tab PO DAILY@1200 03/12/20 11/14/23 [Centrum Silver Women Tablet] Alendronate Sodium [Fosamax] 70 mg PO AHMADI 01/23/22 11/14/23 Folic Acid 0.8 mg PO DAILY@1200 07/15/22 11/14/23 Apixaban [Eliquis] 5 mg PO BID 01/14/23 11/14/23 Divalproex Sodium [Depakote] 500 mg PO HS 01/14/23 11/14/23 L.acidoph,Paracasei, B.lactis 1 cap PO DAILY@1200 01/14/23 11/14/23 [Probiotic] Pravastatin Sodium [Pravachol] 40 mg PO HS 01/14/23 11/14/23 QUEtiapine [SEROquel] 50 mg PO DAILY 01/14/23 11/14/23 lisinopriL [Zestril] 10 mg PO BID 01/14/23 11/14/23 traZODone HCL [Desyrel] 50 mg PO HS 01/14/23 11/14/23 Calcium Carbonate [Calcium] 600 mg PO DAILY@1200 08/31/23 11/14/23 Cetirizine HCl [Zyrtec] 10 mg PO HS 08/31/23 11/14/23 Metoprolol Succinate [Metoprolol 25 mg PO DAILY 08/31/23 11/14/23 Succinate ER] Melatonin 10 mg PO HS 11/14/23 11/14/23 Omeprazole 20 mg PO DAILY 11/14/23 11/14/23 QUEtiapine FUMARATE 150 mg PO HS 11/14/23 11/14/23 buPROPion XL [Wellbutrin XL] 150 mg PO DAILY 11/14/23 11/14/23 Allergies Allergy/AdvReac Type Severity Reaction Status Date / Time buspirone [From BuSpar] AdvReac Insomnia Verified 11/14/23 18:15 fluticasone furoate AdvReac HTN Verified 11/14/23 18:15 [From Trelegy Ellipta] lurasidone [From Latuda] AdvReac Parkinson Verified 11/14/23 18:15 Symptoms Opioids - Morphine Analogues AdvReac AGITATION Verified 11/14/23 18:15 Opioids-Meperidine and AdvReac AGITATION Verified 11/14/23 18:15 Related spironolactone AdvReac ANXIETY Verified 11/14/23 18:15 [From Aldactone] AND DEPRESSION umeclidinium AdvReac HTN Verified 11/14/23 18:15 [From Trelegy Ellipta] vilanterol AdvReac HTN Verified 11/14/23 18:15 [From Trelegy Ellipta] OPIATES AdvReac Unknown AGITATION Uncoded 01/30/23 13:38 Review of Systems ROS Statement: Those systems with pertinent positive or pertinent negative responses have been documented in the HPI. ROS Other: All systems not noted in ROS Statement are negative. Past Medical History Past Medical History: Atrial Fibrillation, Asthma, GERD/Reflux, Hyperlipidemia, Hypertension, Osteoarthritis (OA), Thyroid Disorder Additional Past Medical History / Comment(s): SOB inceased since afib dx in October 2022,recent January 2023 admission for pneumonia-last dose prednisone taper 01-30-23, Insomnia, past migraines,PAST HYPERTENSION , sinus problems at times,HIP DISLOCATION X20, legally blind Lt eye,Covid infection spring 2021 History of Any Multi-Drug Resistant Organisms: None Reported Past Surgical History: Bariatric Surgery, Joint Replacement, Orthopedic Surgery, Tubal Ligation Additional Past Surgical History / Comment(s): 2003 lap band, panniculectomy, R hip ORIF/total arthroplasty, L hip arthroplasty x 2, r knee ACL repair and total right arthroplasty, R thumb sx, D&Cs, EGDs/colonoscopies, R breast benign bx. EGD Past Anesthesia/Blood Transfusion Reactions: No Reported Reaction Past Psychological History: ADD/ADHD, Anxiety, Bipolar, Depression Smoking Status: Former smoker Past Alcohol Use History: Occasional Past Drug Use History: None Reported - Past Family History Mother History Unknown: Yes Family Medical History: Cancer Additional Family Medical History / Comment(s): BLADDER CA- AT 70 YEARS OLD. Father History Unknown: Yes Family Medical History: Coronary Artery Disease (CAD), Myocardial Infarction ([place]) Additional Family Medical History / Comment(s): AT 60 YRS OLD General Exam Limitations: no limitations General appearance: alert, in no apparent distress Head exam: Present: atraumatic, normocephalic, normal inspection Eye exam: Present: normal appearance, PERRL, EOMI. Absent: scleral icterus, conjunctival injection, periorbital swelling ENT exam: Present: normal exam, mucous membranes moist Neck exam: Present: normal inspection. Absent: tenderness, meningismus, lymphadenopathy Respiratory exam: Present: normal lung sounds bilaterally. Absent: respiratory distress, wheezes, rales, rhonchi, stridor Cardiovascular Exam: Present: regular rate, normal rhythm, normal heart sounds. Absent: systolic murmur, diastolic murmur, rubs, gallop, clicks GI/Abdominal exam: Present: soft, normal bowel sounds. Absent: distended, tenderness, guarding, rebound, rigid Extremities exam: Present: tenderness (Patient has tenderness to palpation of the right hip. Right leg appears shortened. There is a hematoma to the posterior aspect. Compartments are soft. She has intact sensation over the medial, lateral and dorsal aspects of the lower extremity. Intact DP and PT pulses bilaterally.), normal capillary refill. Absent: pedal edema, joint swelling, calf tenderness Back exam: Present: normal inspection Neurological exam: Present: alert, oriented X3, CN II-XII intact Psychiatric exam: Present: normal affect, normal mood Skin exam: Present: warm, dry, intact, normal color. Absent: rash Course Vital Signs 11/14/23 11/14/23 11/14/23 16:27 18:00 18:59 Temperature 97.6 F 97.9 F Pulse Rate 85 68 68 Respiratory 18 17 18 Rate Blood Pressure 143/100 172/82 168/83 O2 Sat by Pulse 93 L 96 98 Oximetry Medical Decision Making - Medical Decision Making Was pt. sent in by a medical professional or institution (, PA, LINEN ROOM ATTENDANT, urgent care, hospital, or fpc...) When possible be specific @ -No Did you speak to anyone other than the patient for history (EMS, parent, family, police, friend...)? What history was obtained from this source @ -Spoke additionally with the patient's Did you review nursing and triage notes (agree or disagree)? Why? @ -I reviewed and agree with nursing and triage notes Were old charts reviewed (outside hosp., previous admission, EMS record, old EKG, old radiological studies, urgent care reports/EKG's, fpc records)? Report findings @ -No old charts were reviewed Differential Diagnosis (chest pain, altered mental status, abdominal pain women, abdominal pain men, vaginal bleeding, weakness, fever, dyspnea, syncope, headache, dizziness, GI bleed, back pain, seizure, CVA, palpatations, mental health, musculoskeletal)? @ -Differential Musculoskeletal Muscular strain, contusion, ligament sprain, fracture, arthritis, septic arthritis, bursitis, cellulitis, muscle spasm, nerve compression, DVT, arterial occlusion, herpes zoster, electrolyte abnormality, tumor.... This is not meant to be in all inclusive list EKG interpreted by me (3pts min.). @ -Not done X-rays interpreted by me (1pt min.). @ -Yes and demonstrates no acute fracture CT interpreted by me (1pt min.). @ -None done U/S interpreted by me (1pt. min.). @ -None done What testing was considered but not performed or refused? (CT, X-rays, U/S, labs)? Why? @ -CT imaging was considered however the patient was able to weight-bear slightly. Would like to proceed home and see how her pain does over the next day What meds were considered but not given or refused? Why? @ -None Did you discuss the management of the patient with other professionals (professionals i.e. , PA, LINEN ROOM ATTENDANT, lab, RT, psych nurse, socially responsible investment adviser, cylinder handler, teacher, civil preparedness training officer, caseworker protective services)? Give summary @ -No Was smoking cessation discussed for >3mins.? @ -No Was critical care preformed (if so, how long)? @ -No Were there social determinants of health that impacted care today? How? (Homelessness, low income, unemployed, alcoholism, drug addiction, transportation, low edu. Level, literacy, decrease access to med. care, intermediate, rehab)? @ -No Was there de-escalation of care discussed even if they declined (Discuss DNR or withdrawal of care, Hospice)? DNR status @ -No What co-morbidities impacted this encounter? (DM, HTN, Smoking, COPD, CAD, Cancer, CVA, ARF, Chemo, Hep., AIDS, mental health diagnosis, sleep apnea, morbid obesity)? @ -Osteopenia, A-fib on anticoagulation Was patient admitted / discharged? Hospital course, mention meds given and route, prescriptions, significant lab abnormalities, going to OR and other pertinent info. @ -Upon arrival patient was seen and evaluated in the hallway due to bed status. Thorough history and physical exam was performed. Patient does go for x-ray imaging of her right hip. She is additionally sent for CT of her brain and cervical spine as she does have outward signs of trauma to her head and is on anticoagulation. Imaging is reviewed and negative. These results are discussed with the patient. She was able to get up and ambulate with assistance and weight-bear some. I did offer CT of the hip however patient will go home at this time and see how her pain goes. Patient is informed that if she has continued pain or worsening pain she may need repeat imaging to include a CT. She will take Tylenol for pain control. Additional pain medications is offered however the patient refuses. Patient will follow-up with Dr. Hawkins from orthopedics as this is her orthopedist in the area. Patient discharged in stable condition Undiagnosed new problem with uncertain prognosis? @ -Yes Drug Therapy requiring intensive monitoring for toxicity (Heparin, Nitro, Insulin, Cardizem)? @ -No Were any procedures done? @ -No Diagnosis/symptom? @ -Acute fall, acute right temporal hematoma, blunt head injury, acute right hip pain Acute, or Chronic, or Acute on Chronic? @ -Acute Uncomplicated (without systemic symptoms) or Complicated (systemic symptoms)? @ -Complicated Side effects of treatment? @ -No Exacerbation, Progression, or Severe Exacerbation? @ -No Poses a threat to life or bodily function? How? (Chest pain, [place], [place], pneumonia, PE, COPD, DKA, ARF, appy, cholecystitis, CVA, Diverticulitis, Homicidal, Suicidal, threat to staff... and all critical care pts) @ -No - Lab Data Result diagrams: 11/14/23 17:55 11/14/23 17:55 Lab Results 11/14/23 11/14/23 Range/Units 17:55 17:55 WBC 16.0 H (3.8-10.6) k/uL RBC 3.72 L (3.80-5.40) m/uL Hgb 11.0 L (11.4-16.0) gm/dL Hct 34.1 (34.0-46.0) % MCV 91.7 (80.0-100.0) fL MCH 29.7 (25.0-35.0) pg MCHC 32.4 (31.0-37.0) g/dL RDW 13.4 (11.5-15.5) % Plt Count 251 (150-450) k/uL MPV 9.4 Neutrophils % 87 % Lymphocytes % 9 % Monocytes % 3 % Eosinophils % 1 % Basophils % 0 % Neutrophils # 13.9 H (1.3-7.7) k/uL Lymphocytes # 1.4 (1.0-4.8) k/uL Monocytes # 0.5 (0-1.0) k/uL Eosinophils # 0.1 (0-0.7) k/uL Basophils # 0.0 (0-0.2) k/uL Sodium 136 L (137-145) mmol/L Potassium 4.8 (3.5-5.1) mmol/L Chloride 103 (98-107) mmol/L Carbon Dioxide 26 (22-30) mmol/L Anion Gap 7 mmol/L BUN 21 H (7-17) mg/dL Creatinine 0.71 (0.52-1.04) mg/dL Est GFR (CKD-EPI)AfAm >90 (>60 ml/min/1.73 sqM) Est GFR (CKD-EPI)NonAf 82 (>60 ml/min/1.73 sqM) Glucose 107 H (74-99) mg/dL Calcium 9.6 (8.4-10.2) mg/dL Total Bilirubin 0.4 (0.2-1.3) mg/dL AST 27 (14-36) U/L ALT 13 (4-34) U/L Alkaline Phosphatase 66 (38-126) U/L Total Protein 7.1 (6.3-8.2) g/dL Albumin 3.8 (3.5-5.0) g/dL Disposition Clinical Impression: Fall, Acute right hip pain, Head injury, Anticoagulant effect Disposition: HOME SELF-CARE Condition: Stable Instructions (If sedation given, give patient instructions): Hip Pain (ED) Additional Instructions: Please weight-bear as tolerated. Make an appointment with Dr. Hawkins for follow- up. If you have continued pain, you will need additional imaging. Return for any new or worsening symptoms Is patient prescribed a controlled substance at d/c from ED?: No Referrals: Dez Bowen DO [Primary Care Provider] - 1-2 days Juve Rangel MD [STAFF PHYSICIAN] - 1-2 days Time of Disposition: 18:50
[2023-11-14 19:20] VITALS: BP 168/83; RESP 18; TEMP 97.9
== END 2023-11-14 19:09 | disposition home or self-care (01) ==
LOC: EC 16:21
DX: S70.01XA Contusion of right hip, initial encounter (principal); S00.03XA Contusion of scalp, initial encounter; I48.91 Unspecified atrial fibrillation; M85.80 Other specified disorders of bone density and structure, unspecified site; Z79.01 Long term (current) use of anticoagulants; Z88.5 Allergy status to narcotic agent; Z88.8 Allergy status to other drugs, medicaments and biological substances; Z87.891 Personal history of nicotine dependence; Z86.16 Personal history of COVID-19; W18.2XXA Fall in (into) shower or empty bathtub, initial encounter
CPT/HCPCS: 36415; 70450; 72125; 73502; 80053; 85025; 99284

== ENCOUNTER 2024-03-09 22:41 | Inpatient (IN) | payer MEDICARE ==
[2024-03-09] MEDS: SODIUM CHLORIDE 0.9% 1,000 ML IV STA (23:30)
[2024-03-09 23:38] LABS: Basophils % (A) 0 %; Eosinophils # (A) 0.1 k/uL (0-0.7); Eosinophils % (A) 1 %; HCT 24.7 % (34.0-46.0); HGB 8.2 gm/dL (11.4-16.0); Lymphocytes # (A) 0.6 k/uL (1.0-4.8); Lymphocytes % (A) 5 %; MCH 30.9 pg (25.0-35.0); MCHC 33.4 g/dL (31.0-37.0); MCV 92.6 fL (80.0-100.0); Mean Platelet Volume 9.3; Monocytes # (A) 0.3 k/uL (0-1.0); Monocytes % (A) 3 %; Neutrophils % (A) 91 %; Platelet Count 195 k/uL (150-450); RBC 2.67 m/uL (3.80-5.40); RDW 13.9 % (11.5-15.5)
[2024-03-09] MEDS: PANTOPRAZOLE 40 MG/10 ML VIAL IVP STA (23:41)
[2024-03-09 23:56] LABS: Prothrombin Time 10.9 sec (10.0-12.5)
[2024-03-10 00:01] LABS: Partial Thromboplastin Time 20.8 sec (22.0-30.0)
[2024-03-10 00:05] LABS: ALT 12 U/L (4-34); AST 20 U/L (14-36); African American GFR (CKD) 37 (>60 ml/min/1.73 sqM); Albumin 3.2 g/dL (3.5-5.0); Alkaline Phosphatase 67 U/L (38-126); Anion Gap 5 mmol/L; Blood Urea Nitrogen 34 mg/dL (7-17); Calcium 9.1 mg/dL (8.4-10.2); Carbon Dioxide 22 mmol/L (22-30); Chloride 106 mmol/L (98-107); Glucose 234 mg/dL (74-99); Lipase 94 U/L (23-300); Magnesium 2.1 mg/dL (1.6-2.3); Non-African American GFR(CKD) 32 (>60 ml/min/1.73 sqM); Potassium 4.6 mmol/L (3.5-5.1); Sodium 133 mmol/L (137-145); Total Bilirubin 0.2 mg/dL (0.2-1.3); Total Protein 5.8 g/dL (6.3-8.2)
[2024-03-10 00:21] LABS: Lactic Acid, Venous 1.9 mmol/L (0.7-2.0)
--- NOTE | 2024-03-10 01:03 | XR ---
EXAMINATION TYPE: XR chest 1V portable DATE OF EXAM: 03/10/2024 COMPARISON: Prior chest x-ray August 31, 2023 HISTORY: Pain. TECHNIQUE: Single frontal view of the chest is obtained. FINDINGS: There is no suspicious new focal air space opacity, pleural effusion, or pneumothorax see n. The cardiac silhouette size remains upper limits of normal with ectatic and atherosclerotic aorta . Degenerative change bilateral shoulders is present. IMPRESSION: No acute pulmonary process.
--- NOTE | 2024-03-10 01:16 | CT ---
EXAMINATION TYPE: CT angio abdomen pelvis DATE OF EXAM: 03/10/2024 HISTORY: pt. slipped off her shower chair. EMS noticed delvalle had bloody diarrhea. Pt. is also hypoten sive per EMS at 80/40. Possible GI Bleed. CT DLP: 1652.1mGycm Automated Exposure Control for Dose Reduction was Utilized. CONTRAST: CTA scan of the abdomen and pelvis is performed without and with IV Contrast, patient injected with 8 0 mL of Isovue 370. GI bleed protocol. COMPARISON: Prior CT September 01, 2023 FINDINGS: VASCULAR: Moderate calcified plaque of the aorta extends into branch vessels LUNG BASES: Coronary artery calcifications redemonstrated. LIVER/GB: Gallbladder is surgically absent. PANCREAS: No significant abnormality is seen. SPLEEN: No significant abnormality is seen. ADRENALS: No significant abnormality is seen. KIDNEYS: A 1 cm thin-walled cyst in the right kidney axial image 30. BOWEL: Lap band device is redemonstrated. Position is stable and satisfactory. No abnormal small or l arge bowel dilatation. No suspicious blush of contrast on immediate postcontrast images with more pro minent progression on delayed phase images to identify source of active GI hemorrhage UTERUS/ADNEXA: Suboptimally evaluated. Persistent 3.8 cm thin-walled cyst in the right pelvis or reac tive image 58 LYMPH NODES: No greater than 1cm abdominal or pelvic lymph nodes are appreciated. OSSEOUS STRUCTURES: Metallic hardware from bilateral hip arthroplasty causes streak artifact somewhat limiting evaluation of pelvic structures. Asymmetric prominence posteriorly surrounding the left hip could reflect bursitis is similar to prior CT. There is S-shaped scoliosis with multilevel spurring throughout the thoracolumbar spine. OTHER: No significant additional abnormality is seen. IMPRESSION: 1. Source of active GI hemorrhage is not clearly identified. Slightly suboptimal as there is some hyp erdense material within the bowel loops on noncontrast images.
[2024-03-10] MEDS ORDERED: NALOXONE 0.4 MG/ML 1 ML VIAL IV PRN (01:51)
--- NOTE | 2024-03-10 01:55 | ED ---
General Adult HPI - General Chief complaint: GI Bleed Stated complaint: GI Time Seen by Provider: 03/09/24 23:10 Source: patient, family, EMS, RN notes reviewed, old records reviewed Mode of arrival: EMS - History of Present Illness Initial comments: Patient is a 78-year-old female with past medical history remarkable for A-fib on aspirin and Plavix, asthma, or GERD, hypertension. Has chronic weakness. Recently had a Watchman device placed in December. Recently taken off Eliquis within the last 7 days and placed on aspirin and Plavix alone. Has chronic dark black tarry stools from iron use and iron supplementation. Does have a history of GI bleeding in the past. Presents to the emergency department for 1 day of worsening weakness. Has been on antibiotics for a possible cellulitis of the left thigh. Patient was constipated at home but had a normal bowel movement followed by diarrhea. It was more of the dark tarry stool that is chronic for the patient. Was found to be mildly hypotensive by EMS. Was brought here for further evaluation. Has no acute complaints at this time other than chronic generalized weakness. Denies fevers, chills, cough, shortness of breath, chest pain. No significant abdominal pain. Some pain at the site of a lysed abscess on her left thigh for which she is on Bactrim. Presents with her who is a physician for further evaluation. - Related Data Home Medications Medication Instructions Recorded Confirmed Albuterol Sulfate [Albuterol 2 puff INHALATION RT-QID PRN 03/12/20 11/14/23 Sulfate Hfa] Levothyroxine Sodium [Synthroid] 88 mcg PO DAILY@1200 03/12/20 11/14/23 Montelukast Sodium [Singulair] 10 mg PO 03/12/20 11/14/23 Multivit-Min/Iron/Folic/Lutein 1 tab PO DAILY@1200 03/12/20 11/14/23 [Centrum Silver Women Tablet] Alendronate Sodium [Fosamax] 70 mg PO AHMADI 01/23/22 11/14/23 Folic Acid 0.8 mg PO DAILY@1200 07/15/22 11/14/23 Apixaban [Eliquis] 5 mg PO BID 01/14/23 11/14/23 Divalproex Sodium [Depakote] 500 mg PO 01/14/23 11/14/23 L.acidoph,Paracasei, B.lactis 1 cap PO DAILY@1200 01/14/23 11/14/23 [Probiotic] Pravastatin Sodium [Pravachol] 40 mg PO HS 01/14/23 11/14/23 QUEtiapine [SEROquel] 50 mg PO DAILY 01/14/23 11/14/23 lisinopriL [Zestril] 10 mg PO BID 01/14/23 11/14/23 traZODone HCL [Desyrel] 50 mg PO HS 01/14/23 11/14/23 Calcium Carbonate [Calcium] 600 mg PO DAILY@1200 08/31/23 11/14/23 Cetirizine HCl [Zyrtec] 10 mg PO HS 08/31/23 11/14/23 Metoprolol Succinate [Metoprolol 25 mg PO DAILY 08/31/23 11/14/23 Succinate ER] Melatonin 10 mg PO HS 11/14/23 11/14/23 Omeprazole 20 mg PO DAILY 11/14/23 11/14/23 QUEtiapine FUMARATE 150 mg PO HS 11/14/23 11/14/23 buPROPion XL [Wellbutrin XL] 150 mg PO DAILY 11/14/23 11/14/23 Allergies Allergy/AdvReac Type Severity Reaction Status Date / Time buspirone [From BuSpar] AdvReac Insomnia Verified 11/14/23 18:15 fluticasone furoate AdvReac HTN Verified 11/14/23 18:15 [From Trelegy Ellipta] lurasidone [From Latuda] AdvReac Parkinson Verified 11/14/23 18:15 Symptoms Opioids - Morphine Analogues AdvReac AGITATION Verified 11/14/23 18:15 Opioids-Meperidine and AdvReac AGITATION Verified 11/14/23 18:15 Related spironolactone AdvReac ANXIETY Verified 11/14/23 18:15 [From Aldactone] AND DEPRESSION umeclidinium AdvReac HTN Verified 11/14/23 18:15 [From Trelegy Ellipta] vilanterol AdvReac HTN Verified 11/14/23 18:15 [From Trelegy Ellipta] OPIATES AdvReac Unknown AGITATION Uncoded 01/30/23 13:38 Review of Systems ROS Statement: Those systems with pertinent positive or pertinent negative responses have been documented in the HPI. Review of Systems: CONST: Denies fever EYES: Denies blurry vision ENT: Denies nasal congestion C/V: Denies Chest pain RESP: Denies shortness of breath GI: Denies abdominal pain : Denies dysuria SKIN: Denies rash. MSK: Denies joint pain. NEURO: Denies headache ROS Other: All systems not noted in ROS Statement are negative. Past Medical History Past Medical History: Atrial Fibrillation, Asthma, GERD/Reflux, Hyperlipidemia, Hypertension, Osteoarthritis (OA), Thyroid Disorder Additional Past Medical History / Comment(s): SOB inceased since afib dx in October 2022,recent January 2023 admission for pneumonia-last dose prednisone taper 01-30-23, Insomnia, past migraines,PAST HYPERTENSION , sinus problems at times,HIP DISLOCATION X20, legally blind Lt eye,Covid infection spring 2021 History of Any Multi-Drug Resistant Organisms: None Reported Past Surgical History: Bariatric Surgery, Joint Replacement, Orthopedic Surgery, Tubal Ligation Additional Past Surgical History / Comment(s): 2003 lap band, panniculectomy, R hip ORIF/total arthroplasty, L hip arthroplasty x 2, r knee ACL repair and total right arthroplasty, R thumb sx, D&Cs, EGDs/colonoscopies, R breast benign bx. EGD Past Anesthesia/Blood Transfusion Reactions: No Reported Reaction Past Psychological History: ADD/ADHD, Anxiety, Bipolar, Depression Smoking Status: Former smoker Past Alcohol Use History: Occasional Past Drug Use History: None Reported - Past Family History Mother History Unknown: Yes Family Medical History: Cancer Additional Family Medical History / Comment(s): BLADDER CA- AT 70 YEARS OLD. Father History Unknown: Yes Family Medical History: Coronary Artery Disease (CAD), Myocardial Infarction ([place]) Additional Family Medical History / Comment(s): AT 60 YRS OLD General Exam - General Exam Comments Initial Comments: General: Appears in no acute distress. HEAD: Normal with no signs of head trauma. EYES: PERRLA, EOMI, conjunctiva normal, no discharge. ENT: Hearing grossly intact, normal oropharynx. RESPIRATORY: Clear breath sounds bilaterally. No wheezes, rales, or rhonchi. C/V: Regular rate and rhythm. S1 and S2 auscultated, no edema, peripheral pulses 2+ and intact throughout ABD: Abd is soft, nontender, nondistended. Rectal exam positive for dark tarry stool which patient states is chronic. EXT: Normal range of motion, no obvious deformity SKIN: No rashes or lesions observed on exposed skin.Patient does have an open draining wound on the posterior left thigh which was incised and drained yesterday by her . Patient is on antibiotics. NEURO: Alert and oriented x 4. No focal deficits. Course Vital Signs 03/09/24 03/09/24 03/10/24 22:49 22:57 00:19 Temperature 97.3 F L 97.3 F L Pulse Rate 76 76 Respiratory 18 18 18 Rate Blood Pressure 97/59 97/59 134/65 O2 Sat by Pulse 92 L Oximetry 03/10/24 01:19 Temperature Pulse Rate 76 Respiratory 18 Rate Blood Pressure 106/90 O2 Sat by Pulse 100 Oximetry Medical Decision Making - Medical Decision Making Was pt. sent in by a medical professional or institution (, PA, FLIGHT INFORMATION EXPEDITER, urgent care, hospital, or fdc...) When possible be specific @ -No Did you speak to anyone other than the patient for history (EMS, parent, family, police, friend...)? What history was obtained from this source @ -Patient's who is a former physician assist with patient's past medical history. Did you review nursing and triage notes (agree or disagree)? Why? @ -I reviewed and agree with nursing and triage notes Were old charts reviewed (outside hosp., previous admission, EMS record, old EKG, old radiological studies, urgent care reports/EKG's, fdc records)? Report findings @ -Old charts reviewed looking at prior hemoglobin results however apparently there was a recent hemoglobin in the last 5 weeks that we do not have access to. It was near 9.0 per patient and patient's . Differential Diagnosis (chest pain, altered mental status, abdominal pain women, abdominal pain men, vaginal bleeding, weakness, fever, dyspnea, syncope, headache, dizziness, GI bleed, back pain, seizure, CVA, palpatations, mental health, musculoskeletal)? @ -Differential Weakness: Hypoglycemia, shock, sepsis, hyponatremia, anemia, infection, [place], ETOH, adverse medicine reaction, overdose, stroke, this is not meant to be an all-inclusive list. EKG interpreted by me (3pts min.). @ -As above X-rays interpreted by me (1pt min.). @ -Chest x-ray shows no obvious acute cardiopulmonary process. CT interpreted by me (1pt min.). @ -CTA GI bleed protocol of the abdomen pelvis negative for any obvious acute process. No obvious active GI bleed. U/S interpreted by me (1pt. min.). @ -None done What testing was considered but not performed or refused? (CT, X-rays, U/S, labs)? Why? @ -None What meds were considered but not given or refused? Why? @ -None Did you discuss the management of the patient with other professionals (professionals i.e. DrVeronica, PA, FLIGHT INFORMATION EXPEDITER, lab, RT, psych nurse, long term care social worker, plunger shovel operator, teacher, sba business development officer, major case detective)? Give summary @ -Discussed with on-call surgery, Dr. Fried, who is in agreement with plan for holding Plavix, repeating labs in the morning, as well as observation admission to medicine. Spoke with admitting physician, Dr. Mcwilliams of [facility] who accepted the admission. Was smoking cessation discussed for >3mins.? @ -No Was critical care preformed (if so, how long)? @ -No Were there social determinants of health that impacted care today? How? (Homelessness, low income, unemployed, alcoholism, drug addiction, transportation, low edu. Level, literacy, decrease access to med. care, shelter, rehab)? @ -No Was there de-escalation of care discussed even if they declined (Discuss DNR or withdrawal of care, Hospice)? DNR status @ -No What co-morbidities impacted this encounter? (DM, HTN, Smoking, COPD, CAD, Cancer, CVA, ARF, Chemo, Hep., AIDS, mental health diagnosis, sleep apnea, morbid obesity)? @ -None Was patient admitted / discharged? Hospital course, mention meds given and route, prescriptions, significant lab abnormalities, going to OR and other pertinent info. @ -Patient presents for weakness as well as concern for possible GI bleeding which is chronic dark tarry stools. Clinically appears dehydrated was given a 1 L fluid bolus as well as IV Protonix. Has no other symptoms at this time. Vitals initially had soft blood pressures with systolics in the low 90s however it improved with the 1 L fluid bolus and we will continue on maintenance fluids. Patient was in agreement this plan. Occult blood was positive and gross blood on rectal exam positive for dark tarry stools. Rectal exam performed in the presence of a female staff member. However patient and patient's both state that she has chronic dark black tarry stools. Unknown if this is related to her chronic iron supplementation or possible bleeding. Laboratory studies remarkable for anemia of 8.2. This may be slightly decreased from her previous hemoglobin 1 month ago which was approximately 9.0 per family however we do not have access. Does have a history of having hemoglobin levels in the eights dating back to last January. Urine is pending. Positive occult blood is stated above. Lactic acid within normal limits. Patient does have an PASTORA with an elevated BUN and creatinine of [address] angiogram for GI bleed protocol revealed no obvious active GI bleed. Chest x-ray unremarkable. EKG within acceptable limits. On reevaluation, vital signs remained stable. We discussed workup. I also discussed workup with her . I would like to admit the patient for obser vation and repeat labs in the morning. They were in agreement this plan. I spoke with Dr. Fried, patient's surgeon who was in agreement this plan and accepted the consult. I spoke with the admitting team, [facility] Dr. Mcwilliams who accepted the admission. Undiagnosed new problem with uncertain prognosis? @ -No Drug Therapy requiring intensive monitoring for toxicity (Heparin, Nitro, Insulin, Cardizem)? @ -No Were any procedures done? @ -No Diagnosis/symptom? @ -Dark tarry stool, chronic anemia, PASTORA, weakness Acute, or Chronic, or Acute on Chronic? @ -Acute on chronic Uncomplicated (without systemic symptoms) or Complicated (systemic symptoms)? @ -Complicated Side effects of treatment? @ -No Exacerbation, Progression, or Severe Exacerbation? @ -No Poses a threat to life or bodily function? How? (Chest pain, [place], [place], pneumonia, PE, COPD, DKA, ARF, appy, cholecystitis, CVA, Diverticulitis, Homicidal, Suicidal, threat to staff... and all critical care pts) @ -Potentially, yes - Lab Data Result diagrams: 03/09/24 23:00 03/09/24 23:00 Lab Results 03/09/24 03/09/24 03/09/24 Range/Units 23:00 23:00 23:00 WBC 11.0 H (3.8-10.6) k/uL RBC 2.67 L (3.80-5.40) m/uL Hgb 8.2 L (11.4-16.0) gm/dL Hct 24.7 L (34.0-46.0) % MCV 92.6 (80.0-100.0) fL MCH 30.9 (25.0-35.0) pg MCHC 33.4 (31.0-37.0) g/dL RDW 13.9 (11.5-15.5) % Plt Count 195 (150-450) k/uL MPV 9.3 Neutrophils % 91 % Lymphocytes % 5 % Monocytes % 3 % Eosinophils % 1 % Basophils % 0 % Neutrophils # 10.0 H (1.3-7.7) k/uL Lymphocytes # 0.6 L (1.0-4.8) k/uL Monocytes # 0.3 (0-1.0) k/uL Eosinophils # 0.1 (0-0.7) k/uL Basophils # 0.0 (0-0.2) k/uL PT 10.9 (10.0-12.5) sec INR 1.0 (<1.2) APTT 20.8 L (22.0-30.0) sec Sodium 133 L (137-145) mmol/L Potassium 4.6 (3.5-5.1) mmol/L Chloride 106 (98-107) mmol/L Carbon Dioxide 22 (22-30) mmol/L Anion Gap 5 mmol/L BUN 34 H (7-17) mg/dL Creatinine 1.56 H (0.52-1.04) mg/dL Est GFR (CKD-EPI)AfAm 37 (>60 ml/min/1.73 sqM) Est GFR (CKD-EPI)NonAf 32 (>60 ml/min/1.73 sqM) Glucose 234 H (74-99) mg/dL Plasma Lactic Acid Ramez (0.7-2.0) mmol/L Calcium 9.1 (8.4-10.2) mg/dL Magnesium 2.1 (1.6-2.3) mg/dL Total Bilirubin 0.2 (0.2-1.3) mg/dL AST 20 (14-36) U/L ALT 12 (4-34) U/L Alkaline Phosphatase 67 (38-126) U/L Ammonia (<30) umol/L Total Protein 5.8 L (6.3-8.2) g/dL Albumin 3.2 L (3.5-5.0) g/dL Lipase 94 (23-300) U/L Stool Occult Blood (Negative) Blood Type Blood Type Recheck Bld Type Recheck Status Antibody Screen Spec Expiration Date 03/09/24 03/09/24 03/09/24 Range/Units 23:00 23:00 23:47 WBC (3.8-10.6) k/uL RBC (3.80-5.40) m/uL Hgb (11.4-16.0) gm/dL Hct (34.0-46.0) % MCV (80.0-100.0) fL MCH (25.0-35.0) pg MCHC (31.0-37.0) g/dL RDW (11.5-15.5) % Plt Count (150-450) k/uL MPV Neutrophils % % Lymphocytes % % Monocytes % % Eosinophils % % Basophils % % Neutrophils # (1.3-7.7) k/uL Lymphocytes # (1.0-4.8) k/uL Monocytes # (0-1.0) k/uL Eosinophils # (0-0.7) k/uL Basophils # (0-0.2) k/uL PT (10.0-12.5) sec INR (<1.2) APTT (22.0-30.0) sec Sodium (137-145) mmol/L Potassium (3.5-5.1) mmol/L Chloride (98-107) mmol/L Carbon Dioxide (22-30) mmol/L Anion Gap mmol/L BUN (7-17) mg/dL Creatinine (0.52-1.04) mg/dL Est GFR (CKD-EPI)AfAm (>60 ml/min/1.73 sqM) Est GFR (CKD-EPI)NonAf (>60 ml/min/1.73 sqM) Glucose (74-99) mg/dL Plasma Lactic Acid Ramez 1.9 (0.7-2.0) mmol/L Calcium (8.4-10.2) mg/dL Magnesium (1.6-2.3) mg/dL Total Bilirubin (0.2-1.3) mg/dL AST (14-36) U/L ALT (4-34) U/L Alkaline Phosphatase (38-126) U/L Ammonia <9 (<30) umol/L Total Protein (6.3-8.2) g/dL Albumin (3.5-5.0) g/dL Lipase (23-300) U/L Stool Occult Blood Positive H (Negative) Blood Type AB Positive Blood Type Recheck AB Pos Bld Type Recheck Status No Antibody Screen NEGATIVE Spec Expiration Date 03/12/20242299 - EKG Data -: EKG Interpreted by Me EKG Comments: 12-lead Electrocardiogram Interpretation Note EKG was reviewed and interpreted by myself. 12-lead ECG performed at 0027 is interpreted by me as revealing normal sinus rhythm at a rate of 75 beats per minute. [place] is normal. CT interval is 203 ms, QRS duration is 90 ms, QTc is 413 ms.. There were no ST or T wave abnormalities to suggest myocardial ischemia or injury. R wave progression across the precordium was satisfactory. By my interpretation this EKG is non-diagnostic for acute ischemia. Disposition Clinical Impression: Black tarry stools, PASTORA (acute kidney injury), Chronic anemia, Weakness Disposition: ADMITTED IP TO THIS HOSP Condition: Stable Time of Disposition: 01:50
[2024-03-10] MEDS: SODIUM CHLORIDE 0.9% 1,000 ML IV STA (02:41)
[2024-03-10 03:34] LABS: Appearance,Urine Turbid (Clear); Bacteria,Urine Few /hpf; Bilirubin,Urine Negative (Negative); Blood,Urine Large (Negative); Color,Urine Light Red; Glucose,Urine (UA) Negative (Negative); Hyaline Casts,Urine 11 /lpf (0-2); Ketones,Urine Negative (Negative); Leukocyte Esterase,Urine Small (Negative); Mucus,Urine Rare /hpf; Nitrite,Urine Negative (Negative); Protein,Urine Trace (Negative); RBC,Urine 54 /hpf (0-5); Specific Gravity,Urine 1.044 (1.001-1.035); Squamous Epithelial Cell,Urine 3 /hpf (0-4); Urobilinogen,Urine <2.0 mg/dL (<2.0); WBC,Urine 23 /hpf (0-5)
--- NOTE | 2024-03-10 08:42 | P.GSCN ---
History of Present Illness Consult date: 03/10/24 Reason for Consult: Anemia History of present illness: This is a 78-year-old female well-known myself. Patient was admitted to the hospital with dehydration, acute renal injury and anemia. Patient states she feels better this morning. She denies any abdominal pain. She says she has had melanotic stools for several weeks. Past Medical History Past Medical History: Atrial Fibrillation, Asthma, GERD/Reflux, Hyperlipidemia, Hypertension, Osteoarthritis (OA), Thyroid Disorder Additional Past Medical History / Comment(s): SOB inceased since afib dx in October 2022,recent January 2023 admission for pneumonia-last dose prednisone taper 01-30-23, Insomnia, past migraines,PAST HYPERTENSION , sinus problems at times,HIP DISLOCATION X20, legally blind Lt eye,Covid infection spring 2021 History of Any Multi-Drug Resistant Organisms: None Reported Past Surgical History: Bariatric Surgery, Joint Replacement, Orthopedic Surgery, Tubal Ligation Additional Past Surgical History / Comment(s): 2003 lap band, panniculectomy, R hip ORIF/total arthroplasty, L hip arthroplasty x 2, r knee ACL repair and total right arthroplasty, R thumb sx, D&Cs, EGDs/colonoscopies, R breast benign bx. EGD Past Anesthesia/Blood Transfusion Reactions: No Reported Reaction Past Psychological History: ADD/ADHD, Anxiety, Bipolar, Depression Smoking Status: Former smoker Past Alcohol Use History: Occasional Past Drug Use History: None Reported - Past Family History Mother History Unknown: Yes Family Medical History: Cancer Additional Family Medical History / Comment(s): BLADDER CA- AT 70 YEARS OLD. Father History Unknown: Yes Family Medical History: Coronary Artery Disease (CAD), Myocardial Infarction ([place]) Additional Family Medical History / Comment(s): AT 60 YRS OLD Medications and Allergies Home Medications Medication Instructions Recorded Confirmed Type Albuterol Sulfate [Albuterol 2 puff INHALATION RT-QID PRN 03/12/20 11/14/23 History Sulfate Hfa] Levothyroxine Sodium [Synthroid] 88 mcg PO DAILY@1200 03/12/20 11/14/23 History Montelukast Sodium [Singulair] 10 mg PO HS 03/12/20 11/14/23 History Multivit-Min/Iron/Folic/Lutein 1 tab PO DAILY@119903/12/20 11/14/23 History [Centrum Silver Women Tablet] Alendronate Sodium [Fosamax] 70 mg PO AHMADI 01/23/22 11/14/23 History Folic Acid 0.8 mg PO DAILY@1200 07/15/22 11/14/23 History Apixaban [Eliquis] 5 mg PO BID 01/14/23 11/14/23 History Divalproex Sodium [Depakote] 500 mg PO HS 01/14/23 11/14/23 History L.acidoph,Paracasei, B.lactis 1 cap PO DAILY@1200 01/14/23 11/14/23 History [Probiotic] Pravastatin Sodium [Pravachol] 40 mg PO HS 01/14/23 11/14/23 History QUEtiapine [SEROquel] 50 mg PO DAILY 01/14/23 11/14/23 History lisinopriL [Zestril] 10 mg PO BID 01/14/23 11/14/23 History traZODone HCL [Desyrel] 50 mg PO HS 01/14/23 11/14/23 History Calcium Carbonate [Calcium] 600 mg PO DAILY@1200 08/31/23 11/14/23 History Cetirizine HCl [Zyrtec] 10 mg PO HS 08/31/23 11/14/23 History Metoprolol Succinate [Metoprolol 25 mg PO DAILY 08/31/23 11/14/23 History Succinate ER] Melatonin 10 mg PO HS 11/14/23 11/14/23 History Omeprazole 20 mg PO DAILY 11/14/23 11/14/23 History QUEtiapine FUMARATE 150 mg PO HS 11/14/23 11/14/23 History buPROPion XL [Wellbutrin XL] 150 mg PO DAILY 11/14/23 11/14/23 History Allergies Allergy/AdvReac Type Severity Reaction Status Date / Time buspirone [From BuSpar] AdvReac Insomnia Verified 11/14/23 18:15 fluticasone furoate AdvReac HTN Verified 11/14/23 18:15 [From Trelegy Ellipta] lurasidone [From Latuda] AdvReac Parkinson Verified 11/14/23 18:15 Symptoms Opioids - Morphine Analogues AdvReac AGITATION Verified 11/14/23 18:15 Opioids-Meperidine and AdvReac AGITATION Verified 11/14/23 18:15 Related spironolactone AdvReac ANXIETY Verified 11/14/23 18:15 [From Aldactone] AND DEPRESSION umeclidinium AdvReac HTN Verified 11/14/23 18:15 [From Trelegy Ellipta] vilanterol AdvReac HTN Verified 11/14/23 18:15 [From Trelegy Ellipta] OPIATES AdvReac Unknown AGITATION Uncoded 01/30/23 13:38 Surgical - Exam Vital Signs Temp Pulse Resp BP 97.3 F L 76 18 97/59 03/09/24 22:49 03/09/24 22:49 03/09/24 22:49 03/09/24 22:49 - General well developed, well nourished, no distress - Eyes PERRL - ENT normal pinna, normal nares - Neck no masses - Respiratory normal expansion - Cardiovascular Rhythm: regular - Abdomen Abdomen: soft, non tender Results - Labs 03/09/24 23:00 03/09/24 23:00 Abnormal Lab Results - Last 24 Hours (Table) 03/09/24 03/09/24 03/09/24 Range/Units 23:00 23:00 23:00 WBC 11.0 H (3.8-10.6) k/uL RBC 2.67 L (3.80-5.40) m/uL Hgb 8.2 L (11.4-16.0) gm/dL Hct 24.7 L (34.0-46.0) % Neutrophils # 10.0 H (1.3-7.7) k/uL Lymphocytes # 0.6 L (1.0-4.8) k/uL APTT 20.8 L (22.0-30.0) sec Sodium 133 L (137-145) mmol/L BUN 34 H (7-17) mg/dL Creatinine 1.56 H (0.52-1.04) mg/dL Glucose 234 H (74-99) mg/dL Total Protein 5.8 L (6.3-8.2) g/dL Albumin 3.2 L (3.5-5.0) g/dL Urine Appearance (Clear) Ur Specific [place] (1.001-1.035) Urine Protein (Negative) Urine Blood (Negative) Ur Leukocyte Esterase (Negative) Urine RBC (0-5) /hpf Urine WBC (0-5) /hpf Urine Bacteria (None) /hpf Hyaline Casts (0-2) /lpf Urine Mucus (None) /hpf Stool Occult Blood (Negative) 03/09/24 03/10/24 Range/Units 23:00 03:01 WBC (3.8-10.6) k/uL RBC (3.80-5.40) m/uL Hgb (11.4-16.0) gm/dL Hct (34.0-46.0) % Neutrophils # (1.3-7.7) k/uL Lymphocytes # (1.0-4.8) k/uL APTT (22.0-30.0) sec Sodium (137-145) mmol/L BUN (7-17) mg/dL Creatinine (0.52-1.04) mg/dL Glucose (74-99) mg/dL Total Protein (6.3-8.2) g/dL Albumin (3.5-5.0) g/dL Urine Appearance Turbid H (Clear) Ur Specific [place] 1.044 H (1.001-1.035) Urine Protein Trace H (Negative) Urine Blood Large H (Negative) Ur Leukocyte Esterase Small H (Negative) Urine RBC 54 H (0-5) /hpf Urine WBC 23 H (0-5) /hpf Urine Bacteria Few H (None) /hpf Hyaline Casts 11 H (0-2) /lpf Urine Mucus Rare H (None) /hpf Stool Occult Blood Positive H (Negative) Diabetes panel 03/09/24 Range/Units 23:00 Sodium 133 L (137-145) mmol/L Potassium 4.6 (3.5-5.1) mmol/L Chloride 106 (98-107) mmol/L Carbon Dioxide 22 (22-30) mmol/L BUN 34 H (7-17) mg/dL Creatinine 1.56 H (0.52-1.04) mg/dL Glucose 234 H (74-99) mg/dL Calcium 9.1 (8.4-10.2) mg/dL AST 20 (14-36) U/L ALT 12 (4-34) U/L Alkaline Phosphatase 67 (38-126) U/L Total Protein 5.8 L (6.3-8.2) g/dL Albumin 3.2 L (3.5-5.0) g/dL Calcium panel 03/09/24 Range/Units 23:00 Calcium 9.1 (8.4-10.2) mg/dL Albumin 3.2 L (3.5-5.0) g/dL Pituitary panel 03/09/24 Range/Units 23:00 Sodium 133 L (137-145) mmol/L Potassium 4.6 (3.5-5.1) mmol/L Chloride 106 (98-107) mmol/L Carbon Dioxide 22 (22-30) mmol/L BUN 34 H (7-17) mg/dL Creatinine 1.56 H (0.52-1.04) mg/dL Glucose 234 H (74-99) mg/dL Calcium 9.1 (8.4-10.2) mg/dL Adrenal panel 03/09/24 Range/Units 23:00 Sodium 133 L (137-145) mmol/L Potassium 4.6 (3.5-5.1) mmol/L Chloride 106 (98-107) mmol/L Carbon Dioxide 22 (22-30) mmol/L BUN 34 H (7-17) mg/dL Creatinine 1.56 H (0.52-1.04) mg/dL Glucose 234 H (74-99) mg/dL Calcium 9.1 (8.4-10.2) mg/dL Total Bilirubin 0.2 (0.2-1.3) mg/dL AST 20 (14-36) U/L ALT 12 (4-34) U/L Alkaline Phosphatase 67 (38-126) U/L Total Protein 5.8 L (6.3-8.2) g/dL Albumin 3.2 L (3.5-5.0) g/dL Assessment and Plan Assessment: Anemia. Patient will undergo upper and lower endoscopy when stable.
[2024-03-10] MEDS: PANTOPRAZOLE 40 MG/10 ML VIAL IV SCH (09:08)
[2024-03-10] MEDS: ACETAMINOPHEN TAB 325 MG TAB PO PRN (15:40)
--- NOTE | 2024-03-10 17:47 | P.HPIM ---
History of Present Illness H&P Date: 03/10/24 Patient is a 78-year-old female with A-fib on aspirin and Plavix, hypertension, asthma, GERD, and chronic weakness presented to the emergency department for 1 day of severe diarrhea and weakness. Collateral obtained from . Yesterday she had an episode of very dark diarrhea and when he tried to get her cleaned up in the shower, she "slumped down" due to weakness but did not lose consciousness. He called EMS to help pick her up and decided to bring her to the ED due to the weakness. He has noticed only 1 other episode of melena about 1 week ago. She has had weakness for a long time but has been worsening since the spring 2023 when she was hospitalized for ischemic colitis. He notes that in March 2023 she had an ablation for her A-fib; she was then placed on Eliquis, aspirin, and Plavix. About a month ago she had a Watchman device placed and at that time Eliquis was stopped. She denies chest pain, abdominal pain, nausea, vomiting, hematochezia, dysuria, hematuria. Chest x-ray noncontributory. CT angio abdomen and pelvis shows no source of active GI hemorrhage. WBCs 11.0, hemoglobin 8.2, hematocrit 24.7, PTT 20.8, sodium 133, BUN 34, creatinine 1.56, total protein 5.8, albumin 3.2. Urinalysis shows: Trace protein, blood, RBCs 54, WBCs 23, hyaline casts. Stool occult blood positive. BP [id number]. ED documentation reviewed. Review of systems: Pertinent positives and negatives as discussed in HPI, a complete review of systems was performed and all other systems are negative. Family history: Motherbladder cancer, fathercoronary artery disease, myocardial infarction. 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 Physical examination: Vital signs reviewed General: non toxic, no distress, appears at stated age, normal weight Derm: has an abscess that was lanced by physician the other day at home and resumed on Keflex on posterior left leg covered by dressing; no unusual rashes/lesions, warm Head: atraumatic, normocephalic, symmetric Eyes: EOMI, no lid lag, anicteric sclera, pupils equal round reactive to light ENT: nose and ears atraumatic Neck: no cervical lymphadenopathy, trachea midline, supple Mouth: no lip lesion, mucus membranes moist Cardiovascular: S1S2, regular rate and rhythm, no murmur Lungs: CTA bilateral, no rhonchi, no rales, no accessory muscle use Abdominal: soft, nontender to palpation, no guarding Ext: positive dorsalis pedis pulse bilateral, no edema Neuro: CN II-XI grossly intact, no gross focal neuro deficits Psych: alert, oriented, appropriate affect and mood Assessment/Plan: #. Melena. Continue to hold Plavix per surgery. Obtain upper and lower endoscopy per surgery. #. Weakness. #. Chronic anemia. #. Left posterior leg wound. Abscess that was lanced by physician the other day at home and resumed on Keflex. DVT prophylaxis: [] Chronic conditions: A-fib maintained on clopidegrel Watchman placed, eliquis stopped this and only aspirin and Plavix continued, iron deficiency anemia, HTN hypothyroidism, mild asthma, depression-bipolar with shekhar, GERD, HLD, osteo arthritis The patient is admitted with an anticipated more than 2 midnight stay for evaluation of melena and weakness. CODE STATUS: Full code Discussed with: Patient and her . Anticipated discharge place: Home. Attestation: I have personally seen and examined the patient with Resident, rev iewed the documentation and participated and agree with the assessment and plan as written. Past Medical History Past Medical History: Atrial Fibrillation, Asthma, GERD/Reflux, Hyperlipidemia, Hypertension, Osteoarthritis (OA), Thyroid Disorder Additional Past Medical History / Comment(s): SOB inceased since afib dx in October 2022,recent January 2023 admission for pneumonia-last dose prednisone taper 01-30-23, Insomnia, past migraines,PAST HYPERTENSION , sinus problems at times,HIP DISLOCATION X20, legally blind Lt eye,Covid infection spring 2021 History of Any Multi-Drug Resistant Organisms: None Reported Past Surgical History: Bariatric Surgery, Joint Replacement, Orthopedic Surgery, Tubal Ligation Additional Past Surgical History / Comment(s): 2003 lap band, panniculectomy, R hip ORIF/total arthroplasty, L hip arthroplasty x 2, r knee ACL repair and total right arthroplasty, R thumb sx, D&Cs, EGDs/colonoscopies, R breast benign bx. EGD Past Anesthesia/Blood Transfusion Reactions: No Reported Reaction Past Psychological History: ADD/ADHD, Anxiety, Bipolar, Depression Additional Psychological History / Comment(s): PANIC ATTACK ,ADD, previously undergone ECT treatments at [facility] for severe depression Smoking Status: Former smoker Past Alcohol Use History: Occasional Additional Past Alcohol Use History / Comment(s): QUIT SMOKING 1988 STARTED SMOKING AT AGE 17. SMOKED 1PPD. Past Drug Use History: None Reported - Past Family History Mother History Unknown: Yes Family Medical History: Cancer Additional Family Medical History / Comment(s): BLADDER CA- AT 70 YEARS OLD. Father History Unknown: Yes Family Medical History: Coronary Artery Disease (CAD), Myocardial Infarction ([place]) Additional Family Medical History / Comment(s): AT 60 YRS OLD Medications and Allergies Home Medications Medication Instructions Recorded Confirmed Type Albuterol Sulfate [Albuterol 2 puff INHALATION RT-QID PRN 03/12/20 03/10/24 History Sulfate Hfa] Levothyroxine Sodium [Synthroid] 88 mcg PO DAILY@1200 03/12/20 03/10/24 History Montelukast Sodium [Singulair] 10 mg PO 03/12/20 03/10/24 History Multivit-Min/Iron/Folic/Lutein 1 tab PO DAILY@1200 03/12/20 03/10/24 History [Centrum Silver Women Tablet] Alendronate Sodium [Fosamax] 70 mg PO 01/23/22 03/10/24 History Folic Acid 0.8 mg PO DAILY@1200 07/15/22 03/10/24 History Divalproex Sodium [Depakote] 500 mg PO 01/14/23 03/10/24 History L.acidoph,Paracasei, B.lactis 1 cap PO DAILY@1200 01/14/23 03/10/24 History [Probiotic] Pravastatin Sodium [Pravachol] 40 mg PO 01/14/23 03/10/24 History lisinopriL [Zestril] 10 mg PO BID 01/14/23 03/10/24 History traZODone HCL [Desyrel] 50 mg PO HS 01/14/23 03/10/24 History Calcium Carbonate [Calcium] 600 mg PO DAILY@1200 08/31/23 03/10/24 History Cetirizine HCl [Zyrtec] 10 mg PO 08/31/23 03/10/24 History Metoprolol Succinate [Metoprolol 25 mg PO DAILY 08/31/23 03/10/24 History Succinate ER] Melatonin 10 mg PO HS 11/14/23 03/10/24 History Omeprazole 20 mg PO BID 11/14/23 03/10/24 History buPROPion XL [Wellbutrin XL] 150 mg PO DAILY 11/14/23 03/10/24 History Aspirin EC [Ecotrin Low Dose] 81 mg PO DAILY 03/10/24 03/10/24 History Cephalexin [Keflex] 500 mg PO Q8HR 03/10/24 03/10/24 History Clopidogrel [Plavix] 75 mg PO DAILY 03/10/24 03/10/24 History Ferrous Sulfate [Feosol] 325 mg PO HS 03/10/24 03/10/24 History QUEtiapine [SEROquel] 200 mg PO HS 03/10/24 03/10/24 History Allergies Allergy/AdvReac Type Severity Reaction Status Date / Time buspirone [From BuSpar] AdvReac Insomnia Verified 03/10/24 11:22 fluticasone furoate AdvReac HTN Verified 03/10/24 11:22 [From Trelegy Ellipta] lurasidone [From Latuda] AdvReac Parkinson Verified 03/10/24 11:22 Symptoms Opioids - Morphine Analogues AdvReac AGITATION Verified 03/10/24 11:22 Opioids-Meperidine and AdvReac AGITATION Verified 03/10/24 11:22 Related spironolactone AdvReac ANXIETY Verified 03/10/24 11:22 [From Aldactone] AND DEPRESSION umeclidinium AdvReac HTN Verified 03/10/24 11:22 [From Trelegy Ellipta] vilanterol AdvReac HTN Verified 03/10/24 11:22 [From Trelegy Ellipta] OPIATES AdvReac Unknown AGITATION Uncoded 01/30/23 13:38 Physical Exam Vitals: Vital Signs Temp Pulse Pulse Resp BP BP Pulse Ox 03/10/24 08:33 65 18 110/73 97 03/10/24 08:28 97.8 F 71 18 131/73 96 03/10/24 07:05 64 18 112/70 95 03/10/24 06:23 64 18 114/60 96 03/10/24 04:47 66 18 87/57 97 03/10/24 03:29 73 18 106/63 99 03/10/24 01:19 76 18 106/90 100 03/10/24 00:19 18 134/65 03/09/24 22:57 97.3 F L 76 18 97/59 92 L 03/09/24 22:49 97.3 F L 76 18 97/59 Intake and Output 03/09/24 03/10/24 03/10/24 22:59 06:59 14:59 Other: # Voids 1 Weight 53.07 kg 53.07 kg Results CBC & Chem 7: 03/11/24 05:59 03/09/24 23:00 Labs: Abnormal Lab Results - Last 24 Hours (Table) 03/09/24 03/09/24 03/09/24 Range/Units 23:00 23:00 23:00 WBC 11.0 H (3.8-10.6) k/uL RBC 2.67 L (3.80-5.40) m/uL Hgb 8.2 L (11.4-16.0) gm/dL Hct 24.7 L (34.0-46.0) % Neutrophils # 10.0 H (1.3-7.7) k/uL Lymphocytes # 0.6 L (1.0-4.8) k/uL APTT 20.8 L (22.0-30.0) sec Sodium 133 L (137-145) mmol/L BUN 34 H (7-17) mg/dL Creatinine 1.56 H (0.52-1.04) mg/dL Glucose 234 H (74-99) mg/dL Total Protein 5.8 L (6.3-8.2) g/dL Albumin 3.2 L (3.5-5.0) g/dL Urine Appearance (Clear) Ur Specific Otis (1.001-1.035) Urine Protein (Negative) Urine Blood (Negative) Ur Leukocyte Esterase (Negative) Urine RBC (0-5) /hpf Urine WBC (0-5) /hpf Urine Bacteria (None) /hpf Hyaline Casts (0-2) /lpf Urine Mucus (None) /hpf Stool Occult Blood (Negative) 03/09/24 03/10/24 Range/Units 23:00 03:01 WBC (3.8-10.6) k/uL RBC (3.80-5.40) m/uL Hgb (11.4-16.0) gm/dL Hct (34.0-46.0) % Neutrophils # (1.3-7.7) k/uL Lymphocytes # (1.0-4.8) k/uL APTT (22.0-30.0) sec Sodium (137-145) mmol/L BUN (7-17) mg/dL Creatinine (0.52-1.04) mg/dL Glucose (74-99) mg/dL Total Protein (6.3-8.2) g/dL Albumin (3.5-5.0) g/dL Urine Appearance Turbid H (Clear) Ur Specific Otis 1.044 H (1.001-1.035) Urine Protein Trace H (Negative) Urine Blood Large H (Negative) Ur Leukocyte Esterase Small H (Negative) Urine RBC 54 H (0-5) /hpf Urine WBC 23 H (0-5) /hpf Urine Bacteria Few H (None) /hpf Hyaline Casts 11 H (0-2) /lpf Urine Mucus Rare H (None) /hpf Stool Occult Blood Positive H (Negative) Thrombosis Risk Factor Assmnt - Choose All That Apply Each Risk Factor Represents 3 Points: Age 75 years or older Thrombosis Risk Factor Assessment Total Risk Factor Score: 3 Thrombosis Risk Factor Assessment Level: Moderate Risk
[2024-03-10] MEDS ORDERED: NON FORMULARY DRUG (Omeprazole [Omeprazole] 20 MG Capsule.Dr) PO SCH (21:00)
[2024-03-10] MEDS: PRAVASTATIN SODIUM 40 MG TAB PO SCH (21:42)
[2024-03-10] MEDS: MELATONIN 5 MG TABLET PO SCH (21:42)
[2024-03-10] MEDS: traZODone HCL 50 MG TAB PO SCH (21:42)
[2024-03-10] MEDS: LORATADINE 10 MG TAB PO SCH (21:42)
[2024-03-10] MEDS: MONTELUKAST 10 MG TAB PO SCH (21:42)
[2024-03-10] MEDS: QUEtiapine 200 MG TAB PO SCH (21:42)
[2024-03-10] MEDS: FERROUS SULFATE 325 MG TAB PO SCH (21:42)
[2024-03-10] MEDS: DIVALPROEX 500 MG TABLET.DR PO SCH (21:43)
[2024-03-11] MEDS: CEPHALEXIN 500 MG CAP PO SCH (00:12)
[2024-03-11] MEDS: buPROPion XL 150 MG TAB.ER.24H PO SCH (08:10)
[2024-03-11 09:42] LABS: Basophils # (A) 0.01 X 10*3/uL (0.00-0.10); Basophils % (A) 0.2 %; Eosinophils # (A) 0.35 X 10*3/uL (0.04-0.35); Eosinophils % (A) 7.9 %; HCT 22.1 % (37.2-46.3); HGB 6.7 g/dL (12.0-15.0); Lymphocytes % (A) 31.5 %; MCH 29.3 pg (27.0-32.0); MCHC 30.3 g/dL (32.0-37.0); MCV 96.5 FL (80.0-97.0); Mean Platelet Volume 11.6 FL (9.5-12.2); Monocytes # (A) 0.33 X 10*3/uL (0.20-1.00); Monocytes % (A) 7.4 %; NRBC Per 100 WBC 0 X 10*3/uL (0.00-0.01); Neutrophils # (A) 2.33 X 10*3/uL (1.80-7.70); Neutrophils % (A) 52.3 %; Platelet Count 151 X 10*3/uL (140-440); RBC 2.29 X 10*6/uL (4.10-5.20); RBC Morphology Normal (Normal); RDW 13.7 % (11.5-14.5); WBC 4.45 X 10*3/uL (4.50-10.00)
[2024-03-11 10:24] LABS: ALT 11 U/L (8-44); AST 18 U/L (13-35); Albumin 2.9 g/dL (3.8-4.9); Albumin/Globulin Ratio 1.45 Ratio (1.60-3.17); Alkaline Phosphatase 52 U/L (41-126); BUN/Creat Ratio 22.88 Ratio (12.00-20.00); Blood Urea Nitrogen 18.3 mg/dL (9.0-27.0); Calcium 8.3 mg/dL (8.7-10.3); Carbon Dioxide 21.4 mmol/L (21.6-31.8); Chloride 108 mmol/L (96-109); Glucose 80 mg/dL (70-110); Potassium 4.3 mmol/L (3.5-5.5); Sodium 137 mmol/L (135-145); Total Bilirubin <0.2 mg/dL (0.3-1.2); Total Protein 4.9 g/dL (6.2-8.2)
[2024-03-11] MEDS: PANTOPRAZOLE 40 MG/10 ML VIAL IV SCH (11:08)
[2024-03-11] MEDS: MULTIVITAMINS, THERA 1 EACH TAB PO SCH (11:45)
[2024-03-11] MEDS: DOXYCYCLINE 100 MG in SODIUM CHLORIDE 0.9% 100 ML IVPB SCH (11:45)
[2024-03-11] MEDS: LEVOTHYROXINE 88 MCG TAB PO SCH (11:45)
[2024-03-11] MEDS: CALCIUM CARBONATE 500 MG CHEWABLE PO SCH (11:45)
[2024-03-11] MEDS: LACTOBACILLUS ACIDOPHILUS/PECT 1 EACH CAPSULE PO SCH (11:45)
[2024-03-11] MEDS: FOLIC ACID 1 MG TAB PO SCH (11:45)
[2024-03-11 11:47] LABS: HCT 24.3 % (34.0-46.0); HGB 7.7 gm/dL (11.4-16.0); Hypochromasia Moderate; MCH 29.7 pg (25.0-35.0); MCHC 31.6 g/dL (31.0-37.0); Mean Platelet Volume 8.4; Platelet Count 179 k/uL (150-450); RBC 2.59 m/uL (3.80-5.40); RDW 13.9 % (11.5-15.5); WBC 5.1 k/uL (3.8-10.6)
--- NOTE | 2024-03-11 12:28 | P.CRDCN ---
History of Present Illness Consult date: 03/11/24 Reason for Consult (text): - . HPI: 78-year-old lady with a history of bronchial asthma multiple orthopedic surgeries with prior hip surgery knee surgery peripheral neuropathy hypertension hyperlipidemia depression requiring electroconvulsive therapy in the past at [facility]. She also has paroxysmal atrial fibrillation and had issues with GI bleed. I was asked to see her because of a hemoglobin of 6.7 and she is stopped Eliquis 5 mg twice daily about a week ago but she has been on aspirin and Plavix since then. On December 10 at [facility] she had a Watchman procedure performed and continued Eliquis until a week ago. Hemoglobin is 6.7. Her main complaint was that she was feeling weak with low energy lack of strength and also feeling exhausted. She did not have any specific chest pain palpitations. She is maintaining sinus rhythm. Hemoglobin was 6.7 early this morning a repeat 1 at 11 AM today was 7.7. There is no active bleeding but she did have black tarry stool in the past few days.. RELEVANT PAST MEDICAL HISTORY: Remarkable for paroxysmal atrial fibrillation with a pulmonary vein isolation procedure performed sometime in December maintaining sinus rhythm. Also had a Watchman procedure on December 11, 2023 History of multiple orthopedic problems. Previous lap band surgery. Hypertension hyperlipidemia depression and previous episodes of syncope. She does have bronchial asthma as well.. MEDICATIONS: Aspirin and Plavix. Eliquis was stopped a week ago, pravastatin metoprolol succinate 25 mg daily Synthroid 88 mcg daily aspirin 81 mg daily lisinopril 10 mg twice daily iron supplements trazodone and melatonin. ALLERGIES: Multiple medications please see the chart. REVIEW OF SYSTEMS: Remarkable for black tarry stools and generalized fatigue lack of energy and weakness. No palpitations chest pain or shortness of breath at rest.. PHYSICIAL EXAM: Vital signs are stable there is no JVD or carotid bruit S1-S2 heard normally short systolic murmur at the base rhythm is regular lungs reveal bilateral decent air entry abdomen is soft and nontender lower extremities reveal diminished pulses Central nervous system grossly no focal deficits. There are some joint deformities noted. IMPRESSION: 1. GI bleed probably chronic and could be related to Eliquis Plavix and aspirin. Patient's last hemoglobin in November was 11.0 and now it is 6.7 and repeat 1 was 7.0.. 2. Paroxysmal atrial fibrillation s/p pulmonary vein isolation and Watchman procedure placed on December 11, 2023. 3. Benign hypertension. 4. Hypercholesterolemia. 5. Asthma 6. Multiple orthopedic problems. RECOMMENDATIONS: I saw the patient and discussed with her and her Dr. Aashish Bardales. There is some reluctance for blood transfusion which is under standable. We discussed endoscopy but I do not believe it would change the management at this time. I am recommending that we follow hemoglobin this evening and tomorrow morning if it stabilizes we will continue oral iron supplements but no blood transfusion. However if hemoglobin falls below 7.0 we will then transfuse her. This is agreeable to the patient and her . I will obtain an echocardiogram to assess LV function and limited study. Discussed my thoughts in detail with the patient. Past Medical History Past Medical History: Atrial Fibrillation, Asthma, GERD/Reflux, Hyperlipidemia, Hypertension, Osteoarthritis (OA), Thyroid Disorder Additional Past Medical History / Comment(s): SOB inceased since afib dx in [place] pril 2022,recent January 2023 admission for pneumonia-last dose prednisone taper 01-30-23, Insomnia, past migraines,PAST HYPERTENSION , sinus problems at times,HIP DISLOCATION X20, legally blind Lt eye,Covid infection spring 2021 History of Any Multi-Drug Resistant Organisms: None Reported Past Surgical History: Bariatric Surgery, Joint Replacement, Orthopedic Surgery, Tubal Ligation Additional Past Surgical History / Comment(s): 2004 lap band, panniculectomy, R hip ORIF/total arthroplasty, L hip arthroplasty x 2, r knee ACL repair and total right arthroplasty, R thumb sx, D&Cs, EGDs/colonoscopies, R breast benign bx. EGD Past Anesthesia/Blood Transfusion Reactions: No Reported Reaction Past Psychological History: ADD/ADHD, Anxiety, Bipolar, Depression Additional Psychological History / Comment(s): PANIC ATTACK ,ADD, previously undergone ECT treatments at [facility] for severe depression Smoking Status: Former smoker Past Alcohol Use History: Occasional Additional Past Alcohol Use History / Comment(s): QUIT SMOKING 1987 STARTED SMOKING AT AGE 17. SMOKED 1PPD. Past Drug Use History: None Reported - Past Family History Mother History Unknown: Yes Family Medical History: Cancer Additional Family Medical History / Comment(s): BLADDER CA- AT 70 YEARS OLD. Father History Unknown: Yes Family Medical History: Coronary Artery Disease (CAD), Myocardial Infarction ([place]) Additional Family Medical History / Comment(s): AT 60 YRS OLD Medications and Allergies Home Medications Medication Instructions Recorded Confirmed Type Albuterol Sulfate [Albuterol 2 puff INHALATION RT-QID PRN 03/12/20 03/10/24 History Sulfate Hfa] Levothyroxine Sodium [Synthroid] 88 mcg PO DAILY@1200 03/12/20 03/10/24 History Montelukast Sodium [Singulair] 10 mg PO HS 03/12/20 03/10/24 History Multivit-Min/Iron/Folic/Lutein 1 tab PO DAILY@1200 03/12/20 03/10/24 History [Centrum Silver Women Tablet] Alendronate Sodium [Fosamax] 70 mg PO 01/23/22 03/10/24 History Folic Acid 0.8 mg PO DAILY@1200 07/15/22 03/10/24 History Divalproex Sodium [Depakote] 500 mg PO HS 01/14/23 03/10/24 History L.acidoph,Paracasei, B.lactis 1 cap PO DAILY@1200 01/14/23 03/10/24 History [Probiotic] Pravastatin Sodium [Pravachol] 40 mg PO HS 01/14/23 03/10/24 History lisinopriL [Zestril] 10 mg PO BID 01/14/23 03/10/24 History traZODone HCL [Desyrel] 50 mg PO HS 01/14/23 03/10/24 History Calcium Carbonate [Calcium] 600 mg PO DAILY@1200 08/31/23 03/10/24 History Cetirizine HCl [Zyrtec] 10 mg PO HS 08/31/23 03/10/24 History Metoprolol Succinate [Metoprolol 25 mg PO DAILY 08/31/23 03/10/24 History Succinate ER] Melatonin 10 mg PO HS 11/14/23 03/10/24 History Omeprazole 20 mg PO BID 11/14/23 03/10/24 History buPROPion XL [Wellbutrin XL] 150 mg PO DAILY 11/14/23 03/10/24 History Aspirin EC [Ecotrin Low Dose] 81 mg PO DAILY 03/10/24 03/10/24 History Cephalexin [Keflex] 500 mg PO Q8HR 03/10/24 03/10/24 History Clopidogrel [Plavix] 75 mg PO DAILY 03/10/24 03/10/24 History Ferrous Sulfate [Feosol] 325 mg PO HS 03/10/24 03/10/24 History QUEtiapine [SEROquel] 200 mg PO HS 03/10/24 03/10/24 History Allergies Allergy/AdvReac Type Severity Reaction Status Date / Time buspirone [From BuSpar] AdvReac Insomnia Verified 03/10/24 11:22 fluticasone furoate AdvReac HTN Verified 03/10/24 11:22 [From Trelegy Ellipta] lurasidone [From Latuda] AdvReac Parkinson Verified 03/10/24 11:22 Symptoms Opioids - Morphine Analogues AdvReac AGITATION Verified 03/10/24 11:22 Opioids-Meperidine and AdvReac AGITATION Verified 03/10/24 11:22 Related spironolactone AdvReac ANXIETY Verified 03/10/24 11:22 [From Aldactone] AND DEPRESSION umeclidinium AdvReac HTN Verified 03/10/24 11:22 [From Trelegy Ellipta] vilanterol AdvReac HTN Verified 03/10/24 11:22 [From Trelegy Ellipta] OPIATES AdvReac Unknown AGITATION Uncoded 01/30/23 13:38 Physical Exam Vitals: Vital Signs Temp Pulse Resp BP Pulse Ox 03/11/24 07:53 97.9 F 74 16 144/77 96 03/11/24 01:09 97.4 F L 71 16 112/64 95 03/10/24 19:10 98.7 F 67 16 105/66 94 L 03/10/24 13:37 98.7 F 75 16 107/68 95 Intake and Output 03/10/24 03/11/24 03/11/24 22:59 06:59 14:59 Intake Total 762 Output Total 50 250 Balance 712 -250 Intake: Oral 762 Output: Urine 50 250 Other: Voiding Method Bedside Commode Bedside Commode External Catheter External Catheter Results 03/11/24 11:29 03/11/24 05:59 Cardiac Enzymes 03/11/24 Range/Units 05:59 AST 18 (13-35) U/L CBC 03/11/24 03/11/24 Range/Units 05:59 11:29 WBC 4.45 L 5.1 (4.50-10.00) X 10*3/uL RBC 2.29 L 2.59 L (4.10-5.20) X 10*6/uL Hgb 6.7 A* 7.7 L (12.0-15.0) g/dL Hct 22.1 L 24.3 L (37.2-46.3) % Plt Count 151 179 (140-440) X 10*3/uL Comprehensive Metabolic Panel 03/11/24 Range/Units 05:59 Sodium 137 (135-145) mmol/L Potassium 4.3 (3.5-5.5) mmol/L Chloride 108 (96-109) mmol/L Carbon Dioxide 21.4 L (21.6-31.8) mmol/L BUN 18.3 (9.0-27.0) mg/dL Creatinine 0.8 (0.6-1.5) mg/dL Glucose 80 (70-110) mg/dL Calcium 8.3 L (8.7-10.3) mg/dL AST 18 (13-35) U/L ALT 11 (8-44) U/L Alkaline Phosphatase 52 (41-126) U/L Total Protein 4.9 L (6.2-8.2) g/dL Albumin 2.9 L (3.8-4.9) g/dL Current Medications Generic Name Dose Route Start Last Admin Trade Name Freq PRN Reason Stop Dose Admin Acetaminophen 650 mg 03/10/24 01:51 03/10/24 21:43 Acetaminophen Tab 325 Mg Tab PO 650 mg Q6HR PRN Administration Mild Pain or Fever > 100.5 Bupropion HCl 150 mg 03/11/24 09:00 03/11/24 08:10 Bupropion Xl 150 Mg Tab.Er.24h PO 150 mg DAILY SANTINO Administration Calcium Carbonate/Glycine 500 mg 03/11/24 12:00 03/11/24 11:45 Calcium Carbonate 500 Mg Chewable PO 500 mg DAILY@1200 SANTINO Administration Cephalexin 500 mg 03/11/24 00:00 03/11/24 08:10 Cephalexin 500 Mg Cap PO 03/15/24 23:00 500 mg Q8HR SANTINO Administration Protocol Divalproex Sodium 500 mg 03/10/24 21:00 03/10/24 21:43 Divalproex 500 Mg Tablet.Dr PO 500 mg HS SANTINO Administration Enoxaparin Sodium 40 mg 03/12/24 09:00 Enoxaparin 40 Mg/0.4 Ml Syringe SQ DAILY SANTINO Folic Acid 1 mg 03/11/24 12:00 03/11/24 11:45 Folic Acid 1 Mg Tab PO 1 mg DAILY@1200 SANTINO Administration Doxycycline Hyclate 100 mg/ 100 mls @ 100 mls/hr 03/11/24 10:30 03/11/24 11:45 Sodium Chloride IVPB 100 mls/hr Q12HR SANTINO Administration Protocol Lactobacillus Acidophilus 1 each 03/11/24 12:00 03/11/24 11:45 Lactobacillus Acidophilus/Pect 1 Each Capsule PO 1 each DAILY@1200 SANTINO Administration Levothyroxine Sodium 88 mcg 03/11/24 12:00 03/11/24 11:45 Levothyroxine 88 Mcg Tab PO 88 mcg DAILY@1200 SANTINO Administration Loratadine 10 mg 03/10/24 21:00 03/10/24 21:42 Loratadine 10 Mg Tab PO 10 mg HS SANTINO Administration Melatonin 10 mg 03/10/24 21:00 03/10/24 21:42 Melatonin 5 Mg Tablet PO 10 mg HS SANTINO Administration Montelukast Sodium 10 mg 03/10/24 21:00 03/10/24 21:42 Montelukast 10 Mg Tab PO 10 mg HS SANTINO Administration Multivitamins 1 each 03/11/24 12:00 03/11/24 11:45 Multivitamins, Thera 1 Each Tab PO 1 each DAILY@1200 SANTINO Administration Naloxone HCl 0.2 mg 03/10/24 01:51 Naloxone 0.4 Mg/Ml 1 Ml Vial IV Q2M PRN Opioid Reversal Pantoprazole Sodium 40 mg 03/11/24 10:15 03/11/24 11:08 Pantoprazole 40 Mg/10 Ml Vial IV Not Given BID SANTINO Pravastatin Sodium 40 mg 03/10/24 21:00 03/10/24 21:42 Pravastatin Sodium 40 Mg Tab PO 40 mg HS SANTINO Administration Quetiapine Fumarate 200 mg 03/10/24 21:00 03/10/24 21:42 Quetiapine 200 Mg Tab PO 200 mg HS SANTINO Administration Trazodone HCl 50 mg 03/10/24 21:00 03/10/24 21:42 Trazodone Hcl 50 Mg Tab PO 50 mg HS SANTINO Administration Intake and Output 03/10/24 03/11/24 03/11/24 22:59 06:59 14:59 Intake Total 762 Output Total 50 250 Balance 712 -250 Intake: Oral 762 Output: Urine 50 250 Other: Voiding Method Bedside Commode Bedside Commode External Catheter External Catheter 03/11/24 11:29 03/11/24 05:59
--- NOTE | 2024-03-11 13:53 | P.PN ---
Subjective Progress Note Date: 03/11/24 patient feels slightly better. She still has some melanotic stools. Her last hemoglobin 7.7. On exam vital signs appear stable. Abdomen soft. Patient will be scheduled for EGD colonoscopy on . Objective - Vital Signs Vital signs: Vital Signs Temp 99.1 F 03/11/24 12:17 Pulse 74 03/11/24 12:17 Resp 16 03/11/24 12:17 BP 153/80 03/11/24 12:17 Pulse Ox 99 03/11/24 12:17 FiO2 Intake & Output 03/10/24 03/11/24 03/11/24 18:59 06:59 18:59 Intake Total 1524 Output Total 50 250 1000 Balance 1474 -250 -1000 Weight 53.07 kg Intake: Oral 1524 Output: Urine 50 250 1000 Other: Voiding Method Bedside Commode Bedside Commode External Catheter External Catheter # Voids 1 - Labs CBC & Chem 7: 03/11/24 11:29 03/11/24 05:59 Labs: Abnormal Lab Results - Last 24 Hours (Table) 03/09/24 03/11/24 03/11/24 Range/Units 23:00 05:59 05:59 WBC 4.45 L (4.50-10.00) X 10*3/uL RBC 2.29 L (4.10-5.20) X 10*6/uL Hgb 6.7 A* (12.0-15.0) g/dL Hct 22.1 L (37.2-46.3) % MCHC 30.3 L (32.0-37.0) g/dL Carbon Dioxide 21.4 L (21.6-31.8) mmol/L BUN/Creatinine Ratio 22.88 H (12.00-20.00) Ratio Calcium 8.3 L (8.7-10.3) mg/dL Total Bilirubin <0.2 L (0.3-1.2) mg/dL Total Protein 4.9 L (6.2-8.2) g/dL Albumin 2.9 L (3.8-4.9) g/dL Albumin/Globulin Ratio 1.45 L (1.60-3.17) Ratio Crossmatch See Detail 03/11/24 Range/Units 11:29 WBC (4.50-10.00) X 10*3/uL RBC 2.59 L (4.10-5.20) X 10*6/uL Hgb 7.7 L (12.0-15.0) g/dL Hct 24.3 L (37.2-46.3) % MCHC (32.0-37.0) g/dL Carbon Dioxide (21.6-31.8) mmol/L BUN/Creatinine Ratio (12.00-20.00) Ratio Calcium (8.7-10.3) mg/dL Total Bilirubin (0.3-1.2) mg/dL Total Protein (6.2-8.2) g/dL Albumin (3.8-4.9) g/dL Albumin/Globulin Ratio (1.60-3.17) Ratio Crossmatch
[2024-03-11] MEDS ORDERED: PEG 3350 (236 GM/BTL) + LYTES 4,000 ML BOTTLE PO ONE (14:30)
[2024-03-11 15:16] VITALS: BMI 22.1
--- NOTE | 2024-03-11 15:43 | P.PN ---
Subjective Progress Note Date: 03/11/24 Interval History: Patient is a 78-year-old female with A-fib on aspirin and Plavix, hypertension, asthma, GERD, and chronic weakness presented to the emergency department for 1 day of severe diarrhea and weakness. Collateral obtained from . Yesterday she had an episode of very dark diarrhea and when he tried to get her cleaned up in the shower, she "slumped down" due to weakness but did not lose consciousness. He called EMS to help pick her up and decided to bring her to the ED due to the weakness. He has noticed only 1 other episode of melena about 1 week ago. She has had weakness for a long time but has been worsening since the spring 2023 when she was hospitalized for ischemic colitis. He notes that in March 2023 she had an ablation for her A-fib; she was then placed on Eliquis, aspirin, and Plavix. About a month ago she had a Watchman device placed and at that time Eliquis was stopped. She denies chest pain, abdominal pain, nausea, vomiting, hematochezia, dysuria, hematuria. Chest x-ray noncontributory. CT angio abdomen and pelvis shows no source of active GI hemorrhage. WBCs 11.0, hemoglobin 8.2, hematocrit 24.7, PTT 20.8, sodium 133, BUN 34, creatinine 1.56, total protein 5.8, albumin 3.2. Urinalysis shows: Trace protein, blood, RBCs 54, WBCs 23, hyaline casts. Stool occult blood positive. BP [id number]/60s70s. 03/11--patient was seen and examined today. Patient's hemoglobin dropped to 6.7, 1 unit of packed RBCs ordered but patient wanted to hold off blood transfusion for now, repeat hemoglobin 7.7. Vital stable. Will continue monitor H&H every 6 hours and transfuse for hemoglobin less than 7-- wanted to hold off, wanted hematology consult which has been consulted. Holding aspirin and Plavix, cardiology consulted for recommendation regarding dual antiplatelet patient had a Watchman device placement about a month ago currently has been off Eliquis since that time. General surgery consulted, plan for EGD and colonoscopy once stable. Iron studies ordered. Cardiology consulted, planning for echocardiogram. Hematology consulted. Assessment and plan: GI bleed: Melena: Hypotension: Acute blood loss anemia on chronic anemia: Recent EGD and colonoscopy showing ischemic colitis in October 2023: Presented with episode of melena about 1 week ago, dark stools yesterday, syncopal episode. Hemoglobin dropped from 8.2-6.7. 1 unit of packed RBCs ordered 03/11 Monitor H&H every 6 hours, transfuse for hemoglobin less than 7.0. Protonix IV Unasyn Holding dual antiplatelet, cardiology consulted for recommendations regarding antiplatelet, patient has a Watchman device placed about a month ago. Iron studies. Hematology consult. 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 Chronic atrial fibrillation status post Watchman device: Currently off Eliquis, Watchman device about a month ago, was on aspirin and Plavix, holding in the setting of GI bleed Cardiology consulted. Acute kidney injury: Secondary to GI bleed, prerenal IV fluids Monitor vitals, blood pressure Monitor delirium function Avoid nephrotoxin DVT prophylaxis: SCD PHYSICAL EXAMINATION: GENERAL: The patient is A&O x3, NAD HEENT: EOMI, Sclerae anicteric, Moist Mucous membranes Neck: Supple, Non tender, No JVD PULMONARY: Equal breath souds B/L, No wheezing, No crackles. CARDIOVASCULAR: S1, S2 present. No murmurs, rubs, or gallops. ABDOMEN: Soft, nontender, nondistended, normoactive bowel sounds. No guarding or rebound tenderness. MUSCULOSKELETAL: No edema, No cyanosis. No clubbing. Normal ROM. Intact peripheral pulses. EXTREMITIES: No cyanosis, clubbing, or pedal edema. NEUROLOGICAL: CN 2-12 grossly intact. No FND Skin: No Rash REVIEW OF SYSTEMS: CONSTITUTIONAL: No fever or chills. CARDIOVASCULAR: No chest pain, palpitations or syncope. PULMONARY: No shortness of breath, no cough, sore throat. GASTROINTESTINAL: No nausea, vomiting, diarrhea, abdominal pain. : No Dysuria, urgency, frequency. Extremities: No edema. NEUROLOGICAL: No headaches, no weakness, or numbness Dictation was produced using [employer] dictation software. please excuse any grammatical, word or spelling errors. Objective - Vital Signs Vital signs: Vital Signs Temp 97.9 F 03/11/24 07:53 Pulse 74 03/11/24 07:53 Resp 16 03/11/24 07:53 BP 144/77 03/11/24 07:53 Pulse Ox 96 03/11/24 07:53 FiO2 Intake & Output 03/10/24 03/11/24 03/11/24 18:59 06:59 18:59 Intake Total 1524 Output Total 50 250 Balance 1474 -250 Weight 53.07 kg Intake: Oral 1524 Output: Urine 50 250 Other: Voiding Method Bedside Commode External Catheter # Voids 1 - Labs CBC & Chem 7: 03/11/24 11:29 03/11/24 05:59 Labs: Abnormal Lab Results - Last 24 Hours (Table) 03/11/24 Range/Units 05:59 WBC 4.45 L (4.50-10.00) X 10*3/uL RBC 2.29 L (4.10-5.20) X 10*6/uL Hgb 6.7 A* (12.0-15.0) g/dL Hct 22.1 L (37.2-46.3) % MCHC 30.3 L (32.0-37.0) g/dL
[2024-03-11] MEDS: AMPICILLIN-SULBACTAM 3 GM in SODIUM CHLORIDE 0.9% 100 ML IVPB SCH (18:03)
[2024-03-11 21:15] LABS: HCT 23.3 % (34.0-46.0); HGB 7.8 gm/dL (11.4-16.0); MCH 30.6 pg (25.0-35.0); MCHC 33.2 g/dL (31.0-37.0); MCV 92.1 fL (80.0-100.0); Mean Platelet Volume 9.5; Platelet Count 178 k/uL (150-450); RBC 2.53 m/uL (3.80-5.40); WBC 4.9 k/uL (3.8-10.6)
--- NOTE | 2024-03-12 07:32 | CA ---
Transthoracic Echo Report Name: Michelle Austin Age: 78 Gender: F : 1945 Exam Date: 03/11/2024 12:31 Exam Location: [facility] Ht (in): 61 Wt (lb): 117 Ordering Physician: Liv Browne Attending/Referring Phys: Professor Of Apologetics Doris Webb RDCS Procedure CPT: Indications: LVF and pericardial effusion Cardiac Hx: Technical Quality: Fair Contrast 1: Total Dose (mL): Contrast 2: Total Dose (mL): MEASUREMENTS (Male / Female) Normal Values 2D ECHO LV Diastolic Diameter PLAX 2.9 cm 4.2 - 5.9 / 3.9 - 5.3 cm LV Systolic Diameter PLAX 1.3 cm IVS Diastolic Thickness 1.4 cm 0.6 - 1.0 / 0.6 - 0.9 cm LVPW Diastolic Thickness 1.2 cm 0.6 - 1.0 / 0.6 - 0.9 cm LV Relative Wall Thickness 0.9 FINDINGS Left Ventricle Mildly increased left ventricular wall thickness. Normal left ventricular systolic function with no obvious regional wall motion abnormalities. Left ventricular ejection fraction is estimated at 55 %. Right Ventricle Right Atrium Left Atrium Mitral Valve Aortic Valve Tricuspid Valve Pulmonic Valve Pericardium Minimal pericardial effusion (normal variant). Aorta CONCLUSIONS Limited views. Normal LV size and systolic function. Trace pericardial effusion Previewed by: Dr. Kindra Gilman MD (Electronically Signed) Final Date: 12 March 2024 07:31
[2024-03-12 08:48] LABS: HGB 7.2 g/dL (12.0-15.0); MCH 29.6 pg (27.0-32.0); MCHC 31.3 g/dL (32.0-37.0); MCV 94.7 FL (80.0-97.0); Mean Platelet Volume 11.6 FL (9.5-12.2); NRBC Per 100 WBC 0 X 10*3/uL (0.00-0.01); Platelet Count 164 X 10*3/uL (140-440); RBC 2.43 X 10*6/uL (4.10-5.20); RDW 13.3 % (11.5-14.5)
[2024-03-12] MEDS: PEG 3350 (236 GM/BTL) + LYTES 4,000 ML BOTTLE PO ONE (09:07)
[2024-03-12 09:18] LABS: ALT 12 U/L (8-44); AST 15 U/L (13-35); Albumin/Globulin Ratio 1.36 Ratio (1.60-3.17); Alkaline Phosphatase 52 U/L (41-126); BUN/Creat Ratio 17.14 Ratio (12.00-20.00); Calcium 8.7 mg/dL (8.7-10.3); Carbon Dioxide 22.3 mmol/L (21.6-31.8); Chloride 109 mmol/L (96-109); Globulin 2.2 g/dL (1.6-3.3); Glucose 88 mg/dL (70-110); Potassium 4.4 mmol/L (3.5-5.5); Sodium 139 mmol/L (135-145); Total Bilirubin <0.2 mg/dL (0.3-1.2); Total Protein 5.2 g/dL (6.2-8.2)
[2024-03-12] MEDS: ENOXAPARIN 40 MG/0.4 ML SYRINGE SQ SCH (09:55)
--- NOTE | 2024-03-12 11:48 | P.PN ---
Subjective Progress Note Date: 03/12/24 CHIEF COMPLAINT: melanotic stools HISTORY OF PRESENT ILLNESS: surgical service following regards to patient's GI bleed. Patient scheduled for EGD and colonoscopy tomorrow. Patient held off on the blood transfusion. hemoglobin 7.2. PHYSICAL EXAM: VITAL SIGNS: Reviewed. GENERAL: Well-developed in no acute distress. ABDOMEN: Soft. Nondistended. NEUROLOGIC: Alert and oriented. Cranial nerves II through XII grossly intact. ASSESSMENT: 1. acute GI bleed with melanotic stools 2. Acute blood loss anemia PLAN: -patient scheduled for EGD and colonoscopy tomorrow with Dr. derek Cedillo bowel prep today -Clear liquid diet today -Nothing by mouth after midnight -continue IV Protonix twice a day -Continue to monitor hemoglobin Physician Collection Specialist note has been reviewed by physician. Signing provider agrees with the documented findings, assessment, and plan of care. Objective - Vital Signs Vital signs: Vital Signs Temp 97.4 F L 03/12/24 07:13 Pulse 83 03/12/24 07:13 Resp 16 03/12/24 07:13 BP 147/95 03/12/24 07:13 Pulse Ox 99 03/12/24 07:13 FiO2 Intake & Output 03/11/24 03/12/24 03/12/24 18:59 06:59 18:59 Intake Total 200 Output Total 1000 600 Balance -800 -600 Weight 53.07 kg Intake: Intake, IV Titration 200 Amount Ampicillin-Sulbactam 3 gm 100 In Sodium Chloride 0.9% 100 ml @ 200 mls/hr IVPB Q8H [facility] Rx#:[id number] Doxycycline 100 mg In 100 Sodium Chloride 0.9% 100 ml @ 100 mls/hr IVPB Q12HR [facility] Rx#:[id number] Output: Urine 1000 600 Other: Voiding Method Bedside Commode Bedside Commode External Catheter External Catheter # Voids 1 - Labs CBC & Chem 7: 03/12/24 03:28 03/12/24 03:28 Labs: Abnormal Lab Results - Last 24 Hours (Table) 03/09/24 03/11/24 03/11/24 Range/Units 23:00 05:59 05:59 WBC 4.45 L (4.50-10.00) X 10*3/uL RBC 2.29 L (4.10-5.20) X 10*6/uL Hgb 6.7 A* (12.0-15.0) g/dL Hct 22.1 L (37.2-46.3) % MCHC 30.3 L (32.0-37.0) g/dL Carbon Dioxide 21.4 L (21.6-31.8) mmol/L BUN/Creatinine Ratio 22.88 H (12.00-20.00) Ratio Calcium 8.3 L (8.7-10.3) mg/dL Total Bilirubin <0.2 L (0.3-1.2) mg/dL Total Protein 4.9 L (6.2-8.2) g/dL Albumin 2.9 L (3.8-4.9) g/dL Albumin/Globulin Ratio 1.45 L (1.60-3.17) Ratio Crossmatch See Detail 03/11/24 03/11/24 03/12/24 Range/Units 11:29 20:54 03:28 WBC 4.40 L (4.50-10.00) X 10*3/uL RBC 2.59 L 2.53 L 2.43 L (4.10-5.20) X 10*6/uL Hgb 7.7 L 7.8 L 7.2 L (12.0-15.0) g/dL Hct 24.3 L 23.3 L 23.0 L (37.2-46.3) % MCHC 31.3 L (32.0-37.0) g/dL Carbon Dioxide (21.6-31.8) mmol/L BUN/Creatinine Ratio (12.00-20.00) Ratio Calcium (8.7-10.3) mg/dL Total Bilirubin (0.3-1.2) mg/dL Total Protein (6.2-8.2) g/dL Albumin (3.8-4.9) g/dL Albumin/Globulin Ratio (1.60-3.17) Ratio Crossmatch
--- NOTE | 2024-03-12 13:37 | P.PN ---
Subjective Progress Note Date: 03/12/24 HPI: 78-year-old lady with a history of bronchial asthma multiple orthopedic surgeries with prior hip surgery knee surgery peripheral neuropathy hypertension hyperlipidemia depression requiring electroconvulsive therapy in the past at [facility]. She also has paroxysmal atrial fibrillation and had issues with GI bleed. I was asked to see her because of a hemoglobin of 6.7 and she is stopped Eliquis 5 mg twice daily about a week ago but she has been on aspirin and Plavix since then. On December 10 at [facility] she had a Watchman procedure performed and continued Eliquis until a week ago. Hemoglobin is 6.7. Her main complaint was that she was feeling weak with low energy lack of strength and also feeling exhausted. She did not have any specific chest pain palpitations. She is maintaining sinus rhythm. Hemoglobin was 6.7 early this morning a repeat 1 at 11 AM today was 7.7. There is no active bleeding but she did have black tarry stool in the past few days.. RELEVANT PAST MEDICAL HISTORY: Remarkable for paroxysmal atrial fibrillation with a pulmonary vein isolation procedure performed sometime in December maintaining sinus rhythm. Also had a Watchman procedure on December 11, 2023 History of multiple orthopedic problems. Previous lap band surgery. Hypertension hyperlipidemia depression and previous episodes of syncope. She does have bronchial asthma as well.. MEDICATIONS: Aspirin and Plavix. Eliquis was stopped a week ago, pravastatin metoprolol succinate 25 mg daily Synthroid 88 mcg daily aspirin 81 mg daily lisinopril 10 mg twice daily iron supplements trazodone and melatonin. ALLERGIES: Multiple medications please see the chart. REVIEW OF SYSTEMS: Remarkable for black tarry stools and generalized fatigue lack of energy and weakness. No palpitations chest pain or shortness of breath at rest. 03/12 Patient is seen today in follow-up. She has been seen by general surgery with plan for EGD and colonoscopy tomorrow. Patient is having maroon-colored stools. Echocardiogram revealed preserved EF and trace pericardial effusion. Blood pressure 137/91, heart rate 91, pulse ox 96% on room air. Repeat blood work reveals hemoglobin 7.2 and due to active bleeding, transfusion 1 unit packed RBCs ordered for now. PHYSICIAL EXAM: Vital signs are stable there is no JVD or carotid bruit S1-S2 heard normally short systolic murmur at the base rhythm is regular lungs reveal bilateral decent air entry abdomen is soft and nontender lower extremities reveal diminished pulses Central nervous system grossly no focal deficits. There are some joint deformities noted. IMPRESSION: 1. GI bleed probably chronic and could be related to Eliquis Plavix and asp irin. Patient's last hemoglobin in November was 11.0 and now it is 6.7 and repeat 1 was 7.0.. 2. Paroxysmal atrial fibrillation s/p pulmonary vein isolation and Watchman procedure placed on December 11, 2023. 3. Benign hypertension. 4. Hypercholesterolemia. 5. Asthma 6. Multiple orthopedic problems. RECOMMENDATIONS: I saw the patient and discussed with her and her Dr. Aashish Bardales. Discussed need for blood transfusion today due to continued drop in hemoglobin and active bleeding. She is scheduled for endoscopy both EGD and colonoscopy tomorrow. Aspirin, Plavix are on hold. Echocardiogram results have been reviewed with the patient and her . Nurse practitioner note has been reviewed, I agree with documented findings and plan of care. Patient was seen and examined. Objective - Vital Signs Vital signs: Vital Signs Temp 97.4 F L 03/12/24 07:13 Pulse 83 03/12/24 07:13 Resp 16 03/12/24 07:13 BP 147/95 03/12/24 07:13 Pulse Ox 99 03/12/24 07:13 FiO2 Intake & Output 03/11/24 03/12/24 03/12/24 18:59 06:59 18:59 Intake Total 200 Output Total 1000 600 Balance -800 -600 Weight 53.07 kg Intake: Intake, IV Titration 200 Amount Ampicillin-Sulbactam 3 gm 100 In Sodium Chloride 0.9% 100 ml @ 200 mls/hr IVPB Q8H [facility] Rx#:[id number] Doxycycline 100 mg In 100 Sodium Chloride 0.9% 100 ml @ 100 mls/hr IVPB Q12HR [facility] Rx#:[id number] Output: Urine 1000 600 Other: Voiding Method Bedside Commode Bedside Commode Bedside Commode External Catheter External Catheter External Catheter # Voids 1 - Labs CBC & Chem 7: 03/12/24 03:28 03/12/24 03:28 Labs: Abnormal Lab Results - Last 24 Hours (Table) 03/11/24 03/11/24 03/12/24 Range/Units 11:29 20:54 03:28 WBC (4.50-10.00) X 10*3/uL RBC 2.53 L (3.80-5.40) m/uL Hgb 7.8 L (11.4-16.0) gm/dL Hct 23.3 L (34.0-46.0) % MCHC (32.0-37.0) g/dL Total Bilirubin <0.2 L (0.3-1.2) mg/dL Total Protein 5.2 L (6.2-8.2) g/dL Albumin 3.0 L (3.8-4.9) g/dL Albumin/Globulin Ratio 1.36 L (1.60-3.17) Ratio RBC Folate 1,308 H (280 - 791) ng/mL 03/12/24 Range/Units 03:28 WBC 4.40 L (4.50-10.00) X 10*3/uL RBC 2.43 L (3.80-5.40) m/uL Hgb 7.2 L (11.4-16.0) gm/dL Hct 23.0 L (34.0-46.0) % MCHC 31.3 L (32.0-37.0) g/dL Total Bilirubin (0.3-1.2) mg/dL Total Protein (6.2-8.2) g/dL Albumin (3.8-4.9) g/dL Albumin/Globulin Ratio (1.60-3.17) Ratio RBC Folate (280 - 791) ng/mL
--- NOTE | 2024-03-12 15:32 | P.PN ---
Subjective Progress Note Date: 03/12/24 Patient is a 78-year-old female with A-fib on aspirin and Plavix, hypertension, asthma, GERD, and chronic weakness presented to the emergency department for 1 day of severe diarrhea and weakness. Collateral obtained from . Yesterday she had an episode of very dark diarrhea and when he tried to get her cleaned up in the shower, she "slumped down" due to weakness but did not lose consciousness. He called EMS to help pick her up and decided to bring her to the ED due to the weakness. He has noticed only 1 other episode of melena about 1 week ago. She has had weakness for a long time but has been worsening since the spring 2023 when she was hospitalized for ischemic colitis. He notes that in March 2023 she had an ablation for her A-fib; she was then placed on Eliquis, aspirin, and Plavix. About a month ago she had a Watchman device placed and at that time Eliquis was stopped. She denies chest pain, abdominal pain, nausea, vomiting, hematochezia, dysuria, hematuria. Chest x-ray noncontributory. CT angio abdomen and pelvis shows no source of active GI hemorrhage. WBCs 11.0, hemoglobin 8.2, hematocrit 24.7, PTT 20.8, sodium 133, BUN 34, creatinine 1.56, total protein 5.8, albumin 3.2. Urinalysis shows: Trace protein, blood, RBCs 54, WBCs 23, hyaline casts. Stool occult blood positive. BP 01a639g/60s70s. 03/11. Patient was seen and examined today. Patient's hemoglobin dropped to 6.7, 1 unit of packed RBCs ordered but patient wanted to hold off blood transfusion for now, repeat hemoglobin 7.7. Vital stable. Will continue monitor H&H every 6 hours and transfuse for hemoglobin less than 7-- wanted to hold off, wanted hematology consult which has been consulted. Holding aspirin and Plavix, cardiology consulted for recommendation regarding dual antiplatelet patient had a Watchman device placement about a month ago currently has been off Eliquis since that time. General surgery consulted, plan for EGD and colonoscopy once stable. Iron studies ordered. Cardiology consulted, planning for echocardiogram. Hematology consulted. 03/12. Patient was seen and examined today. Hemoglobin 7.2. Surgery consulted, patient scheduled for EGD and colonoscopy tomorrow with Dr. Fried. Cardiology consulted, aspirin and Plavix are on hold. REVIEW OF SYSTEMS Vital signs are stable. General: No acute distress. HEENT: Head exam is unremarkable. Lungs: Bilateral breath sounds present; no rhonchi, wheezes, or rales. Cardiovascular: Rate and rhythm are regular. S1-S2 present. Abdomen: Nontender. Extremities: No edema present. PHYSICAL EXAMINATION Vital signs reviewed General: non toxic, no distress, appears at stated age, normal weight Derm: has an abscess that was lanced by physician the other day at home and resumed on Keflex on posterior left leg covered by dressing; no unusual rashes/lesions, warm Head: atraumatic, normocephalic, symmetric Eyes: EOMI, no lid lag, anicteric sclera, pupils equal round reactive to light ENT: nose and ears atraumatic Neck: no cervical lymphadenopathy, trachea midline, supple Mouth: no lip lesion, mucus membranes moist Cardiovascular: S1S2, regular rate and rhythm, no murmur Lungs: CTA bilateral, no rhonchi, no rales, no accessory muscle use Abdominal: soft, nontender to palpation, no guarding Ext: positive dorsalis pedis pulse bilateral, no edema Neuro: CN II-XI grossly intact, no gross focal neuro deficits Psych: alert, oriented, appropriate affect and mood DVT prophylaxis: SCD Assessment and plan: # GI bleed Patient is scheduled for EGD colonoscopy on 03/13/2024. # Melena # Hypotension Monitor vitals closely # Acute blood loss anemia on chronic anemia Recent EGD and colonoscopy showing ischemic colitis in October 2023 Presented with episode of melena about 1 week ago, dark stools yesterday, syncopal episode. Hemoglobin dropped from 8.2-6.7. 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 # Chronic atrial fibrillation status post Watchman device Currently off Eliquis Watchman device about a month ago, was on aspirin and Plavix, holding in the setting of GI bleed Cardiology consulted # Acute kidney injury, likely secondary to GI bleed, prerenal IV fluids Monitor vitals, blood pressure Monitor delirium function Avoid nephrotoxin Labs and medication were reviewed. Continue same treatment. Continue with symptomatic treatment. Resume home medication. Monitor labs and vitals. DVT and GI prophylaxis. Further recommendations as per clinical course of the patient. Objective - Vital Signs Vital signs: Vital Signs Temp 98.4 F 03/12/24 01:16 Pulse 87 03/12/24 01:16 Resp 16 03/12/24 01:16 BP 122/85 03/12/24 01:16 Pulse Ox 99 03/12/24 01:16 FiO2 Intake & Output 03/11/24 03/11/24 03/12/24 06:59 18:59 06:59 Intake Total 200 Output Total 250 1000 600 Balance -250 -800 -600 Weight 53.07 kg Intake: Intake, IV Titration 200 Amount Ampicillin-Sulbactam 3 gm 100 In Sodium Chloride 0.9% 100 ml @ 200 mls/hr IVPB Q8H [facility] Rx#:[id number] Doxycycline 100 mg In 100 Sodium Chloride 0.9% 100 ml @ 100 mls/hr IVPB Q12HR [facility] Rx#:[id number] Output: Urine 250 1000 600 Other: Voiding Method Bedside Commode Bedside Commode Bedside Commode External Catheter External Catheter External Catheter # Voids 1 - Labs CBC & Chem 7: 03/12/24 03:28 03/12/24 03:28 Labs: Abnormal Lab Results - Last 24 Hours (Table) 03/09/24 03/11/24 03/11/24 Range/Units 23:00 05:59 05:59 WBC 4.45 L (4.50-10.00) X 10*3/uL RBC 2.29 L (4.10-5.20) X 10*6/uL Hgb 6.7 A* (12.0-15.0) g/dL Hct 22.1 L (37.2-46.3) % MCHC 30.3 L (32.0-37.0) g/dL Carbon Dioxide 21.4 L (21.6-31.8) mmol/L BUN/Creatinine Ratio 22.88 H (12.00-20.00) Ratio Calcium 8.3 L (8.7-10.3) mg/dL Total Bilirubin <0.2 L (0.3-1.2) mg/dL Total Protein 4.9 L (6.2-8.2) g/dL Albumin 2.9 L (3.8-4.9) g/dL Albumin/Globulin Ratio 1.45 L (1.60-3.17) Ratio Crossmatch See Detail 03/11/24 03/11/24 Range/Units 11:29 20:54 WBC (4.50-10.00) X 10*3/uL RBC 2.59 L 2.53 L (4.10-5.20) X 10*6/uL Hgb 7.7 L 7.8 L (12.0-15.0) g/dL Hct 24.3 L 23.3 L (37.2-46.3) % MCHC (32.0-37.0) g/dL Carbon Dioxide (21.6-31.8) mmol/L BUN/Creatinine Ratio (12.00-20.00) Ratio Calcium (8.7-10.3) mg/dL Total Bilirubin (0.3-1.2) mg/dL Total Protein (6.2-8.2) g/dL Albumin (3.8-4.9) g/dL Albumin/Globulin Ratio (1.60-3.17) Ratio Crossmatch
[2024-03-12 16:22] LABS: % Iron Saturation 14.89 (12.00-45.00); Ferritin 74.5 ng/mL (10.0-291.0)
--- NOTE | 2024-03-12 17:48 | P.CONS ---
History of Present Illness - Reason for Consult Consult date: 03/12/24 hx MGUS Requesting physician: Tuan Reed - Chief Complaint dark stools - History of Present Illness Patient is a 78 year old female with a history of MGUS. Follows with Dr. Victor. Paraprotein labs obtained on last follow up in November 2023, showed stable disease. Hgb in clinic has been in 12 range previously, last cbc on 12/06/23 showed hgb 9.9, MCV 91.4, iron saturation 13.0%, ferritin 146. She has continued on oral iron Patient presented to emergency room with complaints of progressing weakness. She also noted melena prior to arrival. Patient is on Eliquis 5 mg twice daily, aspirin and Plavix. She underwent Watchman procedure in December 2023. Eliquis was stopped 1 week ago. Patient also reports she has been having mild intermittent dizziness. Denies syncope, shortness of breath and chest pain. Patient did undergo endoscopic evaluation in 08/2023 which did not show active bleed but was treated for acute colitis. Upon admit chest x-ray showed no acute call cardiopulmonary processes. CTA abdomen and pelvis showed no source of active GI hemorrhage. Hemoglobin was noted at 6.7, repeat hemoglobin was 7.7 and patient did not receive a blood transfusion. Today hemoglobin 7.2, MCV 94.7. WBC 4.4, platelets 164,000. LFTs, bilirubin and lipase WNL. Creatinine 0.8, GFR 75. General surgery has been consulted and plan for EGD and colonoscopy tomorrow. Review of Systems 10 point ROS is negative except as stated in the HPI Past Medical History Past Medical History: Atrial Fibrillation, Asthma, GERD/Reflux, Hyperlipidemia, Hypertension, Osteoarthritis (OA), Thyroid Disorder Additional Past Medical History / Comment(s): SOB inceased since afib dx in October 2022,recent January 2023 admission for pneumonia-last dose prednisone taper 01-30-23, Insomnia, past migraines,PAST HYPERTENSION , sinus problems at times,HIP DISLOCATION X20, legally blind Lt eye,Covid infection spring 2021 History of Any Multi-Drug Resistant Organisms: None Reported Past Surgical History: Bariatric Surgery, Joint Replacement, Orthopedic Surgery, Tubal Ligation Additional Past Surgical History / Comment(s): 2003 lap band, panniculectomy, R hip ORIF/total arthroplasty, L hip arthroplasty x 2, r knee ACL repair and total right arthroplasty, R thumb sx, D&Cs, EGDs/colonoscopies, R breast benign bx. EGD Past Anesthesia/Blood Transfusion Reactions: No Reported Reaction Past Psychological History: ADD/ADHD, Anxiety, Bipolar, Depression Additional Psychological History / Comment(s): PANIC ATTACK ,ADD, previously undergone [facility] Smoking Status: Former smoker Past Alcohol Use History: Occasional Additional Past Alcohol Use History / Comment(s): QUIT SMOKING 1988 STARTED SMOKING AT AGE 17. SMOKED 1PPD. Past Drug Use History: None Reported - Past Family History Mother History Unknown: Yes Family Medical History: Cancer Additional Family Medical History / Comment(s): BLADDER CA- AT 70 YEARS OLD. Father History Unknown: Yes Family Medical History: Coronary Artery Disease (CAD), Myocardial Infarction (MA) Additional Family Medical History / Comment(s): AT 60 YRS OLD Medications and Allergies Home Medications Medication Instructions Recorded Confirmed Type Albuterol Sulfate [Albuterol 2 puff INHALATION RT-QID PRN 03/12/20 03/10/24 History Sulfate Hfa] Levothyroxine Sodium [Synthroid] 88 mcg PO DAILY@1200 03/12/20 03/10/24 History Montelukast Sodium [Singulair] 10 mg PO 03/12/20 03/10/24 History Multivit-Min/Iron/Folic/Lutein 1 tab PO DAILY@1200 03/12/20 03/10/24 History [Centrum Silver Women Tablet] Alendronate Sodium [Fosamax] 70 mg PO 01/23/22 03/10/24 History Folic Acid 0.8 mg PO DAILY@1200 07/15/22 03/10/24 History Divalproex Sodium [Depakote] 500 mg PO HS 01/14/23 03/10/24 History L.acidoph,Paracasei, B.lactis 1 cap PO DAILY@1200 01/14/23 03/10/24 History [Probiotic] Pravastatin Sodium [Pravachol] 40 mg PO HS 01/14/23 03/10/24 History lisinopriL [Zestril] 10 mg PO BID 01/14/23 03/10/24 History traZODone HCL [Desyrel] 50 mg PO HS 01/14/23 03/10/24 History Calcium Carbonate [Calcium] 600 mg PO DAILY@1200 08/31/23 03/10/24 History Cetirizine HCl [Zyrtec] 10 mg PO HS 08/31/23 03/10/24 History Metoprolol Succinate [Metoprolol 25 mg PO DAILY 08/31/23 03/10/24 History Succinate ER] Melatonin 10 mg PO HS 11/14/23 03/10/24 History Omeprazole 20 mg PO BID 11/14/23 03/10/24 History buPROPion XL [Wellbutrin XL] 150 mg PO DAILY 11/14/23 03/10/24 History Aspirin EC [Ecotrin Low Dose] 81 mg PO DAILY 03/10/24 03/10/24 History Cephalexin [Keflex] 500 mg PO Q8HR 03/10/24 03/10/24 History Clopidogrel [Plavix] 75 mg PO DAILY 03/10/24 03/10/24 History Ferrous Sulfate [Feosol] 325 mg PO HS 03/10/24 03/10/24 History QUEtiapine [SEROquel] 200 mg PO HS 03/10/24 03/10/24 History Allergies Allergy/AdvReac Type Severity Reaction Status Date / Time buspirone [From BuSpar] AdvReac Insomnia Verified 03/10/24 11:22 fluticasone furoate AdvReac HTN Verified 03/10/24 11:22 [From Trelegy Ellipta] lurasidone [From Latuda] AdvReac Parkinson Verified 03/10/24 11:22 Symptoms Opioids - Morphine Analogues AdvReac AGITATION Verified 03/10/24 11:22 Opioids-Meperidine and AdvReac AGITATION Verified 03/10/24 11:22 Related spironolactone AdvReac ANXIETY Verified 03/10/24 11:22 [From Aldactone] AND DEPRESSION umeclidinium AdvReac HTN Verified 03/10/24 11:22 [From Trelegy Ellipta] vilanterol AdvReac HTN Verified 03/10/24 11:22 [From Trelegy Ellipta] OPIATES AdvReac Unknown AGITATION Uncoded 01/30/23 13:38 Physical Exam Vitals: Vital Signs Temp Pulse Pulse Resp BP BP Pulse Ox 03/12/24 13:38 98.4 F 95 20 139/91 100 03/12/24 13:31 98.1 F 102 H 20 168/107 03/12/24 13:18 97.9 F 91 20 137/91 96 03/12/24 13:08 97.9 F 104 H 20 142/100 98 03/12/24 12:22 97.9 F 104 H 20 142/100 98 03/12/24 07:13 97.4 F L 83 16 147/95 99 03/12/24 01:16 98.4 F 87 16 122/85 99 03/11/24 19:17 98.6 F 86 20 138/61 97 Intake and Output 03/12/24 03/12/24 03/12/24 06:59 14:59 22:59 Intake Total 0 Output Total 600 Balance -600 0 Intake: Blood Product 0 Rc As-1 Unit 0 [id number] Output: Urine 600 Other: Voiding Method Bedside Commode External Catheter # Voids 1 # Bowel Movements 2 - Constitutional General appearance: average body habitus, no acute distress - EENT Eyes: anicteric sclerae, EOMI ENT: hearing grossly normal - Respiratory Respiratory: bilateral: CTA - Cardiovascular Rhythm: regular Heart sounds: normal: S1, S2 - Gastrointestinal General gastrointestinal: soft, no tenderness - Integumentary bandaged wound to left posterior thigh Integumentary: no cyanotic - Musculoskeletal Musculoskeletal: generalized weakness - Psychiatric Psychiatric: A&O x's 3 Results CBC & Chem 7: 03/12/24 03:28 03/12/24 03:28 Labs: Abnormal Lab Results - Last 24 Hours (Table) 03/09/24 03/11/24 03/11/24 Range/Units 23:00 11:29 20:54 WBC (4.50-10.00) X 10*3/uL RBC 2.53 L (3.80-5.40) m/uL Hgb 7.8 L (11.4-16.0) gm/dL Hct 23.3 L (34.0-46.0) % MCHC (32.0-37.0) g/dL Total Bilirubin (0.3-1.2) mg/dL Total Protein (6.2-8.2) g/dL Albumin (3.8-4.9) g/dL Albumin/Globulin Ratio (1.60-3.17) Ratio RBC Folate 1,308 H (280 - 791) ng/mL Crossmatch See Detail 03/12/24 03/12/24 Range/Units 03:28 03:28 WBC 4.40 L (4.50-10.00) X 10*3/uL RBC 2.43 L (3.80-5.40) m/uL Hgb 7.2 L (11.4-16.0) gm/dL Hct 23.0 L (34.0-46.0) % MCHC 31.3 L (32.0-37.0) g/dL Total Bilirubin <0.2 L (0.3-1.2) mg/dL Total Protein 5.2 L (6.2-8.2) g/dL Albumin 3.0 L (3.8-4.9) g/dL Albumin/Globulin Ratio 1.36 L (1.60-3.17) Ratio RBC Folate (280 - 791) ng/mL Crossmatch Chest x-ray: report reviewed CT scan - abdomen: report reviewed CT scan - pelvis: report reviewed Assessment and Plan (1) Anemia Current Visit: Yes Status: Acute Priority: High Code(s): D64.9 - ANEMIA, UNSPECIFIED SNOMED Code(s): 883655639 (2) MGUS (monoclonal gammopathy of unknown significance) Current Visit: Yes Status: Acute Priority: Medium Code(s): D47.2 - MONOCLONAL GAMMOPATHY SNOMED Code(s): 658082825 (3) Black tarry stools Current Visit: Yes Status: Acute Priority: High Code(s): K92.1 - MELENA SNOMED Code(s): 186071443 (4) GI bleed Current Visit: Yes Status: Acute Priority: High Code(s): K92.2 - GASTROINTESTINAL HEMORRHAGE, UNSPECIFIED SNOMED Code(s): 60844368 (5) Weakness Current Visit: Yes Status: Acute Priority: High Code(s): R53.1 - WEAKNESS SNOMED Code(s): 86513937 Plan: Anemia Presented to emergency room with complaints of progressing weakness. She also noted melena prior to arrival. Patient is on Eliquis 5 mg twice daily, aspirin and Plavix. She underwent Watchman procedure in December 2023. Eliquis was stopped 1 week ago. She underwent endoscopic evaluation in 08/2023 which did not show active bleed but was treated for acute colitis. Hgb in clinic has been in 12 range previously, but last cbc on 12/06/23 showed hgb 9.9, MCV 91.4, iron saturation 13.0%, ferritin 146. She has continued on oral iron -Hemoglobin was noted at 6.7, repeat hemoglobin was 7.7 and patient did not receive a blood transfusion. Today hemoglobin 7.2, MCV 94.7. WBC 4.4, platelets 164,000 -Anemia labs ordered, results pending -General surgery has been consulted and plan for EGD and colonoscopy tomorrow -Due to acute GI bleed and anemia, will hold anticoagulation. SCDs ordered for DVT prophylaxis -Continue to monitor CBC, transfuse for hgb less than 7 or if symptomatic MGUS: -Follows with Dr. Victor -History of MGUS, disease stable at last check up in November 2023 -Continue with clinic follow up / monitoring attests: I have seen and examined patient, performed H&P, developed impression and plan of care. Discussed with dictator. Agree with documentation, dictated as a scribe
[2024-03-12 18:31] LABS: HCT 29.8 % (34.0-46.0); HGB 10.2 gm/dL (11.4-16.0); MCH 30.7 pg (25.0-35.0); MCHC 34.4 g/dL (31.0-37.0); MCV 89.3 fL (80.0-100.0); Mean Platelet Volume 8.8; Platelet Count 187 k/uL (150-450); RBC 3.34 m/uL (3.80-5.40); RDW 14.1 % (11.5-15.5)
[2024-03-12] MEDS: METOPROLOL SUCCINATE (ER) 25 MG TAB.ER.24H PO SCH (20:25)
[2024-03-13 04:33] LABS: HCT 28.4 % (34.0-46.0); HGB 9.5 gm/dL (11.4-16.0); MCHC 33.5 g/dL (31.0-37.0); MCV 89.5 fL (80.0-100.0); Platelet Count 185 k/uL (150-450); RBC 3.17 m/uL (3.80-5.40); RDW 14.4 % (11.5-15.5); WBC 4.6 k/uL (3.8-10.6)
[2024-03-13 04:35] LABS: African American GFR (CKD) >90 (>60 ml/min/1.73 sqM); Anion Gap 4 mmol/L; Blood Urea Nitrogen 9 mg/dL (7-17); Calcium 8.7 mg/dL (8.4-10.2); Carbon Dioxide 26 mmol/L (22-30); Chloride 106 mmol/L (98-107); Glucose 80 mg/dL (74-99); Non-African American GFR(CKD) 82 (>60 ml/min/1.73 sqM); Sodium 136 mmol/L (137-145)
[2024-03-13] MEDS ORDERED: PROPOFOL 10 MG/ML 20 ML VIAL IV ONE (10:43)
[2024-03-13] MEDS ORDERED: LIDOCAINE 2% (PF) 20 MG/ML 5 ML VIAL ONE (10:43)
[2024-03-13] MEDS: IV FLUID CONTINUATION 600 ML IV ONE (10:45)
--- NOTE | 2024-03-13 11:24 | P.OP ---
Date of Procedure: 03/13/24 Preoperative Diagnosis: GI bleed Postoperative Diagnosis: Antral gastritis Internal hemorrhoids Procedure(s) Performed: EGD Colonoscopy Anesthesia: MAC Surgeon: Rolo Fried Pathology: other (Antrum) Condition: stable Disposition: PACU Description of Procedure: Was placed on the endoscopy table in the lateral position. She received IV sedation. The gas was placed oropharynx passed in the esophagus and stomach. Scope was in place through the pylorus. The first and second portion of the duodenum appeared normal. Scope was brought back to the antrum this appeared minimal Flaim. A biopsy performed. Scope was then retroflexed remainder the stomach appeared normal. The GE junction was at 40 cm. The distal esophagus appeared normal. The proximal esophagus were normal scope withdrawn for the patient. Next digital rectal exam was performed. There were internal hemorrhoids noted. There was some bleeding from internal hemorrhoids. The flex colonoscope was then placed patient anus passed throughout the entire colon. Colon was quite tortuous. The ileocecal valve was visualized. The cecum, ascending and transverse colon appeared normal. The descending and sigmoid colon appeared normal. The scope was brought back to the rectum this appeared normal. Scope withdrawn through the anus and some minimal bleeding from internal hemorrhoids was noted. Scope withdrawn for the patient.
[2024-03-13] MEDS: SODIUM FERRIC GLUCONAT-SUCROSE 125 MG in SODIUM CHLORIDE 0.9% 100 ML IVPB SCH (12:03)
--- NOTE | 2024-03-13 12:04 | P.PN ---
Subjective Progress Note Date: 03/13/24 No acute events. Scheduled today for colonoscopy/EGD. S/p 1 unit PRBCs, hgb had good response, hgb today 9.5 from 7.2. She states she hasn't really felt any improvement in symptoms after transfusion Objective - Vital Signs Vital signs: Vital Signs Temp 97.7 F 03/13/24 07:15 Pulse 67 03/13/24 07:15 Resp 14 03/13/24 07:15 BP 168/93 03/13/24 07:15 Pulse Ox 99 03/13/24 07:15 FiO2 Intake & Output 03/12/24 03/13/24 03/13/24 18:59 06:59 18:59 Intake Total 310 740 Output Total 3 Balance 310 737 Intake: Intake, IV Titration 200 Amount Ampicillin-Sulbactam 3 gm 100 In Sodium Chloride 0.9% 100 ml @ 200 mls/hr IVPB Q8H [facility] Rx#:[id number] Doxycycline 100 mg In 100 Sodium Chloride 0.9% 100 ml @ 100 mls/hr IVPB Q12HR [facility] Rx#:[id number] Oral 540 Blood Product 310 Rc As-1 Unit 310 [id number] Output: Urine/Stool Mix 3 Other: Voiding Method Bedside Commode Bedside Commode External Catheter External Catheter # Voids 2 3 # Bowel Movements 2 5 - Constitutional General appearance: Present: no acute distress - EENT Eyes: Present: anicteric sclerae, EOMI ENT: Present: hearing grossly normal - Respiratory Details: breathing is even and unlabored - Cardiovascular Details: skin warm and dry - Gastrointestinal General gastrointestinal: Present: soft. Absent: tenderness - Integumentary Integumentary: Present: pale. Absent: cyanotic - Musculoskeletal Musculoskeletal: Present: generalized weakness - Psychiatric Psychiatric: Present: A&O x's 3 - Labs CBC & Chem 7: 03/13/24 03:21 03/13/24 03:21 Labs: Abnormal Lab Results - Last 24 Hours (Table) 03/09/24 03/11/24 03/12/24 Range/Units 23:00 05:59 17:55 RBC 3.34 L (3.80-5.40) m/uL Hgb 10.2 L (11.4-16.0) gm/dL Hct 29.8 L (34.0-46.0) % Sodium (137-145) mmol/L Iron 35 L (50-170) UG/DL Transferrin 168.0 L (204.0-354.0) mg/dL Crossmatch See Detail 03/13/24 03/13/24 Range/Units 03:21 03:21 RBC 3.17 L (3.80-5.40) m/uL Hgb 9.5 L (11.4-16.0) gm/dL Hct 28.4 L (34.0-46.0) % Sodium 136 L (137-145) mmol/L Iron (50-170) UG/DL Transferrin (204.0-354.0) mg/dL Crossmatch Assessment and Plan (1) Anemia Current Visit: Yes Status: Acute Priority: High Code(s): D64.9 - ANEMIA, UNSPECIFIED SNOMED Code(s): 600016880 (2) MGUS (monoclonal gammopathy of unknown significance) Current Visit: Yes Status: Acute Priority: Medium Code(s): D47.2 - MONOCLONAL GAMMOPATHY SNOMED Code(s): 180028506 (3) Black tarry stools Current Visit: Yes Status: Acute Priority: High Code(s): K92.1 - MELENA SNOMED Code(s): 086830112 (4) GI bleed Current Visit: Yes Status: Acute Priority: High Code(s): K92.2 - GASTR OINTESTINAL HEMORRHAGE, UNSPECIFIED SNOMED Code(s): 91993499 (5) Weakness Current Visit: Yes Status: Acute Priority: High Code(s): R53.1 - WEAKNESS SNOMED Code(s): 63511609 Plan: Iron deficiency anemia: Presented to emergency room with complaints of progressing weakness. She also noted melena prior to arrival. Patient is on Eliquis 5 mg twice daily, aspirin and Plavix. She underwent Watchman procedure in December 2023. Eliquis was stopped 1 week ago. She underwent endoscopic evaluation in 08/2023 which did not show active bleed but was treated for acute colitis. Hgb in clinic has been in 12 range previously, but last cbc on 12/06/23 showed hgb 9.9, MCV 91.4, iron saturation 13.0%, ferritin 146. She has continued on oral iron -Hemoglobin was noted at 6.7, repeat hemoglobin was 7.7 and patient did not receive a blood transfusion. WBC, plts in normal range -S/p 1 unit PRBCs, with good response in hgb, 9.5 today from 7.2 -Anemia labs consistent with [place], no B12 or folate deficiency noted. Parenteral iron ordered -General surgery has been consulted and plan for EGD and colonoscopy today -Due to acute GI bleed and anemia, will hold anticoagulation. SCDs ordered for DVT prophylaxis -Likely will have to have dual antiplatelet therapy adjusted by cardiology -Continue to monitor CBC, transfuse for hgb less than 7 or if symptomatic MGUS: -Follows with Dr. Victor -History of MGUS, disease stable at last check up in November 2023 -Continue with clinic follow up /monitoring attests: I have seen and examined patient, performed H&P, developed impression and plan of care. Discussed with dictator. Agree with documentation, dictated as a scribe
[2024-03-13 12:39] VITALS: BP 166/71; PULSE 60; RESP 16; TEMP 98.1
--- NOTE | 2024-03-13 13:30 | P.PN ---
Subjective Progress Note Date: 03/13/24 HPI: 78-year-old lady with a history of bronchial asthma multiple orthopedic surgeries with prior hip surgery knee surgery peripheral neuropathy hypertension hyperlipidemia depression requiring electroconvulsive therapy in the past at [facility]. She also has paroxysmal atrial fibrillation and had issues with GI bleed. I was asked to see her because of a hemoglobin of 6.7 and she is stopped Eliquis 5 mg twice daily about a week ago but she has been on aspirin and Plavix since then. On December 10 at [facility] she had a Watchman procedure performed and continued Eliquis until a week ago. Hemoglobin is 6.7. Her main complaint was that she was feeling weak with low energy lack of strength and also feeling exhausted. She did not have any specific chest pain palpitations. She is maintaining sinus rhythm. Hemoglobin was 6.7 early this morning a repeat 1 at 11 AM today was 7.7. There is no active bleeding but she did have black tarry stool in the past few days.. RELEVANT PAST MEDICAL HISTORY: Remarkable for paroxysmal atrial fibrillation with a pulmonary vein isolation procedure performed sometime in December maintaining sinus rhythm. Also had a Watchman procedure on December 11, 2023 History of multiple orthopedic problems. Previous lap band surgery. Hypertension hyperlipidemia depression and previous episodes of syncope. She does have bronchial asthma as well.. MEDICATIONS: Aspirin and Plavix. Eliquis was stopped a week ago, pravastatin metoprolol succinate 25 mg daily Synthroid 88 mcg daily aspirin 81 mg daily lisinopril 10 mg twice daily iron supplements trazodone and melatonin. ALLERGIES: Multiple medications please see the chart. REVIEW OF SYSTEMS: Remarkable for black tarry stools and generalized fatigue lack of energy and weakness. No palpitations chest pain or shortness of breath at rest. 03/12 Patient is seen today in follow-up. She has been seen by general surgery with plan for EGD and colonoscopy tomorrow. Patient is having maroon-colored stools. Echocardiogram revealed preserved EF and trace pericardial effusion. Blood pressure 137/91, heart rate 91, pulse ox 96% on room air. Repeat blood work reveals hemoglobin 7.2 and due to active bleeding, transfusion 1 unit packed RBCs ordered for now. 03/13 Patient is status post transfusion of 1 unit of packed RBCs. Hemoglobin yesterday afternoon was 10.2 and this morning 9.5. Creatinine 0.71 and BUN 9. C. difficile toxin was negative. Patient is status post EGD and colonoscopy which revealed antral gastritis and internal hemorrhoids. PHYSICIAL EXAM: Vital signs are stable there is no JVD or carotid bruit S1-S2 heard normally short systolic murmur at the base rhythm is regular lungs reveal bilateral decent air entry abdomen is soft and nontender lower extremities reveal diminished pulses Central nervous system grossly no focal deficits. There are some joint deformities noted. IMPRESSION: 1. GI bleed probably chronic and could be related to Eliquis Plavix and aspirin. Patient's last hemoglobin in November was 11.0 and now it is 6.7, status post transfusion of 1 unit packed RBCs 2. Paroxysmal atrial fibrillation s/p pulmonary vein isolation and Watchman procedure placed on December 11, 2023. 3. Benign hypertension. 4. Hypercholesterolemia. 5. Asthma 6. Multiple orthopedic problems. RECOMMENDATIONS: Continue to hold aspirin, Plavix for 2 weeks and then resume aspirin 81 mg only Cardiology will sign off this case and follow on an as-needed basis. Please reconsult for any new concerns. Patient may follow-up in the office in one to 2 weeks. Nurse practitioner note has been reviewed, I agree with documented findings and plan of care. Patient was seen and examined. Objective - Vital Signs Vital signs: Vital Signs Temp 97.7 F 03/13/24 07:15 Pulse 67 03/13/24 07:15 Resp 14 03/13/24 07:15 BP 168/93 03/13/24 07:15 Pulse Ox 99 03/13/24 07:15 FiO2 Intake & Output 03/12/24 03/13/24 03/13/24 18:59 06:59 18:59 Intake Total 310 740 100 Output Total 3 Balance 310 737 100 Intake: IV 100 Intake, IV Titration 200 Amount Ampicillin-Sulbactam 3 gm 100 In Sodium Chloride 0.9% 100 ml @ 200 mls/hr IVPB Q8H [facility] Rx#:[id number] Doxycycline 100 mg In 100 Sodium Chloride 0.9% 100 ml @ 100 mls/hr IVPB Q12HR [facility] Rx#:[id number] Oral 540 Blood Product 310 Rc As-1 Unit 310 [id number] Output: Urine/Stool Mix 3 Other: Voiding Method Bedside Commode Bedside Commode External Catheter External Catheter # Voids 2 3 # Bowel Movements 2 5 - Labs CBC & Chem 7: 03/13/24 03:21 03/13/24 03:21 Labs: Abnormal Lab Results - Last 24 Hours (Table) 03/09/24 03/11/24 03/12/24 Range/Units 23:00 05:59 17:55 RBC 3.34 L (3.80-5.40) m/uL Hgb 10.2 L (11.4-16.0) gm/dL Hct 29.8 L (34.0-46.0) % Sodium (137-145) mmol/L Iron 35 L (50-170) UG/DL Transferrin 168.0 L (204.0-354.0) mg/dL Crossmatch See Detail 03/13/24 03/13/24 Range/Units 03:21 03:21 RBC 3.17 L (3.80-5.40) m/uL Hgb 9.5 L (11.4-16.0) gm/dL Hct 28.4 L (34.0-46.0) % Sodium 136 L (137-145) mmol/L Iron (50-170) UG/DL Transferrin (204.0-354.0) mg/dL Crossmatch
--- NOTE | 2024-03-13 14:23 | P.DS ---
Providers Date of admission: 03/11/24 10:12 Attending physician: Jonathan Mcwilliams MD Consults: 03/10/24 01:51 Consult Physician Routine Consulting Provider: Rolo Fried Consult Reason/Comments: dark tarry stool, chronic. possible bleeding Do you want consulting provider notified?: Already Contacted 03/11/24 09:51 Consult Physician Routine Consulting Provider: Holland De Leon Consult Reason/Comments: Afib- watchman device 1 month ago, kari Ibarra regarding antiplatelets Do you want consulting provider notified?: Yes 03/11/24 11:23 Consult Physician Routine Consulting Provider: Deepti Victor Consult Reason/Comments: Known to Patient Do you want consulting provider notified?: Yes Primary care physician: Dez Bowen [facility] Course: Hospital Course: Patient is a 78-year-old female with A-fib on aspirin and Plavix, hypertension, asthma, GERD, and chronic weakness presented to the emergency department for 1 day of severe dark-colored diarrhea and weakness as well as left posterior leg wound that her had lanced prior to admission. She had no chest pain, abdominal pain, nausea, vomiting, hematochezia, dysuria, hematuria. Cardiology consulted for A-fib history and Watchman device. During her stay her hemoglobin dropped to 6.7, she was given 1 unit of packed RBCs, and hemoglobin stabilized. Heme/Onc consulted as per patient/family request. Aspirin and Plavix were held and she underwent EGD and colonoscopy by surgery team. EGD showed mild gastritis, colonoscopy showed internal hemorrhoids. No active source of GI bleed was found. Patient stable for discharge. Cardiology and heme/onc cleared patient for discharge. Final Diagnosis: #. Acute melanotic episode #. Posterior left lower extremity wound Physical examination: Vital signs reviewed General: non toxic, no distress, appears at stated age, normal weight Derm: no unusual rashes/lesions, warm; posterior left lower extremity wound with dressing Head: atraumatic, normocephalic, symmetric Eyes: EOMI, no lid lag, anicteric sclera, pupils equal round reactive to light ENT: Nose and ears atraumatic Neck: No cervical lymphadenopathy, trachea midline, supple Mouth: no lip lesion, mucus membranes moist Cardiovascular: S1S2, regular rate and rhythm, no murmurs, rubs, gallops Lungs: CTA bilateral, no rhonchi, no rales, no accessory muscle use Abdominal: soft, nontender to palpation, no guarding Ext: no gross muscle atrophy, no contractures, positive dorsalis pedis pulse bilateral, no edema Neuro: CN II-XI grossly intact, no gross focal neuro deficits Psych: Alert, oriented, appropriate affect and mood Patient Condition at Discharge: Good Plan - Discharge Summary Discharge Rx Participant: No New Discharge Prescriptions: New Pantoprazole [Protonix] 40 mg PO DAILY 14 Days #14 tab Amoxic-Pot Clav 875-125Mg [Augmentin 875-125] 1 tab PO BID 7 Days #14 tab Continue Montelukast Sodium [Singulair] 10 mg PO HS Albuterol Sulfate [Albuterol Sulfate Hfa] 2 puff INHALATION RT-QID PRN PRN Reason: Shortness Of Breath Levothyroxine Sodium [Synthroid] 88 mcg PO DAILY@1200 Multivit-Min/Iron/Folic/Lutein [Centrum Silver Women Tablet] 1 tab PO DAILY@1200 Alendronate Sodium [Fosamax] 70 mg PO AHMADI Divalproex Sodium [Depakote] 500 mg PO HS L.acidoph,Paracasei, B.lactis [Probiotic] 1 cap PO DAILY@1200 lisinopriL [Zestril] 10 mg PO BID traZODone HCL [Desyrel] 50 mg PO HS Cetirizine HCl [Zyrtec] 10 mg PO HS buPROPion XL [Wellbutrin XL] 150 mg PO DAILY Melatonin 10 mg PO HS Omeprazole 20 mg PO BID QUEtiapine [SEROquel] 200 mg PO HS Aspirin EC [Ecotrin Low Dose] 81 mg PO DAILY Ferrous Sulfate [Iron (65 MG Elemental)] 325 mg PO HS Folic Acid 0.8 mg PO DAILY@1200 Pravastatin Sodium [Pravachol] 40 mg PO HS Calcium Carbonate [Calcium] 600 mg PO DAILY@1200 Metoprolol Succinate [Metoprolol Succinate ER] 25 mg PO DAILY Discontinued Clopidogrel [Plavix] 75 mg PO DAILY Cephalexin [Keflex] 500 mg PO Q8HR Discharge Medication List Albuterol Sulfate [Albuterol Sulfate Hfa] 2 puff INHALATION RT-QID PRN 03/12/20 [History] Levothyroxine Sodium [Synthroid] 88 mcg PO DAILY@1200 03/12/20 [History] Montelukast Sodium [Singulair] 10 mg PO HS 03/12/20 [History] Multivit-Min/Iron/Folic/Lutein [Centrum Silver Women Tablet] 1 tab PO DAILY@1200 03/12/20 [History] Alendronate Sodium [Fosamax] 70 mg PO AHMADI 01/23/22 [History] Folic Acid 0.8 mg PO DAILY@1200 07/15/22 [History] Divalproex Sodium [Depakote] 500 mg PO HS 01/14/23 [History] L.acidoph,Paracasei, B.lactis [Probiotic] 1 cap PO DAILY@1200 01/14/23 [History] Pravastatin Sodium [Pravachol] 40 mg PO HS 01/14/23 [History] lisinopriL [Zestril] 10 mg PO BID 01/14/23 [History] traZODone HCL [Desyrel] 50 mg PO HS 01/14/23 [History] Calcium Carbonate [Calcium] 600 mg PO DAILY@1200 08/31/23 [History] Cetirizine HCl [Zyrtec] 10 mg PO HS 08/31/23 [History] Metoprolol Succinate [Metoprolol Succinate ER] 25 mg PO DAILY 08/31/23 [History] Melatonin 10 mg PO HS 11/14/23 [History] Omeprazole 20 mg PO BID 11/14/23 [History] buPROPion XL [Wellbutrin XL] 150 mg PO DAILY 11/14/23 [History] Aspirin EC [Ecotrin Low Dose] 81 mg PO DAILY 03/10/24 [History] Ferrous Sulfate [Iron (65 MG Elemental)] 325 mg PO HS 03/10/24 [History] QUEtiapine [SEROquel] 200 mg PO HS 03/10/24 [History] Amoxic-Pot Clav 875-125Mg [Augmentin 875-125] 1 tab PO BID 7 Days #14 tab 03/13/24 [Rx] Pantoprazole [Protonix] 40 mg PO DAILY 14 Days #14 tab 03/13/24 [Rx] Follow up Appointment(s)/Referral(s): Dez Bowen DO [Primary Care Provider] - 1-2 days Kindra Gilman MD [STAFF PHYSICIAN] - 1 Week Activity/Diet/Wound Care/Special Instructions: Resume aspirin 81 mg and March 27 Discharge Disposition: HOME WITH HOME HEALTH SERVICES
[2024-03-16] MEDS ORDERED: NON FORMULARY DRUG (Alendronate Sodium [Fosamax] 70 MG Tablet) PO SCH (09:00)
--- NOTE | 2024-04-03 12:04 | CDI ---
Documentation Clarification Form Date: 04/03/2024 11:44:11 AM From: Abena Reeder Phone: Admit Date: 03/11/2024 10:12:00 AM Patient Name: Michelle Austin Visit Number: [id number] Discharge Date: 03/13/2024 05:16:00 PM ATTENTION: The Clinical Documentation Specialists (CDI) and [facility] Coding Staff appreciate your assistance in clarifying documentation. Please respond to the clarification below the line at the bottom and electronically sign. The CDI & [facility] Coding staff will review the response and follow-up if needed. Please note: Queries are made part of the Legal Health Record. If you have any questions, please contact the author of this message via ITS. Doctor/Provider: Rolo Fried There is documentation of melena and ABLA. Additional clarification is requested. History/Risk Factors: 78yo F, gastritis, bleeding internal hemorrhoids, PAF on Eliquis, AC [place], HTN, Hypercholesterolemia, Asthma Clinical Indicators: notedmelenaprior to arrival. Patientis on Eliquis5 mg twice daily, aspirin and Plavix Hgb: 9/ 8.2 / 6.7- 7.7 9/ 6.7-7.8 / 9.5-10.2 Hct: 24.7 / 22.1 / 22.1-24.3 / 28.4-29.8 Treatment: transfusion 1 unit packed RBC; EGD and Colonoscopy Colonoscopy: There wereinternal hemorrhoidsnoted. There was somebleeding from internal hemorrhoids. The flexcolonoscopewas thenplacedpatient anus passed throughout the entire colon. Colon was quite tortuous. The ileocecal valve was visualized. The cecum, ascending and transversecolon appeared normal. The descending and sigmoid colon appeared normal. The scope was brought back to the rectum this appeared normal. Scope withdrawn through the anus and some minimalbleeding from internal hemorrhoids was noted. Can you please clarify the cause of melena/ABLA? Please select any/all applicable. [ ] Bleeding from internal hemorrhoids [ ] Chronic gastritis with bleeding [ ] Acute gastritis with bleeding [ xx ] Bleeding due to use of Eliquis [ ] Bleeding due to Clopidogrel [ ] Other, please specify [ ] Unable to determine (Template Last Revised: September 2020) MTDD
== END 2024-03-13 17:16 | disposition home health service (06) | DRG 378 ==
LOC: EC 22:41 → 5NMEDONC 03-10 01:53 → OBSVTOIN 03-11 10:12
PROVIDERS: ADMIT Internal Medicine; ATTEND Internal Medicine
PROC: 30233N1 Transfusion of Nonautologous Red Blood Cells into Peripheral Vein, Percutaneous Approach (ICD-10-PCS; 2024-03-12)
PROC: 0DB78ZX Excision of Stomach, Pylorus, Via Natural or Artificial Opening Endoscopic, Diagnostic (ICD-10-PCS; principal; 2024-03-13 10:45)
PROC: 0DJD8ZZ Inspection of Lower Intestinal Tract, Via Natural or Artificial Opening Endoscopic (ICD-10-PCS; 2024-03-13 10:45)
DX: K92.1 Melena (principal); D62 Acute posthemorrhagic anemia; N17.9 Acute kidney failure, unspecified; L02.416 Cutaneous abscess of left lower limb; K29.50 Unspecified chronic gastritis without bleeding; Z98.84 Bariatric surgery status; Z96.642 Presence of left artificial hip joint; K64.8 Other hemorrhoids; I10 Essential (primary) hypertension; K21.9 Gastro-esophageal reflux disease without esophagitis; J45.909 Unspecified asthma, uncomplicated; I48.0 Paroxysmal atrial fibrillation; Z95.818 Presence of other cardiac implants and grafts; K59.00 Constipation, unspecified; I95.9 Hypotension, unspecified; Z79.01 Long term (current) use of anticoagulants; Z79.890 Hormone replacement therapy; Z79.899 Other long term (current) drug therapy; T45.515A Adverse effect of anticoagulants, initial encounter; Z79.83 Long term (current) use of bisphosphonates; Z88.8 Allergy status to other drugs, medicaments and biological substances; Z88.5 Allergy status to narcotic agent; H54.8 Legal blindness, as defined in USA; Z86.16 Personal history of COVID-19; Z87.891 Personal history of nicotine dependence; E86.0 Dehydration; Z87.19 Personal history of other diseases of the digestive system; E78.00 Pure hypercholesterolemia, unspecified; Z79.02 Long term (current) use of antithrombotics/antiplatelets; Z79.82 Long term (current) use of aspirin; F31.9 Bipolar disorder, unspecified; F41.9 Anxiety disorder, unspecified; D47.2 Monoclonal gammopathy
CPT/HCPCS: 36415; 43239; 45378; 71045; 74174; 80048; 80053; 81001; 82140; 82272; 82607; 82728; 82747; 83540; 83550; 83605; 83690; 83735; 83921; 85025; 85027; 85610; 85730; 86850; 86900; 86901; 86920; 87324; 88305; 93005; 93308; 96361; 96374; 96375; 99285

== ENCOUNTER → 2024-06-19 | Outpatient (CLI) | payer MEDICARE ==
--- NOTE | 2024-06-19 11:22 | US ---
EXAMINATION TYPE: US arterial LE single level DATE OF EXAM: 06/19/2024 10:20 AM COMPARISONS: None. CLINICAL INDICATION: Female, 79 years old with history of I70.213 CLAUDICATION; claudication TECHNIQUE: Systolic pressures were taken of the upper and lower extremity arteries with ankle-brachia l indices and toe brachial indices calculated bilaterally. History of: Smoker: Previous Hypertension: Yes Diabetic: No Hyperlipidemia: No TIA/CVA: No Previous Vascular Surgery: No CAD: No OK: No Vascular Ulcers: No Claudication: No Gangrene: No FINDINGS: Doppler Waveforms: Right: Biphasic Left: Biphasic Brachial Artery systolic pressure: Right: 185 Left: 183 Posterior Tibial artery systolic pressure: Right: 201 Left: 215 Dorsalis Pedis artery systolic pressure: Right: 209 Left: 196 Toe artery systolic pressure: Right: Not performed Left: Not performed Ankle-Brachial Indices: Right: 1.13 Left: 1.16 (Vessel hardening > 1.4; Normal 0.9 - 1.4, Moderate 0.7 - 0.9, Severe 0.5-0.7) IMPRESSION: Normal ankle-brachial brachial indices bilaterally. [facility], , 06/19/2024 11:19 AM
== END | disposition home or self-care (01) ==
LOC: RADUSWWP 09:40
PROVIDERS: ATTEND Podiatrist Foot & Ankle Surgery
DX: I70.213 Atherosclerosis of native arteries of extremities with intermittent claudication, bilateral legs (principal); I10 Essential (primary) hypertension; Z87.891 Personal history of nicotine dependence
CPT/HCPCS: 93922